=== PATIENT | female | born 1945 | race Caucasian/White ===

== ENCOUNTER 2019-12-13 05:03 | Emergency (ER) | payer MEDICARE, OTHER, SELFPAY ==
--- NOTE | ~2019-12-13 | CT_ITS ---
EXAMINATION: CT brain wo con DATE: 12/13/2019 05:54 INDICATION: Fall with head injury and right-sided headache Parkinson's disease. TECHNIQUE: Computed tomography (CT) of the head was performed without intravenous contrast. Sagittal and coronal reconstructions were performed. The mA was adjusted according to patient size. Iterative reconstruction technique was employed. The dose-length product was 605.33 mGy-cm. COMPARISON: None FINDINGS: No fracture. No acute intracranial hemorrhage, acute infarction or abnormal extra axial fluid collect ion. Symmetric prominence of the sulci and disproportionately the lateral ventricles. There is also m ega cisterna magna. Basal cisterns are patent. No mass/mass effect. The orbits, paranasal sinuses and mastoid air cells are normal. IMPRESSION: 1. No fracture or acute intracranial process. 2. Symmetric enlargement of the lateral ventricles which is disproportionate to the larger of the sul ci most likely moderate central predominant atrophy although differential includes normal pressure hy drocephalus (NPH: clinical triad ataxia/gait disturbance, dementia, urinary incontinence). Reviewed, dictated and finalized at location A. E MAKER IMPRESSION: 1. No fracture or acute intracranial process. 2. Symmetric enlargement of the lateral ventricles which is disproportionate to the larger of the sulci most likely moderate central predominant atrophy altho ugh differential includes normal pressure hydrocephalus (NPH: clinical triad at axia/gait disturbance, dementia, urinary incontinence).
--- NOTE | ~2019-12-13 | CT_ITS ---
EXAMINATION: CT cervical spine wo con DATE: 12/13/2019 05:54 INDICATION: Head injury post fall TECHNIQUE: Computed tomography (CT) of the cervical spine was performed without intravenous contrast. Automated exposure control and iterative reconstruction technique were employed. The dose-length pro duct was 361.95 mGy-cm. COMPARISON: None FINDINGS: Straightening of the normal cervical lordosis. Likely developmental nonfusion of the ring of C1 at th e right lamina. Vertebral body heights are normal. No fracture. There is fusion across the C7-T1 disc space and left facet joint. Severe disc height loss with degenerative endplate changes at C3-C4 thro ugh C6-C7 and at T1-T2. Severe facet osteoarthritis on the right at T1-T2 and bilaterally at T2-T3 an d T3-T4. Mild to moderate facet osteoarthritis throughout the cervical spine. Posterior disc osteophy te complexes at T3-T4 through T6-T7 resulting in multilevel mild central canal stenosis. There is als o severe bilateral uncovertebral osteoarthritis throughout the cervical spine contributing to multile easton mild bilateral neural foraminal stenosis throughout the cervical spine with the exception of C2-C 3 where there is no narrowing. Atherosclerotic calcification is at the bilateral carotid bulbs. Cervi esteban soft tissues are otherwise unremarkable. Visualized portions of the airway and apices of lungs ar e clear. IMPRESSION: 1. Severe cervical spondylosis. No acute osseous abnormality. Reviewed, dictated and finalized at location A. BULATORY CARE
[2019-12-13 05:07] VITALS: BP 176/81; PULSE 74; RESP 16; TEMP 36.6; O2SAT 98
[2019-12-13 05:11] VITALS: BP 149/85; PULSE 71; RESP 22; TEMP 36.8; O2SAT 95
--- NOTE | 2019-12-13 05:21 | ED.FALL ---
HPI - Fall General Chief Complaint: Fall <Chaitanya Babb MD - Last Filed: 12/19/19 06:13> Stated Complaint: fell from bed/ ear lac <Chaitanya Babb MD - Last Filed: 12/19/19 06:13> Time Seen by Provider: 12/13/19 05:13 <Chaitanya Babb MD - Last Filed: 12/19/19 06:13> History of Present Illness HPI Narrative: She fell this morning while getting out of bed and struck her head on the table. She reports chronic pain in the neck which is somewhat worse right now. She also has a headache since the fall. She has chronic dizziness which is no worse than usual. No LOC, weakness. She has Parkinson's disease. <Chaitanya Babb MD - Last Filed: 12/19/19 06:13> Related Data Home Medications: Home Medications Medication Instructions Recorded Confirmed atorvastatin 10 mg tablet 10 mg PO DAILY 12/15/19 12/15/19 carbidopa 25 mg-levodopa 100 mg 3 tablet PO TID tablet 12/15/19 12/15/19 tablet gabapentin 300 mg capsule 600 mg PO BID cap 12/15/19 12/15/19 levothyroxine 100 mcg tablet 100 mcg PO DAILY 12/15/19 12/15/19 losartan 50 mg tablet 50 mg PO DAILY 12/15/19 metoprolol succinate 50 mg 50 mg PO DAILY 12/15/19 12/15/19 tablet,extended release 24 hr <Chaitanya Babb MD - Last Filed: 12/19/19 06:13> Allergies/Adverse Reactions: Allergies Allergy/AdvReac Type Severity Reaction Status Date / Time celecoxib Allergy Unknown Verified 07/21/18 08:20 <Chaitanya Babb MD - Last Filed: 12/19/19 06:13> Review of Systems Review of Systems: All systems reviewed & are unremarkable except as noted in HPI and below <Chaitanya Babb MD - Last Filed: 12/19/19 06:13> Constitutional: Constitutional: Denies fever(s) and Denies weakness <Chaitanya Babb MD - Last Filed: 12/19/19 06:13> Eyes: Eyes: Denies change in vision <Chaitanya Babb MD - Last Filed: 12/19/19 06:13> Cardiovascular: Cardiovascular: Denies chest pain <Chaitanya Babb MD - Last Filed: 12/19/19 06:13> Respiratory: Respiratory: Denies dyspnea <Chaitanya Babb MD - Last Filed: 12/19/19 06:13> Gastrointestinal: Gastrointestinal: Denies nausea <Chaitanya Babb MD - Last Filed: 12/19/19 06:13> Musculoskeletal: Musculoskeletal: Denies back pain <Chaitanya Babb MD - Last Filed: 12/19/19 06:13> Neurologic: Reports dizziness, Denies syncope and Reports headache(s) <Chaitanya Babb MD - Last Filed: 12/19/19 06:13> [facility]LY [facility] Past Medical History Medical History: Medical History (Updated 12/19/19 @ 06:13 by Chaitanya Babb MD) Anemia Anxiety Arthritis Breast cancer Carpal tunnel syndrome Cholecystectomy planned Fibroid tumor HTN (hypertension) Hydrocephalus Multiple allergies Parkinson disease (~2018) Spinal stenosis Thalassemia minor <Chaitanya Babb MD - Last Filed: 12/19/19 06:13> Surgical History Surgical History: Surgical History Cataract extraction status H/O partial thyroidectomy H/O vaginal hysterectomy History of carpal tunnel release History of knee replacement <Chaitanya Babb MD - Last Filed: 12/19/19 06:13> Family History Family History: Family History Mother Family history of suicide Hypertension Patient's mother is Father Family history of emphysema Patient's father is <Chaitanya Babb MD - Last Filed: 12/19/19 06:13> Social History Social History: Social History Smoking status: Never smoker Second hand tobacco smoke exposure: No Alcohol intake: current Gender identity (if verbalized by the patient): Female <Chaitanya Babb MD - Last Filed: 12/19/19 06:13> Exam Const: General: no acute distress and alert <Chaitanya Babb MD - Last Filed: 12/19/19 06:13> Orientation/consc
[2019-12-13] MEDS: ACETAMINOPHEN 500 MG TABLET 1000 MG PO (06:01)
== END 2019-12-13 06:41 | disposition home or self-care (01) ==
PROVIDERS: Emergency Provider Emergency Medicine
DX: S01.311A Laceration without foreign body of right ear, initial encounter (principal); G20 Parkinson's disease; W06.XXXA Fall from bed, initial encounter
CPT/HCPCS: 12011; 70450; 72125; 99284; A9270

== ENCOUNTER → 2020-01-04 11:56 | Outpatient (CLI) | payer MEDICARE, OTHER, SELFPAY ==
--- NOTE | ~2020-01-04 | XR_ITS ---
XR thoracic spine 2V DATE: 01/04/2020 12:30 INDICATION: Thoracic spine pain TECHNIQUE: AP, lateral and swimmer views COMPARISON: 08/24/2019 thoracic spine FINDINGS: There is dextroscoliosis. Diffuse osteopenia. There is diffuse idiopathic skeletal hyperostosis. There is prominent degenerative disc disease in the mid and lower cervical spine. There is mild to moderate anterior wedge compression of T12. Status post T12 vertebroplasty. IMPRESSION: Scoliosis, osteopenia and degenerative changes Compression fracture deformity at T12 Status post T12 vertebroplasty Reviewed, dictated and finalized at location A.
--- NOTE | ~2020-01-04 | XR_ITS ---
XR lumbar spine 6V w bending 01/04/2020 12:30 Indication: Back pain Procedure: 7 views lumbar spine including flexion/extension views Comparison: 08/24/2019 Findings: Stable chronic compression fracture of T12 with vertebroplasty changes. There is disc narro wing involving all lumbar levels with endplate degenerative change. There is moderate multilevel face t hypertrophy involving the mid and lower lumbar spine. There is dextroscoliosis of the lumbar spine centered at L2-3. There are cholecystectomy clips. No acute fracture or traumatic malalignment. No si gnificant alteration of alignment with flexion/extension. Impression: 1: Severe lumbar spondylosis with dextroscoliosis. 2: Chronic T12 compression fracture with associated vertebroplasty change. Reviewed, dictated and finalized at location A. Impression: 1: Severe lumbar spondylosis with dextroscoliosis. 2: Chronic T12 compression fracture with associated vertebroplasty change.
== END ==
PROVIDERS: PCP Family Medicine; Visit Provider Nurse Practitioner Family
DX: M47.816 Spondylosis without myelopathy or radiculopathy, lumbar region (principal); M48.54XA Collapsed vertebra, not elsewhere classified, thoracic region, initial encounter for fracture; M41.84 Other forms of scoliosis, thoracic region; M85.88 Other specified disorders of bone density and structure, other site
CPT/HCPCS: 72070; 72114

== ENCOUNTER 2020-03-17 10:00 | Outpatient (CLI) | payer MEDICARE, OTHER, SELFPAY ==
--- NOTE | ~2020-03-17 | MR_ITS ---
EXAMINATION: MR lumbar spine wo [facility] EXAM DATE: 03/17/2020 11:17 INDICATION: Low back pain. TECHNIQUE: Multi-sequential, multiplanar MR images of the lumbar spine were obtained without contrast . Sagittal T1, T2, T2 fat saturation images. Axial T2 weighted images. There is no prior study for comparison. FINDINGS: Severe disc disease at all lumbar levels, probably with partial fusion at the L5-S1 level. The conus medullaris terminates at the L1 level and has normal signal intensity and morphology. Mild diffuse loss of lumbar vertebral body heights. Chronic moderate and likely treated T12 compression f racture. Paraspinal soft tissue is unremarkable. The vertebral bodies are aligned in the AP dimensio n. Level by level evaluation: T12-L1: There is a mild to moderate diffuse disc bulge. Facet arthropathy: Mild to moderate. Neural foraminal stenosis: Mild to moderate right, mild left. Central canal stenosis: Mild to moderate. L1-L2: There is a mild to moderate diffuse disc bulge. Facet arthropathy: Moderate. Neural foraminal stenosis: Moderate left, mild right. Central canal stenosis: Mild. L2-L3: There is a mild to moderate diffuse disc bulge. Facet arthropathy: Moderate. Neural foraminal stenosis: Moderate left, mild right. Central canal stenosis: Mild. L3-L4: There is a moderate diffuse disc bulge. Facet arthropathy: Moderate. Neural foraminal stenosis: Mild to moderate bilateral. Central canal stenosis: Mild to moderate. L4-L5: There is a moderate diffuse disc bulge. Facet arthropathy: Mild to moderate. Neural foraminal stenosis: Mild to moderate bilateral. Central canal stenosis: Mild. L5-S1: There is a moderate diffuse disc bulge. Facet arthropathy: Mild. Neural foraminal stenosis: Mild left. Central canal stenosis: Minimal. IMPRESSION: 1. Advanced lumbar disc disease. 2. The left L1-2 and L2-3 neural foramen appear most narrowed on exam. Reviewed, dictated and finalized at location A.
--- NOTE | ~2020-03-17 | MR_ITS ---
EXAMINATION: MR thoracic spine wo con EXAM DATE: 03/17/2020 11:01 INDICATION: Chronic mid back pain. TECHNIQUE: Multi-sequential, multiplanar MR images of the thoracic spine were obtained without contra st. Sagittal T1, T2, T2 fat saturation, axial T2 weighted images reviewed. Comparison is made to matt or examination from 09/08/2016. FINDINGS: There is mild to moderate mid thoracic dextroscoliosis, mild lower thoracic levoscoliosis. There is moderate compression fracture of T12 which has likely been treated with methylmethacrylate. Moderate to severe disc disease T1-2, T5-T8, T10-T12, moderate at T8-9. Less at the other thoracic le vels. There is moderate to severe right neural foraminal stenosis at T1-2, moderate right neural foraminal stenosis at T10-11. Less amount of stenosis at the other levels. Small to moderate-sized thoracic dis c bulges, small protrusions with mild to moderate central canal stenosis at T11-12 and T12-L1, mild a t other levels. Spinal cord is being indented from small protrusion at T6-7 and T7-8 without cord neelima ma. There is overall moderate thoracic facet arthropathy. No endplate erosive change. Paraspinal soft tissue is unremarkable. Mild interval progression in these degenerative changes compared to prior st udy. IMPRESSION: Mild interval progression in scattered thoracic spondylosis as detailed above. No acute f indings. Reviewed, dictated and finalized at location A. IMPRESSION: Mild interval progression in scattered thoracic spondylosis as deta iled above. No acute findings.
== END 2020-03-17 10:01 | disposition home or self-care (01) ==
PROVIDERS: PCP Family Medicine; Visit Provider Nurse Practitioner Family
DX: M51.36 Other intervertebral disc degeneration, lumbar region (principal); M47.814 Spondylosis without myelopathy or radiculopathy, thoracic region; M54.5 Low back pain
CPT/HCPCS: 72146; 72148

== ENCOUNTER 2020-04-24 08:51 | Outpatient (CLI) | payer MEDICARE, OTHER, SELFPAY ==
[2020-04-24 09:08] LABS: Basophils Percent Auto 0.6 % (0.2-1.2); Eosinophils Absolute Auto 0.1 K/mm3 (0-0.3); Eosinophils Percent Auto 2.7 % (0-4.4); Hematocrit 37.9 % (37.0-47.0); Hemoglobin 11.2 g/dL (12.0-15.0); Immature Granulocyte Absolute 0.02 K/mm3 (0.00-0.031); Immature Granulocyte Percent A 0.4 % (0-0.5); Lymphocytes Absolute Auto 1.18 K/mm3 (0.9-3.2); Lymphocytes Percent Auto 22.5 % (18.3-44.2); Mean Corpuscular HGB Conc 29.6 g/dl (32-36); Mean Corpuscular Hemoglobin 18.9 pg (26-34); Mean Corpuscular Volume 63.9 fl (80-100); Mean Platelet Volume 10.1 fl (7.4-10.4); Monocytes Absolute Auto 0.3 K/mm3 (0.1-0.6); Monocytes Percent Auto 5.7 % (2.6-8.5); Neutrophils Absolute Auto 3.6 K/mm3 (1.3-6.7); Neutrophils Percent Auto 68.1 % (45.5-73.1); Platelet Count Result 181 k/mm3 (150-375); Red Blood Count 5.93 M/mm3 (4.2-5.4); White Blood Count 5.3 K/mm3 (4.5-10.0)
[2020-04-24 09:20] LABS: Potassium 4.6 mmol/L (3.4-5.0)
[2020-04-24 09:29] LABS: Alanine Aminotransferase 16 U/L (4-35); Albumin Level 4.3 g/dL (3.5-5.1); Alkaline Phosphatase 81 U/L (38-126); Aspartate Amino Transferase 26 U/L (14-36); Bilirubin,Total 0.8 mg/dL (0.2-1.3); Blood Urea Nitrogen 17 mg/dL (7-17); Calcium 9.2 mg/dL (8.4-10.2); Carbon Dioxide 33 mmol/L (22-30); Chloride 102 mmol/L (98-107); Cholesterol 154 mg/dL (0-200); Estimated Glomerular Filt Rate > 60; Glucose 125 mg/dL (65-105); HDL Direct 45 mg/dL; Sodium 137 mmol/L (137-145); Triglycerides 136 mg/dL (<150)
[2020-04-24 09:31] LABS: Anisocytosis 1+ (NORMAL); LDL Cholesterol Direct 74 mg/dL; Platelet Estimate Adequate (Adequate)
[2020-04-24 09:59] LABS: Vitamin D 25 Hydroxy 48.8 ng/mL
== END 2020-04-24 08:52 | disposition home or self-care (01) ==
LOC: ANHLAB 08:53
PROVIDERS: PCP Family Medicine; Visit Provider Nurse Practitioner
DX: D64.9 Anemia, unspecified (principal); I10 Essential (primary) hypertension; E78.5 Hyperlipidemia, unspecified; E03.9 Hypothyroidism, unspecified; E55.9 Vitamin D deficiency, unspecified
CPT/HCPCS: 36415; 80053; 80061; 82306; 84443; 85025

== ENCOUNTER 2020-05-29 14:45 | Outpatient (CLI) | payer MEDICARE, OTHER, SELFPAY ==
--- NOTE | ~2020-05-29 | XR_ITS ---
XR lumbar spine min 4V DATE: 05/29/2020 15:19 INDICATION: Low back pain radiating to left hip TECHNIQUE: AP, lateral, bilateral oblique and coned lateral lumbosacral views COMPARISON: 03/17/2020 MRI lumbar spine 08/24/2019 lumbar spine FINDINGS: Diffuse osteopenia. There is moderate anterior wedge compression fracture deformity and vertebroplasty at T12. There is degenerative spurring of the included lower thoracic spine. There is mild dextroscoliosis of the lumbar spine. There is severe degenerative disease throughout the lumbar and lumbosacral spine with virtual obliter ation of interspace and apparent fusion at L5-S1. No fracture or bone destruction of the lumbar spine is evident. The lumbar pedicles appear intact. No spondylolysis or spondylolisthesis is evident. There is degenerative change at the apophyseal join ts. The sacroiliac joints appear normal. Status post cholecystectomy. IMPRESSION: Severe degenerative changes of the thoracic and lumbar spine Compression fracture and vertebroplasty at T12 Severe degenerative disc disease throughout the lumbar spine Fusion at L5-S1 interspace Reviewed, dictated and finalized at location B.
--- NOTE | ~2020-05-29 | XR_ITS ---
XR hip LT min 3V w AP pelvis DATE: 05/29/2020 15:20 INDICATION: Generalized left hip pain TECHNIQUE: AP pelvis. AP, lateral, crosstable lateral views of left hip COMPARISON: None FINDINGS: Moderate osteopenia. No pelvic fracture or bone destruction. The pubic symphysis and sacral iliac joints are normally alig noe. No fracture, dislocation, avascular necrosis or bone destruction of the left hip. Hip joint spaces ar e symmetric and relatively preserved.. IMPRESSION: Moderate osteopenia Severe degenerative disc disease in the lower lumbar spine Reviewed, dictated and finalized at location B.
== END 2020-05-29 14:46 | disposition home or self-care (01) ==
LOC: ANHIMG 14:54
PROVIDERS: PCP Family Medicine; Visit Provider Nurse Practitioner
DX: M85.852 Other specified disorders of bone density and structure, left thigh (principal); M51.36 Other intervertebral disc degeneration, lumbar region; Z98.1 Arthrodesis status
CPT/HCPCS: 72110; 73502

== ENCOUNTER 2020-11-16 08:38 | Outpatient (CLI) | payer MEDICARE, OTHER, SELFPAY ==
[2020-11-16 09:02] LABS: Basophils Percent Auto 0.8 % (0.2-1.2); Eosinophils Absolute Auto 0.2 K/mm3 (0-0.3); Eosinophils Percent Auto 3.7 % (0-4.4); Hematocrit 37.3 % (37.0-47.0); Hemoglobin 10.9 g/dL (12.0-15.0); Immature Granulocyte Absolute 0.01 K/mm3 (0.00-0.031); Immature Granulocyte Percent A 0.2 % (0-0.5); Lymphocytes Percent Auto 31.2 % (18.3-44.2); Mean Corpuscular HGB Conc 29.2 g/dl (32-36); Mean Corpuscular Hemoglobin 18.7 pg (26-34); Mean Corpuscular Volume 63.9 fl (80-100); Mean Platelet Volume 9.2 fl (7.4-10.4); Monocytes Absolute Auto 0.3 K/mm3 (0.1-0.6); Monocytes Percent Auto 5.8 % (2.6-8.5); Neutrophils Percent Auto 58.3 % (45.5-73.1); Platelet Count Result 161 k/mm3 (150-375); Red Blood Count 5.84 M/mm3 (4.2-5.4); Red Cell Distribution Width 15.4 % (11.5-14.5); White Blood Count 5.1 K/mm3 (4.5-10.0)
[2020-11-16 09:14] LABS: Alanine Aminotransferase 11 U/L (4-35); Albumin Level 3.8 g/dL (3.5-5.1); Alkaline Phosphatase 67 U/L (38-126); Anion Gap 0 mmol/L (8-16); Aspartate Amino Transferase 19 U/L (14-36); Bilirubin,Total 0.7 mg/dL (0.2-1.3); Blood Urea Nitrogen 17 mg/dL (7-17); Calcium 8.9 mg/dL (8.4-10.2); Carbon Dioxide 36 mmol/L (22-30); Chloride 102 mmol/L (98-107); Cholesterol 128 mg/dL (0-200); Estimated Glomerular Filt Rate 54; Glucose 113 mg/dL (65-105); HDL Direct 45 mg/dL; Hemoglobin A1C 5.7 % (<5.7); Potassium 4.3 mmol/L (3.4-5.0); Sodium 138 mmol/L (137-145); Triglycerides 150 mg/dL (<150)
[2020-11-16 09:24] LABS: LDL Cholesterol Direct 55 mg/dL
[2020-11-19 06:24] LABS: Vitamin D 1,25 (OH)2 Total 36 pg/mL (18-72); Vitamin D2 1,25 (OH)2 9 pg/mL; Vitamin D3 1,25 (OH)2 27 pg/mL
== END 2020-11-16 08:39 | disposition home or self-care (01) ==
PROVIDERS: PCP Family Medicine; Visit Provider Family Medicine
DX: E55.9 Vitamin D deficiency, unspecified (principal); I10 Essential (primary) hypertension; R73.01 Impaired fasting glucose; E78.2 Mixed hyperlipidemia; E04.9 Nontoxic goiter, unspecified
CPT/HCPCS: 36415; 80053; 80061; 82652; 83036; 84443; 85025

== ENCOUNTER 2021-03-14 16:19 | Outpatient (CLI) | payer MEDICARE, OTHER, SELFPAY ==
--- NOTE | ~2021-03-14 | XR_ITS ---
XR hand LT min 3V DATE: 03/14/2021 16:37 INDICATION: Contusion TECHNIQUE: 3 views COMPARISON: None FINDINGS: There is osteoarthritis at the first carpometacarpal joint and multiple interphalangeal brooks nts. There is chondrocalcinosis of the triangular cartilage. No fracture or dislocation, periosteal reaction or bone destruction. IMPRESSION: Polyarticular osteoarthritis Reviewed, dictated and finalized at location B.
== END 2021-03-14 16:20 | disposition home or self-care (01) ==
PROVIDERS: PCP Family Medicine; Visit Provider Family Medicine
DX: S60.229A Contusion of unspecified hand, initial encounter (principal); M19.042 Primary osteoarthritis, left hand
CPT/HCPCS: 73130

== ENCOUNTER 2021-04-25 10:35 | Emergency (ER) | payer MEDICARE, OTHER, SELFPAY ==
[2021-04-25] VITALS (7 sets, daily range): BP systolic 124–142; BP diastolic 62–79; PULSE 63–81; RESP 15–22; TEMP 36.1; O2SAT 98–100
--- NOTE | ~2021-04-25 | XR_ITS ---
EXAMINATION: XR chest 2V DATE: 04/25/2021 11:04 INDICATION: Shortness of breath TECHNIQUE: AP and lateral views of the chest are obtained. COMPARISON: 09/04/2017 FINDINGS: The lungs are free of acute opacities. There is no pleural effusion or pneumothorax. The ca rdiomediastinal silhouette is normal. There are bridging osteophytes at multiple levels in the spine, consistent with diffuse idiopathic skeletal hyperostosis (DISH). There is an old healed fracture of the right clavicle. Ventriculoperitoneal shunt catheter tubing courses over the right anterior thorax . IMPRESSION: 1. No acute cardiopulmonary abnormality. Reviewed, dictated and finalized at location B.
--- NOTE | 2021-04-25 10:44 | ECG_ITS ---
Measurements Intervals [place] Rate: 76 P: 26 [place]: 149 QRS: 0 QRSD: 96 T: -2 QT: 374 QTc: 421 Interpretive Statements SINUS RHYTHM INCOMPLETE RIGHT BUNDLE BRANCH BLOCK BORDERLINE T WAVE ABNORMALITY- INFERIOR LEADS BASELINE ARTIFACT- V4-V6 BORDERLINE ECG Electronically Signed On 04-25-2021 11:32:05 CDT by Danny Valle D.O.
[2021-04-25 10:55] LABS: Basophils Percent Auto 0.6 % (0.2-1.2); Eosinophils Absolute Auto 0.1 K/mm3 (0-0.3); Eosinophils Percent Auto 1.5 % (0-4.4); Hematocrit 36.9 % (37.0-47.0); Hemoglobin 11.1 g/dL (12.0-15.0); Immature Granulocyte Absolute 0.01 K/mm3 (0.00-0.031); Immature Granulocyte Percent A 0.1 % (0-0.5); Lymphocytes Absolute Auto 2.35 K/mm3 (0.9-3.2); Lymphocytes Percent Auto 34.7 % (18.3-44.2); Mean Corpuscular HGB Conc 30.1 g/dl (32-36); Mean Corpuscular Volume 63.3 fl (80-100); Mean Platelet Volume 9.6 fl (7.4-10.4); Monocytes Absolute Auto 0.5 K/mm3 (0.1-0.6); Monocytes Percent Auto 7.2 % (2.6-8.5); Neutrophils Absolute Auto 3.8 K/mm3 (1.3-6.7); Neutrophils Percent Auto 55.9 % (45.5-73.1); Platelet Count Result 203 k/mm3 (150-375); Red Blood Count 5.83 M/mm3 (4.2-5.4); White Blood Count 6.8 K/mm3 (4.5-10.0)
[2021-04-25 11:08] LABS: D Dimer 0.57 ug/mL (<0.48)
[2021-04-25 11:09] LABS: Anion Gap 9 mmol/L (8-16); Blood Urea Nitrogen 38 mg/dL (7-17); Calcium 8.9 mg/dL (8.4-10.2); Carbon Dioxide 27 mmol/L (22-30); Chloride 102 mmol/L (98-107); Estimated CRCL calculation 34 ml/min; Estimated Glomerular Filt Rate 34; Glucose 141 mg/dL (65-105); Potassium 4.4 mmol/L (3.4-5.0); Sodium 138 mmol/L (137-145)
--- NOTE | 2021-04-25 12:18 | ED.SOB ---
HPI - SOB/Dyspnea General Chief Complaint: Shortness of Breath/Dyspnea Stated Complaint: SOB Time Seen by Provider: 04/25/21 12:07 Source: patient and RN notes reviewed Mode of arrival: ambulatory Limitations: no limitations History of Present Illness HPI Narrative: Patient 75 years old white female presented to the ED with shortness of breath started few minutes prior to arrival to the emergency room. Patient had similar symptoms few days ago while working in the garden with a very hot environment. Patient reports walking to her car was also very hot and once started driving started having shortness of breath which she is still have it right now associated with sore throat, postnasal discharge, runny nose. History of seasonal allergy. Patient denies any fever, chills, nausea, vomiting, chest pain, back pain or abdominal pain. Patient reported having similar symptoms years ago without specific diagnosis. History of hypertension, hyperlipidemia, partial thyroidectomy, patient does not smoke, drinks occasionally, no blood thinner, no aspirin. Patient is fully vaccinated for COVID-19. Related Data Home Medications Medication Instructions Recorded Confirmed methylnaltrexone 150 mg tablet 450 mg PO DAILY 01/11/21 03/29/21 Allergies Allergy/AdvReac Type Severity Reaction Status Date / Time celecoxib Allergy Mild nausea Verified 04/25/21 10:50 sulfur [From Sulfur-8] Allergy Mild abdominal Verified 04/25/21 10:50 pain Review of Systems Review of Systems: Narrative: CONSTITUTIONAL: Denies fever, chills, or sweats. EYES: Denies visual changes, redness, or discharge. ENT: Denies rhinorrhea, congestion, sore throat, or otalgia. CARDIOVASCULAR: Denies chest pain, palpitations, or edema. RESPIRATORY: Denies cough or dyspnea. GASTROINTESTINAL: Denies abdominal pain, nausea, vomiting, or diarrhea. GENITOURINARY: Denies dysuria or hematuria. SKIN: Denies rash or itching. MUSCULOSKELETAL: Denies back pain, joint pain, or myalgia. NEUROLOGIC: Denies headache, numbness, or weakness. PSYCHIATRIC: Denies anxiety or depression. [facility] Past Medical History Medical History Anemia Anxiety Arthritis Benign essential HTN Breast cancer Carpal tunnel syndrome Central retinal vein occlusion, left eye (~11/2019) Cholecystectomy planned Chronic insomnia Fibroid tumor HTN (hypertension) Hydrocephalus 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 to medical condition Multiple allergies Normal pressure hydrocephalus Parkinson disease (~2018) Spinal stenosis Thalassemia minor Surgical History Surgical History Cataract extraction status H/O partial thyroidectomy H/O vaginal hysterectomy History of carpal tunnel release History of knee replacement 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 Family History Family History Mother Family history of suicide Hypertension Patient's mother is Father Family history of emphysema Patient's father is Social History Social History Social History: Smoking status: Never smoker Second hand tobacco smoke exposure: No Alcohol intake: current Drinks per week: 2 Substance use: current Substance use type: marijuana Other substance usage details: Pt uses Medical Marijuana Gender identity (if verbalized by the patient): Female Exam Narrative: Exam Narrative: General appearance: Well-developed, well-nourished Skin: Normal color Head: Normocephalic, nontraumatic Eyes: Clear conjunctiva ENT: Oropharynx normal, ears normal, nose normal Neck: Supple, nontender Chest and respiratory: Airway patent, no respiratory distress, no accessory muscle use, scattered coarse rhonchi with exhalation Heart: Regular rate/rhythm Abdomen: Soft, nontender, no organomegaly, quiet bowel so
[2021-04-25] MEDS: predniSONE 20 MG TABLET 60 MG PO (12:29)
[2021-04-25] MEDS: ALBUTEROL SULFATE NEB 2.5 MG/0.5 ML INH 5 MG INHALATION (12:41)
[2021-04-25] MEDS: SODIUM CHLORIDE 0.9% IV 1,000 ML 999 ML IV CONT (12:42)
[2021-04-25] MEDS: IPRATROPIUM BR 0.02% INH SOLN 0.5 MG/2.5 ML VIAL INHALATION (12:42)
[2021-04-25 12:48] LABS: Alveolar/Arterial O2 Gradient 26.1 mmHg; Base Excess ABG 0.6 mEq/l (+/-2.0); Fractional Inspired Oxygen 21 %; HCO3 ABG 24.6 mEq/l (22.0-26.0); Oxygen Content ABG 15.2 %vol (16.0-22.0); Oxygen Saturation ABG 96.1 % (95.0-100.0); Oxyhemoglobin 94.3 % THb (90.0-100.0); PCO2 ABG 37.4 mmHg (35.0-45.0); PO2 ABG 78.8 mmHg (80.0-100.0); PO2 FiO2 Ratio Arterial Blood 3.75 %; Total Hemoglobin 11.4 g/dL (12.0-18.0); pH ABG 7.436 (7.350-7.450)
[2021-04-25 12:49] LABS: Device ROOM AIR; Modified Allen's Test Pass; Site Drawn RIGHT RADIAL
--- NOTE | 2021-05-09 16:11 | PC.NURSE ---
LATE ENTRY This note is being entered to document information to the patient's record. The following information was omitted on [04/25/21], by [Teresa Nielson RN . Stop time of normal saline at 1310. ].
== END 2021-04-25 14:00 | disposition home or self-care (01) ==
PROVIDERS: Emergency Provider Emergency Medicine; PCP Family Medicine
DX: J06.9 Acute upper respiratory infection, unspecified (principal); E86.0 Dehydration; I10 Essential (primary) hypertension; E78.5 Hyperlipidemia, unspecified; E89.0 Postprocedural hypothyroidism; M19.90 Unspecified osteoarthritis, unspecified site; Z85.3 Personal history of malignant neoplasm of breast; G20 Parkinson's disease; Z98.49 Cataract extraction status, unspecified eye; Z96.659 Presence of unspecified artificial knee joint; Z98.2 Presence of cerebrospinal fluid drainage device; G91.9 Hydrocephalus, unspecified; I45.10 Unspecified right bundle-branch block; R94.31 Abnormal electrocardiogram [ECG] [EKG]
CPT/HCPCS: 36415; 36600; 71046; 80048; 82805; 85025; 85380; 93005; 94640; 99284; J7030; J7512

== ENCOUNTER 2021-06-06 10:33 | Emergency (ER) | payer MEDICARE, OTHER, SELFPAY ==
--- NOTE | 2021-06-06 10:39 | PC.NURSE ---
patient stopped by triage desk and stated she wasnt going to wait and was going home. Pt advised she can come back anytime to be seen
== END 2021-06-06 10:40 | disposition left against medical advice (07) ==
PROVIDERS: PCP Family Medicine
DX: Z53.21 Procedure and treatment not carried out due to patient leaving prior to being seen by health care provider (principal)
CPT/HCPCS: 99199

== ENCOUNTER 2021-06-07 02:28 | Day surgery (SDC) | payer MEDICARE, OTHER, SELFPAY ==
[2021-06-04 14:44] VITALS: BMI 37.2
--- NOTE | 2021-06-07 10:36 | WPDGICN ---
Assessment and Plan Assessment and plan (1) Dysphagia: Code(s): R13.10 - Dysphagia, unspecified Status: Acute Assessment and Plan: Patient complains of difficulty swallowing. Food hangs up in the mid chest. This is suspicious for esophageal narrowing. Plan is for EGD to assess more thoroughly. (2) Normal pressure hydrocephalus: Code(s): G91.2 - (Idiopathic) normal pressure hydrocephalus Status: Chronic GI Consult Note Consult date/time: 06/07/21 10:36 HPI: Olga Bansal is a 75 year old female Complains of difficulty swallowing. Patient reports for the last 1-1/2 years. food will catch in the chest on swallowing. This typically happens with larger pieces of food. She denies any abdominal pain. She has had no heartburn. She recently was found to have hydrocephalus and shunt has been anticipated. Patient denies any bleeding or weight loss. Patient presents today for EGD to assess for potential causes for difficulty swallowing. Review of Systems Review of Systems: All systems reviewed & are unremarkable except as noted in HPI and below PMFSH Past Medical History Medical History Anemia Anxiety Arthritis Benign essential HTN Breast cancer Carpal tunnel syndrome Central retinal vein occlusion, left eye (~11/2019) Cholecystectomy planned Chronic insomnia Fibroid tumor HTN (hypertension) Hydrocephalus 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 to medical condition Multiple allergies Normal pressure hydrocephalus Parkinson disease (~2017) Spinal stenosis Thalassemia minor Surgical History Surgical History Cataract extraction status H/O partial thyroidectomy H/O vaginal hysterectomy History of carpal tunnel release History of knee replacement 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 Family History Family History Mother Family history of suicide Hypertension Patient's mother is Father Family history of emphysema Patient's father is Social History Social History (Updated 05/10/21 @ 09:43 by Lyn Huertas) Social History: Smoking status: Never smoker Second hand tobacco smoke exposure: No Alcohol intake: current Drinks per week: 2 Alcohol use details: Occasionally Substance use: never Substance use type: marijuana Other substance usage details: MEDICAL MARIJUANA- GUMMIES/VAPE Living arrangements: with family Gender identity (if verbalized by the patient): Female Spiritual care concerns: No Meds Home Medications and Allergies Home Medications Medication Instructions Recorded Confirmed Type valsartan 160 mg tablet 160 mg PO BID #180 tablet 01/11/21 06/07/21 Rx levothyroxine 100 mcg tablet 100 mcg PO DAILY #30 tablet 04/01/21 06/07/21 Rx atorvastatin 10 mg PO DAILY 06/04/21 06/07/21 History hydrochlorothiazide 12.5 mg PO DAILY 06/04/21 06/07/21 History methocarbamol 500 mg PO BID PRN 06/04/21 06/07/21 History metoprolol succinate 50 mg PO DAILY 06/04/21 06/07/21 History morphine 15 mg PO Q12H PRN 06/04/21 06/07/21 History buspirone 5 mg tablet 5 mg PO TID #90 tablet 06/05/21 06/07/21 Rx gabapentin 300 mg capsule 600 mg PO BID #180 cap 06/05/21 06/07/21 Rx Allergies Allergy/AdvReac Type Severity Reaction Status Date / Time celecoxib Allergy Mild nausea Verified 06/07/21 10:08 sulfur [From Sulfur-8] Allergy Mild abdominal Verified 06/07/21 10:08 pain Exam Narrative: Physical exam reveals patient to be alert. Vital signs stable. HEENT exam is unremarkable. Patient is anicteric. Lungs are clear to auscultation and percussion. Heart is without murmur or extra sounds. Abdominal exam bowel sounds are present soft nontender with no organomegaly. Digital external rectal exam deferred at this time.
[2021-06-07 10:45] VITALS: BP 214/85; PULSE 64; RESP 18; TEMP 35.8; O2SAT 100; BMI 37.6
--- NOTE | 2021-06-07 10:49 | SUR.PREOP ---
1035 DR OCHOA MADE AWARE OF ELEVATED BP AND C/O HEADACHE. ORDER RECEIVED FOR 10MG IV HYDRALAZINE.
--- NOTE | 2021-06-07 10:50 | WPDANESEPPF ---
Anes - Initial Pre Proc Eval Procedure: Operation Date: 06/07/21 10:45 Proposed Procedures p Esophagogastroduodenoscopy - Calderon Castro MD Date/Time: 06/07/21 10:50 Surgeon: Calderon Castro MD Pre Op Diagnosis: dysphagia Patient Data Age: 75 Gender: F Height: 1.64 m Weight: 101 kg Last Vital Signs Temp 35.8 C L 06/07/21 10:45 Pulse 64 06/07/21 10:45 Resp 18 06/07/21 10:45 BP 214/85 H 06/07/21 10:45 Pulse Ox 100 06/07/21 10:45 Allergies Allergy/AdvReac Type Severity Reaction Status Date / Time celecoxib Allergy Mild nausea Verified 06/07/21 10:08 sulfur [From Sulfur-8] Allergy Mild abdominal Verified 06/07/21 10:08 pain Home Medications Medication Instructions Recorded Confirmed Type valsartan 160 mg tablet 160 mg PO BID #180 tablet 01/11/21 06/07/21 Rx levothyroxine 100 mcg tablet 100 mcg PO DAILY #30 tablet 04/01/21 06/07/21 Rx atorvastatin 10 mg PO DAILY 06/04/21 06/07/21 History hydrochlorothiazide 12.5 mg PO DAILY 06/04/21 06/07/21 History methocarbamol 500 mg PO BID PRN 06/04/21 06/07/21 History metoprolol succinate 50 mg PO DAILY 06/04/21 06/07/21 History morphine 15 mg PO Q12H PRN 06/04/21 06/07/21 History buspirone 5 mg tablet 5 mg PO TID #90 tablet 06/05/21 06/07/21 Rx gabapentin 300 mg capsule 600 mg PO BID #180 cap 06/05/21 06/07/21 Rx Patient hx anesthesia problems: none Family hx anesthesia problems: none PMFSH Past Medical History Medical History Anemia Anxiety Arthritis Benign essential HTN Breast cancer Carpal tunnel syndrome Central retinal vein occlusion, left eye (~11/2019) Cholecystectomy planned Chronic insomnia Fibroid tumor HTN (hypertension) Hydrocephalus 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 to medical condition Multiple allergies Normal pressure hydrocephalus Parkinson disease (~2017) Spinal stenosis Thalassemia minor Surgical History Surgical History Cataract extraction status H/O partial thyroidectomy H/O vaginal hysterectomy History of carpal tunnel release History of knee replacement 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 (ventriculoperitoneal) shunt status Family History Family History Mother Family history of suicide Hypertension Patient's mother is Father Family history of emphysema Patient's father is Social History Social History Social History: Smoking status: Never smoker Second hand tobacco smoke exposure: No Alcohol intake: current Drinks per week: 2 Alcohol use details: Occasionally Substance use: never Substance use type: marijuana Other substance usage details: MEDICAL MARIJUANA- GUMMIES/VAPE Living arrangements: with family Gender identity (if verbalized by the patient): Female Spiritual care concerns: No Anes - Eval Final PreProcedure Day of Procedure 06/07/21 10:50 Patient weight: obese Heart: regular rate and rhythm Lungs: clear to auscultation Airway: Mallampati scale class II Neurological: other (alert) Last oral intake: >/= 8 hours ASA classification: III Emergent: no Anesthetic plan: proceed Anesthesia type and monitoring: general GIVS and standard monitoring Informed Consent: The patient's anesthetic plan and its attendant risks and benefits were discussed with the patient/family/POA. Questions were solicited and answers provided to the satisfaction of the patient/family/POA.
[2021-06-07] MEDS: LACTATED RINGERS 1,000 ML 150 ML IV CONT (10:57)
[2021-06-07] MEDS: hydrALAZINE HCL 20 MG/ML VIAL 10 MG IV PUSH (10:58)
[2021-06-07 11:08] VITALS: BP 177/69; PULSE 65; RESP 18; O2SAT 98
[2021-06-07] MEDS: BENZOCAINE (*SP) 60 ML SPRAY CAN (HURRICAINE) 1 SPRAY MUCOUS MEM (11:12)
[2021-06-07 11:27] VITALS: BP 129/59; PULSE 67; RESP 16; O2SAT 100
[2021-06-07 11:37] VITALS: BP 129/89; PULSE 68; RESP 20; O2SAT 100
[2021-06-07 11:47] VITALS: BP 129/98; PULSE 69; RESP 21; O2SAT 100
[2021-06-07 11:51] VITALS: BP 129/98; PULSE 69; RESP 21; O2SAT 100
== END 2021-06-07 11:55 | disposition home or self-care (01) ==
PROVIDERS: PCP Family Medicine; Visit Provider Internal Medicine Gastroenterology
PROC: 0DJ08ZZ Inspection of Upper Intestinal Tract, Via Natural or Artificial Opening Endoscopic (ICD-10-PCS; CPT 43235; principal; 2021-06-07 10:45)
DX: R13.10 Dysphagia, unspecified (principal); K57.12 Diverticulitis of small intestine without perforation or abscess without bleeding; G91.2 (Idiopathic) normal pressure hydrocephalus; D64.9 Anemia, unspecified; F41.9 Anxiety disorder, unspecified; I10 Essential (primary) hypertension; M19.90 Unspecified osteoarthritis, unspecified site; Z85.3 Personal history of malignant neoplasm of breast; G47.00 Insomnia, unspecified; G20 Parkinson's disease; M48.00 Spinal stenosis, site unspecified; D56.3 Thalassemia minor; Z90.710 Acquired absence of both cervix and uterus; Z96.659 Presence of unspecified artificial knee joint; Z79.899 Other long term (current) drug therapy
CPT/HCPCS: 43235; 43450; J0360; J2704; J7120

== ENCOUNTER 2021-06-26 13:09 | Outpatient (CLI) | payer MEDICARE, OTHER, SELFPAY ==
--- NOTE | ~2021-06-26 | XR_ITS ---
EXAMINATION: XR knee LT 3V DATE: 06/26/2021 13:28 INDICATION: Left knee injury and pain. TECHNIQUE: 3 views of left knee were obtained. COMPARISON: Left knee radiographs 01/17/2019 FINDINGS: There is a total left knee arthroplasty without patellar resurfacing in near-anatomic align ment. No fracture. No periprosthetic lucency to suggest loosening or infection. There is a small knee joint effusion. There are loose bodies in the knee joint posteriorly. IMPRESSION: 1. Total left knee arthroplasty in near-anatomic alignment. 2. Small left knee joint effusion with loose bodies. Reviewed, dictated and finalized at location A.
== END 2021-06-26 13:10 | disposition home or self-care (01) ==
PROVIDERS: PCP Family Medicine; Visit Provider Nurse Practitioner Family
DX: M25.462 Effusion, left knee (principal); Z96.652 Presence of left artificial knee joint; W19.XXXA Unspecified fall, initial encounter; M23.42 Loose body in knee, left knee
CPT/HCPCS: 73562

== ENCOUNTER 2021-11-23 09:58 | Outpatient (CLI) | payer MEDICARE, OTHER, SELFPAY ==
[2021-11-23 10:22] LABS: Basophils Percent Auto 0.7 % (0.2-1.2); Eosinophils Absolute Auto 0.2 K/mm3 (0-0.3); Eosinophils Percent Auto 2.8 % (0-4.4); Hematocrit 37.2 % (37.0-47.0); Hemoglobin 11.4 g/dL (12.0-15.0); Immature Granulocyte Absolute 0.01 K/mm3 (0.00-0.031); Immature Granulocyte Percent A 0.2 % (0-0.5); Lymphocytes Absolute Auto 1.28 K/mm3 (0.9-3.2); Lymphocytes Percent Auto 23.8 % (18.3-44.2); Mean Corpuscular HGB Conc 30.6 g/dl (32-36); Mean Corpuscular Hemoglobin 19.4 pg (26-34); Mean Corpuscular Volume 63.3 fl (80-100); Mean Platelet Volume 9.3 fl (7.4-10.4); Monocytes Absolute Auto 0.3 K/mm3 (0.1-0.6); Monocytes Percent Auto 4.8 % (2.6-8.5); Neutrophils Absolute Auto 3.6 K/mm3 (1.3-6.7); Neutrophils Percent Auto 67.7 % (45.5-73.1); Platelet Count Result 158 k/mm3 (150-375); Red Blood Count 5.88 M/mm3 (4.2-5.4); Red Cell Distribution Width 16.7 % (11.5-14.5); White Blood Count 5.4 K/mm3 (4.5-10.0)
[2021-11-23 10:47] LABS: Cholesterol 133 mg/dL (0-200); HDL Direct 39 mg/dL; Triglycerides 154 mg/dL (<150)
[2021-11-23 10:51] LABS: Erythrocyte Sedimentation Rate 15 mm/hr (0-20)
[2021-11-23 10:58] LABS: LDL Cholesterol Direct 58 mg/dL
[2021-11-23 11:06] LABS: Free T4 Free Thyroxine 1.39 ng/mL (0.78-2.19)
[2021-11-23 11:13] LABS: Thyroid Stimulating Hormone 0.802 uIU/mL (0.465-4.680)
== END 2021-11-23 09:59 | disposition home or self-care (01) ==
LOC: ANHLAB 10:01
PROVIDERS: PCP Family Medicine; Visit Provider Family Medicine
DX: I10 Essential (primary) hypertension (principal); L40.9 Psoriasis, unspecified; E03.9 Hypothyroidism, unspecified; E78.2 Mixed hyperlipidemia; R53.82 Chronic fatigue, unspecified
CPT/HCPCS: 36415; 80061; 82607; 84439; 84443; 85025; 85652

== ENCOUNTER 2022-01-14 15:33 | Emergency (ER) | payer MEDICARE, OTHER, SELFPAY ==
--- NOTE | ~2022-01-14 | XR_ITS ---
EXAMINATION: XR chest 2V DATE: 01/14/2022 15:58 INDICATION: Cough and shortness of breath TECHNIQUE: PA and lateral views of the chest are obtained. COMPARISON: 04/25/2021 FINDINGS: The lungs are free of acute opacities. There is no pleural effusion or pneumothorax. The ca rdiomediastinal silhouette is normal. There are bridging osteophytes at multiple levels in the spine, consistent with diffuse idiopathic skeletal hyperostosis (DISH). Ventriculoperitoneal shunt catheter tubing courses anteriorly over the right hemithorax. Surgical clips in the right upper quadrant are likely from prior cholecystectomy. IMPRESSION: 1. No acute cardiopulmonary abnormality. Reviewed, dictated and finalized at location B.
--- NOTE | 2022-01-14 15:39 | ED.SOB ---
HPI - SOB/Dyspnea General Chief Complaint: Upper Respiratory Infection Stated Complaint: COUGH/SOB Time Seen by Provider: 01/14/22 15:45 Source: patient Mode of arrival: ambulatory Limitations: no limitations History of Present Illness HPI Narrative: Ms. Bansal is a 76-year-old female patient presenting to the clinic today with complaints of shortness of breath, nonproductive cough, runny nose, nasal congestion, generalized weakness, and sinus pressure. She reports her symptoms started approximately of last week. She denies any known fever but she has had some chills. She started out with a productive cough and has been taking Mucinex and now the cough is nonproductive. No history of COPD or asthma. She is a former smoker and continues to occasionally vape marijuana. No known exposure to anyone with Covid. She reports she did do a Covid test on Thursday and it was negative at the time. No known exposure to anyone with influenza. No one else in the home is sick currently. Has had a history of pneumonia in the past. MD elicited complaint: shortness of breath and cough Pertinent past history: pneumonia Related Data Home Medications Medication Instructions Recorded Confirmed hydrocodone bitartrate 30 mg 30 mg PO Q12H 11/21/21 12/26/21 capsule, oral only, extended rel 12 hr methocarbamol 500 mg tablet 500 mg PO QHS 11/21/21 12/26/21 Allergies Allergy/AdvReac Type Severity Reaction Status Date / Time celecoxib Allergy Mild nausea Verified 12/26/21 11:16 sulfur [From Sulfur-8] Allergy Mild abdominal Verified 12/26/21 11:16 pain Review of Systems Review of Systems: Pertinent positives per HPI. Patient denies any fever, rash, headache, visual changes, dizziness, chest pain, palpitations, nausea, vomiting, diarrhea, constipation, abdominal pain, or any urinary issues. [facility] Past Medical History Medical History Anemia Anxiety Arthritis Benign essential HTN Breast cancer Carpal tunnel syndrome Central retinal vein occlusion, left eye (~11/2019) Cholecystectomy planned Chronic insomnia Fibroid tumor HTN (hypertension) Hydrocephalus 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 to medical condition Multiple allergies Normal pressure hydrocephalus Parkinson disease (~2017) Spinal stenosis Thalassemia minor Surgical History Surgical History Cataract extraction status H/O partial thyroidectomy H/O vaginal hysterectomy Approx 2005 History of carpal tunnel release History of knee replacement Most recent was approx 2018. [address] 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 (ventriculoperitoneal) shunt status Approx 2019, [facility] Neurology Family History Family History Mother Family history of suicide Hypertension Patient's mother is Father Family history of emphysema Patient's father is Other Arthritis Social History Social History Social History: Smoking status: Former smoker Second hand tobacco smoke exposure: No Alcohol intake: current Alcohol use details: Occasionally Substance use: current Substance use type: marijuana Other substance usage details: MEDICAL MARIJUANA- GUMMIES/VAPE Gender identity (if verbalized by the patient): Female Sexual Orientation (if Verbalized by the Patient): Straight or Heterosexual Spiritual care concerns: No Comments At the time of my signature, I reviewed and agree with the nursing past medical, surgical, social, and family history. There is no relevant family history pertinent to the patient complaint. Course Course Emergency Course: Portions of this record may have been created with voice recognition software. Level of Care: Express Care Visit Vital Signs Vital signs: Vital Sig
[2022-01-14 15:43] VITALS: BP 149/93; PULSE 73; RESP 22; TEMP 36; O2SAT 100
== END 2022-01-14 16:23 | disposition home or self-care (01) ==
PROVIDERS: Emergency Provider Nurse Practitioner Family; PCP Family Medicine
DX: J06.9 Acute upper respiratory infection, unspecified (principal); R09.82 Postnasal drip; R06.02 Shortness of breath; Z87.891 Personal history of nicotine dependence; I10 Essential (primary) hypertension; G91.9 Hydrocephalus, unspecified; G20 Parkinson's disease; M48.00 Spinal stenosis, site unspecified; M19.90 Unspecified osteoarthritis, unspecified site; Z85.3 Personal history of malignant neoplasm of breast; Z98.49 Cataract extraction status, unspecified eye; Z96.659 Presence of unspecified artificial knee joint
CPT/HCPCS: 71046; 87804; 99213; G0463

== ENCOUNTER 2022-06-04 07:29 | Outpatient (CLI) | payer MEDICARE, OTHER, SELFPAY ==
[2022-06-04 07:51] LABS: Basophils Percent Auto 0.6 % (0.2-1.2); Eosinophils Absolute Auto 0.2 K/mm3 (0-0.3); Eosinophils Percent Auto 2.9 % (0-4.4); Hematocrit 38.5 % (37.0-47.0); Hemoglobin 11.3 g/dL (12.0-15.0); Immature Platelet Fraction Pct 2.7 % (0.9-11.2); Lymphocytes Percent Auto 32.8 % (18.3-44.2); Mean Corpuscular HGB Conc 29.4 g/dl (32-36); Mean Corpuscular Hemoglobin 18.8 pg (26-34); Monocytes Absolute Auto 0.3 K/mm3 (0.1-0.6); Monocytes Percent Auto 6.2 % (2.6-8.5); Neutrophils Percent Auto 57.5 % (45.5-73.1); Platelet Count Result 154 k/mm3 (150-375); Red Blood Count 6.02 M/mm3 (4.2-5.4); Red Cell Distribution Width 16.2 % (11.5-14.5); White Blood Count 5.2 K/mm3 (4.5-10.0)
[2022-06-04 08:07] LABS: Hemoglobin A1C 5.4 % (<5.7)
[2022-06-04 08:10] LABS: Alanine Aminotransferase 17 U/L (6-35); Albumin Level 4.2 g/dL (3.5-5.1); Alkaline Phosphatase 73 U/L (38-126); Anion Gap 11 mmol/L (8-16); Aspartate Amino Transferase 21 U/L (14-36); Bilirubin,Total 0.7 mg/dL (0.2-1.3); Blood Urea Nitrogen 36 mg/dL (7-17); Calcium 8.9 mg/dL (8.4-10.2); Carbon Dioxide 26 mmol/L (22-30); Chloride 101 mmol/L (98-107); Cholesterol 162 mg/dL (0-200); Estimated Glomerular Filt Rate 48; Glucose 103 mg/dL (65-110); HDL Direct 48 mg/dL; Potassium 4.3 mmol/L (3.4-5.0); Sodium 138 mmol/L (137-145); Triglycerides 163 mg/dL (<150)
[2022-06-04 08:21] LABS: LDL Cholesterol Direct 66 mg/dL
[2022-06-04 08:30] LABS: Anisocytosis 1+ (NORMAL); Hypochromasia 1+ (NORMAL); Ovalocytes 1+ (NORMAL); Platelet Estimate Adequate (Adequate); Poikilocytosis 1+ (NORMAL)
[2022-06-04 08:39] LABS: Free T4 Free Thyroxine 1.37 ng/mL (0.78-2.19)
== END 2022-06-04 07:30 | disposition home or self-care (01) ==
LOC: ANHLAB 07:31
PROVIDERS: PCP Family Medicine; Visit Provider Family Medicine
DX: I10 Essential (primary) hypertension (principal); E03.9 Hypothyroidism, unspecified; E11.9 Type 2 diabetes mellitus without complications; E78.2 Mixed hyperlipidemia
CPT/HCPCS: 36415; 80053; 80061; 83036; 84439; 84443; 85025; 85055

== ENCOUNTER → 2022-08-19 10:15 | Outpatient (CLI) | payer MEDICARE, OTHER, SELFPAY ==
--- NOTE | ~2022-08-19 | XR_ITS ---
XR lumbar spine 2-3V DATE: 08/19/2022 10:32 INDICATION: Low back pain for several years. No injury. TECHNIQUE: AP, lateral, coned lateral lumbosacral views COMPARISON: 05/2020 lumbar spine FINDINGS: There is osteopenia. Mild dextroscoliosis of the lumbar spine. There is vertebroplasty at a stable moderate compression fracture deformity of T12. There are severe degenerative disc disease throughout the lumbar and lumbosacral spine including ishaan re loss of interspace height, degenerative spurring, with eburnation and vacuum phenomenon in particu lar at L3-4 and L4-5. No fracture or bone destruction is detected. The lumbar pedicles are intact. The sacroiliac joints appear normal. There is a very prominent amount of fecal material throughout the colon. Status post cholecystectomy. Catheter tubing the abdomen. IMPRESSION: Severe degenerative disc disease throughout the lumbar spine Mild dextro scoliosis Status post vertebroplasty at T12 compression fracture, stable since 05/29/2020 Reviewed, dictated and finalized at location A.
== END ==
PROVIDERS: PCP Family Medicine; Visit Provider Nurse Practitioner Family
DX: M51.36 Other intervertebral disc degeneration, lumbar region (principal)
CPT/HCPCS: 72100

== ENCOUNTER 2023-02-15 16:51 | Observation (INO) | payer MEDICARE, OTHER, SELFPAY ==
[2023-02-15] VITALS (39 sets, daily range): BP systolic 144–232; BP diastolic 60–133; PULSE 64–79; RESP 12–32; TEMP 36.1–36.4; O2SAT 95–100; BMI 40.3
--- NOTE | ~2023-02-15 | NM_ITS ---
EXAMINATION: NM candy stress w perfusion DATE: 02/16/2023 15:07 INDICATION: Chest pain TECHNIQUE: Rest images were obtained following intravenous administration of 9.8 mCi Tc99m tetrofosmi n (Myoview). The patient was infused intravenously with Lexiscan (Regadenoson). Then, 31.77 mCi Tc99m tetrofosmin (Myoview) was administered intravenously, and stress images were obtained. Data was gena nstructed into short axis and horizontal and vertical long axis SPECT images. Gated SPECT images were also obtained. COMPARISON: None. FINDINGS: There is no definite reversible or fixed perfusion abnormality to suggest ischemia or infar ction. There is normal left ventricular chamber size, wall motion and ejection fraction. Left ventr icular ejection fraction measures >70%. IMPRESSION: 1. Normal myocardial perfusion at rest and during stress. 2. Left ventricular ejection fraction measuring >70%. Reviewed, dictated and finalized at location A.
--- NOTE | ~2023-02-15 | XR_ITS ---
EXAMINATION: XR chest 2V Exam Date/Time: 02/15/2023 17:42 CDT HISTORY: cp CENTER OF CHEST FOR 1 DAY, HTN Comparison: 01/14/2022, 04/25/2021. 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 Cholecystectomy clips. Vertebr oplasty cement at T12. Lungs and pleura: Mild senescent change. Bibasilar scar/atelectasis. Cardiomediastinal silhouette: Stable. Other: No acute osseous or upper abdominal finding. IMPRESSION: No acute cardiopulmonary process. Reviewed, dictated and finalized at location K.
--- NOTE | 2023-02-15 16:53 | ECG_ITS ---
Measurements Intervals [place] Rate: 69 P: 45 WI: 165 QRS: -3 QRSD: 96 T: 4 QT: 369 QTc: 396 Interpretive Statements SINUS RHYTHM NORMAL ELECTROCARDIOGRAM COMPARED TO ECG 04/25/2021 10:46:41 NO SIGNIFICANT CHANGES Electronically Signed On 02-16-2023 7:03:18 CDT by Randy Medina M.D.
[2023-02-15 17:13] LABS: Basophils Percent Auto 0.8 % (0.2-1.2); Eosinophils Absolute Auto 0.1 K/mm3 (0-0.3); Eosinophils Percent Auto 2.5 % (0-4.4); Hematocrit 37.7 % (37.0-47.0); Hemoglobin 11.3 g/dL (12.0-15.0); Immature Granulocyte Absolute 0.01 K/mm3 (0.00-0.031); Immature Granulocyte Percent A 0.2 % (0-0.5); Immature Platelet Fraction Pct 3.1 % (0.9-11.2); Lymphocytes Absolute Auto 1.73 K/mm3 (0.9-3.2); Lymphocytes Percent Auto 33.3 % (18.3-44.2); Mean Corpuscular Hemoglobin 19.4 pg (26-34); Mean Corpuscular Volume 64.7 fl (80-100); Mean Platelet Volume 9.9 fl (7.4-10.4); Monocytes Absolute Auto 0.3 K/mm3 (0.1-0.6); Monocytes Percent Auto 5.4 % (2.6-8.5); Neutrophils Percent Auto 57.8 % (45.5-73.1); Platelet Count Result 163 k/mm3 (150-375); Red Blood Count 5.83 M/mm3 (4.2-5.4); Red Cell Distribution Width 17.2 % (11.5-14.5); White Blood Count 5.2 K/mm3 (4.5-10.0)
[2023-02-15 17:20] LABS: Alanine Aminotransferase 28 U/L (6-35); Albumin Level 4.6 g/dL (3.5-5.1); Alkaline Phosphatase 65 U/L (38-126); Anion Gap 6 mmol/L (8-16); Aspartate Amino Transferase 30 U/L (14-36); Bilirubin,Total 1.1 mg/dL (0.2-1.3); Blood Urea Nitrogen 19 mg/dL (7-17); Carbon Dioxide 29 mmol/L (22-30); Chloride 103 mmol/L (98-107); Estimated CRCL calculation 48 ml/min; Estimated Glomerular Filt Rate 54; Glucose 111 mg/dL (65-110); Lipase 58 U/L (23-300); Sodium 138 mmol/L (137-145)
[2023-02-15 17:23] LABS: INR 1.2; Microcytosis 2+ (NORMAL); Ovalocytes 2+ (NORMAL); Platelet Estimate Adequate (Adequate); Prothrombin Time 14.2 Seconds (11.1-14.7); Schistocytes None Seen (NORMAL)
[2023-02-15 17:31] LABS: Troponin I < 0.012 ng/mL (0.000-0.034)
--- NOTE | 2023-02-15 17:35 | ED.CHESTPAIN ---
HPI - Chest Pain General Chief Complaint: Chest Pain <Taran Olivera PA-C - Last Filed: 02/16/23 01:58> Stated Complaint: CP since yesterday <KAITLYN Winter Last Filed: 02/16/23 01:58> Time Seen by Provider: 02/15/23 17:11 <KAITLYN Winter Last Filed: 02/16/23 01:58> Source: patient <KAITLYN Winter Last Filed: 02/16/23 01:58> Mode of arrival: ambulatory <KAITLYN Winter Last Filed: 02/16/23 01:58> Limitations: no limitations <KAITLYN Winter Last Filed: 02/16/23 01:58> History of Present Illness HPI narrative: This is a 77-year-old female with PMH of HLD, HTN presents the ED with chief complaint of chest pain onset yesterday. Patient states that she had an episode of chest pain in the afternoon yesterday that lasted 30 minutes and resolved after she took 1 NTG. She states that she had a similar pain this morning and took another nitro with good relief. She again had the same symptoms this afternoon and had to take 2 nitros before her pain was resolved so she came to the ED for further evaluation. Patient reports the pain is in the right side of the chest and there is some associated right arm pain. As I interview her she tells me that the pain is completely resolved. Endorses shortness of breath when the pain comes on. Seems to be worse with exertion. States she was just laying down when the pain started. Reports that she was given nitroglycerin with prescription by her family doctor earlier this year when she was having some chest pain but has not had any kind of stress testing or angiography. Denies nausea, sweats, abdominal pain, leg swelling, fevers, chills. <KAITLYN Winter Last Filed: 02/16/23 01:58> Related Data Home Medications: Home Medications Medication Instructions Recorded Confirmed atorvastatin 10 mg tablet 10 mg PO DAILY 02/15/23 02/15/23 gabapentin 300 mg capsule 600 mg PO TID 02/15/23 02/15/23 levothyroxine 100 mcg tablet 100 mcg PO DAILY 02/15/23 02/15/23 metoprolol succinate 50 mg 50 mg PO DAILY 02/15/23 02/15/23 tablet,extended release 24 hr quetiapine 25 mg tablet 50 mg PO HS 02/15/23 02/15/23 valsartan 320 1 tablet PO DAILY 02/15/23 02/15/23 mg-hydrochlorothiazide 12.5 mg tablet <Taran Olivera PA-C - Last Filed: 02/16/23 01:58> Allergies/Adverse Reactions: Allergies Allergy/AdvReac Type Severity Reaction Status Date / Time No Known Allergies Allergy Verified 02/16/23 06:57 <Taran Olivera PA-C - Last Filed: 02/16/23 01:58> Review of Systems Review of Systems: CONSTITUTIONAL: Denies fever, chills, or sweats. EYES: Denies visual changes, redness, or discharge. ENT: Denies rhinorrhea, congestion, sore throat, or otalgia. CARDIOVASCULAR: See HPI RESPIRATORY: See HPI GASTROINTESTINAL: Denies abdominal pain, nausea, vomiting, or diarrhea. GENITOURINARY: Denies dysuria or hematuria. SKIN: Denies rash or itching. MUSCULOSKELETAL: Denies back pain, joint pain, or myalgia. NEUROLOGIC: Denies headache, numbness, dizziness, or weakness. PSYCHIATRIC: Denies anxiety or depression. <Taran Olivera PA-C - Last Filed: 02/16/23 01:58> [facility] Past Medical History Medical History: Medical History Abnormal finding on MRI of brain Acute deep vein thrombosis (DVT) of tibial vein of right lower extremity Acute renal insufficiency Anemia Anxiety Arthritis Benign essential HTN Breast cancer Bronchitis, not specified as acute or chronic Carpal tunnel syndrome Central retinal vein occlusion, left eye (~11/2019) Chest pain, atypical Cholecystectomy planned Chronic insomnia Communicating hydrocephalus Cough Dysuria Effusion, right knee Elevated fasting glucose Essential hypertension Falling episodes Fibroid tumor Flank pain Grief reaction HTN (hypertension) Hydrocephalus Hyperlipidemia, type IIb 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 to medical condition 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
--- NOTE | 2023-02-15 18:05 | ECG_ITS ---
Measurements Intervals [place] Rate: 68 P: 56 GA: 179 QRS: 2 QRSD: 98 T: 8 QT: 379 QTc: 405 Interpretive Statements SINUS RHYTHM NORMAL ELECTROCARDIOGRAM COMPARED TO ECG 02/15/2023 16:56:29 NO SIGNIFICANT CHANGES Electronically Signed On 02-16-2023 7:06:01 CDT by Randy Medina M.D.
[2023-02-15 19:03] LABS: D Dimer 0.86 ug/mL (<0.48)
[2023-02-15] MEDS: ASPIRIN 81 MG CHEWABLE TABLET 324 MG PO (19:13)
[2023-02-15] MEDS: FAMOTIDINE 20 MG/2 ML VIAL IV PUSH (19:15)
[2023-02-15] MEDS: LABETALOL HCL INJ 100 MG/20 ML VIAL 20 MG IV PUSH (19:52)
[2023-02-15 20:34] LABS: Troponin I 0.015 ng/mL (0.000-0.034)
--- NOTE | 2023-02-15 20:41 | PM.IMHP ---
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 Patient presents to the emergency room due to chest pain localized to the right side of her chest with radiation to her right arm pain started the day before and she took a nitro to went away, had pain again today in the morning took 1 nitro and he went away and pain repeated again in the afternoon took 1 nitro did not relieve and took a 2nd nitro at the time of my visit patient denied any chest discomfort, she has been her usual state of health up until this point, denies near-syncope or syncope, no lightheadedness, no dizziness, no cough, no nausea, no vomiting, no leg swelling, no orthopnea, no PND. Preliminary workup has been essentially nonrevealing. A chest x-ray was reported as: EXAMINATION:? XR chest 2V Exam Date/Time:? 02/15/2023 17:42 CDT HISTORY: cp CENTER OF CHEST FOR 1 DAY, HTN ? Comparison:? 01/14/2022, 04/25/2021. RESULT: Lines, tubes, and devices:? 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 Cholecystectomy clips. Vertebroplasty cement at T12. Lungs and pleura:? Mild senescent change. Bibasilar scar/atelectasis. Cardiomediastinal silhouette:? Stable. Other:? No acute osseous or upper abdominal finding. ? IMPRESSION: No acute cardiopulmonary process. Review of Systems Review of Systems: Right-sided chest pain with radiation to the right arm relieved with nitro Constitutional: Constitutional: Denies chills, Denies fatigue, Denies fever(s), Denies lethargy, Denies malaise, Denies night sweats and Denies weakness Eyes: Eyes: Denies change in vision ENT: Denies dysphagia, Denies vertigo, Denies dizziness and Denies odynophagia Cardiovascular: Cardiovascular: Reports chest pain, Denies leg edema, Denies lightheadedness, Reports radiating jaw, neck or arm pain (Right arm), Denies palpitations and Denies dyspnea Respiratory: Respiratory: Denies chest congestion, Denies cough, Denies pain on inspiration and Denies dyspnea Gastrointestinal: Gastrointestinal: Denies abdominal pain, Denies dyspepsia, Denies heartburn, Denies diarrhea, Denies nausea and Denies vomiting Genitourinary: Genitourinary: Denies dysuria Musculoskeletal: Musculoskeletal: Denies back pain, Denies myalgias, Denies joint swelling and Denies muscle weakness Integumentary/Breasts: Skin/Breast: Denies rash Neurologic: Denies focal weakness and Denies Sensory deficit (Neuro) Psychiatric: Psychiatric: Reports no additional psychiatric complaints and Reports as per HPI Endocrine: Endocrine: Denies cold intolerance, Denies fatigue, Denies flushing, Denies heat intolerance, Denies polyphagia, Denies polydipsia and Denies palpitations Hematologic/Lymphatic: Hematologic/Lymphatic: Reports no additional hematologic/lymphatic complaints and Reports as per HPI Allergic/Immunologic: Allergic/Immunologic: Reports no additional allergic/immunologic complaints and Reports as per HPI PMFSH Past Medical History Medical History Abnormal finding on MRI of brain Acute deep vein thrombosis (DVT) of tibial vein of right lower extremity Acute renal insufficiency Anemia Anxiety Arthritis Benign essential HTN Breast cancer Bronchitis, not specified as acute or chronic Carpal tunnel syndrome Central retinal vein occlusion, left eye (~11/2019) Chest pain, atypical Cholecystectomy planned Chronic insomnia Communicating hydrocephalus Cough Dysuria Effusion, right knee Elevated fasting glucose Essential hypertension Falling episodes Fibroid tumor Flank pain Grief reaction HTN (hypertension) Hydrocephalus Hyperlipidemia, type IIb 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 to medical condition 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
--- NOTE | 2023-02-15 22:17 | ADMGEN ---
This patient, Olga Bansal, was admitted to IMU Room 214-01. Patient/family oriented to hospital policies and general routines including ID bracelet, bed and alarms, visiting hours, pain management, procedures, bathroom and other care routines, personal items, smoking policy, room service/diet, and visiting hours. Information on how to activate the Rapid Response Team has been discussed. Patient/Family are encouraged to report perceived risks to care and to ask questions if they do not understand what they are told or what they should do.
[2023-02-15] MEDS: hydrALAZINE HCL 20 MG/ML VIAL 10 MG IV PUSH (23:11)
[2023-02-15] MEDS: CYCLOBENZAPRINE HCL 5 MG TABLET PO (23:12)
[2023-02-15] MEDS: GABAPENTIN 300 MG CAPSULE 600 MG PO (23:12)
[2023-02-15] MEDS: QUEtiapine FUMARATE 25 MG TABLET 50 MG PO (23:12)
[2023-02-15 23:43] LABS: Troponin I < 0.012 ng/mL (0.000-0.034)
[2023-02-16] VITALS (9 sets, daily range): BP systolic 133–155; BP diastolic 55–74; PULSE 68–81; RESP 16–20; TEMP 36.3–36.6; O2SAT 97–99
[2023-02-16] MEDS: GABAPENTIN 300 MG CAPSULE 600 MG PO ×2 (06:33→15:23)
[2023-02-16] MEDS: LEVOTHYROXINE SODIUM 100 MCG TABLET PO (06:33)
--- NOTE | 2023-02-16 09:24 | EST_ITS ---
Patient Info Name: Olga Bansal Age: 77 years : 1945 Gender: Female Ht: 64 in Wt: 235 lbs BSA: 2.25 m2 HR: 71 bpm BP: 139 / 63 mmHg Heart Rhythm: Sinus Rhythm Exam Date: 02/16/2023 12:47 PM Exam Location: [facility] Stress Patient Status: Inpatient Admit Date: 02/15/2023 Staff Ordering Physician: Veto Norman MD Attending Provider: Priya Rose MD Exercise Technologist: Neyda Ayoub RDCS Exercise Physician: Hilary Cortez Exam Type: CA stress candy w NM Study Info A regadenoson stress test was performed. Summary 1. Sinus rhythm, normal electrocardiogram. 2. No ST segment abnormality following Lexiscan injection. 3. None. 4. Clinically and electrocardiographically uneventful Lexiscan stress test. 5. Myocardial perfusion imaging study to be dictated by Radiology. Protocol: Lexiscan Stress ECG Details Stage: REST Duration (min): 1 min : 18 sec HR (bpm): 72 SBP (mmHg): 139 DBP (mmHg): 83 Stage: REST Duration (min): 1 min : 57 sec HR (bpm): 71 SBP (mmHg): 139 DBP (mmHg): 83 Stage: REST Duration (min): 2 min : 32 sec HR (bpm): 72 SBP (mmHg): 139 DBP (mmHg): 83 Stage: REST Duration (min): 6 min : 3 sec HR (bpm): 70 SBP (mmHg): 139 DBP (mmHg): 83 Stage: REST Duration (min): 13 min : 42 sec HR (bpm): 69 SBP (mmHg): 139 DBP (mmHg): 83 Stage: STAGE 1 Duration (min): 1 min : 0 sec HR (bpm): 80 SBP (mmHg): 139 DBP (mmHg): 83 Stage: RECOVERY Duration (min): 1 min : 0 sec HR (bpm): 90 SBP (mmHg): 139 DBP (mmHg): 83 Stage: RECOVERY Duration (min): 2 min : 0 sec HR (bpm): 97 SBP (mmHg): 152 DBP (mmHg): 55 Stage: RECOVERY Duration (min): 3 min : 0 sec HR (bpm): 95 SBP (mmHg): 196 DBP (mmHg): 67 Stage: RECOVERY Duration (min): 4 min : 0 sec HR (bpm): 90 SBP (mmHg): 196 DBP (mmHg): 67 Stage: RECOVERY Duration (min): 5 min : 0 sec HR (bpm): 90 SBP (mmHg): 202 DBP (mmHg): 86 Stage: RECOVERY Duration (min): 6 min : 0 sec HR (bpm): 88 SBP (mmHg): 202 DBP (mmHg): 86 Stage: RECOVERY Duration (min): 7 min : 0 sec HR (bpm): 83 SBP (mmHg): 202 DBP (mmHg): 86 Stage: RECOVERY Duration (min): 7 min : 5 sec HR (bpm): 85 SBP (mmHg): 202 DBP (mmHg): 86 Rest HR: 69 bpm Peak HR: 97 bpm Rest Sys BP: 139 mmHg Peak Sys BP: 202 mmHg Max Pred HR: 142 bpm % Max Pred HR: 68 % Target HR: 121 bpm Max RPP: 19,594 bpm*mmHg Termination Reason: Completed protocol Total Time: 1 min : 0 sec Rest Shepherd BP: 83 mmHg Peak Shepherd BP: 86 mmHg Total Dose: 0.4 mg Resting ECG Sinus rhythm, normal electrocardiogram. Stress ECG No ST segment abnormality following Lexiscan injection. Arrhythmias None. Report Signatures Electronically signed
[2023-02-16] MEDS: METOPROLOL SUCCINATE EXT REL 50 MG TABCR PO (09:31)
[2023-02-16] MEDS: CYCLOBENZAPRINE HCL 5 MG TABLET PO ×3 (09:31→17:18)
[2023-02-16] MEDS: VALSARTAN 160 MG TABLET 320 MG PO (09:31)
[2023-02-16] MEDS: hydroCHLOROthiazide 12.5 MG CAPSULE PO (09:31)
[2023-02-16] MEDS: ENOXAPARIN 40 MG/0.4 ML SYRINGE SUB-Q (09:37)
[2023-02-16 10:32] LABS: Iron 79 ug/dL (37-170)
[2023-02-16 10:41] LABS: Percent Iron Saturation 23 % (20-50)
[2023-02-16] MEDS: ACETAMINOPHEN 325 MG TABLET 650 MG PO (15:23)
--- NOTE | 2023-02-16 16:47 | PM.DS ---
DS: Admitting Diagnosis Discharge Date 02/16/23 Admitting Diagnosis Chest pain DS: Discharge Diagnosis Discharge Diagnosis (1) Chest pain: Code(s): R07.9 - Chest pain, unspecified Status: Acute (2) CKD (chronic kidney disease) stage 3, GFR 30-59 ml/min: Qualifiers: Chronic kidney disease stage 3 subtype: stage 3a (GFR 45-59) Qualified Code(s): N18.31 - Chronic kidney disease, stage 3a Code(s): N18.30 - Chronic kidney disease, stage 3 unspecified Status: Acute (3) Hypertension: Code(s): I10 - Essential (primary) hypertension Status: Acute (4) Anemia: Code(s): D64.9 - Anemia, unspecified Status: Acute DS: Summary Hospital Course Reason for hospitalization: 77yo female with CAD and HTN here for chest pain. Please see H&P for details. Hospital Course: Patient presents with complaints of chest pain that occurred at rest. She describes as a ?intense muscle spasm? but felt ?tight?. Pain radiated to the right arm. It lasted 30 minutes. His associated with shortness of breath. Pain was not pleuritic. She checks her blood pressure at home and runs about 150/80. She presented to the emergency room after a 2nd episode. EKG was normal. Troponin was negative x3. Chest x-ray was negative. Repeat EKG remained normal. White count and platelet count normal. Hemoglobin slightly low in [place] microcytosis but she does have underlying thalassemia. Iron studies were normal. PT and PTT were normal. D-dimer was 0.86. Wells criteria was low probability for PE. This is due to a history of DVT in a tibial vein. The YEARS criteria was negative PE. Age-adjusted D-dimer was slightly positive. She had a negative Homans sign. No risk factors for DVT. She denies calf pain or pedal edema. No recent travel. Patient's blood pressure was elevated on admission and did climbed to as high as 232/71. This might be contributing to her chest pain. Patient was admitted underwent Lexiscan stress test. There is no definitive reversible or fixed perfusion abnormalities. EF was 70%. She overall did well was able be discharged home on 02/16/2023. Norvasc was added to her medication list. Status at Discharge Cognitive/behavioral status at discharge: Stable Time Spent with Patient Time attestation: Total time spent providing and/or coordinating discharge services: 35 minutes Time spent: Greater than 30 minutes Exam Narrative: AF 97.3 133/66 72 16 99% ra Gen - NARD Chest - CTA bilaterally, nml RR CV - RRR S1/S2 Abd - Soft, NT/ND, Positive BS Ext - No pedal edema. negative Homans Psych - Nml mood and affect Skin - Warm and dry DS: Data Data Completed and Pending Labs on day of discharge: Labs from last 24 hours 02/15/23 02/15/23 02/15/23 23:09 23:09 20:06 WBC RBC Hgb Hct MCV MCH MCHC RDW Plt Count MPV Immature Gran % (Auto) Neut % (Auto) Lymph % (Auto) [place] % (Auto) Eos % (Auto) Baso % (Auto) Lymph # (Auto) [place] # (Auto) Eos # (Auto) Baso # (Auto) Abs Immat Gran (auto) Absolute Neuts (auto) Absolute Nucleated RBC Nucleated RBC % Platelet Estimate % Immature Plt Fraction Microcytosis Ovalocytes Schistocytes PT INR APTT D-Dimer Sodium Potassium Chloride Carbon Dioxide Anion Gap BUN Creatinine Estim Creat Clear Calc Estimated GFR Glucose Calcium Iron 79 TIBC 345 % Saturation 23 Ferritin 43.20 Total Bilirubin AST ALT Alkaline Phosphatase Troponin I < 0.012 D 0.015 D Total Protein Albumin Lipase 02/15/23 02/15/23 02/15/23 17:03 17:03 17:03 WBC RBC Hgb Hct MCV MCH MCHC RDW Plt Count MPV Immature Gran % (Auto) Neut % (Auto) Lymph % (Auto) [place] % (Auto) Eos % (Auto) Baso % (Auto) Lymph # (
== END 2023-02-16 17:52 | disposition home or self-care (01) ==
LOC: ANHED 21:24 → ANHIMU 02-16 02:01
PROVIDERS: Emergency Medicine; Admitting Provider Internal Medicine; Emergency Provider Physician Assistant; PCP Family Medicine; Visit Provider Internal Medicine
DX: R07.9 Chest pain, unspecified (principal); I12.9 Hypertensive chronic kidney disease with stage 1 through stage 4 chronic kidney disease, or unspecified chronic kidney disease; N18.30 Chronic kidney disease, stage 3 unspecified; D64.9 Anemia, unspecified; F41.9 Anxiety disorder, unspecified; M19.90 Unspecified osteoarthritis, unspecified site; G47.00 Insomnia, unspecified; G20 Parkinson's disease; E89.0 Postprocedural hypothyroidism; E78.5 Hyperlipidemia, unspecified; Z86.718 Personal history of other venous thrombosis and embolism; Z79.899 Other long term (current) drug therapy; Z82.49 Family history of ischemic heart disease and other diseases of the circulatory system; Z82.61 Family history of arthritis
CPT/HCPCS: 36415; 71046; 78452; 80053; 82728; 83540; 83550; 83690; 84484; 85025; 85055; 85380; 85610; 85730; 93005; 93017; 96372; 96374; 96375; 99285; A9270; A9502; G0378; J0360; J1650; J2785

== ENCOUNTER 2023-06-27 17:01 | Emergency (ER) | payer MEDICARE, OTHER, SELFPAY ==
--- NOTE | ~2023-06-27 | CT_ITS ---
CT of the Abdomen and Pelvis: Indication: Abdominal pain Technique: 2.5 mm axial scans were obtained through the abdomen and pelvis following intravenous adm inistration of 100 cc of Omnipaque 350. Dose reduction technique was used on this scan by utilizing a utomated exposure control and iterative reconstruction technique. The dose-length product (DLP) was 1 183.89 mGy-cm. COMPARISON: 06/07/2019 Findings: Scans through the lung bases are unremarkable. The liver, pancreas, and kidneys are within normal limits. Stable small bilateral adrenal nodules. St able borderline splenomegaly. Cholecystectomy clips are present. No evidence of aortic aneurysm. No lymphadenopathy. No bowel obstruction or bowel wall thickening. There is no evidence to suggest acute appendicitis. 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 Images through the pelvis were performed. Urinary bladder unremarkable. No adnexal mass seen. Patient is post hysterectomy. No ascites evident. Stable T12 compression fracture with vertebroplasty cement . Impression: No acute abnormality evident. Stable small bilateral adrenal nodules. Stable borderline splenomegaly. Stable T12 compression fracture with vertebroplasty cement. Reviewed, dictated and finalized at [facility]. Impression: No acute abnormality evident. Stable small bilateral adrenal nodules. Stable borderline splenomegaly. Stable T12 compression fracture with vertebroplasty cement.
[2023-06-27 17:33] VITALS: BP 154/64; PULSE 101; RESP 24; TEMP 36.2; O2SAT 100
--- NOTE | 2023-06-27 17:40 | ECG_ITS ---
Measurements Intervals [place] Rate: 100 P: 53 MS: 137 QRS: 5 QRSD: 85 T: 21 QT: 346 QTc: 447 Interpretive Statements SINUS TACHYCARDIA BORDERLINE ST-T WAVE ABNORMALITY- INFERIOR LEADS BASELINE ARTIFACT- I, II, III, AVR, AVL, AVF BORDERLINE ECG COMPARED TO ECG 02/15/2023 18:07:16 SINUS TACHYCARDIA NOW PRESENT Electronically Signed On 06-27-2023 18:39:42 CDT by Danny Valle D.O.
[2023-06-27 17:51] LABS: Basophils Percent Auto 0.5 % (0.2-1.2); Eosinophils Absolute Auto 0.1 K/mm3 (0-0.3); Eosinophils Percent Auto 1.3 % (0-4.4); Hematocrit 36.4 % (37.0-47.0); Hemoglobin 11.3 g/dL (12.0-15.0); Immature Granulocyte Absolute 0.02 K/mm3 (0.00-0.031); Immature Granulocyte Percent A 0.2 % (0-0.5); Lymphocytes Absolute Auto 1.71 K/mm3 (0.9-3.2); Lymphocytes Percent Auto 20.8 % (18.3-44.2); Mean Corpuscular Hemoglobin 19.7 pg (26-34); Mean Corpuscular Volume 63.4 fl (80-100); Mean Platelet Volume 10.2 fl (7.4-10.4); Monocytes Absolute Auto 0.5 K/mm3 (0.1-0.6); Monocytes Percent Auto 5.9 % (2.6-8.5); Neutrophils Absolute Auto 5.9 K/mm3 (1.3-6.7); Neutrophils Percent Auto 71.3 % (45.5-73.1); Platelet Count Result 205 k/mm3 (150-375); Red Blood Count 5.74 M/mm3 (4.2-5.4); Red Cell Distribution Width 15.7 % (11.5-14.5); White Blood Count 8.2 K/mm3 (4.5-10.0)
[2023-06-27 18:04] LABS: Alanine Aminotransferase 21 U/L (6-35); Albumin Level 3.9 g/dL (3.5-5.1); Alkaline Phosphatase 72 U/L (38-126); Anion Gap 9 mmol/L (8-16); Aspartate Amino Transferase 19 U/L (14-36); Bilirubin,Total 1.1 mg/dL (0.2-1.3); Blood Urea Nitrogen 15 mg/dL (7-17); Calcium 8.9 mg/dL (8.4-10.2); Carbon Dioxide 21 mmol/L (22-30); Chloride 104 mmol/L (98-107); Estimated CRCL calculation 47 ml/min; Estimated Glomerular Filt Rate 54; Glucose 158 mg/dL (65-110); Lipase 110 U/L (23-300); Potassium 3.7 mmol/L (3.4-5.0); Sodium 134 mmol/L (137-145)
--- NOTE | 2023-06-27 18:20 | ED.ABDPAIN ---
HPI - Abdominal Pain General Chief Complaint: Abdominal Pain Stated Complaint: ABD PAIN Time Seen by Provider: 06/27/23 18:19 History of Present Illness HPI narrative: Patient is a 77-year-old female with history of hypertension here with abdominal pain, diarrhea. Patient states that 3 days ago she woke up to feeling nauseous with some epigastric discomfort. She then noted multiple episodes of diarrhea each day since then. No blood in stool. She has had worsening abdominal pain which she describes as diffuse throughout the entire abdomen. She has had some associated nausea, no vomiting. She states that she additionally has had a chronic cough for about 2 months which is unchanged. No urinary changes, no fever chills. No associated chest pain or shortness of breath. No recent new foods, no known sick contacts. She has had prior gallbladder removal many years ago, still has her appendix. No recent antibiotic use. Related Data Home Medications Medication Instructions Recorded Confirmed gabapentin 300 mg capsule 600 mg PO TID 02/15/23 06/05/23 levothyroxine 100 mcg tablet 100 mcg PO DAILY 02/15/23 06/05/23 Allergies Allergy/AdvReac Type Severity Reaction Status Date / Time No Known Allergies Allergy Verified 06/27/23 18:49 Review of Systems Review of Systems: CONSTITUTIONAL: Denies fever, chills, or sweats. EYES: Denies visual changes, redness, or discharge. ENT: Denies rhinorrhea, congestion, sore throat, or otalgia. CARDIOVASCULAR: Denies chest pain, palpitations, or edema. RESPIRATORY: cough, no dyspnea. GASTROINTESTINAL: abdominal pain, nausea, diarrhea, no vomiting GENITOURINARY: Denies dysuria or hematuria. SKIN: Denies rash or itching. MUSCULOSKELETAL: Denies back pain, joint pain, or myalgia. NEUROLOGIC: Denies headache, numbness, or weakness. PSYCHIATRIC: Denies anxiety or depression. [facility] Past Medical History Medical History (Updated 06/27/23 @ 21:18 by Farrah Martinez MD) Abnormal finding on MRI of brain Acute deep vein thrombosis (DVT) of tibial vein of right lower extremity Acute renal insufficiency Anemia Anxiety Arthritis Benign essential HTN Breast cancer Bronchitis, not specified as acute or chronic Carpal tunnel syndrome Central retinal vein occlusion, left eye (~11/2019) Chest pain, atypical Cholecystectomy planned Chronic insomnia Communicating hydrocephalus Cough Dysuria Effusion, right knee Elevated fasting glucose Essential hypertension Falling episodes Fibroid tumor Flank pain Grief reaction HTN (hypertension) Hydrocephalus Hyperlipidemia, type IIb 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 to medical condition 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 Mid back pain on right side Multiple allergies Muscle strain Normal pressure hydrocephalus Osteoporotic compression fracture of spine with routine healing Other chronic pain Other iron deficiency anemias Other specified arthritis, multiple sites Other specified diabetes mellitus without complications Pain of right thumb Parkinson disease (~2018) Parkinson's disease Postprocedural hypothyroidism Primary osteoarthritis of first carpometacarpal joint of right hand Right groin pain Right wrist pain Sinobronchitis Spider bite Spinal stenosis Tenosynovitis, de Quervain Thalassemia minor Thoracic spine pain Urinary frequency Urinary tract infection Vitamin D deficiency Vomiting without nausea, intractable Surgical History Surgical History Cataract extraction status H/O partial thyroidectomy H/O vaginal hysterectomy Approx 2005 History of carpal tunnel release History of knee replacement Most recent was approx 2018. [address] Hassan SOCIAL WORK MSW (ventriculoperitoneal) shunt status Approx 2019, [facility] Neurology Family History Family History Mother Family history of suicide Hypertension Patient's mother is
[2023-06-27 18:26] LABS: Platelet Estimate Adequate (Adequate); Schistocytes None Seen (NORMAL)
[2023-06-27 18:27] LABS: Anisocytosis 2+ (NORMAL); Microcytosis 1+ (NORMAL)
[2023-06-27 18:40] VITALS: BP 129/72; PULSE 107; RESP 18; O2SAT 99
[2023-06-27 19:00] VITALS: BP 145/83; PULSE 97; RESP 14; O2SAT 97
[2023-06-27 19:28] LABS: Troponin I < 0.012 ng/mL (0.000-0.034)
[2023-06-27] MEDS: SODIUM CHLORIDE 0.9% IV 1,000 ML 999 ML IV CONT (19:52)
[2023-06-27 19:53] LABS: INR 1.1; Partial Thromboplastin Time 30.2 SECONDS (22.3-36.8); Prothrombin Time 14.3 Seconds (11.1-14.7)
[2023-06-27] MEDS: HYOSCYAMINE SULFATE 0.125 MG TABLET PO (19:53)
[2023-06-27 20:00] LABS: SARS-CoV-2 RNA PCR Negative (Negative)
[2023-06-27 21:26] LABS: Add Urine Microscopic? YES; Appearance Urine Clear (Clear); Bilirubin Urine Negative (Negative); Blood Urine Trace-intact (Negative); Color Urine Yellow (Yellow); Glucose Urine UA Negative (Negative); Ketones Urine Negative (Negative); Leukocyte Esterase Ur Negative LEU/UL (Negative); Nitrate Urine Negative (Negative); Protein Urine 1+ mg/dL (Negative); Urobilinogen Urine 0.2 mg/dL (<2.0)
[2023-06-27 21:32] LABS: RBC Urine None seen /hpf (0-2); WBC Urine None seen /hpf (0-3)
[2023-06-27 21:33] LABS: Bacteria Urine None seen /hpf
[2023-06-27 21:42] LABS: Squamous Epithelial Cell Urine Few /hpf (Few)
[2023-06-27 21:59] VITALS: BP 135/89; PULSE 78; RESP 18; O2SAT 98
== END 2023-06-27 22:01 | disposition home or self-care (01) ==
PROVIDERS: Emergency Medicine; Emergency Provider Student in an Organized Health Care Education/Training Program; PCP Family Medicine
DX: R10.9 Unspecified abdominal pain (principal); R19.7 Diarrhea, unspecified; Z20.822 Contact with and (suspected) exposure to COVID-19; I10 Essential (primary) hypertension; D50.8 Other iron deficiency anemias; E13.9 Other specified diabetes mellitus without complications; E55.9 Vitamin D deficiency, unspecified; E89.0 Postprocedural hypothyroidism; M19.90 Unspecified osteoarthritis, unspecified site; F51.04 Psychophysiologic insomnia; Z96.659 Presence of unspecified artificial knee joint; Z98.2 Presence of cerebrospinal fluid drainage device; Z87.440 Personal history of urinary (tract) infections; Z86.718 Personal history of other venous thrombosis and embolism; Z85.3 Personal history of malignant neoplasm of breast; Z98.49 Cataract extraction status, unspecified eye; Z90.710 Acquired absence of both cervix and uterus; R00.0 Tachycardia, unspecified; R94.31 Abnormal electrocardiogram [ECG] [EKG]; E27.9 Disorder of adrenal gland, unspecified
CPT/HCPCS: 36415; 74177; 80053; 81001; 83690; 84484; 85025; 85610; 85730; 87635; 93005; 99284; A9270; J7030; Q9967

== ENCOUNTER 2023-07-28 12:34 | Outpatient (CLI) | payer MEDICARE, OTHER, SELFPAY ==
--- NOTE | ~2023-07-28 | XR_ITS ---
EXAMINATION: XR chest 2V DATE: 07/28/2023 12:53 INDICATION: Cough. TECHNIQUE: Frontal and lateral views of the chest were obtained. COMPARISON: Chest 2 views 02/15/2023 FINDINGS: There is mild atelectasis in the lower lung zones. No pleural effusion or pneumothorax. The heart size is normal. Surgical clips in the right upper quadrant are likely from cholecystectomy. Th ere is a right-sided ventriculoperitoneal shunt. There is an old healed fracture of left clavicle. IMPRESSION: 1. Mild atelectasis in the lower lung zones. Reviewed, dictated and finalized at location E.
== END 2023-07-28 12:35 | disposition home or self-care (01) ==
PROVIDERS: PCP Family Medicine; Visit Provider Physician Assistant
DX: R05.9 Cough, unspecified (principal); R91.8 Other nonspecific abnormal finding of lung field
CPT/HCPCS: 71046

== ENCOUNTER 2024-01-07 11:37 | Emergency (ER) | payer MEDICARE, OTHER, SELFPAY ==
--- NOTE | ~2024-01-07 | XR_ITS ---
EXAMINATION: XR shoulder RT min 2V DATE: 01/07/2024 14:44 INDICATION: Right shoulder pain and limited range of motion post fall TECHNIQUE: AP internally and externally rotated, AP oblique externally rotated and transscapular Y vi ews of the right shoulder were obtained. COMPARISON: 06/12/2004 FINDINGS: Normal alignment. No fracture.Interval postoperative change of prior acromioplasty. Mild right acrom ioclavicular and glenohumeral osteoarthritis. New cystic change along the middle facet of the greater tuberosity which can be seen with chronic rotator cuff disease. Elevation the right hemidiaphragm. R ight lung is clear with no focal airspace opacities, pulmonary edema, pleural effusion or pneumothora x. Soft tissues are unremarkable. IMPRESSION: 1. Mild right glenohumeral and acromioclavicular osteoarthritis. 2. Cystic change along the middle facet of the greater tuberosity which could be seen with chronic ro tator cuff disease.. Reviewed, dictated and finalized at location L. IMPRESSION: 1. Mild right glenohumeral and acromioclavicular osteoarthritis. 2. Cystic change along the middle facet of the greater tuberosity which could b e seen with chronic rotator cuff disease..
--- NOTE | ~2024-01-07 | CT_ITS ---
EXAMINATION: CT thoracic spine wo con DATE: 01/07/2024 14:35 INDICATION: Thoracic back pain post fall TECHNIQUE: Computed tomography (CT) of the thoracic spine was performed without intravenous contrast. Automated exposure control and iterative reconstruction technique were employed. The dose-length pro duct was 1324.60 mGy-cm. COMPARISON: Thoracic spine MR dated 03/17/2020 and thoracic spine radiographs dated 01/04/2020 FINDINGS: Mild S-shaped scoliosis of the thoracolumbar spine with mild mid thoracic dextrocurvature and thoraco lumbar levocurvature. Chronic T12 compression fracture with prior vertebroplasty. There are bridging osteophytes at multiple levels throughout the thoracic spine consistent with diffuse idiopathic skele monica hyperostosis (DISH). Oblique coronally oriented fracture extending from the midportion of the sup erior endplate of T10 posteriorly and inferiorly to the posterior margin of the inferior endplate. Th ere is minimal posterior angulation of the anteroinferior portion of the vertebral body resulting in up to 3 mm separation of the fracture margins along the superior endplate. More anteriorly there is w idening of the disc space with continuation of the fracture across the anterior and right-sided bridg ing osteophytes, the former with up to 8 mm separation. No evident involvement of the posterior eleme nts. No other fractures identified. There is fusion across the anterior two thirds of the T10-T11 disc spa ce. Severe disc height loss with prominent degenerative endplate changes at C3-C4 through C6-C7, T1-T 2, T7-T8 and T12-L1. Moderate disc height loss at the remaining levels from T2-T3 through L2-L3. Ther e is mild central canal stenosis at a few levels in the mid to lower cervical spine resulting from po sterior disc osteophyte complexes. Minimal central canal stenosis at a few levels in the mid to lower thoracic spine resulting from small disc protrusions and/or small amount of ossification along the p osterior longitudinal ligament. There is multilevel thoracic facet osteoarthritis, severe at the uppe r thoracic spine with right-sided predominance and mild to moderate in the lower thoracic spine. This contributes to multilevel neural foraminal stenosis, moderate severity levels at the left side of th e cervical spine and on the right at T10-T11 and mild at many of the remaining levels. Respiratory motion in the visualized portions of the lungs which are otherwise clear. No pneumonia, p ulmonary edema or pleural effusion. 1.2 cm right renal cyst. There is a small hematoma and stranding surrounding the fractured T10 vertebral body and extending short distance cephalad to T8 and caudal t o T11. Paravertebral soft tissues are otherwise unremarkable. IMPRESSION: 1. Minimally angulated oblique coronal oriented fracture extending across the posterior [id number] body and anteriorly across bridging osteophytes spanning the anterior and widened disc space with con figuration suggesting a hyperextension injury. Dr. Arellano discussed these findings with Dr. Kecia mesa at 2:55 PM. 2. Severe cervical, thoracic and lumbar spondylosis. 3. Chronic T12 compression fracture with change of prior vertebroplasty. Reviewed, dictated and finalized at location L. IMPRESSION: 1. Minimally angulated oblique coronal oriented fracture extending across the p osterior [id number] body and anteriorly across bridging osteophytes spanning the anterior and widened disc space with configuration suggesting a hyperextens ion injury. Dr. Arellano discussed these findings with Dr. Haq at 2:55 PM. 2. Severe cervical, thoracic and lumbar spondylosis. 3. Chronic T12 compression fracture with change of prior vertebroplasty.
--- NOTE | ~2024-01-07 | CT_ITS ---
EXAMINATION: CT brain wo con DATE: 01/07/2024 15:53 INDICATION: Head injury TECHNIQUE: Computed tomography (CT) of the head was performed without intravenous contrast. Sagittal and coronal reconstructions were performed. The mA was adjusted according to patient size. Iterative reconstruction technique was employed. The dose-length product was 605.33 mGy-cm. COMPARISON: head CT dated 12/13/2019 FINDINGS: Right posterior roni hole with ventricular shunt catheter extending across the right parietal lobe an d into the left lateral ventricle with distal tip positioned along the lateral side of the body of th e left lateral ventricle. No fracture. No acute intracranial hemorrhage, acute infarction or abnormal extra axial fluid collection. There is mild scattered white matter hypoattenuation consistent with c hronic small vessel ischemic disease. Again seen is symmetric enlargement of the bodies of the later al ventricles which appear minimally decreased since the prior study but remain disproportionate to t he mild increased prominence of the sulci. No mass/mass effect. Changes of bilateral intraocular lens replacement. The orbits, paranasal sinuses and mastoid air cells are normal. Intracranial calcified cerebral atherosclerosis is noted. IMPRESSION: 1. No fracture or acute intracranial process. 2. Interval placement of a right parietal ventricular shunt which extends into the left lateral ventr icle with persistent but slightly decreased symmetric enlargement of the bodies of the lateral ventri cles relative to the sulci which could be related to central predominant atrophy or normal pressure h ydrocephalus. Reviewed, dictated and finalized at location L. IMPRESSION: 1. No fracture or acute intracranial process. 2. Interval placement of a right parietal ventricular shunt which extends into the left lateral ventricle with persistent but slightly decreased symmetric enl argement of the bodies of the lateral ventricles relative to the sulci which co uld be related to central predominant atrophy or normal pressure hydrocephalus.
--- NOTE | ~2024-01-07 | CT_ITS ---
EXAMINATION: CT cervical spine wo con DATE: 01/07/2024 15:53 INDICATION: Neck pain after trauma TECHNIQUE: Computed tomography (CT) of the cervical spine was performed without intravenous contrast. The dose-length product was 541 mGy-cm. Automated exposure control and iterative reconstruction tech nique were employed. COMPARISON: None FINDINGS: There is advanced degenerative disc disease at all cervical spine levels. Craniovertebral j unction is normal. Odontoid process is normal. No evidence for perched facet. There is degenerative a nterolisthesis at T2-3. There is advanced multilevel uncinate hypertrophy. There is a 5 mm right uppe r lobe nodule, image 340. No significant paraspinal soft tissue abnormality. There is a ventriculosto my catheter in the right neck. IMPRESSION: 1. No acute abnormality of the cervical spine. 2: Severe cervical spondylosis. 3: Right upper lobe nodule measuring 5 mm. Recommend follow-up low dose CT chest in 12 months. Reviewed, dictated and finalized at location A. IMPRESSION: 1. No acute abnormality of the cervical spine. 2: Severe cervical spondylosis. 3: Right upper lobe nodule measuring 5 mm. Recommend follow-up low dose CT ches t in 12 months.
[2024-01-07 11:51] VITALS: BP 146/84; PULSE 93; RESP 16; TEMP 36.2; O2SAT 99
--- NOTE | 2024-01-07 14:16 | ED.FALL ---
HPI - Fall General Chief Complaint: Fall <Sourav Haq APRN - Last Filed: 01/07/24 15:20> Stated Complaint: fall, back pain <Sourav Haq APRN - Last Filed: 01/07/24 15:20> Time Seen by Provider: 01/07/24 14:10 <Sourav Haq APRN - Last Filed: 01/07/24 15:20> Focused HPI: Raeann is a 78-year-old female patient presenting to the ER today with complaints of midthoracic back pain and right shoulder pain after tripping and the garden and falling up against a fence. She denies hitting her head or any loss of consciousness. Denies any neck pain. States she has a history of stress fractures in her back. General: Well-developed, morbidly obese, in no apparent distress Head: Normocephalic, atraumatic. Cardio: Regular rate and rhythm, s1 and s2 normal, no murmur appreciated. Resp: Clear to auscultation bilaterally, no rhonchi, rales, wheezing or rubs. Musculoskeletal: No deformity, mild tender to palpation over the midthoracic spine below the scapulas at bra line, tender to palpation over the entire right shoulder joint, sitting in a wheelchair Patient screened in triage and initial orders placed. Additional care and disposition to be based upon diagnostic testing and treatment. 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 Patient notes that prior to arrival she was in her garden when she tripped and fell over a piece of tree root and fell forward. She states that she had a fence which is about 1 ft in front of where she was standing and hyperextended her back. She felt immediate pop in her back. She notes continued pain in her midback. She also notes that she hurt her right shoulder attempting to brace herself. She has been able to ambulate since the incident, denies any numbness or weakness in her legs, no bowel or bladder incontinence, no saddle anesthesia. She notes that at rest she has good pain control but it worsens every time she tries to move or twist. She does have a history of a T12 fracture in the past which she did pain management and physical therapy for. She is unsure if she hit her head, did not lose consciousness. She does not take any blood thinners. <Farrah Martinez MD - Last Filed: 01/07/24 17:38> Related Data Home Medications: Home Medications Medication Instructions Recorded Confirmed levothyroxine 100 mcg tablet 100 mcg PO DAILY 02/15/23 08/31/23 <Sourav Haq APRN - Last Filed: 01/07/24 15:20> Allergies/Adverse Reactions: Allergies Allergy/AdvReac Type Severity Reaction Status Date / Time No Known Allergies Allergy Verified 08/31/23 10:40 <Sourav Haq APRN - Last Filed: 01/07/24 15:20> Review of Systems Review of Systems: All systems reviewed & are unremarkable except as noted in HPI and below <Farrah Martinez MD - Last Filed: 01/07/24 17:38> [facility] Past Medical History Medical History: Medical History Abnormal finding on MRI of brain Acute deep vein thrombosis (DVT) of tibial vein of right lower extremity Acute renal insufficiency Anemia Anxiety Arthritis Benign essential HTN Breast cancer Bronchitis, not specified as acute or chronic Carpal tunnel syndrome Central retinal vein occlusion, left eye (~11/2019) Chest pain, atypical Cholecystectomy planned Chronic insomnia Communicating hydrocephalus Cough Dysuria Effusion, right knee Elevated fasting glucose Essential hypertension Falling episodes Fibroid tumor Flank pain Grief reaction HTN (hypertension) Hydrocephalus Hyperlipidemia, type IIb 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
[2024-01-07 15:21] VITALS: BP 137/81; PULSE 73; RESP 18; O2SAT 99
[2024-01-07] MEDS: HYDROcodone/acetaminophen (*CRX) 5-325 MG TABLET 1 TAB PO (16:06)
[2024-01-07] MEDS: ONDANSETRON HCL ODT 4 MG TABLET PO (16:07)
[2024-01-07] MEDS: ONDANSETRON HCL ODT 4 MG TABLET (17:41)
[2024-01-07 18:36] VITALS: BP 136/75; PULSE 71; RESP 14; TEMP 36.7; O2SAT 98
== END 2024-01-07 18:37 | disposition home or self-care (01) ==
PROVIDERS: Emergency Provider Student in an Organized Health Care Education/Training Program; PCP Family Medicine
DX: S22.078A Other fracture of T9-T10 vertebra, initial encounter for closed fracture (principal); R91.1 Solitary pulmonary nodule; I10 Essential (primary) hypertension; E78.1 Pure hyperglyceridemia; G91.0 Communicating hydrocephalus; D50.9 Iron deficiency anemia, unspecified; M19.90 Unspecified osteoarthritis, unspecified site; G20.A1 Parkinson's disease without dyskinesia, without mention of fluctuations; E55.9 Vitamin D deficiency, unspecified; Z98.49 Cataract extraction status, unspecified eye; E89.0 Postprocedural hypothyroidism; Z96.659 Presence of unspecified artificial knee joint; Z98.2 Presence of cerebrospinal fluid drainage device; Z90.710 Acquired absence of both cervix and uterus; Z87.440 Personal history of urinary (tract) infections; Z86.718 Personal history of other venous thrombosis and embolism; M47.812 Spondylosis without myelopathy or radiculopathy, cervical region; M47.816 Spondylosis without myelopathy or radiculopathy, lumbar region; M47.814 Spondylosis without myelopathy or radiculopathy, thoracic region; M19.011 Primary osteoarthritis, right shoulder; M48.54XA Collapsed vertebra, not elsewhere classified, thoracic region, initial encounter for fracture; W01.198A Fall on same level from slipping, tripping and stumbling with subsequent striking against other object, initial encounter
CPT/HCPCS: 70450; 72125; 72128; 73030; 99284; A9270

== ENCOUNTER 2024-01-15 10:53 | Outpatient (CLI) | payer MEDICARE, OTHER, SELFPAY ==
--- NOTE | ~2024-01-15 | XR_ITS ---
XR thoracic spine 2V DATE: 01/15/2024 11:24 INDICATION: Burst fracture TECHNIQUE: AP, lateral standing views COMPARISON: 01/07/2024 CDT thoracic spine FINDINGS: Moderate dextroscoliosis of the thoracic spine. Diffuse osteopenia. Diffuse idiopathic skel etal hyperostosis. T10 fracture is demonstrated to much better advantage on 01/07/2024 CT thoracic spine examination. Burst fracture deformity vertebroplasty at T12. Status post cholecystectomy. Ventriculoperitoneal shunt catheter tubing overlies the right neck, chest and abdomen IMPRESSION: T10 fracture Burst fracture and vertebroplasty at T12 Diffuse hepatic skeletal hyperostosis Dextroscoliosis Reviewed, dictated and finalized at location B.
== END 2024-01-15 10:54 | disposition home or self-care (01) ==
PROVIDERS: PCP Family Medicine; Visit Provider Physician Assistant
DX: S22.071D Stable burst fracture of T9-T10 vertebra, subsequent encounter for fracture with routine healing (principal); X58.XXXD Exposure to other specified factors, subsequent encounter; M48.04 Spinal stenosis, thoracic region
CPT/HCPCS: 72070

== ENCOUNTER 2024-03-02 09:11 | Outpatient (CLI) | payer MEDICARE, OTHER, SELFPAY | END 2024-03-02 09:12 | disposition home or self-care (01) | PROVIDERS: PCP Family Medicine; Visit Provider Physician Assistant | DX: E07.9 Disorder of thyroid, unspecified (principal) | CPT/HCPCS: 36415; 84439; 84443 ==

== ENCOUNTER 2024-05-27 09:05 | Outpatient (CLI) | payer MEDICARE, OTHER, SELFPAY ==
[2024-05-27 09:54] LABS: Basophils Percent Auto 0.7 % (0.2-1.2); Eosinophils Absolute Auto 0.2 K/mm3 (0-0.3); Eosinophils Percent Auto 3.2 % (0-4.4); Hematocrit 38.7 % (37.0-47.0); Hemoglobin 11.2 g/dL (12.0-15.0); Immature Granulocyte Absolute 0.01 K/mm3 (0.00-0.031); Immature Granulocyte Percent A 0.2 % (0-0.5); Lymphocytes Absolute Auto 1.16 K/mm3 (0.9-3.2); Lymphocytes Percent Auto 20.5 % (18.3-44.2); Mean Corpuscular HGB Conc 28.9 g/dl (32-36); Mean Corpuscular Hemoglobin 18.9 pg (26-34); Mean Corpuscular Volume 65.2 fl (80-100); Mean Platelet Volume 10.4 fl (7.4-10.4); Monocytes Absolute Auto 0.3 K/mm3 (0.1-0.6); Monocytes Percent Auto 5.5 % (2.6-8.5); Neutrophils Percent Auto 69.9 % (45.5-73.1); Platelet Count Result 192 k/mm3 (150-375); Red Blood Count 5.94 M/mm3 (4.2-5.4); Red Cell Distribution Width 16.5 % (11.5-14.5); White Blood Count 5.7 K/mm3 (4.5-10.0)
[2024-05-27 10:02] LABS: Alanine Aminotransferase 16 U/L (6-35); Albumin Level 4.5 g/dL (3.5-5.1); Alkaline Phosphatase 55 U/L (38-126); Anion Gap 11 mmol/L (4-12); Aspartate Amino Transferase 22 U/L (14-36); Bilirubin,Total 0.9 mg/dL (0.2-1.3); Blood Urea Nitrogen 33 mg/dL (7-17); Carbon Dioxide 27 mmol/L (22-30); Chloride 101 mmol/L (98-107); Cholesterol 166 mg/dL (0-200); Estimated Glomerular Filt Rate 43; Glucose 128 mg/dL (65-110); HDL Direct 48 mg/dL; Potassium 4.4 mmol/L (3.4-5.0); Sodium 139 mmol/L (137-145); Triglycerides 154 mg/dL (<150)
[2024-05-27 10:14] LABS: LDL Cholesterol Direct 80 mg/dL
[2024-05-27 10:36] LABS: Thyroid Stimulating Hormone 0.873 uIU/mL (0.465-4.680)
[2024-05-27 10:41] LABS: Free T4 Free Thyroxine 1.56 ng/mL (0.78-2.19)
== END 2024-05-27 09:06 | disposition home or self-care (01) ==
PROVIDERS: PCP Family Medicine; Visit Provider Physician Assistant
DX: E07.9 Disorder of thyroid, unspecified (principal); D64.9 Anemia, unspecified; E78.2 Mixed hyperlipidemia; I12.9 Hypertensive chronic kidney disease with stage 1 through stage 4 chronic kidney disease, or unspecified chronic kidney disease; N18.30 Chronic kidney disease, stage 3 unspecified; M47.26 Other spondylosis with radiculopathy, lumbar region
CPT/HCPCS: 36415; 80053; 80061; 84439; 84443; 85025

== ENCOUNTER 2024-05-30 07:39 | Outpatient (CLI) | payer MEDICARE, OTHER, SELFPAY ==
[2024-05-30 09:05] LABS: Hemoglobin A1C 6.1 % (<5.7)
== END 2024-05-30 07:40 | disposition home or self-care (01) ==
PROVIDERS: PCP Family Medicine; Visit Provider Physician Assistant
DX: R73.9 Hyperglycemia, unspecified (principal)
CPT/HCPCS: 36415; 83036

== ENCOUNTER 2024-06-01 14:18 | Outpatient (CLI) | payer MEDICARE, OTHER, SELFPAY ==
--- NOTE | ~2024-06-01 | XR_ITS ---
XR shoulder RT min 2V Ordering provider: Vineet Ferraro MD History: . M25.511 - Pain in right shoulder . Comparison: January 07, 2024 FINDINGS: BONES: No acute fracture or dislocation. Degenerative changes in the area of the greater tuberosity. JOINT SPACES: The acromioclavicular joint is normal. The glenohumeral joint is normal. SOFT TISSUES: Normal. IMPRESSION: No acute osseous abnormality right shoulder. Degenerative changes in the area of the insertion of the supraspinatus tendon. Reviewed, dictated and finalized at location A.
== END 2024-06-01 14:19 | disposition home or self-care (01) ==
PROVIDERS: PCP Family Medicine; Visit Provider Orthopaedic Surgery
DX: M19.011 Primary osteoarthritis, right shoulder (principal)
CPT/HCPCS: 73030

== ENCOUNTER 2024-10-24 02:30 | Emergency (ER) | payer MEDICARE, OTHER, SELFPAY ==
--- NOTE | ~2024-10-24 | XR_ITS ---
Clinical Indication: Chest pain PA and lateral views of the chest: Comparison: 07/28/2023 Findings: The lungs are clear, without evidence of focal consolidation or pleural effusion. Cardiome diastinal silhouette is within normal limits. Bones and soft tissues are unremarkable. Impression: Normal chest. Reviewed, dictated and finalized at location . D SERVICE CONSULTANT Impression: Normal chest.
--- NOTE | 2024-10-24 02:32 | ECG_ITS ---
Test Date: 2024-10-24 02:38:47 Measurements Intervals [place] Rate: 72 P: 18 PA: 150 QRS: -11 QRSD: 97 T: -8 QT: 381 QTc: 418 Interpretive Statements SINUS RHYTHM No previous ECG available for comparison Electronically Signed On 10-24-2024 18:16:01 EQUIP MAINT ENG by Alexandro Rodriguez M.D.
[2024-10-24] MEDS: ASPIRIN 81 MG CHEWABLE TABLET 324 MG PO (02:59)
[2024-10-24 03:02] VITALS: BP 153/57; PULSE 63; RESP 16; TEMP 36.8; O2SAT 96
[2024-10-24 03:42] LABS: Basophils Percent Auto 0.7 % (0.2-1.2); Eosinophils Absolute Auto 0.1 K/mm3 (0-0.3); Hematocrit 35.3 % (37.0-47.0); Hemoglobin 10.6 g/dL (12.0-15.0); Immature Granulocyte Absolute 0.02 K/mm3 (0.00-0.031); Immature Granulocyte Percent A 0.3 % (0-0.5); Immature Platelet Fraction Pct 2.6 % (0.9-11.2); Lymphocytes Absolute Auto 1.95 K/mm3 (0.9-3.2); Lymphocytes Percent Auto 32.2 % (18.3-44.2); Mean Corpuscular Hemoglobin 19.1 pg (26-34); Mean Corpuscular Volume 63.5 fl (80-100); Monocytes Absolute Auto 0.3 K/mm3 (0.1-0.6); Monocytes Percent Auto 5.1 % (2.6-8.5); Neutrophils Absolute Auto 3.6 K/mm3 (1.3-6.7); Neutrophils Percent Auto 59.7 % (45.5-73.1); Platelet Count Result 173 k/mm3 (150-375); Red Blood Count 5.56 M/mm3 (4.2-5.4); Red Cell Distribution Width 15.9 % (11.5-14.5); White Blood Count 6.1 K/mm3 (4.5-10.0)
[2024-10-24 03:50] LABS: Alanine Aminotransferase 19 U/L (6-35); Albumin Level 4.2 g/dL (3.5-5.1); Alkaline Phosphatase 68 U/L (38-126); Anion Gap 2 mmol/L (4-12); Aspartate Amino Transferase 22 U/L (14-36); Bilirubin,Total 0.8 mg/dL (0.2-1.3); Blood Urea Nitrogen 24 mg/dL (7-17); Calcium 9.1 mg/dL (8.4-10.2); Carbon Dioxide 29 mmol/L (22-30); Chloride 108 mmol/L (98-107); Estimated CRCL calculation 46 ml/min; Estimated Glomerular Filt Rate 53; Glucose 124 mg/dL (65-110); Lipase 94 U/L (23-300); Potassium 4.1 mmol/L (3.4-5.0); Sodium 139 mmol/L (137-145)
[2024-10-24 03:52] LABS: Prothrombin Time 13.8 Seconds (11.1-14.7)
[2024-10-24 03:53] LABS: Partial Thromboplastin Time 31.7 Seconds (22.3-36.8)
[2024-10-24 03:57] VITALS: BP 152/67; PULSE 73; RESP 19; O2SAT 96
[2024-10-24 03:59] VITALS: PULSE 73
[2024-10-24 04:02] LABS: Troponin I < 0.012 ng/mL (0.000-0.034)
[2024-10-24 04:04] LABS: Platelet Estimate Adequate (Adequate)
[2024-10-24 04:05] LABS: Anisocytosis 1+; Hypochromasia 1+; Ovalocytes 1+; Poikilocytosis 1+; Schistocytes None Seen
--- NOTE | 2024-10-24 05:34 | ECG_ITS ---
Test Date: 2024-10-24 05:37:49 Measurements Intervals Rudyard Rate: 68 P: 43 NJ: 173 QRS: 0 QRSD: 98 T: 4 QT: 396 QTc: 423 Interpretive Statements SINUS RHYTHM Compared to ECG 10/24/2024 02:38:47 No significant changes Electronically Signed On 10-24-2024 18:15:16 CREDIT PORTFOLIO ADVISOR by Alexandro Rodriguez M.D.
--- NOTE | 2024-10-24 05:53 | ED_ITS ---
HPI - General Adult General Chief complaint: Chest Pain Stated complaint: chest pain Time Seen by Provider: 10/24/24 03:51 History of Present Illness HPI narrative: Patient 78-year-old female who presents emergency department with chief complaint of chest pain patient reports over the last day she has had several episodes of chest pain that she has taken sublingual nitro the patient reports that her pain is now resolved reports that she has had a stress test in the last year that was negative. Related Data Allergies Allergy/AdvReac Type Severity Reaction Status Date / Time No Known Allergies Allergy Verified 10/24/24 02:31 Review of Systems 2 Review of Systems: A 10 system review of systems was completed on the patient and is negative except for what is stated in the HPI. Nursing and ancillary documentation was reviewed. [facility]LY [facility] Past Medical History Medical History Elevated fasting glucose Vitamin D deficiency Urinary tract infection Urinary frequency Thoracic spine pain Tenosynovitis, de Quervain Spider bite Sinobronchitis Right wrist pain Right groin pain Primary osteoarthritis of first carpometacarpal joint of right hand Postprocedural hypothyroidism Parkinson's disease Pain of right thumb Other specified diabetes mellitus without complications Other specified arthritis, multiple sites Other iron deficiency anemias Other chronic pain Osteoporotic compression fracture of spine with routine healing Muscle strain Mid back pain on right side 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 Vomiting without nausea, intractable Hyperlipidemia, type IIb Grief reaction Flank pain Falling episodes Essential hypertension Effusion, right knee Dysuria Cough Communicating hydrocephalus Chest pain, atypical Bronchitis, not specified as acute or chronic Acute renal insufficiency Acute deep vein thrombosis (DVT) of tibial vein of right lower extremity Abnormal finding on MRI of brain Chronic insomnia Benign essential HTN Normal pressure hydrocephalus 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 to medical condition Central retinal vein occlusion, left eye (~11/2019) Carpal tunnel syndrome Cholecystectomy planned Fibroid tumor Hydrocephalus HTN (hypertension) Arthritis Anemia Multiple allergies Spinal stenosis Thalassemia minor Anxiety Parkinson disease (~2017) Surgical History Surgical History CHEMICAL WEIGHER (ventriculoperitoneal) shunt status Approx 2018, [facility] Neurology History of carpal tunnel release History of knee replacement Most recent was approx 2018. [address] Hassan Cataract extraction status H/O partial thyroidectomy H/O vaginal hysterectomy Approx 2005 Family History Family History Mother Family history of suicide Hypertension Patient's mother is Father Family history of emphysema Patient's father is Other Arthritis Social History Social History Social History: Smoking status: Never smoker Second hand tobacco smoke exposure: No Alcohol intake: current Alcohol use details: Occasionally Substance use: current Substance use type: marijuana Other substance usage details: medical marijuana that pt uses gummies. Lack of Transportation: No Lack of Food: Never True Current Housing: I Have Housing Concerned About Future Housing: No Difficulty Paying Gas/Electric Bills: No Difficulty Paying for Meds: No Currently Unemployed: No Education: Master's Degree or Higher Difficulty w/ Childcare or Family Care: No Living arrangements: with family Occupation/Education: retired Gender identity (if verbalized by the patient): Female Sexual Orientation (if Verbalized by the Patient): Straight or Heterosexual Spiritual care concerns: No Exam 2 Narrative: GENERAL: Well-appearing, well-nourished, and in no acute distress. HEAD: Normocephalic, atraumatic. EYES: PERRLA and EOMI. ENT: Nares clear, no rhinorrhea or epistaxis. Mucous membranes moist. NECK: Supple. CHEST: Clear to auscultation. No respiratory distress. HEART: Regular rate and rhythm. No murmur heard. Normal peripheral pulses. ABDOMEN: Soft, nontender, nondistended, normal active bowel sounds. EXTREMITIES: Normal range of motion. No edema. SKIN: Warm, dry, no rash. NEURO: No focal deficits. Alert and oriented x3. PSYCH: Normal mood and affect. Course Vital Signs Vital signs: Vital Signs Temperature 36.8 C 10/24/24 03:02 Pulse Rate 63 10/24/24 03:02 Respiratory Rate 16 10/24/24 03:02 Blood Pressure 153/57 H 10/24/24 03:02 Pulse Oximetry 96 10/24/24 03:02 Oxygen Delivery Room Air 10/24/24 03:02 Temperature 36.8 C 10/24/24 03:02 Pulse Rate 63 10/24/24 06:09 Respiratory Rate 15 10/24/24 06:09 Blood Pressure 131/60 10/24/24 06:09 Pulse Oximetry 97 10/24/24 06:09 Oxygen Delivery Room Air 10/24/24 03:02 Medical Decision Making MDM Narrative Medical decision making narrative: Differential diagnosis includes ACS, noncardiac chest pain, atypical chest pain EKG showed no acute ischemic changes 0 hour and 3 hour troponins were negative CBC and CMP showed no acute abnormality Chest x-ray showed no focal infiltrate Vital Signs Vital Signs: Vital Signs Temperature 36.8 C 10/24/24 03:02 Pulse Rate 63 10/24/24 03:02 Respiratory Rate 16 10/24/24 03:02 Blood Pressure 153/57 H 10/24/24 03:02 Pulse Oximetry 96 10/24/24 03:02 Oxygen Delivery Room Air 10/24/24 03:02 Temperature 36.8 C 10/24/24 03:02 Pulse Rate 63 10/24/24 06:09 Respiratory Rate 15 10/24/24 06:09 Blood Pressure 131/60 10/24/24 06:09 Pulse Oximetry 97 10/24/24 06:09 Oxygen Delivery Room Air 10/24/24 03:02 Lab Data 10/24/24 02:54 10/24/24 02:54 Labs: Lab Results 10/24/24 10/24/24 Range/Units 02:54 05:40 WBC 6.1 (4.5-10.0) K/mm3 RBC 5.56 H (4.2-5.4) M/mm3 Hgb 10.6 L (12.0-15.0) g/dL Hct 35.3 L (37.0-47.0) % MCV 63.5 L (80-100) fl MCH 19.1 L (26-34) pg MCHC 30.0 L (32-36) g/dl RDW 15.9 H (11.5-14.5) % Plt Count 173 (150-375) k/mm3 MPV 10.0 (7.4-10.4) fl Immature Gran % (Auto) 0.3 (0-0.5) % Neut % (Auto) 59.7 (45.5-73.1) % Lymph % (Auto) 32.2 (18.3-44.2) % Hudson % (Auto) 5.1 (2.6-8.5) % Eos % (Auto) 2.0 (0-4.4) % Baso % (Auto) 0.7 (0.2-1.2) % Lymph # (Auto) 1.95 (0.9-3.2) K/mm3 Hudson # (Auto) 0.3 (0.1-0.6) K/mm3 Eos # (Auto) 0.1 (0-0.3) K/mm3 Baso # (Auto) 0.0 (0.0-0.1) K/mm3 Abs Immat Gran (auto) 0.02 (0.00-0.031) K/mm3 Absolute Neuts (auto) 3.6 (1.3-6.7) K/mm3 Absolute Nucleated RBC 0.000 (0.0-0.012) K/mm3 Nucleated RBC % 0.0 (0.0-0.2) % Platelet Estimate Adequate (Adequate) % Immature Plt Fraction 2.6 (0.9-11.2) % Hypochromasia 1+ Poikilocytosis 1+ Anisocytosis 1+ Ovalocytes 1+ Schistocytes None seen PT 13.8 (11.1-14.7) Seconds INR 1.0 APTT 31.7 (22.3-36.8) Seconds Sodium 139 (137-145) mmol/L Potassium 4.1 (3.4-5.0) mmol/L Chloride 108 H (98-107) mmol/L Carbon Dioxide 29 (22-30) mmol/L Anion Gap 2 L (4-12) mmol/L BUN 24 H (7-17) mg/dL Creatinine 1.00 (0.7-1.0) mg/dL Estim Creat Clear Calc 46 ml/min Estimated GFR 53 L (59 - ) Glucose 124 H (65-110) mg/dL Calcium 9.1 (8.4-10.2) mg/dL Total Bilirubin 0.8 (0.2-1.3) mg/dL AST 22 (14-36) U/L ALT 19 (6-35) U/L Alkaline Phosphatase 68 (38-126) U/L Troponin I < 0.012 < 0.012 (0.000-0.034) ng/mL Total Protein 7.0 (6.3-8.2) g/dL Albumin 4.2 (3.5-5.1) g/dL Lipase 94 (23-300) U/L Discharge Plan Discharge Clinical Impression: Atypical chest pain Patient Disposition: Home, Self-Care Condition: Stable Instructions: Antibiotic Form, Chest Pain (ED) Patient Language: Czech Prescriptions: No Action Movantik 25 mg tablet 25 mg PO QAM Qty: 30 0RF Rx Instructions: must be taken on empty stomach; no food 1 hr after or 2-3 hrs before dose nitroglycerin 0.4 mg tablet, sublingual 0.4 mg sublingual Q5M PRN (Reason: chest pain) Qty: 90 0RF Rx Instructions: do not exceed 3 doses per episode hydrocodone-acetaminophen 5-325 mg tablet 1 tablet PO Q6H PRN (Reason: pain) Qty: 60 0RF cyclobenzaprine 5 mg tablet See Rx Instructions .ROUTE .COMPLEX Qty: 60 0RF Dose Instruction: TAKE 1 TABLET BY MOUTH THREE TIMES DAILY Rx Instructions: TAKE 1 TABLET BY MOUTH THREE TIMES DAILY albuterol sulfate [Ventolin HFA] 90 mcg/actuation HFA aerosol inhaler See Rx Instructions .ROUTE .COMPLEX Qty: 18 1RF Dose Instruction: INHALE 1 PUFF BY MOUTH EVERY 4 HOURS NEEDED FOR SHORTNESS OF BREATH OR WHEEZING Rx Instructions: INHALE 1 PUFF BY MOUTH EVERY 4 HOURS NEEDED FOR SHORTNESS OF BREATH OR WHEEZING metoprolol succinate 50 mg tablet extended release 24 hr See Rx Instructions .ROUTE .COMPLEX Qty: 90 1RF Dose Instruction: Take 1 tablet by mouth once daily Rx Instructions: Take 1 tablet by mouth once daily gabapentin 300 mg capsule See Rx Instructions .ROUTE .COMPLEX Qty: 540 0RF Dose Instruction: TAKE 2 CAPSULES BY MOUTH THREE TIMES DAILY Rx Instructions: TAKE 2 CAPSULES BY MOUTH THREE TIMES DAILY Breztri Aerosphere 160-9-4.8 mcg/actuation HFA aerosol inhaler 2 inh inhalation BID Qty: 10.7 0RF valsartan-hydrochlorothiazide 320-12.5 mg tablet See Rx Instructions .ROUTE .COMPLEX Qty: 180 0RF Dose Instruction: Take 1 tablet by mouth once daily Rx Instructions: Take 1 tablet by mouth once daily ibandronate 150 mg tablet See Rx Instructions .ROUTE .COMPLEX Qty: 4 2RF Dose Instruction: TAKE 1 TABLET BY MOUTH ONCE EVERY MONTH Rx Instructions: TAKE 1 TABLET BY MOUTH ONCE EVERY MONTH montelukast 10 mg tablet See Rx Instructions .ROUTE .COMPLEX Qty: 90 1RF Dose Instruction: TAKE 1 TABLET BY MOUTH ONCE DAILY AT BEDTIME Rx Instructions: TAKE 1 TABLET BY MOUTH ONCE DAILY AT BEDTIME quetiapine 25 mg tablet See Rx Instructions .ROUTE .COMPLEX Qty: 90 0RF Dose Instruction: TAKE 1 TABLET BY MOUTH AT BEDTIME Rx Instructions: TAKE 1 TABLET BY MOUTH AT BEDTIME amlodipine 5 mg tablet See Rx Instructions .ROUTE .COMPLEX Qty: 90 0RF Dose Instruction: Take 1 tablet by mouth once daily Rx Instructions: Take 1 tablet by mouth once daily levothyroxine 100 mcg tablet 100 mcg PO DAILY Qty: 90 1RF omeprazole 40 mg capsule,delayed release(DR/EC) 40 mg PO DAILY Qty: 90 1RF Rx Instructions: Take 1 tablet daily on empty stomach after visualized food, before meal atorvastatin 10 mg tablet See Rx Instructions .ROUTE .COMPLEX Qty: 100 1RF Dose Instruction: Take 1 tablet by mouth once daily Rx Instructions: Take 1 tablet by mouth once daily Follow-up/Referrals: Sabrina Ruffin MD [Primary Care Provider] - Time of Disposition: 06:51
[2024-10-24 06:09] VITALS: BP 131/60; PULSE 63; RESP 15; O2SAT 97
--- NOTE | 2024-10-24 06:12 | PC.NURSE ---
3 hour troponin drawn and sent after 3 hour EKG was completed. Lab panel still says ordered and not received, called lab to check on status of sample, they state they will check and call the ED back
[2024-10-24 06:35] LABS: Troponin I < 0.012 ng/mL (0.000-0.034)
[2024-10-24 07:06] VITALS: BP 135/62; PULSE 72; RESP 18; O2SAT 98
--- OUTSIDE RECORDS SUMMARY | 2024-10-31 03:49 | XMS_ITS | Encounter Summary ---
Author Organization [facility] Address [address] [place] [address] Phone Care Team Providers Care Medium Cycle Salesperson Name Role Phone Rodolfo Mantilla MD Unavailable Sabrina Ruffin MD Primary Care Provider Encounter Details Date Type Department Care Team (Late st Contact Info) Description 07/06/2024 Telephone [facility] Neurosurgery [address] [facility] [address] [place] [address] Vineet Mcclain, INCENDIARY POWDER MIXER [address] [place] [address] Social History Tobacco Use Types Packs/Day Years Used Date Smoking Tobacco: Former Cigarettes Q uit: 07/27/1970 Smokeless Tobacco: Never Alcohol Use Standard Drinks/Week Comments Yes 1 (1 standard drink = 0.6 oz pur e alcohol) AUDIT-C Answer Date Recorded Q1: How often do you have a drink containing alc ohol? Never 07/30/2022 Average Number of Drinks Not on file 022 Q3: How often do you have si x or more drinks on one occasion? 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 Gender Identity Not on file Sexual Orientation Not on file Occupation Industry Job Start Date Job End Date retired Not on file Not on file Not on file documented as of this encounter Miscellaneous Notes * Telephone Encounter - Sisi Fine CMA - 07/06/2024 12:40 PM CDT Recall has been placed to schedule a 2 year f/u with CT head WO * Telephone Encounter - Sisi Fine CMA - 07/06/2024 12:40 PM CDT ----- Message from Vineet Mcclain NP sent at 07/04/2024 11:58 AM CDT ----- 2 year f/u with CT head WO documented in this encounter Plan of Treatment Not on file documented as of this encounter Visit Diagnoses Not on filedocumented in this encounter Care Teams Medium Cycle Salesperson Relationship Specialty Start Date End Date Sabrina Ruffin MD [address] [facility] [address] [facility] [address] [place] [address] PCP - General Family Medicine 12/31/20 Rodolfo Mantilla MD [address] [place] [address] Consulting Physician Neurology 12/21/19 documented as of this encounter
--- OUTSIDE RECORDS SUMMARY | 2024-10-31 03:49 | XMS_ITS | Encounter Summary ---
Author Organization [facility] Address [address] [place] [address] Phone Care Team Providers Care Metallurgy Laboratory Technician Name Role Phone Rodolfo Mantilla MD Unavailable Sabrian Ruffin MD Primary Care Provider Reason for Referral * MRI/CAT/PET Scan (Routine) - Authorized Specialty Diagnoses / Procedures Referred By Contac t Referred To Contact Radiology Diagnoses Ventriculopleural shunt status NPH (normal pressure hydrocephalus) (HCC) Procedures CT Head WO Contrast Vineet Mcclain NP [address] [place] [address] Phone: tel: fax: [address] [phone] Referral ID Status Reason Start Date Expiration Date V isits Requested Visits Authorized [id number] Authorized 07/04/2024 08/03/2025 1 1 Encounter Details Date Type Department Care Team (Late st Contact Info) Description 07/04/2024 10:45 AM CDT Office Visit [facility] Neurosurgery [address] [facility] 6th [place] [address] [place] [id number] Vineet Mcclain NP [address] [place] [address] NPH (normal pressure hydrocephalus) (HCC) (Primary Dx); Ventriculopleural shunt status Social History Tobacco Use Types Packs/Day Years [...] on file 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 Gender Identity Not on file Sexual Orientation Not on file Occupation Industry Job Start Date Job End Date retired Not on file Not on file Not on file documented as of this encounter Last Filed Vital Signs Vital Sign Reading Time Taken Comments Blood Pressure 110/68 07/04/2024 11:27 AM CDT Pulse 68 07/04/2024 11:27 AM CDT Temperature - - Respiratory Rate - - Oxygen Saturation - - Inhaled Oxygen Concentration - - Weight 102.1 kg (225 lb) 07/04/2024 11:27 AM CDT Height 163.8 cm (5' 4.5 ) 07/04/2024 11:27 AM CD T Body Mass Index 38.02 07/04/2024 11:27 AM CDT documented in this encounter Progress Notes * Vineet Mcclain, ASPHALT PAVING FOREMAN - 07/04/2024 10:45 AM CDT Images from the original note were not included. RETURN VISIT Subjective HISTORY OF PRESENT ILLNESS Olga Bansal is a 77 y.o. 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 Perez.She presents today with no new complaints and overall has been doing very well since her prior visit. Previous headaches have now resolved, and were thought to be related to an illness and coughing at the time. She reports a fall in december, tripped in her garden, with resultant fractured T10 - seen externally for this. Otherwise her gait has been stable, no progression of memory difficulties or incontinence. Her strata valve was double checked today with manual interrogated and found to be at a setting of 1.5, no adjustments made. JAYA 06/2023: Her gait abnormalities, urinary incontinence, and memory loss have all improved drastically with shunting. She rarely has issues with urinary incontinence. She still has some residual issues with balance requiring her to use a cane with walking but overall remains improved and without frequent falls. She has daily frontal dull headaches with occasional stabbing pains that improve with Tylenol. No associated symptoms of nausea or light/sound sensitivity. These started about six months ago and have remained stable. Her left eye vision has some distorti ons after a bursted blood vessel injury. She denies recent falls, new gait abnormalities, memory loss, nausea/vomiting, weakness, numbness, dizziness, seizures, visual changes, or bowel incontinence. Olga Bansal is a 77 y.o. female who presents for follow up on normal pressure hydrocephalus status post right parietal ventriculoperitoneal shunt. Overall, she has responded well to shunting and I feel her symptoms are at their best. The potential for some gait improvements with turning her shunt down was discussed but this is not the best option as she previously had symptoms of overdrainageat a setting of 1.0 previously. Her shunt was checked with a manual interrogator and found to be atthe expected setting of 1.5, no adjustments were made at this time. Given her new headaches I had the patient undergo a head CT. Given that this this is normal, I offered a referral to neurology which the patient refused at this time. She will follow up with her PCP for workup. I would like to see her back in one year with no new imaging. She was instructed to reach out to us sooner with any new or worsening symptoms. VITAL SIGNS There were no vitals taken for this visit. ALLERGIES She is allergic to celebrex [celecoxib] and sulfa (sulfonamide antibiotics). MEDICATIONS Current Outpatient Medications: acetaminophen (TYLENOL) 325 mg tablet, Take 2 tablets (650 mg total) by mouth every 4 (four) hours as needed for pain (Patient not taking: Reported on 07/02/2023), Disp: 30 tablet, Rfl: albuterol HFA (PROVENTIL HFA,VENTOLIN HFA,PROAIR HFA) 90 mcg/actuation inhaler, INHALE 1 PUFF BY MOUTH EVERY 4 HOURS NEEDED FOR SHORTNESS OF BREATH OR WHEEZING, Disp: , Rfl: amLODIPine (NORVASC) 5 mg tablet, Take 1 tablet (5 mg total) by mouth daily, Disp: , Rfl: atorvastatin (LIPITOR) 10 mg tablet, Take 10 mg by mouth nightly, Disp: , Rfl: benzonatate (TESSALON) 100 mg capsule, TAKE 2 CAPSULES BY MOUTH THREE TIMES DAILY NEEDED FOR COUGH, Disp: , Rfl: cephalexin (KEFLEX) 500 mg capsule, TAKE 1 CAPSULE BY MOUTH EVERY 12 HOURS FOR 10 DAYS, Disp: , Rfl: cyclobenzaprine (FLEXERIL) 5 mg tablet, Take 1 tablet (5 mg total) by mouth 3 (three) times a day, Disp: , Rfl: dicyclomine (BENTYL) 10 mg capsule, TAKE 1 CAPSULE BY MOUTH THREE TIMES DAILY NEEDED FOR ABDOMINAL PAIN, Disp: , Rfl: fluticasone propionate (FLONASE) 50 mcg/actuation nasal spray, Administer 1 spray into each nostrildaily (Patient not taking: No sig reported), Disp: , Rfl: gabapentin (NEURONTIN) 300 mg capsule, TAKE 2 CAPSULES BY MOUTH THREE TIMES DAILY, Disp: 180 capsule, Rfl: 0 guaiFENesin-codeine (GUAITUSS AC) liquid 100-10 mg/5 mL, TAKE 5 ML BY MOUTH EVERY 6 HOURS, Disp: , Rfl: hydroCHLOROthiazide (HYDRODIURIL) 25 mg tablet, Take 25 mg by mouth daily (Patient not taking: Reported on 07/02/2023), Disp: , Rfl: HYDROcodone-acetaminophen (NORCO) 5-325 mg per tablet, Take 1 tablet by mouth every 8 (eight) hoursas needed (Patient not taking: Reported on 06/05/2022), Disp: , Rfl: ibuprofen (ADVIL,MOTRIN) 400 mg tablet, ONE TABLET BY MOUTH EVERY 6 HOURS NEEDED FOR PAIN OR FEVER (Patient not taking: Reported on 07/02/2023), Disp: , Rfl: levothyroxine (SYNTHROID, LEVOTHROID) 100 mcg tablet, Take 100 mcg by mouth daily., Disp: , Rfl: 5 methocarbamoL (ROBAXIN) 500 mg tablet, Take 500 mg by mouth 2 (two) times a day (Patient not taking: Reported on 07/02/2023), Disp: , Rfl: metoprolol XL (TOPROL-XL) 50 mg 24 hr tablet, Take 50 mg by mouth daily., Disp: , Rfl: morphine ER (MS CONTIN) 15 mg 12 hr tablet, Take 15 mg by mouth 2 (two) times a day (Patient not taking: Reported on 06/05/2022), Disp: , Rfl: nitroglycerin (NITROSTAT) 0.4 mg SL tablet, 0.4 mg, Disp: , Rfl: QUEtiapine (SEROquel) 25 mg tablet, Take 25 mg by mouth daily, Disp: , Rfl: valsartan (DIOVAN) 160 mg tablet, Take 160 mg by mouth daily (Patient not taking: Reported on 07/02/2023), Disp: , Rfl: valsartan-hydrochlorothiazide (DIOVAN-HCT) 320-12.5 mg per tablet, Take 1 tablet by mouth daily, Disp: , Rfl: Objective PHYSICAL EXAM General: Alert, cooperative in NAD Respiratory: Normal respiratory effort and chest wall movement with respiration Psychologic: appropriate affect, pleasant Neurologic: Mental Status:alert & oriented X 3 PERRL, EOM, FS, TML No drift Full strength to extremity Sensation intact Dodd's negative, no clonus Station and Gait: walks without device within exam room. Antalgic gait Romberg: Negative REVIEW OF IMAGING N/A Assessment/Plan PLAN Normal pressure hydrocephalus status post RECYCLABLE MATERIALS SORTER shunt, strata 1.5 placed in 2019 - no adjustments made to her shunt at this time, found to be at a setting of 1.5 - patient requests 2 year follow up as opposed to 1 year, we will arrange this with a repeat head CT without contrast at that time for routine follow up - patient was aware to notify office sooner in the case if any new or worsening symptoms Vineet Mcclain NP documented in this encounter Plan of Treatment Scheduled Orders Name Type Priority Associated Diagnoses Orde r Schedule CT Head WO Contrast Imaging Schedule Bharathi Wilkins Routine (OP Routine) Ventriculopleural shunt status NPH (normal pressure hydrocephalus) (CMS/HCC) (HCC) Expected: 07/04/2026, Expires: 10/03/2026 documented as of this encounter Visit Diagnoses Diagnosis NPH (normal pressure hydrocephalus) (HCC)- Primary Idiopathic normal pressure hydrocephalus (INPH) Ventriculopleural shunt status documented in this encounter Historical Medications * This list may reflect changes made after this encounter. omeprazole (PriLOSEC) 40 mg capsule TAKE 1 CAPSULE BY MOUTH ONCE DAILY ON EMPTY STOMACH BEFORE MEAL 06/03/2024 montelukast (SINGULAIR) 10 mg tablet 05/06/2024 ibandronate (BONIVA) 150 mg tablet 04/30/2024 added in this encounter Care Teams Metallurgy Laboratory Technician Relationship Specialty Start Date End Date Sabrina Ruffin MD [address] [place] [address] PCP - General Family Medicine 12/31/20 Rodolfo Mantilla MD [address] [place] [address] Consulting Physician Neurology 12/21/19 documented as of this encounter
--- OUTSIDE RECORDS SUMMARY | 2024-10-31 03:49 | XMS_ITS | Clinical Summary ---
Author Organization [facility] Address [address] [place] [address] Care Team Providers Care Customer Care Associate Name Role Phone Rodolfo Mantilla MD Unavailable Sabrina Ruffin MD Primary Care Provider Allergies Active Allergy Reactions Criticality Noted Date Comments Celecoxib Nausea only Low 04/15/2018 Sulfa (Sulfonamide Antibiotics) Other (See comments),Unknown Low 10/13/2013 Reaction: Medications metoprolol XL (TOPROL-XL) 50 mg 24 hr tablet Take 50 mg by mouth daily. Active levothyroxine (SYNTHROID, LEVOTHROID) 100 mcg tablet Take 100 mcg by mouth daily. 5 8 Active morphine ER (MS CONTIN) 15 mg 12 hr tablet Take 15 mg by mouth 2 (two) times a day Active valsartan (DIOVAN) 160 mg tablet Take 160 mg by mouth daily Active acetaminophen (TYLENOL) 325 mg tabletIndicatio ns:Pain Take 2 tablets (650 mg total) by mouth every 4 (four) hours as needed for pain 30 tablet 0 Active Additional Information Patient not taking.Reported on 07/02/2023 methocarbamoL (ROBAXIN) 500 mg tablet Take 500 mg by mouth 2 (two) times a day 1 Active atorvastatin (LIPITOR) 10 mg tablet Take 10 mg by mouth nightly 2 Active fluticasone propionate (FLONASE) 50 mcg/actuation nasal spray Administer 1 spray into each nostril daily 2 Active HYDROcodone-linwood taminophen (NORCO) 5-325 mg per tablet Take 1 tablet by mouth every 8 (eight) hours as needed 2 Active QUEtiapine (SEROquel) 25 mg tablet Take 25 mg by mouth daily 2 Active valsartan-hydro chlorothiazide (DIOVAN-HCT) 320-12.5 mg per tablet Take 1 tablet by mouth daily 2 Active nitroglycerin (NITROSTAT) 0.4 mg SL tablet 0.4 mg 2 Active hydroCHLOROthia zide (HYDRODIURIL) 25 mg tablet Take 25 mg by mouth daily 2 Active ibuprofen (ADVIL,MOTRIN) 400 mg tablet ONE TABLET BY MOUTH EVERY 6 HOURS NEEDED FOR PAIN OR FEVER 2 Active albuterol HFA (PROVENTIL HFA,VENTOLIN HFA,PROAIR HFA) 90 mcg/actuation inhaler INHALE 1 PUFF BY MOUTH EVERY 4 HOURS NEEDED FOR SHORTNESS OF BREATH OR WHEEZING 3 Active amLODIPine (NORVASC) 5 mg tablet Take 1 tablet (5 mg total) by mouth daily 3 Active benzonatate (TESSALON) 100 mg capsule TAKE 2 CAPSULES BY MOUTH THREE TIMES DAILY NEEDED FOR COUGH 3 Active cephalexin (KEFLEX) 500 mg capsule TAKE 1 CAPSULE BY MOUTH EVERY 12 HOURS FOR 10 DAYS 3 Active guaiFENesin-cod eine (GUAITUSS AC) liquid 100-10 mg/5 mL TAKE 5 ML BY MOUTH EVERY 6 HOURS 3 Active cyclobenzaprine (FLEXERIL) 5 mg tablet Take 1 tablet (5 mg total) by mouth 3 (three) times a day 3 Active dicyclomine (BENTYL) 10 mg capsule TAKE 1 CAPSULE BY MOUTH THREE TIMES DAILY NEEDED FOR ABDOMINAL PAIN 3 Active gabapentin (NEURONTIN) 300 mg capsule TAKE 2 CAPSULES BY MOUTH THREE TIMES DAILY 180 capsule 3 Active ibandronate (BONIVA) 150 mg tablet 4 Active montelukast (SINGULAIR) 10 mg tablet 4 Active omeprazole (PriLOSEC) 40 mg capsule TAKE 1 CAPSULE BY MOUTH ONCE DAILY ON EMPTY STOMACH BEFORE MEAL 4 Active Active Problems Problem Noted Date Diagnosed Date Ventriculopleural shunt status 06/02/2022 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 to medical condition 05/09/2020 NPH (normal pressure hydrocephalus) 12/21/2019 Anxiety and depression 05/24/2019 Parkinsonism 11/24/2018 Assessment & Plan (05/11/2020 11:46 PM CDT): Ms. Alex is a 74 y/o woman with gait difficulties and falls as well as imaging findings concerning for NPH. She has features of Parkinsonism on exam, including asymmetric rigidity and bradykinesia with postural instability, though no tremor. Other symptoms include urge incontinence, constipation (better since stopping oxycodone), insomnia, low mood and mild cognitive changes. 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 The most likely diagnosis at this time is idiopathic Parkinson disease, though other diseases including MSA and PSP (with early postural instability, lack of tremor) and NPH are a possibility as well. Our concern for NPH is relatively low at this time given her parkinsonism and lack of characteristic magnetic gait however, she has met with Dr. Tierney and has a plan to have a large volume spinal tap performed in less than one month. We will start PT. She has some issues with swallowing but would like to hold off on MBS for now. At this point, she may have had some response to carbi/levo but this is difficult to discern for sure--she initially thought she had clear improvement but now is less sure. We will continue to increase the dose since nausea seems to have largely resolved with domperidone and she is only having to take this once daily. She is having trouble with sleep and taking Tylenol PM and we will switch to trazodone. She is depressed and mildly anxious and failed citalopram, had side effects from duloxetine and is managed on very low dose venlafaxine ER. We will attempt to increase that dose. Plan: 1. Carbidopa/levodopa: Try to push slowly up to 4 tabs tid. If nausea is a bigger issue, she will let us know and we will increase domperidone back to tid dosing. 2. Increase venlafaxine as directed. 3. Start trazodone for sleep. 4. Continue intensive exercise. 4. Go ahead with large volume lumbar drain. 5. Start PT and we will send her an rx. 6. Consider swallow study. 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 Atypical features include early falling, early dementia and urinary incontinence. Her brain MRI from 2018 also demonstrated ventriculomegaly with some atrophy and an Peter's Index of 0.36. She had a good levodopa trail over the past year with taking 900 mg daily. On this dose she had improvement of balance and was no longer falling as much, though she still felt off balance. She had no freezing of gait. She had shuffling and festination which can be present in both NPH and IPD. She did not have a dramatic benefit for her bradykinesia from levodopa and continued to have urinary urgency. Of note she also had significant depression which can lead to psychomotor slowing. At this point it think it is prudent to go ahead and do a lumbar drain placement with serial PT examination for gait and balance. I would also recommend a repeat NPT today to see if she has had any progression of her thinking problems. We will also repeat a MiniBest Test. She will continue her current dose of levodopa and we will consider increasing the dose of levodopa. Assessment & Plan (09/16/2019 12:58 PM FARMER AND GRAZIER): Ms. Alex is a 73 y/o woman presenting for evaluation of gait difficulties and falls as well as imaging findings concerning for NPH. She has features of Parkinsonism on exam, including asymmetric rigidity and bradykinesia with postural instability, though no tremor. Other symptoms include urge incontinence, constipation (better since stopping oxycodone), and mild cognitive changes. 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 The most likely diagnosis at this time is idiopathic Parkinson disease, though other diseases including MSA and PSP (with early postural instability, lack of tremor) and NPH are a possibility as well. Our concern for NPH is relatively low at this time given her parkinsonism and lack of characteristic magnetic gait although if she does not respond to levodopa, we would still consider doing large volume LP/drain and we discussed this again today. At this point, she may have had some response to carbi/levo but this is difficult to discern since she also started aggressive PT She is walking better and on exam and thinks she is steadier on her feet with no recent falls We will continue to increase the dose although she notes some nausea. I asked her to take her domperidone in the AM 30-45 minutes before the first dose of levodopa. She is depressed and mildly anxious but we tried to stop citalopram in favor of duloxetine and this caused worsened depression so she would like to stay with her current dose of citalopram. Plan: 1. Carbidopa/levodopa: Try to push slowly up to 3 tabs tid. If nausea is a bigger issue, she will let us know and we will order domperidone. 2. Same citalopram. Same domperidone but take first dose 30-45 min before levodopa. 3. Continue intensive exercise. 4. May still consider lumbar drain depending on response to CD/LD. Assessment & Plan (05/24/2019 4:10 PM CDT): Assessment: Ms. Alex is a 73 y/o woman presenting for evaluation of gait difficulties and falls as well as imaging findings concerning for NPH. She has features of Parkinsonism on exam, including asymmetric rigidity and bradykinesia with postural instability, though no tremor. Other symptoms include urge incontinence, constipation (better since stopping oxycodone), and mild cognitive changes. 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 The most likely diagnosis at this time is idiopathic Parkinson disease, though other diseases including MSA and PSP (with early postural instability, lack of tremor) and NPH are a possibility as well. My concern for NPH is relatively low at this time given her parkinsonism and lack of characteristic magnetic gait although if she does not respond to levodopa, we would still consider doing large volume LP/drain and we discussed this again today. At this point, she may have had some response to carbi/levo but this is difficult to discern since she also started aggressive PT She is walking better and on exam, I found dexterity to be substantially improved. We will continue to increase the dose although she notes some nausea if she doesn't take doses with food. We discussed this and if it gets worse, we will add domperidone before we increase further. She is depressed and mildly anxious. We will taper and stop citalopram and instead try duloxetine, which may also help with her orthopedic, neuropathic and stenosis pain. I gave her info on youtube channel exercises and asked that she continue her aggressive exercise regimen. Plan: 1. Carbidopa/levodopa: Try to push slowly up to 3 tabs tid. If nausea is a bigger issue, she will let us know and we will order domperidone. 2. Taper and stop citalopram, start duloxetine as directed. 3. Continue intensive exercise. 4. Gave info on [employer] youtube channel. 5. May still consider lumbar drain depending on response to CD/LD. Assessment & Plan (11/24/2018 12:07 PM FARMER AND GRAZIER): Assessment: Ms. Alex is a 72y/o woman presenting for evaluation of gait difficulties and falls as well as imaging findings concerning for NPH. She has features of Parkinsonism on exam, including asymetric rigidity and bradykinesia with significant postural instability, though no tremor. Other symptoms include urge incontinence, constipation (potentially related to opiate use), and cognitive changes (though currently very difficult to sort out if this is organic due to chronic opiate use). 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 The most likely diagnosis at this time is idiopathic Parkinson disease, though other diseases including MSA and PSP (with early postural instability, lack of tremor) and NPH are a possibility as well. My concern for NPH is relatively low at this time given her parkinsonism and lack of characteristic magnetic gait. At this time, will proceed with a levodopa trial for 6 weeks to see if her symptoms improve at a reasonable dose. If they do not, at that time could consider a lumbar drain to assess for gait improvement but would otherwise avoid this if she responds to levodopa as a Parkinson's/Parkinson's plus diagnosis is more likely. Plan: 1. Carbidopa/levodopa trial: start at 0.5 tabs TID and increase by 0.5 tabs weekly until at 3 tabs TID. Call after 6 weeks to discuss how she is doing. 2. Will defer lumbar drain trial at this time until after levodopa trial. 3. Recommended daily exercise and continued working with PT on balance. 4. Return in 6mos with Shruthi Rivero, [address] Mantilla. Call with questions/problems. 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[facility]) 04/22/20 17 Pain of hand 08/10/2013 Immunizations Name Administration Dates Next Due Influenza, Quadrivalent, Hig h Dose, Preservative Free, Intrr 07/11/2020 Influenza, Trivalent, High D ose, Split, Preservative Free, Intramuscular 08/16/2018,08/17/2017 Influenza, Trivalent, IM (MDV) 08/09/2014 Influenza, Trivalent, Preservative Free, Intramu scular 07/27/2013 Influenza, Unspecified 07/26/2019 Pneumococcal Conjugate PCV 13 08/17/2017 Pneumococcal Polysaccharide PPV23 06/26/2010 Tdap 12/16/2010 ZOSTER LIVE 08/09/2014 Surgical History Surgery Date Site/Laterality Comments CHOLECYSTECTOMY HYSTERECTOMY KNEE ARTHROSCOPY bilat. knee replacement THYROIDECTOMY, PARTIAL CARPAL TUNNEL RELEASE bilat. REMOVE VENA CAVA FILTER 05/21/2018 N/A LUMBAR PUNCTURE WO INJECTION , DIAGNOSTIC 07/24/2020 N/A REPLACEMENT TOTAL KNEE Bilateral Medical History Medical History Date Comments Anemia Thalassemia minor Arthritis Blood clot associated with vein wall inflammatio n Cataract Depression Diabetes mellitus (HCC) History of transfusion Hypertension Thyroid disease hypothyroidism Osteopenia PONV (postoperative nausea and vomiting) Family History Medical History Relation Name Comments Heart disease Brother Heart disease Father Hypertension Mother NPH Sister Kelsi shunt placed 1y r ago with improvement in gait Diabetes Son Early Son Anesthesia problems Neg Hx Relation Name Status Comments Brother Father Mother Sister Kelsi Alive Son Social History Tobacco Use Types Packs/Day Years Used Date Smoking Tobacco: Former Cigarettes Q uit: 07/27/1970 Smokeless Tobacco: Never Tobacco Cessation:Counseling Given: No Alcohol Use Standard Drinks/Week Comments Yes 1 [...] on file Legal Sex Female 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 Gender Identity Not on file Sexual Orientation Not on file Occupation Industry Job Start Date Job End Date retired Not on file Not on file Not on file Obstetrics History Last Filed Vital Signs Vital Sign Reading Time Taken Comments Blood Pressure 110/68 07/04/2024 11:27 AM CDT Pulse 68 07/04/2024 11:27 AM CDT Temperature 36.5 ??C (97.7 ??F) 07/28/2020 2:00 PM CD T Respiratory Rate 20 07/28/2020 2:00 PM CDT Oxygen Saturation 96% 08/29/2021 11:15 AM CDT Inhaled Oxygen Concentration - - Weight 102.1 kg (225 lb) 07/04/2024 11:27 AM CDT Height 163.8 cm (5' 4.5 ) 07/04/2024 11:27 AM CD T Body Mass Index 38.02 07/04/2024 11:27 AM CDT Plan of Treatment Health Maintenance Due Date Last Done Comments Hepatitis C Screening 1945 Osteoporosis Screening-Bone Density Scan 1945 Hepatitis B Screening 1962 Well Visit 65+ 2009 Zoster Vaccine (2 of 3) 10/04/2014 08/09/2014 DTaP/Tdap/Td Vaccine (2 - Td or Tdap) 12/16/2020 12/16/2010 Depression Screening 07/23/2021 07/23/2020 Fall Risk Assessment 07/28/2021 07/28/2020 Influenza Vaccine (#1) 2024 0, 07/26/2019, 08/16/2018, Additional history exists Colon Cancer Screening-CT Colonography Discontinued 07/27/2012 Colon Cancer Screening-Colonoscopy Discontinued 07/27/2012 Colon Cancer Screening-DNA Stool Discontinued 07/27/20 12 Colon Cancer Screening-Sigmoidoscopy Discontinued 07/27/2012 Colon Cancer Screening-FIT Discontinued 05/05/2017, Colon Cancer Screening-FOBT Discontinued 05/05/2017, 1 Colorectal Cancer Screening Discontinued Pneumococcal vaccine 65+ Completed 08/17/2017, 10/2009 Medical Devices Implanted Type Area Basin Tender Device Identifier Shelf Expiration Date Model / Serial / Lot Medtronic Inc 65906 Nitesh Antibiotic Kit Catheter Sterile Latex Free - [id number] Implanted:Qty: 1 on 07/27/2020 by Leobardo Perez MD at [facility] Right: Head Med[employer]onic Inc 12/19/2021 [id number] / / [id number] Medtronic [employer] Inc X [id number] Strata Ii Csf Programmable Flow Control Ball Spring Mechanism - [id number] Implanted:Qty: 1 on 07/27/2020 by Leobardo Perez MD at [facility] Right: Head [employer]onic Inc 11/19/2022 [id number] / / [id number] Procedures Procedure Name Priority Date/Time Associated Diagnosis Comments OCCULT BLOOD, FECAL (FIT) STAT 05/05/2017 7:12 PM CDT COLONOSCOPY 07/27/2012 12:00 AM CDT from Last 3 Months or Most Recently Relevant to Health Maintenance Results * (ABNORMAL) Occult blood, fecal non neoplasm screening (05/05/2017 7:12 PM CDT) Occult blood, fecal Positive(A) Negative [facility] ([place]) Collection date , feces [id number] [facility] ([place]) Collection time , feces 1911 [facility] ([place]) Stool 05/05/2017 7:12 PM CDT 05/05/2017 7:14 PM CDT Jeremiah Brown Jr., MD LAB BODY FLUIDS AN D STOOLS ORDERABLES Final Result [facility] ([place]) 1 [facility] [place] [address] * COLONOSCOPY (07/27/2012 12:00 AM CDT) Anatomical Region Laterality Modality Other Narrative 07/27/2012 12:00 AM CDT Ordered by an unspecified provider. Procedure Note Provider, MD Clifford - 07/27/2012 12:00 AM CDT PROCEDURE REPORT Patient: JONNIE ALEX Account: [id number] Room No: : 1945 Patient Type: SDS Attend.: Christopher Grant M.D. Admit Date: 07/27/2012 Dict.: Christopher Juanita, M.D. Disch. Date: NAME OF PROCEDURE: Colonoscopy. DATE: 07/27/12. HISTORY: 66-year-old female presents for screening colonoscopy. PHYSICAL EXAMINATION: Morbidly obese female. Lungs are clear.Cardiovascular exam is unremarkable. PROCEDURE: Colonoscopy was attempted with the [employer] video endoscope.She was premedicated by anesthesia. On digital exam, she has grade 2 to 3hemorrhoids. We inserted the endoscope and advanced it. We did not that she hassigmoid diverticula. We got the scope to the hepatic flexure, but because of herbody habitus, we were not able to see the right side of the colon. The colon otherwise was well prepped and visualized. I could find no evidence of inflammation or neoplasia anywhere through the length of the bowel. The patient tolerated the procedure without difficulty. POSTOPERATIVE DIAGNOSES: 1. Sigmoid diverticulosis. 2. Hemorrhoidal disease. 3. Nonvisualized right colon. PLAN: Barium enema. Christopher Grant M.D. DR/ TD: 07/27/2012 12:04 CC: Dr. Olesya Morse Authenticated by Christopher Grant MD On 07/29/2012 08:16:52 AM Historical Provider ENDOSCOPY PROCEDURES Ashley l Result from Last 3 Months or Most Recently Relevant to Health Maintenance Insurance MEDICARE [facility] MEDICARE [facility] MEDICARE [facility] Advance Directives For more information, please contact: [phone] * Full Code (Latest Code Status on File) Date Activated Date Inactivated Comments 07/23/2020 3:27 PM 07/28/2020 7:16 PM Care Teams Customer Care Associate Relationship Specialty Start Date End Date Sabrina Ruffin MD [address] [facility] [address] [place] [address] PCP - General Family Medicine 12/31/20 Rodolfo Mantilla MD [address] [place] [address] Consulting Physician Neurology 12/21/19
--- OUTSIDE RECORDS SUMMARY | 2024-10-31 03:49 | XMS_ITS | Referral Summary ---
Author Organization [facility] Address [address] [place] [address] Care Team Providers Care Food Adviser Name Role Phone Rodolfo Mantilla MD Unavailable [...] study. 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 Assessment & Plan (09/16/2019 12:58 PM MANAGER OF SALES): Ms. Alex is a 73 y/o woman [...] CD/LD. Assessment & Plan (11/24/2018 12:07 PM MANAGER OF SALES): Assessment: Ms. Alex is a 72y/o woman [...] 06/04/2017 Anemia 05/15/2017 Infection of prosthetic joint ([facility]) 04/22/20 17 Pain of hand 08/10/2013 Immunizations Name Administration Dates Next Due Influenza, Quadrivalent, Hig h Dose, Preservative Free, Intrr 07/11/2020 Influenza, Trivalent, High D ose, Split, Preservative Free, Intramuscular 08/16/2018,08/17/2017 Influenza, Trivalent, IM (MDV) 08/09/2014 Influenza, Trivalent, Preservative Free, Intramu scular 07/27/2013 Influenza, Unspecified 07/26/2019 Pneumococcal Conjugate PCV 13 08/17/2017 Pneumococcal Polysaccharide PPV23 06/26/2010 Tdap 12/16/2010 ZOSTER LIVE 08/09/2014 Social History Tobacco Use Types Packs/Day Years [...] Legal Sex 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 Right: Head Med[employer]onic Inc 12/19/2021 [id number] / / [id number] Medtronic [employer] Inc X 26963 Strata Ii Csf Programmable Flow Control Ball Spring Mechanism - [id number] Implanted:Qty: 1 on 07/27/2020 by Leobardo Perez MD at [facility] Right: Head Med[employer]onic Inc 11/19/2022 [id number] / / [id number] Procedures Procedure Name Priority Date/Time Associated Diagnosis Comments OCCULT BLOOD, FECAL (FIT) STAT 05/05/2017 7:12 PM CDT COLONOSCOPY 07/27/2012 12:00 AM CDT from Last 3 Months or Most Recently Relevant to Health Maintenance Results * (ABNORMAL) Occult blood, fecal non neoplasm screening (05/05/2017 7:12 PM CDT) Occult blood, fecal Positive(A) Negative [facility] ([place]) Collection date 1, feces [id number] [facility] ([place]) Collection time 1, feces 1911 [facility] ([place]) Stool 05/05/2017 7:12 PM CDT 05/05/2017 7:14 PM CDT us Jeremiah Brown Jr., MD LAB BODY FLUIDS AN D STOOLS ORDERABLES Final Result [facility] ([place]) 1 [facility] Department [place] [address] * COLONOSCOPY (07/27/2012 12:00 AM CDT) Anatomical Region Laterality Modality Other Narrative 07/27/2012 12:00 AM CDT Ordered by an unspecified provider. Procedure Note ProviderClifford MD - 07/27/2012 12:00 AM CDT PROCEDURE REPORT Patient: JONNIE ALEX. Account: [id number] Room No: : 1945 Patient Type: SDS Attend.: Christopher Grant M.D. Admit Date: 07/27/2012 Dict.: Christopher Grant M.D. Disch. Date: NAME OF PROCEDURE: Colonoscopy. DATE: 07/27/12. HISTORY: 66-year-old female presents for screening colonoscopy. PHYSICAL EXAMINATION: Morbidly obese female. Lungs are clear.Cardiovascular exam is unremarkable. PROCEDURE: Colonoscopy was attempted with the [employer] video endoscope.She was premedicated by anesthesia. On [...] Recently Relevant to Health Maintenance Insurance MEDICARE [facility] MEDICARE [facility] MEDICARE [employer] [facility] Advance Directives For more information, please contact: [phone] * Full Code (Latest Code Status on File) Date Activated Date Inactivated Comments 07/23/2020 3:27 PM 07/28/2020 7:16 PM Care Teams Food Adviser Relationship Specialty Start Date End Date Sabrina Ruffin MD [address] [facility] [address] [place] [address] PCP - General Family Medicine 12/31/20 Rodolfo Mantilla MD [address] [place] [address] Consulting Physician Neurology 12/21/19
--- OUTSIDE RECORDS SUMMARY | 2024-10-31 03:50 | XMS_ITS | Encounter Summary ---
Author Organization [facility] Address [address] [place] [address] Phone Care Team Providers Care Glucose And Syrup Weigher Name Role Phone Rodolfo Mantilla MD Unavailable Sabrina Ruffin MD Primary Care Provider Encounter Details Date Type Department Care Team (Late st Contact Info) Description 06/05/2022 10:15 AM CDT Office Visit [facility] Neurosurgery [address] [facility] 6th [place] [address] [place] [address] Estefania Murphy, BE [address] [facility] [address] [place] [address] NPH (normal pressure hydrocephalus) (HCC) (Primary Dx); Ventriculopleural shunt status Social History Tobacco Use Types Packs/Day Years Used Date Smoking Tobacco: Former Cigarettes Q uit: 07/27/1970 Smokeless Tobacco: Never Alcohol Use Standard Drinks/Week Comments Yes 1 (1 standard drink = 0.6 oz pur e alcohol) AUDIT-C Answer Date Recorded Q1: How often do you have a drink containing alc ohol? Never 06/02/2022 Q2: How many drinks containi ng alcohol do you have on a typical day when you are drinking? 1 or 2 06/02/2022 Q3: How often do you have six or more drinks on one occasion? 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 She underwent right parietal ventriculoperitoneal shunt placement with a strata valve by Dr. Perez on July 27, 2020. Last documented setting was 1.5 She presents for a shunt check after an MRI earlier this morning. 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 Medication Sig Dispense Quantity Refills Last Filled Start D ate End Date nitroglycerin (NITROSTAT) 0.4 mg SL tablet 0.4 mg 06/03/2022 added in this encounter Care Teams Glucose And Syrup Weigher Relationship Specialty Start Date End Date Sabrina Ruffin MD [address] [facility] [address] [place] [address] PCP - General Family Medicine 12/31/20 Rodolfo Mantilla MD [address] [place] [address] Consulting Physician Neurology 12/21/19 documented as of this encounter
--- OUTSIDE RECORDS SUMMARY | 2024-10-31 03:50 | XMS_ITS | Encounter Summary ---
Author Organization [facility] Address [address] [place] [address] Phone Care Team Providers Care Combat Systems Officer Name Role Phone Rodolfo Mantilla MD Unavailable Sabrina Ruffin MD Primary Care Provider Encounter Details Date Type Department Care Team (Late st Contact Info) Description 08/29/2021 Telephone [facility] Neurosurgery [address] [facility] 6th [place] [address] [place] [phone] Gera Yang Social History Tobacco Use Types Packs/Day Years Used Date Smoking Tobacco: Former Cigarettes Q uit: 07/27/1970 Smokeless Tobacco: Never Alcohol Use Standard Drinks/Week Comments Yes 1 (1 standard drink = 0.6 oz pur e alcohol) AUDIT-C Answer Date Recorded Q1: How often do you have a drink containing alc ohol? Monthly or less 08/29/2021 Q2: How many drinks containi ng alcohol do you have on a typical day when you are drinking? 1 or 2 08/29/2021 Q3: How often do you have si x or more drinks on one occasion? 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 Pt is aware and agrees to appt. documented in this encounter Plan of Treatment Not on file documented as of this encounter Visit Diagnoses Not on filedocumented in this encounter Care Teams Combat Systems Officer Relationship Specialty Start Date End Date Sabrina Ruffin MD [address] [facility] [address] [place] [id number] PCP - General Family Medicine 12/31/20 Rodolfo Mantilla MD [address] [place] [address] Consulting Physician Neurology 12/21/19 documented as of this encounter
--- OUTSIDE RECORDS SUMMARY | 2024-10-31 03:50 | XMS_ITS | Encounter Summary ---
Author Organization [facility] Address [address] [place] [address] Phone Care Team Providers Care Curriculum Director Name Role Phone Rodolfo Mantilla MD Unavailable Sabrina Ruffin MD Primary Care Provider Encounter Details Date Type Department Care Team (Late st Contact Info) Description 06/05/2022 Telephone [facility] Neurosurgery [address] [facility] Advanced Medicine 6th [place] [address] [place] [address] Estefania Murphy, LEGAL RESEARCH ANALYST [address] [facility] [address] [place] [address] Social History Tobacco Use Types [...] on file 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 It does not appear that there is any available staff in clinic at [facility] neurosurgery this today for shunt check. Added the on-call resident number to call to the appointment notes for shunt check. documented in this encounter Plan of Treatment Not on file documented as of this encounter Visit Diagnoses Not on filedocumented in this encounter Care Teams Curriculum Director Relationship Specialty Start Date End Date Sabrina Ruffin MD [address] [facility] [address] [place] [address] PCP - General Family Medicine 12/31/20 Rodolfo Mantilla MD [address] [place] [address] Consulting Physician Neurology 12/21/19 documented as of this encounter
--- OUTSIDE RECORDS SUMMARY | 2024-10-31 03:50 | XMS_ITS | Encounter Summary ---
Author Organization [facility] Address [address] [place] [address] Phone Care Team Providers Care Coordinator Skill Training Program Name Role Phone Rodolfo Mantilla MD Unavailable Sabrina Ruffin MD Primary Care Provider Encounter Details Date Type Department Care Team (Late st Contact Info) Description 05/22/2022 Telephone [facility] Neurosurgery [address] [facility] 6th [place] [address] [place] [id number] Cindy Nelson, TEACHER OF THE EMOTIONALLY DISTURBED [address] [facility] [address] [place] [address] Social History Tobacco Use Types Packs/Day Years Used Date Smoking Tobacco: Former Cigarettes Q uit: 07/27/1970 Smokeless Tobacco: Never Alcohol Use Standard Drinks/Week Comments Yes 1 (1 standard drink = 0.6 oz pur e alcohol) AUDIT-C Answer Date Recorded Q1: How often do you have a drink containing alc ohol? Never 09/03/2021 Q2: How many drinks containi ng alcohol do you have on a typical day when you are drinking? 1 or 2 09/03/2021 Q3: How often do you have six or more drinks on one occasion? 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 EK appt switched to telehealth on 06/06/22 10:30 am lvm asking pt to call for appt details. documented in this encounter Plan of Treatment Not on file documented as of this encounter Visit Diagnoses Not on filedocumented in this encounter Care Teams Coordinator Skill Training Program Relationship Specialty Start Date End Date Sabrina Ruffin MD [address] [place] [address] PCP - General Family Medicine 12/31/20 Rodolfo Mantilla MD [address] [place] [address] Consulting Physician Neurology 12/21/19 documented as of this encounter
--- OUTSIDE RECORDS SUMMARY | 2024-10-31 03:50 | XMS_ITS | Encounter Summary ---
Author Organization [facility] Address [address] [facility] [address] [place] [address] Care Team Providers Care Spindle Repairer Name Role Phone Rdoolfo Mantilla MD Unavailable Myrna Ruffin MD Primary Care Provider Reason for Visit * Cardiology (Routine) - Closed Specialty Diagnoses / Procedures Referred By Contac t Referred To Contact Diagnoses SOB (shortness of breath) Abnormal EKG Procedures Transthoracic Echo Complete W Doppler/CF Myrna Ruffin MD [address] [place] [address] Phone: tel: fax: [facility] Referral ID Status Reason Start Date Expiration Date Visits Re quested Visits Authorized [id number] Closed 05/13/2021 06/12/2022 1 1 Encounter Details Date Type Department Care Team (Latest Contact Info) Description 06/18/2021 1:00 PM CDT Ancillary Procedure [facility] Cardiology [address] [facility] [address] [place] [address] SOB (shortness of breath); Abnormal EKG Social History Tobacco Use Types Packs/Day Years Used Date Smoking Tobacco: Former Cigarettes Q uit: 07/27/1970 Smokeless Tobacco: Never Alcohol Use Standard Drinks/Week Comments Yes 1 (1 standard drink = 0.6 oz pur e alcohol) Comments No Sex and Gender Information Value Date Recorded Sex Assigned at Not on file 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 Gender Identity Not on file Sexual Orientation Not on file Occupation Industry Job Start Date Job End Date retired Not on file Not on file Not on file documented as of this encounter Plan of Treatment Not on file documented as of this encounter Procedures Procedure Name Priority Date/Time Associated Diagnosis Comments TRANSTHORACIC ECHO (TTE) COMPLETE W DOPPLER/CF WO CONTRAST Routine 06/18/2021 1:40 PM CDT SOB (shortness of breath) Abnormal EKG documented in this encounter Results * TRANSTHORACIC ECHO (TTE) COMPLETE W DOPPLER/CF WO CONTRAST (06/18/2021 1:40 PM CDT) Anatomical Region Laterality Modality Ultrasound 06/18/2021 11:5 3 AM CDT Narrative 06/18/2021 4:51 PM CDT [facility] Cardiology [address] [facility] [address], [place] [address] [address], [place] [address] P:[phone] P:[phone] Echocardiographic Report Patient Name: JONNIE ALEX : 1945 Study Date: 06/18/2021 11:53:23 AM Gender: F Tech: Location: [place] Ref.Provider: MYRNA RUFFIN Height(Cm): 163 BSA: 2.04 Weight(Kg): 99.79 Heart Rate: 61 BP: 73 Quality: Good Order Provider: MYRNA RUFFIN Procedures: Echocardiographic Report: Transthoracic echocardiogram with complete 2D, M-Mode, and color Doppler examination. Indications: Abnormal EKG and SOB. Measurements: 2D/M Mode ?Doppler ? Measurement ?Value ?Normal Range ? Measurement ?Value ?Normal Range ? EF Mod ? 73 ?AV Mean PG ? 3 ?mmHg ? EF MM ?71 ? [ 55 - 70 ] % ?AV [place] ?1.03 ? m/s ? LVIDd MM ? 4.50 ? [ 3.90 - 5.30 ] cm ? AV Peak PG ? 4 ?mmHg ? LVIDs MM ? 2.70 ? [ 2.30 - 3.90 ] cm ? AV VTI ? 0.27 ? cm ? LVPWd MM ? 1.27 ? [ 0.60 - 1.00 ] cm ? LVOT [place] ?0.77 ? [ 0.70 - 1.10 ] m/s ? IVSd MM ?1.65 ? [ 0.60 - 0.90 ] cm ? LVOT VTI ? 0.17 ? cm ? LA Dimension MM ?4.50 ? [ 2.70 - 3.80 ] cm ? MV E [place] ?0.80 ? [ 0.60 - 1.30 ] m/s ? AoR Diam MM ?3.00 ? [ 2.60 - 3.70 ] cm ? MV A [place] ?1.16 ? [ 0.40 - 0.80 ] m/s ? LA Volume Index ?26.00 ?[ 16.00 - 28.00 ] cc/m2 ?MV Decel Time ?338 ?[ 150 - 200 ] msec ? ACS MM ? 1.80 ? cm ? PV [place] ?0.81 ? [ 0.40 - 0.80 ] m/s ? TR [place] ?3.39 ? [ 0.40 - 0.80 ] m/s ? TR Peak PG ? 46 ? mmHg ? RVSP ? 54.00 ?mmHg ? E' ? 0.07 ? E/E' ? 12 ? Findings: Interpretation Site: Exam was interpreted at [facility]. Left Ventricle: Normal left ventricular systolic function. No focal wall motion abnormalities. Normal left ventricular size. Mild concentric left ventricular hypertrophy. Asymmetric septal hypertrophy. Impaired diastolic relaxation Grade I. Ejection fraction is measured at 73 %. Right Ventricle: Normal right ventricular size. Normal right ventricular systolic function. Left Atrium: Left atrial size is within upper limits of normal. Right Atrium: The right atrium is normal in size. Atrial Septum: Normal atrial septum. Mitral Valve: Mitral valve leaflets appear mildly thickened. Moderate mitral annular calcification. Mild to moderate mitral valve regurgitation. Aortic Valve: Normal appearance of the aortic valve. No evidence of hemodynamically significant aortic stenosis by Doppler. Aortic cusps appear mildly sclerotic. Trileaflet aortic valve. No aortic regurgitation. Tricuspid Valve: Normal appearance of the tricuspid valve. Moderate pulmonary hypertension based on right ventricular systolic pressure. Estimated peak RVSP is 52 mmHg. Mild tricuspid regurgitation. Pulmonic Valve: Pulmonic valve not well visualized. Pericardium: Normal pericardium with no significant pericardial effusion. Aorta: Normal aortic root. No aortic root dilation. Mild aortic root calcification. IVC: The IVC is not well visualized. Conclusions: Normal left ventricular systolic function. No focal wall motion abnormalities. Normal left ventricular size. Mild concentric left ventricular hypertrophy. Asymmetric septal hypertrophy. Impaired diastolic relaxation Grade I. Ejection fraction is measured at 73 %. Mitral valve leaflets appear mildly thickened. Moderate mitral annular calcification. Mild to moderate mitral valve regurgitation. Normal appearance of the aortic valve. No evidence of hemodynamically significant aortic stenosis by Doppler. Aortic cusps appear mildly sclerotic. Trileaflet aortic valve. No aortic regurgitation. Normal appearance of the tricuspid valve. Moderate pulmonary hypertension based on right ventricular systolic pressure. Estimated peak RVSP is 52 mmHg. Mild tricuspid regurgitation. Normal sinus rhythm. Electronically Signed By: Obey Chavez MD 2021-06-18 16:51:14 CDT Procedure Note David Chavez MD - 06/18/2021 [facility] Cardiology [address] [facility] [address] [address] [address] [facility] [address] [address] P:[phone] P:[phone] Echocardiographic Report Patient Name: Melissa ALEX ID: [id number] : [id number] Date: 06/18/2021 11:53:23 AM Gender: FAccession #: [id number] Tech: GMLocation: [place] Ref.Provider: MYRNA RUFFINHeight(Cm): 163 BSA: 2.04Weight(Kg): 99.79 Heart Rate: 61BP: 73 Quality: GoodOrder Provider: MYRNA RUFFIN Procedures: Echocardiographic Report: Transthoracic echocardiogram with complete 2D, M-Mode, and color Dopplerexamination. Indications: Abnormal EKG and SOB. Measurements: 2D/M Mode Doppler Measurement Value Normal Range MeasurementValue Normal Range EF Mod 73 AV Mean PG 3mmHg EF MM 71 [ 55 - 70 ] % AV Peak Vel1.03 m/s LVIDd MM 4.50 [ 3.90 - 5.30 ] cm AV Peak PG 4mmHg LVIDs MM 2.70 [ 2.30 - 3.90 ] cm AV VTI0.27 cm LVPWd MM 1.27 [ 0.60 - 1.00 ] cm LVOT Peak Vel0.77 [ 0.70 - 1.10 ] m/s IVSd MM 1.65 [ 0.60 - 0.90 ] cm LVOT VTI0.17 cm LA Dimension MM 4.50 [ 2.70 - 3.80 ] cm MV E Peak Vel0.80 [ 0.60 - 1.30 ] m/s AoR Diam MM 3.00 [ 2.60 - 3.70 ] cm MV A Peak Vel1.16 [ 0.40 - 0.80 ] m/s LA Volume Index 26.00 [ 16.00 - 28.00 ] cc/m2 MV Decel Ysot157 [ 150 - 200 ] msec ACS MM 1.80 cm PV Peak Vel0.81 [ 0.40 - 0.80 ] m/s TR Peak Vel3.39 [ 0.40 - 0.80 ] m/s TR Peak PG 46mmHg RVSP54.00 mmHg E'0.07 E/E' 12 Findings: Interpretation Site: Exam was interpreted at [facility]. Left Ventricle: Normal left ventricular systolic function. No focal wall motionabnormalities. Normal left ventricular size. Mild concentric left ventricular hypertrophy.Asymmetric septal hypertrophy. Impaired diastolic relaxation Grade I. Ejection fraction ismeasured at 73 %. Right Ventricle: Normal right ventricular size. Normal right ventricular systolicfunction. Left Atrium: Left atrial size is within upper limits of normal. Right Atrium: The right atrium is normal in size. Atrial Septum: Normal atrial septum. Mitral Valve: Mitral valve leaflets appear mildly thickened. Moderate mitral annularcalcification. Mild to moderate mitral valve regurgitation. Aortic Valve: Normal appearance of the aortic valve. No evidence of hemodynamicallysignificant aortic stenosis by Doppler. Aortic cusps appear mildly sclerotic. Trileafletaortic valve. No aortic regurgitation. Tricuspid Valve: Normal appearance of the tricuspid valve. Moderate pulmonary hypertensionbased on right ventricular systolic pressure. Estimated peak RVSP is 52 mmHg. Mildtricuspid regurgitation. Pulmonic Valve: Pulmonic valve not well visualized. Pericardium: Normal pericardium with no significant pericardial effusion. Aorta: Normal aortic root. No aortic root dilation. Mild aortic rootcalcification. IVC: The IVC is not well visualized. Conclusions: Normal left ventricular systolic function. No focal wall motionabnormalities. Normal left ventricular size. Mild concentric left ventricular hypertrophy.Asymmetric septal hypertrophy. Impaired diastolic relaxation Grade I. Ejection fraction ismeasured at 73 %. Mitral valve leaflets appear mildly thickened. Moderate mitral annularcalcification. Mild to moderate mitral valve regurgitation. Normal appearance of the aortic valve. No evidence of hemodynamicallysignificant aortic stenosis by Doppler. Aortic cusps appear mildly sclerotic. Trileafletaortic valve. No aortic regurgitation. Normal appearance of the tricuspid valve. Moderate pulmonary hypertensionbased on right ventricular systolic pressure. Estimated peak RVSP is 52 mmHg. Mildtricuspid regurgitation. Normal sinus rhythm. Electronically Signed By: Obey Chavez MD 2021-06-18 16:51:14 CDT Myrna Ruffin MD CV ECHO PROCEDURES Ashley l Result documented in this encounter Visit Diagnoses Diagnosis SOB (shortness of breath) Shortness of breath Abnormal EKG Nonspecific abnormal electrocardiogram (ECG) (EKG) documented in this encounter Care Teams Spindle Repairer Relationship Specialty Start Date End Date Myrna Ruffin MD [address] [facility] [address] [place] [address] PCP - General Family Medicine 12/31/20 Rodolfo Mantilla MD [address] [place] [address] Consulting Physician Neurology 12/21/19 documented as of this encounter
--- OUTSIDE RECORDS SUMMARY | 2024-10-31 03:50 | XMS_ITS | Encounter Summary ---
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 Gender Identity Not on file Sexual Orientation Not on file Occupation Industry Job Start Date Job End Date retired Not on file Not on file Not on file documented as of this encounter Plan of Treatment Not on file documented as of this encounter Procedures Procedure Name Priority Date/Time Associated Diagnosis Comments SCAN - OTHER ORDERS 02/17/2022 documented in this encounter Results * SCAN - OTHER ORDERS (02/17/2022) us Provider Scanning Final Result documented in this encounter Visit Diagnoses Not on filedocumented in this encounter Care Teams Certified Orthoptist Relationship Specialty Start Date End Date Sabrina Ruffin MD [address] [place] [address] PCP - General Family Medicine 12/31/20 Rodolfo Mantilla MD [address] [place] [address] Consulting Physician Neurology 12/21/19 documented as of this encounter
--- OUTSIDE RECORDS SUMMARY | 2024-10-31 03:50 | XMS_ITS | Encounter Summary ---
Author Organization [facility] Address [address] [place] [address] Phone Care Team Providers Care Change Control Analyst Name Role Phone Rodolfo Mantilla MD Unavailable Sabrina Ruffin MD Primary Care Provider Reason for Referral * MRI/CAT/PET Scan (Routine) - Closed Specialty Diagnoses / Procedures Referred By Contac t Referred To Contact Radiology Diagnoses NPH (normal pressure hydrocephalus) (HCC) Ventriculopleural shunt status Procedures CT Head WO Contrast Estefania Murphy NP Phone: tel: fax: [address] [phone] Referral ID Status Reason Start Date Expiration Date Visits Re quested Visits Authorized [id number] Closed 08/29/2021 09/28/2022 1 1 Encounter Details Date Type Department Care Team (Late st Contact Info) Description 08/29/2021 12:00 PM CDT Office Visit [facility] Neurosurgery [address] [facility] 6th [place] [address] [place] [address] Cindy Nelson NP [address] [address] NPH (normal pressure hydrocephalus) (CMS/HCC) (HCC) (Primary Dx); Ventriculopleural shunt status Social [...] on file Legal Sex Female 1:04 AM BIT TRIPOLER Gender Identity Not on file Sexual Orientation Not on file Occupation Industry Job Start Date Job End Date retired Not on file Not on file Not on file documented as of this encounter Last Filed Vital Signs Vital Sign Reading Time Taken Comments Blood Pressure 195/81 08/29/2021 11:15 AM CDT Pulse 62 08/29/2021 11:15 AM CDT Temperature - - Respiratory Rate - - Oxygen Saturation 96% 08/29/2021 11: 15 AM CDT Inhaled Oxygen Concentration - - Weight 98.8 kg (217 lb 12.8 oz) 021 11:15 AM CDT Height 162.6 cm (5' 4 ) 08/29/2021 11:1 5 AM CDT Body Mass Index 37.39 08/29/2021 11:15 AM CDT documented in this encounter Progress Notes * Cindy Nelson NP - 08/29/2021 12:00 PM CDT Images from the original note were not included. RETURN VISIT Subjective HISTORY OF PRESENT ILLNESS Olga Bansal is a 75 y.o. female with a history of normal pressure hydrocephalus who underwent right parietal VINYL HANGER shunt with a strata valve on 07/27/2020 with . Her valve was last changed on 08/28/2020 to setting of 1.5. She returns to clinic today for a scheduled follow-up. She reports she has been doing well since her last visit in December, but she continues to have some falls and some bladder control problems. Reports her she is falling less often than she was before surgery but still feels and intermittent shuffling gait that causes occasional falls. Reports her bladder incontinence is improved since surgery, but not completely resolved. Reports short memory is stable, not worsened. For the past 2-3 months, She is taking MS Contin, methocarbamol, and medical marijuana for low back pain. Otherwise reports occasional headaches. No nausea or vomiting. She has stopped taking her carbidopa levodopa after surgery because she got better; she does not think that she actually had Parkinson's VITAL SIGNS BP (!) 195/81 (BP Location: Right arm, Patient Position: Sitting) Pulse 62 Ht 162.6 cm (5' 4 ) Wt 98.8 kg (217 lb 12.8 oz) SpO2 96% BMI 37.39 kg/m?? ALLERGIES She is allergic to celebrex [celecoxib] and sulfa (sulfonamide antibiotics). MEDICATIONS Current Outpatient Medications: ??? acetaminophen (TYLENOL) 325 mg tablet, Take 2 tablets (650 mg total) by mouth every 4 (four) hours as needed for pain, Disp: 30 tablet, Rfl: ??? gabapentin (NEURONTIN) 300 mg capsule, Take 600 mg by mouth 2 (two) times a day , Disp: , Rfl: ??? hydroCHLOROthiazide (HYDRODIURIL) 12.5 mg tablet, Take 12.5 mg by mouth daily, Disp: , Rfl: ??? levothyroxine (SYNTHROID, LEVOTHROID) 100 mcg tablet, Take 100 mcg by mouth daily., Disp: , Rfl: 5 ??? methocarbamoL (ROBAXIN) 500 mg tablet, Take 500 mg by mouth 2 (two) times a day, Disp: , Rfl: ??? metoprolol XL (TOPROL-XL) 50 mg 24 hr tablet, Take 50 mg by mouth daily., Disp: , Rfl: ??? morphine ER (MS CONTIN) 15 mg 12 hr tablet, Take 15 mg by mouth 2 (two) times a day, Disp: , Rfl: ??? valsartan (DIOVAN) 160 mg tablet, Take 160 mg by mouth daily, Disp: , Rfl: Objective PHYSICAL EXAM On the exam She awake, alert and oriented x3. Pupils are equal and reactive to light. Extraocular movements are intact. Cranial nerve exam is intact. Moves all extremities with equal strength. Ambulatse relatively well; No clear shuffling gait The valve was compressed and refilled without difficulty. The strata valve was identified, setting was confirmed at 1.5. Using the manual programmer analyst consultant, the setting was adjusted to 1.0. REVIEW OF IMAGING EXAMINATION: CT head without contrast ?? HISTORY: Normal pressure hydrocephalus. ?? TECHNIQUE: Noncontrast CT of the brain was performed with images acquired from skull base to vertex. ?? COMPARISON: 12/31/2020. ?? FINDINGS: ?? Unchanged position of a right parietal approach ventricular shunt catheter, tip crossing midline and terminating in the left lateral ventricle; no kinks or discontinuities. Unchanged moderate ventriculomegaly of the lateral and third ventricles. There is no acute intracranial hemorrhage. No mass effect or midline shift is present. The figueroa-white matter differentiation is normal. The visualized portions of the orbits are normal. The visualized portions of the mastoids are normal. The visualized portions of the paranasal sinuses are normal. No fractures are identified. ?? IMPRESSION: Right parietal approach ventricular shunt catheter with unchanged moderate lateral and third ventricular enlargement. ?? Dictated by: Randy Mancini M.D. Assessment/Plan PLAN Olga Bansal will return to the clinic in 6-8 weeks with a head CT without contrast to evaluate how she is doing after the shunt setting change. She will call with any new or worsening symptoms including headache or nausea or vomiting in the interim. Cindy Nelson NP Cosigned by Leobardo Perez MD at 09/04/2021 7:48 AM BIT TRIPOLER TRIPOLER documented in this encounter Plan of Treatment Not on file documented as of this encounter Results * CT Head WO Contrast (06/02/2022 10:17 AM CDT) Anatomical Region Laterality Modality Head and Neck N/A Computed Tomogra phy 06/02/2022 10:5 7 AM CDT Impressions 06/02/2022 11:34 AM CDT 1. ??No acute intracranial abnormality. 2. ??Unchanged mild shunted ventriculomegaly. Dictated by: Tunde Murray MD The radiology attending physician has personally reviewed this study, and had reviewed and/or edited this written report and agrees with it. Electronically signed by: Jayro Romero M.D. Narrative 06/02/2022 11:34 AM CDT EXAMINATION: CT HEAD WO CONTRAST HISTORY: follow up NPH TECHNIQUE: CT of the brain was performed with images acquired from skull base to vertex without contrast. COMPARISON: None available. FINDINGS: Right occipital shunt catheter is stable in position with tip overlying the left lateral ventricular body. Mild ventriculomegaly is unchanged. There is no acute intracranial hemorrhage. No mass effect or midline shift. The figueroa-white matter differentiation is normal. Mildly prominent retrocerebellar CSF space. Postsurgical changes of lens replacement. ??Otherwise the visualized portions of the orbits are normal ??The paranasal sinuses are clear and well-aerated. ??The mastoid air cells and middle ear cavities are clear. The petrous apices are pneumatized. Intracranial atherosclerosis is present within the anterior and posterior circulations. Procedure Note Jayro Romero MD - 06/02/2022 EXAMINATION: CT HEAD WO CONTRAST HISTORY: follow up NPH TECHNIQUE: CT of the brain was performed with images acquired from skull base to vertex without contrast. COMPARISON: None available. FINDINGS: Right occipital shunt catheter is stable in position with tip overlying the left lateral ventricular body. Mild ventriculomegaly is unchanged. There is no acute intracranial hemorrhage. No mass effect or midline shift. The figueroa-white matter differentiation is normal. Mildly prominent retrocerebellar CSF space. Postsurgical changes of lens replacement. Otherwise the visualized portions of the orbits are normal The paranasal sinuses are clear and well-aerated. The mastoid air cells and middle ear cavities are clear. The petrous apices are pneumatized. Intracranial atherosclerosis is present within the anterior and posterior circulations. IMPRESSION: 1. No acute intracranial abnormality. 2. Unchanged mild shunted ventriculomegaly. Dictated by: Tunde Murray MD The radiology attending physician has personally reviewed this study, and had reviewed and/or edited this written report and agrees with it. Electronically signed by: Jayro Romero M.D. 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 Therapy completed 08/29/2021 carbidopa-levodopa (SINEMET) 25-100 mg per tabletIndications:Parki nsonism Take 4 tabs 3 times per day Therapy completed 09/04/2020 08/29/2021 traZODone (DESYREL) 100 mg tabletIndications:sleep Take 50-100 mg by mouth nightly Therapy completed 08/29/2021 venlafaxine XR (EFFEXOR-XR) 37.5 mg 24 hr capsule Take 37.5 mg by mouth as directed 1 cap in the morning and 2 caps in the evening Therapy completed 12/15/2019 08/29/2021 documented as of this encounter Historical Medications * This list may reflect changes made after this encounter. methocarbamoL (ROBAXIN) 500 mg tablet Take 500 mg by mouth 2 (two) times a day 07/30/2021 added in this encounter Care Teams Change Control Analyst Relationship Specialty Start Date End Date Sabrina Ruffin MD [address] [place] [address] PCP - General Family Medicine 12/31/20 Rodolfo Mantilla MD [address] [place] [address] Consulting Physician Neurology 12/21/19 documented as of this encounter
--- OUTSIDE RECORDS SUMMARY | 2024-10-31 03:50 | XMS_ITS | Encounter Summary ---
Author Organization [facility] Address [address] [place] [address] Phone Care Team Providers Care Detective Sergeant Name Role Phone Rodolfo Mantilla MD Unavailable Sabrina Ruffin MD Primary Care Provider Reason for Referral * MRI/CAT/PET Scan (Routine) - Closed Specialty Diagnoses / Procedures Referred By Contac t Referred To Contact Radiology Diagnoses NPH (normal pressure hydrocephalus) (HCC) Procedures CT Head WO Contrast Pati Odell NP [address] [place] [address] Phone: tel: fax: [address] [phone] Referral ID Status Reason Start Date Expiration Date Visits Re quested Visits Authorized [id number] Closed 07/02/2023 07/31/2024 1 1 Encounter Details Date Type Department Care Team (Late st Contact Info) Description 07/02/2023 Orders Only [facility] Neurosurgery [address] [facility] Advanced [facility] 6th [place] [address] [place] [address] Pati Odell NP [address] [place] [address] NPH (normal pressure hydrocephalus) (HCC) (Primary Dx) Social History Tobacco Use Types Packs/Day Years [...] on file 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 ??Right parietal approach shunt catheter with unchanged mild lateral and 3rd ventriculomegaly. Electronically signed by: Ranjan Brown M.D. Narrative 07/02/2023 1:06 PM CDT EXAMINATION: CT head without contrast HISTORY: Shunted hydrocephalus TECHNIQUE: CT of the head was performed with images acquired from skull base to vertex without intravenous contrast. COMPARISON: Head CT from 06/02/2022 FINDINGS: Again seen is a right parietal approach ventricular catheter which crosses the midline and terminates in the region of the body of the left lateral ventricle. ??Visualized portions of the catheter appear intact. ??There is continued mild lateral and 3rd ventricular enlargement, grossly unchanged. There is no acute intracranial hemorrhage No mass effect or midline shift is present. The figueroa-white matter differentiation is normal. The visualized portions of the orbits are normal. The visualized portions of the mastoids are normal. The visualized portions of the paranasal sinuses are normal. No fractures are identified. Procedure Note Ranjan Brown MD - 07/02/2023 EXAMINATION: CT head without contrast HISTORY: Shunted hydrocephalus TECHNIQUE: CT of the head was performed with images acquired from skull base to vertex without intravenous contrast. COMPARISON: Head CT from 06/02/2022 FINDINGS: Again seen is a right parietal approach ventricular catheter which crosses the midline and terminates in the region of the body of the left lateral ventricle. Visualized portions of the catheter appear intact. There is continued mild lateral and 3rd ventricular enlargement, grossly unchanged. There is no acute intracranial hemorrhage No mass effect or midline shift is present. The figueroa-white matter differentiation is normal. The visualized portions of the orbits are normal. The visualized portions of the mastoids are normal. The visualized portions of the paranasal sinuses are normal. No fractures are identified. IMPRESSION: 1. Right parietal approach shunt catheter with unchanged mild lateral and 3rd ventriculomegaly. Electronically signed by: Ranjan Brown M.D. Pati Odell NP IMG CT PROCEDURES Final Result documented in this encounter Visit Diagnoses Diagnosis NPH (normal pressure hydrocephalus) (HCC)- Primary Idiopathic normal pressure hydrocephalus (INPH) NPH (normal pressure hydrocephalus) (HCC) Idiopathic normal pressure hydrocephalus (INPH) documented in this encounter Care Teams Detective Sergeant Relationship Specialty Start Date End Date Sabrina Ruffin MD [address] [facility] [address] [place] [address] PCP - General Family Medicine 12/31/20 Rodolfo Mantilla MD [address] [place] [address] Consulting Physician Neurology 12/21/19 documented as of this encounter
--- OUTSIDE RECORDS SUMMARY | 2024-10-31 03:50 | XMS_ITS | Encounter Summary ---
Author Organization [facility] Address [address] [place] [address] Phone Care Team Providers Care Powder Press Operator Name Role Phone Rodolfo Mantilla MD Unavailable Sabrina Ruffin MD Primary Care Provider Encounter Details Date Type Department Care Team (Late st Contact Info) Description 07/09/2021 Telephone [facility] Neurosurgery [address] [facility] Advanced [facility] 6th [place] [address] [place] [address] Cindy Nelson, [place] [address] [address] Social History Tobacco Use Types Packs/Day Years Used Date Smoking Tobacco: Former Cigarettes Q uit: 07/27/1970 Smokeless Tobacco: Never Alcohol Use Standard Drinks/Week Comments Yes 1 (1 standard drink = 0.6 oz pur e alcohol) Comments No Sex and Gender Information Value Date Recorded Sex Assigned at Not on file 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 Gender Identity Not on file Sexual Orientation Not on file Occupation Industry Job Start Date Job End Date retired Not on file Not on file Not on file documented as of this encounter Miscellaneous Notes * Telephone Encounter - Abbey Moon RMA - 07/11/2021 11:14 AM CDT Called patient and LM for the patient regarding the assistance that the patient need for my chart My chart help desk was left on the patient voice mail Will mail the patient an unable to reach letter so that she will be able to contact the office * Telephone Encounter - Abbey Moon RMA - 07/10/2021 3:27 PM CDT Called patient and LM for the patient to call the office back to get assists with getting into her my chart account [facility] my chart help desk [phone] was left for the patient as well as the office number so that she can all back * Telephone Encounter - Abbey Moon RMA - 07/09/2021 4:20 PM CDT Called patient and LM to call the office so that I can help her figure out her my chart Left my direct number for the patient back Will follow up with the patient in the morning * Telephone Encounter - Maria De Jesus Rincon RN - 07/09/2021 4:12 PM CDT [place] - can you please address? * Telephone Encounter - Penelope Howell - 07/09/2021 1:46 PM CDT Patient states that she arrived at CT today and was told that her CT had been cancelled. Her appt with [facility] had aslo been cancelled and rescheduled and patient was not notified. I have printed patient's new appt details and given them to her, she would also like to speak with someone from [facility]'s team. Says that she does not know how to access her MyChart. Patient has been provided with phone number for the department. documented in this encounter Plan of Treatment Not on file documented as of this encounter Visit Diagnoses Not on filedocumented in this encounter Care Teams Powder Press Operator Relationship Specialty Start Date End Date Sabrina Ruffin MD [address] [place] [address] PCP - General Family Medicine 12/31/20 Rodolfo Mantilla MD [address] [facility] [facility] [address] [place] [address] Consulting Physician Neurology 12/21/19 documented as of this encounter
--- OUTSIDE RECORDS SUMMARY | 2024-10-31 03:50 | XMS_ITS | Encounter Summary ---
Author Organization [facility] Address [address] [place] [address] Phone Care Team Providers Care Paradichlorobenzene Machine Operator Name Role Phone Rodolfo Mantilla MD Unavailable Sabrina Ruffin MD Primary Care Provider Encounter Details Date Type Department Care Team (Late st Contact Info) Description 09/03/2021 10:45 AM ZIPPER LINING FOLDER Office Visit [facility] Neurosurgery [address] [facility] 6th [place] [address] [place] [address] Cindy Nelson, BE [address] [facility] [address] [place] [address] NPH (normal pressure hydrocephalus) (CMS/HCC) (HCC) (Primary Dx) Social History Tobacco Use [...] on file Legal Sex Female 1:04 AM ZIPPER LINING FOLDER Gender Identity Not on file Sexual Orientation Not on file Occupation Industry Job Start Date Job End Date retired Not on file Not on file Not on file documented as of this encounter Last Filed Vital Signs Vital Sign Reading Time Taken Comments Blood Pressure - - Pulse - - Temperature - - Respiratory Rate - - Oxygen Saturation - - Inhaled Oxygen Concentration - - Weight 98.4 kg (217 lb) 09/03/2021 11:01 AM ZIPPER LINING FOLDER Height 162.6 cm (5' 4 ) 09/03/2021 11:01 AM ZIPPER LINING FOLDER Body Mass Index 37.25 09/03/2021 11:01 AM ZIPPER LINING FOLDER documented in this encounter Progress Notes * Cindy Nelson, BE - 09/03/2021 10:45 AM CST Images from the original note were not included. RETURN VISIT Subjective HISTORY OF PRESENT ILLNESS Olga Bansal is a 75 y.o. female with a history of normal pressure hydrocephalus who underwent right parietal SERVICE SPECIALIST shunt with a strata valve on 07/27/2020 with .?Her valve was last changed on 08/28/2020 to setting of 1.5. At the last appointment on 08/29/2021 her shunt was dialed down to 1.0. Unfortunately she started to have dizziness in the morning therefore she comes in today for evaluation of a head CT and the changing her shunt setting to 1.5. She contacted the office yesterday with complaints of intermittent dizziness since the shunt setting was changed on August 29. We asked her to come back to the clinic with a head CT followed by anappointment. Reports dizziness, typically in the morning when she 1st gets up. It is intermittent. She also has had some new , mild headaches since the setting change. No nausea, vomiting. No speech or vision changes. No numbness, tingling, weakness on the face, upper or lower extremities. No changes to her gait. No changes to her bladder control. No changes to her short memory. VITAL SIGNS Ht 162.6 cm (5' 4 ) Wt 98.4 kg (217 lb) BMI 37.25 kg/m?? ALLERGIES She is allergic to celebrex [celecoxib] and sulfa (sulfonamide antibiotics). MEDICATIONS Current Outpatient Medications: ??? acetaminophen (TYLENOL) 325 mg tablet, Take 2 tablets (650 mg total) by mouth every 4 (four) hours as needed for pain, Disp: 30 tablet, Rfl: ??? gabapentin (NEURONTIN) 300 mg capsule, Take 600 mg by mouth 2 (two) times a day , Disp: , Rfl: ??? levothyroxine (SYNTHROID, LEVOTHROID) [...] intact. Moves all extremities with equal strength. Ambulates without difficulty. The Medtronic strata valve was identified, it was compressed and refilled without difficulty. Usingthe manual bioinformatics programmer, the valve setting was confirmed at 1.0. Using the manual bioinformatics programmer, the setting was adjusted to 1.5 REVIEW OF IMAGING EXAMINATION: CT head without contrast ?? HISTORY: Dizziness, concern for subdural hemorrhage. ?? TECHNIQUE: Noncontrast CT of the brain was performed with images acquired from skull base to vertex. ?? COMPARISON: Head CT dated 08/29/2021. ?? FINDINGS: There is a right occipital approach shunt catheter which terminates in the left lateral ventricle, unchanged. Intracranial atherosclerosis is noted. Topogram demonstrates no lytic lesions or fractures. There is no acute intracranial hemorrhage. There is stable mild ventriculomegaly. No mass effect or midline shift is present. The figueroa-white matter differentiation is normal. The visualized portions of the orbits are normal. The visualized portions of the mastoids are normal. The visualized portions of the paranasal sinuses are normal. No fractures are identified. ?? IMPRESSION: No acute intracranial abnormality. ?? Stable shunt catheter and mild ventriculomegaly. ?? Electronically signed by: Pritesh Yang Assessment/Plan PLAN Given the patient's new dizziness and headaches after the setting changed to 1.0 last week, we decided to change the setting back to 1.5 which she has tolerated well before. We will see her back in the clinic in May of [address] with a repeat head CT without contrast. She will call with new or worsening symptoms. Cindy Nelson NP ER LINING FOLDER documented in this encounter Plan of Treatment Not on file documented as of this encounter Visit Diagnoses Diagnosis NPH (normal pressure hydrocephalus) (HCC)- Primary Idiopathic normal pressure hydrocephalus (INPH) documented in this encounter Discontinued Medications Medication Sig Discontinue Reason Start Date End Da te hydroCHLOROthiazide (HYDRODIURIL) 12.5 mg tablet Take 12.5 mg by mouth daily Therapy completed 04/20/2020 09/03/2021 documented as of this encounter Care Teams Paradichlorobenzene Machine Operator Relationship Specialty Start Date End Date Sabrina Ruffin MD [address] [facility] [address] [facility] [address] [place] [address] PCP - General Family Medicine 12/31/20 Rodolfo Mantilla MD [address] [place] [address] Consulting Physician Neurology 12/21/19 documented as of this encounter
--- OUTSIDE RECORDS SUMMARY | 2024-10-31 03:50 | XMS_ITS | Encounter Summary ---
Author Organization [facility] Address [address] [place] [address] Care Team Providers Care Molder Helper Name Role Phone Rodolfo Mantilla MD Unavailable Sabrina Ruffin MD Primary Care Provider Encounter Details Date Type Department Care Team (Late st Contact Info) Description 05/13/2021 Orders Only [facility] Cardiology [address] [place] [address] Provider, MD Clifford [address] [place] [address] Social History Tobacco Use Types Packs/Day Years Used Date Smoking Tobacco: Former Cigarettes Q uit: 07/27/1970 Smokeless Tobacco: Never Alcohol Use Standard Drinks/Week Comments Yes 1 (1 standard drink = 0.6 oz pur e alcohol) Comments No Sex and Gender Information Value Date Recorded Sex Assigned at Not on file 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 Gender Identity Not on file Sexual Orientation Not on file Occupation Industry Job Start Date Job End Date retired Not on file Not on file Not on file documented as of this encounter Plan of Treatment Not on file documented as of this encounter Procedures Procedure Name Priority Date/Time Associated Diagnosis Comments CARDIOLOGY DOCUMENT SCAN Routine 05/13/2021 CARDIOLOGY DOCUMENT SCAN Routine 05/13/2021 documented in this encounter Results * SCAN - CARDIOLOGY (05/13/2021) Anatomical Region Laterality Modality Other Historical Provider [facility] YULIA VIVEROS Final Result * SCAN - CARDIOLOGY (05/13/2021) Anatomical Region Laterality Modality Other Historical Provider [facility] YULIA VIVEROS Final Result documented in this encounter Visit Diagnoses Not on filedocumented in this encounter Care Teams Molder Helper Relationship Specialty Start Date End Date Sabrina Ruffin MD [address] [facility] [address] [place] [address] PCP - General Family Medicine 12/31/20 Rodolfo Mantilla MD [address] [place] [address] Consulting Physician Neurology 12/21/19 documented as of this encounter
--- OUTSIDE RECORDS SUMMARY | 2024-10-31 03:50 | XMS_ITS | Encounter Summary ---
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 Gender Identity Not on file Sexual Orientation Not on file Occupation Industry Job Start Date Job End Date retired Not on file Not on file Not on file documented as of this encounter Plan of Treatment Not on file documented as of this encounter Procedures Procedure Name Priority Date/Time Associated Diagnosis Comments SCAN - OTHER ORDERS 06/02/2022 documented in this encounter Results * SCAN - OTHER ORDERS (06/02/2022) us Provider Scanning Edited Result - Final documented in this encounter Visit Diagnoses Not on filedocumented in this encounter Care Teams Restaurant Greeter Relationship Specialty Start Date End Date Sabrina Ruffin MD [address] [place] [address] PCP - General Family Medicine 12/31/20 Rodolfo Mantilla MD [address] [place] [address] Consulting Physician Neurology 12/21/19 documented as of this encounter
--- OUTSIDE RECORDS SUMMARY | 2024-10-31 03:50 | XMS_ITS | Encounter Summary ---
Author Organization [facility] Address [address] [place] [address] Care Team Providers Care Heart Nurse Name Role Phone Rodolfo Mantilla MD Unavailable Sabrina Ruffin MD Primary Care Provider Reason for Referral * MRI/CAT/PET Scan (Routine) - Closed Specialty Diagnoses / Procedures Referred By Contac t Referred To Contact Radiology Diagnoses NPH (normal pressure hydrocephalus) (HCC) Procedures CT Head WO Contrast Pati Odell NP [address] [place] [address] Phone: tel: fax: [address] [phone] Referral ID Status Reason Start Date Expiration Date Visits Re quested Visits Authorized [id number] Closed 07/02/2023 07/31/2024 1 1 Reason for Visit * MRI/CAT/PET Scan (Routine) - Closed Specialty Diagnoses / Procedures Referred By Contac t Referred To Contact Radiology Diagnoses NPH (normal pressure hydrocephalus) (HCC) Procedures CT Head WO Contrast Pati Odell NP [address] [place] [address] Phone: tel: fax: [address] [phone] Referral ID Status Reason Start Date Expiration Date Visits Re quested Visits Authorized [id number] Closed 07/02/2023 07/31/2024 1 1 Encounter Details Date Type Department Care Team (Latest Contact Info) Description 07/02/2023 12:12 PM CDT - 07/02/2023 11:59 PM CDT Hospital Encounter [facility] [address] [place] [address] NPH (normal pressure hydrocephalus) (HCC) Discharge Disposition: Discharge to home or self care Social History Tobacco Use Types Packs/Day Years [...] on file 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 Gender Identity Not on file Sexual Orientation Not on file Occupation Industry Job Start Date Job End Date retired Not on file Not on file Not on file documented as of this encounter Medications at Time of Discharge acetaminophen (TYLENOL) 325 mg tabletIndication s:Pain Take 2 tablets (650 mg total) by mouth every 4 (four) hours as needed for pain 30 tablet 07/28/2020 albuterol HFA (PROVENTIL HFA,VENTOLIN HFA,PROAIR HFA) 90 mcg/actuation inhaler INHALE 1 PUFF BY MOUTH EVERY 4 HOURS NEEDED FOR SHORTNESS OF BREATH OR WHEEZING 04/20/2023 amLODIPine (NORVASC) 5 mg tablet Take 1 tablet (5 mg total) by mouth daily 05/22/2023 atorvastatin (LIPITOR) 10 mg tablet Take 10 mg by mouth nightly 02/28/2022 benzonatate (TESSALON) 100 mg capsule TAKE 2 CAPSULES BY MOUTH THREE TIMES DAILY NEEDED FOR COUGH 04/20/2023 cephalexin (KEFLEX) 500 mg capsule TAKE 1 CAPSULE BY MOUTH EVERY 12 HOURS FOR 10 DAYS 04/02/2023 cyclobenzaprine (FLEXERIL) 5 mg tablet Take 1 tablet (5 mg total) by mouth 3 (three) times a day 04/02/2023 dicyclomine (BENTYL) 10 mg capsule TAKE 1 CAPSULE BY MOUTH THREE TIMES DAILY NEEDED FOR ABDOMINAL PAIN 06/28/2023 fluticasone propionate (FLONASE) 50 mcg/actuation nasal spray Administer 1 spray into each nostril daily 03/03/2022 guaiFENesin-code ine (GUAITUSS AC) liquid 100-10 mg/5 mL TAKE 5 ML BY MOUTH EVERY 6 HOURS 06/08/2023 hydroCHLOROthiaz laila (HYDRODIURIL) 25 mg tablet Take 25 mg by mouth daily 07/09/2022 HYDROcodone-acet aminophen (NORCO) 5-325 mg per tablet Take 1 tablet by mouth every 8 (eight) hours as needed 04/21/2022 ibuprofen (ADVIL,MOTRIN) 400 mg tablet ONE TABLET BY MOUTH EVERY 6 HOURS NEEDED FOR PAIN OR FEVER 07/05/2022 levothyroxine (SYNTHROID, LEVOTHROID) 100 mcg tablet Take 100 mcg by mouth daily. 5 08/08/2018 methocarbamoL (ROBAXIN) 500 mg tablet Take 500 mg by mouth 2 (two) times a day 07/30/2021 metoprolol XL (TOPROL-XL) 50 mg 24 hr tablet Take 50 mg by mouth daily. morphine ER (MS CONTIN) 15 mg 12 hr tablet Take 15 mg by mouth 2 (two) times a day nitroglycerin (NITROSTAT) 0.4 mg SL tablet 0.4 mg 06/03/2022 QUEtiapine (SEROquel) 25 mg tablet Take 25 mg by mouth daily 04/25/2022 valsartan (DIOVAN) 160 mg tablet Take 160 mg by mouth daily valsartan-hydroc hlorothiazide (DIOVAN-HCT) 320-12.5 mg per tablet Take 1 tablet by mouth daily 05/12/2022 gabapentin (NEURONTIN) 300 mg capsule Take 2 capsules (600 mg total) by mouth 3 (three) times a day 180 capsule 11 06/02/2022 3 documented as of this encounter Discharge Disposition Disposition Code Departure Means Destination Discharge to home or self care documented in this encounter Plan of Treatment Not on file documented as of this encounter Procedures Procedure Name Priority Date/Time Associated Diagnosis Comments CT HEAD WO CONTRAST Schedule Routine, Read Routine (OP Routine) 07/02/2023 12:31 PM CDT NPH (normal pressure hydrocephalus) (HCC) documented in this encounter Results * CT Head WO [...] signed by: Ranjan Brown M.D. Pati Odell AIX SYSTEM ADMINISTRATOR IMG CT PROCEDURES Final Result documented in this encounter Visit Diagnoses Diagnosis NPH (normal pressure hydrocephalus) (HCC) Idiopathic normal pressure hydrocephalus (INPH) documented in this encounter Care Teams Heart Nurse Relationship Specialty Start Date End Date Sabrina Ruffin MD [address] [facility] [address] [place] [address] PCP - General Family Medicine 12/31/20 Rodolfo Mantilla MD [address] [place] [address] Consulting Physician Neurology 12/21/19 documented as of this encounter
--- OUTSIDE RECORDS SUMMARY | 2024-10-31 03:50 | XMS_ITS | Encounter Summary ---
Author Organization [facility] Address [address] [place] [address] Phone Care Team Providers Care Watch Dial Stoner Name Role Phone Rodolfo Mantilla MD Unavailable Sabrina Ruffin MD Primary Care Provider Encounter Details Date Type Department Care Team (Late st Contact Info) Description 06/02/2022 12:00 PM CDT Office Visit [facility] Neurosurgery [address] [facility] Advanced [facility] 6th [place] [address] [place] [address] Estefania Murphy, BE [address] [facility] [address] [place] [address] NPH (normal pressure hydrocephalus) (HCC) [...] on file 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 Gender Identity Not on file Sexual Orientation Not on file Occupation Industry Job Start Date Job End Date retired Not on file Not on file Not on file documented as of this encounter Last Filed Vital Signs Vital Sign Reading Time Taken Comments Blood Pressure 152/76 06/02/2022 12:11 PM CDT Pulse 83 06/02/2022 12:11 PM CDT Temperature - - Respiratory Rate - - Oxygen Saturation - - Inhaled Oxygen Concentration - - Weight 93.4 kg (206 lb) 06/02/2022 12:11 PM CDT Height 162.6 cm (5' 4 ) 06/02/2022 12:11 PM CDT Body Mass Index 35.36 06/02/2022 12:11 PM CDT documented in this encounter Ordered Prescriptions Prescription Sig Dispense Quantity Refills Last Filled Start Date End Date gabapentin (NEURONTIN) 300 mg capsule Take 2 capsules (600 mg total) by mouth 3 (three) times a day 180 capsule 11 06/02/2022 3 documented in this encounter Progress Notes * Estefania Murphy, BE - 06/02/2022 12:00 PM CDT Images from the original note were not included. RETURN VISIT Subjective HISTORY OF PRESENT ILLNESS Olga Bansal is a 76 y.o. female with history of normal pressure hydrocephalus. She underwent a right parietal ventriculoperitoneal shunt placement with a strata valve by Dr. Perez on July 27, 2020. Last documented setting was 1.5. She had been adjusted to 1.0 once before, but developed dizzine ss requiring an adjustment back to 1.5. She returns for a scheduled follow-up. She is 1 year and 10 months status post surgery. Reports overall she is doing well. Prior to surgery, she fell every day. Over the past 10 months since her lastvisit, she has had 2 or 3 falls. She relates these falls to degenerative disc disease. No bladder control issues. Memory is stable. She is overall happy with how she is doing since surgery. She does mention that she has discomfort and headaches over the shunt area, since surgery, but may be increased over the past 6 months. PMH She has a past medical history of Anemia, Arthritis, Blood clot associated with vein wall inflammation, Cataract, Depression, Diabetes mellitus (HCC), History of transfusion, Hypertension, Osteopenia, PONV (postoperative nausea and vomiting), Thalassemia minor, and Thyroid disease. She has no past medical history of Asthma, Awareness under anesthesia, CHF (congestive heart failure) ([facility]/HCC) ([facility]), COPD (chronic obstructive pulmonary disease) ([facility]/HCC) ([facility]), Coronary artery disease, Delayed emergence from general anesthesia, Dementia ([facility]), Hard to intubate, Liver disease, Malignant hyperthermia, Parkinson's disease ([facility]/HCC) ([facility]), Peptic ulceration, Postoperative delirium, Pseudocholinesterase deficiency, Seizures ([facility]/HCC) ([facility]), Sleep apnea, Stroke ([facility]) ([facility]), Tuberculosis, or Vision loss. Past medical history was reviewed. PS She has a past surgical history that includes Cholecystectomy; Hysterectomy; knee arthroscopy; Thyroidectomy, partial; Carpal tunnel release; IR Remove Vena Cava Filter (N/A, 05/21/2018); PET Limited Ga-68 MRI Abdomen W WO Contrast (N/A, 07/24/2020); and Replacement total knee (Bilateral). Past surgical history was reviewed. Allergies 06/02/22. List Reconciled and reviewed. She is allergic to celebrex [celecoxib] and sulfa (sulfonamide antibiotics). Current Meds 06/02/22. List Reconciled and reviewed. She has a current medication list which includes the following prescription(s): acetaminophen, gabapentin, levothyroxine, methocarbamol, metoprolol xl, morphine er, and valsartan. Family Hx Her family history includes Diabetes in her son; Early in her son; Heart disease in her brother and father; Hypertension in her mother; NPH (age of onset: 75) in her sister. Personal Hx She reports that she quit smoking about 51 years ago. Her smoking use included cigarettes. She has never used smokeless tobacco. She reports that she does not use drugs. Patient denies consuming alcoholic drinks. Objective PHYSICAL EXAM Vital Signs There were no vitals taken for this visit. Mental Status Patient is awake, alert, oriented x 3. Speech is clear and fluent. Cranial Nerves Pupils are equal and reactive to light. Extraocular movements are intact. Facial sensation intact to light touch. Face symmetric. Hearing normal to rubbing fingers. Palate elevates symmetrically. Head turning and shoulder shrug intact. Tongue protrudes midline. Motor Moves all extremities with equal strength. Reflexes Deep tendon reflexes within normal limits. Sensory Sensation intact to light touch on upper and lower extremities. Gait Gait is steady. Using the manual sas programmer analyst, I interrogated the strata valve and it was noted to be at a setting of1.5 No tenderness to palpation over the greater and lesser occipital nerves on the right side REVIEW OF IMAGING I have personally reviewed the following images: CT head without contrast 06/02/22 Narrative & Impression EXAMINATION: CT HEAD WO CONTRAST ?? HISTORY: follow up NPH ?? TECHNIQUE: CT of the brain was performed with images acquired from skull base to vertex without contrast. ?? COMPARISON: None available. ?? FINDINGS: ?? Right occipital shunt catheter is stable in position with tip overlying the left lateral ventricular body. Mild ventriculomegaly is unchanged. ?? There is no acute intracranial hemorrhage. No [...] present within the anterior and posterior circulations. ?? IMPRESSION: ?? 1. No acute intracranial abnormality. 2. Unchanged mild shunted ventriculomegaly. ?? Dictated by: Tunde Murray MD ?? The radiology attending physician has personally reviewed this study, and had reviewed and/or edited this written report and agrees with it. ?? Electronically signed by: Jayro Romero M.D. Assessment/Plan PLAN This patient is 1 year and 10 months status post ventriculoperitoneal shunt placement for normal pressure hydrocephalus. Her symptoms of gait disturbance and bladder incontinence are significantly improved. Today's head CT is stable. We will see her back in 1 year without new films. For her discomfort and headache over the right side parietal and frontal area, this could be some irritation secondary to the valve. She is already taking 600 mg of gabapentin twice daily, we discussed the option of increasing this. She is interested and tolerates her current doses without difficulty. We will increase the gabapentin to 600 mg 3 times a day. JOHN Lorenz, AGNP-C Department of Neurosurgery Cosigned by Leobardo Perez MD at 10/20/2022 1:27 PM CHOCOLATE MOLDER OLATE MOLDER documented in this encounter Plan of Treatment Not on file documented as of this encounter Visit Diagnoses Diagnosis NPH (normal pressure hydrocephalus) (HCC)- Primary Idiopathic normal pressure hydrocephalus (INPH) Ventriculopleural shunt status documented in this encounter Discontinued Medications Medication Sig Discontinue Reason Start Date End Da te gabapentin (NEURONTIN) 300 mg capsule Take 600 mg by mouth 2 (two) times a day Reorder 06/02/2022 documented as of this encounter Historical Medications * This list may reflect changes made after this encounter. valsartan-hydroc hlorothiazide (DIOVAN-HCT) 320-12.5 mg per tablet Take 1 tablet by mouth daily 05/12/2022 QUEtiapine (SEROquel) 25 mg tablet Take 25 mg by mouth daily 04/25/2022 HYDROcodone-acet aminophen (NORCO) 5-325 mg per tablet Take 1 tablet by mouth every 8 (eight) hours as needed 04/21/2022 fluticasone propionate (FLONASE) 50 mcg/actuation nasal spray Administer 1 spray into each nostril daily 03/03/2022 atorvastatin (LIPITOR) 10 mg tablet Take 10 mg by mouth nightly 02/28/2022 added in this encounter Care Teams Watch Dial Stoner Relationship Specialty Start Date End Date Sabrina Ruffin MD [address] [facility] [address] [facility] [address] [place] [address] PCP - General Family Medicine 12/31/20 Rodolfo Mantilla MD [address] [place] [address] Consulting Physician Neurology 12/21/19 documented as of this encounter
--- OUTSIDE RECORDS SUMMARY | 2024-10-31 03:50 | XMS_ITS | Encounter Summary ---
Author Organization [facility] Address [address] [place] [address] Phone Care Team Providers Care Derrickman Helper Name Role Phone Rodolfo Mantilla MD Unavailable Sabrina Ruffin MD Primary Care Provider Encounter Details Date Type Department Care Team (Late st Contact Info) Description 07/06/2023 Telephone [facility] Neurosurgery [address] [facility] 6th [place] [address] [place] [address] Leobardo Perez MD [address] [place] [address] Social History Tobacco Use Types [...] on file 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 Given her new headaches I had the patient undergo a head CT. Given that this this is normal, I offered a referral to neurology which the patient refused at this time. She will follow up with her PCP for workup. * Telephone Encounter - Hawa Crowell CMA - 07/06/2023 10:40 AM CDT Pt had appt with AN 07/02/23, and CT head after appt, pt is calling for results of CT, please advise. documented in this encounter Plan of Treatment Not on file documented as of this encounter Visit Diagnoses Not on filedocumented in this encounter Care Teams Derrickman Helper Relationship Specialty Start Date End Date Sabrina Ruffin MD [address] [place] [address] PCP - General Family Medicine 12/31/20 Rodolfo Mantilla MD [address] [place] [address] Consulting Physician Neurology 12/21/19 documented as of this encounter
--- OUTSIDE RECORDS SUMMARY | 2024-10-31 03:50 | XMS_ITS | Encounter Summary ---
Author Organization [facility] Address [address] [place] [address] Phone Care Team Providers Care Supercalender Operator Name Role Phone Rodolfo Mantilla MD Unavailable Sabrina Ruffin MD Primary Care Provider Encounter Details Date Type Department Care Team (Late st Contact Info) Description 01/01/2021 Telephone [facility] [address] [facility] [address] [place] [address] Kelli Larsen Social History Tobacco Use Types Packs/Day Years Used Date Smoking Tobacco: Former Cigarettes Q uit: 07/27/1970 Smokeless Tobacco: Never Alcohol Use Standard Drinks/Week Comments Yes 1 (1 standard drink = 0.6 oz pur e alcohol) Comments No Sex and Gender Information Value Date Recorded Sex Assigned at Not on file 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 Gender Identity Not on file Sexual Orientation Not on file Occupation Industry Job Start Date Job End Date retired Not on file Not on file Not on file documented as of this encounter Miscellaneous Notes * Telephone Encounter - Abbey Moon RMA - 05/27/2021 5:24 PM CDT Called patient and LM for the patient informing her of the appointment change Patient is schedule on 08/29 with arrival time 930 for HCT and the appointment will follow up with the QA ARCHITECT Office number left for the patient to call the office back to confirm appointment details and they will also be mailed to the patient home * Telephone Encounter - Kelli Larsen - 01/01/2021 8:36 AM CST 6m 07/09/21 CT 1:30pm arrival Fu w ek 3:30pm CT and appt reminder sent w date, locations, and early arrival time noted. NG ROOM WORKER documented in this encounter Plan of Treatment Not on file documented as of this encounter Visit Diagnoses Not on filedocumented in this encounter Care Teams Supercalender Operator Relationship Specialty Start Date End Date Sabrina Ruffin MD [address] [facility] [address] [facility] [address] [place] [address] PCP - General Family Medicine 12/31/20 Rodolfo Mantilla MD [address] [place] [address] Consulting Physician Neurology 12/21/19 documented as of this encounter
--- OUTSIDE RECORDS SUMMARY | 2024-10-31 03:50 | XMS_ITS | Encounter Summary ---
Author Organization [facility] Address [address] [place] [address] Phone Care Team Providers Care Precinct Commanding Officer Name Role Phone Rodolfo Mantilla MD Unavailable Sabrina Ruffin MD Primary Care Provider Encounter Details Date Type Department Care Team (Late st Contact Info) Description 09/03/2021 Telephone [facility] Neurosurgery [address] [facility] 6th [place] [address] [place] [address] Gera Yang Social History Tobacco Use Types [...] on file 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 CT scheduled for 06/02/22 with 8:50 am arrival time on CAM, 10:45 am f/u with Cindy Pt is aware and agrees to appt. RVENTIONAL CARDIOLOGIST documented in this encounter Plan of Treatment Not on file documented as of this encounter Visit Diagnoses Not on filedocumented in this encounter Care Teams Precinct Commanding Officer Relationship Specialty Start Date End Date Sabrina Ruffin MD [address] [place] [address] PCP - General Family Medicine 12/31/20 Rodolfo Mantilla MD [address] [place] [address] Consulting Physician Neurology 12/21/19 documented as of this encounter
--- OUTSIDE RECORDS SUMMARY | 2024-10-31 03:50 | XMS_ITS | Encounter Summary ---
Author Organization [facility] Address [address] [place] [address] Care Team Providers Care Stamping Machine Operator Name Role Phone Rodolfo Mantilla MD Unavailable Sabrina Ruffin MD Primary Care Provider Reason for Referral * MRI/CAT/PET Scan (Routine) - Closed Specialty Diagnoses / Procedures Referred By Contac t Referred To Contact Radiology Diagnoses Low back pain, unspecified Procedures MRI Lumbar Spine WO Contrast Jory Aguero NP [address] [place] [address] Phone: tel: fax: [address] [phone] Referral ID Status Reason Start Date Expiration Date Visits Re quested Visits Authorized [id number] Closed 02/17/2022 03/19/2023 1 1 Reason for Visit * MRI/CAT/PET Scan (Routine) - Closed Specialty Diagnoses / Procedures Referred By Contac t Referred To Contact Radiology Diagnoses Low back pain, unspecified Procedures MRI Lumbar Spine WO Contrast Jory Aguero NP [address] [place] [address] Phone: tel: fax: [address] [phone] Referral ID Status Reason Start Date Expiration Date Visits Re quested Visits Authorized [id number] Closed 02/17/2022 03/19/2023 1 1 Encounter Details Date Type Department Care Team (Latest Contact Info) Description 06/05/2022 8:57 AM CDT - 06/05/2022 11:59 PM CDT Hospital Encounter [facility] [address] [place] [address] Low back pain, unspecified Discharge Disposition: Discharge to home or self [...] on file 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 Gender Identity Not on file Sexual Orientation Not on file Occupation Industry Job Start Date Job End Date retired Not on file Not on file Not on file documented as of this encounter Medications at Time of Discharge acetaminophen (TYLENOL) 325 mg tabletIndication s:Pain Take 2 tablets (650 mg total) by mouth every 4 (four) hours as needed for pain 30 tablet 07/28/2020 atorvastatin (LIPITOR) 10 mg tablet Take 10 mg by mouth nightly 02/28/2022 fluticasone propionate (FLONASE) 50 mcg/actuation nasal spray Administer 1 spray into each nostril daily 03/03/2022 HYDROcodone-acet aminophen (NORCO) 5-325 mg per tablet Take 1 tablet by mouth every 8 (eight) hours as needed 04/21/2022 levothyroxine (SYNTHROID, LEVOTHROID) 100 mcg tablet Take [...] 3 (three) times a day 180 capsule 06/02/2022 3 documented as of this encounter Discharge Disposition Disposition Code Departure Means Destination Discharge to home or self care documented in this encounter Plan of Treatment Not on file documented as of this encounter Procedures Procedure Name Priority Date/Time Associated Diagnosis Comments MRI LUMBAR SPINE WO CONTRAST Schedule Routine, Read Routine (OP Routine) 06/05/2022 10:16 AM CDT Low back pain, unspecified documented in this encounter Results * MRI Lumbar Spine WO Contrast (06/05/2022 10:16 AM CDT) Anatomical Region Laterality Modality Spine N/A Magnetic Resonan ce 06/05/2022 11:2 4 AM CDT Impressions 06/05/2022 2:46 PM CDT 1. ??Compression deformity T12 with increased marrow edema and new marrow edema of the subjacent L1 vertebral body extending into the right-sided posterior elements along the concavity of scoliotic curvature. 2. Progressive degenerative change of the remaining lumbar spine with multilevel neuroforaminal and canal stenosis as above. Dictated by: Chaitanya Garcia M.D. The radiology attending physician has personally reviewed this study, and had reviewed and/or edited this written report and agrees with it. Electronically signed by: Jayro Romero M.D. Narrative 06/05/2022 2:46 PM CDT EXAMINATION: Magnetic resonance imaging (MRI) of the lumber spine without contrast. 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 Low back pain. TECHNIQUE: Multiplanar multi-weighted MRI of the lumbar spine was performed without intravenous contrast using the standard lumbar spine protocol. COMPARISON: MRI 10/13/2018. FINDINGS: There is mild retrolisthesis of L2 on L3 and L3 and L4. There is progressive multilevel degenerative disc disease severe spanning T10-L1 and L3-S1. There is complete disc space height loss and noninstrumented ankylosis of L5-S1. There is a compression deformity of T12 with approximately 35% anterior height loss. There is susceptibility related to vertebral augmentation at T12. ??There is progressed disc space height loss at T12-L1 with disc vacuum phenomenon. ??There is mild compression deformity of L1. ??There is T1 hypointense, STIR hyperintense marrow replacing signal of the T12 and L1 vertebral bodies that extend into the right-sided posterior elements on the concavity of scoliotic curvature; this finding is progressed in T12 and new in L1. ??The previously identified marrow edema at the L3-L4 level has improved. ??There is multilevel Schmorl's nodes and Modic type endplate changes of the remaining vertebrae. The conus medullaris terminates at the level of L1-L2. The distal spinal cord signal intensity is normal. Right renal cyst. There is atrophy of the paraspinal musculature. T12-L1: Diffuse disc bulge asymmetric to the right. There is moderate right and mild left facet arthropathy with infolding of the ligamentum flavum. There is severe right and moderate left neuroforaminal stenosis. There is moderate spinal canal stenosis. L1-L2: Diffuse disc bulge with superimposed left foraminal protrusion. There is severe left and moderate right facet arthropathy with infolding of the ligamentum flavum. There is severe left and mild right neuroforaminal stenosis. There is prominent epidural fat with mild spinal canal stenosis. L2-L3: ??Diffuse disc bulge. There is severe left and moderate right facet arthropathy with infolding of the ligamentum flavum. There is severe left and moderate right neuroforaminal stenosis. There is prominent epidural fat laterally with mild spinal canal stenosis. L3-L4: ??Diffuse disc bulge with superimposed central protrusion. There is moderate bilateral facet arthropathy with infolding of the ligamentum flavum. There is moderate bilateral neuroforaminal stenosis. There is moderate spinal canal stenosis and moderate right lateral recess stenosis. L4-L5: ??Diffuse disc bulge with superimposed central protrusion and mild inferior extrusion. There is moderate bilateral facet arthropathy with infolding of the ligamentum flavum. There is moderate bilateral neuroforaminal stenosis. There is mild spinal canal stenosis. L5-S1: ??Diffuse disc bulge with central protrusion. There is mild facet arthropathy. There is moderate bilateral neuroforaminal stenosis. There is no spinal canal stenosis Procedure Note Jayro Romero MD - 06/05/2022 EXAMINATION: Magnetic resonance imaging (MRI) of the lumber spine without contrast. 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 Low back pain. TECHNIQUE: Multiplanar multi-weighted MRI of the lumbar spine was performed without intravenous contrast using the standard lumbar spine protocol. COMPARISON: MRI 10/13/2018. FINDINGS: There is mild retrolisthesis of L2 on L3 and L3 and L4. There is progressive multilevel degenerative disc disease severe spanning T10-L1 and L3-S1. There is complete disc space height loss and noninstrumented ankylosis of L5-S1. There is a compression deformity of T12 with approximately 35% anterior height loss. There is susceptibility related to vertebral augmentation at T12. There is progressed disc space height loss at T12-L1 with disc vacuum phenomenon. There is mild compression deformity of L1. There is T1 hypointense, STIR hyperintense marrow replacing signal of the T12 and L1 vertebral bodies that extend into the right-sided posterior elements on the concavity of scoliotic curvature; this finding is progressed in T12 and new in L1. The previously identified marrow edema at the L3-L4 level has improved. There is multilevel Schmorl's nodes and Modic type endplate changes of the remaining vertebrae. The conus medullaris terminates at the level of L1-L2. The distal spinal cord signal intensity is normal. Right renal cyst. There is atrophy of the paraspinal musculature. T12-L1: Diffuse disc bulge asymmetric to the right. There is moderate right and mild left facet arthropathy with infolding of the ligamentum flavum. There is severe right and moderate left neuroforaminal stenosis. There is moderate spinal canal stenosis. L1-L2: Diffuse disc bulge with superimposed left foraminal protrusion. There is severe left and moderate right facet arthropathy with infolding of the ligamentum flavum. There is severe left and mild right neuroforaminal stenosis. There is prominent epidural fat with mild spinal canal stenosis. L2-L3: Diffuse disc bulge. There is severe left and moderate right facet arthropathy with infolding of the ligamentum flavum. There is severe left and moderate right neuroforaminal stenosis. There is prominent epidural fat laterally with mild spinal canal stenosis. L3-L4: Diffuse disc bulge with superimposed central protrusion. There is moderate bilateral facet arthropathy with infolding of the ligamentum flavum. There is moderate bilateral neuroforaminal stenosis. There is moderate spinal canal stenosis and moderate right lateral recess stenosis. L4-L5: Diffuse disc bulge with superimposed central protrusion and mild inferior extrusion. There is moderate bilateral facet arthropathy with infolding of the ligamentum flavum. There is moderate bilateral neuroforaminal stenosis. There is mild spinal canal stenosis. L5-S1: Diffuse disc bulge with central protrusion. There is mild facet arthropathy. There is moderate bilateral neuroforaminal stenosis. There is no spinal canal stenosis IMPRESSION: 1. Compression deformity T12 with increased marrow edema and new marrow edema of the subjacent L1 vertebral body extending into the right-sided posterior elements along the concavity of scoliotic curvature. 2. Progressive degenerative change of the remaining lumbar spine with multilevel neuroforaminal and canal stenosis as above. Dictated by: Chaitanya Garcia M.D. The radiology attending physician has personally reviewed this study, and had reviewed and/or edited this written report and agrees with it. Electronically signed by: Jayro Romero M.D. Jory Aguero CAPONIZER IMG MRI PROCEDURES Final Resu lt documented in this encounter Visit Diagnoses Diagnosis Low back pain, unspecified documented in this encounter Care Teams Stamping Machine Operator Relationship Specialty Start Date End Date Sabrina Ruffin MD [address] [address] PCP - General Family Medicine 12/31/20 Rodolfo Mantilla MD [address] [place] [address] Consulting Physician Neurology 12/21/19 documented as of this encounter
--- OUTSIDE RECORDS SUMMARY | 2024-10-31 03:50 | XMS_ITS | Encounter Summary ---
Author Organization [facility] Address [address] [place] [address] Phone Care Team Providers Care Scientific Manager Name Role Phone Rodolfo Mantilla MD Unavailable Sabrina Ruffin MD Primary Care Provider Reason for Referral * MRI/CAT/PET Scan (Routine) - Closed Specialty Diagnoses / Procedures Referred By Contac t Referred To Contact Radiology Diagnoses NPH (normal pressure hydrocephalus) (HCC) Procedures CT Head WO Contrast Cindy Nelson NP Phone: tel: fax: [address] [phone] Referral ID Status Reason Start Date Expiration Date Visits Re quested Visits Authorized [id number] Closed 09/02/2021 10/02/2022 1 1 T MIXER MACHINE Encounter Details Date Type Department Care Team (Late st Contact Info) Description 09/02/2021 Orders Only [facility] Neurosurgery [address] [facility] Advanced Medicine 6th [place] [address] [place] [address] Cindy Nelson NP [address] [facility] [address] [place] [address] NPH (normal pressure hydrocephalus) (CMS/HCC) (HCC) (Primary [...] on file 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 ?? Stable shunt catheter and mild ventriculomegaly. Electronically signed by: Pritesh Yang Narrative 09/03/2021 10:43 AM PAINT MIXER MACHINE EXAMINATION: CT head without contrast HISTORY: Dizziness, concern for subdural hemorrhage. TECHNIQUE: Noncontrast CT of the brain was performed with images acquired from skull base to vertex. COMPARISON: Head CT dated 08/29/2021. FINDINGS: There is a right occipital approach shunt catheter which terminates in the left lateral ventricle, unchanged. ??Intracranial atherosclerosis is noted. Topogram demonstrates no lytic [...] normal. No fractures are identified. Procedure Note Pritesh Yang MD PhD - 09/03/2021 EXAMINATION: CT head without contrast HISTORY: Dizziness, concern for subdural hemorrhage. TECHNIQUE: Noncontrast CT of the brain was performed with images acquired from skull base to vertex. COMPARISON: Head CT dated 08/29/2021. FINDINGS: There is a right occipital approach [...] are normal. No fractures are identified. IMPRESSION: No acute intracranial abnormality. Stable shunt catheter and mild ventriculomegaly. Electronically signed by: Pritesh Yang Cindy Nelson NP IMG CT PROCEDURES Final Resul t documented in this encounter Visit Diagnoses Diagnosis NPH (normal pressure hydrocephalus) (HCC)- Primary Idiopathic normal pressure hydrocephalus (INPH) NPH (normal pressure hydrocephalus) (HCC) Idiopathic normal pressure hydrocephalus (INPH) documented in this encounter Care Teams Scientific Manager Relationship Specialty Start Date End Date Sabrina Ruffin MD [address] [facility] [address] [place] [address] PCP - General Family Medicine 12/31/20 Rodolfo Mantilla MD [address] [place] [address] Consulting Physician Neurology 12/21/19 documented as of this encounter
--- OUTSIDE RECORDS SUMMARY | 2024-10-31 03:50 | XMS_ITS | Encounter Summary ---
Author Organization [facility] Address [address] [place] [address] Phone Care Team Providers Care Career Services Assistant Name Role Phone Rodolfo Mantilla MD Unavailable Sabrina Ruffin MD Primary Care Provider Encounter Details Date Type Department Care Team (Late st Contact Info) Description 07/02/2023 Telephone [facility] Neurosurgery [address] [facility] Advanced Medicine 6th [place] [address] [place] [address] Pati Odell, BE [address] [place] [address] Social History Tobacco Use Types [...] on file 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 Gender Identity Not on file Sexual Orientation Not on file Occupation Industry Job Start Date Job End Date retired Not on file Not on file Not on file documented as of this encounter Miscellaneous Notes * Telephone Encounter - Enma Melgar RN - 07/02/2023 4:13 PM CDT Appt scheduled will mail reminder, mychart sent * Telephone Encounter - Pati Odell NP - 07/02/2023 1:16 PM CDT Follow up in 1 year with no new imaging documented in this encounter Plan of Treatment Not on file documented as of this encounter Visit Diagnoses Not on filedocumented in this encounter Care Teams Career Services Assistant Relationship Specialty Start Date End Date Sabrina Ruffin MD [address] [facility] [address] [place] [address] PCP - General Family Medicine 12/31/20 Rodolfo Mantilla MD [address] [place] [address] Consulting Physician Neurology 12/21/19 documented as of this encounter
--- OUTSIDE RECORDS SUMMARY | 2024-10-31 03:50 | XMS_ITS | Encounter Summary ---
Author Organization [facility] Address [address] [place] [address] Care Team Providers Care Body Masker Name Role Phone Rodolfo Mantilla MD Unavailable Sabrina Ruffin MD Primary Care Provider Reason for Referral * Diagnostic Imaging (Routine) - Closed Specialty Diagnoses / Procedures Referred By Jonyac t Referred To Contact Radiology Diagnoses NPH (normal pressure hydrocephalus) (HCC) Procedures CT Head WO Contrast Cindy Nelson NP Phone: tel: fax: [address] [phone] Referral ID Status Reason Start Date Expiration Date Visits Re quested Visits Authorized [id number] Closed 12/31/2020 01/30/2022 1 1 Reason for Visit * Diagnostic Imaging (Routine) - Closed Specialty Diagnoses / Procedures Referred By Devin laboy Referred To Contact Radiology Diagnoses NPH (normal pressure hydrocephalus) (HCC) Procedures CT Head WO Contrast Cindy Nelson NP Phone: tel: fax: [address] [phone] Referral ID Status Reason Start Date Expiration Date Visits Re quested Visits Authorized [id number] Closed 12/31/2020 01/30/2022 1 1 Encounter Details Date Type Department Care Team (Latest Contact Info) Description 08/29/2021 9:28 AM CDT - 08/29/2021 11:59 PM CDT Hospital Encounter [facility] [address] [place] [address] Randy Valencia MD [address] [place] [address] DR DEPT NEUROSURGERY, [address] [address] Cindy Nelson NP [address] [address] NPH (normal pressure hydrocephalus) (CMS/HCC) ([facility]) Discharge Disposition: Discharge to home or self [...] on file 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 5 08/08/2018 methocarbamoL (ROBAXIN) 500 mg tablet Take 500 mg by mouth 2 (two) times a day 07/30/2021 metoprolol XL (TOPROL-XL) 50 mg 24 hr tablet Take 50 mg by mouth daily. morphine ER (MS CONTIN) 15 mg 12 hr tablet Take 15 mg by mouth 2 (two) times a day valsartan (DIOVAN) 160 mg tablet Take 160 mg by mouth daily gabapentin (NEURONTIN) 300 mg capsule Take 600 mg by mouth 2 (two) times a day 06/02/2022 hydroCHLOROthiazi de (HYDRODIURIL) 12.5 mg tablet Take 12.5 mg by mouth daily 04/20/2020 09/03/2021 documented as of this encounter Discharge Disposition Disposition Code Departure Means Destination Discharge to home or self care documented in this encounter Plan of Treatment Not on file documented as of this encounter Procedures Procedure Name Priority Date/Time Associated Diagnosis Comments CT HEAD WO CONTRAST Schedule Routine, Read Routine (OP Routine) 08/29/2021 10:47 AM CDT NPH (normal pressure hydrocephalus) (CMS/HCC) (HCC) documented in this encounter Results * CT Head WO Contrast (08/29/2021 10:47 AM CDT) Anatomical Region Laterality Modality Head and Neck N/A Computed Tomogra phy 08/29/2021 2:10 PM CDT Impressions 08/29/2021 4:19 PM CDT Right parietal approach ventricular shunt catheter with unchanged moderate lateral and third ventricular enlargement. Dictated by: Randy Mancini M.D. The radiology attending physician has personally reviewed this study, and had reviewed and/or edited this written report and agrees with it. Electronically signed by: Yamileth Cortez M.D. Narrative 08/29/2021 4:19 PM CDT EXAMINATION: CT head without contrast HISTORY: Normal pressure hydrocephalus. TECHNIQUE: Noncontrast CT of the brain was performed with images acquired from skull base to vertex. COMPARISON: 12/31/2020. FINDINGS: Unchanged position of a right parietal approach [...] normal. No fractures are identified. Procedure Note Yamileth Cortez MD - 08/29/2021 EXAMINATION: CT head without contrast HISTORY: Normal pressure hydrocephalus. TECHNIQUE: Noncontrast CT of the brain was performed with images acquired from skull base to vertex. COMPARISON: 12/31/2020. FINDINGS: Unchanged position of a right parietal approach [...] are normal. No fractures are identified. IMPRESSION: Right parietal approach ventricular shunt catheter with unchanged moderate lateral and third ventricular enlargement. Dictated by: Randy Mancini M.D. The radiology attending physician has personally reviewed this study, and had reviewed and/or edited this written report and agrees with it. Electronically signed by: Yamileth Cortez M.D. Cindy Nelson TANNING SOLUTION MAKER IMG CT PROCEDURES Final Resul t documented in this encounter Visit Diagnoses Diagnosis NPH (normal pressure hydrocephalus) (HCC) Idiopathic normal pressure hydrocephalus (INPH) documented in this encounter Care Teams Body Masker Relationship Specialty Start Date End Date Sabrina Ruffin MD [address] [place] [address] PCP - General Family Medicine 12/31/20 Rodolfo Mantilla MD [address] [place] [address] Consulting Physician Neurology 12/21/19 documented as of this encounter
--- OUTSIDE RECORDS SUMMARY | 2024-10-31 03:50 | XMS_ITS | Encounter Summary ---
Author Organization [facility] Address [address] [place] [address] Phone Care Team Providers Care Dean Of Admissions Name Role Phone Rodolfo Mantilla MD Unavailable Sabrina Ruffin MD Primary Care Provider Encounter Details Date Type Department Care Team (Latest Contact Info) Description 07/02/2023 10:45 AM CDT Office Visit [facility] [address] [facility] Advanced Medicine 6th [place] [address] [place] [address] Pati Odell NP [address] [place] [address] Ventriculopleural shunt status (Primary Dx) Social History Tobacco Use Types [...] on file 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 Perez.Her gait abnormalities, urinary incontinence, and memory loss [...] dizziness, seizures, visual changes, or bowel incontinence. Allergies Allergen Reactions Celebrex [Celecoxib] Nausea only Sulfa (Sulfonamide Antibiotics) Other (See comments) and Unknown Reaction: Current Outpatient Medications on File Prior to Visit Medication Sig Dispense Refill acetaminophen (TYLENOL) 325 mg tablet Take 2 tablets (650 mg total) by mouth every 4 (four) hours as needed for pain 30 tablet atorvastatin (LIPITOR) 10 mg tablet Take 10 mg by mouth nightly fluticasone propionate (FLONASE) 50 mcg/actuation nasal spray Administer 1 spray into each nostril daily (Patient not taking: No sig reported) gabapentin (NEURONTIN) 300 mg capsule Take 2 capsules (600 mg total) by mouth 3 (three) times a [id number] capsule 11 hydroCHLOROthiazide (HYDRODIURIL) 25 mg tablet Take 25 mg by mouth daily HYDROcodone-acetaminophen (NORCO) 5-325 mg per tablet Take 1 tablet by mouth every 8 (eight) hours as needed (Patient not taking: No sig reported) ibuprofen (ADVIL,MOTRIN) 400 mg tablet ONE TABLET BY MOUTH EVERY 6 HOURS NEEDED FOR PAIN OR FEVER levothyroxine (SYNTHROID, LEVOTHROID) 100 mcg tablet Take 100 mcg by mouth daily. 5 methocarbamoL (ROBAXIN) 500 mg tablet Take 500 mg by mouth 2 (two) times a day metoprolol XL (TOPROL-XL) 50 mg 24 hr tablet Take 50 mg by mouth daily. morphine ER (MS CONTIN) 15 mg 12 hr tablet Take 15 mg by mouth 2 (two) times a day (Patient not taking: No sig reported) nitroglycerin (NITROSTAT) 0.4 mg SL tablet 0.4 mg QUEtiapine (SEROquel) 25 mg tablet Take 25 mg by mouth daily valsartan (DIOVAN) 160 mg tablet Take 160 mg by mouth daily valsartan-hydrochlorothiazide (DIOVAN-HCT) 320-12.5 mg per tablet Take 1 tablet by mouth daily No current facility-administered medications on file prior to visit. Past Medical History: Diagnosis Date Anemia Arthritis Blood clot associated with vein wall inflammation Cataract Depression Diabetes mellitus (HCC) History of transfusion Hypertension Osteopenia PONV (postoperative nausea and vomiting) Thalassemia minor Thyroid disease hypothyroidism Past Surgical History: Procedure Laterality Date CARPAL TUNNEL RELEASE bilat. CHOLECYSTECTOMY HYSTERECTOMY KNEE ARTHROSCOPY bilat. knee replacement LUMBAR PUNCTURE WO INJECTION, DIAGNOSTIC N/A 07/24/2020 REMOVE VENA CAVA FILTER N/A 05/21/2018 REPLACEMENT TOTAL KNEE Bilateral THYROIDECTOMY, PARTIAL VITAL SIGNS There were no vitals filed for this visit. REVIEW OF SYSTEMS Review of Systems Musculoskeletal: Negative for gait problem. Neurological: Positive for headaches. Negative for dizziness, seizures, speech difficulty, weakness, light-headedness and numbness. PHYSICAL EXAM: On the exam, She is awake, alert and oriented x4. Pupils are equal and round, extraocular movementsare intact. Cranial nerve exam is intact. No pronator drift. She moves all extremities with equal strength. Sensation intact to light touch. Gait was slowed, aided by a cane, difficulty standing up from chair likely related to muscle weakness. REVIEW OF IMAGING: I have personally reviewed the CT done today which showed the following: FINDINGS: Again seen is a right parietal approach ventricular catheter which crosses the midline and terminates in the region of the body of the left lateral ventricle. Visualized portions of the catheter appear intact. There is continued mild lateral and 3rd ventricular enlargement, grossly unchanged. Thereis no acute intracranial hemorrhage No mass effect or midline shift is present. The figueroa- white matter differentiation is normal. The visualized portions of the orbits are normal. The visualized portions of the mastoids are normal. The visualized portions of the paranasal sinuses are normal. No fractures are identified. IMPRESSION: 1. Right parietal approach shunt catheter with unchanged mild lateral and 3rd ventriculomegaly. ASSESSMENT AND PLAN: Jonnie Alex is a 77 y.o. female who presents [...] sooner with any new or worsening symptoms. Pati Odell DNP, FURNITURE SERVICER, BUILDING CLEANING SUPERVISOR-C Neurosurgery documented in this encounter Plan of Treatment Not on file documented as of this encounter Visit Diagnoses Diagnosis Ventriculopleural shunt status- Primary documented in this encounter Historical Medications * This list may reflect changes made after this encounter. dicyclomine (BENTYL) 10 mg capsule TAKE 1 CAPSULE BY MOUTH THREE TIMES DAILY NEEDED FOR ABDOMINAL PAIN 06/28/2023 cyclobenzaprine (FLEXERIL) 5 mg tablet Take 1 tablet (5 mg total) by mouth 3 (three) times a day 04/02/2023 guaiFENesin-code ine (GUAITUSS AC) liquid 100-10 mg/5 mL TAKE 5 ML BY MOUTH EVERY 6 HOURS 06/08/2023 cephalexin (KEFLEX) 500 mg capsule TAKE 1 CAPSULE BY MOUTH EVERY 12 HOURS FOR 10 DAYS 04/02/2023 benzonatate (TESSALON) 100 mg capsule TAKE 2 CAPSULES BY MOUTH THREE TIMES DAILY NEEDED FOR COUGH 04/20/2023 amLODIPine (NORVASC) 5 mg tablet Take 1 tablet (5 mg total) by mouth daily 05/22/2023 albuterol HFA (PROVENTIL HFA,VENTOLIN HFA,PROAIR HFA) 90 mcg/actuation inhaler INHALE 1 PUFF BY MOUTH EVERY 4 HOURS NEEDED FOR SHORTNESS OF BREATH OR WHEEZING 04/20/2023 added in this encounter Care Teams Dean Of Admissions Relationship Specialty Start Date End Date Sabrina Ruffin MD [address] [facility] [address] [place] [address] PCP - General Family Medicine 12/31/20 Rodolfo Mantilla MD [address] [place] [address] Consulting Physician Neurology 12/21/19 documented as of this encounter
--- OUTSIDE RECORDS SUMMARY | 2024-10-31 03:50 | XMS_ITS | Encounter Summary ---
Author Organization [facility] of [facility] Address [address] [place] [address] Phone Care Team Providers Care Business Solutions Director Name Role Phone Rodolfo Mantilla MD Unavailable Sabrina Ruffin MD Primary Care Provider Encounter Details Date Type Department Care Team (Late st Contact Info) Description 06/17/2023 Telephone [facility] [address] [facility] Advanced Medicine 6th [place] [address] [place] [address] Pearl Braswell, CONCRETE HOPPER OPERATOR [address] [place] [address] Social History Tobacco Use Types [...] on file 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 documented in this encounter Plan of Treatment Not on file documented as of this encounter Visit Diagnoses Not on filedocumented in this encounter Care Teams Business Solutions Director Relationship Specialty Start Date End Date Sabrina Ruffin MD [address] [facility] [address] [place] [id number] PCP - General Family Medicine 12/31/20 Rodolfo Mantilla MD [address] [place] [address] Consulting Physician Neurology 12/21/19 documented as of this encounter
--- OUTSIDE RECORDS SUMMARY | 2024-10-31 03:50 | XMS_ITS | Encounter Summary ---
Author Organization [facility] Address [address] [place] [address] Care Team Providers Care Mink Rancher Name Role Phone Rodolfo Mantilal MD Unavailable Sabrina Ruffin MD Primary Care Provider Reason for Referral * MRI/CAT/PET Scan (Routine) - Closed Specialty Diagnoses / Procedures Referred By Devin t Referred To Contact Radiology Diagnoses NPH (normal pressure hydrocephalus) (HCC) Ventriculopleural shunt status Procedures CT Head WO Contrast Estefania Murphy NP Phone: tel: fax: [address] [phone] Referral ID Status Reason Start Date Expiration Date Visits Re quested Visits Authorized [id number] Closed 08/29/2021 09/28/2022 1 1 Reason for Visit * MRI/CAT/PET Scan (Routine) - Closed Specialty Diagnoses / Procedures Referred By Devin laboy Referred To Contact Radiology Diagnoses NPH (normal pressure hydrocephalus) (HCC) Ventriculopleural shunt status Procedures CT Head WO Contrast Estefania Murphy NP Phone: tel: fax: [address] [phone] Referral ID Status Reason Start Date Expiration Date Visits Re quested Visits Authorized [id number] Closed 08/29/2021 09/28/2022 1 1 Encounter Details Date Type Department Care Team (Latest Contact Info) Description 06/02/2022 9:13 AM CDT - 06/02/2022 11:59 PM CDT Hospital Encounter [facility] [address] [place] [address] Estefania Murphy NP [address] [facility] [address] [place] [address] NPH (normal pressure hydrocephalus) (HCC); Ventriculopleural shunt status Discharge Disposition: Discharge to home or self [...] on file 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 Estefania Murphy EDUCATIONAL PSYCHOLOGY TEACHER IMG CT PROCEDURES Final Re sult documented in this encounter Visit Diagnoses Diagnosis NPH (normal pressure hydrocephalus) (HCC) Idiopathic normal pressure hydrocephalus (INPH) Ventriculopleural shunt status documented in this encounter Care Teams Mink Rancher Relationship Specialty Start Date End Date Sabrina Ruffin MD [address] [place] [address] PCP - General Family Medicine 12/31/20 Rodolfo Mantilla MD [address] [place] [address] Consulting Physician Neurology 12/21/19 documented as of this encounter
--- OUTSIDE RECORDS SUMMARY | 2024-10-31 03:50 | XMS_ITS | Encounter Summary ---
Author Organization [facility] Address [address] [place] [address] Care Team Providers Care Box Coverer Hand Name Role Phone Rodolfo Mantilla MD Unavailable Sabrina Ruffin MD Primary Care Provider Reason for Referral * MRI/CAT/PET Scan (Routine) - Closed Specialty Diagnoses / Procedures Referred By Contac t Referred To Contact Radiology Diagnoses NPH (normal pressure hydrocephalus) (HCC) Procedures CT Head WO Contrast Cindy Nelson NP Phone: tel: fax: [address] [phone] Referral ID Status Reason Start Date Expiration Date Visits Re quested Visits Authorized [id number] Closed 09/02/2021 10/02/2022 1 1 S CLIPPER Reason for Visit * MRI/CAT/PET Scan (Routine) - Closed Specialty Diagnoses / Procedures Referred By Contac t Referred To Contact Radiology Diagnoses NPH (normal pressure hydrocephalus) (HCC) Procedures CT Head WO Contrast Cindy Nelson NP Phone: tel: fax: [address] [phone] Referral ID Status Reason Start Date Expiration Date Visits Re quested Visits Authorized [id number] Closed 09/02/2021 10/02/2022 1 1 Encounter Details Date Type Department Care Team (Latest Contact Info) Description 09/03/2021 9:16 AM PRESS CLIPPER - 09/03/2021 11:59 PM PRESS CLIPPER Hospital Encounter [facility] [address] [place] [address] Cindy Nelson NP [address] [address] NPH (normal pressure hydrocephalus) (CMS/HCC) ([facility]) Discharge Disposition: Discharge to home or self [...] on file Legal Sex Female 1:04 AM PRESS CLIPPER Gender Identity Not on file Sexual Orientation [...] mouth 2 (two) times a day 06/02/2022 documented as of this encounter Discharge Disposition Disposition Code Departure Means Destination Discharge to home or self care documented in this encounter Plan of Treatment Not on file documented as of this encounter Procedures Procedure Name Priority Date/Time Associated Diagnosis Comments CT HEAD WO CONTRAST Schedule Routine, Read Routine (OP Routine) 09/03/2021 10:36 AM PRESS CLIPPER NPH (normal pressure hydrocephalus) (CMS/HCC) (HCC) documented in this encounter Results * CT Head WO Contrast (09/03/2021 10:36 AM PRESS CLIPPER) Anatomical Region Laterality Modality Head and Neck N/A Computed Tomogra phy 09/03/2021 10:4 3 AM PRESS CLIPPER Impressions 09/03/2021 10:43 AM PRESS CLIPPER No acute intracranial abnormality. ?? Stable shunt catheter and mild ventriculomegaly. Electronically signed by: Pritesh Yang Narrative 09/03/2021 10:43 AM PRESS CLIPPER EXAMINATION: CT head without contrast HISTORY: Dizziness, [...] Electronically signed by: Pritesh Yang Cindy Nelson PROJECT ENG IMG CT PROCEDURES Final Resul t documented in this encounter Visit Diagnoses Diagnosis NPH (normal pressure hydrocephalus) (HCC) Idiopathic normal pressure hydrocephalus (INPH) documented in this encounter Care Teams Box Coverer Hand Relationship Specialty Start Date End Date Sabrina Ruffin MD [address] [place] [address] PCP - General Family Medicine 12/31/20 Rodolfo Mantilla MD [address] [place] [address] Consulting Physician Neurology 12/21/19 documented as of this encounter
--- OUTSIDE RECORDS SUMMARY | 2024-10-31 03:50 | XMS_ITS | Encounter Summary ---
Author Organization [facility] Address [address] [place] [address] Phone Care Team Providers Care Annealing Furnace Operator Name Role Phone Rodolfo Mantilla MD Unavailable Sabrina Ruffin MD Primary Care Provider Encounter Details Date Type Department Care Team (Late st Contact Info) Description 09/02/2021 Telephone [facility] Neurosurgery [address] [facility] [address] [place] [address] Cindy Nelson, BE [facility] [address] [address] Social History Tobacco Use Types Packs/Day Years [...] on file 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 She tells me she is having dizziness especially in the mornings inside adjusted her shunt. I will have her come in tomorrow to see me with a head CT before. The appointment has beenscheduled in the patient was notified. S ARCHITECT * Telephone Encounter - Martita Bustos - 09/02/2021 2:15 PM CST Pt called, she is concerned that her shunt was adjust too far. She is having dizziness, balance issues, and headaches. She feels off and would like to know if she can have someone call her or does she need to come intothe office ?? Please advise. S ARCHITECT documented in this encounter Plan of Treatment Not on file documented as of this encounter Visit Diagnoses Not on filedocumented in this encounter Care Teams Annealing Furnace Operator Relationship Specialty Start Date End Date Sabrina Ruffin MD [address] [facility] [address] [place] [address] PCP - General Family Medicine 12/31/20 Rodolfo Mantilla MD [address] [place] [address] Consulting Physician Neurology 12/21/19 documented as of this encounter
--- OUTSIDE RECORDS SUMMARY | 2024-10-31 03:50 | XMS_ITS | Encounter Summary ---
Author Organization [facility] Address [address] [facility] [address] [place] [address] Care Team Providers Care Putty And Caulking Supervisor Name Role Phone Rodolfo Mantilla MD Unavailable Sabrina Ruffin MD Primary Care Provider Encounter Details Date Type Department Care Team (Late st Contact Info) Description 02/16/2023 Orders Only [facility] Cardiology [address] [facility] [address] [facility] [address] [place] [address] Randy Medina MD [address] [facility] [address] [place] [address] Social History Tobacco Use Types Packs/Day Years [...] on file 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 Gender Identity Not on file Sexual Orientation Not on file Occupation Industry Job Start Date Job End Date retired Not on file Not on file Not on file documented as of this encounter Plan of Treatment Not on file documented as of this encounter Procedures Procedure Name Priority Date/Time Associated Diagnosis Comments CARDIOLOGY DOCUMENT SCAN Routine 02/16/2023 documented in this encounter Results * Cardiology Document Scan (02/16/2023) Anatomical Region Laterality Modality Other Randy Medina MD CV CARDIAC SERVICES PROC EDURES Final Result documented in this encounter Visit Diagnoses Not on filedocumented in this encounter Care Teams Putty And Caulking Supervisor Relationship Specialty Start Date End Date Sabrina Ruffin MD [address] [place] [address] PCP - General Family Medicine 12/31/20 Rodolfo Mantilla MD [address] [place] [address] Consulting Physician Neurology 12/21/19 documented as of this encounter
--- OUTSIDE RECORDS SUMMARY | 2024-10-31 03:50 | XMS_ITS | Encounter Summary ---
Author Organization [facility] Address [address] [facility] [address] [place] [address] Care Team Providers Care Sales Contractor Name Role Phone Rodolfo Mantilla MD Unavailable Sabrina Ruffin MD Primary Care Provider Encounter Details Date Type Department Care Team (Late st Contact Info) Description 02/16/2023 Orders Only [facility] Cardiology [address] [facility] [address] [facility] [address] [place] [address] Randy Medina MD [address] [facility] [address] [place] [address] Social History Tobacco Use Types [...] on file 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
--- OUTSIDE RECORDS SUMMARY | 2024-10-31 03:50 | XMS_ITS | Encounter Summary ---
Author Organization [facility] Healthcare Address [address] [place] [address] Care Team Providers Care Line Analyst Name Role Phone Rodolfo Mantilla MD Unavailable Sabrina Ruffin MD Primary Care Provider Reason for Referral * MRI/CAT/PET Scan (Routine) - Closed Specialty Diagnoses / Procedures Referred By Contac t Referred To Contact Radiology Diagnoses Cervicalgia Procedures MRI Cervical Spine WO Contrast Jory Aguero NP [address] [place] [address] Phone: tel: fax: [address] [phone] Referral ID Status Reason Start Date Expiration Date Visits Re quested Visits Authorized [id number] Closed 06/02/2022 07/02/2023 1 1 Reason for Visit * MRI/CAT/PET Scan (Routine) - Closed Specialty Diagnoses / Procedures Referred By Contac t Referred To Contact Radiology Diagnoses Cervicalgia Procedures MRI Cervical Spine WO Contrast Jory Aguero NP [address] [place] [address] Phone: tel: fax: [address] [phone] Referral ID Status Reason Start Date Expiration Date Visits Re quested Visits Authorized [id number] Closed 06/02/2022 07/02/2023 1 1 Encounter Details Date Type Department Care Team (Latest Contact Info) Description 07/30/2022 11:27 AM CDT - 07/30/2022 11:59 PM CDT Hospital Encounter [facility] [address] [place] [address] Cervicalgia Discharge Disposition: Discharge to home or self [...] on file 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 Gender Identity Not on file Sexual Orientation [...] 1 spray into each nostril daily 03/03/2022 hydroCHLOROthiaz laila (HYDRODIURIL) 25 mg tablet Take [...] Name Priority Date/Time Associated Diagnosis Comments MRI THORACIC SPINE WO CONTRAST Schedule Routine, Read Routine (OP Routine) 07/30/2022 2:13 PM CDT Pain in thoracic spine MRI CERVICAL SPINE WO CONTRAST Schedule Routine, Read Routine (OP Routine) 07/30/2022 2:13 PM CDT Cervicalgia documented in this encounter Results * MRI Cervical Spine WO Contrast (07/30/2022 2:13 PM CDT) Anatomical Region Laterality Modality Spine N/A Magnetic Resonan ce 07/30/2022 3:43 PM CDT Impressions 07/30/2022 4:41 PM CDT Mild multilevel degenerative changes of the ??spine as described in detail above. Edema surrounding the T11-T12 and T12-L1 intervertebral disc space likely representing combination of healing T12 superior endplate compression deformity and Modic type I changes Dictated by: Chase Heck M.D. The radiology attending physician has personally reviewed this study, and had reviewed and/or edited this written report and agrees with it. Electronically signed by: Jayro Romero M.D. Narrative 07/30/2022 4:41 PM CDT EXAMINATION: Magnetic resonance imaging (MRI) of the cervical spine without contrast Magnetic resonance imaging (MRI) of the thoracic spine without contrast HISTORY: Cervical and thoracic pain. TECHNIQUE: Multiplanar multi-weighted MRI of the entire spine was performed without intravenous contrast using the standard total spine protocol. COMPARISON: MRI cervical spine 10/13/2019 FINDINGS: CERVICAL SPINE: There is stepwise normal retrolisthesis of C3 on C4 and C4 and C5. Type II Modic changes are seen surrounding T1 and T2 No acute fracture is identified; however, if trauma is suspected, a CT scan would be a more sensitive examination for fractures. The craniocervical junction is normal. The visualized portions of the skull base and the posterior fossa are normal. The spinal cord demonstrates normal signal intensity on all sequences. Intervertebral disks have normal height and signal intensity. There are no annular fissures identified. No soft tissue abnormality is identified. C2-C3: Tiny posterior disc osteophyte complex There is no facet arthropathy. There is no uncovertebral joint disease. There is no neuroforaminal stenosis. There is no spinal canal stenosis. C3-C4: Posterior disc osteophyte complex There is no facet arthropathy. There is no uncovertebral joint disease. There is no neuroforaminal stenosis. There is moderate spinal canal stenosis. C4-C5: Posterior disc osteophyte complex There is no facet arthropathy. There is no uncovertebral joint disease. There is no neuroforaminal stenosis. There is moderate spinal canal stenosis. C5-C6: Posterior disc osteophyte complex There is no facet arthropathy. There is no uncovertebral joint disease. There is no neuroforaminal stenosis. There is moderate spinal canal stenosis. C6-C7:Posterior disc osteophyte complex There is moderate bilateral facet arthropathy. There is moderate bilateral uncovertebral joint disease. There is moderate bilateral neuroforaminal stenosis. There is moderate spinal canal stenosis. C7-T1: The disk is normal in configuration. There is mild bilateral facet arthropathy. There is no uncovertebral joint disease. There is no neuroforaminal stenosis. There is no spinal canal stenosis. THORACIC SPINE: There is mild exaggeration of the thoracic kyphosis. Type II Modic changes are seen surrounding the T1-T2 T10-T11. Unchanged compression deformity T12. Type II Modic changes are seen surrounding T11-T12 and T12-L1. There is a healing superior endplate compression deformity of T12. The spinal cord demonstrates normal signal intensity on all sequences. Multilevel disc desiccation and height loss is noted throughout the thoracic spine with posterior disc bulge at most pronounced at T7-T8 and T11-T12 results in mild spinal canal stenosis.. Limited views of the abdomen and pelvis show no soft tissue abnormality. Facet and uncovertebral osteoarthropathy results in moderate neural foraminal stenosis from T12 through L2 Procedure Note Jayro Romero MD - 07/30/2022 EXAMINATION: Magnetic resonance imaging (MRI) of the cervical spine without contrast Magnetic resonance imaging (MRI) of the thoracic spine without contrast HISTORY: Cervical and thoracic pain. TECHNIQUE: Multiplanar multi-weighted MRI of the entire spine was performed without intravenous contrast using the standard total spine protocol. COMPARISON: MRI cervical spine 10/13/2019 FINDINGS: CERVICAL SPINE: There is stepwise normal retrolisthesis of C3 on C4 and C4 and C5. Type II Modic changes are seen surrounding T1 and T2 No acute fracture is identified; however, if trauma is suspected, a CT scan would be a more sensitive examination for fractures. The craniocervical junction is normal. The visualized portions of the skull base and the posterior fossa are normal. The spinal cord demonstrates normal signal intensity on all sequences. Intervertebral disks have normal height and signal intensity. There are no annular fissures identified. No soft tissue abnormality is identified. C2-C3: Tiny posterior disc osteophyte complex There is no facet arthropathy. There is no uncovertebral joint disease. There is no neuroforaminal stenosis. There is no spinal canal stenosis. C3-C4: Posterior disc osteophyte complex There is no facet arthropathy. There is no uncovertebral joint disease. There is no neuroforaminal stenosis. There is moderate spinal canal stenosis. C4-C5: Posterior disc osteophyte complex There is no facet arthropathy. There is no uncovertebral joint disease. There is no neuroforaminal stenosis. There is moderate spinal canal stenosis. C5-C6: Posterior disc osteophyte complex There is no facet arthropathy. There is no uncovertebral joint disease. There is no neuroforaminal stenosis. There is moderate spinal canal stenosis. C6-C7:Posterior disc osteophyte complex There is moderate bilateral facet arthropathy. There is moderate bilateral uncovertebral joint disease. There is moderate bilateral neuroforaminal stenosis. There is moderate spinal canal stenosis. C7-T1: The disk is normal in configuration. There is mild bilateral facet arthropathy. There is no uncovertebral joint disease. There is no neuroforaminal stenosis. There is no spinal canal stenosis. THORACIC SPINE: There is mild exaggeration of the thoracic kyphosis. Type II Modic changes are seen surrounding the T1-T2 T10-T11. Unchanged compression deformity T12. Type II Modic changes are seen surrounding T11-T12 and T12-L1. There is a healing superior endplate compression deformity of T12. The spinal cord demonstrates normal signal intensity on all sequences. Multilevel disc desiccation and height loss is noted throughout the thoracic spine with posterior disc bulge at most pronounced at T7-T8 and T11-T12 results in mild spinal canal stenosis.. Limited views of the abdomen and pelvis show no soft tissue abnormality. Facet and uncovertebral osteoarthropathy results in moderate neural foraminal stenosis from T12 through L2 IMPRESSION: Mild multilevel degenerative changes of the spine as described in detail above. Edema surrounding the T11-T12 and T12-L1 intervertebral disc space likely representing combination of healing T12 superior endplate compression deformity and Modic type I changes Dictated by: Chase Heck M.D. The radiology attending physician has personally reviewed this study, and had reviewed and/or edited this written report and agrees with it. Electronically signed by: Jayro Romero M.D. Jory Aguero JUNIOR PROGRAMMER ANALYST IMG MRI PROCEDURES Final Resu lt documented in this encounter Visit Diagnoses Diagnosis Cervicalgia documented in this encounter Care Teams Line Analyst Relationship Specialty Start Date End Date Sabrina Ruffin MD [address] [facility] [address] [place] [address] PCP - General Family Medicine 12/31/20 Rodolfo Mantilla MD [address] [place] [address] Consulting Physician Neurology 12/21/19 documented as of this encounter
--- OUTSIDE RECORDS SUMMARY | 2024-10-31 03:50 | XMS_ITS | Encounter Summary ---
Author Organization [facility] Address [address] [place] [address] Phone Care Team Providers Care Audit Practice Intern Name Role Phone Rodolfo Mantilla MD Unavailable Sabrina Ruffin MD Primary Care Provider Encounter Details Date Type Department Care Team (Late st Contact Info) Description 06/02/2023 Telephone [facility] Neurosurgery [address] [facility] 6th [place] [address] [place] [address] Pearl Braswell, YOKE SETTER [address] [place] [address] Social History Tobacco Use Types [...] on file 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 Gender Identity Not on file Sexual Orientation Not on file Occupation Industry Job Start Date Job End Date retired Not on file Not on file Not on file documented as of this encounter Miscellaneous Notes * Telephone Encounter - Moo Conti - 06/09/2023 3:34 PM CDT Called pt to rescheudle as per request with Pearl Carballo Pt was very upset as this appt has been rescheduled a few times and requested to be seen by a different YOKE SETTER This appointment is or a shunt check/ calibration Reason for visit: Return Pt Date:07/02/2023 Time: 10:45am Location: [facility] ([facility]) Provider YOKE SETTER - Pati Odell Routed: Directly to YOKE SETTER * Telephone Encounter - Reji Gaytan - 06/02/2023 9:43 AM CDT Pt returned a call about her appt. Appt date and time provided to PT. * Telephone Encounter - Lora Owens RMA - 06/02/2023 9:32 AM CDT Per provider request, apt on 06/03/23 needs to be cancelled and rescheduled. Called patient and had to leave a message notifying her that her apt has been moved to 06/10/23 at 12:30 PM. I asked patient to call back and confirm her new apt details. documented in this encounter Plan of Treatment Not on file documented as of this encounter Visit Diagnoses Not on filedocumented in this encounter Care Teams Audit Practice Intern Relationship Specialty Start Date End Date Sabrina Ruffin MD [address] [facility] [address] [place] [address] PCP - General Family Medicine 12/31/20 Rodolfo Mantilla MD [address] [place] [address] Consulting Physician Neurology 12/21/19 documented as of this encounter
--- OUTSIDE RECORDS SUMMARY | 2024-10-31 03:50 | XMS_ITS | Encounter Summary ---
Author Organization [facility] Address [address] [place] [address] Phone Care Team Providers Care New Car Salesperson Name Role Phone Rodolfo Mantilla MD Unavailable Sabrina Ruffin MD Primary Care Provider Encounter Details Date Type Department Care Team (Late st Contact Info) Description 07/30/2022 10:00 AM CDT Office Visit [facility] Neurosurgery [address] [facility] Advanced Medicine 6th [place] [address] [place] [address] Cindy Nelson, BE [address] [facility] [address] [place] [id number] NPH (normal pressure hydrocephalus) (HCC) (Primary Dx) [...] on file 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 Gender Identity Not on file Sexual Orientation Not on file Occupation Industry Job Start Date Job End Date retired Not on file Not on file Not on file documented as of this encounter Last Filed Vital Signs Vital Sign Reading Time Taken Comments Blood Pressure 131/69 07/30/2022 2:36 PM CDT Pulse 79 07/30/2022 2:36 PM CDT Temperature - - Respiratory Rate - - Oxygen Saturation - - Inhaled Oxygen Concentration - - Weight 97 kg (213 lb 12.8 oz) 07/30/2022 2:36 PM CDT Height 163.8 cm (5' 4.5 ) 07/30/2022 2:36 PM CDT Body Mass Index 36.13 07/30/2022 2:36 PM CDT documented in this encounter Progress Notes * Cindy Nelson NP - 07/30/2022 10:00 AM CDT Olga Bansal with a history of normal pressure hydrocephalus for which she underwent right parietal ventriculoperitoneal shunt with a strata valve at a setting of 1.5. Today she had MRI of her cervical and thoracic spine and comes in for shunt evaluation. Using the manual tools programmer I interrogated the strata valve and was noted to be at a setting of 1.5. No adjustment was needed. documented in this encounter Plan of Treatment Not on file documented as of this encounter Visit Diagnoses Diagnosis NPH (normal pressure hydrocephalus) (HCC)- Primary Idiopathic normal pressure hydrocephalus (INPH) documented in this encounter Historical Medications * This list may reflect changes made after this encounter. ibuprofen (ADVIL,MOTRIN) 400 mg tablet ONE TABLET BY MOUTH EVERY 6 HOURS NEEDED FOR PAIN OR FEVER 07/05/2022 hydroCHLOROthiazi de (HYDRODIURIL) 25 mg tablet Take 25 mg by mouth daily 07/09/2022 added in this encounter Care Teams New Car Salesperson Relationship Specialty Start Date End Date Sabrina Ruffin MD [address] [place] [address] PCP - General Family Medicine 12/31/20 Rodolfo Mantilla MD [address] [place] [address] Consulting Physician Neurology 12/21/19 documented as of this encounter
--- OUTSIDE RECORDS SUMMARY | 2024-10-31 03:51 | XMS_ITS | Encounter Summary ---
Author Organization [facility] Address [address] [place] [address] Care Team Providers Care Toolmaker Name Role Phone Rodolfo Mantilla MD Unavailable Sabrina Ruffin MD Primary Care Provider Reason for Referral * Diagnostic Imaging (Routine) - Closed Specialty Diagnoses / Procedures Referred By Contac t Referred To Contact Radiology Diagnoses NPH (normal pressure hydrocephalus) (HCC) Procedures CT Head WO Contrast Leobardo Perez MD Phone: tel: fax: [address] [address] Referral ID Status Reason Start Date Expiration Date Visits Re quested Visits Authorized [id number] Closed 08/28/2020 09/27/2021 1 1 NEERING SUPERVISOR Reason for Visit * Diagnostic Imaging (Routine) - Closed Specialty Diagnoses / Procedures Referred By Devin laboy Referred To Contact Radiology Diagnoses NPH (normal pressure hydrocephalus) (HCC) Procedures CT Head WO Contrast Leobardo Perez MD Phone: tel: fax: [address] [address] Referral ID Status Reason Start Date Expiration Date Visits Re quested Visits Authorized [id number] Closed 08/28/2020 09/27/2021 1 1 Encounter Details Date Type Department Care Team (Latest Contact Info) Description 12/31/2020 8:00 AM ENGINEERING SUPERVISOR - 12/31/2020 11:59 PM ENGINEERING SUPERVISOR Hospital Encounter [facility] Radiology [facility] [address] [place] [address] Leobardo Perez MD [address] [place] [address] NPH (normal pressure hydrocephalus) ([facility]/HCC) Discharge Disposition: Discharge to home or self care Social History Tobacco Use Types Packs/Day Years Used Date Smoking Tobacco: Former Cigarettes Q uit: 07/27/1970 Smokeless Tobacco: Never Alcohol Use Standard Drinks/Week Comments Yes 1 (1 standard drink = 0.6 oz pur e alcohol) Comments No Sex and Gender Information Value Date Recorded Sex Assigned at Not on file 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 5 08/08/2018 metoprolol XL (TOPROL-XL) 50 mg 24 hr tablet Take 50 mg by mouth daily. morphine ER (MS CONTIN) 15 mg 12 hr tablet Take 15 mg by mouth 2 (two) times a day valsartan (DIOVAN) 160 mg tablet Take 160 mg by mouth daily atorvastatin (LIPITOR) 10 mg tablet Take 10 mg by mouth daily. 08/29/2021 carbidopa-levodo pa (SINEMET) 25-100 mg per tabletIndication s:Parkinsonism Take 4 tabs 3 times per day 810 tablet 3 09/04/2020 08/29/2021 gabapentin (NEURONTIN) 300 mg capsule Take 600 mg by mouth 2 (two) times a day 06/02/2022 hydroCHLOROthiaz laila (HYDRODIURIL) 12.5 mg tablet Take 12.5 mg by mouth daily 04/20/2020 09/03/2021 traZODone (DESYREL) 100 mg tabletIndication s:sleep Take 50-100 mg by mouth nightly 08/29/2021 venlafaxine XR (EFFEXOR-XR) 37.5 mg 24 hr capsule Take 37.5 mg by mouth as directed 1 cap in the morning and 2 caps in the evening 12/15/2019 08/29/2021 documented as of this encounter Discharge Disposition Disposition Code Departure Means Destination Discharge to home or self care documented in this encounter Plan of Treatment Not on file documented as of this encounter Procedures Procedure Name Priority Date/Time Associated Diagnosis Comments CT HEAD WO CONTRAST Schedule Routine, Read Routine (OP Routine) 12/31/2020 8:09 AM ENGINEERING SUPERVISOR NPH (normal pressure hydrocephalus) (CMS/HCC) documented in this encounter Results * CT Head WO Contrast (12/31/2020 8:09 AM ENGINEERING SUPERVISOR) Anatomical Region Laterality Modality Head and Neck N/A Computed Tomogra phy 12/31/2020 8:52 AM ENGINEERING SUPERVISOR Impressions 12/31/2020 8:52 AM ENGINEERING SUPERVISOR Right parietal approach ventricular catheter with grossly unchanged mild to moderate enlargement of the lateral and 3rd ventricles. Electronically signed by: Ranjan Brown M.D. Narrative 12/31/2020 8:52 AM ENGINEERING SUPERVISOR EXAMINATION: CT head without contrast HISTORY: Normal pressure hydrocephalus, follow-up. TECHNIQUE: Noncontrast CT of the brain was performed with images acquired from skull base to vertex. COMPARISON: Head CT from 08/28/2020. FINDINGS: A right parietal approach ventricular catheter crosses the midline and terminates in the region of the body of the left lateral ventricle. ??Ventricular size is grossly unchanged with mild to moderate enlargement of the lateral and 3rd ventricles. ??Diffuse cerebral volume loss is present there is atherosclerosis of the cavernous carotid arteries. ??A prior left frontal approach ventricular catheter tract is noted.. There is no acute intracranial hemorrhage. Ventricles are of normal size and morphology. No mass effect or midline shift is present. The figueroa-white matter differentiation is normal. The visualized portions of the orbits are normal. The visualized portions of the mastoids are normal. The visualized portions of the paranasal sinuses are normal. No fractures are identified. Procedure Note Ranjan Brown MD - 12/31/2020 EXAMINATION: CT head without contrast HISTORY: Normal pressure hydrocephalus, follow-up. TECHNIQUE: Noncontrast CT of the brain was performed with images acquired from skull base to vertex. COMPARISON: Head CT from 08/28/2020. FINDINGS: A right parietal approach ventricular catheter crosses the midline and terminates in the region of the body of the left lateral ventricle. Ventricular size is grossly unchanged with mild to moderate enlargement of the lateral and 3rd ventricles. Diffuse cerebral volume loss is present there is atherosclerosis of the cavernous carotid arteries. A prior left frontal approach ventricular catheter tract is noted.. There is no acute intracranial hemorrhage. Ventricles are of normal size and morphology. No mass effect or midline shift is present. The figueroa-white matter differentiation is normal. The visualized portions of the orbits are normal. The visualized portions of the mastoids are normal. The visualized portions of the paranasal sinuses are normal. No fractures are identified. IMPRESSION: Right parietal approach ventricular catheter with grossly unchanged mild to moderate enlargement of the lateral and 3rd ventricles. Electronically signed by: Ranjan Brown M.D. Leobardo Perez MD IMG CT PROCEDURES Final Resul t documented in this encounter Visit Diagnoses Diagnosis NPH (normal pressure hydrocephalus) (HCC) Idiopathic normal pressure hydrocephalus (INPH) documented in this encounter Care Teams Toolmaker Relationship Specialty Start Date End Date Sabrina Ruffin MD [address] [facility] [address] [place] [address] PCP - General Family Medicine 12/31/20 Rodolfo Mantilla MD [address] [place] [address] Consulting Physician Neurology 12/21/19 documented as of this encounter
--- OUTSIDE RECORDS SUMMARY | 2024-10-31 03:51 | XMS_ITS | Encounter Summary ---
Author Organization [facility] Address [address] [place] [address] Phone Care Team Providers Care Unix Manager Name Role Phone Willy Cummings MD Primary Care Provider [phone] Encounter Details Date Type Department Care Team (Late st Contact Info) Description 09/16/2019 Orders Only [facility] Movement Disorders [address] [place] [address] [place] [id number] Rodolfo Mantilla MD [address] [place] [address] Social History Tobacco Use Types Packs/Day Years Used Date Smoking Tobacco: Former Smokeless Tobacco: Never Alcohol Use Standard Drinks/Week Comments Yes 1 (1 standard drink = 0.6 oz pur e alcohol) Comments Unknown Sex and Gender Information Value Date Recorded Sex Assigned at Not on file 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
--- OUTSIDE RECORDS SUMMARY | 2024-10-31 03:51 | XMS_ITS | Encounter Summary ---
Author Organization [facility] Address [address] [place] [address] Phone Care Team Providers Care Rectifying Attendant Name Role Phone Cecilia Lim MD Primary Care Provider Rodolfo Mantilla MD Unavailable Encounter Details Date Type Department Care Team (Late st Contact Info) Description 06/04/2020 Telephone [facility] Movement Disorders [address] [place] [phone] Rodolfo Mantilla MD [address] [place] [address] Social History Tobacco Use Types Packs/Day Years Used Date Smoking Tobacco: Former Cigarettes Smokeless Tobacco: Never Alcohol Use Standard Drinks/Week Comments Yes 1 (1 standard drink = 0.6 oz pur e alcohol) Comments Unknown Sex and Gender Information Value Date Recorded Sex Assigned at Not on file 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 Shruthi- She had been taking the domperidone with her sinemet and food. I asked her yesterday to try taking domperidone 30 minutes before anything else, then sinemet with food and see if that helped first. I will ask her when she calls back. * Telephone Encounter - Shruthi Rivero NP - 06/08/2020 8:56 AM CDT She weighs 221 lbs. I was worried about weight gain with mirtazapine. Thanks Steven * Telephone Encounter - Rodolfo Mantilla MD - 06/07/2020 10:40 PM CDT I agree with the EKG if we are increasing the dose of domperidone. I have been preferring mirtazapine for sleep amy depression lately but we can see how the higher dose of trazodone does. Rodolfo * Telephone Encounter - Shruthi Rivero NP - 06/07/2020 7:48 PM CDT I am confused. Is she already taking 10 mg of domperidone 30 to 60 min before the first dose in themorning? If she is already doing that, we could make it 20 mg but she would need EKG first to r/o long QT on the larger dose. If 100 mg of trazodone is not helping sleep at all, I would increase to 150 mg and if not much improvement after about a week, go to 2 tabs qhs. Thanks Steven * Telephone Encounter - Sarah Breaux, RN - 06/07/2020 3:14 PM CDT I spoke with her. She wanted to tell Shruthi that increasing her CD/LD has helped her balance. She is having trouble with some am nausea only. She said she does not even need domperidone in the mid day or evening, but the first dose makes her feel nauseated. SHe does take with food. I suggested shetry the domperidone 30 min prior to eating and taking CD/LD, and in the meantime, I will ask if ok to increase the one domperidone dose. She also said the 100 mg trazodone is not helping her sleep and she wanted other suggestions. Can she try more than 10 mg domperidone in the am? SHe does not take it any other time of day Also- Can she try something else for sleep? * Telephone Encounter - Kelli Mckeon CMA - 06/07/2020 12:18 PM CDT She was calling you back. Please call her at [phone]. Brenda Pereira * Telephone Encounter - Sarah Breaux RN - 06/07/2020 11:12 AM CDT I called back and left a VM asking her to return the call when able. * Telephone Encounter - Kelli Mckeon CMA - 06/07/2020 10:14 AM CDT (MU) She called back and wants to give an update on her meds. Please call her at [phone]. Thanks, Kelli * Telephone Encounter - Sarah Breaux RN - 06/04/2020 2:48 PM CDT I called back and left a VM asking her to call back when able. 05/09 with [facility]: Plan: ?? 1. Carbidopa/levodopa: Try to push slowly up to 4 tabs tid. If nausea is a bigger issue, she will let us know and we will increase domperidone back to tid dosing. 2. Increase venlafaxine as directed.3. Start trazodone for sleep. 4. Continue intensive exercise. 4. Go ahead with large volume lumbar drain. 5. Start PT and we will send her an rx. 6. Consider swallow study. ?? * Telephone Encounter - Lori Olivares - 06/04/2020 2:32 PM CDT (MU) Pt wants to discuss her recently prescribed medication. Call back # [phone] Lori Gutierrez documented in this encounter Plan of Treatment Not on file documented as of this encounter Visit Diagnoses Not on filedocumented in this encounter Care Teams Rectifying Attendant Relationship Specialty Start Date End Date Cecilia Lim MD PCP - General Family Medicine 12/21/19 12/30/20 Rodolfo Mantilla MD [address] [place] [address] Consulting Physician Neurology 12/21/19 documented as of this encounter
--- OUTSIDE RECORDS SUMMARY | 2024-10-31 03:51 | XMS_ITS | Encounter Summary ---
Author Organization [facility] Address [address] [place] [address] Phone Care Team Providers Care Freelance Makeup Artist Name Role Phone Cecilia Lim MD Primary Care Provider Rodolfo Mantilla MD Unavailable Encounter Details Date Type Department Care Team (Late st Contact Info) Description 05/10/2020 Telephone [facility] Scheduling [address] [place] [address] Nerissa Vernon BS Social History Tobacco Use Types Packs/Day Years Used Date Smoking Tobacco: Former Cigarettes Smokeless Tobacco: Never Alcohol Use Standard Drinks/Week Comments Yes 1 (1 standard drink = 0.6 oz pur e alcohol) Comments Unknown Sex and Gender Information Value Date Recorded Sex Assigned at Not on file Legal Sex Female 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 KiOntay, could you change this in Epic and someone find the correct phone number? Thanks J ----- Message ----- From: Rosa Cadet RN Sent: 05/08/2020 4:30 PM CDT To: Shruthi Rivero NP, Celsa Robledo, # Subject: RE: Appt Tomorrow 05/09/20 Us nurses cannot change her appt.with [facility] tomorrow. Shruthi, I presume you will not be seeing her in person. Please scheduling know. ThanksEmerita ----- Message ----- From: Celsa Robledo Sent: 05/08/2020 4:08 PM CDT To: Jean Pierre Garcia [facility] Scheduling Pool, # Subject: Appt Tomorrow 05/09/20 Patient called the Telemed Consent Help Desk and would like to talk to the office or schedulers to have her appointment for tomorrow changed to a phone call. She really wants to come in and see Shurthi. Patient was not sure if Shruthi needed to do some type of exam. She is not tech savvy and does not want a telemed/zoom appointment. Please call patient at [phone]. Her appointment is tomorrow05/09 @ 3:30pm with Shruthi. Thank you, nett documented in this encounter Plan of Treatment Not on file documented as of this encounter Visit Diagnoses Not on filedocumented in this encounter Care Teams Freelance Makeup Artist Relationship Specialty Start Date End Date Cecilia Lim MD PCP - General Family Medicine 12/21/19 12/30/20 Rodolfo Mantilla MD [address] [place] [address] Consulting Physician Neurology 12/21/19 documented as of this encounter
--- OUTSIDE RECORDS SUMMARY | 2024-10-31 03:51 | XMS_ITS | Encounter Summary ---
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 05/07/2020 Encounter Details Date Type Department Care Team (Late st Contact Info) Description 05/07/2020 Telephone [facility] Neurosurgery [address] [facility] 6th [place] [address] Leobardo Perez MD [address] [place], [place] [id number] 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 Social History Tobacco Use Types Packs/Day Years Used Date Smoking Tobacco: Former Cigarettes Smokeless Tobacco: Never Alcohol Use Standard Drinks/Week Comments Yes 1 (1 standard drink = 0.6 oz pur e alcohol) Comments Unknown Sex and Gender Information Value Date Recorded Sex Assigned at Not on file Legal Sex Female 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 Neuropsych set up @ 10:00. I called admitting and left a message for PT with info. Please check on insurance notification, * Telephone Encounter - Candice Hill RN - 07/13/2020 9:47 AM CDT I called and left a message asking for a call back to se up NPH work up on 07-23. Movement Disorderscould see her at 10:00 * Telephone Encounter - Abbey Moon RMA - 05/25/2020 10:28 AM CDT Patient called the office LM, stating that she received the message.. * Telephone Encounter - Candice Hill RN - 05/24/2020 3:57 PM CDT I called and left patient a message that we are not able to do the admission on 05-28 as the [facility] suspended all elective admissions and elective surgery. * Telephone Encounter - Candice Hill RN - 05/08/2020 5:27 PM CDT I called patient, next available NPH spot is ThursdayMay 28. I will let her know arrival time when I find out if she has already had neuropsych and video gait done. * Telephone Encounter - Candice Hill RN - 05/07/2020 5:54 PM CDT Patient needs to be admitted for a lumbar drain placement with PT assessment, video gait and neuropsych evaluation. 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
--- OUTSIDE RECORDS SUMMARY | 2024-10-31 03:51 | XMS_ITS | Encounter Summary ---
Author Organization [facility] Address [address] [facility] [address] [place] [address] Phone Care Team Providers Care Delivery Route Driver Name Role Phone Willy Cummings MD Primary Care Provider [phone] Reason for Visit * Reason Comments Return Patient Parkinson's Disease Encounter Details Date Type Department Care Team (Late st Contact Info) Description 09/16/2019 10:30 AM PECAN PICKER Office Visit [facility] Movement Disorders [address] [place] [address] [phone] Shruthi Rivero, CABLE RESPOOLER [address] [place] [address] Parkinsonism, unspecified Parkinsonism type (CMS/HCC) (Primary Dx); Anxiety and depression Social History Tobacco Use Types Packs/Day Years Used Date Smoking Tobacco: Former Smokeless Tobacco: Never Alcohol Use Standard Drinks/Week Comments Yes 1 (1 standard drink = 0.6 oz pur e alcohol) Comments Unknown Sex and Gender Information Value Date Recorded Sex Assigned at Not on file Legal Sex Female 1:04 AM PECAN PICKER Gender Identity Not on file Sexual Orientation Not on file Occupation Industry Job Start Date Job End Date retired Not on file Not on file Not on file documented as of this encounter Last Filed Vital Signs Vital Sign Reading Time Taken Comments Blood Pressure 146/77 09/16/2019 10:39 AM PECAN PICKER Pulse 64 09/16/2019 10:39 AM PECAN PICKER Temperature - - Respiratory Rate - - Oxygen Saturation - - Inhaled Oxygen Concentration - - Weight 101.4 kg (223 lb 9.6 oz) 019 10:39 AM PECAN PICKER Height 163.8 cm (5' 4.5 ) 09/16/2019 10 :39 AM PECAN PICKER Body Mass Index 37.79 09/16/2019 10:39 AM PECAN PICKER documented in this encounter Ordered Prescriptions Prescription Sig Dispense Quantity Refills Last Filled Start Date End Date carbidopa-levodopa (SINEMET) 25-100 mg per tabletIndications:P arkinsonism Take 3 tabs 3 times per day 810 tablet 3 09/16/2019 05/09/2020 documented in this encounter Progress Notes * Shruthi Rivero NP - 09/16/2019 10:30 AM CST [facility] Office Visit Patient: Olga Bansal Referred by: Willy Cummings MD : 1945 Visit Date: 09/16/2019 Clinician: Shruthi Rivero NP Chief Complaint Olga Bansal is a 73 y.o. female who presents for Return Patient and Parkinson's Disease Hand Dominance: Referred by Willy Cummings MD. Her PMD is Willy Cummings MD. HPI: Since increasing the carbi/levo to 2 tabs tid, she feels she is better able to catch herself when she feels that she could fall. She thinks her walking is a bit better and she has been clearly falling less. No improvement in dexterity, she thinks rigidity is less, she has less trouble arising from chairs. She is doing some exercises--her granddaughter is studying to be a pecan picker. She is working on balance, stretching. She still has some nausea, even with domperidone after the first dose. She is taking levodopa on a full stomach at all meals. She has no lightheadedness, no hallucinations, no dyskinesia. Appetite has been fine. Chewing and swallowing are fine. Bowels are fine overall with some Miralax. Bladder is somewhat urgent. Sleep at night is up and down. Some nights, she hasa lot more problems than at other times. She just has insomnia. She has been taking medical marijuana for pain and it helps a bit. Mood and spirits have been okay--normal for her. On duloxetine, mood got much worse. Thinking and memory are not as good as they once were but still trouble with word finding. Current Outpatient Medications Medication Sig Dispense Refill ??? atorvastatin (LIPITOR) 10 mg tablet Take 10 mg by mouth daily. ??? carbidopa-levodopa (SINEMET) 25-100 mg per tablet Take 1 1/2 tab by mouth 3 times daily. Take with meals (Patient taking differently: Take 3 tablets by mouth Take 1 1/2 tab by mouth 3 times daily. Take with meals) 135 tablet 11 ??? cholecalciferol (VITAMIN D-3) 1000 unit tablet Take 1,000 Units by mouth daily ??? citalopram (CeleXA) 20 mg tablet Take 20 mg by mouth daily ??? DOMPERIDONE, BULK, MISC 10 mg 3 (three) times a day Take 1 tab 30 minutes prior to first dose Sinemet daily and 1 tab with the two remaining doses of Sinemet. (3 tabs daily) Please offer her the 500 tab bottle if she wants to pay the money. ??? gabapentin (NEURONTIN) 300 mg capsule Take 300 mg by mouth 3 (three) times a day ??? levothyroxine (SYNTHROID, LEVOTHROID) 100 mcg tablet Take 100 mcg by mouth daily. 5 ??? losartan (COZAAR) 50 mg tablet Take 50 mg by mouth daily. ??? metoprolol XL (TOPROL-XL) 50 mg 24 hr tablet Take 50 mg by mouth daily. ??? UNABLE TO FIND Medical Marijuana No current facility-administered medications for this visit. Allergies Allergen Reactions ??? Celebrex [Celecoxib] Stomach upset ??? Sulfa (Sulfonamide Antibiotics) Other (See comments) and Unknown Reaction: Past Medical History: Diagnosis Date ??? Anemia ??? Arthritis ??? Blood clot associated with vein wall inflammation ??? Cataract ??? Depression ??? Diabetes mellitus (CMS/HCC) ??? History of transfusion ??? Hypertension ??? Osteopenia ??? Thalassemia minor ??? Thyroid disease hypothyroidism Past Surgical History: Procedure Laterality Date ??? CARPAL TUNNEL RELEASE bilat. ??? CHOLECYSTECTOMY ??? HYSTERECTOMY ??? KNEE ARTHROSCOPY bilat. knee replacement ??? REMOVE VENA CAVA FILTER N/A 05/21/2018 ??? THYROIDECTOMY, PARTIAL Family History Problem Relation Age of Onset ??? Diabetes Son ??? Other (NPH) Sister 75 shunt placed 1yr ago with improvement in gait Ethnicity: Non- Social History Socioeconomic History ??? Marital status: Spouse name: None ??? Number of children: None ??? Years of education: None ??? Highest education level: None Occupational History ??? Occupation: retired Social Needs ??? Financial resource strain: None ??? Food insecurity: Worry: None Inability: None ??? Transportation needs: Medical: None Non-medical: None Tobacco Use ??? Smoking status: Former Smoker ??? Smokeless tobacco: Never Used Substance and Sexual Activity ??? Alcohol use: Yes Alcohol/week: 1.0 standard drinks Types: 1 Glasses of wine per week ??? Drug use: No ??? Sexual activity: None Lifestyle ??? Physical activity: Days per week: None Minutes per session: None ??? Stress: None Relationships ??? Social connections: Talks on phone: None Gets together: None Attends lutheran service: None Active member of club or organization: None Attends meetings of clubs or organizations: None Relationship status: None ??? Intimate partner violence: Fear of current or ex partner: None Emotionally abused: None Physically abused: None Forced sexual activity: None Other Topics Concern ??? None Social History Narrative ??? None Review of Systems Constitutional: Negative. HENT: Negative. Eyes: Negative. Cardiovascular: Negative. Gastrointestinal: Positive for nausea. Endocrine: Negative. Genitourinary: Positive for frequency and urgency. Musculoskeletal: Positive for gait problem. Allergic/Immunologic: Negative. Hematological: Negative. Psychiatric/Behavioral: Positive for decreased concentration and dysphoric mood. Vitals BP 146/77 (BP Location: Right arm, Patient Position: Sitting) Pulse 64 Ht 163.8 cm (5' 4.5 ) Wt 101.4 kg (223 lb 9.6 oz) BMI 37.79 kg/m?? Physical Exam Vitals signs reviewed. Constitutional: Appearance: Normal appearance. HENT: Head: Normocephalic. Eyes: Pupils: Pupils are equal, round, and reactive to light. Pulmonary: Effort: Pulmonary effort is normal. Musculoskeletal: Normal range of motion. Skin: General: Skin is warm and dry. Neurological: Mental Status: She is alert. Mental Status LOC: Alert Attention: Normal Speech: Abnormal Hypophonic: Mild Monotone: Mild Language: Normal Intellect: Normal Affect: Abnormal Affect Tone: mildly sad Affect Range: masked Affect Appropriateness: appropriate Mood: Abnormal Mood Details: mildly depressed Thought Content: Normal Thought Process: Normal Insight: Normal Cranial Nerves Pupils Right: 4 Pupils Left: 4 Shape - Right: Round Shape - Left: Round Extraocular Movements: Full Convergence: Full Nystagmus: None Cranial Nerves Continued Facial Strength - Both: Normal Facial Involuntary Movements: Normal Motor - Involuntary Part 1 Chorea: Absent Dystonia: Absent Tics: Absent UPDRS - Unified Parkinson's Disease Rating Scale UPDRS Last Medication Given : Carbidopa/Levodopa Last med given Date: 09/16/19 Last med given time: 829 ON/OFF: ON UPDRS PART III - Motor Examination - Using a 0 to 4 rating scale (with 0 being normal) Tremor at rest of FACE, LIPS, CHIN: 0 Tremor at rest RIGHT hand: 0 Tremor at rest LEFT hand: 0 Tremor at rest RIGHT foot: 0 Tremor at rest LEFT foot: 0 Action/postural tremor RIGHT hand: 1 Action/postural tremor LEFT hand: 0 Rigidity NECK: 0 Rigidity RIGHT upper extremity: 1 Rigidity LEFT upper extremity: 1 Rigidity RIGHT lower extremity: 1 Rigidity LEFT lower extremity: 1 Finger taps RIGHT hand: 1 Finger taps LEFT hand: 1 Hand Movements RIGHT hand: 1 Hand Movements LEFT hand: 0 Rapid Alternating Movements of Hands RUE: 1 Rapid Alternating Movements of Hands LUE: 1 Agility RIGHT le.5 Agility LEFT le Speech: 2 - Monotone, slurred but understandable, moderately impaired. Facial expression: 2 - Slight but definitely abnormal diminution of facial expression. Arising from chair: 2 - Pushes self up from arms of seat. Posture: 1 - Not quite erect, slightly stooped posture, could be normal for older person. Gait: 2 - Walks with difficulty, but requires little or no assistance, may have some festination, short steps,or propulsion. Postural stability: 1 - Retropulsion, but recovers unaided. Body bradykinesia and hypokinesia: 2 - Mild degree of slowness and poverty of movement which is definitely abnormal.Alternatively, some reduced amplitude. Part III Total Score: 26.5 Assessment/Plan Diagnoses and all orders for this visit: Parkinsonism, unspecified Parkinsonism type (CMS/HCC) (G20) (Primary) Assessment & Plan: Ms. Bansal is a 73 y/o woman presenting for evaluation of gait difficulties and falls as well as imaging findings concerning for NPH. She has features of Parkinsonism on exam, including asymmetric rigidity and bradykinesia with postural instability, though no tremor. Other symptoms include urge inco ntinence, constipation (better since stopping oxycodone), and mild [...] stop citalopram in favor of duloxetine and thiscaused worsened depression so she would like to [...] lumbar drain depending on response to CD/LD. Anxiety and depression (F41.9, F32.9) Return in about 33 weeks (around 05/04/2020). N PICKER documented in this encounter Miscellaneous Notes * Assessment & Plan Note - Shruthi Rivero NP - 09/16/2019 11:00 AM PECAN PICKER Associated Problem(s): Parkinsonism (HCC) Ms. Bansal is a 73 y/o woman presenting for evaluation of gait difficulties and falls as well as imaging findings concerning for NPH. She has features of Parkinsonism on exam, including asymmetric rigidity and bradykinesia with postural instability, though no tremor. Other symptoms include urge inco ntinence, constipation (better since stopping oxycodone), and mild [...] stop citalopram in favor of duloxetine and thiscaused worsened depression so she would like to [...] lumbar drain depending on response to CD/LD. N PICKER N PICKER documented in this encounter Plan of Treatment Not on file documented as of this encounter Visit Diagnoses Diagnosis Parkinsonism, unspecified Parkinsonism type (HCC)- Primary Anxiety and depression documented in this encounter Discontinued Medications Medication Sig Discontinue Reason Start Date End Da te cyclobenzaprine (FLEXERIL) 5 mg tablet Take by mouth 3 (three) times a day as needed. 09/12/2018 09/16/2019 hydroCHLOROthiazide (HYDRODIURIL) 12.5 mg tablet Take 12.5 mg by mouth daily. 08/08/2018 09/16/2019 NOT IN DATABASE, PRESCRIPTION, Drug name: Domperidone Dose: 10mg Route: Frequency: 1 tid 06/10/2019 09/16/[address] (CYMBALTA) 30 mg capsule Take 1 cap by mouth daily for 3 days then discontinue 09/16/2019 carbidopa-levodopa (SINEMET) 25-100 mg per tabletIndications:Park insonism Take 1 1/2 tab by mouth 3 times daily. Take with meals Reorder 12/02/2018 09/16/2019 documented as of this encounter Historical Medications * This list may reflect changes made after this encounter. UNABLE TO FIND Medical Marijuana PRN rarely for pain at night 0 cholecalciferol (VITAMIN D-3) 1000 unit tablet Take 1,000 Units by mouth daily 0 added in this encounter Care Teams Delivery Route Driver Relationship Specialty Start Date End Date Willy Cummings MD [address] [place] [address] PCP - General 08/06/17 12/20/19 documented as of this encounter
--- OUTSIDE RECORDS SUMMARY | 2024-10-31 03:51 | XMS_ITS | Encounter Summary ---
Author Organization [facility] Address [address] [place] [id number] Care Team Providers Care Divemaster Name Role Phone Cecilia Lim MD Primary Care Provider Rodolfo Mantilla MD Unavailable Reason for Referral * Diagnostic Imaging (Routine) - Closed Specialty Diagnoses / Procedures Referred By Jonyac benoit Referred To Contact Radiology Diagnoses NPH (normal pressure hydrocephalus) (HCC) Procedures CT Head WO Contrast Leobardo Perez MD Phone: tel: fax: [address] [phone] Referral ID Status Reason Start Date Expiration Date Visits Re quested Visits Authorized [id number] Closed 07/29/2020 08/28/2021 1 1 ER 2ND SHIFT Reason for Visit * Diagnostic Imaging (Routine) - Closed Specialty Diagnoses / Procedures Referred By Devin laboy Referred To Contact Radiology Diagnoses NPH (normal pressure hydrocephalus) (HCC) Procedures CT Head WO Contrast Leobardo Perez MD Phone: tel: fax: [address] [phone] Referral ID Status Reason Start Date Expiration Date Visits Re quested Visits Authorized [id number] Closed 07/29/2020 08/28/2021 1 1 Encounter Details Date Type Department Care Team (Latest Contact Info) Description 08/28/2020 11:55 AM WELDER 2ND SHIFT - 08/28/2020 11:59 PM WELDER 2ND SHIFT Hospital Encounter [facility] [place] [address] Leobardo Perez MD [address] [place] [address] NPH (normal pressure hydrocephalus) ([facility]) Discharge Disposition: Discharge to home [...] on file Legal Sex Female 1:04 AM WELDER 2ND SHIFT Gender Identity Not on file Sexual Orientation [...] 3 times per day 810 tablet 3 05/09/2020 09/04/2020 docusate sodium (COLACE) 100 mg capsuleIndicatio ns:constipation, Stool Softener Take 1 capsule (100 mg total) by mouth 2 (two) times a day 07/28/2020 12/31/2020 gabapentin (NEURONTIN) 300 mg capsule Take 600 mg by mouth 2 (two) times a day 06/02/2022 hydroCHLOROthiaz laila (HYDRODIURIL) 12.5 mg tablet Take 12.5 mg by mouth daily 04/20/2020 09/03/2021 oxyCODONE (ROXICODONE) 5 mg immediate release tabletIndication s:Pain Take 1 tablet (5 mg total) by mouth every 4 (four) hours as needed for pain 15 tablet 07/28/2020 12/31/2020 traZODone (DESYREL) 100 mg tabletIndication s:sleep Take [...] CONTRAST Schedule Routine, Read Routine (OP Routine) 08/28/2020 12:08 PM WELDER 2ND SHIFT NPH (normal pressure hydrocephalus) ([facility]) documented in this encounter Results * CT Head WO Contrast (08/28/2020 12:08 PM WELDER 2ND SHIFT) Anatomical Region Laterality Modality Head and Neck N/A Computed Tomogra phy 08/28/2020 12:2 1 PM WELDER 2ND SHIFT Impressions 08/28/2020 12:21 PM WELDER 2ND SHIFT 1. ??Ventriculomegaly, stable following placement of right posterior parietal approach ventricular catheter. Electronically signed by: Jayro Romero M.D. Narrative 08/28/2020 12:21 PM WELDER 2ND SHIFT EXAMINATION: CT head without contrast HISTORY: Patient is a 74-year-old female with normal pressure hydrocephalus. TECHNIQUE: Noncontrast CT of the brain was performed with images acquired from skull base to vertex. COMPARISON: CT the head performed on 07/26/2020. FINDINGS: Topogram demonstrates no lytic lesions or fractures. ??Since the prior examination, a ventricular catheter has been inserted from a right posterior parietal approach and terminates within the body of the left lateral ventricle. ??The ventricular system is unchanged in size and configuration. ??Again, the ventricles are dilated out of proportion to patient's overall volume loss. ??Atherosclerotic calcifications are present within the cavernous portions of both internal carotid arteries and within the V4 segment of the right vertebral artery. ??There is no acute intracranial hemorrhage. . No mass effect or midline shift is present. The figueroa-white matter differentiation is normal. Aside from bilateral ocular lens replacements, the orbits are normal. The visualized portions of the mastoids are normal. Mild mucosal thickening is present within the maxillary sinuses. No acute fractures are identified. Procedure Note Jayro oRmero MD - 08/28/2020 EXAMINATION: CT head without contrast HISTORY: Patient is a 74-year-old female with normal pressure hydrocephalus. TECHNIQUE: Noncontrast CT of the brain was performed with images acquired from skull base to vertex. COMPARISON: CT the head performed on 07/26/2020. FINDINGS: Topogram demonstrates no lytic lesions or fractures. Since the prior examination, a ventricular catheter has been inserted from a right posterior parietal approach and terminates within the body of the left lateral ventricle. The ventricular system is unchanged in size and configuration. Again, the ventricles are dilated out of proportion to patient's overall volume loss. Atherosclerotic calcifications are present within the cavernous portions of both internal carotid arteries and within the V4 segment of the right vertebral artery. There is no acute intracranial hemorrhage. . No mass effect or midline shift is present. The figueroa-white matter differentiation is normal. Aside from bilateral ocular lens replacements, the orbits are normal. The visualized portions of the mastoids are normal. Mild mucosal thickening is present within the maxillary sinuses. No acute fractures are identified. IMPRESSION: 1. Ventriculomegaly, stable following placement of right posterior parietal approach ventricular catheter. Electronically signed by: Jayro Romero M.D. Leobardo Perez MD IMG CT PROCEDURES Final Resul t documented in this encounter Visit Diagnoses Diagnosis NPH (normal pressure hydrocephalus) (HCC) Idiopathic normal pressure hydrocephalus (INPH) documented in this encounter Care Teams Divemaster Relationship Specialty Start Date End Date Cecilia Lim MD PCP - General Family Medicine 12/21/19 12/30/20 Rodolfo Mantilla MD [address] [place] [address] Consulting Physician Neurology 12/21/19 documented as of this encounter
--- OUTSIDE RECORDS SUMMARY | 2024-10-31 03:51 | XMS_ITS | Encounter Summary ---
Author Organization [facility] Healthcare Address [address] [place] [address] Care Team Providers Care Electrical Development Engineer Name Role Phone Cecilia Lim MD Primary Care Provider Rodolfo Mantilla MD Unavailable Encounter Details Date Type Department Care Team (Late st Contact Info) Description 07/27/2020 7:28 AM CDT Anesthesia Event [facility] Operating Room [address] [place] [address] Carrie Clark MD [address] [place] [address] [place] Arce NP [address] [facility] [phone] [place] [address] Anesthesia Record Procedure Summary Procedure Name Responsible Anesthesiologist Anesthesia Start Time Anesthesia Stop Time INSERTION / REVISION SHUNT - VENTRICULOPERITONEAL (Right: Head) Carrie Clark MD 07/27/20 0728 07/27/20 0932 Events Date Time Event Comment 07/27/2020 0527 In Preop 0713 0728 An Start 0730 In Room 0731 An Start Data 0739 An Induction The patient was reevaluated immediately before moderate or deep sedation use and before anesthesia induction. 0742 An Intubation 0750 Anesthesia Ready 0834 Proc Start 0836 Incision Start 0914 Proc Fin 0918 An Extubation 0923 Out of Room 0923 an stop data 0931 Handoff to RN I completed my handoff to the receiving nurse during which we: 1. Patient identified 2. Responsible provider identified 3. Pertinent medical history reviewed 4. Procedure type and surgical course discussed 5. Intraoperative anesthetic management and any significant issues discussed 6. Expectations and concerns for postop period discussed 7. Questions solicited from receiving nurse 8. Patient disposition at the time of handoff: PACU 0932 An Stop 1042 Release from care Meds Name Total lidocaine 1 % PF 100 mg fentaNYL 150 mcg propofol 150 mg rocuronium 40 mg phenylephrine 100 mcg/mL 700 mcg ePHEDrine 25 mg glycopyrrolate 0.4 mg neostigmine injection 1 mg/mL 2 mg ceFAZolin 2,000 mg dexamethasone 4 mg/mL 4 mg phenylephrine infusion (100 mcg/mL) 5.6 mg calcium chloride 1 g vasopressin 0.4 Units ondansetron (ZOFRAN) injection 4 mg 4 mg sodium chloride 0.9% infusion 700 mL Lactated Ringer's (LR) infusion 400 mL * Agents Name O2% N2O O2 Air Sevoflurane Inspired Sevoflurane * Blood No blood administrations on file. Lines, Drains, and Airways Type Details Placement Removal Peripheral IV Placement Date: 07/23/20; Placement Time: 1609; Catheter Size: 20 G; Orientation: Left; Location: Antecubital; Site Prep: Chlorhexidine; Inserted by: Nerissa Devries RN; Insertion Attempts: 1; Patient Tolerance: Tolerated well 07/23/201609 by Nerissa Devries RN Peripheral IV Placement Date: 07/27/20; Placement Time: 219; Catheter Size: 22 G; Orientation: Anterior, Proximal, Right; Location: Forearm; Site Prep: Chlorhexidine; Technique: Anatomical landmarks; Inserted by: Nishi Jose RN; Insertion Attempts: 2; Patient Tolerance: Tolerated well; Removal Date: 07/27/20; Removal Time: 220007/27/20219 by Nishi Jose RN 07/27/202200 by Rochelle Murdock RN ETT Placement Date: 07/27/20; Placement Time: 741 (created via procedure documentation); Mask Ventilation: 2; Technique: Direct laryngoscopy; Type: ETT - single; Single Lumen Tube Size: 7 mm; Cuffed: Yes; Laryngoscope: Mazin; Blade Size: 4; Location: Oral; Grade View: Grade IIa; Insertion Attempts: 1; Placement Verification: Auscultation, Capnometry; Removal Date: 07/27/20; Removal Time: 0918 07/27/20 0742 by Mar Aguilar BS 07/27/20 0918 by Shanelle Martin CRNA RETIRED Surgical Site 07/27/20; 0826; Ri ght; Head; 09/27/24 (Retired LDA, Removed/Completed by Epic with LDA Utility); 1213 (Retired LDA, Removed/Completed by Epic with LDA Utility) 07/27/20 0826 by Cortney Funk RN 09/27/24 1213 by Discharge Provider, Automatic RETIRED Surgical Site 07/27/20; 0826; Ri ght; Abdomen; 09/27/24 (Retired LDA, Removed/Completed by Epic with LDA Utility); 1213 (Retired LDA, Removed/Completed by Epic with LDA Utility) 07/27/20 0826 by Cortney Funk RN 09/27/24 1213 by Discharge Provider, Automatic Peripheral IV Placement Date: 07/27/20; Placement Time: 0934 (created via procedure documentation); Catheter Size: 18 G; Orientation: Right; Location: Foot; Site Prep: Chlorhexidine; Insertion Attempts: 1; Removal Date: 07/27/20; Removal Time: 1045; Removal Reason: Therapy completed 07/27/20 0934 by Mar Aguilar BS 07/27/20 1045 by Pati Pacheco RN documented in this encounter Social History Tobacco Use Types Packs/Day Years Used Date Smoking Tobacco: Former Cigarettes Q uit: 07/27/1970 Smokeless Tobacco: Never Alcohol Use Standard Drinks/Week Comments Yes 1 (1 standard drink = 0.6 oz pur e alcohol) Comments No Sex and Gender Information Value Date Recorded Sex Assigned at Not on file Legal Sex Female 1:04 AM [employer] AUTHOR Gender Identity Not on file Sexual Orientation Not on file Occupation Industry Job Start Date Job End Date retired Not on file Not on file Not on file documented as of this encounter OR Notes * Anesthesia Postprocedure Evaluation - Joesph De Los Santos MD - 07/27/2020 10:07 AM CDT Patient: Olga Bansal Procedure Summary Date: 07/27/20 Room / Location: [facility] OR POD 5 ROOM 225 / [facility] OR POD 5 Anesthesia Start: 727 Anesthesia Stop: 931 Procedure: INSERTION / REVISION SHUNT - VENTRICULOPERITONEAL (Right Head) Diagnosis: NPH (normal pressure hydrocephalus) (CMS/HCC) (NPH (normal pressure hydrocephalus) (CMS/HCC) [G91.2]) Surgeon: Leobardo Perez MD Responsible Provider: Carrie Chapman MD Anesthesia Type: general ASA Status: 3 Anesthesia Type: general Last vitals BP (!) 179/73 Pulse 79 Temp 36 ??C (96.8 ??F) (Temporal) Resp 25 SpO2 99% Anesthesia Post Evaluation Patient location during evaluation: PACU Patient participation: complete - patient participated Level of consciousness: fully awake Pain management: satisfactory to patient Airway patency: adequate Evidence of recall: no Anesthetic complications: no Cardiovascular status: acceptable Respiratory status: acceptable Hydration status: acceptable Pt is: normothermic Nausea/Vomiting status: none Comments: Going to Ou Cosigned by Magdy Figueroa MD at 07/27/2020 10:40 AM CDT * Anesthesia Procedure Notes - Shanelle Martin CRNA - 07/27/2020 9:33 AM CDTAssociated Order(s): Peripheral IV Catheter Peripheral IV Catheter Patient location: OR Start time: 07/27/2020 7:50 AM Staff: Placed by: KNITTING INSPECTOR: Shanelle Martin CRNA Other staff: SEAN Huston Preprocedure prep: Prep solution: chlorhexadine PPE: provider hat/mask and gloves PIV line: Laterality: right Site: foot Catheter size: 18 g Technique: palpatation and direct visualization Procedure details: occlusive dressing applied and good blood return Number of attempts: 1 Assessment: Events: patient tolerated procedure well with no complications * Anesthesia Procedure Notes - Shanelle Martin CRNA - 07/27/2020 8:48 AM CDTAssociated Order(s): Airway Airway Patient location: OR Urgency: elective Date/time: 07/27/2020 7:42 AM Indications for airway management: anesthesia Difficult airway: no Staff: Supervising provider: Carrie Chapman MD Placed by: NIEVES: Shanelle Martin CRNA Other staff: SEAN Huston Emergent airway documentation: Risks and benefits discussed: yes Consent obtained: yes Consent given by: patient Airway prep: Preoxygenated: yes Patient position: sniffing Mask difficulty assessment: 2 - vent by mask + OA or adjuvant Sedation level during airway: GA Final airway details: Final airway type: endotracheal airway Tube type: ETT ETT size: 7.0 mm Cuffed: yes Technique used for successful ETT placement: direct laryngoscopy Devices/Methods used in placement: intubating stylet Insertion site: oral Blade type: Mazin Blade size: 4 Cormack-Lehane (direct): grade IIa - partial view of glottis Cuff inflated with: air Placement verified by: auscultation and CO2 detection Airway secured with: silk tape Number of attempts: 1 * Anesthesia Preprocedure Evaluation - Carrie Clark MD - 07/26/2020 11:18 AM CDT Images from the original note were not included. [facility] Preoperative Assessment and Planning Preoperative Evaluation Record Evaluation type/location: IPAP at [facility] Planned procedure site: 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 female Procedure(s): INSERTION / REVISION SHUNT - VENTRICULOPERITONEAL Pre-Op Diagnosis Codes: * NPH (normal pressure hydrocephalus) (CMS/HCC) [G91.2] HISTORY HPI Olga Bansal, 74 year old female, with history of HLD, hypothyroidism, HTN, Thalassemia minor, RLEDVT (2018) and parkinson's disease undergoing evaluation prior to INSERTION / REVISION SHUNT - VENTRICULOPERITONEAL for normal pressure hydrocephalus. Past Medical History Neurological + Psychiatric history (on daily medication, mood stable) - depression + Neuromuscular disease - Parkinson's disease. Pertinent negatives: seizures; CVA/stroke; TIA; CEA; dementia/mild cognitive impairment and carotidartery stent Cardiovascular + Hypertension Hypertension year diagnosed: 2009. Typical systolic BP - 145 Typical diastolic BP - 65 + Hyperlipidemia (on statin) + DVT/PE (RLE DVT following R knee replacement, history of IVC filter that has since been removed )Number of DVT/PE episodes: 1. Last VTE date: 2017. Pertinent negatives: CAD ; [place] ; CABG ; systolic/diastolic dysfunction w/o CHF ; valvular heart disease; valve replacement; atrial fibrillation; arrhythmia; pacemaker/ICD; PVD; negative for CHF; drug-eluting stent(s); bare metal stent(s); unknown stent(s) type and coronary angioplasty Respiratory Pertinent negatives: COPD; asthma; sleep apnea (JENNIFFER); pulmonary hypertension; no O2 use outside thehospital and non-smoker Hepatic / Heme + History of anemia (Thalassemia minor, most recent H/H 10.9/35.7) + History of Yaneth positive (history of Anti-E, Anti little c, and AUS; Spoke with Blood Bank- difficult cross match due to little c, 1 unit available in house, red cross involvement needed for additional units ) - difficult cross-match Pertinent negatives: liver disease and history of thrombocytopenia Gastrointestinal + GERD (rare) - does not use medication. Asymptomatic. Renal / Pertinent negatives: renal disease Musculoskeletal/Pain Pertinent negatives: chronic pain; osteoarthritis and headaches Endocrine / Other + Thyroid disease - hypothyroidism + Obesity (BMI >30) (BMI 38) Pertinent negatives: diabetes mellitus (prediabetes, hgbA1C 5.8 07/23/20 ); cancer history and infectious disease Functional Capacity Functional capacity: <4 METs Functional capacity limited by a non-cardiovascular, non-pulmonary condition. Comments: Limited activity 2/2 Parkinson's and generalized weakness. Chronic mild SOB with exertion. Denies CP. Day of Surgery assessments status unknown: s/p hysterectomy Review of Systems + SOB (mild SOB with exertion, chronic) + pedal edema (BLE, chronic ) + previous transfusion (last transfusion 2018, r/t knee surgery, denies history of transfusion reactions ) + dizziness (with quick position changes, intermittent ) + muscle weakness (generalized) + vision loss (wears corrective lenses ) + nausea/vomiting (r/t medications ) Pertinent negatives: productive cough; wheezing; recent cold/flu; fever; chest pain; palpitations; orthopnea; PND; heavy menses; transfusion reaction; melena/hematochezia; easy bruising; bleeding problems; syncope; chronic pain; numbness/tingling; hard of hearing; heartburn; dysphagia; diarrhea; den tures/partials; chipped/loose teeth; abdominal pain; diaphoresis and no unexpected weight change PAT Summary and Plans Cardiac risk classification of planned procedure: intermediate cardiac risk. Preoperative assessment status: complete. Initial preoperative evaluation discussed with: Jazzmine Sinclair MD Additional comments: Olga Bansal is a 74 y.o. female who is being evaluated prior to undergoingan intermediate cardiac risk surgery. Revised Cardiac Risk Index factors are (none) for a total RCRI of 0 out of 6. Functional capacity is <4 METs. Case discussed with CPAP attending. Patient is currently on 1 L O2 via nasal cannula. Reviewed recent CXR. Obstructive sleep apnea (JENNIFFER) screening status - not completed per nursing staff. Blood bank needs for day of procedure: T&C 2 unit pRBCs Pending labs/tests include: T&S obtained 07/26 pending, to be reviewed by surgical team. Labs from 07/23 -T&S, CBC, CMP, PT/INR, and PTT - reviewed and significant for T&S yaneth positive The patient has a history of positive indirect Yaneth and is having a surgery where blood antibodies are pertinent. The antibody type is pending verification (prior history of Anti-E, Anti little c, and AUS). Per blood bank, anticipated cross-match difficulty is difficult with anticipated necessityof obtaining blood units from the [facility]. Based on this information, we will initiate the following blood plan for the day of surgery: Type and cross 2 units pRBCs. For day of surgery blood bank specimen availability, the plan is that the current 3- day T&S specimen is anticipated to be available. Patient with No known exposure to COVID19 and no concerning symptoms of COVID19. Plan for pre-procedure COVID19 testing: COVID19 testing was completed on 07/23/20 - results: not detected. +Patient reports history of PONV. IPAP assessment complete. Preoperative evaluation performed by Norma Kendrick NP on 07/26/20 at 12:00 PM. . Patient Active Problem List Diagnosis ??? Cerebral ventriculomegaly ??? Parkinsonism (CMS/HCC) ??? Anemia ??? History of knee surgery ??? Infection of prosthetic joint (CMS/HCC) ??? Knee pain ??? Pain of hand ??? Anxiety and depression ??? NPH (normal pressure hydrocephalus) (CMS/HCC) ??? 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 to medical condition Past Medical History: Diagnosis Date ??? Anemia ??? Arthritis ??? Blood clot associated with vein wall inflammation ??? Cataract ??? Depression ??? Diabetes mellitus (CMS/HCC) ??? History of transfusion ??? Hypertension ??? Osteopenia ??? Thalassemia minor ??? Thyroid disease hypothyroidism Past Surgical History: Procedure Laterality Date ??? CARPAL TUNNEL RELEASE bilat. ??? CHOLECYSTECTOMY ??? HYSTERECTOMY ??? KNEE ARTHROSCOPY bilat. knee replacement ??? LUMBAR PUNCTURE WO INJECTION, DIAGNOSTIC N/A 07/24/2020 ??? REMOVE VENA CAVA FILTER N/A 05/21/2018 ??? THYROIDECTOMY, PARTIAL OB History No obstetric history on file. Allergies Allergen Reactions ??? Celebrex [Celecoxib] Nausea only ??? Sulfa (Sulfonamide Antibiotics) Other (See comments) and Unknown Reaction: Taking? Last Dose Start Date End Date Provider atorvastatin (LIPITOR) 10 mg tablet -- -- Historical Provider, carbidopa-levodopa (SINEMET) 25-100 mg per tablet 05/09/20 -- Shruthi Rivero NP Take 4 tabs 3 times per day gabapentin (NEURONTIN) 300 mg capsule -- -- Historical Provider, hydroCHLOROthiazide (HYDRODIURIL) 12.5 mg tablet 04/20/20 -- Historical Provider, levothyroxine (SYNTHROID, LEVOTHROID) 100 mcg tablet 08/08/18 -- Historical Provider, metoprolol XL (TOPROL-XL) 50 mg 24 hr tablet -- -- Historical Provider, morphine ER (MS CONTIN) 15 mg 12 hr tablet -- -- Historical Provider, traZODone (DESYREL) 100 mg tablet -- -- Historical Provider, UNABLE TO FIND -- -- Historical Provider, valsartan (DIOVAN) 160 mg tablet -- -- Historical Provider, venlafaxine XR (EFFEXOR-XR) 37.5 mg 24 hr capsule 12/15/19 -- Historical Provider, Current Facility-Administered Medications: ??? acetaminophen (TYLENOL) tablet 650 mg, 650 mg, oral, Q4H PRN, 650 mg at 07/25/20 1153 ??? albuterol 2.5 mg/0.5 mL nebulizer solution 2.5 mg, 2.5 mg, nebulization, Q4H PRN (RT), 2.5 mg at 07/24/20 1018 AND ipratropium (ATROVENT) 0.02 % nebulizer solution 0.5 mg, 0.5 mg, nebulization, Q4H PRN (RT), 0.5 mg at 07/24/20 1018 ??? atorvastatin (LIPITOR) tablet 10 mg, 10 mg, oral, Daily, 10 mg at 07/25/202032 ??? carbidopa-levodopa (SINEMET) 25-100 mg per tablet 4 tablet, 4 tablet, oral, TID AC, 4 tablet at113 ??? docusate sodium (COLACE) capsule 100 mg, 100 mg, oral, BID, 100 mg at 07/26/20 0910 OR docusate (COLACE) 10 mg/mL oral liquid 100 mg, 100 mg, feeding tube, BID ??? famotidine (PEPCID) tablet 20 mg, 20 mg, oral, BID, 20 mg at 07/26/20909 ??? gabapentin (NEURONTIN) tablet 600 mg, 600 mg, oral, BID, 600 mg at 07/26/20909 ??? heparin 5,000 unit/mL injection 5,000 Units, 5,000 Units, subcutaneous, Q12H NICKI, 5,000 Units at 07/26/20 0911 ??? hydroCHLOROthiazide (HYDRODIURIL) tablet 12.5 mg, 12.5 mg, oral, Daily, 12.5 mg at 07/26/20909 ??? levothyroxine (SYNTHROID) tablet 100 mcg, 100 mcg, oral, Daily, 100 mcg at 07/26/20551 ??? losartan (COZAAR) tablet 100 mg, 100 mg, oral, Daily, 100 mg at 07/26/20909 ??? metoprolol XL (TOPROL-XL) extended release tablet 50 mg, 50 mg, oral, Daily, 50 mg at 07/26/20909 ??? morphine ER (MS CONTIN) extended release tablet 15 mg, 15 mg, oral, BID, 15 mg at 07/26/20909 ??? ondansetron (ZOFRAN) injection 4 mg, 4 mg, intravenous, Q6H PRN, 4 mg at 07/26/20910 ??? oxyCODONE (ROXICODONE) tablet 5 mg, 5 mg, oral, Q4H PRN, 5 mg at 07/25/202 ??? sodium chloride 0.9% flush 0.5-20 mL, 0.5-20 mL, intra-catheter, Q8H NICKI, 10 mL at 07/26/20551 ??? sodium chloride 0.9% flush 0.5-20 mL, 0.5-20 mL, intra-catheter, PRN ??? sodium chloride 0.9% infusion, 75 mL/hr, intravenous, Continuous ??? venlafaxine XR (EFFEXOR-XR) extended release capsule 150 mg, 150 mg, oral, Daily with breakfast, 150 mg at 07/26/20909 Social History Tobacco Use Smoking Status Former Smoker ??? Types: Cigarettes Smokeless Tobacco Never Used Substance and Sexual Activity Alcohol Use Yes ??? Alcohol/week: 1.0 standard drinks ??? Types: 1 Glasses of wine per week Substance and Sexual Activity Drug Use No Family History Problem Relation Age of Onset ??? Diabetes Son ??? Early Son ??? Other (NPH) Sister 75 shunt placed 1yr ago with improvement in gait ??? Heart disease Father ??? Heart disease Brother PAT Physical Exam Airway Exam: Mallampati: III Cervical ROM: FROM TM distance: 3 Cardiovascular Exam: Rate: regular Rhythm: regular Negative for Murmur Negative for peripheral edema Pulmonary Exam: LCTA, bilat EENT Exam: trachea midline Dental Exam: Appears intact Skin Exam: Skin is warm and dry. Abdominal exam: Abdomen is soft. Bowel sounds are present. Current state: Patient's current state is cooperative and interactive. Additional comments: 20 G PIV left AC Vitals: 07/26/20 0738 07/26/20 0805 07/26/20 1100 BP: 127/60 145/59 Pulse: 71 72 Resp: 22 Temp: 37.2 ??C (98.9 ??F) SpO2: 97% 95% Relevant diagnostics: ECG(s): 07/23/20: 70 bpm Baseline wander Normal sinus rhythm Moderate voltage criteria for LVH, may be normal variant Borderline ECG Echocardiogram(s): N/A Stress test(s): 09/01/14: IMPRESSION: ?? 1. NO LEFT VENTRICULAR ISCHEMIA OR INFARCTION. 2. NORMAL LEFT VENTRICULAR EJECTION FRACTION OF 65%. 3. NO LEFT VENTRICULAR WALL MOTION ABNORMALITY ON CINE IMAGES. Cardiac catheterization(s): N/A PFT(s): N/A Vascular studies: N/A Other: N/A PT: 07/23/2020: 12.5 sec INR: 07/23/2020: 1.2 APTT: 07/23/2020: 32 sec Hgb A1C: 07/23/2020: 5.8 %* CBC RBC: 07/23/2020: 5.63 M/cumm* RDW: No results found for requested labs within last 720 hours. MCHC: 07/23/2020: 30.5 g/dL* MCH: 07/23/2020: 19.4 pg* MCV: 07/23/2020: 63.4 fL* Hct: 07/23/2020: 35.7 % Hgb: 07/23/2020: 10.9 g/dL* WBC: 07/23/2020: 5.8 K/cumm MPV: 07/23/2020: 10.0 fL Platelets: 07/23/2020: 172 K/cumm RDW CV: 07/23/2020: 15.3 %* RDW Sd: 07/23/2020: 33.2 fL* BMP Glucose: 07/23/2020: 169 mg/dL Calcium: 07/23/2020: 9.0 mg/dL Sodium: 07/23/2020: 139 mmol/L Potassium: 07/23/2020: 4.1 mmol/L CO2: 07/23/2020: 31 mmol/L Chloride: 07/23/2020: 102 mmol/L BUN: 07/23/2020: 19 mg/dL Creatinine: 07/23/2020: 0.83 mg/dL Short Blessed Total Score: 5 DOS Physical Exam Medical history, medications, and allergies reviewed. Attestation: With today's edits, I endorse the findings of the anesthesia pre-evaluation assessment dated: 07/26/2020. Airway Exam: Mallampati: III Cervical ROM: FROM TM distance: 3 Cardiovascular Exam: Rate: regular Rhythm: regular Pulmonary Exam: LCTA EENT Exam: trachea midline Dental Exam: Chipped Skin Exam: Skin is warm. Current state: Patient's current state is cooperative and interactive. Anesthesia Plan ASA 3 My patient is approved for the Anesthesia Controlled Medication protocol when under care of a KNITTING INSPECTOR Planned anesthesia: General Team communication plan: oral ET tube Induction: Induction: intravenous and RSI. Postoperative Plan: Postoperative administration opioids intended. No postoperative mechanical ventilation intended. Patient's planned disposition post procedure is Floor. No trial extubation planned. Informed Consent: Discussed plan with KNITTING INSPECTOR. Anesthesia plan and risks discussed with patient. Plan and Consent Comments: Anesthesia Plan, Risk and Complications of oral, nerve, or vascular injury, transfusion related reactions, bleeding, infections, pain, PONV, perioperative cardiac event and stroke discussed and accepted by the patient. She understood and wish to proceed. Questions answered. Consent and Attending signature: I and/or my designee have discussed the anesthesia plan, benefits, possible alternatives, parental presence at time of induction (if indicated), and clinically relevant risks that may include dental injury, unintentional awareness, and/or other complications. The patient and/or parent/legal guardian understand, and agree to proceed. All questions answered. documented in this encounter Plan of Treatment Not on file documented as of this encounter Procedures Procedure Name Priority Date/Time Associated Diagnosis Comments [facility] AN PROCEDURE PLACEHOLDER Routine 07/27/2020 9:33 AM CDT VA AN PROCEDURE PLACEHOLDER Routine 07/27/2020 8:48 AM CDT VA AN ELECTIVE ENDOTRACHEAL AIRWAY Routine 07/27/2020 8:48 AM CDT documented in this encounter Results * VA AN PROCEDURE PLACEHOLDER (07/27/2020 9:33 AM CDT) Shanelle Horner CRNA - 07/27/2020 9:33 AM CDT Shanelle Martin CRNA ? 07/27/2020 ??9:34 AM Peripheral IV Catheter Patient location: OR Start time: 07/27/2020 7:50 AM Staff: Placed by: KNITTING INSPECTOR: Shanelle Martin CRNA Other staff: SEAN Huston Preprocedure prep: Prep solution: chlorhexadine PPE: provider hat/mask and gloves PIV line: Laterality: right Site: foot Catheter size: 18 g Technique: palpatation and direct visualization Procedure details: occlusive dressing applied and good blood return Number of attempts: 1 Assessment: Events: patient tolerated procedure well with no complications us Carrie Chapman MD ANESTHESIA ORDERABLES Fin al Result * VA AN ELECTIVE ENDOTRACHEAL AIRWAY, VA AN PROCEDURE PLACEHOLDER (07/27/2020 8:48 AM CDT) Shanelle Horner CRNA - 07/27/2020 8:48 AM CDT Shanelle Martin CRNA ? 07/27/2020 ??8:51 AM Airway Patient location: OR Urgency: elective Date/time: 07/27/2020 7:42 AM Indications for airway management: anesthesia Difficult airway: no Staff: Supervising provider: Carrie Chapman MD Placed by: KNITTING INSPECTOR: Shanelle Martin CRNA Other staff: SEAN Huston Emergent airway documentation: Risks and benefits discussed: yes Consent obtained: yes Consent given by: patient Airway prep: Preoxygenated: yes Patient position: sniffing Mask difficulty assessment: 2 - vent by mask + OA or adjuvant Sedation level during airway: GA Final airway details: Final airway type: endotracheal airway Tube type: ETT ETT size: 7.0 mm Cuffed: yes Technique used for successful ETT placement: direct laryngoscopy Devices/Methods used in placement: intubating stylet Insertion site: oral Blade type: Mazin Blade size: 4 Cormack-Lehane (direct): grade IIa - partial view of glottis Cuff inflated with: air Placement verified by: auscultation and CO2 detection Airway secured with: silk tape Number of attempts: 1 Carrie Chapman MD ANESTHESIA ORDERABLES Fin al Result documented in this encounter Visit Diagnoses Not on filedocumented in this encounter Administered Medications Inactive Administered Medications - up to 3 most recent administrations Medication Order MAR Action Action Date Dose Rate Site calcium chloride IV syringe As needed, Starting on Thu07/27/20 at 0815, Anesthesia Intra-op Given 07/27/2020 8:30 AM CDT 0.5 g Given 07/27/2020 8:15 AM CDT 0.5 g ceFAZolin (ANCEF) injection intravenous, Administer over 3 Minutes, As needed, Starting on Thu07/27/20 at 0815, Anesthesia Intra-op Given 07/27/2020 8:15 AM CDT 2,000 mg dexAMETHasone (DECADRON) 4 mg/mL injection Administer over 2 Minutes, As needed, Starting on Thu07/27/20 at 0830, Anesthesia Intra-op Given 07/27/2020 8:30 AM CDT 4 mg ePHEDrine injection intravenous, Administer over 5 Minutes, As needed, Starting on Thu07/27/20 at 0810, Anesthesia Intra-op Given 07/27/2020 8:17 AM CDT 5 mg Given 07/27/2020 8:10 AM CDT 10 mg Given 07/27/2020 7:58 AM CDT 10 mg fentaNYL (SUBLIMAZE) preservative free injection intravenous, As needed, Starting on Thu07/27/20 at 0838, Anesthesia Intra-op Given 07/27/2020 8:38 AM CDT 50 mcg Given 07/27/2020 7:39 AM CDT 100 mcg glycopyrrolate (ROBINUL) injection intravenous, Administer over 1 Minutes, As needed, Starting on Thu07/27/20 at 0744, Anesthesia Intra-op Given 07/27/2020 9:02 AM CDT 0.3 mg Given 07/27/2020 7:44 AM CDT 0.1 mg Lactated Ringer's (LR) infusion 30 mL/hr, intravenous, Continuous, Starting on Thu07/27/20 at 0615, Pre-Op New Bag 07/27/2020 7:50 AM CDT New Bag 07/27/2020 7:27 AM CDT 30 mL/hr 30 mL/hr lidocaine PF (XYLOCAINE) 10 mg/mL (1 %) preservative free injection As needed, Starting on Thu07/27/20 at 0739, Anesthesia Intra-op Given 07/27/2020 7:39 AM CDT 100 mg neostigmine (PROSTIGMIN) injection intravenous, Administer over 3 Minutes, As needed, Starting on Thu07/27/20 at 0902, Anesthesia Intra-op Given 07/27/2020 9:02 AM CDT 2 mg ondansetron (ZOFRAN) injection 4 mg 4 mg, intravenous, Administer over 2 Minutes, Every 6 hours PRN, nausea, vomiting, Starting on Thu07/23/20 at 1521, Proceed to trimethobenzamide if no relief within 30 minutes. , Indications: Nausea and VomitingIndications:Nausea and Vomiting Given 07/27/2020 9:02 AM CDT 4 mg Given 07/26/2020 5:40 PM CDT 4 mg Given 07/26/2020 9:11 AM CDT 4 mg phenylephrine (MICHELLE-SYNEPHRINE) 0.5 mg/5 mL (100 mcg/mL) in sodium chloride 0.9% (premix) intravenous, As needed, Starting on Thu07/27/20 at 0741, Anesthesia Intra-op Given 07/27/2020 8:52 AM CDT 200 mcg Given 07/27/2020 8:33 AM CDT 200 mcg Given 07/27/2020 8:10 AM CDT 100 mcg phenylephrine (MICHELLE-SYNEPHRINE) 5 mg/50 mL (100 mcg/mL) in sodium chloride 0.9% (premix) Continuous PRN, Starting on Thu07/27/20 at 0755, Anesthesia Intra-op Rate/Dose Change 07/27/2020 9:10 AM CDT 0.3 mcg/kg/min 18.38 mL/hr Rate/Dose Change 07/27/2020 9:06 AM CDT 0.5 mcg/kg/min 30. 6 mL/hr Rate/Dose Change 07/27/2020 9:02 AM CDT 0.6 mcg/kg/min 36. 8 mL/hr propofoL (DIPRIVAN) IV intravenous, As needed, Starting on Thu07/27/20 at 0739, Anesthesia Intra-op Given 07/27/2020 7:41 AM CDT 50 mg Given 07/27/2020 7:39 AM CDT 100 mg rocuronium (ZEMURON) injection intravenous, As needed, Starting on Thu07/27/20 at 0739, Anesthesia Intra-op Given 07/27/2020 7:39 AM CDT 40 mg sodium chloride 0.9% infusion 75 mL/hr, intravenous, Continuous, Starting on Thu07/27/20 at 0000, Once NPO Rate/Dose Verify 07/27/2020 7:28 AM CDT New Bag 07/27/2020 12:14 AM CDT 75 mL/hr 75 mL/hr vasopressin injection As needed, Starting on Thu07/27/20 at 0848, Anesthesia Intra-op Given 07/27/2020 8:50 AM CDT 0.2 Units Given 07/27/2020 8:48 AM CDT 0.2 Units documented in this encounter Care Teams Electrical Development Engineer Relationship Specialty Start Date End Date Cecilia Lim MD PCP - General Family Medicine 12/21/19 12/30/20 Rodolfo Mantilla MD [address] [place] [address] Consulting Physician Neurology 12/21/19 documented as of this encounter
--- OUTSIDE RECORDS SUMMARY | 2024-10-31 03:51 | XMS_ITS | Encounter Summary ---
Author Organization [facility] Address [address] [place] [address] Phone Care Team Providers Care Car Electronics Installer Name Role Phone Cecilia Lim MD Primary Care Provider Rodolfo Mantilla MD Unavailable Reason for Visit * Reason Comments Parkinson's Disease Encounter Details Date Type Department Care Team (Late st Contact Info) Description 05/09/2020 3:30 PM CDT Telemedicine [facility] Movement Disorders [address] [place] [phone] Shruthi Rivero, FIELD CASHIER [address] [place], [place] [id number] Parkinsonism, unspecified Parkinsonism type (CMS/HCC) (Primary Dx); NPH (normal pressure hydrocephalus) (CMS/HCC); Anxiety and depression; 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 to medical condition Social History Tobacco Use Types Packs/Day Years Used Date Smoking Tobacco: Former Cigarettes Smokeless Tobacco: Never Alcohol Use Standard Drinks/Week Comments Yes 1 (1 standard drink = 0.6 oz pur e alcohol) Comments Unknown Sex and Gender Information Value Date Recorded Sex Assigned at Not on file Legal Sex Female 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 30 tablet 11 05/09/2020 0 carbidopa-levodopa (SINEMET) 25-100 mg per tabletIndications: Parkinsonism Take 4 tabs 3 times per day 810 tablet 3 05/09/2020 0 venlafaxine XR (EFFEXOR-XR) 150 mg 24 hr capsule Take 1 37.5 mg cap in the morning and 1 150 mg cap in the evening 30 capsule 11 05/09/2020 0 documented in this encounter Progress Notes * Shruthi Rivero NP - 05/09/2020 3:30 PM CDT [facility] Office Visit Patient: Olga Bansal Referred by: Willy Cummings MD : 1945 Visit Date: 05/09/2020 Clinician: Shruthi Rivero NP Chief Complaint Olga Bansal is a 74 y.o. female who presents for Parkinson's Disease Hand Dominance: Referred by Willy Cummings MD. Her PMD is Cecilia Lim MD. HPI: She is having lots of shuffling and tripping and has had several recent falls. She gets charleyhorse like pain in her hands that could be bothersome. She will be getting her lumbar drain in May. She feels like she is regressing. She doesn't have any tremor, she does have trouble opening doors and some other mild problems with dexterity like in brushing her teeth or picking up small objects. She feels like she has less strength in her hands but notes in her right hand more. She was starting PT right when COVID started and she had been going to the [place] but all this had been cancelled due to COVID. Now,she hasn't been exercising as much and has been gaining weight. She generally doesn' t feel levodopa kick in or wear off. Initially, it was very helpful but now she is not so sure. Shehas not been lightheaded, no hallucinations but sometimes objects could appear distorted, no dyskinesia, nausea is well controlled with domperidone and she is only having to take it in the AM currently. Appetite has been good. Chewing and swallowing are not as good but she knows she takes too big of bites and eats too fast. Her had to do the Heimlich a few times. She has not had a swallowstudy because of the virus. Bowels are moving okay with Metamucil. Bladder is sometimes urgent and other times, not. She was wearing pads but hasn't needed them recently. Sleep at night is sometimes problematic. She doesn't go to sleep till about 2am. When she closes her eyes,she has lots of thoughts and images of her son who . She has been taking Advil PM half tab and she has found that helpful with sleepy time tea. Mood and spirits are no better--she is okay, just has periods of depression and grief. She feels mentally foggy. Current Outpatient Medications Medication Sig Dispense Refill ??? acetaminophen-codeine (TYLENOL with CODEINE #3) 300-30 mg per tablet TAKE 1 TABLET BY MOUTH EVERY DAY NEEDED FOR PAIN ??? atorvastatin (LIPITOR) 10 mg tablet Take 10 mg by mouth daily. ??? carbidopa-levodopa (SINEMET) 25-100 mg per tablet Take 4 tabs 3 times per day 810 tablet 3 ??? cholecalciferol (VITAMIN D-3) 1000 unit tablet Take 1,000 Units by mouth daily ??? DOMPERIDONE, BULK, MISC [...] mouth 3 (three) times a day ??? hydroCHLOROthiazide (HYDRODIURIL) 12.5 mg tablet Take 12.5 mg by mouth daily ??? levothyroxine (SYNTHROID, LEVOTHROID) 100 mcg tablet Take 100 mcg by mouth daily. 5 ??? losartan (COZAAR) 50 mg tablet Take 50 mg by mouth 2 (two) times a day ??? metoprolol XL (TOPROL-XL) 50 mg 24 hr tablet Take 50 mg by mouth daily. ??? UNABLE TO FIND Medical Marijuana PRN rarely for pain at night ??? venlafaxine XR (EFFEXOR-XR) 37.5 mg 24 hr capsule Take 37.5 mg by mouth as directed 1 cap in the morning and 2 caps in the evening ??? traZODone (DESYREL) 100 mg tablet Take 1/2 tab at bedtime and increase to 1 tab at bedtime. 30 tablet 11 ??? venlafaxine XR (EFFEXOR-XR) 150 mg 24 hr capsule Take 1 37.5 mg cap in the morning and 1 150 mgcap in the evening 30 capsule 11 No current facility-administered medications for this visit. Allergies Allergen Reactions ??? Celebrex [Celecoxib] Nausea [...] Heart disease Father ??? Heart disease Brother Ethnicity: Non- Social History Socioeconomic History ??? Marital status: Spouse name: Not on file ??? Number of children: Not on file ??? Years of education: Not on file ??? Highest education level: Not on file Occupational History ??? Occupation: retired Social Needs ??? Financial resource strain: Not on file ??? Food insecurity Worry: Not on file Inability: Not on file ??? Transportation needs Medical: Not on file Non-medical: Not on file Tobacco Use ??? Smoking status: Former Smoker Types: Cigarettes ??? Smokeless tobacco: Never Used Substance and Sexual Activity ??? Alcohol use: Yes Alcohol/week: 1.0 standard drinks Types: 1 Glasses of wine per week ??? Drug use: No ??? Sexual activity: Not on file Lifestyle ??? Physical activity Days per week: Not on file Minutes per session: Not on file ??? Stress: Not on file Relationships ??? Social connections Talks on phone: Not on file Gets together: Not on file Attends yazidism service: Not on file Active member of club or organization: Not on file Attends meetings of clubs or organizations: Not on file Relationship status: Not on file ??? Intimate partner violence Fear of current or ex partner: Not on file Emotionally abused: Not on file Physically abused: Not on file Forced sexual activity: Not on file Other Topics Concern ??? Not on file Social History Narrative ??? Not on file There were no vitals taken for this visit. Assessment/Plan Diagnoses and all orders for this visit: Parkinsonism, unspecified Parkinsonism type (CMS/HCC) (G20) (Primary) Assessment & Plan: Ms. Bansal is a 74 y/o woman with gait [...] She has some issues with swallowing but wouldlike to hold off on MBS for now. [...] her an rx. 6. Consider swallow study. NPH (normal pressure hydrocephalus) (CMS/HCC) (G91.2) Anxiety and depression (F41.9, F32.9) 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 to medical condition (G47.01) Other orders - venlafaxine XR (EFFEXOR-XR) 150 mg 24 hr capsule; Take 1 37.5 mg cap in the morning and 1 150 mg cap in the evening - carbidopa-levodopa (SINEMET) 25-100 mg per tablet; Take 4 tabs 3 times per day - traZODone (DESYREL) 100 mg tablet; Take 1/2 tab at bedtime and increase to 1 tab at bedtime. Return in about 25 weeks (around 10/31/2020). This was a telemedicine visit with Olga Bansal and her which took place via Real-time video connection ([employer], [employer] or similar). During the visit, I was located at my home office in [place] and the patient was located at her home in [place]. The session started at 1538 and ended at 1609. In addition to the time spent during the session with the patient, I spent 5 minutes reviewing her chart and 7 minutes completing her note on the day of the visit. Total time spend on encounter on the day of the visit: 43 minutes. The patient has been informed that the visit may not be secure and acknowledged the information. It was explained to the patient they have the option of participating in a telephone or video visitduring the [facility] emergency. After being given an opportunity to ask questions about and discuss this type of visit, the patient verbally consented to proceeding with the telephone / video visit. The patient understands that this service replaces an office visit and they may be billed and/or responsible for any applicable copayments. Greater than 50% of any time I spent on the call/video was spent in counseling and/or coordination of care as documented in the note. Cosigned by Rodolfo Mantilla MD at 05/14/2020 10:28 AM CDT Associated attestation - Rodolfo Mantilla MD - 05/14/2020 10:28 AM CDT Images from the original note were not included. I reviewed the HPI, exam and assessment and plan, but did not see the patient personally. Agree with the assessment and plan by BE Turner. Josefa Mantilla MD documented in this encounter Miscellaneous Notes * Assessment & Plan Note - Shruthi Rivero NP - 05/11/2020 11:39 PM CDT Associated Problem(s): Parkinsonism (HCC) Ms. Bansal is a 74 y/o woman with gait [...] She has some issues with swallowing but wouldlike to hold off on MBS for now. [...] her an rx. 6. Consider swallow study. documented in this encounter Plan of Treatment Not on file documented as of this encounter Visit Diagnoses Diagnosis Parkinsonism, unspecified Parkinsonism type (HCC)- Primary NPH (normal pressure hydrocephalus) (HCC) Idiopathic normal pressure hydrocephalus (INPH) Anxiety and depression 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 to medical condition Organic insomnia, unspecified documented in this encounter Discontinued Medications Medication Sig Discontinue Reason Start Date End Da te citalopram (CeleXA) 20 mg tablet Take 20 mg by mouth daily She is weaning 05/09/2020 carbidopa-levodopa (SINEMET) 25-100 mg per tabletIndications:Christine sami Take 3 tabs 3 times per day Reorder 09/16/2019 05/09/2020 documented as of this encounter Historical Medications * This list may reflect changes made after this encounter. hydroCHLOROthiazi de (HYDRODIURIL) 12.5 mg tablet Take 12.5 mg by mouth daily 04/20/2020 09/03/2021 acetaminophen-cod eine (TYLENOL with CODEINE #3) 300-30 mg per tablet TAKE 1 TABLET BY MOUTH EVERY DAY NEEDED FOR PAIN 04/11/2020 07/23/2020 added in this encounter Care Teams Car Electronics Installer Relationship Specialty Start Date End Date Cecilia Lim MD PCP - General Family Medicine 12/21/19 12/30/20 Rodolfo Mantilla MD [address] [place] [address] Consulting Physician Neurology 12/21/19 documented as of this encounter
--- OUTSIDE RECORDS SUMMARY | 2024-10-31 03:51 | XMS_ITS | Encounter Summary ---
Author Organization [facility] Address [address] [place] [address] Phone Care Team Providers Care Cement Car Dumper Name Role Phone Cecilia Lim MD Primary Care Provider Rodolfo Mantilla MD Unavailable Encounter Details Date Type Department Care Team (Late st Contact Info) Description 07/23/2020 10:00 AM CDT Clinical Support [facility] Movement Disorders [address] [place] [phone] Social History Tobacco Use Types Packs/Day Years Used Date Smoking Tobacco: Former Cigarettes Smokeless Tobacco: Never Alcohol Use Standard Drinks/Week Comments Yes 1 (1 standard drink = 0.6 oz pur e alcohol) Comments Unknown Sex and Gender Information Value Date Recorded Sex Assigned at Not on file Legal Sex Female 1:04 AM SACK LIFTER Gender Identity Not on file Sexual Orientation Not on file Occupation Industry Job Start Date Job End Date retired Not on file Not on file Not on file documented as of this encounter Plan of Treatment Not on file documented as of this encounter Visit Diagnoses Not on filedocumented in this encounter Care Teams Cement Car Dumper Relationship Specialty Start Date End Date Cecilia Lim MD PCP - General Family Medicine 12/21/19 12/30/20 Rodolfo Mantilla MD [address] [place] [address] Consulting Physician Neurology 12/21/19 documented as of this encounter
--- OUTSIDE RECORDS SUMMARY | 2024-10-31 03:51 | XMS_ITS | Encounter Summary ---
Author Organization [facility] Address [address] [place] [address] Phone Care Team Providers Care Laminator Hand Name Role Phone Cecilia Lim MD Primary Care Provider Rodolfo Mantilla MD Unavailable Encounter Details Date Type Department Care Team (Late st Contact Info) Description 04/03/2020 1:35 PM CDT Office Visit [facility] Neurosurgery [address] [facility] Advanced Medicine 6th [place] [address] [place] [address] Leobardo Perez MD [address] [place] [address] NPH (normal pressure hydrocephalus) (CMS/HCC) (Primary Dx) Social History Tobacco Use Types Packs/Day Years Used Date Smoking Tobacco: Former Cigarettes Smokeless Tobacco: Never Tobacco Cessation:Counseling Given: No Alcohol Use Standard Drinks/Week Comments Yes 1 (1 standard drink = 0.6 oz pur e alcohol) Comments Unknown Sex and Gender Information Value Date Recorded Sex Assigned at Not on file Legal Sex Female 1:04 AM TRAUMA THERAPIST Gender Identity Not on file Sexual Orientation Not on file Occupation Industry Job Start Date Job End Date retired Not on file Not on file Not on file documented as of this encounter Last Filed Vital Signs Vital Sign Reading Time Taken Comments Blood Pressure 192/88 04/03/2020 1:50 PM CDT Pulse 73 04/03/2020 1:50 PM CDT Temperature - - Respiratory Rate - - Oxygen Saturation - - Inhaled Oxygen Concentration - - Weight 102.3 kg (225 lb 9.6 oz) 04/03/2020 1:50 PM CDT Height 163.8 cm (5' 4.5 ) 04/03/2020 1:50 PM CDT Body Mass Index 38.13 04/03/2020 1:50 PM CDT documented in this encounter Progress Notes * Leobardo Perez MD - 04/03/2020 1:35 PM CDT Patient Name: JONNIE ALEX Medical Record Number (MRN): [id number] Date of (): 1945 Encounter Date: 04/03/2020 PRIMARY CARE PROVIDER: Cecilia Lim MD REFERRING PROVIDER: Referral, Self INTERVAL HISTORY Jonnie Alex is a 74-year-old woman who carries a diagnosis of normal pressure hydrocephalus. I discussed with her in the past the merits of a lumbar drain trial to assess if she improves her mobility and neuro cognitive function with CSF drainage as an attempt to understand her she would benefit from a AUTOMOBILE UPHOLSTERER APPRENTICE shunt. She sees Dr. Mantilla in the movement disorders clinic to think she has at least somecomponent of parkinsonian is in contributing to her mobility and neuro cognitive issues. Since I last saw the patient her in a dark do feel that her mobility has further declined to some degree. Today she has several questions regarding a lumbar drain trial and a possibility of AUTOMOBILE UPHOLSTERER APPRENTICE shunt. VITAL SIGNS Vitals: 04/03/20 1350 BP: (!) 192/88 Pulse: 73 Weight: 102.3 kg (225 lb 9.6 oz) Height: 163.8 cm (5' 4.5 ) PHYSICAL EXAM: Mental Status: The patient was alert and oriented to person, place and time. There was no memory deficit. There was normal language pattern, attention span and general fund of knowledge. Repetition intact, naming three out of three. Gait and Station: Gait and station is slow and shuffling Cranial Nerves: II: Visual michelle were normal. Visual acuity was normal. III, IV and : The pupils were equal and reactive to light and accomodation. Extraocular movementswere intact. There was no ptosis or nystagmus. There was normal convergence. There was no evidence of Dilma's syndrome. V:Facial sensation was normal. VII:Facial strength was normal. There was no ptosis. VIII: Hearing was intact bilaterally. IX,X: The palate elevated in the midline. There was no hoarseness, and volume was normal. XI: There was no atrophy/weakness of the sternocleidomastoid or trapezius. Shoulder elevation was symmetric. XII: The tongue protruded in the midline. There was no atrophy or fasciculation. Cerebellar: There was no nystagmus, dysmetria or dyskinesia. Voice za was normal. Motor: There was no upper or lower extremity weakness, atrophy or fasciculations. There was normal tone. Deep Tendon Reflexes: The reflexes were bilaterally symmetric throughout. Babinski and Dodd's signs were negative. The was no ankle clonus. Sensation: Light touch and pinprick sensation was normal Incision: None REVIEW OF IMAGING: None new ASSESSMENT AND PLAN: Jonnie Alex is a 74-year-old woman who carries a diagnosis of normal pressure hydrocephalus wholikely has some component of Parkinson's disease. Today I had extensive discussion with her regarding a lumbar drain trial and possibility of a AUTOMOBILE UPHOLSTERER APPRENTICE shunt. Again I have discussed that the lumbar drain trial would be am that removing several hundred cc's of CSF over a 3-4 day period and assessing if she improves her mobility with the drainage. I have explained that this is superior to a single high-volume lumbar puncture. If she improves her physical therapy assessment with CSF drainage I would certainly think she was a candidate for a AUTOMOBILE UPHOLSTERER APPRENTICE shunt. I explained that will always be difficult to separate was symptoms from her are caused by parkinsonism and which are potentially caused by ventriculomegaly. However, I think that a lumbar drain trial would help accurately assess this question. The patient would like to discuss amongst her family whether she wants to undergo lumbar drain trial and will contact the clinic if she wants to proceed. Thank you for allowing me to participate in the care of your patient. If you have any questions, feel free to contact me at [phone]. Sincerely, Leobardo Perez MD documented in this encounter Plan of Treatment Not on file documented as of this encounter Visit Diagnoses Diagnosis NPH (normal pressure hydrocephalus) (HCC)- Primary Idiopathic normal pressure hydrocephalus (INPH) documented in this encounter Care Teams Laminator Hand Relationship Specialty Start Date End Date Cecilia Lim MD PCP - General Family Medicine 12/21/19 12/30/20 Rodolfo Mantilla MD [address] [place] [address] Consulting Physician Neurology 12/21/19 documented as of this encounter
--- OUTSIDE RECORDS SUMMARY | 2024-10-31 03:51 | XMS_ITS | Encounter Summary ---
Author Organization [facility] Address [address] [place] [address] Phone Care Team Providers Care Plant Anatomy Teacher Name Role Phone Cecilia Lim MD Primary Care Provider Rodolfo Mantilla MD Unavailable Reason for Referral * Consultation (Routine) - Closed Specialty Diagnoses / Procedures Referred By Devin laboy Referred To Contact Speech Therapy Diagnoses NPH (normal pressure hydrocephalus) (HCC) Parkinsonism, unspecified Parkinsonism type (HCC) Rodolfo Mantilla MD [address] [place] [address] Phone: tel: fax: External Order Referral ID Status Reason Start Date Expiration Date V isits Requested Visits Authorized [id number] Closed Specialty Services Required 12/21/2019 07/01/2021 1 1 Question Answer PTRFR WALL CRANE OPERATOR Evaluate and Treat Therapy options discussed with patient? Yes Location provided for therapy services is: Patient requested/Patient preferred Please select the performing region: External Order [[id number]] Comments GARNER [facility]Y VAC WALL CRANE OPERATOR CAM 11A NTORY AUDITOR Reason for Visit * Reason Comments Return Patient Difficulty Walking Encounter Details Date Type Department Care Team (Late st Contact Info) Description 12/21/2019 10:00 AM INVENTORY AUDITOR Office Visit [facility] Movement Disorders [address] [place] [phone] Rodolfo Mantilla MD [address] [place] [address] NPH (normal pressure hydrocephalus) (CMS/HCC) (Primary Dx); Parkinsonism, unspecified Parkinsonism type (CMS/HCC) Social History Tobacco Use Types Packs/Day Years Used Date Smoking Tobacco: Former Smokeless Tobacco: Never Alcohol Use Standard Drinks/Week Comments Yes 1 (1 standard drink = 0.6 oz pur e alcohol) Comments Unknown Sex and Gender Information Value Date Recorded Sex Assigned at Not on file Legal Sex Female 1:04 AM INVENTORY AUDITOR Gender Identity Not on file Sexual Orientation Not on file Occupation Industry Job Start Date Job End Date retired Not on file Not on file Not on file documented as of this encounter Last Filed Vital Signs Vital Sign Reading Time Taken Comments Blood Pressure 182/103 12/21/2019 10:17 AM INVENTORY AUDITOR Pulse 67 12/21/2019 10:17 AM INVENTORY AUDITOR Temperature - - Respiratory Rate - - Oxygen Saturation - - Inhaled Oxygen Concentration - - Weight 100.6 kg (221 lb 12.8 oz) 2019 10:17 AM INVENTORY AUDITOR Height 163.8 cm (5' 4.5 ) 12/21/2019 10 :17 AM INVENTORY AUDITOR Body Mass Index 37.48 12/21/2019 10:17 AM INVENTORY AUDITOR documented in this encounter Progress Notes * Rodolfo Mantilla MD - 12/21/2019 10:00 AM CST [facility] Office Visit Patient: lOga Bansal Referred by: No ref. provider found : 1945 Visit Date: 12/21/2019 Clinician: Rodolfo Mantilla MD Chief Complaint Olga Bansal is a 73 y.o. female who presents for Return Patient and Difficulty Walking Hand Dominance: Referred by No ref. provider found. Her PMD is Cecilia Lim MD. HPI: Over the past year she continued to be slow, but was doing OK. 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 She had a fall last week, but had not really fallen since she started carbidopa/levodopa. Since she started levodopa she found that she was better able to catch herself when she was about to fall. She currently took carbidopa/levodopa 3 tablets three times. On this dose she was pretty stable all day long. She did not really notice any ups and down. She continued to have a sensation of feeling like she might fall. Her blood pressure had been high not low. She was not having as much nausea when she took levodopa. She took domperidone and had no trouble getting it. The dom peridone helped the nausea tremendously. Each dose seemed to last from dose do dose, though at peakdose she continued to have some trouble with imbalance. She did PT about 6 months ago and she felt like it helped. She was not exercising though was planning to start exercise at the [facility]. She could have trouble swallowing solids. She had not seen speech therapy yet. Her appetite was OK. She was not losing weight. She had urinary urgency and she had trouble with incontinence but this was better. She did not think levodopa made her dramatically better but she was definitely slowing down and could no longer walk as long as she had in the past. Her memory was not good. She felt like it was getting worse. She was putting things in the wrong places and forgetting things. She had trouble with word retrieval. She had no psychosis. Her mood continued to be up and down. She continued grieve the loss of her son. She took Celexa that she thought kept her even but she was being transitioned to to Effexor due to night sweats. Current Outpatient Medications Medication Sig Dispense Refill ??? atorvastatin (LIPITOR) 10 mg tablet Take 10 mg by mouth daily. ??? carbidopa-levodopa (SINEMET) 25-100 mg per tablet Take 3 tabs 3 times per day 810 tablet 3 ??? cholecalciferol (VITAMIN D-3) 1000 unit tablet Take 1,000 Units by mouth daily ??? citalopram (CeleXA) 20 mg tablet Take 20 mg by mouth daily She is weaning ??? DOMPERIDONE, BULK, MISC 10 mg 3 [...] daily. ??? UNABLE TO FIND Medical Marijuana ??? venlafaxine XR (EFFEXOR-XR) 37.5 mg 24 hr capsule TAKE 1 CAP BY MOUTH DAILY FOR 1 WEEK THEN 1 CAP TWICE DAILY No current facility-administered medications for this visit. [...] ??? Financial resource strain: None ??? Food insecurity Worry: None Inability: None ??? Transportation needs Medical: None Non-medical: None Tobacco Use ??? Smoking status: Former Smoker ??? Smokeless tobacco: Never Used Substance and Sexual Activity ??? Alcohol use: Yes Alcohol/week: 1.0 standard drinks Types: 1 Glasses of wine per week ??? Drug use: No ??? Sexual activity: None Lifestyle ??? Physical activity Days per week: None Minutes per session: None ??? Stress: None Relationships ??? Social connections Talks on phone: None Gets together: None Attends pentecostalism service: None Active member of club or organization: None Attends meetings of clubs or organizations: None Relationship status: None ??? Intimate partner violence Fear of current or ex partner: None Emotionally abused: None Physically abused: None Forced sexual activity: None Other Topics Concern ??? None Social History Narrative ??? None Review of Systems Vitals BP (!) 182/103 (BP Location: Right arm, Patient Position: Sitting) Pulse 67 Ht 163.8 cm (5' 4.5 ) Wt 100.6 kg (221 lb 12.8 oz) BMI 37.48 kg/m?? Physical Exam UPDRS - Unified Parkinson's Disease Rating Scale UPDRS Last Medication Given : Carbidopa/Levodopa Last med given Date: 12/21/19 Last med given time: 729 ON/OFF: ON UPDRS PART III - Motor Examination - Using a 0 to 4 rating scale (with 0 being normal) Tremor at rest of FACE, LIPS, CHIN: 0 Tremor at rest RIGHT hand: 0 Tremor at rest LEFT hand: 0 Tremor at rest RIGHT foot: 0 Tremor at rest LEFT foot: 0 Action/postural tremor RIGHT hand: 0 Action/postural tremor LEFT hand: 1 Rigidity NECK: 2 Rigidity RIGHT upper extremity: 1 Rigidity LEFT upper extremity: 1 Rigidity RIGHT lower extremity: 0 Rigidity LEFT lower extremity: 0 Finger taps RIGHT hand: 1 Finger taps LEFT hand: 2 Hand Movements RIGHT hand: 1.5 Hand Movements LEFT hand: 2 Rapid Alternating Movements of Hands RUE: 1 Rapid Alternating Movements of Hands LUE: 2 Agility RIGHT le Agility LEFT le.5 Speech: 2 - Monotone, slurred but understandable, moderately impaired. Facial expression: 2 - Slight but definitely abnormal diminution of facial expression. Arising from chair: 1 - Slow, or may need more than one attempt. Posture: 1 - Not quite erect, slightly stooped posture, could be normal for older person. Gait: 1 - Walks slowly, may shuffle with short steps, but no festination (hastening steps) or propulsion. Postural stability: 1 - Retropulsion, but recovers unaided. Body bradykinesia and hypokinesia: 2 - Mild degree of slowness and poverty of movement which is definitely abnormal.Alternatively, some reduced amplitude. Part III Total Score: 30 UPDRS PART IV - (COMPLICATIONS OF THERAPY - A. DYSKINESIAS) Duration: What proportion of the waking day are dyskinesias present: None Disability: How disabling are the dyskinesias: Not disabling Painful dyskinesias: How painful are the dyskinesias: None Presence of supervisor fish hatchery dystonia: No Sub score (part A): 0 UPDRS PART IV - (COMPLICATIONS OF THERAPY - B. CLINICAL FLUCTUATIONS) Are any off periods predictable as to timing after a dose of medication: No Are any off periods unpredictable as to timing after a dose of medication: No Do any off periods come on suddenly: No What proportion of the waking day is the patient off on average: None UPDRS PART IV - (COMPLICATIONS OF THERAPY - C. OTHER COMPLICATIONS) Does the patient have anorexia, nausea, or vomiting: No Does the patient have any sleep disturbances: No Does the patient have symptomatic orthostasis: No Neuropsychological Evaluation 12/21/2019 Testing Black Leather Buffer Lori Briones Neuropsychological Evaluation START Time 11:26 AM Neuropsychalogical Evaluation STOP Time 11:57 AM TOTAL Neuropsychological Evaluation Time (minutes) 31 MOCA Total Score (out of 30) 26 Mini-Mental Total Score ((out of 30) 27 Mini-Mental Score Evaluation 24+ Normal GDS Total Score (Short Version max 15) 5 Redmond Total Score (out of 24) 1 RAND SF-36 Physical Functioning 15 RAND SF-36 Role limitations due to physical health 0 RAND SF-36 Role limitations due to emotional problems 0 RAND SF-36 Energy/fatigue 25 RAND SF-36 Emotional well-being 64 RAND SF-36 Social functioning 50 RAND SF-36 Pain 22.5 RAND SF-36 General health 45 Total Stiasny Kolster REM Score (out of 13) 4 HAD Anxiety Score 8 HAD Depression Score 5 Comment - My professional interpretation of the neuropsych testing done today includes: preserved cognitive function with a MoCA score of 26/30 and MMSE score of 27/30; with no evidence of depression with a GDS score of 5/15 and HADS depression scores of 5/15; with evidence of anxiety with a HADS anxiety score of 8/15; with no evidence of REM behavior problems with a Staisny Kolster REM score of 4/13; withno evidence of excessive daytime sleepiness with an Redmond score of 1/24; and moderate impairment of quality of life on the RAND-SF36. 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 Atypical features include early falling, early dementia and urinary incontinence. Her brain MRI from 2018 also demonstrated ventriculomegaly with some atrophy and an Peter's Index of 0.36. She had a good levodopa trail over the past year with taking 900 mg daily. On this dose shehad improvement of balance and was no longer falling as much, though she still felt off balance. She had no freezing of gait. She had shuffling and festination which can be present in both NPH and IPD. She did not have a dramatic benefit for her bradykinesia from levodopa and continued to have urina ry urgency. Of note she also had significant [...] will consider increasing the dose of levodopa. Orders: - Ambulatory referral order to Physical Therapy -; Future - Ambulatory referral order to Speech Therapy - Return in about 1 year (around 12/21/2020). 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 Atypical features include early falling, early dementia and urinary incontinence. Her brain MRI from 2018 also demonstrated ventriculomegaly with some atrophy and an Peter's Index of 0.36. She had a good levodopa trail over the past year with taking 900 mg daily. On this dose shehad improvement of balance and was no longer falling as much, though she still felt off balance. She had no freezing of gait. She had shuffling and festination which can be present in both NPH and IPD. She did not have a dramatic benefit for her bradykinesia from levodopa and continued to have urina ry urgency. Of note she also had significant [...] will consider increasing the dose of levodopa. NTORY AUDITOR documented in this encounter Plan of Treatment Scheduled Referrals Name Type Priority Associated Diagnoses Orde r Schedule Ambulatory referral order to Speech Therapy - Outpatient Referral Routine NPH (normal pressure hydrocephalus) Parkinsonism, unspecified Parkinsonism type (CMS/HCC) Ordered: 12/21/2019 documented as of this encounter Visit Diagnoses Diagnosis NPH (normal pressure hydrocephalus) (HCC)- Primary Idiopathic normal pressure hydrocephalus (INPH) Parkinsonism, unspecified Parkinsonism type (HCC) documented in this encounter Historical Medications * This list may reflect changes made after this encounter. venlafaxine XR (EFFEXOR-XR) 37.5 mg 24 hr capsule Take 37.5 mg by mouth as directed 1 cap in the morning and 2 caps in the evening 12/15/2019 08/29/2021 added in this encounter Care Teams Plant Anatomy Teacher Relationship Specialty Start Date End Date Cecilia Lim MD PCP - General Family Medicine 12/21/19 12/30/20 Rodolfo Mantilla MD [address] [place] [address] Consulting Physician Neurology 12/21/19 documented as of this encounter
--- OUTSIDE RECORDS SUMMARY | 2024-10-31 03:51 | XMS_ITS | Encounter Summary ---
Author Organization [facility] Address [address] [place] [address] Phone Care Team Providers Care Global Upstream Marketing Manager Name Role Phone Cecilia Lim MD Primary Care Provider Rodolfo Mantilla MD Unavailable Encounter Details Date Type Department Care Team (Late st Contact Info) Description 11/27/2020 Telephone [facility] Scheduling [address] [place] [address] Pattie Stahl BS Social History Tobacco Use Types Packs/Day Years Used Date Smoking Tobacco: Former Cigarettes Q uit: 07/27/1970 Smokeless Tobacco: Never Alcohol Use Standard Drinks/Week Comments Yes 1 (1 standard drink = 0.6 oz pur e alcohol) Comments No Sex and Gender Information Value Date Recorded Sex Assigned at Not on file Legal Sex Female 1:04 AM STILL OPERATOR BRANDY Gender Identity Not on file Sexual Orientation Not on file Occupation Industry Job Start Date Job End Date retired Not on file Not on file Not on file documented as of this encounter Miscellaneous Notes * Telephone Encounter - My Conrad CNA - 12/03/2020 2:02 PM STILL OPERATOR BRANDY LVM for pt again to make her aware not to show up tomorrow and her apts were r/s. Mailing out apts reminders today L OPERATOR BRANDY * Telephone Encounter - Reza Dee - 11/30/2020 9:02 AM CST LVM for pt with new apt dates and times, asked for a cb to confirm. Original apt on 12/04 L OPERATOR BRANDY * Telephone Encounter - Pattie Stahl BS - 11/27/2020 11:27 AM STILL OPERATOR BRANDY LVM for pt. Moved [facility] apt to [facility] on 12/31. CT prior. Need to confirm details. L OPERATOR BRANDY documented in this encounter Plan of Treatment Not on file documented as of this encounter Visit Diagnoses Not on filedocumented in this encounter Care Teams Global Upstream Marketing Manager Relationship Specialty Start Date End Date Cecilia Lim MD PCP - General Family Medicine 12/21/19 12/30/20 Rodolfo Mantilla MD [address] [place] [address] Consulting Physician Neurology 12/21/19 documented as of this encounter
--- OUTSIDE RECORDS SUMMARY | 2024-10-31 03:51 | XMS_ITS | Encounter Summary ---
Author Organization [facility] Address [address] [place] [address] Phone Care Team Providers Care Information Writer Name Role Phone Cecilia Lim MD Primary Care Provider Rodolfo Mantilla MD Unavailable Reason for Referral * Diagnostic Imaging (Routine) - Closed Specialty Diagnoses / Procedures Referred By Devin laboy Referred To Contact Radiology Diagnoses NPH (normal pressure hydrocephalus) (HCC) Procedures CT Head WO Contrast Leobardo Perez MD Phone: tel: fax: [address] [phone] Referral ID Status Reason Start Date Expiration Date Visits Re quested Visits Authorized [id number] Closed 08/28/2020 09/27/2021 1 1 ANENT WAVER Encounter Details Date Type Department Care Team (Late st Contact Info) Description 08/28/2020 12:50 PM PERMANENT WAVER Office Visit [facility] Neurosurgery [address] [facility] [address] [place] [address] [place] [address] Leobardo Perez MD [address] [place] [address] NPH (normal pressure hydrocephalus) (CMS/HCC) (Primary Dx) Social History Tobacco Use Types Packs/Day Years Used Date Smoking Tobacco: Former Cigarettes Q uit: 07/27/1970 Smokeless Tobacco: Never Alcohol Use Standard Drinks/Week Comments Yes 1 (1 standard drink = 0.6 oz pur e alcohol) Comments No Sex and Gender Information Value Date Recorded Sex Assigned at Not on file Legal Sex Female 1:04 AM PERMANENT WAVER Gender Identity Not on file Sexual Orientation Not on file Occupation Industry Job Start Date Job End Date retired Not on file Not on file Not on file documented as of this encounter Last Filed Vital Signs Vital Sign Reading Time Taken Comments Blood Pressure 138/78 08/28/2020 12:28 PM PERMANENT WAVER Pulse 78 08/28/2020 12:28 PM PERMANENT WAVER Temperature - - Respiratory Rate - - Oxygen Saturation - - Inhaled Oxygen Concentration - - Weight 103.4 kg (228 lb) 08/28/2020 12:28 PM PERMANENT WAVER Height 163.8 cm (5' 4.5 ) 08/28/2020 12:28 PM CS T Body Mass Index 38.53 08/28/2020 12:28 PM PERMANENT WAVER documented in this encounter Progress Notes * Leobardo Perez MD - 08/28/2020 12:50 PM CST Patient Name: JONNIE ALEX Medical Record Number (MRN): [id number] Date of (): 1945 Encounter Date: 08/28/2020 PRIMARY CARE PROVIDER: Cecilia Lim MD REFERRING PROVIDER: Cecilia Lim,* INTERVAL HISTORY Jonnie Alex is a 74-year-old woman with history of normal pressure hydrocephalus who is now 6 weeks status post CYLINDER STEAMER shunt placement. Since her surgery she has noticed some improvement in her walking and balance although she feels like this is plateaued in last week. Otherwise she has no complaints. VITAL SIGNS Vitals: 08/28/20 1228 BP: 138/78 Pulse: 78 Weight: 103.4 kg (228 lb) Height: 163.8 cm (5' 4.5 ) PHYSICAL EXAM: Mental Status: The patient was alert and oriented to person, place and time. There was no memory deficit. There was normal language pattern, attention span and general fund of knowledge. Repetition intact, naming three out of three. Gait and Station: Gait and station steady. There was no limp or ataxia. Tandem gait was normal. Cranial Nerves: II: Visual michelle were normal. [...] was no nystagmus, dysmetria or dyskinesia. Voice az was normal. Motor: There was no upper or lower extremity weakness, atrophy or fasciculations. There was normal tone. Deep Tendon Reflexes: The reflexes were bilaterally symmetric throughout. Babinski and Dodd's signs were negative. The was no ankle clonus. Sensation: Light touch and pinprick sensation was normal Incision: Well-healed REVIEW OF IMAGING: I reviewed the patient's CT of the head personally. There is a CYLINDER STEAMER shunt catheter in place in the right parietal area. There is no significant change in the ventricular size. ASSESSMENT AND PLAN: Jonnie Alex is a 74-year-old woman status post CYLINDER STEAMER shunt placement for normal pressure hydrocephalus. She is seeing some improvement postoperatively. Today I have changed her strata 2 valve setting from 2.0 to 1.5. I would like to see her back in 3 months time with a repeat head CT to assess herprogress. I have encouraged her to follow-up with Dr. Mantilla regarding her parkinsonism. Thank you for allowing me to participate in the care of your patient. If you have any questions, feel free to contact me at [phone]. Sincerely, Leobardo Perez MD ANENT WAVER documented in this encounter Plan of Treatment Not on file documented as of this encounter Results * CT Head WO Contrast (12/31/2020 8:09 AM PERMANENT WAVER) Anatomical Region Laterality Modality Head and Neck N/A Computed Tomogra phy 12/31/2020 8:52 AM PERMANENT WAVER Impressions 12/31/2020 8:52 AM PERMANENT WAVER Right parietal approach ventricular catheter with grossly unchanged mild to moderate enlargement of the lateral and 3rd ventricles. Electronically signed by: Ranjan Brown M.D. Narrative 12/31/2020 8:52 AM PERMANENT WAVER EXAMINATION: CT head without contrast HISTORY: Normal [...] ventricles. Electronically signed by: Ranjan Brown M.D. us Leobardo Perez MD IMG CT PROCEDURES Final Resul t documented in this encounter Visit Diagnoses Diagnosis NPH (normal pressure hydrocephalus) (HCC)- Primary Idiopathic normal pressure hydrocephalus (INPH) NPH (normal pressure hydrocephalus) (HCC) Idiopathic normal pressure hydrocephalus (INPH) documented in this encounter Care Teams Information Writer Relationship Specialty Start Date End Date Cecilia Lim MD PCP - General Family Medicine 12/21/19 12/30/20 Rodolfo Mantilla MD [address] [place] [address] Consulting Physician Neurology 12/21/19 documented as of this encounter
--- OUTSIDE RECORDS SUMMARY | 2024-10-31 03:51 | XMS_ITS | Encounter Summary ---
Author Organization [facility] Address [address] [place] [address] Phone Care Team Providers Care Linotype Operator Name Role Phone Cecilia Lim MD Primary Care Provider Rodolfo Mantilla MD Unavailable Encounter Details Date Type Department Care Team (Late st Contact Info) Description 08/30/2020 Telephone [facility] [address] [facility] [address] [place] [address] Kelli Larsen Social History Tobacco Use Types Packs/Day Years Used Date Smoking Tobacco: Former Cigarettes Q uit: 07/27/1970 Smokeless Tobacco: Never Alcohol Use Standard Drinks/Week Comments Yes 1 (1 standard drink = 0.6 oz pur e alcohol) Comments No Sex and Gender Information Value Date Recorded Sex Assigned at Not on file Legal Sex Female 1:04 AM INSTRUMENT ENGINEER Gender Identity Not on file Sexual Orientation Not on file Occupation Industry Job Start Date Job End Date retired Not on file Not on file Not on file documented as of this encounter Miscellaneous Notes * Telephone Encounter - Kelli Larsen - 08/30/2020 10:55 AM CST 12/04/20 CT 10:30am arrival Fu w [facility] 12:50pm CT and appt reminder sent w date, locations, and early arrival time noted. Link and activation codeto pt Mychart included. RUMENT ENGINEER documented in this encounter Plan of Treatment Not on file documented as of this encounter Visit Diagnoses Not on filedocumented in this encounter Care Teams Linotype Operator Relationship Specialty Start Date End Date Cecilia Lim MD PCP - General Family Medicine 12/21/19 12/30/20 Rodolfo Mantilla MD [address] [place] [address] Consulting Physician Neurology 12/21/19 documented as of this encounter
--- OUTSIDE RECORDS SUMMARY | 2024-10-31 03:51 | XMS_ITS | Encounter Summary ---
Author Organization [facility] Address [address] [place] [address] Phone Care Team Providers Care Production Scheduler Name Role Phone Cecilia Lim MD Primary Care Provider Rodolfo Mantilla MD Unavailable Encounter Details Date Type Department Care Team (Late st Contact Info) Description 01/24/2020 Telephone [facility] Neurosurgery [address] [facility] 6th [place] [address] [place] [address] Leobardo Perez MD [address] [place] [address] Social History Tobacco Use Types Packs/Day Years Used Date Smoking Tobacco: Former Smokeless Tobacco: Never Alcohol Use Standard Drinks/Week Comments Yes 1 (1 standard drink = 0.6 oz pur e alcohol) Comments Unknown Sex and Gender Information Value Date Recorded Sex Assigned at Not on file Legal Sex Female 1:04 AM EQUIPMENT DETAILER Gender Identity Not on file Sexual Orientation Not on file Occupation Industry Job Start Date Job End Date retired Not on file Not on file Not on file documented as of this encounter Miscellaneous Notes * Telephone Encounter - Pati Rodriguez MA - 01/30/2020 10:11 AM CDT I lvm on pts husbands cell#[phone]. I asked that do not come to that appt tomorrow and the call to confirm the new appt in March. 04/03/2020@1:35pm * Telephone Encounter - Pati Rodriguez MA - 01/30/2020 10:04 AM CDT I lvm for patient do not come to the appt tomorrow on 01/31/2020. I asked that she cb to discuss rescheduling for March. * Telephone Encounter - Pati Rodriguez MA - 01/24/2020 12:13 PM CDT I lvm for patient in detail to cb to discuss 01/31/2020 rescheduled to 04/03/2020. I asked patient to cb to confirm the appt change. documented in this encounter Plan of Treatment Not on file documented as of this encounter Visit Diagnoses Not on filedocumented in this encounter Care Teams Production Scheduler Relationship Specialty Start Date End Date Cecilia Lim MD PCP - General Family Medicine 12/21/19 12/30/20 Rodolfo Mantilla MD [address] [place] [address] Consulting Physician Neurology 12/21/19 documented as of this encounter
--- OUTSIDE RECORDS SUMMARY | 2024-10-31 03:51 | XMS_ITS | Encounter Summary ---
Author Organization [facility] Address [address] [place] [address] Phone Care Team Providers Care Oil Seal Assembler Name Role Phone Rodolfo Mantilla MD Unavailable Sabrina Ruffin MD Primary Care Provider Reason for Referral * Diagnostic Imaging (Routine) - Closed Specialty Diagnoses / Procedures Referred By Contbell t Referred To Contact Radiology Diagnoses NPH (normal pressure hydrocephalus) (HCC) Procedures CT Head WO Contrast Cindy Nelson NP Phone: tel: fax: [address] [address] Referral ID Status Reason Start Date Expiration Date Visits Re quested Visits Authorized [id number] Closed 12/31/2020 01/30/2022 1 1 NT DEVELOPMENT DIRECTOR Encounter Details Date Type Department Care Team (Late st Contact Info) Description 12/31/2020 10:15 AM TALENT DEVELOPMENT DIRECTOR Office Visit [facility] Neurosurgery [address] [facility] 6th [place] [address] [place] [address] Cindy Nelson NP [address] [facility] [address] [place] [address] NPH (normal pressure hydrocephalus) (CMS/HCC) (Primary Dx) Social History Tobacco Use Types Packs/Day Years Used Date Smoking Tobacco: Former Cigarettes Q uit: 07/27/1970 Smokeless Tobacco: Never Alcohol Use Standard Drinks/Week Comments Yes 1 (1 standard drink = 0.6 oz pur e alcohol) Comments No Sex and Gender Information Value Date Recorded Sex Assigned at Not on file Legal Sex Female 1:04 AM TALENT DEVELOPMENT DIRECTOR Gender Identity Not on file Sexual Orientation Not on file Occupation Industry Job Start Date Job End Date retired Not on file Not on file Not on file documented as of this encounter Progress Notes * Cindy Nelson NP - 12/31/2020 10:15 AM CST Images from the original note were not included. RETURN VISIT Subjective HISTORY OF PRESENT ILLNESS Olga Bansal is a 75 y.o. female with a history of normal pressure hydrocephalus who underwent right parietal SAMPLE WASHER shunt with a strata valve on 07/27/2020 with . Her valve was last changed on 08/28/2020 to setting of 1.5. She comes in today for routine follow-up and head CT check. Overall doing well. She tells me she has had this off sensation in her head since the shunt placement. This has not improved. She does not having new visual issues. She tells me since adjusted her shunt she has done better in her walking is improved. She does tell me that her shuffling has resolved since the shunt. She was also taken off for Parkinson's medications. She does tell me that now time she notices a sense that she is falling but she has not fallen. She does not have any bowel or bladder incontinence. She does haveconstipation. VITAL SIGNS There were no vitals taken for this visit. ALLERGIES She is allergic to celebrex [celecoxib] and sulfa (sulfonamide antibiotics). MEDICATIONS Current Outpatient Medications: ??? acetaminophen (TYLENOL) 325 mg tablet, Take 2 tablets (650 mg total) by mouth every 4 (four) hours as needed for pain, Disp: 30 tablet, Rfl: ??? atorvastatin (LIPITOR) 10 mg tablet, Take 10 mg by mouth daily., Disp: , Rfl: ??? carbidopa-levodopa (SINEMET) 25-100 mg per tablet, Take 4 tabs 3 times per day, Disp: 810 tablet, Rfl: 3 ??? docusate sodium (COLACE) 100 mg capsule, Take 1 capsule (100 mg total) by mouth 2 (two) times aday, Disp: , Rfl: ??? gabapentin (NEURONTIN) 300 mg capsule, Take 600 mg by mouth 2 (two) times a day , Disp: , Rfl: ??? hydroCHLOROthiazide (HYDRODIURIL) 12.5 mg tablet, Take 12.5 mg by mouth daily, Disp: , Rfl: ??? levothyroxine (SYNTHROID, LEVOTHROID) 100 mcg tablet, Take 100 mcg by mouth daily., Disp: , Rfl: 5 ??? metoprolol XL (TOPROL-XL) 50 mg 24 hr tablet, Take 50 mg by mouth daily., Disp: , Rfl: ??? morphine ER (MS CONTIN) 15 mg 12 hr tablet, Take 15 mg by mouth 2 (two) times a day, Disp: , Rfl: ??? oxyCODONE (ROXICODONE) 5 mg immediate release tablet, Take 1 tablet (5 mg total) by mouth every4 (four) hours as needed for pain, Disp: 15 tablet, Rfl: 0 ??? traZODone (DESYREL) 100 mg tablet, Take 50-100 mg by mouth nightly, Disp: , Rfl: ??? valsartan (DIOVAN) 160 mg tablet, Take 160 mg by mouth daily, Disp: , Rfl: ??? venlafaxine XR (EFFEXOR-XR) 37.5 mg 24 hr capsule, Take 37.5 mg by mouth as directed 1 cap in the morning and 2 caps in the evening, Disp: , Rfl: Objective PHYSICAL EXAM On the exam She awake, alert and oriented x3. Pupils are equal and reactive to light. Extraocular movements are intact. Cranial nerve exam is intact. Moves all extremities with equal strength. She walks reasonably steady with a slightly wide-based gait. Her strata valve was checked and noted to be at a setting of 1.5 REVIEW OF IMAGING EXAMINATION: CT head without contrast ?? HISTORY: Normal pressure hydrocephalus, follow-up. ?? TECHNIQUE: Noncontrast CT of the brain was performed with images acquired from skull base to vertex. ?? COMPARISON: Head CT from 08/28/2020. ?? FINDINGS: ?? A right parietal approach ventricular catheter crosses [...] identified. ?? IMPRESSION: Right parietal approach ventricular catheter with grossly unchanged mild to moderate enlargement of the lateral and 3rd ventricles. ?? Electronically signed by: Ranjan Brown M.D. Assessment/Plan PLAN Olga Bansal doing well from neurosurgery standpoint. At this time we discussed that she should increase her activities and see if this helps. She is very pleased with walking at the moment therefore we will keep her shunt at the current setting. She also does tell me she was diagnosed with spinal stenosis and at times her legs fatigue related to this. She is on gabapentin for that. I would like to see her back in 6 months with another head CT or sooner if any new issues arise. Cindy Nelson NP Cosigned by Leobardo Perez MD at 01/01/2021 10:39 AM TALENT DEVELOPMENT DIRECTOR NT DEVELOPMENT DIRECTOR NT DEVELOPMENT DIRECTOR documented in this encounter Plan of Treatment [...] signed by: Yamileth Cortez M.D. Cindy Nelson NP IMG CT PROCEDURES Final Resul t documented in this encounter Visit Diagnoses Diagnosis NPH (normal pressure hydrocephalus) (HCC)- Primary Idiopathic normal pressure hydrocephalus (INPH) NPH (normal pressure hydrocephalus) (HCC) Idiopathic normal pressure hydrocephalus (INPH) documented in this encounter Discontinued Medications Medication Sig Discontinue Reason Start Date End Da te oxyCODONE (ROXICODONE) 5 mg immediate release tabletIndications:Pain Take 1 tablet (5 mg total) by mouth every 4 (four) hours as needed for pain Therapy completed 07/28/2020 12/31/2020 docusate sodium (COLACE) 100 mg capsuleIndications:const ipation,Stool Softener Take 1 capsule (100 mg total) by mouth 2 (two) times a day Therapy completed 07/28/2020 12/31/2020 documented as of this encounter Care Teams Oil Seal Assembler Relationship Specialty Start Date End Date Sabrina Ruffin MD [address] [facility] [address] [place] [address] PCP - General Family Medicine 12/31/20 Rodolfo Mantilla MD [address] [place] [address] Consulting Physician Neurology 12/21/19 documented as of this encounter
--- OUTSIDE RECORDS SUMMARY | 2024-10-31 03:51 | XMS_ITS | Encounter Summary ---
Author Organization [facility] Address [address] [place] [address] Phone Care Team Providers Care Bead Wrapper Name Role Phone Willy Cummings MD Primary Care Provider [phone] Encounter Details Date Type Department Care Team (Late st Contact Info) Description 07/19/2019 Telephone [facility] Movement Disorders [address] [place] [phone] Rodolfo Mantilla MD [address] [place], [place] [id number] Social History Tobacco Use Types Packs/Day Years Used Date Smoking Tobacco: Former Smokeless Tobacco: Never Alcohol Use Standard Drinks/Week Comments Yes 1 (1 standard drink = 0.6 oz pur e alcohol) Comments Unknown Sex and Gender Information Value Date Recorded Sex Assigned at Not on file 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 reviewed rationale of duloxetine and that it can help multiple symptoms. She really didn't want to do that so she will taper the duloxetine and resume citalopram 20mg daily, calling back with an update in 2 weeks./dlk * Telephone Encounter - Neyda Yang CMA - 07/20/2019 9:49 AM CDT Pt is calling back. * Telephone Encounter - Rsoa Cadet RN - 07/20/2019 8:36 AM CDT I tried to call her back about this and had to leave a message to call back when able./arw * Telephone Encounter - Shruthi Rivero NP - 07/19/2019 3:40 PM CDT The reason that we were tapering and stopping citalopram is because she was already depressed and Shamar was on a 40 mg dose already. So, one option would be to go to 120 mg on the duloxetine and tosee if this helps mood, anxiety, and her neuropathic and orthopedic pain. If she does not wish to do that, it is okay to restart 20 mg of citalopram. For the duloxetine, she can do 30 mg/day for three days then stop. Thanks shruthi * Telephone Encounter - Rosa Cadet RN - 07/19/2019 1:33 PM CDT I called her. She tapered the citalopram and started dulxetine per starting on 05/24/19. She feels her depressive symptoms are much worse and she would like to stop the duloxetine and resume citalopram. Currently on duloxetine CR 30mg bid. I told her I would ask if we can overnight switch or how we should change this and get back to her. She was appreciative./arw * Telephone Encounter - Lori Olivares - 07/19/2019 1:04 PM CDT (MU) Pt wants to know if she can go back on Celexa. She states the current antidepressant is increasing her depression. Call back # [phone] Lori Gutierrez documented in this encounter Plan of Treatment Not on file documented as of this encounter Visit Diagnoses Not on filedocumented in this encounter Discontinued Medications Medication Sig Discontinue Reason Start Date End Da te DULoxetine DR (CYMBALTA) 30 mg capsule Take 1 capsule (30 mg total) by mouth 2 (two) times a day Discontinued by another clinician 05/24/2019 07/20/2019 documented as of this encounter Historical Medications * This list may reflect changes made after this encounter. citalopram (CeleXA) 20 mg tablet Take 20 mg by mouth daily She is weaning [address] (CYMBALTA) 30 mg capsule Take 1 cap by mouth daily for 3 days then discontinue 9 added in this encounter Care Teams Bead Wrapper Relationship Specialty Start Date End Date Willy Cummings MD [address] [place] [address] PCP - General 08/06/17 12/20/19 documented as of this encounter
--- OUTSIDE RECORDS SUMMARY | 2024-10-31 03:51 | XMS_ITS | Encounter Summary ---
Author Organization [facility] Address [address] [place] [address] Phone Care Team Providers Care Third Shift Lieutenant Name Role Phone Cecilia Lim MD Primary Care Provider Rodolfo Mantilla MD Unavailable Encounter Details Date Type Department Care Team (Late st Contact Info) Description 07/29/2020 Telephone [facility] Neurosurgery [address] [facility] 6th [place] [address] [place] [address] Leobardo Perez MD [address] [place] [address] Social History Tobacco Use Types Packs/Day Years Used Date Smoking Tobacco: Former Cigarettes Q uit: 07/27/1970 Smokeless Tobacco: Never Alcohol Use Standard Drinks/Week Comments Yes 1 (1 standard drink = 0.6 oz pur e alcohol) Comments No Sex and Gender Information Value Date Recorded Sex Assigned at Not on file Legal Sex Female 1:04 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 Gender Identity Not on file Sexual Orientation Not on file Occupation Industry Job Start Date Job End Date retired Not on file Not on file Not on file documented as of this encounter Miscellaneous Notes * Telephone Encounter - Red Abbey, PIERRE - 08/09/2020 2:38 PM CDT Patient called the office and is aware of the appointment with ABDIEL Patient is aware that the appointment details will be mailed to her home * Telephone Encounter - Abbey Moon RMA - 08/09/2020 8:11 AM CDT Called patient LM regarding the appointment information and HCT prior Appointment details will be mailed to the patient home as well Office number left for the patient to call the office back to confirm * Telephone Encounter - Candice Hill RN - 08/01/2020 3:06 PM CDT I added her on to 12:40, just have her come up when Head CT is complete. * Telephone Encounter - Abbey Moon RMA - 07/30/2020 10:51 AM CDT Patient is schedule for HCT on 08/28 1220 scan Please advise on time on 08/28 that ABDIEL can see the patient Thanks a lot * Telephone Encounter - Abbey Moon RMA - 07/29/2020 7:54 AM CDT HCT in chart Call to schedule Patient discharge home * Telephone Encounter - Abbey Moon RMA - 07/29/2020 7:54 AM CDT ----- Message from Riya Majano NP sent at 07/28/2020 1:44 PM CDT ----- Regarding: followup Hi, Patient to discharge today s/p shunt for NPH. Please schedule 4 week f/u with noncontrast HCT with Dr. Perez. Thanks, Riya Majano. documented in this encounter Plan of Treatment Not on file documented as of this encounter Visit Diagnoses Not on filedocumented in this encounter Care Teams Third Shift Lieutenant Relationship Specialty Start Date End Date Cecilia Lim MD PCP - General Family Medicine 12/21/19 12/30/20 Rodolfo Mantilla MD [address] [place] [address] Consulting Physician Neurology 12/21/19 documented as of this encounter
--- OUTSIDE RECORDS SUMMARY | 2024-10-31 03:51 | XMS_ITS | Encounter Summary ---
Author Organization [facility] Address [address] [place] [address] Phone Care Team Providers Care Silk Printer Name Role Phone Cecilia Lim MD Primary Care Provider Rodolfo Mantilla MD Unavailable Encounter Details Date Type Department Care Team (Late st Contact Info) Description 12/30/2019 Orders Only [facility] Movement Disorders [address] [place] [phone] Rodolfo Mantilla MD [address] [place] [address] NPH (normal pressure hydrocephalus) (CMS/HCC) (Primary Dx) Social History Tobacco Use Types Packs/Day Years Used Date Smoking Tobacco: Former Smokeless Tobacco: Never Alcohol Use Standard Drinks/Week Comments Yes 1 (1 standard drink = 0.6 oz pur e alcohol) Comments Unknown Sex and Gender Information Value Date Recorded Sex Assigned at Not on file Legal Sex Female 1:04 AM CONCRETE BLOCK LAYER Gender Identity Not on file Sexual Orientation [...] (INPH) documented in this encounter Care Teams Silk Printer Relationship Specialty Start Date End Date Cecilia Lim MD PCP - General Family Medicine 12/21/19 12/30/20 Rodolfo Mantilla MD [address] [place] [address] Consulting Physician Neurology 12/21/19 documented as of this encounter
--- OUTSIDE RECORDS SUMMARY | 2024-10-31 03:51 | XMS_ITS | Encounter Summary ---
Author Organization [facility] Address [address] [place] [address] Phone Care Team Providers Care Shipping Team Leader Name Role Phone Cecilia Lim MD Primary Care Provider Rodolfo Mantilla MD Unavailable Encounter Details Date Type Department Care Team (Late st Contact Info) Description 11/05/2020 Telephone [facility] Scheduling [address] [place], [place] [phone] Shruthi Rivero NP [address] [place], [place] [phone] Social History Tobacco Use Types Packs/Day Years Used Date Smoking Tobacco: Former Cigarettes Q uit: 07/27/1970 Smokeless Tobacco: Never Alcohol Use Standard Drinks/Week Comments Yes 1 (1 standard drink = 0.6 oz pur e alcohol) Comments No Sex and Gender Information Value Date Recorded Sex Assigned at Not on file Legal Sex Female 1:04 AM CNC MACHINIST 2ND SHIFT Gender Identity Not on file Sexual Orientation Not on file Occupation Industry Job Start Date Job End Date retired Not on file Not on file Not on file documented as of this encounter Miscellaneous Notes * Telephone Encounter - Nataly Jain - 11/05/2020 2:43 PM CST Called patient and reached voicemail. Left message to call back to reschedule. Pearl ----- Message from Shruthi Rivero NP sent at 11/05/2020 1:36 PM CNC MACHINIST 2ND SHIFT ----- Just called for this patient's appt and the told me she is not home and there is no way to get ah old of her on a cell phone. They would like to reschedule their phone appt with me. Please reschedule them for sometime in Oct or Nov. Ki[place]tay: Please jacquelyn as a no-show. Thanks a lot, shruthi MACHINIST 2ND SHIFT MACHINIST 2ND SHIFT documented in this encounter Plan of Treatment Not on file documented as of this encounter Visit Diagnoses Not on filedocumented in this encounter Care Teams Shipping Team Leader Relationship Specialty Start Date End Date Cecilia Lim MD PCP - General Family Medicine 12/21/19 12/30/20 Rodolfo Mantilla MD [address] [place] [address] Consulting Physician Neurology 12/21/19 documented as of this encounter
--- OUTSIDE RECORDS SUMMARY | 2024-10-31 03:51 | XMS_ITS | Encounter Summary ---
Author Organization [facility] Address [address] [place] [address] Phone Care Team Providers Care Case Monitor Name Role Phone Cecilia Lim MD Primary Care Provider Rodolfo Mantilla MD Unavailable Encounter Details Date Type Department Care Team (Late st Contact Info) Description 08/09/2020 Telephone [facility] Movement Disorders [address] [place] [phone] Rodolfo Mantilla MD [address] [place] [address] Social History Tobacco Use Types Packs/Day Years Used Date Smoking Tobacco: Former Cigarettes Q uit: 07/27/1970 Smokeless Tobacco: Never Alcohol Use Standard Drinks/Week Comments Yes 1 (1 standard drink = 0.6 oz pur e alcohol) Comments No Sex and Gender Information Value Date Recorded Sex Assigned at Not on file Legal Sex Female 1:04 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 I reviewed the taper of carbidopa/levodopa with her and she understood. She was very happy to taper and we discussed that if she notices any worsening as she reduces, to stay at that dosing and call us. I asked that she call once off the CD/LD completely and we will take it off her list and send the update to Dr. Mantilla. She was appreciative. * Telephone Encounter - Rodolfo Mantilla MD - 08/10/2020 9:39 AM CDT She can taper the carbidopa/levodopa by 1 tablet at each dose every week until she has stopped taking it. If she notices worsening she should call us. * Telephone Encounter - Lori Olivares - 08/09/2020 3:00 PM CDT (MU) Pt states she has recently had a shunt placed and it has resolved her balance issues. She wants to know if it's time to discontinue her meds. Call back #[phone] Lori Gutierrez documented in this encounter Plan of Treatment Not on file documented as of this encounter Visit Diagnoses Not on filedocumented in this encounter Care Teams Case Monitor Relationship Specialty Start Date End Date Cecilia Lim MD PCP - General Family Medicine 12/21/19 12/30/20 Rodolfo Mantilla MD [address] [place] [address] Consulting Physician Neurology 12/21/19 documented as of this encounter
--- OUTSIDE RECORDS SUMMARY | 2024-10-31 03:51 | XMS_ITS | Encounter Summary ---
Author Organization [facility] Healthcare Address [address] [place] [address] Care Team Providers Care Overlock Hemmer Name Role Phone Cecilia Lim MD Primary Care Provider Rodolfo Mantilla MD Unavailable Encounter Details Date Type Department Care Team (Latest Contact Info) Description 07/23/2020 2:36 PM CDT - 07/28/2020 3:15 PM CDT Hospital Encounter [facility] [address] [place] [address] Leobardo Perez MD [address] 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 Gender Identity Not on file Sexual Orientation Not on file Occupation Industry Job Start Date Job End Date retired Not on file Not on file Not on file documented as of this encounter Last Filed Vital Signs Vital Sign Reading Time Taken Comments Blood Pressure 145/84 07/28/2020 2:00 PM CDT Pulse 77 07/28/2020 2:00 PM CDT Temperature 36.5 ??C (97.7 ??F) 07/28/2020 2:00 PM CD T Respiratory Rate 20 07/28/2020 2:00 PM CDT Oxygen Saturation 95% 07/28/2020 2:00 PM CDT Inhaled Oxygen Concentration - - Weight 102.1 kg (225 lb) 07/23/2020 3:05 PM CDT Height 163.8 cm (5' 4.5 ) 07/23/2020 3:05 PM CDT Body Mass Index 38.02 07/23/2020 3:05 PM CDT documented in this encounter Discharge Diagnoses Diagnosis (Idiopathic) normal pressure hydrocephalus (HCC) - (IDIOPATHIC) NORMAL PRESSURE HYDROCEPHALUS Hypothyroidism, unspecified - HYPOTHYROIDISM, UNSPECIFIED Hyperlipidemia, unspecified - HYPERLIPIDEMIA, UNSPECIFIED Parkinson's disease (HCC) - PARKINSON'S DISEASE Paralysis agitans Essential (primary) hypertension - ESSENTIAL (PRIMARY) HYPERTENSION Unspecified essential hypertension Hormone replacement therapy - HORMONE REPLACEMENT THERAPY Other malaise - OTHER MALAISE Allergy status to other drugs, medicaments and biological substances - ALLERGY STATUS TO OTHER DRUGS, MEDICAMENTS AND BIOLOGICAL SUBSTANCES documented in this encounter Discharge Summaries * Riya Majano, ROUTE SALES SPECIALIST - 07/24/2020 3:41 PM CDT Inpatient Discharge Summary BRIEF OVERVIEW Admitting Provider: Leobardo Perez MD Discharge Provider: Leobardo Perez MD Primary Care Physician at Discharge: Cecilia Lim MD [phone] Admission Date: 07/23/2020 Discharge Date: 07/28/2020 Admission Location: [facility] Problems/Diagnoses: Principal Problem: NPH (normal pressure hydrocephalus) (CMS/HCC) Resolved Problems: No resolved hospital problems. DETAILS OF HOSPITAL STAY Presenting Problem/History of Present Illness: Olga Bansal is a 74 y.o. year-old female with a history of HLD, hypothyroidism, HTN, and parkinson's disease presenting as a direct admission for lumbar drain trial in the setting of normal pressure hydrocephalus. The patient sees Dr. Mantilla for her PD and it has been thought that this has also co ntributed to her functional debility and chief complaint of declining mobility. She takes sinemet for her PD. She also has been having declining memory. She has no focal neurological complaints including headache, dizziness, weakness, numbness, or tingling. MRI brain from 2018 demonstrates findingsconsistent with NPH. The patient was admitted for further evaluation and treatment. Hospital Course: Ms Bansal was admitted to [facility] on 07/23/20. On 07/24 he had an initial mckeon of 36, and his lumbar drain was placed. Subsequent bergs were 40, 42, and 46 and had subjectively improved gait. On 07/27 he went to the OR for a right parietal BLEACHING SUPERVISOR shunt placement. The patient was taken to the PACU for recovery and then transferred to [facility] for further observation Problems addressed during this hospitalization: 1. NPH: LD placement Procedures: 1. 07/23 Lumbar drain placement and right sided BLEACHING SUPERVISOR shunt placement Consults: 1. None GI/ Concerns: 1. Tolerating a regular diet 2. Last bowel movement was on 07/28. 3. Voiding spontaneously. Therapy recommendations: Home OP Incision: Dermabond abdomen Absorbable- head Surgical drains: Lumbar drain Placed 07/24 and removed 07/26 Notable medications: 1. Pain medications: Gabapentin 600mg BID, Morphine ER 15mg BID, Acetaminophen 650mg Q4 PRN, and Oxycodone 5mg Po Q4 PRN 2. Steroids: None 3. Antibiotics: None 4. Anticoagulation/antiplatelet agents: None 5. Anti-epileptic drugs: None Follow-up: 1. Neurosurgery: Dr. Perez: 4 weeks Active Issues Requiring Follow-up: None Test Results Pending at Discharge: None Operative Procedures Performed: 07/27 R P BLEACHING SUPERVISOR shunt 07/24 Lumbar drain Other Procedures: None Pertinent Test Results: 07/27 BLEACHING SUPERVISOR shunt series- Right parietal approach BLEACHING SUPERVISOR shunt with catheter coiling of the right lower quadrant with no definite kinks in the radiopaque portions of the catheter. However note suboptimal evaluation due to patient's large body habitus, as detailed above. 07/26 HCT- Moderate lateral ventricular dilation similar in appearance to 10/13/2018 with overall appearance in favor of normal pressure hydrocephalus 07/24 IR Successful lumbar puncture under fluoroscopic guidance for lumbar drain placement. Discharge Details Physical Exam at Discharge: Discharge Condition: good Pulse: 76 Resp: 16 BP: 158/70 Temp: 37.1 ??C (98.8 ??F) Weight: 102.1 kg (225 lb) Pertinent Exam Findings at Discharge: AOx3 PERRL, EOMI, F=, TML Motor 5/5 No drift Discharge Disposition: home Code Status at Discharge: Full Discharge Instructions: See avs Activity Instructions Discharge Activity: Lifting restrictions -Do NOT lift greater than 8-10 pounds until followup Discharge Activity: Walking -You may walk as tolerated. Diet Instructions Adult Discharge Diet Diet Type: Return to previous diet Other Instructions Call provider for: redness, tenderness, or signs of infection (pain, swelling, redness, odor or green/yellow discharge around incision site) Discharge Medications: Current Medications TAKE these medications acetaminophen 325 mg tablet Take 2 tablets (650 mg total) by mouth every 4 (four) hours as needed for pain For: pain Commonly known as: TYLENOL atorvastatin 10 mg tablet Take 10 mg by mouth daily. Commonly known as: LIPITOR carbidopa-levodopa 25-100 mg per tablet Take 4 tabs 3 times per day For: a type of movement disorder called parkinsonism Commonly known as: SINEMET docusate sodium 100 mg capsule Take 1 capsule (100 mg total) by mouth 2 (two) times a day For: constipation, Stool Softener Commonly known as: COLACE gabapentin 300 mg capsule Take 600 mg by mouth 2 (two) times a day Commonly known as: NEURONTIN hydroCHLOROthiazide 12.5 mg tablet Take 12.5 mg by mouth daily Commonly known as: HYDRODIURIL levothyroxine 100 mcg tablet Take 100 mcg by mouth daily. Commonly known as: SYNTHROID metoprolol XL 50 mg extended release tablet Take 50 mg by mouth daily. Commonly known as: TOPROL-XL morphine ER 15 mg 12 hr tablet Take 15 mg by mouth 2 (two) times a day Commonly known as: MS CONTIN oxyCODONE 5 mg immediate release tablet Take 1 tablet (5 mg total) by mouth every 4 (four) hours as needed for pain For: pain Commonly known as: ROXICODONE traZODone 100 mg tablet Take 50-100 mg by mouth nightly For: sleep Commonly known as: DESYREL valsartan 160 mg tablet Take 160 mg by mouth daily Commonly known as: DIOVAN venlafaxine XR 37.5 mg 24 hr capsule Take 37.5 mg by mouth as directed 1 cap in the morning and 2 caps in the evening Commonly known as: EFFEXOR-XR Outpatient Follow-Up: Future Appointments Date Time Provider Department Center 11/05/2020 1:30 PM Shruthi Rivero NP [facility] 04/17/2021 9:00 AM Rodolfo Mantilla MD [facility] Contact Information for Follow-ups Cecilia Lim MD Specialty: Family Medicine Relationship: PCP - General [address] [place] [address] Next Steps: Follow up Cosigned by Leobardo Perez MD at 07/30/2020 7:22 AM CDT documented in this encounter Discharge Instructions * Discharge Instructions* Riya Majano NP - 07/28/2020 6:36 AM CDT Discharge Instructions Shunt Placement or Revision Your doctor has performed surgery to place or fix a cerebrospinal fluid (CSF) shunt. If your shunt was fixed, one or more parts of the shunt system was replaced. The following are instructions and guidelines meant to help in your recovery once you have been discharged from the hospital. When to call our office Although your recovery will likely be uneventful, you may have some headaches and incisional pain. Call our office immediately (phone numbers listed at the end of these instructions) if you experience the following symptoms: ??? Drainage from the wound ??? Increased redness or pain at the incision site ??? Fever greater than 101??F ??? Nausea or vomiting ??? Change in mental status ??? Seizures ??? Intractable headache ??? Pain not relieved by pain medication or rest Call 911 immediately if you experience the following symptoms: ??? Sudden weakness or difficulty speaking and/or swallowing ??? Sudden onset persistent headache, with nausea and/or vomiting ??? Sudden change or loss of vision ??? New difficulty with breathing ??? Chest pain Wound care Your incisions on your head have been closed with dissolvable sutures. They do not need to be removed and will dissolve over the next 3-4 weeks. The incisions to your abdomen were closed with Dermabond, a special type of skin glue. This will flake and fall off over the next few weeks. ??? Keep your incision clean. Do NOT use lotions, ointments, or creams on the incision. ??? When wearing hats/scarfs, make sure they are clean and do not apply pressure to the incisions. ??? If you have a gauze dressing covering your wound, remove it within 3 days and leave the wound open to air. ??? You may get the incisions on your head wet beginning on 08/03 At that time, you may use a mild shampoo to wash your hair (baby shampoo is fine). If your wound gets wet, lightly dab it dry. You mayget the incisions on your abdomen wet now. Do not let water pressure from the shower hit it directly. If any of your incisions get wet, please pat them dry. ??? DO NOT submerge yourself in any water that will cover the incision (bathtub, hot tub, swimming pool), unless specifically cleared by your doctor. ??? Do not dye or perm your hair for at least 3 months after surgery. Activity You may feel tired and run down after surgery. It is normal to sleep more or take more naps. Light activity is ok but avoid heavy house work, yard work or strenuous exercise. Short walks are encouraged. Activities can be slowly increased as tolerated. Do not lift anything heavier than 5-10 pounds, or a gallon of milk. Driving privileges are left up to the discretion of your physician and will be discussed further atyour follow up appointment. You cannot drive while taking narcotic pain medication. [place] and [place] law prohibit anyone from operating a motor vehicle within 6 months of having a seizure. Diet You can return to your usual diet, unless instructed otherwise by your doctor. Medications You should resume taking all of your normal medications, unless instructed otherwise by your doctor. However, you should not take any blood thinners or antiplatelet agents (such as Aspirin, Plavix, or Coumadin) or any anti- inflammatory medications (such as: Motrin, Advil, Ibuprofen, Celebrex, Vioxx, Naprosyn), unless specifically approved by your doctor. If you have questions about your normal medications (such as those prescribed for high blood pressure), call your family doctor or chief communications officer. You may be given a prescription for pain medications, and possibly a laxative, as pain medications can cause constipation. Take the pain medicines as instructed. If your pain is not reasonably controlled by the medications, contact your doctor???s office. Follow up Neurosurgery: The office will call you with a follow-up appointment date and time. If you have not heard from them by 07/30, please call the office at [phone]. Phone numbers ??? Appointment Scheduling: ??? Doctor???s Office: Dr. Bradley Perez, ??? After hours emergency: or documented in this encounter Medications at Time of Discharge [...] 12/15/2019 08/29/2021 documented as of this encounter Ordered Prescriptions Prescription Sig Dispense Quantity Refills Last Filled Start Date End Date acetaminophen (TYLENOL) 325 mg tabletIndications: Pain Take 2 tablets (650 mg total) by mouth every 4 (four) hours as needed for pain 30 tablet 07/28/2020 docusate sodium (COLACE) 100 mg capsuleIndications :constipation,Stoo l Softener Take 1 capsule (100 mg total) by mouth 2 (two) times a day 07/28/2020 1 oxyCODONE (ROXICODONE) 5 mg immediate release tabletIndications: Pain Take 1 tablet (5 mg total) by mouth every 4 (four) hours as needed for pain 15 tablet 07/28/2020 1 documented in this encounter Discharge Disposition Disposition Code Departure Means Destination Discharge to home or self care documented in this encounter Progress Notes * Mayi Gilbert MD - 07/28/2020 6:04 AM CDT Neurosurgery Daily Progress Note 07/28/2020 Hospital course 07/23 admitted 07/24 Mike 36 prior to LD placement. Bedside LD placement attempts unsuccessful, LD placed under fluoroscopic guidance, pepcid & SQH started. Mckeon 40 after with subjectively improved walking as well 07/25 Mike 42, emesis after meds given Physical Exam: AOx3 PERRL, EOMI, F=, TML Motor 02/27 No drift Vitals: 24hr min/max vitals: Temp Min: 36 ??C (96.8 ??F) Max: 36.8 ??C (98.3 ??F) Pulse Min: 65 Max: 91 Resp Min: 10 Max: 25 SpO2 Min: 90 % Max: 100 % MAP (mmHg) Min: 73 Max: 117 Intake and output: I/O last 2 completed shifts: In: 2140 [P.O.:600; I.V.:1520; IV Piggyback:20] Out: - Medications: Scheduled atorvastatin, 10 mg, oral, Daily carbidopa-levodopa, 4 tablet, oral, TID AC docusate sodium, 100 mg, oral, BID Or docusate, 100 mg, feeding tube, BID famotidine, 20 mg, oral, BID gabapentin, 600 mg, oral, BID [Held by Provider] heparin, 5,000 Units, subcutaneous, Q12H NICKI hydroCHLOROthiazide, 12.5 mg, oral, Daily levothyroxine, 100 mcg, oral, Daily losartan, 100 mg, oral, Daily metoprolol XL, 50 mg, oral, Daily morphine ER, 15 mg, oral, BID sodium chloride 0.9%, 0.5-20 mL, intra-catheter, Q8H NICKI sodium chloride 0.9%, 0.5-20 mL, intra-catheter, Q8H NICKI venlafaxine XR, 150 mg, oral, Daily with breakfast As needed ??? acetaminophen, 650 mg, 650 mg at 07/28/20 0544 ??? albuterol, 2.5 mg, 2.5 mg at 07/24/20 1018 AND ipratropium, 0.5 mg, 0.5 mg at 07/24/20 1018 ??? benzocaine-menthoL, 1 lozenge, 1 lozenge at 07/27/20 1851 ??? bisacodyL, 10 mg ??? bisacodyl EC, 10 mg ??? ondansetron, 4 mg, 4 mg at 07/27/20 0902 ??? oxyCODONE, 5 mg, 5 mg at 07/28/20 0544 ??? polyethylene glycol, 17 g ??? sodium chloride 0.9%, 0.5-20 mL ??? sodium chloride 0.9%, 0.5-20 mL Labs: Lab Results Component Value Date SODIUM 139 07/23/2020 SODIUM 133 (L) 06/25/2017 SODIUM 135 06/23/2017 Lab Results Component Value Date GLUCOSE 101 07/27/2020 CALCIUM 9.0 07/23/2020 POTASSIUM 4.1 07/23/2020 CO2 31 07/23/2020 CHLORIDE 102 07/23/2020 BUNSER 19 07/23/2020 CREATININE 0.83 07/23/2020 Lab Results Component Value Date WBC 5.8 07/23/2020 WBC 5.55 06/25/2017 WBC 4.81 06/25/2017 HGB 10.9 (L) 07/23/2020 HGB 9.0 (L) 06/25/2017 HGB 7.4 (L) 06/25/2017 HCT 35.7 07/23/2020 HCT 28.3 (L) 06/25/2017 HCT 23.1 (L) 06/25/2017 LABPLAT 172 07/23/2020 LABPLAT 111 (L) 06/25/2017 LABPLAT 94 (L) 06/25/2017 Lab Results Component Value Date INR 1.2 07/23/2020 INR 1.32 (H) 06/25/2017 INR 1.61 (H) 06/23/2017 PT 12.5 07/23/2020 PT 15.1 (H) 06/25/2017 PT 18.5 (H) 06/23/2017 APTT 32 07/23/2020 APTT 31.4 05/12/2017 APTT 43.2 (H) 05/05/2017 No components found for: TROPONIN PT/OT recs PT Recommendation/Plan: Home with family, Outpatient PT OT Recommendation: Home with family Situational Awareness Consults: Meds: sinemet Results: Drains / turk ASA / PLX / Anticoag: Incision / Brace: Dispo / FU: Assessment Hospital Day: 6 Olga Bansal is a 74 y.o. year old female who presented with diagnosis of Gait instability requiring NPH workup lumbar drain trial, no AC/AP PMH PD (Ushe), HTN, HLD, hypothyroid Plan [ ] VPSS ok [ ] dispo Responsible team (call resident in bold with questions) Maximus Smart, Chief Resident ([phone]) Celi De Luna pager [phone] Chauncey Gilbert pager [phone] Note created by Chauncey Gilbert MD on 07/28/2020 at 6:04 AM. Cosigned by Leobardo Perez MD at 07/28/2020 1:03 PM CDT * Mayi Gilbert MD - 07/27/2020 6:06 PM CDT Neurosurgery Daily Progress Note 07/27/2020 Hospital course 07/23 admitted 07/24 Mckeon 36 prior to LD placement. Bedside LD placement attempts unsuccessful, LD placed under fluoroscopic guidance, pepcid & SQH started. Mckeon 40 after with subjectively improved walking as well 07/25 Mckeon 42, emesis after meds given Physical Exam: AOx3 PERRL, EOMI, F=, TML Motor 02/27 No drift Vitals: 24hr min/max vitals: Temp Min: 36 ??C (96.8 ??F) Max: 36.9 ??C (98.4 ??F) Pulse Min: 60 Max: 91 Resp Min: 10 Max: 25 SpO2 Min: 90 % Max: 100 % MAP (mmHg) Min: 59 Max: 117 Intake and output: I/O last 2 completed shifts: In: 345 [I.V.:345] Out: 50 Medications: Scheduled atorvastatin, 10 mg, oral, Daily carbidopa-levodopa, 4 tablet, oral, TID AC ceFAZolin, 2,000 mg, intravenous, Q8H docusate sodium, 100 mg, oral, BID Or docusate, 100 mg, feeding tube, BID famotidine, 20 mg, oral, BID gabapentin, 600 mg, oral, BID [Held by Provider] heparin, 5,000 Units, subcutaneous, Q12H NICKI hydroCHLOROthiazide, 12.5 mg, oral, Daily levothyroxine, 100 mcg, oral, Daily losartan, 100 mg, oral, Daily metoprolol XL, 50 mg, oral, Daily morphine ER, 15 mg, oral, BID sodium chloride 0.9%, 0.5-20 mL, intra-catheter, Q8H NICKI sodium chloride 0.9%, 0.5-20 mL, intra-catheter, Q8H NICKI venlafaxine XR, 150 mg, oral, Daily with breakfast As needed ??? acetaminophen, 650 mg, 650 mg at 07/27/20 1604 ??? albuterol, 2.5 mg, 2.5 mg at 07/24/20 1018 AND ipratropium, 0.5 mg, 0.5 mg at 07/24/20 1018 ??? benzocaine-menthoL, 1 lozenge ??? bisacodyL, 10 mg ??? bisacodyl EC, 10 mg ??? ondansetron, 4 mg, 4 mg at 07/27/20 0902 ??? oxyCODONE, 5 mg, 5 mg at 07/27/20 1604 ??? polyethylene glycol, 17 g ??? sodium chloride 0.9%, 0.5-20 mL ??? sodium chloride 0.9%, 0.5-20 mL Labs: Lab Results Component Value Date SODIUM 139 07/23/2020 SODIUM 133 (L) 06/25/2017 SODIUM 135 06/23/2017 Lab Results Component Value Date GLUCOSE 101 07/27/2020 CALCIUM 9.0 07/23/2020 POTASSIUM 4.1 07/23/2020 CO2 31 07/23/2020 CHLORIDE 102 07/23/2020 BUNSER 19 07/23/2020 CREATININE 0.83 07/23/2020 Lab Results Component Value Date WBC 5.8 07/23/2020 WBC 5.55 06/25/2017 WBC 4.81 06/25/2017 HGB 10.9 (L) 07/23/2020 HGB 9.0 (L) 06/25/2017 HGB 7.4 (L) 06/25/2017 HCT 35.7 07/23/2020 HCT 28.3 (L) 06/25/2017 HCT 23.1 (L) 06/25/2017 LABPLAT 172 07/23/2020 LABPLAT 111 (L) 06/25/2017 LABPLAT 94 (L) 06/25/2017 Lab Results Component Value Date INR 1.2 07/23/2020 INR 1.32 (H) 06/25/2017 INR 1.61 (H) 06/23/2017 PT 12.5 07/23/2020 PT 15.1 (H) 06/25/2017 PT 18.5 (H) 06/23/2017 APTT 32 07/23/2020 APTT 31.4 05/12/2017 APTT 43.2 (H) 05/05/2017 No components found for: TROPONIN PT/OT recs PT Recommendation/Plan: Home with family, Outpatient PT OT Recommendation: Home with family Situational Awareness Consults: Meds: sinemet Results: Drains / turk ASA / PLX / Anticoag: Incision / Brace: Dispo / FU: Assessment Hospital Day: 5 Olga Bansal is a 74 y.o. year old female who presented with diagnosis of Gait instability requiring NPH workup lumbar drain trial, no AC/AP PMH PD (Ushe), HTN, HLD, hypothyroid Plan [ ] OR for shunt Responsible team (call resident in bold with questions) Maximus Smart, Chief Resident ([phone]) Celi De Luna pager [phone] Chauncey Gilbert pager [phone] Note created by Chauncey Gilbert MD on 07/27/2020 at 6:06 PM. Cosigned by Leobardo Perez MD at 07/28/2020 1:03 PM CDT * Ladi Boucher NP - 07/27/2020 5:51 PM CDT Neurosurgery Post Op Check Note Surgeon: Dr. Perez Procedure: R VPS Exam: A & O x 3 PERRL, EOMI, F=, TML BUE/BLE 5/5, no drift Incisions c/d/i Ladi Boucher NP * Celi De Luna MD - 07/26/2020 2:34 PM CDT Neurosurgery Preoperative Note Surgeon: Dr. Perez Diagnosis: NPH Procedure: R P VPS OR date: 07/27/20 Labs: BMP Lab Results Component Value Date SODIUM 139 07/23/2020 POTASSIUM 4.1 07/23/2020 CO2 31 07/23/2020 BUNSER 19 07/23/2020 GLUCOSE 169 07/23/2020 CREATININE 0.83 07/23/2020 CALCIUM 9.0 07/23/2020 CHLORIDE 102 07/23/2020 CBC Lab Results Component Value Date WBC 5.8 07/23/2020 HGB 10.9 (L) 07/23/2020 HCT 35.7 07/23/2020 LABPLAT 172 07/23/2020 NEUTOPHILPCT 69.9 06/25/2017 LYMPHOPCT 16.4 06/25/2017 MONOPCT 5.9 06/25/2017 EOSPCT 7.2 06/25/2017 Coags Lab Results Component Value Date APTT 32 07/23/2020 INR 1.2 07/23/2020 Type and screen Lab Results Component Value Date ABORH A Positive 07/26/2020 UA Lab Results Component Value Date COLORU Yellow 07/23/2020 CLARITYU Clear 07/23/2020 SPECGRAVU 1.012 07/23/2020 PHURINE 6 07/23/2020 PROTURQL Negative 07/23/2020 GLUCOSEUR Negative 07/23/2020 KETONESU Negative 07/23/2020 BILIRUBINUR Negative 07/23/2020 BLOODUR Negative 07/23/2020 UROBILINOGEN <2.0 07/23/2020 NITRITEU Negative 07/23/2020 LEUKESTUR 2+ (A) 07/23/2020 VerifyNow No results found for: SALICYLATE, [id number] CXR: pending EKG: reviewed Covid-19: Negative Patient NPO?: after midnight prior to surgery IVF while NPO: yes Imaging: stealth imaging acquired and preoperative CT reviewed Blood products: 2 units crossed (difficulty crossmatch) Surgery & Blood Consents: pending IPAP/CPAP called: yes I have discussed the risks, benefits and indications of the above procedure with the patient and their family. Specifically, we discussed the risks of infection, bleeding, stroke, coma, or . We also discussed the risks of damage to structures in neck, thorax, or abdomen and future shunt obstruction/infection requiring revision. They indicated understanding of these risks and agreed to proceed. Celi De Luna MD * Plog, Joesph Cooper MD PhD - 07/26/2020 11:52 AM CDT Neurosurgery note: Lumbar drain removal Lumbar drain site was noted to be clean, dry, and intact. The site was sterilized with chloraprep. The drain was removed using sterile technique. The tip was noted to be intact. The site was closed with a [id number] stitch using 3-0 absorbable monocryl suture. No issues. Joesph Melton MD PhD * Mayi Gilbert MD - 07/26/2020 7:17 AM CDT Neurosurgery Daily Progress Note 07/26/2020 Hospital course 07/23 admitted 07/24 Mckeon 36 prior to LD placement. Bedside LD placement attempts unsuccessful, LD placed under fluoroscopic guidance, pepcid & SQH started. Mckeon 40 after with subjectively improved walking as well 07/25 Mike 42, emesis after meds given Physical Exam: AOx3 PERRL, EOMI, F=, TML Motor 5/5 No drift Vitals: 24hr min/max vitals: Temp Min: 36.8 ??C (98.3 ??F) Max: 37.2 ??C (98.9 ??F) Pulse Min: 63 Max: 75 Resp Min: 13 Max: 23 SpO2 Min: 88 % Max: 97 % MAP (mmHg) Min: 73 Max: 91 Intake and output: I/O last 2 completed shifts: In: 150 [P.O.:150] Out: 880 [Urine:650] Medications: Scheduled atorvastatin, 10 mg, oral, Daily carbidopa-levodopa, 4 tablet, oral, TID AC docusate sodium, 100 mg, oral, BID Or docusate, 100 mg, feeding tube, BID famotidine, 20 mg, oral, BID gabapentin, 600 mg, oral, BID heparin, 5,000 Units, subcutaneous, Q12H NICKI hydroCHLOROthiazide, 12.5 mg, oral, Daily levothyroxine, 100 mcg, oral, Daily losartan, 100 mg, oral, Daily metoprolol XL, 50 mg, oral, Daily morphine ER, 15 mg, oral, BID sodium chloride 0.9%, 0.5-20 mL, intra-catheter, Q8H NICKI venlafaxine XR, 150 mg, oral, Daily with breakfast As needed ??? acetaminophen, 650 mg, 650 mg at 07/25/20 1153 ??? albuterol, 2.5 mg, 2.5 mg at 07/24/20 1018 AND ipratropium, 0.5 mg, 0.5 mg at 07/24/20 1018 ??? ondansetron, 4 mg, 4 mg at 07/25/20 1929 ??? oxyCODONE, 5 mg, 5 mg at 07/25/20 0312 ??? sodium chloride 0.9%, 0.5-20 mL Labs: Lab Results Component Value Date SODIUM 139 07/23/2020 SODIUM 133 (L) 06/25/2017 SODIUM 135 06/23/2017 Lab Results Component Value Date GLUCOSE 169 07/23/2020 CALCIUM 9.0 07/23/2020 POTASSIUM 4.1 07/23/2020 CO2 31 07/23/2020 CHLORIDE 102 07/23/2020 BUNSER 19 07/23/2020 CREATININE 0.83 07/23/2020 Lab Results Component Value Date WBC 5.8 07/23/2020 WBC 5.55 06/25/2017 WBC 4.81 06/25/2017 HGB 10.9 (L) 07/23/2020 HGB 9.0 (L) 06/25/2017 HGB 7.4 (L) 06/25/2017 HCT 35.7 07/23/2020 HCT 28.3 (L) 06/25/2017 HCT 23.1 (L) 06/25/2017 LABPLAT 172 07/23/2020 LABPLAT 111 (L) 06/25/2017 LABPLAT 94 (L) 06/25/2017 Lab Results Component Value Date INR 1.2 07/23/2020 INR 1.32 (H) 06/25/2017 INR 1.61 (H) 06/23/2017 PT 12.5 07/23/2020 PT 15.1 (H) 06/25/2017 PT 18.5 (H) 06/23/2017 APTT 32 07/23/2020 APTT 31.4 05/12/2017 APTT 43.2 (H) 05/05/2017 No components found for: TROPONIN PT/OT recs PT Recommendation/Plan: Home with family, Outpatient PT Situational Awareness Consults: Meds: sinemet Results: Drains / turk ASA / PLX / Anticoag: Incision / Brace: Dispo / FU: Assessment Hospital Day: 4 Olga Bansal is a 74 y.o. year old female who presented with diagnosis of Gait instability requiring NPH workup lumbar drain trial, no AC/AP PMH PD (Ushe), HTN, HLD, hypothyroid Plan [ ] PT Mike spann Responsible team (call resident in bold with questions) Maximus Smart, Chief Resident ([phone]) Celi De Luna pager [phone] Chauncey Gilbert pager [phone] Note created by Chauncey Gilbert MD on 07/26/2020 at 7:17 AM. Cosigned by Leobardo Perez MD at 07/28/2020 1:03 PM CDT * Celi De Luna MD - 07/25/2020 6:15 AM CDT Neurosurgery Daily Progress Note 07/25/2020 Hospital course 07/23 admitted 07/24 Mckeon 36 prior to LD placement. Bedside LD placement attempts unsuccessful, LD placed under fluoroscopic guidance, pepcid & SQH started. Mckeon 40 after with subjectively improved walking as well Physical Exam: AOx3 PERRL, EOMI, F=, TML Motor 5/5 No drift Vitals: 24hr min/max vitals: Temp Min: 36.5 ??C (97.7 ??F) Max: 37.1 ??C (98.7 ??F) Pulse Min: 64 Max: 80 Resp Min: 8 Max: 26 SpO2 Min: 88 % Max: 100 % MAP (mmHg) Min: 75 Max: 104 Intake and output: I/O last 2 completed shifts: In: 800 [P.O.:800] Out: 1138 [Urine:1100] Medications: Scheduled atorvastatin, 10 mg, oral, Daily carbidopa-levodopa, 4 tablet, oral, TID AC docusate sodium, 100 mg, oral, BID Or docusate, 100 mg, feeding tube, BID famotidine, 20 mg, oral, BID gabapentin, 600 mg, oral, BID heparin, 5,000 Units, subcutaneous, Q12H NICKI hydroCHLOROthiazide, 12.5 mg, oral, Daily levothyroxine, 100 mcg, oral, Daily losartan, 100 mg, oral, Daily metoprolol XL, 50 mg, oral, Daily morphine ER, 15 mg, oral, BID sodium chloride 0.9%, 0.5-20 mL, intra-catheter, Q8H NICKI venlafaxine XR, 150 mg, oral, Daily with breakfast As needed ??? acetaminophen, 650 mg, 650 mg at 07/24/20 1030 ??? albuterol, 2.5 mg, 2.5 mg at 07/24/20 1018 AND ipratropium, 0.5 mg, 0.5 mg at 07/24/20 1018 ??? ondansetron, 4 mg, 4 mg at 07/24/20 1631 ??? oxyCODONE, 5 mg, 5 mg at 07/25/20 0312 ??? sodium chloride 0.9%, 0.5-20 mL Labs: Lab Results Component Value Date SODIUM 139 07/23/2020 SODIUM 133 (L) 06/25/2017 SODIUM 135 06/23/2017 Lab Results Component Value Date GLUCOSE 169 07/23/2020 CALCIUM 9.0 07/23/2020 POTASSIUM 4.1 07/23/2020 CO2 31 07/23/2020 CHLORIDE 102 07/23/2020 BUNSER 19 07/23/2020 CREATININE 0.83 07/23/2020 Lab Results Component Value Date WBC 5.8 07/23/2020 WBC 5.55 06/25/2017 WBC 4.81 06/25/2017 HGB 10.9 (L) 07/23/2020 HGB 9.0 (L) 06/25/2017 HGB 7.4 (L) 06/25/2017 HCT 35.7 07/23/2020 HCT 28.3 (L) 06/25/2017 HCT 23.1 (L) 06/25/2017 LABPLAT 172 07/23/2020 LABPLAT 111 (L) 06/25/2017 LABPLAT 94 (L) 06/25/2017 Lab Results Component Value Date INR 1.2 07/23/2020 INR 1.32 (H) 06/25/2017 INR 1.61 (H) 06/23/2017 PT 12.5 07/23/2020 PT 15.1 (H) 06/25/2017 PT 18.5 (H) 06/23/2017 APTT 32 07/23/2020 APTT 31.4 05/12/2017 APTT 43.2 (H) 05/05/2017 No components found for: TROPONIN PT/OT recs PT Recommendation/Plan: Home with family, Outpatient PT Situational Awareness Consults: Meds: sinemet Results: Drains / turk ASA / PLX / Anticoag: Incision / Brace: Dispo / FU: Assessment Hospital Day: 3 Olga Bansal is a 74 y.o. year old female who presented with diagnosis of Gait instability requiring NPH workup lumbar drain trial, no AC/AP PMH PD (Ushe), HTN, HLD, hypothyroid Plan [ ] PT [facility] Responsible team (call resident in bold with questions) Maximus Smart, Chief Resident ([phone]) Celi De Luna pager [phone] Chauncey Gilbert pager [phone] Note created by Celi De Luna MD on 07/25/2020 at 6:15 AM. Cosigned by Leobardo Perez MD at 07/25/2020 8:21 AM CDT * David West RN - 07/24/2020 4:02 PM CDT 07/24/20 1602 Information Information Obtained From Spouse (via telephone) Name Calderon Bansal [phone] Referral Data Referral Source Self referral Prior to Admission Primary Caregiver Self Support System Spouse/Significant Other;Children Support system contact info (name, phone, availablity) Calderon Bansal [phone] (spouse) Home Care Services No Durable Medical Equipment Cane (single prong);Walker (wheeled);Walker (no wheels) Living Arrangements Spouse/significant other (Dtr likly to move in soon) Type of Residence Private residence Steps in home? Yes, Outside of home Number of steps outside: 3 steps Financial Resource Income [employer]/Pension Payor Source Medicare;Supplemental ([facility]) Potential Discharge Needs Anticipated discharge level of care Private residence Patient expects to be discharged to: Private residence Dialysis No Behavioral Health Services No Impression: admitted with NPH Plan of care: Role and purpose of case management explained. Demographics verified with the face sheet. Patient will discharge when medically stable. Patient has family for home support and transportation. Patient does not feel that Home Health will be needed at this time, if that should change, CMwill provide pt with a list of Home Health agencies to choose from. Pt was receiving Outpatient PT prior to admission. Insurance verified: Medicare A/ B & [facility] Admission source: non health care point of origin Home Pharmacy verified: [facility] PCP verified: Dr. Lim is no longer in the office; pt follows in the same office; CM to verify and update Problem: Patient to return to safe home environment with family/friends for home support and transportation. Goal: CM to follow for planning and referrals as needed. Through the course of our work I determined that Calderon possesses the skill and ability to provide and monitor the care of the patient when he or she returns home.Calderon has the capacity to provide/monitor/arrange for the care of the patient. Finally, we determined that Calderon has the knowledge of available resources and that combining them with their existing resources will suffice to sustain and carefor the patient when he or she returns home. The treatment team is aware of this information. All are in agreement with the aftercare plan. Addendum 07/25/2020 2888 CM verified pt's PCP is Zion Alejandre [phone]. (Physician took over Dr. Lim's practice) * Celi De Luna MD - 07/24/2020 11:42 AM CDT Neurosurgery Lumbar Drain Placement attempt Attending surgeon: Dr. Perez Resident surgeon: Celi De Luna MD Location of procedure: Floor Preoperative diagnosis: NPH workup Postoperative diagnosis: NPH workup Condition prior to procedure: stable Condition after procedure: stable Estimated blood loss: minimal Specimen/tissue removed: none Name of procedure: Lumbar drain placement Brief history: Olga Bansal is a 74 y.o. female who presents for lumbar drain trial as part of NPH workup Consent was obtained after a full discussion of the risks and benefits of the procedure with the patient and their family. Prior to the procedure, the patient's labs were verified as being within normal limits, specifically with an INR of less than 1.4 and a platelet count greater than 100. The patient received 2g of ancef prior to the procedure. A timeout was performed verifying the patient's name, date of , and allergies. Description of procedure/operative findings: The patient was positioned in the lateral decubitus position with their knees tucked up to the chest. The lower back was prepped and draped in the usual fashion. Lidocaine was injected for local anesthesia. Next a 14-gauge Touhy needle was inserted between the spinous processes at the level of L4-5and later at L3-4. CSF flow could not be obtained despite multiple attempts by myself and the chiefresident. Finally, decision was made to abort and attempt under fluoroscopic guidance. At the end of the procedure all sharps were accounted for and properly disposed of. The patient tolerated the procedure well and there were no procedural complications. * Celi De Luna MD - 07/24/2020 8:15 AM CDT Neurosurgery Preoperative Note Surgeon: Dr. Perez Diagnosis: NPH arvizu Procedure: Lumbar drain placement OR date: 07/24/20 Labs: BMP Lab Results Component Value Date SODIUM 139 07/23/2020 POTASSIUM 4.1 07/23/2020 CO2 31 07/23/2020 BUNSER 19 07/23/2020 GLUCOSE 169 07/23/2020 CREATININE 0.83 07/23/2020 CALCIUM 9.0 07/23/2020 CHLORIDE 102 07/23/2020 CBC Lab Results Component Value Date WBC 5.8 07/23/2020 HGB 10.9 (L) 07/23/2020 HCT 35.7 07/23/2020 LABPLAT 172 07/23/2020 NEUTOPHILPCT 69.9 06/25/2017 LYMPHOPCT 16.4 06/25/2017 MONOPCT 5.9 06/25/2017 EOSPCT 7.2 06/25/2017 Coags Lab Results Component Value Date APTT 32 07/23/2020 INR 1.2 07/23/2020 Type and screen Lab Results Component Value Date ABORH A Positive 07/23/2020 UA Lab Results Component Value Date COLORU Yellow 07/23/2020 CLARITYU Clear 07/23/2020 SPECGRAVU 1.012 07/23/2020 PHURINE 6 07/23/2020 PROTURQL Negative 07/23/2020 GLUCOSEUR Negative 07/23/2020 KETONESU Negative 07/23/2020 BILIRUBINUR Negative 07/23/2020 BLOODUR Negative 07/23/2020 UROBILINOGEN <2.0 07/23/2020 NITRITEU Negative 07/23/2020 LEUKESTUR 2+ (A) 07/23/2020 VerifyNow No results found for: SALICYLATE, [id number] CXR: reviewed EKG: pending Covid-19: Pending Patient NPO?: n/a IVF while NPO: N/A Imaging: n/a Blood products: T&S only Surgery & Blood Consents: paper consent in chart IPAP/CPAP called: N/A I have discussed the risks, benefits and indications of the above procedure with the patient and their family. Specifically, we discussed the risks of infection, bleeding, and CSF leak. They indicated understanding of these risks and agreed to proceed. Celi De Luna MD * Celi De Luna MD - 07/24/2020 6:14 AM CDT Neurosurgery Daily Progress Note 07/24/2020 Hospital course 07/23 admitted Physical Exam: AOx3 PERRL, EOMI, F=, TML Motor 5/5 No drift Vitals: 24hr min/max vitals: Temp Min: 36.2 ??C (97.2 ??F) Max: 36.4 ??C (97.6 ??F) Pulse Min: 68 Max: 81 Resp Min: 15 Max: 21 SpO2 Min: 93 % Max: 97 % MAP (mmHg) Min: 82 Max: 113 Intake and output: I/O last 2 completed shifts: In: 10 [I.V.:10] Out: 300 [Urine:300] Medications: Scheduled atorvastatin, 10 mg, oral, Daily carbidopa-levodopa, 4 tablet, oral, TID AC docusate sodium, 100 mg, oral, BID Or docusate, 100 mg, feeding tube, BID gabapentin, 600 mg, oral, BID hydroCHLOROthiazide, 12.5 mg, oral, Daily levothyroxine, 100 mcg, oral, Daily losartan, 100 mg, oral, Daily metoprolol XL, 50 mg, oral, Daily morphine ER, 15 mg, oral, BID sodium chloride 0.9%, 0.5-20 mL, intra-catheter, Q8H NICKI venlafaxine XR, 150 mg, oral, Daily with breakfast As needed ??? acetaminophen, 650 mg ??? ondansetron, 4 mg ??? prochlorperazine, 10 mg ??? sodium chloride 0.9%, 0.5-20 mL Labs: Lab Results Component Value Date SODIUM 139 07/23/2020 SODIUM 133 (L) 06/25/2017 SODIUM 135 06/23/2017 Lab Results Component Value Date GLUCOSE 169 07/23/2020 CALCIUM 9.0 07/23/2020 POTASSIUM 4.1 07/23/2020 CO2 31 07/23/2020 CHLORIDE 102 07/23/2020 BUNSER 19 07/23/2020 CREATININE 0.83 07/23/2020 Lab Results Component Value Date WBC 5.8 07/23/2020 WBC 5.55 06/25/2017 WBC 4.81 06/25/2017 HGB 10.9 (L) 07/23/2020 HGB 9.0 (L) 06/25/2017 HGB 7.4 (L) 06/25/2017 HCT 35.7 07/23/2020 HCT 28.3 (L) 06/25/2017 HCT 23.1 (L) 06/25/2017 LABPLAT 172 07/23/2020 LABPLAT 111 (L) 06/25/2017 LABPLAT 94 (L) 06/25/2017 Lab Results Component Value Date INR 1.2 07/23/2020 INR 1.32 (H) 06/25/2017 INR 1.61 (H) 06/23/2017 PT 12.5 07/23/2020 PT 15.1 (H) 06/25/2017 PT 18.5 (H) 06/23/2017 APTT 32 07/23/2020 APTT 31.4 05/12/2017 APTT 43.2 (H) 05/05/2017 No components found for: TROPONIN PT/OT recs Situational Awareness Consults: Meds: sinemet Results: Drains / turk ASA / PLX / Anticoag: Incision / Brace: Dispo / FU: Assessment Hospital Day: 2 Olga Bansal is a 74 y.o. year old female who presented with diagnosis of Gait instability requiring NPH workup lumbar drain trial, no AC/AP PMH PD (Ushe), HTN, HLD, hypothyroid Plan [ ] PT for Mckeon in AM ordered [ ] LD placement [ ] start pepcid, SQH (after LD placement) Responsible team (call resident in bold with questions) Maximus Samrt, Chief Resident ([phone]) Celi De Luna pager [phone] Chauncey Gilbert pager [phone] Note created by Celi De Luna MD on 07/24/2020 at 6:15 AM. Cosigned by Leobardo Perez MD at 07/25/2020 8:21 AM CDT documented in this encounter H&P Notes * Juve Bustos MD - 07/23/2020 10:10 PM CDT Neurosurgery History and Physical Patient: Olga Bansal CSN: [id number] : 1945 Admission date: 07/23/2020 Admitting attending: Dr. Perez Chief complaint: NPH workup, lumbar drain trial History of present illness: Olga Bansal is a 74 y.o. year-old female with a history of HLD, hypothyroidism, HTN, and parkinson's disease presenting as a direct admission for lumbar drain trial in the setting of normal pressure hydrocephalus. The patient sees Dr. Mantilla for her PD and it has been thought that this has also co ntributed to her functional debility and chief complaint of declining mobility. She takes sinemet for her PD. She also has been having declining memory. She has no focal neurological complaints including headache, dizziness, weakness, numbness, or tingling. MRI brain from 2018 demonstrates findingsconsistent with NPH. Review of systems: A full review of systems was completed and was negative unless otherwise stated in the HPI. Past medical/surgical history: 1. Parkinson's disease 2. HTN 3. HLD 4. Hypothyroidism 5. L eye retinal artery leakage Allergies: Allergies Allergen Reactions ??? Celebrex [Celecoxib] Nausea only ??? Sulfa (Sulfonamide Antibiotics) Other (See comments) and Unknown Reaction: Medications: HOME MEDICATIONS : morphine ER (MS CONTIN) 15 mg 12 hr tablet traZODone (DESYREL) 100 mg tablet valsartan (DIOVAN) 160 mg tablet atorvastatin (LIPITOR) 10 mg tablet carbidopa-levodopa (SINEMET) 25-100 mg per tablet gabapentin (NEURONTIN) 300 mg capsule hydroCHLOROthiazide (HYDRODIURIL) 12.5 mg tablet levothyroxine (SYNTHROID, LEVOTHROID) 100 mcg tablet metoprolol XL (TOPROL-XL) 50 mg 24 hr tablet UNABLE TO FIND venlafaxine XR (EFFEXOR-XR) 37.5 mg 24 hr capsule acetaminophen-codeine (TYLENOL with CODEINE #3) 300-30 mg per tablet cholecalciferol (VITAMIN D-3) 1000 unit tablet losartan (COZAAR) 50 mg tablet mirtazapine (REMERON) 30 mg tablet traZODone (DESYREL) 100 mg tablet venlafaxine XR (EFFEXOR-XR) 150 mg 24 hr capsule Social history: The patient lives in [place], [place]. Her Calderon can be reached at [phone]. Family history: Reviewed and noncontributory. Physical Examination: Neuro: AOx3, PERRL, EOMI, F=, TML 5/5 BUE, BLE, no drift, SILT Psych: normal affect Constitutional: no acute distress HENT: normocephalic Cardiovascular: normal rate Pulmonary: normal respiratory effort Abdominal: non-distended Musculoskeletal: normal range of motion Imaging and Labs: MRI brain from 2018 demonstrates findings consistent with NPH. Labs pending Assessment and Plan: This is a 74 year old woman with a history of parkinson's disease presenting for lumbar drain trialin the setting of NPH with no other neurological complaints or focal exam changes. 1. BMP, CBC, PT, PTT, UA macro-micro, CXR, EKG, T&S 2. PT eval pre- and post-drain 3. Lumbar drain placement in AM This plan has been discussed with the chief resident and attending loss prevention/safety district manager. Juve Bustos MD Cosigned by Leobardo Perez MD at 07/24/2020 10:12 AM CDT Associated attestation - Leobardo Perez MD - 07/24/2020 10:12 AM CDT I have seen and examined the patient on 07/23/2020. I agree with the findings and plan of care as documented in the resident's/fellow's note.. documented in this encounter Nursing Notes * Ofelia Reyes RN - 07/28/2020 3:15 PM CDT Pt was discharged to home. VSS, was at bedside, personal belongings were taken with her, discharge paperwork done and education was completed. * Rochelle Murdock RN - 07/25/2020 10:50 PM CDT Neurosurgery loss prevention/safety district manager resident Shamir Lynch notified of drainage on sheets and under dressing of lumbar drain. He stated he will come examine the patient at some point tonight. Will continue to monitorsite. * Jacquelin Adkins RN - 07/24/2020 10:00 AM CDT Patient c/o shortness of breath, began to wheeze, remains alert and oriented. C/o feelinh flushed and hot. Patient placed on 5LNC. Procedure stopped ROUTE SALES SPECIALIST and MD at bedside. CXR obtained. Respiratory treatments given. Will cont to monitor documented in this encounter Miscellaneous Notes * Plan of Care - Jazzmine Bates, PT - 07/28/2020 8:31 AM CDT Problem: Mobility Goal: STG - Patient will ambulate Description: 150 feet independent Outcome: Progressing * Plan of Care - Ofelia Reyes RN - 07/28/2020 8:01 AM CDT Problem: Safety: Goal: Will remain free from falls Outcome: Progressing Goal: Will remain free from injury from falls Outcome: Progressing Goal: Will remain free from falls and injury in home environment Outcome: Progressing Goals: Clinical Goals for the Shift: VSS, neuro checks q4, control pain, promote rest and safety overnight Summary: pt will remain free from falls, will continue to monitor * Plan of Care - Rochelle Murdock RN - 07/27/2020 7:27 PM CDT Goals: Clinical Goals for the Shift: VSS, neuro checks q4, control pain, promote rest and safety overnight Summary: * Plan of Care - Cat Hopper RN - 07/27/2020 12:49 PM CDT Problem: Lack of Knowledge: Goal: Ability to state ways to decrease the risk of falls will improve Outcome: Progressing Problem: Safety: Goal: Will remain free from falls Outcome: Progressing Goal: Will remain free from injury from falls Outcome: Progressing Goal: Will remain free from falls and injury in home environment Outcome: Progressing Problem: Health Behavior: Goal: Understanding of discharge needs will improve Outcome: Progressing Goals: pt to remain free from injury, VSS, neuro check stable, pain control * Op Note - Leobardo Perez MD - 07/27/2020 8:36 AM CDT DATE OF OPERATION: 07/27/2020 PREOPERATIVE DIAGNOSIS 1. Normal Pressure Hydrocephalus POSTOPERATIVE DIAGNOSIS 1. Normal Pressure Hydrocephalus PROCEDURE PERFORMED Right parietal ventriculoperitoneal shunt with a Medtronic Strata valve set at 2.0 using the [employer] AxiEM system for neuronavigation. SURGEONS PRESENT 1. Leobardo Perez MD, attending physician. 2. Berry Stroud Md, PhD resident physician. ANESTHESIA General endotracheal anesthesia. INDICATIONS FOR PROCEDURE Olga Bansal is a 74 y.o. female with normal pressure hydrocephalus. The patient has been counseled on the need for a BLEACHING SUPERVISOR shunt for hydrocephalus. The patient has been counseled on the risks of bleeding, infection, brain hemorrhage, neurological injury, stroke, shunt misplacement and even . The patient and/or family understand the risks and have consented to proceed. DESCRIPTION OF PROCEDURE The patient was brought in the operating room and placed under general endotracheal anesthesia. Thepatient was positioned supine on the operating table and the head was placed on a horseshoe with the right head facing upwards. A curvilinear incision was planned over Keen's point in the right parietal region. The patient was registered on the GreenNoteEM system for neuronavigation and the planned incision was confirmed to be an appropriate entry point with the navigation system. The patient was then prepped and draped in the usual sterile fashion. An incision was opened over Keen's point inthe right parietal area with a 10 blade scalpel. Monopolar cautery was used to dissect down to the c alvarium. A subgaleal pocket was created underneath the curvilinear flap for the shunt valve. Next,a bur hole was drilled at Keen's point. The dura was cauterized. The dura was then opened in a cruciate fashion. The dural leaflets and peel surface of the brain were cauterized with bipolar cautery.At this point, the distal peritoneal tubing was passed from the cranial incision to a point on the right upper quadrant of the abdomen. A stab incision was made with a 15 blade scalpel to emerge the shunt passer from the right upper quadrant of the abdomen, and using the shunt passer the distal peritoneal tubing was passed from the cranial incision to the abdominal incision. This was connected tothe Medtronic Strata valve set at a setting of 2.[address] The slack was taken out of the distal peritoneal tubing and the valve was guided into the subgaleal pocket. Next, using the AxiEMsystem, a ventricular catheter was passed into the occipital horn of the right lateral ventricle under guidance with good CSF return. The catheter was cut to length and then connected to the valve and tied in place with a silk tie. There was excellent flow of CSF throughout the entire system. Next,the peritoneal cavity was entered with the Codman Certas trocar and a Valsalva maneuver, and the distal peritoneal tubing was threaded through the split trocar into the peritoneal cavity. Once the shunt was in place, the abdominal incision was closed with a subcuticular Monocryl stitch and Dermabond skin glue. The cranial incision was closed with 2-0 Vicryl sutures for the galea and a running chromic gut for the skin. The patient was undraped. The wounds were dressed. The patient was extubated in the operating room and then transferred to postanesthesia care for recovery. All sponge, needle, and instrument counts were correct at the end of the case. TOTAL FLUIDS FOR THE CASE Please see the anesthesia record. EBL: 25cc ATTENDING ATTESTATION I, Dr. Leobardo Perez, was present for the entire procedure. * Plan of Care - Rochelle Murdock RN - 07/26/2020 9:31 PM CDT Goals: Clinical Goals for the Shift: VSS, neuro checks q4, NPO at midnight for BLEACHING SUPERVISOR shunt tomorrow, CHG bathprior to surgery Summary: Patient taken down to surgery around 0530. Morning medicines given prior and BSSR given to nurse inmod B. * Plan of Care - Alesia Ness RN - 07/26/2020 11:52 AM CDT Problem: Lack of Knowledge: Goal: Ability to state ways to decrease the risk of falls will improve Outcome: Progressing Problem: Safety: Goal: Will remain free from falls Outcome: Progressing Goal: Will remain free from injury from falls Outcome: Progressing Goal: Will remain free from falls and injury in home environment Outcome: Progressing Goals: Clinical Goals for the Shift: VS stable,neuro checkQ4,Q1 lumbar drain,Rest well * Plan of Care - Cristina Khan PT - 07/26/2020 10:26 AM CDT Problem: Mobility Goal: STG - Patient will ambulate Description: 150 feet independent Outcome: Progressing Problem: PT Misc Goal: PT STG - Misc 1 Description: Patient will increased Mckeon balance score to 46/56. Outcome: Progressing * Plan of Care - Rochelle Murdock RN - 07/25/2020 7:54 PM CDT Goals: Clinical Goals for the Shift: VS stable,neuro checkQ4,Q1 lumbar drain,Rest well Summary: * Plan of Care - Laci Quintana RN - 07/25/2020 6:24 PM CDT Goals: Clinical Goals for the Shift: vss, neuro exams, Q1 lumbar drain, maintain safety and promote comfort. Summary: Problem: Lack of Knowledge: Goal: Ability to state ways to decrease the risk of falls will improve Outcome: Progressing Problem: Safety: Goal: Will remain free from falls Outcome: Progressing Goal: Will remain free from injury from falls Outcome: Progressing Goal: Will remain free from falls and injury in home environment Outcome: Progressing * Plan of Care - Cristina Khan, PT - 07/25/2020 2:34 PM CDT Problem: Mobility Goal: STG - Patient will ambulate Description: 150 feet independent Outcome: Progressing Problem: PT Misc Goal: PT STG - Misc 1 Description: Patient will increased Mckeon balance score to 46/56. Outcome: Progressing * Plan of Care - Pati Still RN - 07/25/2020 3:28 AM CDT Problem: Lack of Knowledge: Goal: Ability to state ways to decrease the risk of falls will improve Outcome: Progressing Problem: Safety: Goal: Will remain free from falls Outcome: Progressing Goal: Will remain free from injury from falls Outcome: Progressing Goal: Will remain free from falls and injury in home environment Outcome: Progressing Goals: Clinical Goals for the Shift: vss, neuro exams, Q1 lumbar drain, maintain safety and promote comfort. Summary: Pt remained safe and free of injury. Lumbar drain dressing was slightly leaking, neurosurgery loss prevention/safety district manager resident was called and came to access site and reinforce dressing. Pt later complained of leg pain, neurosurgery loss prevention/safety district manager notified again, PRN pain medication was ordered. Pt. Had no known neurological changes throughout shift. * Plan of Care - Cristina Khan, PT - 07/24/2020 5:09 PM CDT Problem: Mobility Goal: STG - Patient will ambulate Description: 150 feet independent Outcome: Progressing Problem: PT Misc Goal: PT STG - Misc 1 Description: Patient will increased Mckeon balance score to 46/56. Outcome: Progressing * Post-Procedure Note - Dash Hopper MD PhD - 07/24/2020 3:24 PM CDT Neuroradiology Brief Post Procedure Note Attending: Dr. Norwood Auto Roller: Dr. Dash Hopper Sedation/Anesthesia: Local Pre-procedure diagnosis: NPH Post-procedure diagnosis: Same Procedure Performed: Image-guided lumbar puncture for diagnostics Procedure Findings: Successful lumbar puncture at L4-L5. Complications: None Estimated Blood Loss: None Specimens: None Condition: Stable Full report to follow. * Post-Procedure Note - Dash Hopper MD PhD - 07/24/2020 2:58 PM CDT Neuro spine pre-procedure Note Chief complaint: 74 y.o. female; NPH Have you taken any blood thinners within the last 30 days? Include last dose taken. No PMH: Past Medical History: Diagnosis Date ??? Anemia ??? Arthritis ??? Blood clot associated with vein wall inflammation ??? Cataract ??? Depression ??? Diabetes mellitus (CMS/HCC) ??? History of transfusion ??? Hypertension ??? Osteopenia ??? Thalassemia minor ??? Thyroid disease hypothyroidism Allergies: Allergies Allergen Reactions ??? Celebrex [Celecoxib] Nausea only ??? Sulfa (Sulfonamide Antibiotics) Other (See comments) and Unknown Reaction: Meds: Current Facility-Administered Medications: ??? acetaminophen (TYLENOL) tablet 650 mg, 650 mg, oral, Q4H PRN, Francisca France NP, 650 mg at 07/24/20 1030 ??? albuterol 2.5 mg/0.5 mL nebulizer solution 2.5 mg, 2.5 mg, nebulization, Q4H PRN (RT), 2.5 mg at 07/24/20 1018 AND ipratropium (ATROVENT) 0.02 % nebulizer solution 0.5 mg, 0.5 mg, nebulization, Q4H PRN (RT), Nerissa Brown NP, 0.5 mg at 07/24/20 1018 ??? atorvastatin (LIPITOR) tablet 10 mg, 10 mg, oral, Daily, Francisca France NP, 10 mg at 07/23/202125 ??? carbidopa-levodopa (SINEMET) 25-100 mg per tablet 4 tablet, 4 tablet, oral, TID AC, Francisca France NP, 4 tablet at 07/24/20 1254 ??? docusate sodium (COLACE) capsule 100 mg, 100 mg, oral, BID, 100 mg at 07/24/20826 OR docusate (COLACE) 10 mg/mL oral liquid 100 mg, 100 mg, feeding tube, BID, Francisca France NP ??? gabapentin (NEURONTIN) tablet 600 mg, 600 mg, oral, BID, Francisca France NP, 600 mg at 07/24/20827 ??? hydroCHLOROthiazide (HYDRODIURIL) tablet 12.5 mg, 12.5 mg, oral, Daily, Francisca France NP, 12.5 mg at 07/24/20826 ??? levothyroxine (SYNTHROID) tablet 100 mcg, 100 mcg, oral, Daily, Francisca France NP, 100 mcg at 07/24/20 0545 ??? losartan (COZAAR) tablet 100 mg, 100 mg, oral, Daily, Francisca France NP, 100 mg at 07/24/20826 ??? metoprolol XL (TOPROL-XL) extended release tablet 50 mg, 50 mg, oral, Daily, Francisca France NP, 50 mg at 07/24/20827 ??? morphine ER (MS CONTIN) extended release tablet 15 mg, 15 mg, oral, BID, Joesph Melton MD PhD, 15 mg at 07/24/20826 ??? ondansetron (ZOFRAN) injection 4 mg, 4 mg, intravenous, Q6H PRN, Francisca France NP,4 mg at 07/24/20827 ??? sodium chloride 0.9% flush 0.5-20 mL, 0.5-20 mL, intra-catheter, Q8H NICKI, Francisca France NP, 10 mL at 07/24/20 1433 ??? sodium chloride 0.9% flush 0.5-20 mL, 0.5-20 mL, intra-catheter, PRN, Francisca France NP ??? venlafaxine XR (EFFEXOR-XR) extended release capsule 150 mg, 150 mg, oral, Daily with breakfast, Joesph Melton MD PhD, 150 mg at 07/24/20 0828 Prior to Admission medications Medication Sig Start Date End Date Taking? Authorizing Provider morphine ER (MS CONTIN) 15 mg 12 hr tablet Take 15 mg by mouth 2 (two) times a day Yes Historical Provider, traZODone (DESYREL) 100 mg tablet Take 50-100 mg by mouth nightly Yes Historical Provider, valsartan (DIOVAN) 160 mg tablet Take 160 mg by mouth daily Yes Historical Provider, atorvastatin (LIPITOR) 10 mg tablet Take 10 mg by mouth daily. Historical Provider, carbidopa-levodopa (SINEMET) 25-100 mg per tablet Take 4 tabs 3 times per day 05/09/20 Shruthi Rivero NP gabapentin (NEURONTIN) 300 mg capsule Take 600 mg by mouth 2 (two) times a day Historical Provider, hydroCHLOROthiazide (HYDRODIURIL) 12.5 mg tablet Take 12.5 mg by mouth daily 04/20/20 Historical Provider, levothyroxine (SYNTHROID, LEVOTHROID) 100 mcg tablet Take 100 mcg by mouth daily. 08/08/18 Historical Provider, metoprolol XL (TOPROL-XL) 50 mg 24 hr tablet Take 50 mg by mouth daily. Historical Provider, UNABLE TO FIND Medical Marijuana PRN rarely for pain at night Historical Provider, venlafaxine XR (EFFEXOR-XR) 37.5 mg 24 hr capsule Take 37.5 mg by mouth as directed 1 cap in the morning and 2 caps in the evening 12/15/19 Historical Provider, Pertinent physical exam: Neuro: Alert. Respiratory/chest: normal breathing effort. Skin: Warm. Vitals: Vitals: 07/24/20 1110 07/24/20 1115 07/24/20 1200 07/24/20 1300 BP: 141/72 144/75 151/64 139/66 BP Location: Left arm Left arm Left arm Left arm Patient Position: Lying Lying Lying;HOB 30 degrees Lying;HOB 30 degrees Pulse: 73 75 68 76 Resp: 08 06 19 Temp: TempSrc: SpO2: 97% 96% 95% 95% Weight: Height: Labs: CBC Lab Results Component Value Date WBC 5.8 07/23/2020 HGB 10.9 (L) 07/23/2020 LABPLAT 172 07/23/2020 Coagulation and platelet Lab Results Component Value Date PT 12.5 07/23/2020 INR 1.2 07/23/2020 APTT 32 07/23/2020 Imaging: Recent CT/MR images of lumbar spine reviewed. Assessment and Plan: Lumbar puncture for drain placement will be performed. Benefits, risks and alternatives of procedure have been discussed with the patient and/or their correspondence representative. All questions answered and they agree to proceed. * Plan of Care - David West RN - 07/24/2020 12:07 PM CDT CM placed a call to pt at [phone] for initial interview completion, there was no answer. CM will f/u later. Case Management to follow for planning and referrals as needed. * Plan of Care - Jacquelin Adkins RN - 07/24/2020 10:53 AM CDT Goals: Clinical Goals for the Shift: Patient to remain updated on allplans of care, goals, treatments and procedures throughout the day Summary: Patient updated on plan of care for the day. Patient able to verbalize understanding. Willcont to monitor * Plan of Care - Maria Teresa Boucher CRTT - 07/24/2020 10:25 AM CDT Patient with Anxiety, Depression, Hydrocephalus, Parkinsonism. She is resting in bed on 2L in no acute distress at this time. She ws given Albuterol and Atrovent, which she tolerated well. Will continue PRN as ordered. * Plan of Care - Pati Still, SHAYLA - 07/24/2020 2:54 AM CDT Problem: Lack of Knowledge: Goal: Ability to state ways to decrease the risk of falls will improve Outcome: Progressing Problem: Safety: Goal: Will remain free from falls Outcome: Progressing Goal: Will remain free from injury from falls Outcome: Progressing Goal: Will remain free from falls and injury in home environment Outcome: Progressing Goals: Clinical Goals for the Shift: vss, neuro exams, maintain safety and comfort Summary: Pt remained safe and free of injury. documented in this encounter Plan of Treatment Not on file documented as of this encounter Procedures Procedure Name Priority Date/Time Associated Diagnosis Comments XR VENTRICULOPERITONEAL SHUNT SERIES (ADULT) IP Routine 07/27/2020 11:48 AM CDT POCT GLUCOSE DEVICE Routine 07/27/2020 9 :43 AM CDT INSERTION / REVISION SHUNT - VENTRICULOPERITONEAL 07/27/2020 7:30 AM CDT NPH (normal pressure hydrocephalus) ([facility]) Special Needs stealth, no need for Gen surg assistance, planning for R parietal approach POCT GLUCOSE DEVICE Routine 07/27/2020 6 :[address] HEAD STEALTH WO CONTRAST IP Routine 07/26/2020 5:26 PM CDT PREPARE RBC Timed 07/26/2020 2:40 PM CDT ANTIBODY IDENTIFICATION STAT 07/26/20 20 12:29 PM CDT TYPE AND SCREEN STAT 07/26/2020 10:32 AM CDT COVID-19 CORONAVIRUS RNA Routine 020 2:45 PM CDT IR LUMBAR PUNCTURE, DIAGNOSTIC INCL FLUORO GUIDANCE IP Routine 07/24/2020 3:37 PM CDT XR CHEST 1 VIEW ED Urgent/IP Urgent 07/24/2020 10:57 AM CDT XR CHEST 1 VIEW IP Routine 07/23/2020 7:02 PM CDT ANTIBODY IDENTIFICATION STAT 07/23/20 20 6:01 PM CDT ECG 12-LEAD STAT 07/23/2020 5:12 PM CDT URINALYSIS AND REFLEX TO MICROSCOPIC AND CULTURE Routine 07/23/2020 5:12 PM CDT URINALYSIS, MICROSCOPIC ONLY Routine 07/23/2020 5:12 PM CDT POCT GLUCOSE DEVICE Routine 07/23/2020 4 :56 PM CDT POCT GLUCOSE DEVICE Routine 07/23/2020 4 :55 PM CDT ANTIBODY IDENTIFICATION STAT 07/23/20 20 3:58 PM CDT APTT STAT 07/23/2020 3:58 PM CDT PROTIME-INR STAT 07/23/2020 3:58 PM CDT CBC WITHOUT DIFFERENTIAL STAT 020 3:58 PM CDT TYPE AND SCREEN STAT 07/23/2020 3:58 PM CDT PHOSPHORUS STAT 07/23/2020 3:58 PM CDT MAGNESIUM STAT 07/23/2020 3:58 PM CDT HEMOGLOBIN A1C STAT 07/23/2020 3:58 PM CDT LIPID PANEL STAT 07/23/2020 3:58 PM CDT COMPREHENSIVE METABOLIC PANEL STAT 07/23/2020 3:58 PM CDT documented in this encounter Results * XR Ventriculoperitoneal Shunt Series (07/27/2020 11:48 AM CDT) Anatomical Region Laterality Modality Head and Neck N/A Computed Radiogr aphy 07/27/2020 12:2 9 PM CDT Impressions 07/27/2020 12:29 PM CDT Right parietal approach BLEACHING SUPERVISOR shunt with catheter coiling of the right lower quadrant with no definite kinks in the radiopaque portions of the catheter. ??However note suboptimal evaluation due to patient's large body habitus, as detailed above. Electronically signed by: Kisha Tse M.D. Narrative 07/27/2020 12:29 PM CDT EXAM: BLEACHING SUPERVISOR shunt series. REASON: Normal pressure hydrocephalus. PRIOR: No direct comparison. TECHNIQUE: AP and lateral view of the head, AP view of the chest and pelvis and AP and lateral view of the abdomen, 6 images total. FINDINGS: Right parietal approach BLEACHING SUPERVISOR shunt is identified extending down the right neck, right chest and terminating at the right lower quadrant. Multiple catheter coils in the right lower quadrant are seen but no definite kink in the radiopaque portions is present, which however cannot be adequately evaluated in the lateral view due to patient's large body habitus. ??If there is concern for kinking consider CT abdomen and pelvis. ??Lungs are clear. ??Nonobstructive bowel gas pattern noted although there is significant amount of stool retention identified. ??Cholecystectomy clips is seen. ??Multiple scattered phleboliths are noted throughout the abdomen and pelvis. Procedure Note Kisha Davenport MD - 07/27/2020 EXAM: BLEACHING SUPERVISOR shunt series. REASON: Normal pressure hydrocephalus. PRIOR: No direct comparison. TECHNIQUE: AP and lateral view of the head, AP view of the chest and pelvis and AP and lateral view of the abdomen, 6 images total. FINDINGS: Right parietal approach BLEACHING SUPERVISOR shunt is identified extending down the right neck, right chest and terminating at the right lower quadrant. Multiple catheter coils in the right lower quadrant are seen but no definite kink in the radiopaque portions is present, which however cannot be adequately evaluated in the lateral view due to patient's large body habitus. If there is concern for kinking consider CT abdomen and pelvis. Lungs are clear. Nonobstructive bowel gas pattern noted although there is significant amount of stool retention identified. Cholecystectomy clips is seen. Multiple scattered phleboliths are noted throughout the abdomen and pelvis. IMPRESSION: Right parietal approach BLEACHING SUPERVISOR shunt with catheter coiling of the right lower quadrant with no definite kinks in the radiopaque portions of the catheter. However note suboptimal evaluation due to patient's large body habitus, as detailed above. Electronically signed by: Kisha Tse M.D. Leobardo Perez MD IMG XR PROCEDURES Final Resul t * POCT glucose (07/27/2020 9:43 AM CDT) Glucose, POC 101 70 - 199 mg/dL [facility] Blood specimen (specimen) 07/27/2020 9:43 AM CDT 07/27/2020 9:43 AM CDT Leobardo Perez MD LAB POCT ORDERABLES - DEVICE Final Result Performing Organization Address City/[facility]/ZIP Co de Phone Number [facility] Department [place] [email or web address] [place] [address] * POCT glucose (07/27/2020 6:26 AM CDT) Glucose, POC 116 70 - 199 mg/dL [facility] Blood specimen (specimen) 07/27/2020 6:26 AM CDT 07/27/2020 6:26 AM CDT Leobardo Perez MD LAB POCT ORDERABLES - DEVICE Final Result Performing Organization Address City/[facility]/ZIP Co de Phone Number [facility] Department [place] [address] * CT Head Stealth WO Contrast (07/26/2020 5:26 PM CDT) Anatomical Region Laterality Modality Head and Neck N/A Computed Tomogra phy 07/26/2020 7:18 PM CDT Impressions 07/26/2020 8:50 PM CDT 1. ??Moderate lateral ventricular dilation similar in appearance to 10/13/2018 with overall appearance in favor of normal pressure hydrocephalus as detailed above. Dictated by: Nick Arce M.D. The radiology attending physician has personally reviewed this study, and had reviewed and/or edited this written report and agrees with it. Electronically signed by: Toña Valverde M.D. Narrative 07/26/2020 8:50 PM CDT EXAMINATION: CT head without contrast HISTORY: Normal pressure hydrocephalus. TECHNIQUE: Noncontrast CT of the brain was performed with images acquired from skull base to vertex. COMPARISON: Brain MRI 10/13/2018. FINDINGS: There is moderate dilation of the lateral ventricles bilaterally which appear out of proportion to the degree of sulcal widening. ??The degree of ventricular enlargement appears grossly similar to the comparison brain MRI. ??The callosal angle is increased in measure 75 degrees. There is no acute intracranial hemorrhage. No mass effect or midline shift is present. The figueroa-white matter differentiation is normal. Bilateral lens replacement surgery noted. The visualized portions of the mastoids are normal. The visualized portions of the paranasal sinuses are normal. No fractures are identified. ??Incomplete posterior arch of C1. Procedure Note Toña Valverde MD - 07/26/2020 EXAMINATION: CT head without contrast HISTORY: Normal pressure hydrocephalus. TECHNIQUE: Noncontrast CT of the brain was performed with images acquired from skull base to vertex. COMPARISON: Brain MRI 10/13/2018. FINDINGS: There is moderate dilation of the lateral ventricles bilaterally which appear out of proportion to the degree of sulcal widening. The degree of ventricular enlargement appears grossly similar to the comparison brain MRI. The callosal angle is increased in measure 75 degrees. There is no acute intracranial hemorrhage. No mass effect or midline shift is present. The figueroa-white matter differentiation is normal. Bilateral lens replacement surgery noted. The visualized portions of the mastoids are normal. The visualized portions of the paranasal sinuses are normal. No fractures are identified. Incomplete posterior arch of C1. IMPRESSION: 1. Moderate lateral ventricular dilation similar in appearance to 10/13/2018 with overall appearance in favor of normal pressure hydrocephalus as detailed above. Dictated by: Nick Arce M.D. The radiology attending physician has personally reviewed this study, and had reviewed and/or edited this written report and agrees with it. Electronically signed by: Toña Valverde M.D. Leobardo Perez MD IMG CT PROCEDURES Final Resul t * Prepare RBC: 2 Units (07/26/2020 2:40 PM CDT) Product code [id number] [facility] Unit Number [id number] 2-9 [facility] Product Blood Type OPOS [facility] BJ Dispense Status RETURNED [facility] Product code [id number] [facility] Unit Number [id number] 2-9 [facility] Product Blood Type OPOS [facility] Disp[facility] Status RETURNED [facility] Blood specimen (specimen) 07/26/2020 2:40 PM CDT 07/26/2020 2:39 PM CDT Narrative [facility] - 07/30/2020 12:40 AM CDT Specify Procedure:->BLEACHING SUPERVISOR shunt placement Are special requirements needed? (all products are leukoreduced)->Yes Date required:-[id number] Reasons:-Hold for procedure (specify procedure)} Special Req 2:-Per IPAP note: history of positive indirect Yaneth and is having a surgery where blood antibodies are pertinent. The antibody type is pending verification (prior history of Anti-E, Anti little c, and AUS). LRRBC # of [id number] Leobardo Perez MD BLOOD BANK PRODUCT ORDERABLES Final Result [facility] Department [place] [address] * Antibody identification (07/26/2020 12:29 PM CDT) Antibody ID 2 Anti Little c [facility] Comment:Previous AUS not det ected Antibody ID 1 Anti-E [facility] Blood specimen (specimen) 07/26/2020 12:29 PM CDT 07/26/2020 12:29 PM CDT Riya Majano NP LAB BLOOD BANK TEST ORDERA BLES Final Result Performing Organization Address City/[facility]/ZIP Co de Phone Number [facility] [place] [address] * (ABNORMAL) Type and screen (07/26/2020 10:32 AM CDT) ABO Rh A Positive [facility] Yaneth, indirect Positive(A) [facility] Blood specimen (specimen) 07/26/2020 10:32 AM CDT 07/26/2020 11:27 AM CDT Narrative [facility] - 07/26/2020 12:29 PM CDT Has the patient had Daratumumab or Isatuximab in the past 6 months?->Unknown Riya Majano NP LAB BLOOD BANK TEST ORDERA BLES Final Result Performing Organization Address [facility] de Phone Number [facility] [place] [address] * COVID-19 Coronavirus RNA Nasopharyngeal (07/25/2020 2:45 PM CDT) Pathologist [facility] COVID-19 RNA Not Detected [facility] Comment: Interpretive Data Testing performed at [facility]. The 2019-Novel Coronavirus Assay (COVID-19) Real Time RT-PCR assay is for in vitro diagnostic use under FDA emergency use authorization only. A negative RT-PCR result does not preclude infection with COVID-19 and should not be used as the sole basis for treatment or other patient management decisions. Additional sample types have been validated according to CLIA regulations. ?? Current Interpretive Data was last revised on 2020. First COVID-19 test? Unknown [facility] Employeed in healthcare? No [facility] status? No [facility] Group care resident? No [facility] Hospitalized? Yes [facility] Is patient in ICU? No AVINASH PAPPAS Nasopharyngeal 07/25/2020 2: 45 PM CDT 07/25/2020 5:16 PM CDT Narrative AVINASH SHRESTHA - 07/25/2020 10:19 PM CDT Is the patient experiencing any symptoms consistent with COVID (eg. Fever, cough, shortness of breath)?->No What is the reason for testing?->Likely to be admitted to semi-private room us Leboardo Perez MD LAB MICROBIOLOGY - GENERAL OR DERABLES Final Result [facility] Department [place] [address] * IR Lumbar Puncture, Diagnostic incl Fluoro Guidance (07/24/2020 3:37 PM CDT) Anatomical Region Laterality Modality Spine N/A Radio Fluoroscop y 07/24/2020 3:37 PM CDT Impressions 07/24/2020 4:05 PM CDT Successful lumbar puncture under fluoroscopic guidance for lumbar drain placement. Dictated by: Dash Hopper M.D. The radiology attending physician has personally reviewed this study, and had reviewed and/or edited this written report and agrees with it. Electronically signed by: Kisha Tse M.D. Narrative 07/24/2020 4:05 PM CDT EXAMINATION: Diagnostic lumbar puncture (LP) under fluoroscopic guidance for lumbar drain placement. HISTORY: 74-year-old woman with normal pressure hydrocephalus. Lumbar drain trial. TECHNIQUE: The risks and benefits of the lumbar puncture including, but not limited to infection, bleeding, spinal headache, cerebrospinal fluid (CSF) leak requiring blood patch procedure, and irritation or damage to nerves causing pain or permanent injury were discussed with the patient. The patient was given the opportunity to ask questions. The patient acknowledged understanding, gave verbal and written consent, and wished to proceed. A time-out was performed prior to the procedure. Attending physician: Kisha Tse M.D. was present for the entire procedure. The L4-L5 level was localized with fluoroscopy. The skin overlying this level was then sterilely prepped, draped, and infiltrated with 1% lidocaine for local anesthesia. Under intermittent fluoroscopic guidance, a 14 gauge 6 inch Tuohy needle was inserted into the thecal sac at this level. Clear CSF was identified. ??The procedure was then handed over to the neurosurgery team for drain placement. The patient tolerated the procedure well. The patient was then sent back to inpatient unit for further observation and 1 hour of bedrest. OPENING PRESSURE: Not performed. Procedure Note Kisha Davenport MD - 07/24/2020 EXAMINATION: Diagnostic lumbar puncture (LP) under fluoroscopic guidance for lumbar drain placement. HISTORY: 74-year-old woman with normal pressure hydrocephalus. Lumbar drain trial. TECHNIQUE: The risks and benefits of the lumbar puncture including, but not limited to infection, bleeding, spinal headache, cerebrospinal fluid (CSF) leak requiring blood patch procedure, and irritation or damage to nerves causing pain or permanent injury were discussed with the patient. The patient was given the opportunity to ask questions. The patient acknowledged understanding, gave verbal and written consent, and wished to proceed. A time-out was performed prior to the procedure. Attending physician: Kisha Tse M.D. was present for the entire procedure. The L4-L5 level was localized with fluoroscopy. The skin overlying this level was then sterilely prepped, draped, and infiltrated with 1% lidocaine for local anesthesia. Under intermittent fluoroscopic guidance, a 14 gauge 6 inch Tuohy needle was inserted into the thecal sac at this level. Clear CSF was identified. The procedure was then handed over to the neurosurgery team for drain placement. The patient tolerated the procedure well. The patient was then sent back to inpatient unit for further observation and 1 hour of bedrest. OPENING PRESSURE: Not performed. IMPRESSION: Successful lumbar puncture under fluoroscopic guidance for lumbar drain placement. Dictated by: Dash Hopper M.D. The radiology attending physician has personally reviewed this study, and had reviewed and/or edited this written report and agrees with it. Electronically signed by: Kisha Tse M.D. Riya Majano NP IMG FLUOROSCOPY PROCEDURES Final Result * XR Chest 1 View (07/24/2020 10:57 AM CDT) Anatomical Region Laterality Modality Body, Chest N/A Computed Radiogr aphy 07/24/2020 11:2 3 AM CDT Impressions 07/24/2020 11:23 AM CDT The current study is compared with the prior radiograph dated 07/15/2020. ??The right hemidiaphragm remains slightly elevated. Redemonstrated is minimal bronchiectasis and mild bibasilar opacities which may represent atelectasis or chronic aspiration. ??The heart size is the upper limits of normal, unchanged. ??There is no pneumothorax. ??Overall, there is no significant change compared to prior examination. Dictated by: Ha Newman M.D. The radiology attending physician has personally reviewed this study, and had reviewed and/or edited this written report and agrees with it. Electronically signed by: Aretha Noriega M.D. Narrative 07/24/2020 11:23 AM CDT EXAMINATION: 1 view chest radiograph Procedure Note Aretha Noriega MD - 07/24/2020 EXAMINATION: 1 view chest radiograph IMPRESSION: The current study is compared with the prior radiograph dated 07/15/2020. The right hemidiaphragm remains slightly elevated. Redemonstrated is minimal bronchiectasis and mild bibasilar opacities which may represent atelectasis or chronic aspiration. The heart size is the upper limits of normal, unchanged. There is no pneumothorax. Overall, there is no significant change compared to prior examination. Dictated by: Ha Newman M.D. The radiology attending physician has personally reviewed this study, and had reviewed and/or edited this written report and agrees with it. Electronically signed by: Aretha Noriega M.D. Nerissa Brown NP IMG XR PROCEDURES Final Result * XR chest 1 view (Portable) (07/23/2020 7:02 PM CDT) Anatomical Region Laterality Modality Body, Chest N/A Computed Radiogr aphy 07/24/2020 8:52 AM CDT Impressions 07/24/2020 9:26 AM CDT No prior study is available for comparison. ??The right hemidiaphragm is slightly elevated. ??There is minimal bronchiectasis and mild bibasilar opacities which may represent atelectasis or chronic aspiration. ??The heart size is at the upper limits of normal. There is no pleural effusion. ??There is no pneumothorax. Dictated by: Ha Newman M.D. The radiology attending physician has personally reviewed this study, and had reviewed and/or edited this written report and agrees with it. Electronically signed by: Aretha Noriega M.D. Narrative 07/24/2020 9:26 AM CDT EXAMINATION: 1 view chest radiograph Procedure Note Aretha Noriega MD - 07/24/2020 EXAMINATION: 1 view chest radiograph IMPRESSION: No prior study is available for comparison. The right hemidiaphragm is slightly elevated. There is minimal bronchiectasis and mild bibasilar opacities which may represent atelectasis or chronic aspiration. The heart size is at the upper limits of normal. There is no pleural effusion. There is no pneumothorax. Dictated by: Ha Newman M.D. The radiology attending physician has personally reviewed this study, and had reviewed and/or edited this written report and agrees with it. Electronically signed by: Aretha Noriega M.D. Francisca France NP IMG XR PROCEDURES F inal Result * Antibody identification (07/23/2020 6:01 PM CDT) Antibody ID 1 Anti-E [facility] Antibody ID 2 Anti Little c [facility] Blood specimen (specimen) 07/23/2020 6:01 PM CDT 07/23/2020 6:01 PM CDT Francisca France NP LAB BLOOD BANK TEST ORDERABLES Final Result [facility] Department [place] [address] * ECG 12 lead (07/23/2020 5:12 PM CDT) Pathologist [facility] Ventricular Rate EKG/Min 70 BPM [facility] Atrial Rate 70 BPM [facility] MT-Interval (MSEC) 150 ms [facility] QRS-Interval (MSEC) 92 ms [facility] QT-Interval (MSEC) 396 ms [facility] QTc 427 ms [facility] P [place] 34 degrees [facility] R [place] -5 degrees [facility] T [place] -7 degrees [facility] Diagnosis Baseline wander Normal sinus rhythm Moderate voltage criteria for LVH, may be normal variant Borderline ECG No previous ECGs available Confirmed by ANN HASSAN M.D ([id number]) on 07/24/2020 9:17:33 PM [facility] 07/23/2020 5:12 PM CDT 07/24/2020 9:17 PM CDT Francisca France [employer] SAL[employer] SPECIALIST ECG ORDERABLES Fin al Result [facility] * (ABNORMAL) Urinalysis, microscopic only (07/23/2020 5:12 PM CDT) [facility] WBC, ur 0-5 0 - 5 /HPF [facility] RBC, ur 3-5(A) 0 - 2 /HPF [facility] Epithelial cells, squamous, ur 1-5 0 - 5 /HPF [facility] Bacteria, ur Trace(A) [facility] Culture Reflex Comment Reflex conditions for urine culture (WBC >10) not met. [facility] Urine 07/23/2020 5:12 PM CDT 07/23/2020 5:34 PM CDT Francisca France NP LAB URINE ORDERABLE S Final Result [facility] Department [place] [address] * (ABNORMAL) Urinalysis reflex to microscopic and culture Urine (07/23/2020 5:12 PM CDT) Color, ur Yellow Yellow [facility] Clarity, ur Clear Clear [facility] Specific gravity, ur 1.012 1.010 - 1.025 [facility] pH, urine 6 [facility] Protein, ur ql Negative Negative [facility] Glucose, ur ql Negative Negative [facility] Ketones, ur Negative Negative [facility] Bilirubin, ur Negative Negative [facility] Blood, ur Negative Negative [facility] Urobilinogen, ur <2.0 <2.0 mg/dL [facility] Nitrite, ur Negative Negative [facility] Leukocyte esterase, ur 2+(A) Negative [facility] UA reflex comment Reflex to microscopic UA will be performed. [facility] Urine 07/23/2020 5:12 PM CDT 07/23/2020 5:34 PM CDT Narrative [facility] - 07/23/2020 5:46 PM CDT ?? Urine pH is affected by diet, medications, systemic acid-base disturbances, and renal tubular function. ??pH may affect urinary stone formation. ??For example, urine pH below 6.0 may help reduce the tendency for calcium phosphate stones and pH greater than 6.0 may reduce the tendency for uric acid stone formation. Source: [facility] [email or web address]. Last revised 11-05-2017 us Francisca France NP LAB MICROBIOLOGY - GENERAL ORDERABLES Final Result Performing Organization Address City/[facility]/ZIP Co de Phone Number [facility] [place] [address] * POCT glucose (07/23/2020 4:56 PM CDT) Glucose, POC 169 70 - 199 mg/dL [facility] Blood specimen (specimen) 07/23/2020 4:56 PM CDT 07/23/2020 4:56 PM CDT us Leobardo Perez MD LAB POCT ORDERABLES - DEVICE Final Result Performing Organization Address City/[facility]/ZIP Co de Phone Number [facility] Department [place] [address] * POCT glucose (07/23/2020 4:55 PM CDT) [facility] Glucose, POC 193 70 - 199 mg/dL [facility] Blood specimen (specimen) 07/23/2020 4:55 PM CDT 07/23/2020 4:55 PM CDT Leobardo Perez MD LAB POCT ORDERABLES - DEVICE Final Result Performing Organization Address City/[facility] [place] [address] * Antibody identification (07/23/2020 3:58 PM CDT) [facility] Antibody ID 3 Anti Little c [facility] Antibody ID 2 Anti-E [facility] Antibody ID 1 Antibody of Undetermined Specificity [facility] Blood specimen (specimen) 07/23/2020 3:58 PM CDT 07/23/2020 4:19 PM CDT Leobardo Perez MD LAB BLOOD BANK TEST ORDERABLE S Final Result Performing Organization Address [facility] [place] [address] * (ABNORMAL) Hemoglobin A1c (07/23/2020 3:58 PM CDT) [facility] Hgb A1C 5.8(H) 4.0 - 5.6 % [facility] Estimated Average Glucose 120 mg/dL [facility] Comment: The ADA recommends reporting an estimated Average Glucose (eAG) with all Hemoglobin A1c results using the equation derived from a study of 507 normal and diabetic adults. ??Minority populations were underrepresented and children were not included. ?? (Diabetes Care 31:5116-5399, 2008). ??The eAG is not equivalent to a fasting glucose. Blood specimen (specimen) 07/23/2020 3:58 PM CDT 07/23/2020 4:24 PM CDT us Leobardo Perez MD LAB BLOOD ORDERABLES Final Re sult [facility] Department [place] [address] * (ABNORMAL) Lipid panel (07/23/2020 3:58 PM CDT) Cholesterol 150 30 - 199 mg/dL [facility] Comment: Interpretive Data Ages < or = 19 years ??Acceptable: ? <170 mg/dL ??Borderline high: ??170-199 mg/dL ??High: ? >or= 200 mg/dL Ages > or = 20 years ??Desirable: ?<200 mg/dL ??Borderline high: ??200-239 mg/dL ??High: ? >or= 240 mg/dL Literature References: 1. Expert Panel on Integrated Guidelines for Cardiovascular Health and Risk Reduction in Children and Adolescents. Pediatrics 2011;128:S213 2. NCEP Expert Panel. Circulation 2004;110:227 Current Interpretive Data was last revised on 2018. Triglycerides 258(H) <=149 mg/dL [facility] Comment: Interpretive Data Ages < or = 9 years ??Acceptable: ? <75 mg/dL ??Borderline high: ??75-99 mg/dL ??High: ? >or= 100 mg/dL Ages 10 to 20 years ??Acceptable: ? <90 mg/dL ??Borderline high: ??90-129 mg/dL ??High: ? >or= 130 mg/dL Ages > or = 20 years ??Desirable: ?<150 mg/dL ??Borderline high: ??150-199 mg/dL ??High: ? 200-499 mg/dL ?Very high: ?? >or= 499 mg/dL Literature References: 1. Expert Panel on Integrated Guidelines for Cardiovascular Health and Risk Reduction in Children and Adolescents. Pediatrics 2011;128:S213 2. NCEP Expert Panel. Circulation 2004;110:227 Current Interpretive Data was last revised on 2018. HDL 38(L) >=40 mg/dL [facility] Comment: Interpretive Data Ages < or = 19 years ??Acceptable: ? >45 mg/dL ??Borderline low: ?? 40-45 mg/dL ??Low: ? <40 mg/dL Ages > or = 20 years ??Desirable: ?>or= 60 mg/dL ??Low: ? <40 mg/dL Literature References: 1. Expert Panel on Integrated Guidelines for Cardiovascular Health and Risk Reduction in Children and Adolescents. Pediatrics 2011;128:S213 2. NCEP Expert Panel. Circulation 2004;110:227 Current Interpretive Data was last revised on 2018. LDL, calculated 60 <=129 mg/dL [facility] Comment: Interpretive Data Ages < or = 19 years ??Acceptable: ? <110 mg/dL ??Borderline high: ??110-129 mg/dL ??High: ?>or= 130 mg/dL Ages > or = 20 years ??Optimal: ? <100 mg/dL ??Near optimal: ?100-129 mg/dL ??Borderline high: ?? 130-159 mg/dL ??High: ?>160 mg/dL Literature References: 1. Expert Panel on Integrated Guidelines for Cardiovascular Health and Risk Reduction in Children and Adolescents. Pediatrics 2011;128:S213 2. NCEP Expert Panel. Circulation 2004;110:227 Current Interpretive Data was last revised on 2018. Non-HDL Cholesterol 112 mg/dL [facility] Comment: Interpretive Data Ages < or = 19 years ??Acceptable: ?<120 mg/dL ??Borderline high: ??120-144 mg/dL ??High: ?>145 mg/dL Ages > or = 20 years ??When triglycerides are >200 mg/dL, Non-HDL cholesterol is a secondary target of ? therapy with treatment goals that are 30 mg/dL greater than the LDL cholesterol target. ? Literature References: 1. Expert Panel on Integrated Guidelines for Cardiovascular Health and Risk Reduction in Children and Adolescents. Pediatrics 2011;128:S213 2. NCEP Expert Panel. Circulation 2004;110:227 Current Interpretive Data was last revised on 2018. Chol/HDL ratio 4 [facility] Blood specimen (specimen) 07/23/2020 3:58 PM CDT 07/23/2020 4:20 PM CDT Leobardo Perez MD LAB BLOOD ORDERABLES Final Re sult Performing Organization Address [facility] de Phone Number [facility] [place] [email or web address] [place] [address] * Protime-INR (07/23/2020 3:58 PM CDT) PT 12.5 8.6 - 13.0 sec [facility] INR 1.2 0.8 - 1.2 [facility] Comment: Interpretive data Oral anticoagulant therapeutic ranges: Venous thromboembolism prophylaxis or treatment: 2.0-3.0 CARDIOLOGY Standard range: 2.0-3.0 High-intensity range: 2.5-3.5 Refer to indication-specific guidelines for appropriate target ranges for prosthetic heart valve replacement. Current interpretive data was last revised on 2019. Blood specimen (specimen) 07/23/2020 3:58 PM CDT 07/23/2020 4:29 PM CDT Francisca France NP LAB BLOOD ORDERABLE S Final Result Performing Organization Address [facility] de Phone Number [facility] [email or web address] [place] [address] * aPTT (07/23/2020 3:58 PM CDT) aPTT 32 25 - 37 sec [facility] Comment: Interpretive data Heparin therapeutic range: 60-90 seconds Range based on correlation with therapeutic heparin activity range of 0.3-0.7 units/ml. Current interpretive data was last revised on 2019. Blood specimen (specimen) 07/23/2020 3:58 PM CDT 07/23/2020 4:29 PM CDT Francisca France [employer] LAB BLOOD ORDERABLE S Final Result Performing Organization Address [facility] Co de Phone Number [facility] [email or web address] [place] [address] * (ABNORMAL) Type and screen (07/23/2020 3:58 PM CDT) [facility] Yaneth, indirect Positive(A) [facility] ABO Rh A Positive [facility] Blood specimen (specimen) 07/23/2020 3:58 PM CDT 07/23/2020 4:19 PM CDT Narrative [facility] - 07/23/2020 6:01 PM CDT Has the patient had Daratumumab or Isatuximab in the past 6 months?->Unknown Francisca France [employer] SAL[employer]IST LAB BLOOD BANK TEST ORDERABLES Final Result Performing Organization Address [facility] de Phone Number [facility] [email or web address] [place] [address] * (ABNORMAL) CBC without differential (07/23/2020 3:58 PM CDT) [facility] WBC 5.8 3.8 - 9.9 K/cumm [facility] Hgb 10.9(L) 11.9 - 15.5 g/dL [facility] Hct 35.7 35.6 - 45.5 % [facility] Plt 172 150 - 400 K/cumm [facility] MPV 10.0 9.1 - 12.3 fL [facility] RBC 5.63(H) 3.90 - 5.20 M/cumm [facility] MCV 63.4(L) 81.3 - 96.4 fL [facility] MCH 19.4(L) 27.1 - 33.3 pg [facility] MCHC 30.5(L) 32.3 - 35.7 g/dL [facility] RDW CV 15.3(H) 11.1 - 14.9 % [facility] RDW SD 33.2(L) 35.7 - 48.1 fL [facility] NRBC abs 0.00 0.00 - 0.01 K/cumm [facility] Blood specimen (specimen) 07/23/2020 3:58 PM CDT 07/23/2020 4:19 PM CDT Francisca France [employer] LAB BLOOD ORDERABLE S Final Result Performing Organization Address City/[facility]/ZIP Co de Phone Number [facility] [email or web address] [place] [address] * Phosphorus (07/23/2020 3:58 PM CDT) Phosphorus, pl 3.3 2.3 - 4.5 mg/dL [facility] Blood specimen (specimen) 07/23/2020 3:58 PM CDT 07/23/2020 4:20 PM CDT Francisca France [employer] LAB BLOOD ORDERABLE S Final Result [facility] [email or web address] [place] [address] * Magnesium (07/23/2020 3:58 PM CDT) Magnesium 1.9 1.4 - 2.5 mg/dL [facility] Blood specimen (specimen) 07/23/2020 3:58 PM CDT 07/23/2020 4:20 PM CDT Francisca France [employer] LAB BLOOD ORDERABLE S Final Result [facility] [place] [address] * Comprehensive metabolic panel (07/23/2020 3:58 PM CDT) Sodium 139 135 - 145 mmol/L [facility] Potassium, pl 4.1 3.3 - 4.9 mmol/L [facility] Chloride 102 97 - 110 mmol/L [facility] CO2 31 22 - 32 mmol/L [facility] Anion gap 6 2 - 15 mmol/L [facility] 19 8 - 25 mg/dL [facility] Creatinine 0.83 0.60 - 1.10 mg/dL [facility] Glucose 149 70 - 199 mg/dL [facility] Comment: Interpretive Data Fasting glucose >/= 126 mg/dl is diagnostic for diabetes. ?? Fasting is defined as no caloric intake for at least 8 hours. Fasting glucose between 100 mg/dl to 125 mg/dl is diagnostic of prediabetes. In a patient with classic symptoms of hyperglycemia or hyperglycemic crisis, a random glucose >/= 200 mg/dl is diagnostic for diabetes. In the absence of unequivocal hyperglycemia, results should be confirmed by repeat testing. The classification and Diagnosis of Diabetes Diabetes Care 2017;40 (Suppl. 1):S11. Current interpretive data was last revised 2017. Calcium 9.0 8.5 - 10.3 mg/dL [facility] Bilirubin, total 0.4 0.1 - 1.2 mg/dL [facility] Protein, pl 7.0 6.5 - 8.5 g/dL [facility] Albumin 4.1 3.5 - 5.0 g/dL [facility] Alk phos 84 40 - 130 Units/L [facility] ALT 9 7 - 45 Units/L [facility] AST 26 10 - 45 Units/L [facility] Blood specimen (specimen) 07/23/2020 3:58 PM CDT 07/23/2020 4:20 PM CDT Francisca France [employer] LAB BLOOD ORDERABLE S Final Result [facility] [place] [address] documented in this encounter Visit Diagnoses Diagnosis NPH (normal pressure hydrocephalus) (HCC)- Primary Idiopathic normal pressure hydrocephalus (INPH) NPH (normal pressure hydrocephalus) (HCC) Idiopathic normal pressure hydrocephalus (INPH) documented in this encounter Admitting Diagnoses Diagnosis NPH (normal pressure hydrocephalus) (HCC) Idiopathic normal pressure hydrocephalus (INPH) documented in this encounter Administered Medications Inactive Administered Medications - up to 3 most recent administrations Medication Order MAR Action Action Date Dose Rate Site acetaminophen (TYLENOL) tablet 650 mg 650 mg, oral, Every 4 hours PRN, 1st line for pain, Starting on Thu07/23/20 at 1524, Indications: PainIndications:Pain Given 07/28/2020 12:24 PM CDT 650 mg Given 07/28/2020 5:44 AM CDT 650 mg Given 07/28/2020 12:11 AM CDT 650 mg albuterol 2.5 mg/0.5 mL nebulizer solution 2.5 mg 2.5 mg, nebulization, Every 4 hours PRN (respiratory medicine physician), wheezing, shortness of breath, Starting on Thu07/24/20 at 1008 Given 07/24/2020 10:18 AM CDT 2.5 mg atorvastatin (LIPITOR) tablet 10 mg 10 mg, oral, Daily, First dose on Thu07/23/20 at 2100 Given 07/27/2020 8:08 PM CDT 10 mg Given 07/26/2020 8:07 PM CDT 10 mg Given 07/25/2020 8:33 PM CDT 10 mg benzocaine-menthoL (CHLORASEPTIC) lozenge 1 lozenge 1 lozenge, mouth/throat, Every 2 hours PRN, sore throat, Starting on Thu07/27/20 at 1636 Given 07/28/2020 12:18 PM CDT 1 lozenge Given 07/27/2020 6:51 PM CDT 1 lozenge bisacodyL (DULCOLAX) suppository 10 mg 10 mg, rectal, Daily PRN, constipation, If no results 24 hours after polyethylene glycol (MIRALAX). May give bisacodyl tablet if tolerating PO., Starting on Thu07/27/20 at 1147, Indications: constipationIndications:constipation Given 07/28/2020 10:52 AM CDT 10 mg carbidopa-levodopa (SINEMET) 25-100 mg per tablet 4 tablet 4 tablet, oral, 3 times daily before meals, First dose on Thu07/23/20 at 1730, Indications: ParkinsonismIndications:Parkinsonism Given 07/28/2020 10:54 AM CDT 4 tabl ets Given 07/28/2020 7:52 AM CDT 4 tablets Given 07/27/2020 5:44 PM CDT 4 tablets ceFAZolin (ANCEF) 2,000 mg/20 mL in sterile water (premix) 2,000 mg 2,000 mg, intravenous, at 400 mL/hr, Administer over 3 Minutes, Once, On Thu07/24/20 at 0915, For 1 dose, Hold to be given immediately prior to lumbar drain placement, Indications: Prophylaxis, SurgicalIndications:Prophylaxis, Surgical New Bag 07/24/2020 9:56 AM CDT 2,000 mg 400 mL/hr ceFAZolin (ANCEF) 2,000 mg/20 mL in sterile water (premix) 2,000 mg 2,000 mg, intravenous, at 400 mL/hr, Administer over 3 Minutes, Once, On Thu07/24/20 at 1345, For 1 dose, Hold to be given immediately prior to being called down for IR lumbar drain, Indications: Prophylaxis, SurgicalIndications:Prophylaxis, Surgical New Bag 07/24/2020 2:33 PM CDT 2,000 mg 400 mL/hr ceFAZolin (ANCEF) 2,000 mg/20 mL in sterile water (premix) 2,000 mg 2,000 mg, intravenous, at 400 mL/hr, Administer over 3 Minutes, Every 8 hours, First dose on Thu07/27/20 at 1230, For 2 doses, Starting 8 hours after last allison-operative dose., Indications: Prophylaxis, SurgicalIndications:Prophylaxis, Surgical New Bag 07/27/2020 8:10 PM CDT 2,000 mg 400 mL/hr New Bag 07/27/2020 2:15 PM CDT 2,000 mg 400 mL/hr docusate (COLACE) 10 mg/mL oral liquid 100 mg 100 mg, feeding tube, 2 times daily, First dose on Thu07/23/20 at 2100, If able to receive medications per tube. Hold for diarrhea., Indications: constipation, Stool SoftenerIndications:constipation,Stool Softener docusate sodium (COLACE) capsule 100 mg 100 mg, oral, 2 times daily, First dose on Thu07/23/20 at 2100, If able to swallow capsules. Hold for diarrhea., Indications: constipation, Stool SoftenerIndications:constipation,Stool Softener Given 07/28/2020 7:53 AM CDT 100 mg Given 07/27/2020 8:08 PM CDT 100 mg Given 07/26/2020 8:07 PM CDT 100 mg famotidine (PEPCID) tablet 20 mg 20 mg, oral, 2 times daily, First dose on Thu07/24/20 at 2100 Given 07/28/2020 7:52 AM CDT 20 mg Given 07/27/2020 8:08 PM CDT 20 mg Given 07/26/2020 8:07 PM CDT 20 mg gabapentin (NEURONTIN) tablet 600 mg 600 mg, oral, 2 times daily, First dose on Thu07/23/20 at 2100 Given 07/28/2020 7:52 AM CDT 600 mg Given 07/27/2020 8:08 PM CDT 600 mg Given 07/27/2020 5:11 AM CDT 600 mg heparin 5,000 unit/mL injection 5,000 Units 5,000 Units, subcutaneous, Every 12 hours scheduled, First dose on Thu07/24/20 at 2100, Indications: VTE Prophylaxis, On hold since Thu07/26/2020 at 1434 until manually unheldIndications:VTE Prophylaxis Given 07/26/2020 9:11 AM CDT 5,000 Units Right Upper Abdomen Given 07/25/2020 8:34 PM CDT 5,000 Units L eft Lower Abdomen Given 07/25/2020 8:40 AM CDT 5,000 Units L eft Lower Abdomen hydroCHLOROthiazide (HYDRODIURIL) tablet 12.5 mg 12.5 mg, oral, Daily, First dose on Thu07/23/20 at 1630 Given 07/28/2020 7:52 AM CDT 12.5 mg Given 07/27/2020 5:11 AM CDT 12.5 mg Given 07/26/2020 9:10 AM CDT 12.5 mg HYDROmorphone (DILAUDID) injection 0.2 mg 0.2 mg, intravenous, Administer over 2 Minutes, Once, On Thu07/24/20 at 0930, For 1 dose, order desk caller when getting lumbar drain Given 07/24/2020 9:56 AM CDT 0. 2 mg ipratropium (ATROVENT) 0.02 % nebulizer solution 0.5 mg 0.5 mg, nebulization, Every 4 hours PRN (respiratory medicine physician), wheezing, shortness of breath, Starting on Thu07/24/20 at 1008 Given 07/24/2020 10:18 AM CDT 0.5 mg Lactated Ringer's (LR) infusion 30 mL/hr, intravenous, Continuous, Starting on Thu07/27/20 at 0615, Pre-Op New Bag 07/27/2020 7:50 AM CDT New Bag 07/27/2020 7:27 AM CDT 30 mL/hr 30 mL/hr lactulose 0.67 gram/mL oral solution 20 g 20 g, feeding tube, Once, On Thu07/28/20 at 0845, For 1 dose Given 07/28/2020 8:58 AM CDT 20 g levothyroxine (SYNTHROID) tablet 100 mcg 100 mcg, oral, Daily, First dose on Thu07/24/20 at 0600, Administer on an empty stomach, preferably 30 minutes before breakfast. Take 4 hours apart from antacids, iron and calcium products. Given 07/28/2020 5:45 AM CDT 100 mcg Given 07/27/2020 5:12 AM CDT 100 mcg Given 07/26/2020 5:52 AM CDT 100 mcg lidocaine (XYLOCAINE) 10 mg/mL (1 %) injection 100 mg 100 mg (10 mL), infiltration, Once, On Thu07/24/20 at 1000, For 1 dose, Indications: Administration of Local AnesthesiaIndications:Administration of Local Anesthesia Given 07/24/2020 10:54 AM CDT 50 mg Given 07/24/2020 9:57 AM CDT 50 mg lidocaine (XYLOCAINE) 20 mg/mL (2 %) preservative free injection - ADS Override Pull Starting on Thu07/24/20 at 0942, For 1 dose, JACQUELIN ADKINS: cabinet override Given 07/24/2020 9:58 AM CDT 40 mg lidocaine (XYLOCAINE) 20 mg/mL (2 %) preservative free injection - ADS Override Pull Starting on Thu07/24/20 at 0950, For 1 dose, JACQUELIN ADKINS: cabinet override Given 07/24/2020 9:58 AM CDT 40 mg lidocaine PF (XYLOCAINE) 10 mg/mL (1 %) preservative free injection - ADS Override Pull Starting on Thu07/24/20 at 0953, For 1 dose, JACQUELIN ADKINS: cabinet override lidocaine PF (XYLOCAINE) 10 mg/mL (1 %) preservative free injection Code/trauma/sedation medication, Starting on Thu07/24/20 at 1513, Intra-Procedure (IR), Indications: Administration of Local AnesthesiaIndications:Administration of Local Anesthesia Given 07/24/2020 3:13 PM CDT 5 mL B ack losartan (COZAAR) tablet 100 mg 100 mg, oral, Daily, First dose on Thu07/23/20 at 1630 Given 07/28/2020 7:53 AM CDT 100 mg Given 07/27/2020 5:12 AM CDT 100 mg Given 07/26/2020 9:10 AM CDT 100 mg magnesium citrate oral solution 296 mL 296 mL, oral, Once, On 07/28/20 at 1000, For 1 dose Given 07/28/2020 11:42 AM CDT 296 mL metoprolol XL (TOPROL-XL) extended release tablet 50 mg 50 mg, oral, Daily, First dose on Thu07/23/20 at 1630, Tablets that are scored may be split, but do not crush, chew, dissolve, open or otherwise manipulate tablet/capsule. Given 07/28/2020 7:52 AM CDT 50 mg Given 07/27/2020 5:11 AM CDT 50 mg Given 07/26/2020 9:10 AM CDT 50 mg morphine ER (MS CONTIN) extended release tablet 15 mg 15 mg, oral, 2 times daily, First dose (after last modification) on Thu07/23/20 at 2230, Do not crush, chew, cut, dissolve, open or otherwise manipulate tablet/capsule. Given 07/28/2020 7:53 AM CDT 15 mg Given 07/27/2020 8:08 PM CDT 15 mg Given 07/26/2020 8:07 PM CDT 15 mg morphine ER (MS CONTIN) extended release tablet 15 mg 15 mg, oral, Once, On Thu07/27/20 at 0615, For 1 dose, Pre-Op, If previous po dose is > 12hrs Do not crush, chew, cut, dissolve, open or otherwise manipulate tablet/capsule., Indications: severe chronic pain requiring long-term opioid treatmentIndications:severe chronic pain requiring long-term opioid treatment Given 07/27/2020 7:26 AM CDT 15 mg ondansetron (ZOFRAN) injection 4 mg 4 mg, intravenous, Administer over 2 Minutes, Every 6 hours PRN, nausea, vomiting, Starting on Thu07/23/20 at 1521, Proceed to trimethobenzamide if no relief within 30 minutes. , Indications: Nausea and VomitingIndications:Nausea and Vomiting Given 07/27/2020 9:02 AM CDT 4 mg Given 07/26/2020 5:40 PM CDT 4 mg Given 07/26/2020 9:11 AM CDT 4 mg oxyCODONE (ROXICODONE) tablet 5 mg 5 mg, oral, Every 4 hours PRN, 2nd line for pain, Starting on Thu07/25/20 at 0247, Indications: PainIndications:Pain Given 07/27/2020 12:14 AM CDT 5 mg Given 07/25/2020 3:12 AM CDT 5 mg oxyCODONE (ROXICODONE) tablet 5 mg 5 mg, oral, Every 4 hours PRN, 2nd line for pain, Starting on Thu07/27/20 at 1147, Indications: PainIndications:Pain Given 07/28/2020 5:44 AM CDT 5 mg Given 07/28/2020 12:11 AM CDT 5 mg Given 07/27/2020 8:08 PM CDT 5 mg sodium chloride 0.9% flush 0.5-20 mL 0.5-20 mL, intra-catheter, Every 8 hours scheduled, First dose on Thu07/23/20 at 1600, Flush volume based on line type and size. Given 07/28/2020 5:46 AM CDT 10 mL Given 07/27/2020 8:10 PM CDT 10 mL Given 07/27/2020 2:16 PM CDT 10 mL sodium chloride 0.9% flush 0.5-20 mL 0.5-20 mL, intra-catheter, As needed, line care, Starting on Thu07/23/20 at 1524, Flush volume based on line type and size. Flush before and after each use. sodium chloride 0.9% flush 0.5-20 mL 0.5-20 mL, intra-catheter, Every 8 hours scheduled, First dose on Thu07/27/20 at 1400, Flush volume based on line type and size. Given 07/27/2020 8:10 PM CDT 10 mL Given 07/27/2020 2:16 PM CDT 10 mL sodium chloride 0.9% infusion 75 mL/hr, intravenous, Continuous, Starting on Thu07/27/20 at 0000, Once NPO Rate/Dose Verify 07/27/2020 7:28 AM CDT New Bag 07/27/2020 12:14 AM CDT 75 mL/hr 75 mL/hr sodium chloride 0.9% with potassium chloride 20 mEq/L infusion (premix) 75 mL/hr, intravenous, Continuous, Starting on Thu07/27/20 at 1000, Phase I & Post-op Floor, Discontinue when tolerating PO (500 mL in 8 hours). New Bag 07/27/2020 10:03 AM CDT 75 mL/hr 75 mL/hr venlafaxine XR (EFFEXOR-XR) extended release capsule 150 mg 150 mg, oral, Daily with breakfast, First dose on Thu07/24/20 at 0800, Do not crush, chew, cut, dissolve, open or otherwise manipulate tablet/capsule. Given 07/28/2020 7:53 AM CDT 150 mg Given 07/27/2020 5:11 AM CDT 150 mg Given 07/26/2020 9:10 AM CDT 150 mg documented in this encounter Discontinued Medications Medication Sig Discontinue Reason Start Date End Da te mirtazapine (REMERON) 30 mg tablet Take 1/2 tab at bedtime for 2 weeks, then increase to 1 full tab at bedtime. 07/23/2020 07/23/2020 losartan (COZAAR) 50 mg tablet Take 50 mg by mouth 2 (two) times a day Error 07/23/2020 acetaminophen-codeine (TYLENOL with CODEINE #3) 300-30 mg per tablet TAKE 1 TABLET BY MOUTH EVERY DAY NEEDED FOR PAIN Error 04/11/2020 07/23/2020 venlafaxine XR (EFFEXOR-XR) 150 mg 24 hr capsule Take 1 37.5 mg cap in the morning and 1 150 mg cap in the evening Error 05/09/2020 07/23/2020 cholecalciferol (VITAMIN D-3) 1000 unit tablet Take 1,000 Units by mouth daily Error 07/23/2020 UNABLE TO FIND Medical Marijuana PRN rarely for pain at night Stop Taking at Discharge 07/28/2020 documented as of this encounter Historical Medications * This list may reflect changes made after this encounter. valsartan (DIOVAN) 160 mg tablet Take 160 mg by mouth daily morphine ER (MS CONTIN) 15 mg 12 hr tablet Take 15 mg by mouth 2 (two) times a day traZODone (DESYREL) 100 mg tabletIndications :sleep Take 50-100 mg by mouth nightly 08/29/2021 added in this encounter Active and Recently Administered Medications Times are shown in CDT. Scheduled Medication Order 07/26/2020 07/27/2020 07/28/2020 atorvastatin (LIPITOR) tablet 10 mg 10 mg, oral, Daily, First dose on Thu07/23/20 at 2100 2006 (Given - Provider: Rochelle Murdock RN) 0527 (DEC Hold - Provider: Automatic Transfer Provider - Reason: Patient not available)1138 (MAR Unhold - Provider: Automatic Transfer Provider)2007 (Given - Provider: Mckayla Rivas) bisacodyL (DULCOLAX) suppository 10 mg 10 mg, rectal, Once, On 07/28/20 at 0845, For 1 dose, Indications: constipation 0858 (Not Given - Provider: Ofelia Reyes RN - Reason: Patient/family refused) carbidopa-levodopa (SINEMET) 25-100 mg per tablet 4 tablet 4 tablet, oral, 3 times daily before meals, First dose on 07/23/20 at 1730, Indications: Parkinsonism 0913 (Given - Provider: Alesia Ness RN)1202 (Given - Provider: Alesia Ness RN)1740 (Given - Provider: Alesia Ness RN) 0512 (Given - Provider: Rochelle Murdock RN)0527 (DEC Hold - Provider: Automatic Transfer Provider - Reason: Patient not available)0730 (Not Given - Provider: Rochelle Murdock RN - Reason: Other - Comment: given prior to surgery)1130 (Dose Auto Held - Provider: Automatic Transfer Provider)1138 (MAR Unhold - Provider: Automatic Transfer Provider)1744 (Given - Provider: Cat Hopper RN) 0752 (Given - Provider: Ofelia Reyes, SHAYLA)1054 (Given - Provider: Ofelia Reyes RN) ceFAZolin (ANCEF) 2,000 mg/20 mL in sterile water (premix) 2,000 mg (COMPLETED) 2,000 mg, intravenous, at 400 mL/hr, Administer over 3 Minutes, Every 8 hours, First dose on Thu07/27/20 at 1230, For 2 doses, Starting 8 hours after last allison-operative dose., Indications: Prophylaxis, Surgical 1415 (New Bag - Provider: Cat Hopper RN)2009 (New Bag - Provider: Mckayla Rivas) docusate (COLACE) 10 mg/mL oral liquid 100 mg(Linked Group 1) 100 mg, feeding tube, 2 times daily, First dose on Thu07/23/20 at 2100, If able to receive medications per tube. Hold for diarrhea., Indications: constipation, Stool Softener 0910 (See Alternative - Provider: Alesia Ness RN)2006 (See Alternative - Provider: Rochelle Murdock RN) 0527 (MAR Hold - Provider: Automatic Transfer Provider - Reason: Patient not available)0900 (See Alternative - Provider: Rochelle Murdock RN)1138 (MAR Unhold - Provider: Automatic Transfer Provider)2007 (See Alternative - Provider: Mckayla Rivas) 0753 (See Alternative - Provider: Ofelia Reyes RN) docusate sodium (COLACE) capsule 100 mg(Linked Group 1) 100 mg, oral, 2 times daily, First dose on Thu07/23/20 at 2100, If able to swallow capsules. Hold for diarrhea., Indications: constipation, Stool Softener 0910 (Given - Provider: Alesia Ness RN)2006 (Given - Provider: Rochelle Murdock RN) 0527 (MAR Hold - Provider: Automatic Transfer Provider - Reason: Patient not available)0900 (Not Given - Provider: Rochelle Murdock RN - Reason: Other - Comment: given prior to surgery)1138 (DEC Unhold - Provider: Automatic Transfer Provider)2007 (Given - Provider: Mckayla Rivas) 075 (Given - Provider: Ofelia Reyes, SHAYLA) famotidine (PEPCID) tablet 20 mg 20 mg, oral, 2 times daily, First dose on Thu07/24/20 at 2100 0910 (Given - Provider: Alesia Ness RN)2006 (Given - Provider: Rochelle Murdock, SHAYLA) 05 (DEC Hold - Provider: Automatic Transfer Provider - Reason: Patient not available)0900 (Dose Auto Held - Provider: Automatic Transfer Provider)113 (DEC Unhold - Provider: Automatic Transfer Provider)2007 (Given - Provider: Mckayla Rivas) 075 (Given - Provider: Ofelia Reyes RN) gabapentin (NEURONTIN) tablet 600 mg 600 mg, oral, 2 times daily, First dose on Thu07/23/20 at 2100 0910 (Given - Provider: Alesia Ness RN)2006 (Given - Provider: Rochelle Murdock RN) 05 (Given - Provider: Rochelle Murdock RN - Comment: pt going to surgery)05 (DEC Hold - Provider: Automatic Transfer Provider - Reason: Patient not available)09 (Not Given - Provider: Rochelle Murdock RN - Reason: Other - Comment: given prior to surgery)113 (DEC Unhold - Provider: Automatic Transfer Provider)2007 (Given - Provider: Mckayla Rivas) 075 (Given - Provider: Ofelia Reyes, SHAYLA) heparin 5,000 unit/mL injection 5,000 Units 5,000 Units, subcutaneous, Every 12 hours scheduled, First dose on Thu07/24/20 at 2100, Indications: VTE Prophylaxis, On hold since Thu07/26/2020 at 1434 until manually unheld 09 (Given - Provider: Alesia Nses RN)1434 (Held by Provider - Provider: Riya Majano NP - Reason: Hold for Procedure)2100 (Dose Auto Held - Provider: Riya Majano NP) 0900 (Dose Auto Held - Provider: Riya Majano NP)2100 (Dose Auto Held - Provider: Riya Majano NP) 0900 (Dose Auto Held - Provider: Riya Majano NP)1916 (DEC Unhold - Provider: Automatic Discharge Provider) hydroCHLOROthiazide (HYDRODIURIL) tablet 12.5 mg 12.5 mg, oral, Daily, First dose on Thu07/23/20 at 1630 0910 (Given - Provider: Alesia Ness RN) 0511 (Given - Provider: Rochelle Murdock RN - Comment: pt going to surgery)0527 (DEC Hold - Provider: Automatic Transfer Provider - Reason: Patient not available)0900 (Not Given - Provider: Rochelle Murdock RN - Reason: Other - Comment: given prior to surgery)1138 (DEC Unhold - Provider: Automatic Transfer Provider) 0752 (Given - Provider: Ofelia Reyes RN) lactulose 0.67 gram/mL oral solution 20 g (COMPLETED) 20 g, feeding tube, Once, On 07/28/20 at 0845, For 1 dose 0858 (Given - Provider: Ofelia Reyes, SHAYLA) levothyroxine (SYNTHROID) tablet 100 mcg 100 mcg, oral, Daily, First dose on Thu07/24/20 at 0600, Administer on an empty stomach, preferably 30 minutes before breakfast. Take 4 hours apart from antacids, iron and calcium products. 0552 (Given - Provider: Rochelle Murdock RN) 0512 (Given - Provider: Rochelle Murdock RN)05 (DEC Hold - Provider: Automatic Transfer Provider - Reason: Patient not available)1138 ([facility] Unhold - Provider: Automatic Transfer Provider) 0545 (Given - Provider: Lyn De La O RN) losartan (COZAAR) tablet 100 mg 100 mg, oral, Daily, First dose on Thu07/23/20 at 1630 0910 (Given - Provider: Alesia Ness RN) 0512 (Given - Provider: Rochelle Murdock RN - Comment: pt going to surgery)0527 (DEC Hold - Provider: Automatic Transfer Provider - Reason: Patient not available)0900 (Not Given - Provider: Rochelle Murdock RN - Reason: Other - Comment: given prior to surgery)1138 (DEC Unhold - Provider: Automatic Transfer Provider) 0753 (Given - Provider: Ofelia Reyes RN) magnesium citrate oral solution 296 mL (COMPLETED) 296 mL, oral, Once, On Thu07/28/20 at 1000, For 1 dose 1142 (Given - Provider: Ofelia Reyes RN) metoprolol XL (TOPROL-XL) extended release tablet 50 mg 50 mg, oral, Daily, First dose on Thu07/23/20 at 1630, Tablets that are scored may be split, but do not crush, chew, dissolve, open or otherwise manipulate tablet/capsule. 0910 (Given - Provider: Alesia Ness RN) 05 (Given - Provider: Rochelle Murdock RN - Comment: pt going to surgery)05 (DEC Hold - Provider: Automatic Transfer Provider - Reason: Patient not available)0900 (Not Given - Provider: Rochelle Murdock RN - Reason: Other - Comment: given prior to surgery)113 (DEC Unhold - Provider: Automatic Transfer Provider) 075 (Given - Provider: Ofelia Reyes RN) morphine ER (MS CONTIN) extended release tablet 15 mg 15 mg, oral, 2 times daily, First dose (after last modification) on Thu07/23/20 at 2230, Do not crush, chew, cut, dissolve, open or otherwise manipulate tablet/capsule. 09 (Given - Provider: Alesia Ness RN)2006 (Given - Provider: Rochelle Murdock RN) 05 (DEC Hold - Provider: Automatic Transfer Provider - Reason: Patient not available)0900 (Dose Auto Held - Provider: Automatic Transfer Provider)1138 (DEC Unhold - Provider: Automatic Transfer Provider)2007 (Given - Provider: Mckayla Rivas) 075 (Given - Provider: Ofelia Reyes RN) morphine ER (MS CONTIN) extended release tablet 15 mg (COMPLETED) 15 mg, oral, Once, On Thu07/27/20 at 0615, For 1 dose, Pre-Op, If previous po dose is > 12hrs Do not crush, chew, cut, dissolve, open or otherwise manipulate tablet/capsule., Indications: severe chronic pain requiring long-term opioid treatment 0726 (Given - Provider: Anuja Loo, SHAYLA) sodium chloride 0.9% flush 0.5-20 mL 0.5-20 mL, intra-catheter, Every 8 hours scheduled, First dose on Thu07/23/20 at 1600, Flush volume based on line type and size. 0552 (Given - Provider: Rochelle Murdock RN)1222 (Given - Provider: Alesia Ness RN)2006 (Given - Provider: Rochelle Murdock RN) 0527 (MAR Hold - Provider: Automatic Transfer Provider - Reason: Patient not available)0600 (Dose Auto Held - Provider: Automatic Transfer Provider)1138 (MAR Unhold - Provider: Automatic Transfer Provider)141 (Given - Provider: Cat Hopper RN)2009 (Given - Provider: Mckayla Rivas) 0546 (Given - Provider: Lyn De La O, SHAYLA)1400 (Due - Provider: Automatic Transfer Provider) sodium chloride 0.9% flush 0.5-20 mL 0.5-20 mL, intra-catheter, Every 8 hours scheduled, First dose on Thu07/27/20 at 1400, Flush volume based on line type and size. 1416 (Given - Provider: Cat Hopper RN)2009 (Given - Provider: Mckayla Rivas) 0559 (Not Given - Provider: Lyn De La O RN - Reason: Other)1400 (Due) venlafaxine XR (EFFEXOR-XR) extended release capsule 150 mg 150 mg, oral, Daily with breakfast, First dose on Thu07/24/20 at 0800, Do not crush, chew, cut, dissolve, open or otherwise manipulate tablet/capsule. 0910 (Given - Provider: Alesia Ness RN) 0511 (Given - Provider: Rochelle Murdock RN - Comment: pt going to surgery)05 (MAR Hold - Provider: Automatic Transfer Provider - Reason: Patient not available)0800 (Not Given - Provider: Rochelle Murdock RN - Reason: Other - Comment: given prior to surgery)1138 (MAR Unhold - Provider: Automatic Transfer Provider) 0753 (Given - Provider: Ofelia Reyes, SHAYLA) Continuous Medication Order 07/26/2020 07/27/2020 07/28/2020 Lactated Ringer's (LR) infusion (CANCELED) 30 mL/hr, intravenous, Continuous, Starting on Thu07/27/20 at 0615, Pre-Op 0718 (Due)0727 (New Bag - Provider: Anuja Loo, SHAYLA)0750 (New Bag - Provider: Shanelle Martin CRNA)0904 (Stopped - Provider: Shanelle Martin CRNA) sodium chloride 0.9% infusion 75 mL/hr, intravenous, Continuous, Starting on Thu07/27/20 at 0000, Once NPO 0014 (New Bag - Provider: Oscar Murdock, SHAYLA)0600 (Stopped - Provider: Rochelle Murdock, SHAYLA)0728 (Rate/Dose Verify - Provider: Shanelle Martin CRNA)0856 (Anesthesia Volume Adjustment - Provider: Shanelle Martin CRNA) sodium chloride 0.9% with potassium chloride 20 mEq/L infusion (premix) 75 mL/hr, intravenous, Continuous, Starting on Thu07/27/20 at 1000, Phase I & Post-op Floor, Discontinue when tolerating PO (500 mL in 8 hours). 1003 (New Bag - Provider: Usha Meyer RN)2245 (Stopped - Provider: Rochelle Murdock, SHAYLA) PRN Medication Order 07/26/2020 07/27/2020 07/28/2020 acetaminophen (TYLENOL) tablet 650 mg 650 mg, oral, Every 4 hours PRN, 1st line for pain, Starting on Thu07/23/20 at 1524, Indications: Pain 1221 (Given - Provider: Alesia Ness RN) 0527 (DEC Hold - Provider: Automatic Transfer Provider - Reason: Patient not available)1138 (DEC Unhold - Provider: Automatic Transfer Provider)1201 (Given - Provider: Cat Hopper, SHAYLA)1604 (Given - Provider: Cat Hopper RN) 0011 (Given - Provider: Lyn De La O, SHAYLA)0544 (Given - Provider: Lyn De La O RN)1224 (Given - Provider: Ofelia Reyes RN) albuterol 2.5 mg/0.5 mL nebulizer solution 2.5 mg(Linked Group 2) 2.5 mg, nebulization, Every 4 hours PRN (respiratory medicine physician), wheezing, shortness of breath, Starting on Thu07/24/20 at 1008 0527 (DEC Hold - Provider: Automatic Transfer Provider - Reason: Patient not available)1138 (DEC Unhold - Provider: Automatic Transfer Provider) benzocaine-menthoL (CHLORASEPTIC) lozenge 1 lozenge 1 lozenge, mouth/throat, Every 2 hours PRN, sore throat, Starting on Thu07/27/20 at 1636 1851 (Given - Provider: Cat Hopper RN) 1218 (Given - Provider: Ofelia Reyes RN) bisacodyL (DULCOLAX) suppository 10 mg 10 mg, rectal, Daily PRN, constipation, If no results 24 hours after polyethylene glycol (MIRALAX). May give bisacodyl tablet if tolerating PO., Starting on Thu07/27/20 at 1147, Indications: constipation 1052 (Given - Provider: Ofelia Reyes RN) bisacodyl EC (DULCOLAX EC) tablet 10 mg 10 mg, oral, Daily PRN, constipation, If no results 24 hours after polyethylene glycol (MIRALAX). May give bisacodyl supp if not tolerating PO), Starting on Thu07/27/20 at 1147, Do not crush, chew, cut, dissolve, open or otherwise manipulate tablet/capsule., Indications: constipation bupivacaine-EPINEPHrine (MARCAINE with EPI) 0.25 %-1:200,000 preservative free injection (CANCELED) As needed, Starting on Thu07/27/20 at 0826, Intra-Op 0826 (Given - Provider: Maximus Smart MD PhD) ipratropium (ATROVENT) 0.02 % nebulizer solution 0.5 mg(Linked Group 2) 0.5 mg, nebulization, Every 4 hours PRN (respiratory medicine physician), wheezing, shortness of breath, Starting on Thu07/24/20 at 1008 0527 (DEC Hold - Provider: Automatic Transfer Provider - Reason: Patient not available)1138 (DEC Unhold - Provider: Automatic Transfer Provider) ondansetron (ZOFRAN) injection 4 mg 4 mg, intravenous, Administer over 2 Minutes, Every 6 hours PRN, nausea, vomiting, Starting on Thu07/23/20 at 1521, Proceed to trimethobenzamide if no relief within 30 minutes. , Indications: Nausea and Vomiting 0911 (Given - Provider: Alesia Ness RN)1740 (Given - Provider: Alesia Ness RN) 0527 ([facility] Hold - Provider: Automatic Transfer Provider - Reason: Patient not available)0902 (Given - Provider: Shanelle Martin CRNA)1138 ([facility] Unhold - Provider: Automatic Transfer Provider) oxyCODONE (ROXICODONE) tablet 5 mg (CANCELED) 5 mg, oral, Every 4 hours PRN, 2nd line for pain, Starting on Thu07/25/20 at 0247, Indications: Pain 0014 (Given - Provider: Rochelle Murdock RN)0527 ([facility] Hold - Provider: Automatic Transfer Provider - Reason: Patient not available)1138 ([facility] Unhold - Provider: Automatic Transfer Provider) oxyCODONE (ROXICODONE) tablet 5 mg 5 mg, oral, Every 4 hours PRN, 2nd line for pain, Starting on Thu07/27/20 at 1147, Indications: Pain 1201 (Given - Provider: Cat Hopper RN)1604 (Given - Provider: Cat Hopper RN)2008 (Given - Provider: Mckayla Rivas) 0011 (Given - Provider: Lyn De La O, SHAYLA)0544 (Given - Provider: Lyn De La O RN) polyethylene glycol (MIRALAX) packet 17 g 17 g, oral, Daily PRN, constipation, Starting on Thu07/27/20 at 1147, Indications: constipation sodium chloride 0.9 % irrigation (CANCELED) As needed, Starting on Thu07/27/20 at 0827, Intra-Op 0827 (Given - Provider: Maximus Smart MD PhD) sodium chloride 0.9% flush 0.5-20 mL 0.5-20 mL, intra-catheter, As needed, line care, Starting on Thu07/23/20 at 1524, Flush volume based on line type and size. Flush before and after each use. 0527 (DEC Hold - Provider: Automatic Transfer Provider - Reason: Patient not available)1138 (DEC Unhold - Provider: Automatic Transfer Provider) sodium chloride 0.9% flush 0.5-20 mL 0.5-20 mL, intra-catheter, As needed, line care, Starting on Thu07/27/20 at 1147, Flush volume based on line type and size. Flush before and after each use. thrombin-recombinant 5,000 unit solution (CANCELED) As needed, Starting on Thu07/27/20 at 0826, Intra-Op 0826 (Given - Provider: Maximus Smart MD PhD) Linked Groups Order Group 1: docusate sodium (COLACE) capsule 100 mgJump to med 100 mg, oral, 2 times daily, First dose on Thu07/23/20 at 2100, If able to swallow capsules. Hold for diarrhea., Indications: constipation, Stool Softener Or docusate (COLACE) 10 mg/mL oral liquid 100 mgJump to med 100 mg, feeding tube, 2 times daily, First dose on Thu07/23/20 at 2100, If able to receive medications per tube. Hold for diarrhea., Indications: constipation, Stool Softener Group 2: albuterol 2.5 mg/0.5 mL nebulizer solution 2.5 mgJump to med 2.5 mg, nebulization, Every 4 hours PRN (respiratory medicine physician), wheezing, shortness of breath, Starting on Thu07/24/20 at 1008 And ipratropium (ATROVENT) 0.02 % nebulizer solution 0.5 mgJump to med 0.5 mg, nebulization, Every 4 hours PRN (respiratory medicine physician), wheezing, shortness of breath, Starting on Thu07/24/20 at 1008 documented in this encounter Orders Medications Ordered That Tobi ht Not Have Been Administered Count Last Ordered Date First Ordered Date bisacodyL (DULCOLAX) suppository 10 mg 1 bisacodyl EC (DULCOLAX EC) tablet 10 mg 1 1 bupivacaine-EPINEPHrine (MAR JAVAN with EPI) 0.25 %-1:200,000 preservative free injection 1 07/27/2020 diphenhydrAMINE (BENADRYL) i njection 12.5 mg 1 07/27/2020 fentaNYL (SUBLIMAZE) preserv ative free injection 50 mcg 1 07/27/2020 gabapentin (NEURONTIN) capsule 300 mg 1 11/2019 HYDROmorphone (DILAUDID) injection 0.4 mg 1 07/27/2020 lidocaine PF (XYLOCAINE) 10 mg/mL (1 %) preservative free injection 2-10 mg 1 07/27/2020 meperidine (DEMEROL) preserv ative free injection 12.5 mg 1 07/27/2020 naloxone (NARCAN) 0.4 mg/mL injection 0.04-0.4 mg 1 07/27/2020 ondansetron (ZOFRAN) injection 4 mg 1 07/27 polyethylene glycol (MIRALAX) packet 17 g 1 07/27/2020 prochlorperazine (COMPAZINE) injection 10 mg 2 07/27/2020 07/23/2020 sodium chloride 0.9 % irrigation 1 07/27/20 20 sodium chloride 0.9% flush 0.5-20 mL 3 11/201907/23/2020 thrombin-recombinant 5,000 unit solution 1 07/27/2020 lidocaine PF (XYLOCAINE) 10 mg/mL (1 %) preservative free injection - ADS Override Pull 1 07/24/2020 docusate (COLACE) 10 mg/mL o ral liquid 100 mg 1 07/23/2020 morphine ER (MS CONTIN) exte nded release tablet 15 mg 1 07/23/2020 venlafaxine XR (EFFEXOR-XR) extended release capsule 37.5 mg 1 07/23/2020 Lab Orders Without Results Count Last Ordered D ate First Ordered Date POCT GLUCOSE DEVICE 1 07/23/2020 Diet Count Last Ordered Date First Orde red Date ADULT DISCHARGE DIET 1 07/28/2020 Nursing Count Last Ordered Date First Orde red Date DISCHARGE ACTIVITY 2 07/28/2020 DISCHARGE CALL PROVIDER 1 07/28/2020 WEIGH PATIENT 1 07/23/2020 Consult Count Last Ordered Date First Orde red Date IP CONSULT TO RESPIRATORY CARE 1 07/24/2020 CORE MEASURES Count Last Ordered Date First Ord ered Date REASON FOR NO VTE PROPHYLAXI S - HOSPITAL ADMISSION - MEDICATIONS 2 07/27/2020 07/23/2020 Case Request Count Last Ordered Date First Orde red Date CASE REQUEST OPERATING ROOM 1 07/25/2020 documented in this encounter Care Teams Overlock Hemmer Relationship Specialty Start Date End Date Cecilia Lim MD PCP - General Family Medicine 12/21/19 12/30/20 Rodolfo Mantilla MD [address] [place] [id number] Consulting Physician Neurology 12/21/19 documented as of this encounter
--- OUTSIDE RECORDS SUMMARY | 2024-10-31 03:51 | XMS_ITS | Encounter Summary ---
Author Organization [facility] Healthcare Address [address] [place] [address] Care Team Providers Care Yeast Supervisor Name Role Phone Cecilia Lim MD Primary Care Provider Rodolfo Mantilla MD Unavailable Encounter Details Date Type Department Care Team (Latest Contact Info) Description 07/27/2020 7:30 AM CDT - 07/27/2020 12:50 PM CDT Surgery [facility] Operating Room [address] [place] [address] Leobardo Perez MD [facility] [address] [place], [place] [id number] INSERTION / REVISION SHUNT - VENTRICULOPERITONEAL Surgery Details Date/Time Status Location OR Service Patient Class Case Class Case Type Trauma Case? 07/27/2020 7:30 AM Posted [facility] OR POD 5 225 Neurosurgery Inpatient Time Sensitive - 1 Week Panel 1 Procedure LRB Anes Op Region Wound Class Comments INSERTION / REVISION SHUNT - VENTRICULOPERITONEAL Right General Head Class I - Clean Surgeon Surgeon Role Service Panel Leobardo Perez MD Primary Neurosurgery 1 Maximus Smart MD PhD Resident - Assisting Neurosurge ry 1 Special Needs stealth, no need for Gen surg assistance, planning for R parietal approach documented in this encounter Social History Tobacco Use Types Packs/Day Years Used Date Smoking Tobacco: Former Cigarettes Q uit: 07/27/1970 Smokeless Tobacco: Never Alcohol Use Standard Drinks/Week Comments Yes 1 (1 standard drink = 0.6 oz pur e alcohol) Comments No Sex and Gender Information Value Date Recorded Sex Assigned at Not on file Legal Sex Female 1:04 AM MANAGER FINE Gender Identity Not on file Sexual Orientation Not on file Occupation Industry Job Start Date Job End Date retired Not on file Not on file Not on file documented as of this encounter Last Filed Vital Signs Vital Sign Reading Time Taken Comments Blood Pressure 144/88 07/27/2020 12:45 PM CDT Pulse 81 07/27/2020 12:45 PM CDT Temperature 36.6 ??C (97.9 ??F) 07/27/2020 12:05 PM C DT Respiratory Rate 23 07/27/2020 12:45 PM CDT Oxygen Saturation 92% 07/27/2020 12:45 PM CDT Inhaled Oxygen Concentration - - Weight 102.1 kg (225 lb) 07/23/2020 3:05 PM CDT Height 163.8 cm (5' 4.5 ) 07/23/2020 3:05 PM CDT Body Mass Index 38.02 07/23/2020 3:05 PM CDT documented in this encounter Discharge Summaries * Riya Majano, LOADER MACHINE - 07/24/2020 3:41 PM CDT Inpatient Discharge Summary BRIEF OVERVIEW Admitting Provider: Leobardo Perez MD Discharge Provider: Leobardo Perez MD Primary Care Physician at Discharge: Cecilia Lim MD [phone] Admission Date: 07/23/2020 Discharge Date: 07/28/2020 Admission Location: [facility] Problems/Diagnoses: Principal Problem: NPH (normal pressure hydrocephalus) (CMS/[facility]) Resolved Problems: No resolved hospital problems. DETAILS [...] Hospital Course: Ms Bansal was admitted to [facility] on 07/23/20. On 07/24 he had an initial mckeon of 36, and his lumbar drain was placed. Subsequent bergs were 40, 42, and 46 and had subjectively improved gait. On 07/27 he went to the OR for a right parietal RAG CUTTING MACHINE TENDER shunt placement. The patient was taken to the PACU for recovery and then transferred to [facility] for further observation Problems addressed during this hospitalization: 1. NPH: LD placement Procedures: 1. 07/23 Lumbar drain placement and right sided RAG CUTTING MACHINE TENDER shunt placement Consults: 1. None GI/ Concerns: [...] None Operative Procedures Performed: 07/27 R P RAG CUTTING MACHINE TENDER shunt 07/24 Lumbar drain Other Procedures: None Pertinent Test Results: 07/27 RAG CUTTING MACHINE TENDER shunt series- Right parietal approach RAG CUTTING MACHINE TENDER shunt with catheter coiling of the right [...] Center 11/05/2020 1:30 PM Shruthi Rivero NP T [facility] 04/17/2021 9:00 AM Rodolfo Mantilla MD T [facility] Contact Information for Follow-ups Cecilia Lim MD Specialty: Family Medicine Relationship: PCP - General [address] [place] [address] Next Steps: Follow up Cosigned by Leobardo [...] cannot drive while taking narcotic pain medication. [place] and [place] law prohibit anyone from operating a motor [...] blood pressure), call your family doctor or senior quality control inspector. You may be given a prescription for [...] by 07/30, please call the office at [phone]. Phone numbers ??? Appointment Scheduling: ??? Doctor???s [...] output: I/O last 2 completed shifts: In: 0 [P.O.:600; I.V.:1520; IV Piggyback:20] Out: - Medications: [...] bold with questions) Maximus Smart, Chief Resident ([phone]) Celi De Luna pager [phone] Chauncey Gilbert pager [phone] Note created by Chauncey Gilbert MD on [...] bold with questions) Maximus Smart, Chief Resident ([phone]) Celi De Luna pager [phone] Chauncey Gilbert pager [phone] Note created by Chauncey Gilbert MD on [...] 07/23/2020 VerifyNow No results found for: SALICYLATE, [id number] CXR: pending EKG: reviewed Covid-19: Negative Patient [...] intact. The site was closed with a [id number] stitch using 3-0 absorbable monocryl suture. No issues. Joesph Melton MD PhD * Mayi Gilbert MD - 07/26/2020 7:17 AM CDT Neurosurgery Daily Progress Note 07/26/2020 Hospital course 07/23 admitted 07/24 Mckeon 36 prior to LD placement. Bedside LD placement attempts unsuccessful, LD placed under fluoroscopic guidance, pepcid & SQH started. Mkceon 40 after with subjectively improved walking as [...] / FU: Assessment Hospital Day: 4 Olga M Bansal is a 74 y.o. year old female who presented with diagnosis of Gait instability requiring NPH workup lumbar drain trial, no AC/AP PMH PD (Ushe), HTN, HLD, hypothyroid Plan [ ] PT Mike spann Responsible team (call resident in bold with questions) Maximus Smart, Chief Resident ([phone]) Celi eD Luna pager [phone] Chauncey Gilbert pager [phone] Note created by Chauncey Gilbert MD on [...] bold with questions) Maximus Smart, Chief Resident ([phone]) Celi De Luna pager [phone] Chauncey Gilbert pager [phone] Note created by Celi De Luna MD on 07/25/2020 at 6:15 AM. Cosigned by Leobardo Perez MD at 07/25/2020 8:21 AM CDT * David West RN - 07/24/2020 4:02 PM CDT 07/24/20 1602 Information Information Obtained From Spouse (via telephone) Name Calderon Bansal [phone] Referral Data Referral Source Self referral Prior to Admission Primary Caregiver Self Support System Spouse/Significant Other;Children Support system contact info (name, phone, availablity) Calderon Bansal [phone] (spouse) Home Care Services No Durable Medical Equipment Cane (single prong);Walker (wheeled);Walker (no wheels) Living Arrangements Spouse/significant other (Dtr likly to move in soon) Type of Residence Private residence Steps in home? Yes, Outside of home Number of steps outside: 3 steps Financial Resource Income Long-Term/Pension Payor Source Medicare;Supplemental ([facility]) Potential Discharge Needs Anticipated discharge level [...] admission. Insurance verified: Medicare A/ B & [facility] Admission source: non health care point of origin [facility] PCP verified: Dr. Lim is no longer [...] agreement with the aftercare plan. Addendum 07/25/2020 1548 CM verified pt's PCP is Zion Alejandre [phone]. (Physician took over Dr. Lim's practice) * [...] 07/23/2020 VerifyNow No results found for: SALICYLATE, [id number] CXR: reviewed EKG: pending Covid-19: Pending Patient [...] (call resident in bold with questions) Maximus Smrat, Chief Resident ([phone]) Celi De Luna pager [phone] Chauncey Gilbert pager [phone] Note created by Celi De Luna MD on 07/24/2020 at 6:15 AM. Cosigned by Leobardo Perez MD at 07/25/2020 8:21 AM CDT documented in this encounter H&P Notes * Juve Bustos MD - 07/23/2020 10:10 PM CDT Neurosurgery History and Physical Patient: Olga Bansal CSN: [id number] : 1945 Admission date: 07/23/2020 Admitting attending: [...] capsule Social history: The patient lives in [place], [place]. Her Calderon can be reached at [phone]. Family history: Reviewed and noncontributory. Physical Examination: [...] discussed with the chief resident and attending communications tower technician. Juve Bustos MD Cosigned by Leobardo Perez [...] RN - 07/25/2020 10:50 PM CDT Neurosurgery communications tower technician resident Shamir Lynch notified of drainage on sheets and under dressing of lumbar drain. He stated he will come examine the patient at some point tonight. Will continue to monitorsite. * Jacquelin Dent RN - 07/24/2020 10:00 AM CDT Patient c/o shortness of breath, began to wheeze, remains alert and oriented. C/o feelinh flushed and hot. Patient placed on 5LNC. Procedure stopped LOADER MACHINE and MD at bedside. CXR obtained. Respiratory [...] Strata valve set at 2.0 using the [employer] AxiEM system for neuronavigation. SURGEONS PRESENT 1. Leobardo Perez MD, attending physician. 2. Berry Stroud Md, PhD resident physician. ANESTHESIA General endotracheal anesthesia. INDICATIONS FOR PROCEDURE Olga Bansal is a 74 y.o. female with normal pressure hydrocephalus. The patient has been counseled on the need for a RAG CUTTING MACHINE TENDER shunt for hydrocephalus. The patient has been [...] region. The patient was registered on the [employer]mobilityEM system for neuronavigation and the planned incision [...] neuro checks q4, NPO at midnight for RAG CUTTING MACHINE TENDER shunt tomorrow, CHG bathprior to surgery Summary: [...] Lumbar drain dressing was slightly leaking, neurosurgery communications tower technician resident was called and came to access site and reinforce dressing. Pt later complained of leg pain, neurosurgery communications tower technician notified again, PRN pain medication was ordered. [...] Brief Post Procedure Note Attending: Dr. Norwood Family Counselor: Dr. Dash Hopper Sedation/Anesthesia: Local Pre-procedure diagnosis: [...] been discussed with the patient and/or their dealer compliance representative. All questions answered and they agree to proceed. * Plan of Care - David West RN - 07/24/2020 12:07 PM CDT CM placed a call to pt at [phone] for initial interview completion, there was no answer. CM will f/u later. Case Management to follow for planning and referrals as needed. * Plan of Care - Jacquelin Dent RN - 07/24/2020 10:53 AM CDT Goals: [...] * Plan of Care - Pati Still, RN - 07/24/2020 2:54 AM CDT Problem: Lack [...] 7:30 AM CDT NPH (normal pressure hydrocephalus) ([facility]) Special Needs stealth, no need for Gen [...] 07/27/2020 12:29 PM CDT Right parietal approach RAG CUTTING MACHINE TENDER shunt with catheter coiling of the right lower quadrant with no definite kinks in the radiopaque portions of the catheter. ??However note suboptimal evaluation due to patient's large body habitus, as detailed above. Electronically signed by: Kisha Tse M.D. Narrative 07/27/2020 12:29 PM CDT EXAM: RAG CUTTING MACHINE TENDER shunt series. REASON: Normal pressure hydrocephalus. PRIOR: No direct comparison. TECHNIQUE: AP and lateral view of the head, AP view of the chest and pelvis and AP and lateral view of the abdomen, 6 images total. FINDINGS: Right parietal approach RAG CUTTING MACHINE TENDER shunt is identified extending down the right [...] Note Kisha Davenport MD - 07/27/2020 EXAM: RAG CUTTING MACHINE TENDER shunt series. REASON: Normal pressure hydrocephalus. PRIOR: No direct comparison. TECHNIQUE: AP and lateral view of the head, AP view of the chest and pelvis and AP and lateral view of the abdomen, 6 images total. FINDINGS: Right parietal approach RAG CUTTING MACHINE TENDER shunt is identified extending down the right [...] abdomen and pelvis. IMPRESSION: Right parietal approach RAG CUTTING MACHINE TENDER shunt with catheter coiling of the right lower quadrant with no definite kinks in the radiopaque portions of the catheter. However note suboptimal evaluation due to patient's large body habitus, as detailed above. Electronically signed by: Kisha Tse M.D. Leobardo Perez MD IMG XR PROCEDURES Final Resul t * POCT glucose (07/27/2020 9:43 AM CDT) Glucose, POC 101 70 - 199 mg/dL [facility] Blood specimen (specimen) 07/27/2020 9:43 AM CDT 07/27/2020 9:43 AM CDT Leobardo Perez MD LAB POCT ORDERABLES - DEVICE Final Result Performing Organization Address City/[facility]/ZIP Co de Phone Number [facility] Department [place] [address] * POCT glucose (07/27/2020 6:26 AM CDT) Glucose, POC 116 70 - 199 mg/dL [facility] Blood specimen (specimen) 07/27/2020 6:26 AM CDT 07/27/2020 6:26 AM CDT Leobardo Perez MD LAB POCT ORDERABLES - DEVICE Final Result [facility] Department [place] [address] * CT Head Stealth WO Contrast (07/26/2020 [...] Units (07/26/2020 2:40 PM CDT) Product code [id number] [facility] Unit Number [id number] 2-9 [facility] Product Blood Type OPOS CERNER BJ Dispense Status RETURNED [facility] Product code [id number] [facility] Unit Number [id number] 2-9 [facility] Product Blood Type [facility]OS [facility] Dispense Status RETURNED [facility] Blood specimen (specimen) 07/26/2020 2:40 PM CDT 07/26/2020 2:39 PM CDT Narrative [facility] - 07/30/2020 12:40 AM CDT Specify Procedure:->RAG CUTTING MACHINE TENDER shunt placement Are special requirements needed? (all products are leukoreduced)->Yes Date required:-[id number] Reasons:-Hold for procedure (specify procedure)} Special Req 2:-Per IPAP note: history of positive indirect Yaneth and is having a surgery where blood antibodies are pertinent. The antibody type is pending verification (prior history of Anti-E, Anti little c, and AUS). LRRBC # of [id number] Leobardo Perez MD BLOOD BANK PRODUCT ORDERABLES Final Result [facility] Department [place] [address] * Antibody identification (07/26/2020 12:29 PM CDT) Antibody ID 2 Anti Little c [facility] Comment:Previous AUS not det ected Antibody ID 1 Anti-E [facility] Blood specimen (specimen) 07/26/2020 12:29 PM CDT 07/26/2020 12:29 PM CDT Riya Majano NP LAB BLOOD BANK TEST ORDERA BLES Final Result Performing Organization Address City/[facility]/ZIP Co de Phone Number [facility] [place] [address] * (ABNORMAL) Type and screen (07/26/2020 10:32 AM CDT) ABO Rh A Positive [facility] Yaneth, indirect Positive(A) [facility] Blood specimen (specimen) 07/26/2020 10:32 AM CDT 07/26/2020 11:27 AM CDT Narrative [facility] - 07/26/2020 12:29 PM CDT Has the patient had Daratumumab or Isatuximab in the past 6 months?->Unknown Riya Majano NP LAB BLOOD BANK TEST ORDERA BLES Final Result Performing Organization Address [facility] de Phone Number [facility] [place] [address] * COVID-19 Coronavirus RNA Nasopharyngeal (07/25/2020 2:45 PM CDT) Pathologist [facility] COVID-19 RNA Not Detected [facility] Comment: Interpretive Data Testing performed at [facility]. The 2019-Novel Coronavirus [...] revised on 2020. First COVID-19 test? Unknown [facility] Employeed in healthcare? No [facility] status? No [facility] Group care resident? No [facility] Hospitalized? Yes [facility] Is patient in ICU? No [facility] Nasopharyngeal 07/25/2020 2: 45 PM CDT 07/25/2020 5:16 PM CDT Narrative [facility] - 07/25/2020 10:19 PM CDT Is the patient experiencing any symptoms consistent with COVID (eg. Fever, cough, shortness of breath)?->No What is the reason for testing?->Likely to be admitted to semi-private room us Leobardo Perez MD LAB MICROBIOLOGY - GENERAL OR DERABLES Final Result [facility] Department [place] [address] * IR Lumbar Puncture, Diagnostic incl Fluoro [...] by: Kisha Tse M.D. Riya Majano NP IM FLUOROSCOPY PROCEDURES Final Result * XR Chest [...] PM CDT) Antibody ID 1 Anti-E [facility] Antibody ID 2 Anti Little c [facility] Blood specimen (specimen) 07/23/2020 6:01 PM CDT 07/23/2020 6:01 PM CDT Francisca France NP LAB BLOOD BANK TEST ORDERABLES Final Result [facility] Department [place] [address] * ECG 12 lead (07/23/2020 5:12 PM CDT) Ventricular Rate EKG/Min 70 BPM [facility] Atrial Rate 70 BPM [facility] MS-Interval (MSEC) 150 ms [facility] QRS-Interval (MSEC) 92 ms [facility] QT-Interval (MSEC) 396 ms [facility] QTc 427 ms [facility] P Cool 34 degrees [facility] R Cool -5 degrees [facility] T Cool -7 degrees [facility] Diagnosis Baseline wander Normal sinus rhythm Moderate voltage criteria for LVH, may be normal variant Borderline ECG No previous ECGs available Confirmed by ANN HASSAN M.D ([id number]) on 07/24/2020 9:17:33 PM [facility] 07/23/2020 5:12 PM CDT 07/24/2020 9:17 PM CDT Francisca France LOADER MACHINE ECG ORDERABLES Fin al Result Performing Organization Address City/[facility]/ZIP Co de Phone Number [facility] * (ABNORMAL) Urinalysis, microscopic only (07/23/2020 5:12 PM CDT) Pathologist [facility] WBC, ur 0-5 0 - 5 /HPF [facility] RBC, ur 3-5(A) 0 - 2 /HPF [facility] Epithelial cells, squamous, ur 1-5 0 - 5 /HPF [facility] Bacteria, ur Trace(A) [facility] Culture Reflex Comment Reflex conditions for urine culture (WBC >10) not met. [facility] Urine 07/23/2020 5:12 PM CDT 07/23/2020 5:34 PM CDT Francisca France NP LAB URINE ORDERABLE S Final Result Performing Organization Address City/[facility] Co de Phone Number [facility] Department [place] [address] * (ABNORMAL) Urinalysis reflex to microscopic and culture Urine (07/23/2020 5:12 PM CDT) Color, ur Yellow Yellow [facility] Clarity, ur Clear Clear [facility] Specific gravity, ur 1.012 1.010 - 1.025 [facility] pH, urine 6 [facility] Protein, ur ql Negative Negative [facility] Glucose, ur ql Negative Negative [facility] Ketones, ur Negative Negative [facility] Bilirubin, ur Negative Negative [facility] Blood, ur Negative Negative [facility] Urobilinogen, ur <2.0 <2.0 mg/dL [facility] Nitrite, ur Negative Negative [facility] Leukocyte esterase, ur 2+(A) Negative [facility] UA reflex comment Reflex to microscopic UA will be performed. [facility] Urine 07/23/2020 5:12 PM CDT 07/23/2020 5:34 PM CDT Narrative [facility] - 07/23/2020 5:46 PM CDT ?? Urine pH is affected by diet, medications, systemic acid-base disturbances, and renal tubular function. ??pH may affect urinary stone formation. ??For example, urine pH below 6.0 may help reduce the tendency for calcium phosphate stones and pH greater than 6.0 may reduce the tendency for uric acid stone formation. Source: [facility]. Last revised 11-05-2017 us Francisca France NP LAB MICROBIOLOGY - GENERAL ORDERABLES Final Result Performing Organization Address City/[facility]/ZIP Co de Phone Number [facility] [place] [address] * POCT glucose (07/23/2020 4:56 PM CDT) Glucose, POC 169 70 - 199 mg/dL [facility] Blood specimen (specimen) 07/23/2020 4:56 PM CDT 07/23/2020 4:56 PM CDT us Leobardo Perez MD LAB POCT ORDERABLES - DEVICE Final Result Performing Organization Address City/[facility] Co de Phone Number [facility] Department [place] [address] * POCT glucose (07/23/2020 4:55 PM CDT) [facility] Glucose, POC 193 70 - 199 mg/dL [facility] Blood specimen (specimen) 07/23/2020 4:55 PM CDT 07/23/2020 4:55 PM CDT Leobardo Perez MD LAB POCT ORDERABLES - DEVICE Final Result Performing Organization Address [facility] [place] [address] * Antibody identification (07/23/2020 3:58 PM CDT) [facility] Antibody ID 3 Anti Little c [facility] Antibody ID 2 Anti-E [facility] Antibody ID 1 Antibody of Undetermined Specificity [facility] Blood specimen (specimen) 07/23/2020 3:58 PM CDT 07/23/2020 4:19 PM CDT Leobardo Perez MD LAB BLOOD BANK TEST ORDERABLE S Final Result Performing Organization Address [facility] [place] [address] * (ABNORMAL) Hemoglobin A1c (07/23/2020 3:58 PM CDT) [facility] Hgb A1C 5.8(H) 4.0 - 5.6 % [facility] Estimated Average Glucose 120 mg/dL [facility] Comment: The ADA recommends reporting an estimated Average Glucose (eAG) with all Hemoglobin A1c results using the equation derived from a study of 507 normal and diabetic adults. ??Minority populations were underrepresented and children were not included. ?? (Diabetes Care 31:2316-3023, 2008). ??The eAG is not equivalent to a fasting glucose. Blood specimen (specimen) 07/23/2020 3:58 PM CDT 07/23/2020 4:24 PM CDT us Leobardo Perez MD LAB BLOOD ORDERABLES Final Re sult [facility] Department [place] [address] * (ABNORMAL) Lipid panel (07/23/2020 3:58 PM CDT) Cholesterol 150 30 - 199 mg/dL [facility] Comment: Interpretive Data Ages < or [...] on 2018. Triglycerides 258(H) <=149 mg/dL [facility] Comment: Interpretive Data Ages < or [...] on 2018. HDL 38(L) >=40 mg/dL [facility] Comment: Interpretive Data Ages < or [...] on 2018. LDL, calculated 60 <=129 mg/dL [facility] Comment: Interpretive Data Ages < or = [...] on 2018. Non-HDL Cholesterol 112 mg/dL [facility] Comment: Interpretive Data Ages < or [...] last revised on 2018. Chol/HDL ratio 4 [facility] Blood specimen (specimen) 07/23/2020 3:58 PM CDT 07/23/2020 4:20 PM CDT Leobardo Perez MD LAB BLOOD ORDERABLES Final Re sult Performing Organization Address [facility] de Phone Number [facility] [place] [address] * Protime-INR (07/23/2020 3:58 PM CDT) PT 12.5 8.6 - 13.0 sec [facility] INR 1.2 0.8 - 1.2 [facility] Comment: Interpretive data Oral anticoagulant therapeutic ranges: Venous thromboembolism prophylaxis or treatment: 2.0-3.0 CARDIOLOGY Standard range: 2.0-3.0 High-intensity range: 2.5-3.5 Refer to indication-specific guidelines for appropriate target ranges for prosthetic heart valve replacement. Current interpretive data was last revised on 2019. Blood specimen (specimen) 07/23/2020 3:58 PM CDT 07/23/2020 4:29 PM CDT Francisca France LOADER MACHINE LAB BLOOD ORDERABLE S Final Result Performing Organization Address [facility] de Phone Number [facility] [place] [address] * aPTT (07/23/2020 3:58 PM CDT) aPTT 32 25 - 37 sec [facility] Comment: Interpretive data Heparin therapeutic range: 60-90 seconds Range based on correlation with therapeutic heparin activity range of 0.3-0.7 units/ml. Current interpretive data was last revised on 2019. Blood specimen (specimen) 07/23/2020 3:58 PM CDT 07/23/2020 4:29 PM CDT Francisca France LOADER MACHINE LAB BLOOD ORDERABLE S Final Result Performing Organization Address [facility] de Phone Number [facility] [place] [address] * (ABNORMAL) Type and screen (07/23/2020 3:58 PM CDT) [facility] Yaneth, indirect Positive(A) [facility] ABO Rh A Positive [facility] Blood specimen (specimen) 07/23/2020 3:58 PM CDT 07/23/2020 4:19 PM CDT Narrative [facility] - 07/23/2020 6:01 PM CDT Has the patient had Daratumumab or Isatuximab in the past 6 months?->Unknown Francisca France LOADER MACHINE LAB BLOOD BANK TEST ORDERABLES Final Result Performing Organization Address [facility] de Phone Number [facility] [place] [address] * (ABNORMAL) CBC without differential (07/23/2020 3:58 PM CDT) [facility] WBC 5.8 3.8 - 9.9 K/cumm [facility] Hgb 10.9(L) 11.9 - 15.5 g/dL [facility] Hct 35.7 35.6 - 45.5 % [facility] Plt 172 150 - 400 K/cumm [facility] MPV 10.0 9.1 - 12.3 fL [facility] RBC 5.63(H) 3.90 - 5.20 M/cumm [facility] MCV 63.4(L) 81.3 - 96.4 fL [facility] MCH 19.4(L) 27.1 - 33.3 pg [facility] MCHC 30.5(L) 32.3 - 35.7 g/dL [facility] RDW CV 15.3(H) 11.1 - 14.9 % [facility] RDW SD 33.2(L) 35.7 - 48.1 fL [facility] NRBC abs 0.00 0.00 - 0.01 K/cumm [facility] Blood specimen (specimen) 07/23/2020 3:58 PM CDT 07/23/2020 4:19 PM CDT Francisca France LOADER MACHINE LAB BLOOD ORDERABLE S Final Result Performing Organization Address City/[facility]/ZIP Co de Phone Number [facility] [place] [address] * Phosphorus (07/23/2020 3:58 PM CDT) Phosphorus, pl 3.3 2.3 - 4.5 mg/dL [facility] Blood specimen (specimen) 07/23/2020 3:58 PM CDT 07/23/2020 4:20 PM CDT Francisca France LOADER MACHINE LAB BLOOD ORDERABLE S Final Result [facility] [place] [address] * Magnesium (07/23/2020 3:58 PM CDT) Magnesium 1.9 1.4 - 2.5 mg/dL [facility] Blood specimen (specimen) 07/23/2020 3:58 PM CDT 07/23/2020 4:20 PM CDT Francisca France LOADER MACHINE LAB BLOOD ORDERABLE S Final Result [facility] [place] [address] * Comprehensive metabolic panel (07/23/2020 3:58 PM CDT) Sodium 139 135 - 145 mmol/L [facility] Potassium, pl 4.1 3.3 - 4.9 mmol/L [facility] Chloride 102 97 - 110 mmol/L [facility] CO2 31 22 - 32 mmol/L [facility] Anion gap 6 2 - 15 mmol/L [facility] BUN 19 8 - 25 mg/dL [facility] Creatinine 0.83 0.60 - 1.10 mg/dL [facility] Glucose 149 70 - 199 mg/dL [facility] Comment: Interpretive Data Fasting glucose >/= 126 [...] Calcium 9.0 8.5 - 10.3 mg/dL [facility] Bilirubin, total 0.4 0.1 - 1.2 mg/dL [facility] Protein, pl 7.0 6.5 - 8.5 g/dL [facility] Albumin 4.1 3.5 - 5.0 g/dL [facility] Alk phos 84 40 - 130 Units/L [facility] ALT 9 7 - 45 Units/L [facility] AST 26 10 - 45 Units/L [facility] Blood specimen (specimen) 07/23/2020 3:58 PM CDT 07/23/2020 4:20 PM CDT Francisca France LOADER MACHINE LAB BLOOD ORDERABLE S Final Result [facility] Department [place] [address] documented in this encounter Visit Diagnoses Diagnosis NPH (normal pressure hydrocephalus) (HCC)- Primary Idiopathic normal pressure hydrocephalus (INPH) NPH (normal pressure hydrocephalus) (HCC) Idiopathic normal pressure hydrocephalus (INPH) NPH (normal [...] mg, nebulization, Every 4 hours PRN (respiratory therapy manager), wheezing, shortness of breath, Starting on Thu07/24/20 [...] PO., Starting on Thu07/27/20 at 1147, Indications: constipationIndications:constip ation Given 07/28/2020 10:52 AM CDT 10 mg bupivacaine-EPINEPHrine (MARCAINE with EPI) 0.25 %-1:200,000 preservative free injection As needed, Starting on Thu07/27/20 at 0826, Intra-Op Given 07/27/2020 8:26 AM CDT 20 mL Surgical Site carbidopa-levodopa (SINEMET) 25-100 mg per tablet 4 tablet 4 tablet, oral, 3 times daily before meals, First dose on Thu07/23/20 at 1730, Indications: ParkinsonismIndications:Kaylie onism Given 07/28/2020 10:54 AM CDT 4 tablets Given 07/28/2020 7:52 AM CDT 4 tablets Given 07/27/2020 5:44 PM CDT 4 tablets docusate (COLACE) 10 mg/mL oral liquid 100 [...] Given 07/26/2020 9:10 AM CDT 12.5 mg ipratropium (ATROVENT) 0.02 % nebulizer solution 0.5 mg 0.5 mg, nebulization, Every 4 hours PRN (respiratory therapy manager), wheezing, shortness of breath, Starting on Thu07/24/20 at 1008 Given 07/24/2020 10:18 AM CDT 0.5 mg levothyroxine (SYNTHROID) tablet 100 mcg 100 mcg, oral, Daily, First dose on Thu07/24/20 at 0600, Administer on an empty stomach, preferably 30 minutes before breakfast. Take 4 hours apart from antacids, iron and calcium products. Given 07/28/2020 5:45 AM CDT 100 mcg Given 07/27/2020 5:12 AM CDT 100 mcg Given 07/26/2020 5:52 AM CDT 100 mcg losartan (COZAAR) tablet 100 mg 100 mg, oral, Daily, First dose on Thu07/23/20 at 1630 Given 07/28/2020 7:53 AM CDT 100 mg Given 07/27/2020 5:12 AM CDT 100 mg Given 07/26/2020 9:10 AM CDT 100 mg metoprolol XL (TOPROL-XL) extended release tablet 50 mg 50 mg, oral, Daily, First dose on Thu07/23/20 at 1630, Tablets that are scored may be split, but do not crush, chew, dissolve, open or otherwise manipulate tablet/capsule. Given 07/28/2020 7:52 AM CDT 50 m g Given 07/27/2020 5:11 AM CDT 50 mg [...] Given 07/26/2020 8:07 PM CDT 15 mg ondansetron (ZOFRAN) injection 4 [...] 8:08 PM CDT 5 mg sodium chloride 0.9 % irrigation As needed, Starting on Thu07/27/20 at 0827, Intra-Op Given 07/27/2020 8:27 AM CDT 1,000 mL Surgical Site sodium chloride 0.9% flush 0.5-20 mL 0.5-20 [...] 10:03 AM CDT 75 mL/hr 75 mL/hr thrombin-recombinant 5,000 unit solution As needed, Starting on Thu07/27/20 at 0826, Intra-Op Given 07/27/2020 8:26 AM CDT 5,000 Units Surgical Site venlafaxine XR (EFFEXOR-XR) extended release capsule 150 [...] 10 mg, oral, Daily, First dose on 07/23/20 at 2100 2006 (Given - Provider: Rochelle Murdock, SHAYLA) 0527 (DEC Hold - Provider: Automatic Transfer [...] Indications: Parkinsonism 0913 (Given - Provider: Alesia Tanisha Piper, RN)1202 (Given - Provider: Alesia Ness RN)1740 (Given - Provider: Alesia Ness RN) 0512 (Given - Provider: Rochelle Murdock RN)0527 (MAR Hold - Provider: Automatic Transfer Provider - Reason: Patient not available)0730 (Not Given - Provider: Rochelle Murdock RN - Reason: Other - Comment: given prior to surgery)1130 (Dose Auto Held - Provider: Automatic Transfer Provider)1138 (MAR Unhold - Provider: Automatic Transfer Provider)1744 (Given - Provider: Cat Hopper RN) 0752 (Given - Provider: Ofelia Reyes, SHAYLA)1054 (Given - Provider: Ofelia Reyes, SHAYLA) ceFAZolin (ANCEF) 2,000 mg/20 mL in sterile [...] (Given - Provider: Rochelle Murdock, SHAYLA) 05 (MAR Hold - Provider: Automatic Transfer Provider [...] 075 (Given - Provider: Ofelia Reyes, SHAYLA) gabapentin (NEURONTIN) tablet 600 mg 600 mg, [...] since Thu07/26/2020 at 1434 until manually unheld 0911 (Given - Provider: Alesia Ness RN)1434 (Held by Provider - Provider: Riya [...] available)1138 (MAR Unhold - Provider: Automatic Transfer Provider) 0545 [...] 0753 (Given - Provider: Ofelia Reyes, SHAYLA) magnesium citrate oral solution 296 mL (COMPLETED) [...] Transfer Provider) 075 (Given - Provider: Ofelia Reyes, SHAYLA) morphine ER (MS CONTIN) extended release tablet 15 mg 15 mg, oral, 2 times daily, First dose (after last modification) on Thu07/23/20 at 2230, Do not crush, chew, cut, dissolve, open or otherwise manipulate tablet/capsule. 0910 (Given - Provider: Alesia Ness RN)2006 (Given - Provider: Rochelle Murdock RN) 0527 (DEC Hold - Provider: Automatic Transfer Provider - Reason: Patient not available)0900 (Dose Auto Held - Provider: Automatic Transfer Provider)1138 (DEC Unhold - Provider: Automatic Transfer Provider)2007 (Given - Provider: Mckayla Rivas) 0753 (Given - Provider: Ofelia Reyes, SHAYLA) morphine ER (MS CONTIN) extended release tablet 15 mg (COMPLETED) 15 mg, oral, Once, On Thu07/27/20 at 0615, For 1 dose, Pre-Op, If previous po dose is > 12hrs Do not crush, chew, cut, dissolve, open or otherwise manipulate tablet/capsule., Indications: severe chronic pain requiring long-term opioid treatment 0726 (Given - Provider: Anuja Loo RN) sodium chloride 0.9% flush 0.5-20 mL 0.5-20 mL, intra-catheter, Every 8 hours scheduled, First dose on Thu07/23/20 at 1600, Flush volume based on line type and size. 0552 (Given - Provider: Rochelle Murdock, SHAYLA)1222 (Given - Provider: Alesia Ness, SHAYLA)2006 (Given - Provider: Rochelle Murdock RN) 0527 (MAR Hold - Provider: Automatic Transfer Provider - Reason: Patient not available)0600 (Dose Auto Held - Provider: Automatic Transfer Provider)1138 (MAR Unhold - Provider: Automatic Transfer Provider)1416 (Given - Provider: Cat Hopper RN)2009 (Given [...] (Not Given - Provider: Lyn De La O, SHAYLA - Reason: Other)1400 (Due) venlafaxine XR (EFFEXOR-XR) [...] 0753 (Given - Provider: Ofelia Reyes RN) Continuous Medication Order 07/26/2020 07/27/2020 07/28/2020 Lactated Ringer's (LR) infusion (CANCELED) 30 mL/hr, intravenous, Continuous, Starting on Thu07/27/20 at 0615, Pre-Op 0718 (Due)0727 (New Bag - Provider: Anuja Loo RN)0750 (New Bag - Provider: Shanelle Martin CRNA)0904 (Stopped - Provider: Shanelle Martin CRNA) sodium chloride 0.9% infusion 75 mL/hr, intravenous, Continuous, Starting on Thu07/27/20 at 0000, Once NPO 0014 (New Bag - Provider: Oscar Murdock RN)0600 (Stopped - Provider: Rochelle Murdock RN)0728 (Rate/Dose Verify - Provider: Shanelle Martin CRNA)0856 (Anesthesia Volume Adjustment - Provider: Shanelle Martin CRNA) sodium chloride 0.9% with potassium chloride 20 mEq/L infusion (premix) 75 mL/hr, intravenous, Continuous, Starting on Thu07/27/20 at 1000, Phase I & Post-op Floor, Discontinue when tolerating PO (500 mL in 8 hours). 1003 (New Bag - Provider: Usha Meyer RN)2245 (Stopped - Provider: Rochelle Murdock RN) PRN Medication Order 07/26/2020 07/27/2020 07/28/2020 acetaminophen (TYLENOL) tablet 650 mg 650 mg, oral, Every 4 hours PRN, 1st line for pain, Starting on 07/23/20 at 1524, Indications: Pain 1221 (Given - Provider: Alesia Ness RN) 0527 (DEC Hold - Provider: Automatic Transfer Provider - Reason: Patient not available)1138 (DEC Unhold - Provider: Automatic Transfer Provider)1201 (Given - Provider: Cat Hopper RN)1604 (Given - Provider: Cat Hopper RN) 0011 (Given - Provider: Lyn De La O, SHAYLA)0544 (Given - Provider: Lyn De La O, SHAYLA)1224 (Given - Provider: Ofelia Reyse, SHAYLA) albuterol 2.5 mg/0.5 mL nebulizer solution 2.5 mg(Linked Group 2) 2.5 mg, nebulization, Every 4 hours PRN (respiratory therapy manager), wheezing, shortness of breath, Starting on Thu07/24/20 at 1008 0527 (DEC Hold - Provider: Automatic Transfer Provider - Reason: Patient not available)1138 (DEC Unhold - Provider: Automatic Transfer Provider) benzocaine-menthoL (CHLORASEPTIC) lozenge 1 lozenge 1 lozenge, mouth/throat, Every 2 hours PRN, sore throat, Starting on Thu07/27/20 at 1636 1851 (Given - Provider: Cat Hopper RN) 1218 (Given - Provider: Ofelia Reyes, SHAYLA) bisacodyL (DULCOLAX) suppository 10 mg 10 mg, rectal, Daily PRN, constipation, If no results 24 hours after polyethylene glycol (MIRALAX). May give bisacodyl tablet if tolerating PO., Starting on Thu07/27/20 at 1147, Indications: constipation 1052 (Given - Provider: Ofelia Reyes, SHAYLA) bisacodyl EC (DULCOLAX EC) tablet 10 mg [...] mg, nebulization, Every 4 hours PRN (respiratory therapy manager), wheezing, shortness of breath, Starting on Thu07/24/20 at 1008 0527 (DEC Hold - Provider: Automatic Transfer Provider - Reason: Patient not available)1138 ([facility] Unhold - Provider: Automatic Transfer Provider) ondansetron (ZOFRAN) injection 4 mg 4 mg, intravenous, Administer over 2 Minutes, Every 6 hours PRN, nausea, vomiting, Starting on Thu07/23/20 at 1521, Proceed to trimethobenzamide if no relief within 30 minutes. , Indications: Nausea and Vomiting 0911 (Given - Provider: Alesia Ness RN)1740 (Given - Provider: Alesia Ness RN) 0527 ([facility] Hold - Provider: Automatic Transfer Provider - Reason: Patient not available)0902 (Given - Provider: Shanelle Martin CRNA)1138 ([facility] Unhold - Provider: Automatic Transfer Provider) oxyCODONE (ROXICODONE) tablet 5 mg (CANCELED) 5 mg, oral, Every 4 hours PRN, 2nd line for pain, Starting on Thu07/25/20 at 0247, Indications: Pain 0014 (Given - Provider: Rochelle Murdock RN)0527 ([facility] Hold - Provider: Automatic Transfer Provider - Reason: Patient not available)1138 ([facility] Unhold - Provider: Automatic Transfer Provider) oxyCODONE (ROXICODONE) tablet 5 mg 5 mg, oral, Every 4 hours PRN, 2nd line for pain, Starting on Thu07/27/20 at 1147, Indications: Pain 1201 (Given - Provider: Cat Hopper, SHAYLA)1604 (Given - Provider: Cat Hopper RN)2008 (Given - Provider: Mckayla Rivas) 0011 (Given - Provider: Lyn De La O, SHAYLA)0544 (Given - Provider: Lyn De La O, SHAYLA) polyethylene glycol (MIRALAX) packet 17 g 17 [...] mg, nebulization, Every 4 hours PRN (respiratory therapy manager), wheezing, shortness of breath, Starting on Thu07/24/20 at 1008 And ipratropium (ATROVENT) 0.02 % nebulizer solution 0.5 mgJump to med 0.5 mg, nebulization, Every 4 hours PRN (respiratory therapy manager), wheezing, shortness of breath, Starting on Thu07/24/20 at 1008 documented in this encounter Orders Medications Ordered That Tobi ht Not Have Been Administered Count Last Ordered Date First Ordered Date bisacodyL (DULCOLAX) suppository 10 mg 2 07/27/2020 lactulose 0.67 gram/mL oral solution 20 g 1 07/28/2020 magnesium citrate oral solution 296 mL 1 benzocaine-menthoL (CHLORASE PTIC) lozenge 1 lozenge 1 07/27/2020 bisacodyl EC (DULCOLAX EC) tablet 10 mg 1 1 ceFAZolin (ANCEF) 2,000 mg/2 0 mL in sterile water (premix) 2,000 mg 3 07/27/2020 07/24/20 20 diphenhydrAMINE (BENADRYL) i njection 12.5 mg 1 07/27/2020 fentaNYL (SUBLIMAZE) preserv ative free injection 50 mcg 1 07/27/2020 gabapentin (NEURONTIN) capsule 300 mg 1 11/2019 HYDROmorphone (DILAUDID) injection 0.4 mg 1 07/27/2020 Lactated Ringer's (LR) infusion 1 0 lidocaine PF (XYLOCAINE) 10 mg/mL (1 %) preservative free injection 2-10 mg 1 07/27/2020 meperidine (DEMEROL) preserv ative free injection 12.5 mg 1 07/27/2020 morphine ER (MS CONTIN) exte nded release tablet 15 mg 3 07/27/2020 07/23/2020 naloxone (NARCAN) 0.4 mg/mL injection 0.04-0.4 mg 1 07/27/2020 ondansetron (ZOFRAN) injection 4 mg 2 07/2707/23/2020 oxyCODONE (ROXICODONE) tablet 5 mg 2 201907/25/2020 polyethylene glycol (MIRALAX) packet 17 g 1 07/27/2020 prochlorperazine (COMPAZINE) injection 10 mg 2 07/27/2020 07/23/2020 sodium chloride 0.9% flush 0.5-20 mL 5 10/11/201907/23/2020 sodium chloride 0.9% with po tassium chloride 20 mEq/L infusion (premix) 1 07/27/2020 sodium chloride 0.9% infusion 1 07/26/2020 albuterol 2.5 mg/0.5 mL nebu lizer solution 2.5 mg 1 07/24/2020 famotidine (PEPCID) tablet 20 mg 1 07/24/20 20 heparin 5,000 unit/mL inject ion 5,000 Units 1 07/24/2020 HYDROmorphone (DILAUDID) injection 0.2 mg 1 07/24/2020 ipratropium (ATROVENT) 0.02 % nebulizer solution 0.5 mg 1 07/24/2020 lidocaine (XYLOCAINE) 10 mg/ mL (1 %) injection 100 mg 1 07/24/2020 lidocaine (XYLOCAINE) 20 mg/ mL (2 %) preservative free injection - ADS Override Pull 2 07/24/2020 lidocaine PF (XYLOCAINE) 10 mg/mL (1 %) preservative free injection 1 07/24/2020 lidocaine PF (XYLOCAINE) 10 mg/mL (1 %) preservative free injection - ADS Override Pull 1 07/24/2020 acetaminophen (TYLENOL) tablet 650 mg 1 atorvastatin (LIPITOR) tablet 10 mg 1 07/23 carbidopa-levodopa (SINEMET) 25-100 mg per tablet 4 tablet 1 07/23/2020 docusate (COLACE) 10 mg/mL o ral liquid 100 mg 1 07/23/2020 docusate sodium (COLACE) capsule 100 mg 1 0 07/23/2020 gabapentin (NEURONTIN) tablet 600 mg 1 06/27 hydroCHLOROthiazide (HYDRODI URIL) tablet 12.5 mg 1 07/23/2020 levothyroxine (SYNTHROID) tablet 100 mcg 1 07/23/2020 losartan (COZAAR) tablet 100 mg 1 0 metoprolol XL (TOPROL-XL) ex tended release tablet 50 mg 1 07/23/2020 venlafaxine XR (EFFEXOR-XR) extended release capsule 150 mg 1 07/23/2020 venlafaxine XR (EFFEXOR-XR) extended [...] 07/25/2020 documented in this encounter Care Teams Yeast Supervisor Relationship Specialty Start Date End Date Cecilia Lim MD PCP - General Family Medicine 12/21/19 12/30/20 Rodolfo Mantilla MD [address] [place] [address] Consulting Physician Neurology 12/21/19 documented as of this encounter
--- OUTSIDE RECORDS SUMMARY | 2024-10-31 03:51 | XMS_ITS | Encounter Summary ---
Author Organization [facility] Address [address] [place] [address] Phone Care Team Providers Care Office Rep Name Role Phone Cecilia Lim MD Primary Care Provider Rodolfo Mantilla MD Unavailable Encounter Details Date Type Department Care Team (Late st Contact Info) Description 05/10/2020 Telephone [facility] Scheduling [address] [place] [address] Nerissa Vernon BS Social History Tobacco Use Types Packs/Day Years Used Date Smoking Tobacco: Former Cigarettes Smokeless Tobacco: Never Alcohol Use Standard Drinks/Week Comments Yes 1 (1 standard drink = 0.6 oz pur e alcohol) Comments Unknown Sex and Gender Information Value Date Recorded Sex Assigned at Not on file Legal Sex Female 1:04 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 Thank you, Nerissa ----- Message ----- From: Celsa Robledo Sent: 05/08/2020 4:08 PM CDT To: Jean Pierre Garcia t Scheduling Pool, # Subject: Appt Tomorrow 05/09/20 Patient called the Telemed Consent Help Desk and would like to talk to the office or schedulers to have her appointment for tomorrow changed to a phone call. She really wants to come in and see Shruthi. Patient was not sure if Shruthi needed to do some type of exam. She is not tech savvy and does not want a telemed/zoom appointment. Please call patient at [phone]. Her appointment is tomorrow05/09 @ 3:30pm with Shruthi. Thank you, nett documented in this encounter Plan of Treatment Not on file documented as of this encounter Visit Diagnoses Not on filedocumented in this encounter Care Teams Office Rep Relationship Specialty Start Date End Date Cecilia Lim MD PCP - General Family Medicine 12/21/19 12/30/20 Rodolfo Mantilla MD [address] [place] [address] Consulting Physician Neurology 12/21/19 documented as of this encounter
--- OUTSIDE RECORDS SUMMARY | 2024-10-31 03:51 | XMS_ITS | Encounter Summary ---
Author Organization [facility] Address [address] [place] [address] Phone Care Team Providers Care Shift Nurse Manager Name Role Phone Cecilia Lim MD Primary Care Provider Rodolfo Mantilla MD Unavailable Reason for Referral * Diagnostic Imaging (Routine) - Closed Specialty Diagnoses / Procedures Referred By Devin laboy Referred To Contact Radiology Diagnoses NPH (normal pressure hydrocephalus) (HCC) Procedures CT Head WO Contrast Leobardo Perez MD Phone: tel: fax: [address] [phone] Referral ID Status Reason Start Date Expiration Date Visits Re quested Visits Authorized [id number] Closed 07/29/2020 08/28/2021 1 1 Encounter Details Date Type Department Care Team (Late st Contact Info) Description 07/29/2020 Orders Only [facility] Neurosurgery [address] [facility] ([place], [place]) [facility] [address]th [place] [address] [place] [address] Leobardo Perez MD [address] [place] [address] NPH (normal pressure hydrocephalus) (CMS/HCC) [...] on file Legal Sex Female 1:04 AM EFFERVESCENT SALTS COMPOUNDER Gender Identity Not on file Sexual Orientation Not on file Occupation Industry Job Start Date Job End Date retired Not on file Not on file Not on file documented as of this encounter Progress Notes * Abbey Moon RMA - 07/29/2020 7:52 AM CDT error documented in this encounter Plan of Treatment Not on file documented as of this encounter Results * CT Head WO Contrast (08/28/2020 12:08 PM EFFERVESCENT SALTS COMPOUNDER) Anatomical Region Laterality Modality Head and Neck N/A Computed Tomogra phy 08/28/2020 12:2 1 PM EFFERVESCENT SALTS COMPOUNDER Impressions 08/28/2020 12:21 PM EFFERVESCENT SALTS COMPOUNDER 1. ??Ventriculomegaly, stable following placement of right posterior parietal approach ventricular catheter. Electronically signed by: Jayro Romero M.D. Narrative 08/28/2020 12:21 PM EFFERVESCENT SALTS COMPOUNDER EXAMINATION: CT head without contrast HISTORY: Patient [...] acute fractures are identified. Procedure Note Jayro Romero MD - 08/28/2020 EXAMINATION: CT head without [...] (INPH) documented in this encounter Care Teams Shift Nurse Manager Relationship Specialty Start Date End Date Cecilia Lim MD PCP - General Family Medicine 12/21/19 12/30/20 Rodolfo Mantilla MD [address] [place] [address] Consulting Physician Neurology 12/21/19 documented as of this encounter
--- OUTSIDE RECORDS SUMMARY | 2024-10-31 03:51 | XMS_ITS | Encounter Summary ---
Author Organization [facility] Address [address] [place] [address] Phone Care Team Providers Care Public Speaker Name Role Phone Cecilia Lim MD Primary Care Provider Rodolfo Mantilla MD Unavailable Encounter Details Date Type Department Care Team (Late st Contact Info) Description 01/05/[address] [facility] Neurosurgery [address] Advanced Medicine 6th [place] [address] [place] [address] Leobardo Perez MD [address] [place] [address] Social History Tobacco Use Types Packs/Day Years Used Date Smoking Tobacco: Former Smokeless Tobacco: Never Alcohol Use Standard Drinks/Week Comments Yes 1 (1 standard drink = 0.6 oz pur e alcohol) Comments Unknown Sex and Gender Information Value Date Recorded Sex Assigned at Not on file Legal Sex Female 1:04 AM DISPATCHER RELAY Gender Identity Not on file Sexual Orientation Not on file Occupation Industry Job Start Date Job End Date retired Not on file Not on file Not on file documented as of this encounter Miscellaneous Notes * Telephone Encounter - Lora Owens, A - 01/06/2020 8:40 AM CDT Patient is scheduled for 01/31/2020 at 11:[address] Perez. I have left 2 voice mails with apt info, mailed info to pt home address * Telephone Encounter - Lora Owens RMA - 01/05/2020 3:45 PM CDT ----- Message from PIERRE Merrill sent at 01/05/2020 3:29 PM CDT ----- Regarding: RE: IOV for Dr. Perez ----- Message ----- From: Candice Hill RN Sent: 01/02/2020 1:21 PM CDT To: [facility] Adult Follow-Up Appointment Pool Subject: FW: IOV for Dr. Perez Can you get her in in the next couple of clinics to discuss lumbar drain trail for NPH ----- Message ----- From: My Conrad CNA Sent: 01/02/2020 12:00 PM CDT To: [facility] Perez Pool Subject: FW: IOV for Dr. Perez Seen pt in 08/2018 for NPH, when are you wanting to schedule for f/u? ----- Message ----- From: Kelli Mckeon CMA Sent: 12/30/2019 9:20 AM CDT To: [facility] Adult Scheduling Pool Subject: IOV for Dr. Ana Mantilla sent a referral through [employer] for this patient to see Dr. Perez for NPH on 12/21/19. The patient called our office and said she hasn't heard from anyone. Can you you please call her withan appointment. Let me know if you need anything else. Thanks, Kelli documented in this encounter Plan of Treatment Not on file documented as of this encounter Visit Diagnoses Not on filedocumented in this encounter Care Teams Public Speaker Relationship Specialty Start Date End Date Cecilia Lim MD PCP - General Family Medicine 2/26/20 3/7/21 Rodolfo Mantilla MD [address] [place] [id number] Consulting Physician Neurology 12/21/19 documented as of this encounter
--- OUTSIDE RECORDS SUMMARY | 2024-10-31 03:51 | XMS_ITS | Encounter Summary ---
Author Organization [facility] Address [address] [place] [address] Phone Care Team Providers Care Concession Attendant Name Role Phone Cecilia Lim MD Primary Care Provider Rodolfo Mantilla MD Unavailable Encounter Details Date Type Department Care Team (Late st Contact Info) Description 07/12/2020 Telephone [facility] Movement Disorders [address] [place] [address] Rodolfo Mantilla MD [address] [place] [address] Social History Tobacco Use Types Packs/Day Years Used Date Smoking Tobacco: Former Cigarettes Smokeless Tobacco: Never Alcohol Use Standard Drinks/Week Comments Yes 1 (1 standard drink = 0.6 oz pur e alcohol) Comments Unknown Sex and Gender Information Value Date Recorded Sex Assigned at Not on file 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 30 tablet 11 07/23/2020 0 documented in this encounter Miscellaneous Notes * Telephone Encounter - Sarah Breaux RN - 07/23/2020 2:19 PM CDT I spoke with her. She said while being evaluated in the hospital she was asked about a sleeping aid. She no longer takes the trazodone since it was not effective. I let her know Emerita attempted to reach her with the recommendation for mirtazapine and we reviewed this medication. I let her know not to start this until after her study and ask the NS and neuro team on discharge when she can start this so it does not sway her response from her NPH eval. She understood and was appreciative. The rx was sent to her pharmacy. * Telephone Encounter - Lori Olivares - 07/23/2020 2:12 PM CDT Pt is requesting a call back regarding the sleep medication. She also states she has been admitted to the hospital for the study. * Telephone Encounter - Rosa Cadet RN - 07/13/2020 2:43 PM CDT I attempted to call about starting the mirtazapine. I left a message asking to call back when able./arw * Telephone Encounter - Rodolfo Mantilla MD - 07/12/2020 9:03 PM CDT She is ready for NO evaluation * Telephone Encounter - Rodolfo Mantilla MD - 07/12/2020 9:02 PM CDT Yes they are. Has she already seen a neurosurgeon? * Telephone Encounter - Rodolfo Mantilla MD - 07/12/2020 9:02 PM CDT Yes start mirtazapine 15 mg at bedtime and increase to 30 mg in 2 weeks. We can stop trazodone whenshe starts 30 mg. * Telephone Encounter - Sarah Breaux RN - 07/12/2020 2:41 PM CDT I called her back. She is still having a hard time sleeping. She is taking trazodone 100 mg and it is not helping at all. She is only getting a few hours of sleep. I let her know Dr. Mantilla may want otswitch to a med called mirtazapine, but that I will update and let her know. She also wanted to know if NPH evals are being done inpatient now. Let her know I will also ask about this and we will call her back. Dr. Mantilla-Do you know if the NPH evaluations are being done inpatient now? Also did you want to switch to mirtazapine (per 06/04 phone note)? * Telephone Encounter - Lori Olivares - 07/12/2020 12:17 PM CDT (MU) Pt is requesting a call back to discuss her sleep problems. Call back #[phone] Lori Gutierrez documented in this encounter Plan of Treatment Not on file documented as of this encounter Visit Diagnoses Not on filedocumented in this encounter Discontinued Medications Medication Sig Discontinue Reason Start Date End Da te traZODone (DESYREL) 100 mg tablet Take 1/2 tab at bedtime and increase to 1 tab at bedtime. 05/09/2020 07/23/2020 documented as of this encounter Care Teams Concession Attendant Relationship Specialty Start Date End Date Cecilia Lim MD PCP - General Family Medicine 12/21/19 12/30/20 Rodolfo Mantilla MD [address] [place] [address] Consulting Physician Neurology 12/21/19 documented as of this encounter
--- OUTSIDE RECORDS SUMMARY | 2024-10-31 03:52 | XMS_ITS | Encounter Summary ---
Author Organization [facility] Address [address] [place] [address] Care Team Providers Care Aircraft Machinist Name Role Phone Willy Cummings MD Primary Care Provider [phone]- [phone] Encounter Details Date Type Department Care Team (Latest Contact Info) Description 10/12/2018 5:21 PM CRUISE DIRECTOR - 10/12/2018 11:59 PM CRUISE DIRECTOR Hospital Encounter [facility] [address] [place] [address] Discharge Disposition: Discharge to home or self care Social History Tobacco Use Types Packs/Day Years Used Date Smoking Tobacco: Former Smokeless Tobacco: Never Alcohol Use Standard Drinks/Week Comments Yes 1 (1 standard drink = 0.6 oz pur e alcohol) Comments Unknown Sex and Gender Information Value Date Recorded Sex Assigned at Not on file Legal Sex Female 1:04 AM CRUISE DIRECTOR Gender Identity Not on file Sexual Orientation Not on file Occupation Industry Job Start Date Job End Date retired Not on file Not on file Not on file documented as of this encounter Medications at Time of Discharge levothyroxine (SYNTHROID, LEVOTHROID) 100 mcg tablet Take 100 mcg by mouth daily. 5 08/08/2018 metoprolol XL (TOPROL-XL) 50 mg 24 hr tablet Take 50 mg by mouth daily. atorvastatin (LIPITOR) 10 mg tablet Take 10 mg by mouth daily. 1 citalopram (CeleXA) 40 mg tablet TAKE 1 TABLET BY MOUTH EVERY DAY. DOSE INCREASE 1 08/18/2018 9 cyclobenzaprine (FLEXERIL) 5 mg tablet Take by mouth 3 (three) times a day as needed. 1 09/12/2018 9 FLUZONE HIGH-DOSE 2017-, PF, 180 mcg/0.5 mL syringe TO BE ADMINISTERED BY PHARMACIST FOR IMMUNIZATION 0 08/17/2018 9 gabapentin (NEURONTIN) 300 mg capsule Take 600 mg by mouth 2 (two) times a day 2 hydroCHLOROthiaz laila (HYDRODIURIL) 12.5 mg tablet Take 12.5 mg by mouth daily. 3 08/08/2018 9 hydroCHLOROthiaz laila (MICROZIDE) 12.5 mg capsule Take 12.5 mg by mouth daily. 9 HYDROcodone-acet aminophen (NORCO) 7.5-325 mg per tabletIndication s:Pain TAKE 1 TABLET BY MOUTH 3 TIMES A DAY NEEDED FOR 30 DAYS 0 08/25/2018 9 HYDROcodone-acet aminophen 2.5-325 mg tablet Take 1 tablet by mouth 3 (three) times a day as needed. 9 levothyroxine sodium (TIROSINT) 100 mcg capsule Take 100 mcg by mouth daily. 9 losartan (COZAAR) 50 mg tablet Take 50 mg by mouth 2 (two) times a day 0 oxyCODONE-acetam inophen (PERCOCET) 5-325 mg per tabletIndication s:Pain TAKE 1 TABLET EVERY 4 HOURS NEEDED FOR PAIN. 05/11/2017 9 traMADol (ULTRAM) 50 mg tablet TAKE 1 TO 2 TABLETS EVERY 4 TO 6 HOURS NEEDED FOR PAIN. 05/21/2017 9 warfarin (COUMADIN) 2 mg tablet take 2.5 tabs(total dose=5mg)orally day before surgery at noon,after surgery take your coumadin as directed in the hospital daily@5 pm 06/19/2017 9 documented as of this encounter Discharge Disposition Disposition Code Departure Means Destination Discharge to home or self care documented in this encounter Plan of Treatment Not on file documented as of this encounter Procedures Procedure Name Priority Date/Time Associated Diagnosis Comments NM OUTSIDE REFERENCE Routine 10/12/2018 5:21 PM CRUISE DIRECTOR Diagnosis unknown documented in this encounter Results * NM Outside Reference (10/12/2018 5:21 PM CRUISE DIRECTOR) Impressions [facility] - 10/12/2018 5:21 PM CRUISE DIRECTOR These images are for Reference purposes only and have not been reviewed by [facility] Radiology. ??There will be no report generated by a [facility] Radiologist. Narrative [facility] - 10/12/2018 5:21 PM CRUISE DIRECTOR EXAMINATION: ??Images For Reference Purposes Only us Leobardo Perez MD IMG NM PROCEDURES Final Resul t [facility] documented in this encounter Visit Diagnoses Not on filedocumented in this encounter Care Teams Aircraft Machinist Relationship Specialty Start Date End Date Willy Cummings MD [address] [place] [address] PCP - General 08/06/17 12/20/19 documented as of this encounter
--- OUTSIDE RECORDS SUMMARY | 2024-10-31 03:52 | XMS_ITS | Encounter Summary ---
Author Organization [facility] Address [address] [place] [address] Care Team Providers Care Sales Promoter Name Role Phone Brittny Salazar MD Primary Care Provider [phone] Encounter Details Date Type Department Care Team (Late st Contact Info) Description 05/26/2017 Orders Only [facility] [address] [address] Vj Anderson MD [address] [facility] [address] [place] [address] Social History Tobacco Use Types Packs/Day Years Used Date Smoking Tobacco: Never Comments Unknown Sex and Gender Information Value Date Recorded Sex Assigned at Not on file Legal Sex Female 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
--- OUTSIDE RECORDS SUMMARY | 2024-10-31 03:52 | XMS_ITS | Encounter Summary ---
Author Organization [facility] Address [address] [place] [address] Phone Care Team Providers Care Garage Construction Equipment Mechanic Name Role Phone Willy Cummings MD Primary Care Provider [phone]- [phone] Encounter Details Date Type Department Care Team (Late st Contact Info) Description 06/10/2019 Orders Only [facility] Movement Disorders [address] [place] [address] [place] [id number] Shruthi Rivero, CITY DISTRIBUTION CLERK [address] [place], [place] [id number] Social History Tobacco Use Types Packs/Day Years Used Date Smoking Tobacco: Former Smokeless Tobacco: Never Alcohol Use Standard Drinks/Week Comments Yes 1 (1 standard drink = 0.6 oz pur e alcohol) Comments Unknown Sex and Gender Information Value Date Recorded Sex Assigned at Not on file 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
--- OUTSIDE RECORDS SUMMARY | 2024-10-31 03:52 | XMS_ITS | Encounter Summary ---
Author Organization [facility] Address [address] [place] [address] Phone Care Team Providers Care Zipper Setter Lockstitch Name Role Phone Willy Cummings MD Primary Care Provider [phone] Reason for Referral * Diagnostic Imaging (Routine) - Closed Specialty Diagnoses / Procedures Referred By Contac t Referred To Contact Radiology Diagnoses Cerebral ventriculomegaly Procedures MRI Brain and Neuro 3D W WO Contrast MRI Brain W WO Contrast Leobardo Perez MD Phone: tel: fax: [address] [phone] Referral ID Status Reason Start Date Expiration Date Visits Re quested Visits Authorized [id number] Closed 10/12/2018 04/22/2020 1 1 RATORY COURIER * Diagnostic Imaging (Routine) - Closed Specialty Diagnoses / Procedures Referred By Contac t Referred To Contact Radiology Diagnoses Spinal stenosis of lumbar region, unspecified whether neurogenic claudication present Procedures MRI Lumbar Spine WO Contrast Leobardo Perez MD Phone: tel: fax: [address] [phone] Referral ID Status Reason Start Date Expiration Date Visits Re quested Visits Authorized [id number] Closed 10/12/2018 04/22/2020 1 1 RATORY COURIER * Diagnostic Imaging (Routine) - Closed Specialty Diagnoses / Procedures Referred By Devin laboy Referred To Contact Radiology Diagnoses Cervical spinal stenosis Procedures MRI Cervical Spine WO Contrast Leobardo Perez MD Phone: tel: fax: [address] [phone] Referral ID Status Reason Start Date Expiration Date Visits Re quested Visits Authorized [id number] Closed 10/12/2018 04/22/2020 1 1 RATORY COURIER Reason for Visit * Consultation (Routine) - Closed Specialty Diagnoses / Procedures Referred By Devin laboy Referred To Contact Neurosurgery Diagnoses NPH (normal pressure hydrocephalus) ([facility]) Willy Cummings MD Phone: tel: fax: [facility] Neurosurgery [address] [place] [address] 6th [place] [address] [place] [address] Phone: tel: fax: Referral ID Status Reason Start Date Expiration Date V isits Requested Visits Authorized [id number] Closed Specialty Services Required 09/03/2018 03/14/2020 1 1 Encounter Details Date Type Department Care Team (Late st Contact Info) Description 10/12/2018 10:35 AM LABORATORY COURIER Office Visit [facility] Neurosurgery [address] [place] [address] 6th [place] [address] [place] [address] Leobardo Perez MD [address] [address] [place] [address] Cervical spinal stenosis (Primary Dx); NPH (normal pressure hydrocephalus); Cerebral ventriculomegaly; Spinal stenosis of lumbar region, unspecified whether neurogenic claudication present Social History Tobacco Use Types Packs/Day Years Used Date Smoking Tobacco: Former Smokeless Tobacco: Never Alcohol Use Standard Drinks/Week Comments Yes 1 (1 standard drink = 0.6 oz pur e alcohol) Comments Unknown Sex and Gender Information Value Date Recorded Sex Assigned at Not on file Legal Sex Female 1:04 AM LABORATORY COURIER Gender Identity Not on file Sexual Orientation Not on file Occupation Industry Job Start Date Job End Date retired Not on file Not on file Not on file documented as of this encounter Last Filed Vital Signs Vital Sign Reading Time Taken Comments Blood Pressure 176/86 10/12/2018 10:42 AM LABORATORY COURIER Pulse 72 10/12/2018 10:42 AM LABORATORY COURIER Temperature - - Respiratory Rate - - Oxygen Saturation - - Inhaled Oxygen Concentration - - Weight 90.7 kg (200 lb) 10/12/2018 10:42 AM LABORATORY COURIER Height 163.8 cm (5' 4.5 ) 10/12/2018 10:42 AM CS T Body Mass Index 33.8 10/12/2018 10:42 AM LABORATORY COURIER documented in this encounter Progress Notes * Leobardo Perez MD - 10/12/2018 10:35 AM CST Patient Name: JONNIE ALEX Medical Record Number (MRN): [id number] Date of (): 1945 Encounter Date: 10/12/2018 PRIMARY CARE PROVIDER: Willy Cummings MD REFERRING PROVIDER: Willy Cummings MD CHIEF COMPLAINT Ataxia HISTORY OF THE PRESENT ILLNESS Jonnie Alex is a 72-year-old woman who is complained of difficulty walking over the past year. She states that her gait has become progressively slowed and imbalanced and she has had a few falls during that time. She denies any neuro cognitive problems such as memory loss, difficulty thinking or performing complex tasks. She is accompanied by her today he was not noticed any significant memory loss or cognitive dysfunction. She occasionally has some urge incontinence but has not in voluntarily lost any urine. She has a history of spinal stenosis post in the cervical and lumbar region. She has chronic low back pain and neck pain and sees pain management for this. She has a history of bilateral knee replacements and most recently had a knee replacement 1 year ago. She denies anyheadaches, blurry vision, double vision. She denies any focal weakness or numbness. She has a sister with normal pressure hydrocephalus who underwent a CLAM TREADER shunt. Allergies Allergen Reactions ??? Celebrex [Celecoxib] Stomach upset ??? Sulfa (Sulfonamide Antibiotics) Other (See comments) and Unknown Reaction: Current Outpatient Prescriptions on File Prior to Visit Medication Sig Dispense Refill ??? atorvastatin (LIPITOR) 10 mg tablet Take 10 mg by mouth daily. ??? citalopram (CeleXA) 40 mg tablet TAKE 1 TABLET BY MOUTH EVERY DAY. DOSE INCREASE 1 ??? cyclobenzaprine (FLEXERIL) 5 mg tablet Take by mouth 3 (three) times a day as needed. 1 ??? gabapentin (NEURONTIN) 300 mg capsule Take 300 mg by mouth 4 (four) times a day. ??? hydroCHLOROthiazide (HYDRODIURIL) 12.5 mg tablet Take 12.5 mg by mouth daily. 3 ??? HYDROcodone-acetaminophen (NORCO) 7.5-325 mg per tablet TAKE 1 TABLET BY MOUTH 3 TIMES A DAY ASNEEDED FOR 30 DAYS 0 ??? HYDROcodone-acetaminophen 2.5-325 mg tablet Take 1 tablet by mouth 3 (three) times a day as needed. ??? levothyroxine (SYNTHROID, LEVOTHROID) 100 mcg tablet Take 100 mcg by mouth daily. 5 ??? losartan (COZAAR) 50 mg tablet Take 50 mg by mouth daily. ??? metoprolol XL (TOPROL-XL) 50 mg 24 hr tablet Take 50 mg by mouth daily. ??? oxyCODONE-acetaminophen (PERCOCET) 5-325 mg per tablet TAKE 1 TABLET EVERY 4 HOURS NEEDED FOR PAIN. ??? FLUZONE HIGH-DOSE 2017-, PF, 180 mcg/0.5 mL syringe TO BE ADMINISTERED BY PHARMACIST FOR IMMUNIZATION 0 ??? hydroCHLOROthiazide (MICROZIDE) 12.5 mg capsule Take 12.5 mg by mouth daily. ??? levothyroxine sodium (TIROSINT) 100 mcg capsule Take 100 mcg by mouth daily. ??? traMADol (ULTRAM) 50 mg tablet TAKE 1 TO 2 TABLETS EVERY 4 TO 6 HOURS NEEDED FOR PAIN. ??? warfarin (COUMADIN) 2 mg tablet take 2.5 tabs(total dose=5mg)orally day before surgery at noon,after surgery take your coumadin as directed in the hospital daily@5 pm ??? [DISCONTINUED] citalopram (CeleXA) 20 mg tablet Take 20 mg by mouth daily. ??? [DISCONTINUED] gabapentin (NEURONTIN) 300 mg capsule TAKE ONE CAPSULE 3 TIMES A DAY ??? [DISCONTINUED] mupirocin (BACTROBAN) 2 % ointment Appy to each nostril with a cotton swab twicedaily 5 days prior to surgery No current facility-administered medications on file prior to visit. There is no problem list on file for this patient. Past Medical History: Diagnosis Date ??? Anemia [...] Relation Age of Onset ??? Diabetes Son Social History Social History ??? Marital status: Spouse name: N/A ??? Number of children: N/A ??? Years of education: N/A Occupational History ??? retired Social History Main Topics ??? Smoking status: Former Smoker ??? Smokeless tobacco: Never Used ??? Alcohol use 0.6 oz/week 1 Glasses of wine per week ??? Drug use: No ??? Sexual activity: Not on file Other Topics Concern ??? Not on file Social History Narrative ??? No narrative on file VITAL SIGNS Vitals: 10/12/18 1042 BP: (!) 176/86 Pulse: 72 Weight: 90.7 kg (200 lb) Height: 163.8 cm (5' 4.5 ) REVIEW OF SYSTEMS Constitutional: negative for anorexia, appetite change, chills, fatigue, fevers, malaise, night sweats, sleep disturbance, weight gain and weight loss Eyes: negative for double vision, visual disturbance and visual loss Ears, nose, mouth, throat, and face: negative for ear drainage, hearing loss, loss of smell or taste, nasal congestion, tinnitus and vertigo Cardiovascular: negative for chest pain, irregular heart beat, palpitations and syncope Genitourinary: negative for change in bladder habits. Hematologic/lymphatic: negative for anemia, bleeding and easy bruising Neurological: Ataxia per the HPI negative for confusion, coordination problems, dizziness, gait, headaches, memory problems, paresthesia, seizures, stroke or TIA, syncope, tremors, vertigo and weakness Musculoskeletal: negative for back pain, muscle weakness, neck pain and radiating pain Endocrine: negative for cold intolerance, excessive or decreased sweating, fertility problems, heatintolerance, polydipsia, polyphagia, temperature intolerance, thyroid disease and weight loss PHYSICAL EXAM: Mental Status: The patient was alert and oriented to person, place and time. There was no memory deficit. There was normal language pattern, attention span and general fund of knowledge. Repetition intact, naming three out of three. Gait and Station: Gait and station steady. She does walk somewhat slow but has a normal based to her gait. Cranial Nerves: II: Visual michelle were normal. [...] Light touch and pinprick sensation was normal REVIEW OF IMAGING: I reviewed the patient's MRI of the brain. She has some cerebral volume loss and very mild ventriculomegaly. ASSESSMENT AND PLAN: Jonnie Alex is a 72-year-old woman who complains of 1 year progressive ataxia and imbalance while walking. She underwent a MRI of the brain as well as a cisternogram. She had some mild ventriculomegaly on her MRI and the question of whether not she has normal pressure hydrocephalus has been raised. I have explained to her that she does not have a classic triad which includes ataxia, neural cognitive decline, and urinary incontinence. Certainly she does have a a slow gait on walking but doesnot appear to be imbalance dura particularly wide base. I can't obtain no history consistent with neuro cognitive decline. I explained to the patient that I am skeptical that her mild ventriculomegaly is causing her walking problems. I am concerned as perhaps related to her multiple orthopedic surgeries or spinal stenosis. I would like to repeat her cervical and lumbar spine MRI and while she is undergoing that have her undergo a 3 dimensional volumetric brain MRI. I would like to her to see [facility], Dr. Mantilla, to perform a full gait assessment with kinemetrics and video analysis. After she sees Dr. Mantilla an brain and spine MRI I will determine if it is worth her undergoing a lumbar drain trial to assess whether she is a candidate for a CLAM TREADER shunt. Thank you for allowing me to participate in the care of your patient. If you have any questions, feel free to contact me at [phone]. Sincerely, Leobardo Perez MD RATORY COURIER * Rodolfo Mantilla MD - 10/12/2018 10:35 AM CST Please schedule her for an NPH visit. If I have an open DBS on a Thursday in October she can have that RATORY COURIER * Kizzy Monsivais - 10/12/2018 10:[address] Mantilla. I have called the patient and LMOR for the pt to c/b. I have also transcribed an order to track this referral. Brenda, Kizzy RATORY COURIER documented in this encounter Plan of Treatment Not on file documented as of this encounter Results * MRI Brain and Neuro 3D W WO Contrast (10/13/2018 4:30 PM LABORATORY COURIER) Anatomical Region Laterality Modality Head and Neck N/A Magnetic Resonan ce 10/14/2018 11:0 8 AM LABORATORY COURIER Addenda Addendum by Zhang Gomez MD PhD on 10/18/2018 1:25 PM LABORATORY COURIER ADDENDUM: ??Issued 09/18/2018 at 12:[address] Gomez and Dr. Bills. T1-weighted sagittal MPRage images of the brain were postprocessed on a separate 3D workstation to generate segmented brain volumes using FreeSurfer. ??Results were compared to a normative cohort from [facility]. ??Graphs were sent to [facility]. Left hippocampus volume: 15th percentile, Between 1-2 SD below the mean Right hippocampus volume: 10th percentile, Between 1-2 SD below the mean Parietal lobe cortical thickness: 35th percentile, Within 1 SD below the mean Occipital lobe cortical thickness: 45th percentile, Within 1 SD below the mean Frontal lobe cortical thickness: 27th percentile, Within 1 SD below the mean Left frontotemporal cortical thickness: 35th percentile, Within 1 SD below the mean Right frontotemporal cortical thickness: 34th percentile, Within 1 SD below the mean Ventricular volume: 99th percentile, ??Greater than 2 SD above the mean Ratio of ventricular volume to cerebral volume: 99th percentile, Greater than 2 SD above the mean Fazekas score: Mild Microbleeds: None Volumetric findings suggestive of normal pressure hydrocephalus, specifically 99th percentile for ventricular volumes and ventricular volume to cerebral volume ratio. Dictated by: Kirill Bills Electronically signed by: Zhang Gomez M.D, PHD Impressions 10/14/2018 12:27 PM LABORATORY COURIER 1. Stable ventriculomegaly, out of proportion to sulcal enlargement, which can be seen with normal pressure hydrocephalus, concordant with 24-hour lateral ventricular uptake on outside cisternogram. 2. Multilevel degenerative changes of the cervical and lumbar spine as described in detail above. 3. Mild to moderate compression deformity of T12 with kyphoplasty changes. ??Edema in the superior endplate is suggestive of superimposed acute/subacute fracture. ??No significant retropulsion or canal stenosis. Dictated by: Brandon Mclain M.D. Electronically signed by: Ashley Connors M.D., Ph.D. Narrative 10/14/2018 12:27 PM LABORATORY COURIER EXAMINATION: Magnetic resonance imaging (MRI) of the brain and brainstem without and with intravenous contrast contrast Magnetic resonance imaging (MRI) of the cervical spine without contrast Magnetic resonance imaging (MRI) of the lumbar spine without contrast HISTORY: Cerebral ventriculomegaly. ??Spinal stenosis of the cervical and lumbar region. ??NPH workup. TECHNIQUE: Multiplanar multi-weighted MRI of brain and brainstem was performed without and with intravenous contrast using the general brain protocol. Multiplanar multi-weighted MRI of cervical and lumbar was performed without intravenous contrast using the cervical and lumbar spine protocol. COMPARISON: MRI brain 05/24/2018, radionuclide cisternogram 06/16/18 Contrast information: 18 mL intravenous Dotarem FINDINGS: BRAIN: Persistent enlargement of the lateral ventricles, proportion to the sulcal enlargement. ??Thinning of the corpus callosum. Minimal scattered T2/FLAIR white matter hyperintensities, likely representing minimal chronic microvascular ischemic change. ??Biphasic CSF flow in the cerebral aqueduct, 4th ventricle, and basal cisterns. The scalp and calvarium are normal. ?? The superior sagittal sinus demonstrates normal venous flow. ??The corpus callosum is normal in shape and signal intensity. ??The posterior fossa is unremarkable. The pituitary and sella are normal. ??The brainstem and craniocervical junction are unremarkable. Diffusion weighted images reveal no hyperintensities to suggest acute cerebral infarction. ??The susceptibility weighted sequences reveal no evidence of acute or chronic hemorrhage. There are no areas of abnormal contrast enhancement. The paranasal sinuses are normal. ??The visualized portions of the mastoids are unremarkable. ??Bilateral lens replacement. ??Normal flow voids are demonstrated in the carotid arteries and basilar artery. CERVICAL SPINE: The alignment of the cervical spine is normal. Osseous hemangioma at C7 with mixed Modic endplate changes throughout the cervical spine. Heterogeneous marrow signal. ??No acute fracture is identified; however, if trauma is suspected, a CT scan would be a more sensitive examination for fractures. The craniocervical junction is normal. The visualized portions of the skull base and the posterior fossa are normal. The spinal cord demonstrates normal signal intensity on all sequences. Severe intervertebral disc height loss at multiple levels from C3-C4 through T1-2 with associated degenerative endplate changes and marginal osteophytes. No soft tissue abnormality is identified. Normal signal voids are present in the vertebral arteries. C2-C3: Small posterior disc osteophyte complex There is mild facet arthropathy. There is mild uncovertebral joint disease. There is no neuroforaminal stenosis. There is no spinal canal stenosis. C3-C4: Small posterior disc osteophyte complex There is mild left facet arthropathy. There is mild uncovertebral joint disease. There is mild neuroforaminal stenosis. There is mild spinal canal stenosis. C4-C5: Moderate posterior disc osteophyte complex There is mild facet arthropathy. There is mild uncovertebral joint disease. There is moderate bilateral, right greater than left, neuroforaminal stenosis. There is moderate spinal canal stenosis. C5-C6: Moderate posterior disc osteophyte complex There is mild facet arthropathy with mild prominence of the ligamentum flavum. There is moderate uncovertebral joint disease. There is moderate left and severe right neuroforaminal stenosis. There is moderate to severe spinal canal stenosis. C6-C7:Small to moderate posterior disc aspect complex, asymmetric to left There is mild facet arthropathy. There is moderate to severe uncovertebral joint disease. There is moderate to severe neuroforaminal stenosis. There is mild to moderate spinal canal stenosis. C7-T1: Small posterior disc osteophyte complex There is mild facet arthropathy. There is mild uncovertebral joint disease. There is no neuroforaminal stenosis. There is no spinal canal stenosis. LUMBAR SPINE: The alignment of the lumbar spine is normal. Heterogeneous marrow signal with extensive mixed Modic endplate changes with prominent Modic 1 endplate changes at L3-L4. Mild to moderate compression deformity of T12 with kyphoplasty changes and edema in the superior endplate. ??No significant retropulsion or canal stenosis. ??The conus medullaris terminates at the level of L1. The distal spinal cord signal intensity is normal. Severe intervertebral disc height loss at multiple levels in the lumbar spine.. Limited views of the abdomen and pelvis show no soft tissue abnormality, though evaluation is obscured by motion. The aorta is normal. L1-L2: Mild disc bulge. There is moderate facet arthropathy. There is moderate left and mild right neuroforaminal stenosis. There is mild spinal canal stenosis. L2-L3: ??Posterior disc osteophyte complex. There is moderate, left worse than right, facet arthropathy. There is moderate to severe left and mild right neuroforaminal stenosis. There is mild spinal canal stenosis. L3-L4: ??Diffuse disc bulge, asymmetric to the right. There is moderate facet arthropathy, with ligamentum flavum infolding. There is mild to moderate bilateral neuroforaminal stenosis. There is mild spinal canal stenosis. L4-L5: ??Diffuse disc bulge, asymmetric to the left. There is moderate facet arthropathy with ligamentum flavum infolding. There is mild to moderate neuroforaminal stenosis. There is mild spinal canal stenosis. L5-S1: ??Mild disc bulge. There is moderate facet arthropathy. There is mild left and [id number] right neuroforaminal stenosis. There is no spinal canal stenosis. Procedure Note Ashley Connors MD PhD / Zhang Gomez MD PhD - 10/14/2018 EXAMINATION: Magnetic resonance imaging (MRI) of the brain and brainstem without and with intravenous contrast contrast Magnetic resonance imaging (MRI) of the cervical spine without contrast Magnetic resonance imaging (MRI) of the lumbar spine without contrast HISTORY: Cerebral ventriculomegaly. Spinal stenosis of the cervical and lumbar region. NPH workup. TECHNIQUE: Multiplanar multi-weighted MRI of brain and brainstem was performed without and with intravenous contrast using the general brain protocol. Multiplanar multi-weighted MRI of cervical and lumbar was performed without intravenous contrast using the cervical and lumbar spine protocol. COMPARISON: MRI brain 05/24/2018, radionuclide cisternogram 06/16/18 Contrast information: 18 mL intravenous Dotarem FINDINGS: BRAIN: Persistent enlargement of the lateral ventricles, proportion to the sulcal enlargement. Thinning of the corpus callosum. Minimal scattered T2/FLAIR white matter hyperintensities, likely representing minimal chronic microvascular ischemic change. Biphasic CSF flow in the cerebral aqueduct, 4th ventricle, and basal cisterns. The scalp and calvarium are normal. The superior sagittal sinus demonstrates normal venous flow. The corpus callosum is normal in shape and signal intensity. The posterior fossa is unremarkable. The pituitary and sella are normal. The brainstem and craniocervical junction are unremarkable. Diffusion weighted images reveal no hyperintensities to suggest acute cerebral infarction. The susceptibility weighted sequences reveal no evidence of acute or chronic hemorrhage. There are no areas of abnormal contrast enhancement. The paranasal sinuses are normal. The visualized portions of the mastoids are unremarkable. Bilateral lens replacement. Normal flow voids are demonstrated in the carotid arteries and basilar artery. CERVICAL SPINE: The alignment of the cervical spine is normal. Osseous hemangioma at C7 with mixed Modic endplate changes throughout the cervical spine. Heterogeneous marrow signal. No acute fracture is identified; however, if trauma is suspected, a CT scan would be a more sensitive examination for fractures. The craniocervical junction is normal. The visualized portions of the skull base and the posterior fossa are normal. The spinal cord demonstrates normal signal intensity on all sequences. Severe intervertebral disc height loss at multiple levels from C3-C4 through T1-2 with associated degenerative endplate changes and marginal osteophytes. No soft tissue abnormality is identified. Normal signal voids are present in the vertebral arteries. C2-C3: Small posterior disc osteophyte complex There is mild facet arthropathy. There is mild uncovertebral joint disease. There is no neuroforaminal stenosis. There is no spinal canal stenosis. C3-C4: Small posterior disc osteophyte complex There is mild left facet arthropathy. There is mild uncovertebral joint disease. There is mild neuroforaminal stenosis. There is mild spinal canal stenosis. C4-C5: Moderate posterior disc osteophyte complex There is mild facet arthropathy. There is mild uncovertebral joint disease. There is moderate bilateral, right greater than left, neuroforaminal stenosis. There is moderate spinal canal stenosis. C5-C6: Moderate posterior disc osteophyte complex There is mild facet arthropathy with mild prominence of the ligamentum flavum. There is moderate uncovertebral joint disease. There is moderate left and severe right neuroforaminal stenosis. There is moderate to severe spinal canal stenosis. C6-C7:Small to moderate posterior disc aspect complex, asymmetric to left There is mild facet arthropathy. There is moderate to severe uncovertebral joint disease. There is moderate to severe neuroforaminal stenosis. There is mild to moderate spinal canal stenosis. C7-T1: Small posterior disc osteophyte complex There is mild facet arthropathy. There is mild uncovertebral joint disease. There is no neuroforaminal stenosis. There is no spinal canal stenosis. LUMBAR SPINE: The alignment of the lumbar spine is normal. Heterogeneous marrow signal with extensive mixed Modic endplate changes with prominent Modic 1 endplate changes at L3-L4. Mild to moderate compression deformity of T12 with kyphoplasty changes and edema in the superior endplate. No significant retropulsion or canal stenosis. The conus medullaris terminates at the level of L1. The distal spinal cord signal intensity is normal. Severe intervertebral disc height loss at multiple levels in the lumbar spine.. Limited views of the abdomen and pelvis show no soft tissue abnormality, though evaluation is obscured by motion. The aorta is normal. L1-L2: Mild disc bulge. There is moderate facet arthropathy. There is moderate left and mild right neuroforaminal stenosis. There is mild spinal canal stenosis. L2-L3: Posterior disc osteophyte complex. There is moderate, left worse than right, facet arthropathy. There is moderate to severe left and mild right neuroforaminal stenosis. There is mild spinal canal stenosis. L3-L4: Diffuse disc bulge, asymmetric to the right. There is moderate facet arthropathy, with ligamentum flavum infolding. There is mild to moderate bilateral neuroforaminal stenosis. There is mild spinal canal stenosis. L4-L5: Diffuse disc bulge, asymmetric to the left. There is moderate facet arthropathy with ligamentum flavum infolding. There is mild to moderate neuroforaminal stenosis. There is mild spinal canal stenosis. L5-S1: Mild disc bulge. There is moderate facet arthropathy. There is mild left and [id number] right neuroforaminal stenosis. There is no spinal canal stenosis. IMPRESSION: 1. Stable ventriculomegaly, out of proportion to sulcal enlargement, which can be seen with normal pressure hydrocephalus, concordant with 24-hour lateral ventricular uptake on outside cisternogram. 2. Multilevel degenerative changes of the cervical and lumbar spine as described in detail above. 3. Mild to moderate compression deformity of T12 with kyphoplasty changes. Edema in the superior endplate is suggestive of superimposed acute/subacute fracture. No significant retropulsion or canal stenosis. Dictated by: Brandon Mclain M.D. Electronically signed by: Ashley Connors M.D., Ph.D. us Leobardo Perez MD IMG MRI PROCEDURES Edited Res ult - Final * MRI Lumbar Spine WO Contrast (10/13/2018 4:30 PM LABORATORY COURIER) Anatomical Region Laterality Modality Spine N/A Magnetic Resonan ce 10/14/2018 11:0 8 AM LABORATORY COURIER Addenda Addendum by Zhang Gomez MD PhD on 10/18/2018 1:25 PM LABORATORY COURIER ADDENDUM: ??Issued 09/18/2018 at 12:[address] Gomez and Dr. Bills. T1-weighted sagittal MPRage images of the brain were postprocessed on a separate 3D workstation to generate segmented brain volumes using FreeSurfer. ??Results were compared to a normative cohort from [facility]. ??Graphs were sent to [facility]. Left hippocampus volume: 15th percentile, Between 1-2 SD below the mean Right hippocampus volume: 10th percentile, Between 1-2 SD below the mean Parietal lobe cortical thickness: 35th percentile, Within 1 SD below the mean Occipital lobe cortical thickness: 45th percentile, Within 1 SD below the mean Frontal lobe cortical thickness: 27th percentile, Within 1 SD below the mean Left frontotemporal cortical thickness: 35th percentile, Within 1 SD below the mean Right frontotemporal cortical thickness: 34th percentile, Within 1 SD below the mean Ventricular volume: 99th percentile, ??Greater than 2 SD above the mean Ratio of ventricular volume to cerebral volume: 99th percentile, Greater than 2 SD above the mean Fazekas score: Mild Microbleeds: None Volumetric findings suggestive of normal pressure hydrocephalus, specifically 99th percentile for ventricular volumes and ventricular volume to cerebral volume ratio. Dictated by: Kirill Bills Electronically signed by: Zhang Gomez M.D, PHD Impressions 10/14/2018 12:27 PM LABORATORY COURIER 1. Stable ventriculomegaly, out of proportion to sulcal enlargement, which can be seen with normal pressure hydrocephalus, concordant with 24-hour lateral ventricular uptake on outside cisternogram. 2. Multilevel degenerative changes of the cervical and lumbar spine as described in detail above. 3. Mild to moderate compression deformity of T12 with kyphoplasty changes. ??Edema in the superior endplate is suggestive of superimposed acute/subacute fracture. ??No significant retropulsion or canal stenosis. Dictated by: Brandon Mclain M.D. Electronically signed by: Ashley Connors M.D., Ph.D. Narrative 10/14/2018 12:27 PM LABORATORY COURIER EXAMINATION: Magnetic resonance imaging (MRI) of the brain and brainstem without and with intravenous contrast contrast Magnetic resonance imaging (MRI) of the cervical spine without contrast Magnetic resonance imaging (MRI) of the lumbar spine without contrast HISTORY: Cerebral ventriculomegaly. ??Spinal stenosis of the cervical and lumbar region. ??NPH workup. TECHNIQUE: Multiplanar multi-weighted MRI of brain and brainstem was performed without and with intravenous contrast using the general brain protocol. Multiplanar multi-weighted MRI of cervical and lumbar was performed without intravenous contrast using the cervical and lumbar spine protocol. COMPARISON: MRI brain 05/24/2018, radionuclide cisternogram 06/16/18 Contrast information: 18 mL intravenous Dotarem FINDINGS: BRAIN: Persistent enlargement of the lateral ventricles, proportion to the sulcal enlargement. ??Thinning of the corpus callosum. Minimal scattered T2/FLAIR white matter hyperintensities, likely representing minimal chronic microvascular ischemic change. ??Biphasic CSF flow in the cerebral aqueduct, 4th ventricle, and basal cisterns. The scalp and calvarium are normal. ?? The superior sagittal sinus demonstrates normal venous flow. ??The corpus callosum is normal in shape and signal intensity. ??The posterior fossa is unremarkable. The pituitary and sella are normal. ??The brainstem and craniocervical junction are unremarkable. Diffusion weighted images reveal no hyperintensities to suggest acute cerebral infarction. ??The susceptibility weighted sequences reveal no evidence of acute or chronic hemorrhage. There are no areas of abnormal contrast enhancement. The paranasal sinuses are normal. ??The visualized portions of the mastoids are unremarkable. ??Bilateral lens replacement. ??Normal flow voids are demonstrated in the carotid arteries and basilar artery. CERVICAL SPINE: The alignment of the cervical spine is normal. Osseous hemangioma at C7 with mixed Modic endplate changes throughout the cervical spine. Heterogeneous marrow signal. ??No acute fracture is identified; however, if trauma is suspected, a CT scan would be a more sensitive examination for fractures. The craniocervical junction is normal. The visualized portions of the skull base and the posterior fossa are normal. The spinal cord demonstrates normal signal intensity on all sequences. Severe intervertebral disc height loss at multiple levels from C3-C4 through T1-2 with associated degenerative endplate changes and marginal osteophytes. No soft tissue abnormality is identified. Normal signal voids are present in the vertebral arteries. C2-C3: Small posterior disc osteophyte complex There is mild facet arthropathy. There is mild uncovertebral joint disease. There is no neuroforaminal stenosis. There is no spinal canal stenosis. C3-C4: Small posterior disc osteophyte complex There is mild left facet arthropathy. There is mild uncovertebral joint disease. There is mild neuroforaminal stenosis. There is mild spinal canal stenosis. C4-C5: Moderate posterior disc osteophyte complex There is mild facet arthropathy. There is mild uncovertebral joint disease. There is moderate bilateral, right greater than left, neuroforaminal stenosis. There is moderate spinal canal stenosis. C5-C6: Moderate posterior disc osteophyte complex There is mild facet arthropathy with mild prominence of the ligamentum flavum. There is moderate uncovertebral joint disease. There is moderate left and severe right neuroforaminal stenosis. There is moderate to severe spinal canal stenosis. C6-C7:Small to moderate posterior disc aspect complex, asymmetric to left There is mild facet arthropathy. There is moderate to severe uncovertebral joint disease. There is moderate to severe neuroforaminal stenosis. There is mild to moderate spinal canal stenosis. C7-T1: Small posterior disc osteophyte complex There is mild facet arthropathy. There is mild uncovertebral joint disease. There is no neuroforaminal stenosis. There is no spinal canal stenosis. LUMBAR SPINE: The alignment of the lumbar spine is normal. Heterogeneous marrow signal with extensive mixed Modic endplate changes with prominent Modic 1 endplate changes at L3-L4. Mild to moderate compression deformity of T12 with kyphoplasty changes and edema in the superior endplate. ??No significant retropulsion or canal stenosis. ??The conus medullaris terminates at the level of L1. The distal spinal cord signal intensity is normal. Severe intervertebral disc height loss at multiple levels in the lumbar spine.. Limited views of the abdomen and pelvis show no soft tissue abnormality, though evaluation is obscured by motion. The aorta is normal. L1-L2: Mild disc bulge. There is moderate facet arthropathy. There is moderate left and mild right neuroforaminal stenosis. There is mild spinal canal stenosis. L2-L3: ??Posterior disc osteophyte complex. There is moderate, left worse than right, facet arthropathy. There is moderate to severe left and mild right neuroforaminal stenosis. There is mild spinal canal stenosis. L3-L4: ??Diffuse disc bulge, asymmetric to the right. There is moderate facet arthropathy, with ligamentum flavum infolding. There is mild to moderate bilateral neuroforaminal stenosis. There is mild spinal canal stenosis. L4-L5: ??Diffuse disc bulge, asymmetric to the left. There is moderate facet arthropathy with ligamentum flavum infolding. There is mild to moderate neuroforaminal stenosis. There is mild spinal canal stenosis. L5-S1: ??Mild disc bulge. There is moderate facet arthropathy. There is mild left and [id number] right neuroforaminal stenosis. There is no spinal canal stenosis. Procedure Note Ashley Connors MD PhD / Zhang Gomez MD PhD - 10/14/2018 EXAMINATION: Magnetic resonance imaging (MRI) of the brain and brainstem without and with intravenous contrast contrast Magnetic resonance imaging (MRI) of the cervical spine without contrast Magnetic resonance imaging (MRI) of the lumbar spine without contrast HISTORY: Cerebral ventriculomegaly. Spinal stenosis of the cervical and lumbar region. NPH workup. TECHNIQUE: Multiplanar multi-weighted MRI of brain and brainstem was performed without and with intravenous contrast using the general brain protocol. Multiplanar multi-weighted MRI of cervical and lumbar was performed without intravenous contrast using the cervical and lumbar spine protocol. COMPARISON: MRI brain 05/24/2018, radionuclide cisternogram 06/16/18 Contrast information: 18 mL intravenous Dotarem FINDINGS: BRAIN: Persistent enlargement of the lateral ventricles, proportion to the sulcal enlargement. Thinning of the corpus callosum. Minimal scattered T2/FLAIR white matter hyperintensities, likely representing minimal chronic microvascular ischemic change. Biphasic CSF flow in the cerebral aqueduct, 4th ventricle, and basal cisterns. The scalp and calvarium are normal. The superior sagittal sinus demonstrates normal venous flow. The corpus callosum is normal in shape and signal intensity. The posterior fossa is unremarkable. The pituitary and sella are normal. The brainstem and craniocervical junction are unremarkable. Diffusion weighted images reveal no hyperintensities to suggest acute cerebral infarction. The susceptibility weighted sequences reveal no evidence of acute or chronic hemorrhage. There are no areas of abnormal contrast enhancement. The paranasal sinuses are normal. The visualized portions of the mastoids are unremarkable. Bilateral lens replacement. Normal flow voids are demonstrated in the carotid arteries and basilar artery. CERVICAL SPINE: The alignment of the cervical spine is normal. Osseous hemangioma at C7 with mixed Modic endplate changes throughout the cervical spine. Heterogeneous marrow signal. No acute fracture is identified; however, if trauma is suspected, a CT scan would be a more sensitive examination for fractures. The craniocervical junction is normal. The visualized portions of the skull base and the posterior fossa are normal. The spinal cord demonstrates normal signal intensity on all sequences. Severe intervertebral disc height loss at multiple levels from C3-C4 through T1-2 with associated degenerative endplate changes and marginal osteophytes. No soft tissue abnormality is identified. Normal signal voids are present in the vertebral arteries. C2-C3: Small posterior disc osteophyte complex There is mild facet arthropathy. There is mild uncovertebral joint disease. There is no neuroforaminal stenosis. There is no spinal canal stenosis. C3-C4: Small posterior disc osteophyte complex There is mild left facet arthropathy. There is mild uncovertebral joint disease. There is mild neuroforaminal stenosis. There is mild spinal canal stenosis. C4-C5: Moderate posterior disc osteophyte complex There is mild facet arthropathy. There is mild uncovertebral joint disease. There is moderate bilateral, right greater than left, neuroforaminal stenosis. There is moderate spinal canal stenosis. C5-C6: Moderate posterior disc osteophyte complex There is mild facet arthropathy with mild prominence of the ligamentum flavum. There is moderate uncovertebral joint disease. There is moderate left and severe right neuroforaminal stenosis. There is moderate to severe spinal canal stenosis. C6-C7:Small to moderate posterior disc aspect complex, asymmetric to left There is mild facet arthropathy. There is moderate to severe uncovertebral joint disease. There is moderate to severe neuroforaminal stenosis. There is mild to moderate spinal canal stenosis. C7-T1: Small posterior disc osteophyte complex There is mild facet arthropathy. There is mild uncovertebral joint disease. There is no neuroforaminal stenosis. There is no spinal canal stenosis. LUMBAR SPINE: The alignment of the lumbar spine is normal. Heterogeneous marrow signal with extensive mixed Modic endplate changes with prominent Modic 1 endplate changes at L3-L4. Mild to moderate compression deformity of T12 with kyphoplasty changes and edema in the superior endplate. No significant retropulsion or canal stenosis. The conus medullaris terminates at the level of L1. The distal spinal cord signal intensity is normal. Severe intervertebral disc height loss at multiple levels in the lumbar spine.. Limited views of the abdomen and pelvis show no soft tissue abnormality, though evaluation is obscured by motion. The aorta is normal. L1-L2: Mild disc bulge. There is moderate facet arthropathy. There is moderate left and mild right neuroforaminal stenosis. There is mild spinal canal stenosis. L2-L3: Posterior disc osteophyte complex. There is moderate, left worse than right, facet arthropathy. There is moderate to severe left and mild right neuroforaminal stenosis. There is mild spinal canal stenosis. L3-L4: Diffuse disc bulge, asymmetric to the right. There is moderate facet arthropathy, with ligamentum flavum infolding. There is mild to moderate bilateral neuroforaminal stenosis. There is mild spinal canal stenosis. L4-L5: Diffuse disc bulge, asymmetric to the left. There is moderate facet arthropathy with ligamentum flavum infolding. There is mild to moderate neuroforaminal stenosis. There is mild spinal canal stenosis. L5-S1: Mild disc bulge. There is moderate facet arthropathy. There is mild left and [id number] right neuroforaminal stenosis. There is no spinal canal stenosis. IMPRESSION: 1. Stable ventriculomegaly, out of proportion to sulcal enlargement, which can be seen with normal pressure hydrocephalus, concordant with 24-hour lateral ventricular uptake on outside cisternogram. 2. Multilevel degenerative changes of the cervical and lumbar spine as described in detail above. 3. Mild to moderate compression deformity of T12 with kyphoplasty changes. Edema in the superior endplate is suggestive of superimposed acute/subacute fracture. No significant retropulsion or canal stenosis. Dictated by: Brandon Mclain M.D. Electronically signed by: Ashley Connors M.D., Ph.D. Leobardo Perez MD IM MRI PROCEDURES Edited Res ult - Final * MRI Cervical Spine WO Contrast (10/13/2018 4:30 PM LABORATORY COURIER) Anatomical Region Laterality Modality Spine N/A Magnetic Resonan ce 10/14/2018 11:0 8 AM LABORATORY COURIER Addenda Addendum by Zhang Gomez MD PhD on 10/18/2018 1:25 PM LABORATORY COURIER ADDENDUM: ??Issued 09/18/2018 at 12:[address] Gomez and Dr. Bills. T1-weighted sagittal MPRage images of the brain were postprocessed on a separate 3D workstation to generate segmented brain volumes using FreeSurfer. ??Results were compared to a normative cohort from [facility]. ??Graphs were sent to [facility]. Left hippocampus volume: 15th percentile, Between 1-2 SD below the mean Right hippocampus volume: 10th percentile, Between 1-2 SD below the mean Parietal lobe cortical thickness: 35th percentile, Within 1 SD below the mean Occipital lobe cortical thickness: 45th percentile, Within 1 SD below the mean Frontal lobe cortical thickness: 27th percentile, Within 1 SD below the mean Left frontotemporal cortical thickness: 35th percentile, Within 1 SD below the mean Right frontotemporal cortical thickness: 34th percentile, Within 1 SD below the mean Ventricular volume: 99th percentile, ??Greater than 2 SD above the mean Ratio of ventricular volume to cerebral volume: 99th percentile, Greater than 2 SD above the mean Fazekas score: Mild Microbleeds: None Volumetric findings suggestive of normal pressure hydrocephalus, specifically 99th percentile for ventricular volumes and ventricular volume to cerebral volume ratio. Dictated by: Kirill Bills Electronically signed by: Zhang Gomez M.D, PHD Impressions 10/14/2018 12:27 PM LABORATORY COURIER 1. Stable ventriculomegaly, out of proportion to sulcal enlargement, which can be seen with normal pressure hydrocephalus, concordant with 24-hour lateral ventricular uptake on outside cisternogram. 2. Multilevel degenerative changes of the cervical and lumbar spine as described in detail above. 3. Mild to moderate compression deformity of T12 with kyphoplasty changes. ??Edema in the superior endplate is suggestive of superimposed acute/subacute fracture. ??No significant retropulsion or canal stenosis. Dictated by: Brandon Mclain M.D. Electronically signed by: Ashley Connors M.D., Ph.D. Narrative 10/14/2018 12:27 PM LABORATORY COURIER EXAMINATION: Magnetic resonance imaging (MRI) of the brain and brainstem without and with intravenous contrast contrast Magnetic resonance imaging (MRI) of the cervical spine without contrast Magnetic resonance imaging (MRI) of the lumbar spine without contrast HISTORY: Cerebral ventriculomegaly. ??Spinal stenosis of the cervical and lumbar region. ??NPH workup. TECHNIQUE: Multiplanar multi-weighted MRI of brain and brainstem was performed without and with intravenous contrast using the general brain protocol. Multiplanar multi-weighted MRI of cervical and lumbar was performed without intravenous contrast using the cervical and lumbar spine protocol. COMPARISON: MRI brain 05/24/2018, radionuclide cisternogram 06/16/18 Contrast information: 18 mL intravenous Dotarem FINDINGS: BRAIN: Persistent enlargement of the lateral ventricles, proportion to the sulcal enlargement. ??Thinning of the corpus callosum. Minimal scattered T2/FLAIR white matter hyperintensities, likely representing minimal chronic microvascular ischemic change. ??Biphasic CSF flow in the cerebral aqueduct, 4th ventricle, and basal cisterns. The scalp and calvarium are normal. ?? The superior sagittal sinus demonstrates normal venous flow. ??The corpus callosum is normal in shape and signal intensity. ??The posterior fossa is unremarkable. The pituitary and sella are normal. ??The brainstem and craniocervical junction are unremarkable. Diffusion weighted images reveal no hyperintensities to suggest acute cerebral infarction. ??The susceptibility weighted sequences reveal no evidence of acute or chronic hemorrhage. There are no areas of abnormal contrast enhancement. The paranasal sinuses are normal. ??The visualized portions of the mastoids are unremarkable. ??Bilateral lens replacement. ??Normal flow voids are demonstrated in the carotid arteries and basilar artery. CERVICAL SPINE: The alignment of the cervical spine is normal. Osseous hemangioma at C7 with mixed Modic endplate changes throughout the cervical spine. Heterogeneous marrow signal. ??No acute fracture is identified; however, if trauma is suspected, a CT scan would be a more sensitive examination for fractures. The craniocervical junction is normal. The visualized portions of the skull base and the posterior fossa are normal. The spinal cord demonstrates normal signal intensity on all sequences. Severe intervertebral disc height loss at multiple levels from C3-C4 through T1-2 with associated degenerative endplate changes and marginal osteophytes. No soft tissue abnormality is identified. Normal signal voids are present in the vertebral arteries. C2-C3: Small posterior disc osteophyte complex There is mild facet arthropathy. There is mild uncovertebral joint disease. There is no neuroforaminal stenosis. There is no spinal canal stenosis. C3-C4: Small posterior disc osteophyte complex There is mild left facet arthropathy. There is mild uncovertebral joint disease. There is mild neuroforaminal stenosis. There is mild spinal canal stenosis. C4-C5: Moderate posterior disc osteophyte complex There is mild facet arthropathy. There is mild uncovertebral joint disease. There is moderate bilateral, right greater than left, neuroforaminal stenosis. There is moderate spinal canal stenosis. C5-C6: Moderate posterior disc osteophyte complex There is mild facet arthropathy with mild prominence of the ligamentum flavum. There is moderate uncovertebral joint disease. There is moderate left and severe right neuroforaminal stenosis. There is moderate to severe spinal canal stenosis. C6-C7:Small to moderate posterior disc aspect complex, asymmetric to left There is mild facet arthropathy. There is moderate to severe uncovertebral joint disease. There is moderate to severe neuroforaminal stenosis. There is mild to moderate spinal canal stenosis. C7-T1: Small posterior disc osteophyte complex There is mild facet arthropathy. There is mild uncovertebral joint disease. There is no neuroforaminal stenosis. There is no spinal canal stenosis. LUMBAR SPINE: The alignment of the lumbar spine is normal. Heterogeneous marrow signal with extensive mixed Modic endplate changes with prominent Modic 1 endplate changes at L3-L4. Mild to moderate compression deformity of T12 with kyphoplasty changes and edema in the superior endplate. ??No significant retropulsion or canal stenosis. ??The conus medullaris terminates at the level of L1. The distal spinal cord signal intensity is normal. Severe intervertebral disc height loss at multiple levels in the lumbar spine.. Limited views of the abdomen and pelvis show no soft tissue abnormality, though evaluation is obscured by motion. The aorta is normal. L1-L2: Mild disc bulge. There is moderate facet arthropathy. There is moderate left and mild right neuroforaminal stenosis. There is mild spinal canal stenosis. L2-L3: ??Posterior disc osteophyte complex. There is moderate, left worse than right, facet arthropathy. There is moderate to severe left and mild right neuroforaminal stenosis. There is mild spinal canal stenosis. L3-L4: ??Diffuse disc bulge, asymmetric to the right. There is moderate facet arthropathy, with ligamentum flavum infolding. There is mild to moderate bilateral neuroforaminal stenosis. There is mild spinal canal stenosis. L4-L5: ??Diffuse disc bulge, asymmetric to the left. There is moderate facet arthropathy with ligamentum flavum infolding. There is mild to moderate neuroforaminal stenosis. There is mild spinal canal stenosis. L5-S1: ??Mild disc bulge. There is moderate facet arthropathy. There is mild left and [id number] right neuroforaminal stenosis. There is no spinal canal stenosis. Procedure Note Ashley Connors MD PhD / Zhang Gomez MD PhD - 10/14/2018 EXAMINATION: Magnetic resonance imaging (MRI) of the brain and brainstem without and with intravenous contrast contrast Magnetic resonance imaging (MRI) of the cervical spine without contrast Magnetic resonance imaging (MRI) of the lumbar spine without contrast HISTORY: Cerebral ventriculomegaly. Spinal stenosis of the cervical and lumbar region. NPH workup. TECHNIQUE: Multiplanar multi-weighted MRI of brain and brainstem was performed without and with intravenous contrast using the general brain protocol. Multiplanar multi-weighted MRI of cervical and lumbar was performed without intravenous contrast using the cervical and lumbar spine protocol. COMPARISON: MRI brain 05/24/2018, radionuclide cisternogram 06/16/18 Contrast information: 18 mL intravenous Dotarem FINDINGS: BRAIN: Persistent enlargement of the lateral ventricles, proportion to the sulcal enlargement. Thinning of the corpus callosum. Minimal scattered T2/FLAIR white matter hyperintensities, likely representing minimal chronic microvascular ischemic change. Biphasic CSF flow in the cerebral aqueduct, 4th ventricle, and basal cisterns. The scalp and calvarium are normal. The superior sagittal sinus demonstrates normal venous flow. The corpus callosum is normal in shape and signal intensity. The posterior fossa is unremarkable. The pituitary and sella are normal. The brainstem and craniocervical junction are unremarkable. Diffusion weighted images reveal no hyperintensities to suggest acute cerebral infarction. The susceptibility weighted sequences reveal no evidence of acute or chronic hemorrhage. There are no areas of abnormal contrast enhancement. The paranasal sinuses are normal. The visualized portions of the mastoids are unremarkable. Bilateral lens replacement. Normal flow voids are demonstrated in the carotid arteries and basilar artery. CERVICAL SPINE: The alignment of the cervical spine is normal. Osseous hemangioma at C7 with mixed Modic endplate changes throughout the cervical spine. Heterogeneous marrow signal. No acute fracture is identified; however, if trauma is suspected, a CT scan would be a more sensitive examination for fractures. The craniocervical junction is normal. The visualized portions of the skull base and the posterior fossa are normal. The spinal cord demonstrates normal signal intensity on all sequences. Severe intervertebral disc height loss at multiple levels from C3-C4 through T1-2 with associated degenerative endplate changes and marginal osteophytes. No soft tissue abnormality is identified. Normal signal voids are present in the vertebral arteries. C2-C3: Small posterior disc osteophyte complex There is mild facet arthropathy. There is mild uncovertebral joint disease. There is no neuroforaminal stenosis. There is no spinal canal stenosis. C3-C4: Small posterior disc osteophyte complex There is mild left facet arthropathy. There is mild uncovertebral joint disease. There is mild neuroforaminal stenosis. There is mild spinal canal stenosis. C4-C5: Moderate posterior disc osteophyte complex There is mild facet arthropathy. There is mild uncovertebral joint disease. There is moderate bilateral, right greater than left, neuroforaminal stenosis. There is moderate spinal canal stenosis. C5-C6: Moderate posterior disc osteophyte complex There is mild facet arthropathy with mild prominence of the ligamentum flavum. There is moderate uncovertebral joint disease. There is moderate left and severe right neuroforaminal stenosis. There is moderate to severe spinal canal stenosis. C6-C7:Small to moderate posterior disc aspect complex, asymmetric to left There is mild facet arthropathy. There is moderate to severe uncovertebral joint disease. There is moderate to severe neuroforaminal stenosis. There is mild to moderate spinal canal stenosis. C7-T1: Small posterior disc osteophyte complex There is mild facet arthropathy. There is mild uncovertebral joint disease. There is no neuroforaminal stenosis. There is no spinal canal stenosis. LUMBAR SPINE: The alignment of the lumbar spine is normal. Heterogeneous marrow signal with extensive mixed Modic endplate changes with prominent Modic 1 endplate changes at L3-L4. Mild to moderate compression deformity of T12 with kyphoplasty changes and edema in the superior endplate. No significant retropulsion or canal stenosis. The conus medullaris terminates at the level of L1. The distal spinal cord signal intensity is normal. Severe intervertebral disc height loss at multiple levels in the lumbar spine.. Limited views of the abdomen and pelvis show no soft tissue abnormality, though evaluation is obscured by motion. The aorta is normal. L1-L2: Mild disc bulge. There is moderate facet arthropathy. There is moderate left and mild right neuroforaminal stenosis. There is mild spinal canal stenosis. L2-L3: Posterior disc osteophyte complex. There is moderate, left worse than right, facet arthropathy. There is moderate to severe left and mild right neuroforaminal stenosis. There is mild spinal canal stenosis. L3-L4: Diffuse disc bulge, asymmetric to the right. There is moderate facet arthropathy, with ligamentum flavum infolding. There is mild to moderate bilateral neuroforaminal stenosis. There is mild spinal canal stenosis. L4-L5: Diffuse disc bulge, asymmetric to the left. There is moderate facet arthropathy with ligamentum flavum infolding. There is mild to moderate neuroforaminal stenosis. There is mild spinal canal stenosis. L5-S1: Mild disc bulge. There is moderate facet arthropathy. There is mild left and [id number] right neuroforaminal stenosis. There is no spinal canal stenosis. IMPRESSION: 1. Stable ventriculomegaly, out of proportion to sulcal enlargement, which can be seen with normal pressure hydrocephalus, concordant with 24-hour lateral ventricular uptake on outside cisternogram. 2. Multilevel degenerative changes of the cervical and lumbar spine as described in detail above. 3. Mild to moderate compression deformity of T12 with kyphoplasty changes. Edema in the superior endplate is suggestive of superimposed acute/subacute fracture. No significant retropulsion or canal stenosis. Dictated by: Brandon Mclain M.D. Electronically signed by: Ashley Connors M.D., Ph.D. Leobardo Perez MD IMG MRI PROCEDURES Edited Res ult - Final documented in this encounter Visit Diagnoses Diagnosis Cervical spinal stenosis- Primary Spinal stenosis in cervical region NPH (normal pressure hydrocephalus) (HCC) Idiopathic normal pressure hydrocephalus (INPH) Cerebral ventriculomegaly Other conditions of brain Spinal stenosis of lumbar region, unspecified whether neurogenic claudication present Cerebral ventriculomegaly Other conditions of brain Spinal stenosis of lumbar region, unspecified whether neurogenic claudication present Cervical spinal stenosis Spinal stenosis in cervical region documented in this encounter Discontinued Medications Medication Sig Discontinue Reason Start Date End Da te citalopram (CeleXA) 20 mg tablet Take 20 mg by mouth daily. Duplicate order 10/12/2018 gabapentin (NEURONTIN) 300 mg capsule TAKE ONE CAPSULE 3 TIMES A DAY Duplicate order 10/13/2013 10/12/2018 mupirocin (BACTROBAN) 2 % ointment Appy to each nostril with a cotton swab twice daily 5 days prior to surgery Therapy completed 06/12/2017 10/12/2018 documented as of this encounter Orders Outpatient Referral Count Last Ordered Date Fir st Ordered Date AMB REFERRAL TO NEUROSURGERY 1 10/12/2018 documented in this encounter Care Teams Zipper Setter Lockstitch Relationship Specialty Start Date End Date Willy Cummings MD [address] [place] [address] PCP - General 08/06/17 12/20/19 documented as of this encounter
--- OUTSIDE RECORDS SUMMARY | 2024-10-31 03:52 | XMS_ITS | Encounter Summary ---
Author Organization [facility] Healthcare Address [address] [place] [address] Care Team Providers Care Flat Bed Operator Name Role Phone Willy Cummings MD Primary Care Provider +1- [phone] Encounter Details Date Type Department Care Team (Late st Contact Info) Description 04/15/2018 Orders Only [facility] [address] [place] [id number] Rhiannon Lopes, RT Social History Tobacco Use Types Packs/Day Years Used Date Smoking Tobacco: Never Comments Unknown Sex and Gender Information Value Date Recorded Sex Assigned at Not on file Legal Sex 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
--- OUTSIDE RECORDS SUMMARY | 2024-10-31 03:52 | XMS_ITS | Encounter Summary ---
Author Organization [facility] Healthcare Address [address] [place] [address] Care Team Providers Care Managing Partner Name Role Phone Willy Cummings MD Primary Care Provider +1- [phone] Encounter Details Date Type Department Care Team (Late st Contact Info) Description 10/12/2018 Orders Only Radiology [address] [place] [address] Salvador Benoit MD [address] [facility] [address] [place] [address] Social History Tobacco Use Types Packs/Day Years Used Date Smoking Tobacco: Former Smokeless Tobacco: Never Alcohol Use Standard Drinks/Week Comments Yes 1 (1 standard drink = 0.6 oz pur e alcohol) Comments Unknown Sex and Gender Information Value Date Recorded Sex Assigned at Not on file Legal Sex Female 1:04 AM 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
--- OUTSIDE RECORDS SUMMARY | 2024-10-31 03:52 | XMS_ITS | Encounter Summary ---
Author Organization [facility] Address [address] [place] [id number] Care Team Providers Care Support Merchandiser Name Role Phone Willy Cummings MD Primary Care Provider +1- [phone] Cecilia Lim MD Primary Care Provider Rodolfo Mantilla MD Unavailable Sabrina Ruffin MD Primary Care Provider Encounter Details Date Type Department Care Team (Late st Contact Info) Description 12/08/2017 Orders Only [facility] Information Management [address] [place] [address] Nehemiah Munoz MD [address] [place] [id number] Social History Tobacco Use Types Packs/Day Years Used Date Smoking Tobacco: Never Comments Unknown Sex and Gender Information Value Date Recorded Sex Assigned at Not on file Legal Sex Female 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 Gender Identity Not on file Sexual Orientation Not on file documented as of this encounter Plan of Treatment Not on file documented as of this encounter Visit Diagnoses Not on filedocumented in this encounter Care Teams Support Merchandiser Relationship Specialty Start Date End Date Willy Cummings MD [address] [place], [place] [id number] PCP - General 08/06/17 12/20/19 Cecilia Lim MD [address] [place] [address] PCP - General Family Medicine 12/21/19 12/30/20 Sabrina Ruffin MD [address] [place] [address] PCP - General Family Medicine 12/31/20 Rodolfo Mantilla MD [address] [place] [address] Consulting Physician Neurology 12/21/19 documented as of this encounter
--- OUTSIDE RECORDS SUMMARY | 2024-10-31 03:52 | XMS_ITS | Encounter Summary ---
Author Organization [facility] Healthcare Address [address] [place] [address] Care Team Providers Care Dress Shoe Inspector Name Role Phone Willy Cummings MD Primary Care Provider [phone] Encounter Details Date Type Department Care Team (Late st Contact Info) Description 05/21/2018 6:51 AM CDT - 05/21/2018 12:37 PM CDT Hospital Encounter [facility] Radiology [address] [place] [address] Paras Simon MD [address] 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 Gender Identity Not on file Sexual Orientation Not on file documented as of this encounter Last Filed Vital Signs Vital Sign Reading Time Taken Comments Blood Pressure 169/76 05/21/2018 10:30 AM CDT Pulse 67 05/21/2018 10:30 AM CDT Temperature - - Respiratory Rate 18 05/21/2018 10:10 AM CDT Oxygen Saturation 97% 05/21/2018 10:30 AM CDT Inhaled Oxygen Concentration - - Weight 90.7 kg (200 lb) 05/21/2018 7:36 AM CDT Height 163.8 cm (5' 4.5 ) 05/21/2018 7:36 AM CDT Body Mass Index 33.8 05/21/2018 7:36 AM CDT documented in this encounter Discharge Instructions * Discharge Instructions* Venita Armenta MD - 05/21/2018 10:00 AM CDT Interventional Radiology Outpatient Discharge Instructions/Note Diagnosis:No longer needs IVC filter Procedure:IVC filter retrieval Limitations: [] No lifting greater than 5 pounds with [] Right [] Left arm for 7 days. [x] You received medication that may affect your judgement. ?? Stay with a responsible person today. ?? Do not drive, operate machinery, make any legal or important decisions, or drink alcohol tomorrow. ?? No smoking unless another adult is present. Other Diet: You may resume your previous diet. Medication: [x] Usual medications; check with your regular doctor for any questions. Do not take any new pain medicine, sleeping pills or sedatives unless approved by your doctor. [] Prescriptions given for: Procedure Site Care: [] teaching sheet given [x] Skin glue was used to close your incision. See teaching sheet. [] Keep site clean and dry. [] You may bathe or shower tomorrow. [] Change the dressing daily and if it becomes wet or dirty. [] Cover entire area with plastic and tape down edges before showering to keep site clean and dry. [] The suture at your dialysis access site may be removed by the dialysis staff on ___/___/___ (date). Drainage Tube Care: [] Flush tube with [] 5ml Normal Saline [] 10 ml Normal Saline [] Other: [] Flush tube [] once a day [] Other: [] Record drainage output every day. [] Your tube is capped. Uncap the tube after or if severe pain or fever develops. (Please see teaching sheet). [] Call Interventional Radiology if there is leakage around the tube or the tube stops draining. To contact an Interventional Radiologist call [phone] Thursday through Thursday from 7:30am-4:30pm. At all other times call [phone] and ask that the Interventional Radiologist be paged. Special instructions: Please call Interventional Radiology for any procedure related questions or problems including: ?? Extreme swelling or bruising at the site. ?? Unusual drainage or bleeding from procedure site. ?? Fever of 101.5 F for more than 24 hours. ?? Severe procedure related pain. Follow up care: [] Return to Interventional Radiology on at Please come to: [] 3rd Floor [facility] [] 4th floor [facility] [] [facility] [] [facility] Please call [phone] to schedule a follow up appointment. You need to return in documented in this encounter Medications at Time of Discharge metoprolol XL (TOPROL-XL) 50 mg 24 hr tablet Take 50 mg by mouth daily. atorvastatin (LIPITOR) 10 mg tablet Take 10 mg by mouth daily. 08/29/2021 citalopram (CeleXA) 20 mg tablet Take 20 mg by mouth daily. 10/12/2018 gabapentin (NEURONTIN) 300 mg capsule Take 600 mg by mouth 2 (two) times a day 06/02/2022 gabapentin (NEURONTIN) 300 mg capsule TAKE ONE CAPSULE 3 TIMES A DAY 10/13/2013 10/12/2018 hydroCHLOROthiaz laila (MICROZIDE) 12.5 mg capsule Take 12.5 mg by mouth daily. 11/24/2018 HYDROcodone-acet aminophen 2.5-325 mg tablet Take 1 tablet by mouth 3 (three) times a day as needed. 11/24/2018 levothyroxine sodium (TIROSINT) 100 mcg capsule Take 100 mcg by mouth daily. 11/24/2018 losartan (COZAAR) 50 mg tablet Take 50 mg by mouth 2 (two) times a day 07/23/2020 mupirocin (BACTROBAN) 2 % ointment Appy to each nostril with a cotton swab twice daily 5 days prior to surgery 06/12/2017 10/12/2018 oxyCODONE-acetam inophen (PERCOCET) 5-325 mg per tabletIndication s:Pain TAKE 1 TABLET EVERY 4 HOURS NEEDED FOR PAIN. 05/11/2017 11/24/2018 traMADol (ULTRAM) 50 mg tablet TAKE 1 TO 2 TABLETS EVERY 4 TO 6 HOURS NEEDED FOR PAIN. 05/21/2017 11/24/2018 warfarin (COUMADIN) 2 mg tablet take 2.5 tabs(total dose=5mg)orall y day before surgery at noon,after surgery take your coumadin as directed in the hospital daily@5 pm 06/19/2017 11/24/2018 documented as of this encounter Discharge Disposition Disposition Code Departure Means Destination Discharge to home, home health skilled care documented in this encounter Progress Notes * Carolyn Randolph - 05/21/2018 12:37 PM CDT Spiritual Care Note Radiator Cleaner Carolyn Randolph MRaffaeleDiv. [facility] [phone] 12:00 05/21/18 1400 Time Spent Start Time 1100 Stop Time 1130 Time Calculation (min) 30 min Patient Spiritual Assessment Spirituality Assessed Unable to assess Spiritual Needs Bereavement/grief (J. just learned of son's as she finished procedure.) Clinical Encounter Type Visited With Patient and family together (spouse with her.) Response Type Crisis visit Crisis Visit (son , probably of alcoholism and diabetes. 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 too distraught for meaningful dialogue anxious for d/c) Interventions Offer emotional support;Active listening (1 parking pass. ) 05/21/18 1400 Time Spent Start Time 1100 Stop Time 1130 Time Calculation (min) 30 min Patient Spiritual Assessment Spirituality Assessed Unable to assess Spiritual Needs Bereavement/grief (Desi just learned of son's as she finished procedure.) Clinical Encounter Type Visited With Patient and family together (spouse with her.) Response Type Crisis visit Crisis Visit (son , probably of alcoholism and diabetes. 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 too distraught for meaningful dialogue anxious for d/c) Interventions Offer emotional support;Active listening (1 parking pass. ) * Vicki Mustafa RN - 05/21/2018 11:27 AM CDT Pt and spouse ready to leave, discharge paperwork given to pt's . Verbalized understanding, phone numbers to reach IR with any questions on paperwork and circled. RN concerned pt and spouse will not remember discharge instructions, stressed the phone numbers to call with questions. Pt's spouse to get car, pt taken to front of hospital by nursing management, in wheelchair. * Vicki Mustafa RN - 05/21/2018 11:23 AM CDT 1045: Pt and spouse received phone call informing them their son had . Pt and spouse extremelyemotional/tearful. Spouse to bedside, Dr. Diaz contacted and informed of events and requested an earlier discharge.Pt had been up to the restroom, ambulated without difficulty. VSS, right neck insertion site, dry and intact. Pastoral care contacted. Per Dr. Diaz, ok to discharge pt now. * Shana Gardiner RN - 05/21/2018 11:00 AM CDT Pt received a phone call that her son . Pt's called to BS. DWAYNE Ramirez called to BS. Pastoral services paged. * Shana Gardiner RN - 05/21/2018 10:36 AM CDT Pt denies complaints or pain. Right neck with exofin intact no hematoma, no bleeding noted. Pt ambulated to without diff. Dr Diaz to [place] to speak with pt documented in this encounter Miscellaneous Notes * Post-Procedure Note - Venita Armenta MD - 05/21/2018 9:58 AM CDT Radiology Brief Post Procedure Note Attending: Scottie Diaz MD Child Support Investigator: Venita Armenta MD Sedation/Anesthesia: Mod Sedation Pre-Op/Pre-Procedure Diagnosis: No longer needs IVC filter Post-Op/Post-Procedure Diagnosis: No longer needs IVC filter Procedure Performed: IVC filter retrieval Procedure Findings: Successful retrieval of IVC filter using loop-snare technique Complications: None Estimated Blood Loss: minimal Specimens: None Condition: Stable Full report to follow. * Pre-Procedure Note - Venita Armenta MD - 05/21/2018 8:10 AM CDT Radiology Long Sedation Form Indication: No longer needs IVC filter Planned Procedure: IVC filter removal Planned Sedation/Anesthesia: moderate sedation History: 72 year old female with history of lower extremity DVT, who had IVC filter placed due to having recent orthopedic surgery. She no longer needs the IVC filter. PMH/PSH: Past Medical History: Diagnosis Date ??? Anemia ??? Arthritis ??? Blood clot associated with vein wall inflammation ??? Cataract ??? Depression ??? Diabetes mellitus (CMS/HCC) ??? History of transfusion ??? Hypertension ??? Thalassemia minor ??? Thyroid disease hypothyroidism Past Surgical History: Procedure Laterality Date ??? CARPAL TUNNEL RELEASE bilat. ??? CHOLECYSTECTOMY ??? HYSTERECTOMY ??? KNEE ARTHROSCOPY bilat. knee replacement ??? THYROIDECTOMY, PARTIAL ROS: Review of systems per HPI and otherwise all other systems are negative Allergies: Celebrex [celecoxib] Current Meds: No current facility-administered medications for this encounter. Physical exam: AAOx3, Minimal bilateral lower extremity edema, Airway Assessment: normal Labs/Imaging: recent CT demonstrates infrarenal IVC filter with its tip along the posterior end of the IVC Assessment: Patient is ready for IVC filter removal today ASA Score: 2 NPO time: after midnight Benefits, risks and alternatives of procedure and planned sedation have been discussed with the patient and/or their sales representative raw fibers. All questions answered and they agree to proceed. documented in this encounter Plan of Treatment Not on file documented as of this encounter Procedures Procedure Name Priority Date/Time Associated Diagnosis Comments REMOVE VENA CAVA FILTER Schedule Routine, Read Routine (OP Routine) 05/21/2018 8:35 AM CDT S/P IVC filter documented in this encounter Results * IR Remove Vena Cava Filter (05/21/2018 8:35 AM CDT) Anatomical Region Laterality Modality Body N/A X-Ray Angiograph y 05/21/2018 6:41 PM CDT Impressions 05/22/2018 8:01 PM CDT Successful retrieval of filter from the inferior vena cava. PLAN: Recommendations for anticoagulation as appropriate. Electronically signed by: Scottie Diaz M.D. Narrative 05/22/2018 8:01 PM CDT EXAMINATION: ??INFERIOR VENA CAVAGRAM AND INFERIOR VENA CAVAL FILTER RETRIEVAL HISTORY/INDICATION: ??72-year-old female with infrarenal IVC filter placed after being diagnosed with lower extremity DVTs and could not be anticoagulated due to recent postoperative state, now no longer requires IVC filter ATTENDING PRESENCE: Scottie Diaz MD, the attending radiologist was present from the beginning to the end of the procedure. ?? SEDATION: Moderate sedation was administered under the attending physician's direction and continuous monitoring by a trained nurse specialist who was independent from those actually performing the procedure. ??Total monitored sedation time was 60 minutes. TECHNIQUE: ??The risks, benefits and alternatives were discussed and informed consent was obtained. Prior to beginning the procedure, [place] Protocol was performed to confirm the patient's identity and the planned procedure. ??The fluoroscopy time has been recorded in the electronic medical record. Maximum sterile barriers including cap, mask, hand hygiene, sterile gloves, sterile gown, large sterile drape and 2% chlorhexidine for cutaneous antisepsis were used. Prior to the procedure, the central veins were evaluated by ultrasound. The recorded image shows a patent vessel. The right ??neck was sterilely prepped, draped and infiltrated with 1% lidocaine. The right ??internal jugular vein was then accessed using real-time ultrasound guidance and a guidewire passed centrally. A catheter was advanced into the IVC and DSA images obtained. The catheter was then exchanged for the filter retrieval sheath. ??A snare was initially used to attempt grasp the hook of the filter, which was unsuccessful. ??Following multiple unsuccessful attempts, a Gruber-1 catheter was introduced into the sheath with a guidewire, and the end of the guidewire was grasped with the snare, creating a loop snare device, which was used to successfully grasp the top portion of the IVC filter. ??The sheath was then advanced over the filter to close it down and retract the legs from the wall of the IVC. The filter was then removed through the sheath. A completion venogram was obtained. At the end of the procedure, the sheath was removed and pressure held until hemostasis was achieved. ESTIMATED BLOOD LOSS: Minimal. CONDITION: Stable DISCHARGED TO: ?? Outpatient recovery, then to home. FINDINGS: Initial IVCgram shows the filter in the infrarenal IVC. There is no intraluminal thrombus. ?? Venogram done after retrieval of the filter shows mild vasospasm, but no significant no abnormality of the IVC wall. Procedure Note Scottie Diaz MD - 05/22/2018 EXAMINATION: INFERIOR VENA CAVAGRAM AND INFERIOR VENA CAVAL FILTER RETRIEVAL HISTORY/INDICATION: 72-year-old female with infrarenal IVC filter placed after being diagnosed with lower extremity DVTs and could not be anticoagulated due to recent postoperative state, now no longer requires IVC filter ATTENDING PRESENCE: Scottie Diaz MD, the attending radiologist was present from the beginning to the end of the procedure. SEDATION: Moderate sedation was administered under the attending physician's direction and continuous monitoring by a trained nurse specialist who was independent from those actually performing the procedure. Total monitored sedation time was 60 minutes. TECHNIQUE: The risks, benefits and alternatives were discussed and informed consent was obtained. Prior to beginning the procedure, [place] Protocol was performed to confirm the patient's identity and the planned procedure. The fluoroscopy time has been recorded in the electronic medical record. Maximum sterile barriers including cap, mask, hand hygiene, sterile gloves, sterile gown, large sterile drape and 2% chlorhexidine for cutaneous antisepsis were used. Prior to the procedure, the central veins were evaluated by ultrasound. The recorded image shows a patent vessel. The right neck was sterilely prepped, draped and infiltrated with 1% lidocaine. The right internal jugular vein was then accessed using real-time ultrasound guidance and a guidewire passed centrally. A catheter was advanced into the IVC and DSA images obtained. The catheter was then exchanged for the filter retrieval sheath. A snare was initially used to attempt grasp the hook of the filter, which was unsuccessful. Following multiple unsuccessful attempts, a Gruber-1 catheter was introduced into the sheath with a guidewire, and the end of the guidewire was grasped with the snare, creating a loop snare device, which was used to successfully grasp the top portion of the IVC filter. The sheath was then advanced over the filter to close it down and retract the legs from the wall of the IVC. The filter was then removed through the sheath. A completion venogram was obtained. At the end of the procedure, the sheath was removed and pressure held until hemostasis was achieved. ESTIMATED BLOOD LOSS: Minimal. CONDITION: Stable DISCHARGED TO: Outpatient recovery, then to home. FINDINGS: Initial IVCgram shows the filter in the infrarenal IVC. There is no intraluminal thrombus. Venogram done after retrieval of the filter shows mild vasospasm, but no significant no abnormality of the IVC wall. IMPRESSION: Successful retrieval of filter from the inferior vena cava. PLAN: Recommendations for anticoagulation as appropriate. Electronically signed by: Scottie Diaz M.D. Paras Simon MD IM IR PROCEDURES Final Result documented in this encounter Visit Diagnoses Diagnosis S/P IVC filter documented in this encounter Administered Medications Inactive Administered Medications - up to 3 most recent administrations Medication Order MAR Action Action Date Dose Rate Site fentaNYL (SUBLIMAZE) preservative free injection intravenous, Code/trauma/sedation medication, Starting on Thu05/21/18 at 0838 Given 05/21/2018 9:47 AM CDT 50 mcg Given 05/21/2018 9:22 AM CDT 50 mcg Given 05/21/2018 8:47 AM CDT 50 mcg heparin 1,000 unit/mL injection Code/trauma/sedation medication, Starting on Thu05/21/18 at 0922 Given 05/21/2018 9:22 AM CDT 3,000 Units lidocaine PF (XYLOCAINE) 10 mg/mL (1 %) preservative free injection Code/trauma/sedation medication, Starting on Thu05/21/18 at 0841, Intra-Procedure (IR), Indications: Administration of Local AnesthesiaIndications:Administrat ion of Local Anesthesia Given 05/21/2018 8:41 AM CDT 10 mL Right Neck midazolam (VERSED) preservative free injection intravenous, Code/trauma/sedation medication, Starting on Thu05/21/18 at 0838, Intra-Procedure (IR) Given 05/21/2018 9:47 AM CDT 1 mg Given 05/21/2018 9:22 AM CDT 1 mg Given 05/21/2018 8:47 AM CDT 1 mg documented in this encounter Active and Recently Administered Medications Times are shown in CDT. PRN Medication Order 05/19/2018 05/20/2018 05/21/2018 fentaNYL (SUBLIMAZE) preservative free injection (COMPLETED) intravenous, Code/trauma/sedation medication, Starting on Thu05/21/18 at 0838 0838 (Given - Provid er: Agnes Brown RN)0847 (Given - Provider: Agnes Brown RN)0922 (Given - Provider: Agnes Brown, SHAYLA)0947 (Given - Provider: Agnes Brown, SHAYLA) heparin 1,000 unit/mL injection (COMPLETED) Code/trauma/sedation medication, Starting on Thu05/21/18 at 0922 0922 (Given - Provid er: Agnes Brown RN) lidocaine PF (XYLOCAINE) 10 mg/mL (1 %) preservative free injection (COMPLETED) Code/trauma/sedation medication, Starting on Thu05/21/18 at 0841, Intra-Procedure (IR), Indications: Administration of Local Anesthesia 0841 (Given - Provid er: Venita Armenta MD) midazolam (VERSED) preservative free injection (COMPLETED) intravenous, Code/trauma/sedation medication, Starting on Thu05/21/18 at 0838, Intra-Procedure (IR) 0838 (Given - Provid er: Agnes Brown RN)0847 (Given - Provider: Agnes Brown RN)0922 (Given - Provider: Agnes Brown RN)0947 (Given - Provider: Agnes Brown, RN) documented in this encounter Care Teams Dress Shoe Inspector Relationship Specialty Start Date End Date Willy Cummings MD [address] [place] [address] PCP - General 08/06/17 12/20/19 documented as of this encounter
--- OUTSIDE RECORDS SUMMARY | 2024-10-31 03:52 | XMS_ITS | Encounter Summary ---
Author Organization [facility] Address [address] [place] [address] Care Team Providers Care Larry Operator Name Role Phone Willy Cummings MD Primary Care Provider [phone]- [phone] Reason for Referral * Diagnostic Imaging (Routine) - Closed Specialty Diagnoses / Procedures Referred By Contac t Referred To Contact Radiology Diagnoses Cervical spinal stenosis Procedures MRI Cervical Spine WO Contrast Leobardo Perez MD Phone: tel: fax: [address] [address] Referral ID Status Reason Start Date Expiration Date Visits Re quested Visits Authorized [id number] Closed 10/12/2018 04/22/2020 1 1 DISASTER RECOVERY MANAGER * Diagnostic Imaging (Routine) - Closed Specialty Diagnoses / Procedures Referred By Contac t Referred To Contact Radiology Diagnoses Spinal stenosis of lumbar region, unspecified whether neurogenic claudication present Procedures MRI Lumbar Spine WO Contrast Leobardo Perez MD Phone: tel: fax: [address] [address] Referral ID Status Reason Start Date Expiration Date Visits Re quested Visits Authorized [id number] Closed 10/12/2018 04/22/2020 1 1 DISASTER RECOVERY MANAGER * Diagnostic Imaging (Routine) - Closed Specialty Diagnoses / Procedures Referred By Contac t Referred To Contact Radiology Diagnoses Cerebral ventriculomegaly Procedures MRI Brain and Neuro 3D W WO Contrast MRI Brain W WO Contrast Leobardo Perez MD Phone: tel: fax: [address] [address] Referral ID Status Reason Start Date Expiration Date Visits Re quested Visits Authorized [id number] Closed 10/12/2018 04/22/2020 1 1 DISASTER RECOVERY MANAGER Reason for Visit * Diagnostic Imaging (Routine) - Closed Specialty Diagnoses / Procedures Referred By Devin laboy Referred To Contact Radiology Diagnoses Cerebral ventriculomegaly Procedures MRI Brain and Neuro 3D W WO Contrast MRI Brain W WO Contrast Leobardo Perez MD Phone: tel: fax: [address] [phone] Referral ID Status Reason Start Date Expiration Date Visits Re quested Visits Authorized [id number] Closed 10/12/2018 04/22/2020 1 1 Encounter Details Date Type Department Care Team (Latest Contact Info) Description 10/13/2018 3:42 PM IT DISASTER RECOVERY MANAGER - 10/13/2018 11:59 PM IT DISASTER RECOVERY MANAGER Hospital Encounter [facility] Radiology [address] [place] [address] Leobardo Perez MD [address] [facility] [address] [place] [address] Cerebral ventriculomegaly; Spinal stenosis of lumbar region, unspecified whether neurogenic claudication present; Cervical spinal stenosis Discharge Disposition: Discharge to home or self care Social History Tobacco Use Types Packs/Day Years Used Date Smoking Tobacco: Former Smokeless Tobacco: Never Alcohol Use Standard Drinks/Week Comments Yes 1 (1 standard drink = 0.6 oz pur e alcohol) Comments Unknown Sex and Gender Information Value Date Recorded Sex Assigned at Not on file Legal Sex Female 1:04 AM IT DISASTER RECOVERY MANAGER Gender Identity Not on file Sexual [...] as needed. 1 09/12/2018 9 FLUZONE HIGH-DOSE , PF, 180 mcg/0.5 mL syringe TO BE [...] Name Priority Date/Time Associated Diagnosis Comments MRI BRAIN AND VOLUMETRIC W WO CONTRAST Schedule Routine, Read Routine (OP Routine) 10/13/2018 4:30 PM IT DISASTER RECOVERY MANAGER Cerebral ventriculomegaly MRI LUMBAR SPINE WO CONTRAST Schedule Routine, Read Routine (OP Routine) 10/13/2018 4:30 PM IT DISASTER RECOVERY MANAGER Spinal stenosis of lumbar region, unspecified whether neurogenic claudication present MRI CERVICAL SPINE WO CONTRAST Schedule Routine, Read Routine (OP Routine) 10/13/2018 4:30 PM IT DISASTER RECOVERY MANAGER Cervical spinal stenosis POCT CREATININE FOR CONTRAST EVALUATION Routine Gen Lab 10/13/2018 4:12 PM IT DISASTER RECOVERY MANAGER documented in this encounter Results * MRI Cervical Spine WO Contrast (10/13/2018 4:30 PM IT DISASTER RECOVERY MANAGER) Anatomical Region Laterality Modality Spine N/A Magnetic Resonan ce 10/14/2018 11:0 8 AM IT DISASTER RECOVERY MANAGER Addenda Addendum by Zhang Gomez MD PhD on 10/18/2018 1:25 PM IT DISASTER RECOVERY MANAGER ADDENDUM: ??Issued 09/18/2018 at 12:[address] Gomez and Dr. Bills. T1-weighted sagittal MPRage images of the brain were postprocessed on a separate 3D workstation to generate segmented brain volumes using [employer]. ??Results were compared to a normative cohort from [facility]. ??Graphs were sent to [employer]. Left hippocampus volume: 15th percentile, Between 1-2 [...] Gomez M.D, PHD Impressions 10/14/2018 12:27 PM IT DISASTER RECOVERY MANAGER 1. Stable ventriculomegaly, out of proportion to [...] Connors M.D., Ph.D. Narrative 10/14/2018 12:27 PM IT DISASTER RECOVERY MANAGER EXAMINATION: Magnetic resonance imaging (MRI) of the [...] facet arthropathy. There is mild left and drfu-rw-yijhlzrs right neuroforaminal stenosis. There is no spinal [...] facet arthropathy. There is mild left and jgod-jh-pbhqracw right neuroforaminal stenosis. There is no spinal [...] Lumbar Spine WO Contrast (10/13/2018 4:30 PM IT DISASTER RECOVERY MANAGER) Anatomical Region Laterality Modality Spine N/A Magnetic Resonan ce 10/14/2018 11:0 8 AM IT DISASTER RECOVERY MANAGER Addenda Addendum by Zhang Gomez MD PhD on 10/18/2018 1:25 PM IT DISASTER RECOVERY MANAGER ADDENDUM: ??Issued 09/18/2018 at 12:[address] Gomez and Dr. Bills. T1-weighted sagittal MPRage images of the brain were postprocessed on a separate 3D workstation to generate segmented brain volumes using [employer]. ??Results were compared to a normative cohort from [facility]. ??Graphs were sent to [employer]. Left hippocampus volume: 15th percentile, Between 1-2 [...] Gomez M.D, PHD Impressions 10/14/2018 12:27 PM IT DISASTER RECOVERY MANAGER 1. Stable ventriculomegaly, out of proportion to [...] Connors M.D., Ph.D. Narrative 10/14/2018 12:27 PM IT DISASTER RECOVERY MANAGER EXAMINATION: Magnetic resonance imaging (MRI) of the [...] facet arthropathy. There is mild left and huon-yd-xavidpgj right neuroforaminal stenosis. There is no spinal [...] facet arthropathy. There is mild left and mjvf-rl-mxmuqhjz right neuroforaminal stenosis. There is no spinal [...] Edited Res ult - Final * MRI Brain and Neuro 3D W WO Contrast (10/13/2018 4:30 PM IT DISASTER RECOVERY MANAGER) Anatomical Region Laterality Modality Head and Neck N/A Magnetic Resonan ce 10/14/2018 11:0 8 AM IT DISASTER RECOVERY MANAGER Addenda Addendum by Zhang Gomez MD PhD on 10/18/2018 1:25 PM IT DISASTER RECOVERY MANAGER ADDENDUM: ??Issued 09/18/2018 at 12:[address] Gomez and Dr. Bills. T1-weighted sagittal MPRage images of the brain were postprocessed on a separate 3D workstation to generate segmented brain volumes using [employer]. ??Results were compared to a normative cohort from [facility]. ??Graphs were sent to [employer]. Left hippocampus volume: 15th percentile, Between 1-2 [...] by: Kirill Bills Electronically signed by: Zhang Goemz M.D, PHD Impressions 10/14/2018 12:27 PM IT DISASTER RECOVERY MANAGER 1. Stable ventriculomegaly, out of proportion to [...] Connors M.D., Ph.D. Narrative 10/14/2018 12:27 PM IT DISASTER RECOVERY MANAGER EXAMINATION: Magnetic resonance imaging (MRI) of the [...] facet arthropathy. There is mild left and vgvj-zj-pkufrone right neuroforaminal stenosis. There is no spinal [...] facet arthropathy. There is mild left and yvka-ct-ouskihvv right neuroforaminal stenosis. There is no spinal [...] PROCEDURES Edited Res ult - Final * POCT creatinine for contrast evaluation (10/13/2018 4:12 PM IT DISASTER RECOVERY MANAGER) Creatinine POC 1.1 0.6 - 1.1 mg/dL [facility] Blood specimen (specimen) 10/13/2018 4:12 PM IT DISASTER RECOVERY MANAGER 10/13/2018 4:12 PM IT DISASTER RECOVERY MANAGER Narrative [facility] - 10/13/2018 4:29 PM IT DISASTER RECOVERY MANAGER Leobardo Perez MD POINT OF CARE TEST ORDERABLES Final Result [facility] Department [place] [address] documented in this encounter Visit Diagnoses Diagnosis Cerebral ventriculomegaly Other conditions of brain Spinal stenosis of lumbar region, unspecified whether neurogenic claudication present Cervical spinal stenosis Spinal stenosis in cervical region documented in this encounter Administered Medications Inactive Administered Medications - up to 3 most recent administrations Medication Order MAR Action Action Date Dose Rate Site gadoterate meglumine (DOTAREM) 0.5 mmol/mL injection 18.14 mL 18.14 mL (0.1 mmol/kg ? 90.7 kg), intravenous, Once in imaging, contrast, Starting on Thu10/13/18 at 1629, For 1 dose, Imaging Protocol Orders Given 10/13/2018 5:38 PM IT DISASTER RECOVERY MANAGER 18 mL documented in this encounter Orders Medications Ordered That Tobi ht Not Have Been Administered Count Last Ordered Date First Ordered Date gadoterate meglumine (DOTARE M) 0.5 mmol/mL injection 18.14 mL 3 10/13/2018 documented in this encounter Care Teams Larry Operator Relationship Specialty Start Date End Date Willy Cummings MD [address] [place] [address] PCP - General 08/06/17 12/20/19 documented as of this encounter
--- OUTSIDE RECORDS SUMMARY | 2024-10-31 03:52 | XMS_ITS | Encounter Summary ---
Author Organization [facility] Address [address] [place] [address] Phone Care Team Providers Care Copywriting Intern Name Role Phone Willy Cummings MD Primary Care Provider +1- [phone] Encounter Details Date Type Department Care Team (Late st Contact Info) Description 10/14/2018 Telephone [facility] Neurosurgery [address] [facility] Advanced Medicine 6th [place] [address] [place] [address] Renea Collado CMA Social History Tobacco Use Types Packs/Day Years Used Date Smoking Tobacco: Former Smokeless Tobacco: Never Alcohol Use Standard Drinks/Week Comments Yes 1 (1 standard drink = 0.6 oz pur e alcohol) Comments Unknown Sex and Gender Information Value Date Recorded Sex Assigned at Not on file Legal Sex Female 1:04 AM OFFSET PLATE MAKER Gender Identity Not on file Sexual Orientation Not on file Occupation Industry Job Start Date Job End Date retired Not on file Not on file Not on file documented as of this encounter Miscellaneous Notes * Telephone Encounter - Rama Horne RN - 10/15/2018 2:17 PM OFFSET PLATE MAKER Spoke with patient and reviewed results and that ABDIEL still wants her to see Dr. 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 She was very relieved and pleased with this plan. She will call if she doesn't hearfrom Dr. Mantilla's office by the end of the first week of October. ET PLATE MAKER * Telephone Encounter - Gale Johnson MA - 10/15/2018 1:28 PM CST Patient called and left a vm returning your call. ET PLATE MAKER * Telephone Encounter - Rama Horne RN - 10/15/2018 12:52 PM OFFSET PLATE MAKER Left voicemail to discuss. ET PLATE MAKER * Telephone Encounter - Rama Horne RN - 10/14/2018 4:51 PM OFFSET PLATE MAKER Emailed ABDIEL to review. Will call her with results. ET PLATE MAKER * Telephone Encounter - Renea Collado MA - 10/14/2018 4:09 PM CST Pt called and is anxious to have a call back with results of imaging. ET PLATE MAKER documented in this encounter Plan of Treatment Not on file documented as of this encounter Visit Diagnoses Not on filedocumented in this encounter Care Teams Copywriting Intern Relationship Specialty Start Date End Date Willy Cummings MD [address] [place] [address] PCP - General 08/06/17 12/20/19 documented as of this encounter
--- OUTSIDE RECORDS SUMMARY | 2024-10-31 03:52 | XMS_ITS | Encounter Summary ---
Author Organization [facility] Address [address] [place] [address] Care Team Providers Care Car Salesperson Name Role Phone Willy Cummings MD Primary Care Provider +1- [phone] Encounter Details Date Type Department Care Team (Late st Contact Info) Description 06/04/2017 9:17 AM CDT - 06/04/2017 11:59 PM T Hospital Encounter [facility] INTERIM [phone] Yousif Etienne MD [address] [place] [address] Discharge Disposition: Discharge to home or self care Social History Tobacco Use Types Packs/Day Years Used Date Smoking Tobacco: Never Comments Unknown Sex and Gender Information Value Date Recorded Sex Assigned at Not on file Legal Sex Female 1:04 AM SUPPORT SERVICES REP Gender Identity Not on file Sexual Orientation Not on file documented as of this encounter Medications at Time of Discharge gabapentin (NEURONTIN) 300 mg capsule TAKE ONE CAPSULE 3 TIMES A DAY 10/13/2013 10/12/2018 oxyCODONE-acetami nophen (PERCOCET) 5-325 mg per tabletIndications :Pain TAKE 1 TABLET EVERY 4 HOURS NEEDED FOR PAIN. 05/11/2017 11/24/2018 traMADol (ULTRAM) 50 mg tablet TAKE 1 TO 2 TABLETS EVERY 4 TO 6 HOURS NEEDED FOR PAIN. 05/21/2017 11/24/2018 documented as of this encounter Discharge Disposition Disposition Code Departure Means Destination Discharge to home or self care documented in this encounter Plan of Treatment Not on file documented as of this encounter Procedures Procedure Name Priority Date/Time Associated Diagnosis Comments XR KNEE 1 OR 2 VW Routine 06/04/2017 3:1 0 PM CDT documented in this encounter Results * XR Knee 1 Or 2 VW (06/04/2017 3:10 PM CDT) Anatomical Region Laterality Modality N/A Radiographic Zhane ging 06/04/2017 3:10 PM CDT Narrative 06/04/2017 3:10 PM CDT KELLY WU M.D. ARMAAN HOBSON M.D. FINAL REPORT The radiology attending physician has personally reviewed this study, and has reviewed and/or edited this written report and agrees with it. ACC# ??Date Time ??Exam [id number] Jun 04, 2017 10:10:00 [id number] Knee 1 or 2 views R ACC# ??Date Time ??Exam [id number] Jun 04, 2017 10:10:00 [id number] Knee 1 or 2 views R EXAMINATION: ?Right knee 1 or 2 views HISTORY: ??Infected right knee arthroplasty FINDINGS: ?? Two views of the right knee are submitted for interpretation with comparisons made to the prior radiographs dated 05/14/2017. There is unchanged explanted right knee arthroplasty with placement of antibiotics cement spacer. Right knee effusion and soft tissue swelling have decreased. There is no acute fracture. ?? IMPRESSION: Unchanged explanted right knee arthroplasty with antibiotic cement spacer. ?? Requested By: SAMIA COTTON M.D. Dictated By: ?? ARMAAN HOBSON M.D. ??on Jun 04 2017 10:54A This document has been electronically signed by: KELLY WU M.D. on Jun 04 2017 11:14A [id number] MOSHER M.D. FINAL REPORT The radiology attending physician has personally reviewed this study, and has reviewed and/or edited this written report and agrees with it. Attending: ??CHANDAN, ??YOUSIF Requesting: ??GABINO, ??SAMIA Requesting Fax: ?? Attending Fax: ?? Attending ID: ??[id number] Requesting ID: ??[id number] Report To 1 ID: ??[id number] ? Report To 1 Name: ??, ?? Report To 1 FAX: ?? NextGen Order #: ?? Procedure Note Miscellaneous, Not In File - 08/21/2017 KELLY WU M.D. ARMAAN HOBSON M.D. FINAL REPORT The radiology attending physician has personally reviewed this study, and has reviewed and/or edited this written report and agrees with it. ACC# Date Time Exam [id number] Jun 04, 2017 10:10:00 [id number] Knee 1 or 2 views R ACC# Date Time Exam [id number] Jun 04, 2017 10:10:00 [id number] Knee 1 or 2 views R EXAMINATION: Right knee 1 or 2 views HISTORY: Infected right knee arthroplasty FINDINGS: Two views of the right knee are submitted for interpretation with comparisons made to the prior radiographs dated 05/14/2017. There is unchanged explanted right knee arthroplasty with placement of antibiotics cement spacer. Right knee effusion and soft tissue swelling have decreased. There is no acute fracture. IMPRESSION: Unchanged explanted right knee arthroplasty with antibiotic cementspacer. Requested By: SAMIA COTTON M.D. Dictated By: ARMAAN HOBSON M.D. on Jun 04 2017 10:54A This document has been electronically signed by: KELLY WU M.D. on Jun 04 2017 11:14A [id number] MOSHER M.D. FINAL REPORT The radiology attending physician has personally reviewed this study, and has reviewed and/or edited this written report and agrees with it. Attending: YOUSIF ETIENNE Requesting: SAMIA COTTON Requesting Fax: Attending Fax: Attending ID: [id number] Requesting ID: [id number] Report To 1 ID: [id number] Report To 1 Name: , Report To 1 FAX: NextGen Order #: Samia Cotton MD IMG XR PROCEDURES Edited Result - Final documented in this encounter Visit Diagnoses Not on filedocumented in this encounter Care Teams Car Salesperson Relationship Specialty Start Date End Date Willy Cummings MD [address] [place] [address] PCP - General 06/04/17 06/04/17 documented as of this encounter
--- OUTSIDE RECORDS SUMMARY | 2024-10-31 03:52 | XMS_ITS | Encounter Summary ---
Author Organization [facility] Healthcare Address [address] [place] [address] Care Team Providers Care Sand Worker Name Role Phone Willy Cummings MD Primary Care Provider [phone]- [phone] Brittny Salazar MD Primary Care Provider [phone] [phone] Willy Cummings MD Primary Care Provider [phone]- [phone] Encounter Details Date Type Department Care Team (Late st Contact Info) Description 06/22/2017 10:59 AM CDT - 06/25/2017 6:57 PM CDT Hospital Encounter [address] [id number] Lorena Etienne MD [address] [place] [address] Discharge Disposition: Discharge to home or self care Social History Tobacco Use Types Packs/Day Years Used Date Smoking Tobacco: Never Comments Unknown Sex and Gender Information Value Date Recorded Sex Assigned at Not on file 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 Gender Identity Not on file Sexual Orientation Not on file documented as of this encounter Last Filed Vital Signs Vital Sign Reading Time Taken Comments Blood Pressure 116/63 06/25/2017 12:30 PM CDT Pulse 83 06/25/2017 12:30 PM CDT Temperature - - Respiratory Rate - - Oxygen Saturation 93% 06/25/2017 12: 30 PM CDT Inhaled Oxygen Concentration - - Weight 80.7 kg (177 lb 15.6 oz) 06/22/2017 8:46 PM CDT Height 162.6 cm (5' 4 ) 06/22/2017 8:46 PM CDT Body Mass Index 30.55 06/22/2017 8:46 PM CDT documented in this encounter Medications at Time of Discharge gabapentin (NEURONTIN) 300 mg capsule TAKE ONE CAPSULE 3 TIMES A DAY 10/13/2013 10/12/2018 mupirocin (BACTROBAN) 2 % ointment [...] or self care documented in this encounter Miscellaneous Notes * Op Note - Provider, MD Clifford - 06/22/2017 12:00 AM CDT Patient: JONNIE ALEX Reg No: [id number] H #: [id number] Admit Dt.: 06/22/2017 : 1945 Pt Type: IP Room No: 7350-01 Attending: Lorena Etienne M.D. Surgeon: Lorena Etienne M.D. Dictating: Lorena Etienne M.D. Service Dt: 06/22/2017 OPERATIVE REPORT FACILITY ID: [facility] SURGEON Lorena Etienne MD PREOPERATIVE DIAGNOSIS Right knee infection status post explant and treatment with antibiotic spacer. POSTOPERATIVE DIAGNOSIS Right knee infection status post explant and treatment with antibiotic spacer. PROCEDURE Reimplantation of right knee implants, Jakub NexGen LCCK system, including size D right femoral component, with 5 mm distal augments medially and laterally, and 18 x 100 mm straight stem extension, size 3 AP wedged stemmed tibial component with 12 x 100 mm straight stem extension, 32 x 8.5 mm all poly patella, 17 mm LCCK tibial polyethylene articular surface, and Palacos cement. ANESTHESIA General. COMPLICATIONS None. CONDITION Stable. OPERATIVE INDICATIONS The patient is a lady who previously underwent a right total knee explant for infection and has undergone IV antibiotic treatment with her cement spacer. She wished to undergo reimplantation, understanding that the risks included, but were not limited to, recurrent infection, wound healing complications, failure of hardware or fixation, and need for further surgery. OPERATIVE TECHNIQUE On the day of surgery the patient was brought to the operating room where anesthesia was administered and antibiotics were given. She was prepped and draped in the usual sterile fashion and a tourniquet was inflated on the right thigh. The prior midline anterior incision was reopened sharply and dissection was carried down through the subcutaneous tissues. A median parapatellar arthrotomy was performed, followed by a standard medial release. Scar tissue was debrided from the beneath the patellar tendon insertion and from the medial and lateral gutters. All tissue appeared healthy with no purulence or evidence of infection. An osteotome was used to break apart and dislodge the cement spacer, which was easily and atraumatically removed. The proximal tibia was exposed and reamed, after which a freshening cut was made. The plateau was prepped and a trial was fitted. Attention was then directed to the femur, and the canal was reamed. The distal femur was fitted and freshening cuts were made as needed. It was determined that distal augments would be required, so these were included in the trial component that was assembled and inserted. With both trials in place, the knee was assembled and found to fit appropriately, with sufficient ligamentous stability to support the LCCK. Extension and flexion gaps were reasonable as was patellar height and tracking. Therefore, the trials were removed and all bony surfaces were thoroughly irrigated. It should also be noted that a thorough debridement of the knee joint was performed to remove any residual, potentially infected material. The patella was cut and sized, and the lug holes were drilled medially in order to optimize tracking. The tibial, femoral, and patellar components were then sequentially cemented into place and allowed to dry with a polyethylene trial in place. The cement was allowed to dry with the knee in full extension and a dilute Betadine lavage was performed. The knee was then ranged and the final polyethylene was selected to optimize soft tissue tension and inserted. It should be noted that prior to inserting the final polyethylene the tourniquet was let down and hemostasis was achieved. A medium Hemovac drain was placed, and the arthrotomy was closed using #1 Vicryl oversewn with Monocryl oversewn with STRATAFIX. The subcutaneous tissues were closed using Monocryl followed by yuan for the skin. Sterile dressings and an Yonis wrap were applied, after which the patient was awakened and brought back to the recovery room, having tolerated the procedure well. ESTIMATED BLOOD LOSS 150. I was present for all critical portions of the case, from incision until closure, and immediately available thereafter. Electronically Authenticated and Edited by: Lorena Etienne MD On 07/07/2017 06:42 PM CDT Lorena Etienne M.D. CAC:[facility] #[id number] Editing MT: TD: 07/03/2017 12:20 PM cc: Lorena Etienne M.D. Electronically signed by Interface, Associate Professor Of Biblical Studies Conversion at 04/16/2018 2:01 PM CDT documented in this encounter Plan of Treatment Not on file documented as of this encounter Procedures Procedure Name Priority Date/Time Associated Diagnosis Comments DIFFERENTIAL AUTO STAT 06/25/2017 4:4 7 PM CDT CBC WITH AUTO DIFFERENTIAL STAT 06/25/2017 4:47 PM CDT TRANSFUSION EVENT Routine 06/25/2017 3:4 6 PM CDT DIFFERENTIAL AUTO After X-Ray 06/25/2017 12:11 AM CDT CBC WITH AUTO DIFFERENTIAL After X-Ray 06/25/2017 12:11 AM CDT PROTIME-INR After X-Ray 06/25/2017 12:11 AM CDT BASIC METABOLIC PANEL After X-Ray 06/25/2017 12:11 AM CDT DISCHARGE LABORATORY CUMULATIVE REPORT 06/25/2017 12:00 AM CDT TRANSFUSION EVENT Routine 06/24/2017 3:1 2 PM CDT PACKED RED BLOOD CELLS 2 After X-Ray 06/24/2017 6:05 AM CDT DIFFERENTIAL AUTO After X-Ray 06/23/2017 11:06 PM CDT CBC WITH AUTO DIFFERENTIAL After X-Ray 06/23/2017 11:06 PM CDT PROTIME-INR After X-Ray 06/23/2017 11:06 PM CDT BASIC METABOLIC PANEL After X-Ray 06/23/2017 11:06 PM CDT TRANSFUSION EVENT Routine 06/23/2017 9:4 0 PM CDT TRANSFUSION EVENT Routine 06/23/2017 3:5 5 PM CDT PACKED RED BLOOD CELLS 1 After X-Ray 06/23/2017 3:43 PM CDT ANTIBODY IDENTIFICATION After X-Ray 06/23/20 17 7:37 AM CDT TYPE AND SCREEN After X-Ray 06/23/2017 5:46 AM CDT POTASSIUM, WHOLE BLOOD STAT 7 5:41 AM CDT PACKED RED BLOOD CELLS 2 After X-Ray 06/23/2017 2:08 AM CDT DIFFERENTIAL AUTO After X-Ray 06/23/2017 12:31 AM CDT CBC WITH AUTO DIFFERENTIAL After X-Ray 06/23/2017 12:31 AM CDT VITAMIN D 25 HYDROXY After X-Ray 06/23/2017 12:31 AM CDT PROTIME-INR After X-Ray 06/23/2017 12:31 AM CDT HEMOGLOBIN A1C After X-Ray 06/23/2017 12:31 AM CDT BASIC METABOLIC PANEL After X-Ray 06/23/2017 12:31 AM CDT XR KNEE 1 OR 2 VW Routine 06/22/2017 11:23 PM CDT PROTIME-INR STAT 06/22/2017 5:22 PM CDT CBC WITHOUT DIFFERENTIAL STAT 06/22/2017 5:22 PM CDT BASIC METABOLIC PANEL STAT 06/22/2017 5:22 PM CDT MYCOLOGY (FUNGAL) CULTURE Routine Gen Lab 06/22/2017 2:15 PM CDT AEROBIC AND ANAEROBIC CULTURE AND GRAM STAIN Routine Gen Lab 06/22/2017 2:15 PM CDT MYCOBACTERIOLOGY AFB CULTURE Routine Gen Lab 06/22/2017 2:15 PM CDT PROTIME-INR STAT 06/22/2017 11:34 AM CDT documented in this encounter Results * (ABNORMAL) CBC with auto differential (06/25/2017 4:47 PM CDT) [facility] WBC 5.55 3.80 - 9.90 K/cumm [facility] RBC 3.87(L) 3.90 - 5.20 M/cumm [facility] Hgb 9.0(L) 11.9 - 15.5 g/dL [facility] Hct 28.3(L) 35.6 - 45.5 % [facility] MCV 73.1(L) 81.3 - 96.4 fL [facility] MCH 23.3(L) 27.1 - 33.3 pg [facility] MCHC 31.8(L) 32.3 - 35.7 g/dL [facility] RDW CV 22.0(H) 11.1 - 14.9 % [facility] RDW SD 57.1(H) 35.7 - 48.1 fL [facility] Plt 111(L) 150 - 400 K/cumm [facility] Comment:Automated count conf irmed by smear review. MPV Not Measured 9.1 - 12.3 fL [facility] NRBC 0.0 0.0 - 0.2 % [facility] NRBC abs 0.00 0.00 - 0.01 K/cumm [facility] Blood specimen (specimen) 06/25/2017 4:47 PM CDT 06/25/2017 5:06 PM CDT us Inez Matta FLASH WELDING MACHINE OPERATOR LAB BLOOD ORDERABLES Final Res ult [facility] [place] [address] * Differential, auto (06/25/2017 4:47 PM CDT) Neutrophil pct 69.9 % [facility] Imm gran pct 0.4 % [facility] Lymphocyte pct 16.4 % [facility] Monocyte pct 5.9 % [facility] Eosinophil pct 7.2 % [facility] Basophil pct 0.2 % [facility] Neutrophil abs 3.88 1.70 - 6.50 K/cumm [facility] Imm gran abs 0.02 0.00 - 0.10 K/cumm [facility] Lymphocyte abs 0.91 0.80 - 3.30 K/cumm [facility] Monocyte abs 0.33 0.20 - 0.80 K/cumm [facility] Eosinophil abs 0.40 0.00 - 0.50 K/cumm [facility] Basophil abs 0.01 0.00 - 0.10 K/cumm [facility] Blood specimen (specimen) 06/25/2017 4:47 PM CDT 06/25/2017 5:06 PM CDT us Inez Mtata NP LAB BLOOD ORDERABLES Final Res ult [facility] [place] [address] * Transfusion Event (06/25/2017 3:46 PM CDT) 06/25/2017 3:46 PM CDT Narrative [facility] - 06/25/2017 3:[address] [facility] JONNIE ALEX [facility] [phone] [id number] Pre Transfusion checks verified 06-25-2017 10:46 by Vicki Hood Consent or Emergency Release Verified Order to Transfuse in last 24hrs Pre Medication Orders Reviewed Verified Crossmatch, if performed Special requirements ordered are met [id number] RBCs RED BLOOD CELLS LEUKOREDUCED Product Expiration Date Time: 07-08-2017 23:59 Start Transfusionist: Vicki Hood Start Date/Time of Transfusion: 06-25-2017 10:46 End Transfusionist: Vicki Hood End Date/Time of Transfusion: 06-25-2017 13:23 Vitals Date/Time ?Bld Pressure ??HR ?Respirations ??Temp ??Site ?O2 Sat 06-25-2017 10:39 126/68 ?83 ?16 ?36.5 ??Oral ?94 06-25-2017 11:01 112/47 ?82 ?16 ?37 ?Oral ?94 06-25-2017 12:30 116/63 ?83 ?16 ?37.2 ??Oral ?93 06-25-2017 18:58 ? Total Volume Transfused: 300 mL Transfusion Reaction Indicated: NO Not In File Miscellaneous BLOOD BANK PRODUCT ORD ERABLES Final Result [facility] * (ABNORMAL) Basic metabolic panel (06/25/2017 12:11 AM CDT) Pathologist [facility] Sodium 133(L) 135 - 145 mmol/L [facility] Potassium, pl 4.2 3.3 - 4.9 mmol/L [facility] Chloride 103 97 - 110 mmol/L [facility] CO2 25 22 - 32 mmol/L [facility] BUN 18 8 - 25 mg/dL [facility] Glucose 112 70 - 199 mg/dL [facility] Creatinine 1.15(H) 0.60 - 1.10 mg/dL [facility] Calcium 8.0(L) 8.5 - 10.3 mg/dL [facility] Anion gap 5 2 - 15 mmol/L [facility] Blood specimen (specimen) 06/25/2017 12:11 AM CDT 06/25/2017 1:25 AM CDT Ladi Macedo MD LAB BLOOD ORDERABLES Ashley l Result [facility] Department [place] [address] * (ABNORMAL) Protime-INR (06/25/2017 12:11 AM CDT) PT 15.1(H) 9.2 - 14.0 sec [facility] INR 1.32(H) 0.81 - 1.22 [facility] Comment: Interpretive Data Inpatient therapeutic ranges* Atrial fibrillation ?2.0-3.0 INR Venous thrombo-embolism ?2.0-3.0 INR Bioprosthetic heart valve ?* Mechanical heart valve, bileaflet or tilting disk,aortic position ? 2.0-3.0 INR All other,or bileaflet or tilting disk, in mitral position ? 2.5-3.5 INR *See the pharmacy resource directory (PHRED) for an updated copy of the Tool Book at [email or web address] Current Interpretive Data was last revised 2012. Blood specimen (specimen) 06/25/2017 12:11 AM CDT 06/25/2017 1:21 AM CDT us Ladi Macedo MD LAB BLOOD ORDERABLES Ashley garcia Result [facility] [place] [address] * (ABNORMAL) CBC with auto differential (06/25/2017 12:11 AM CDT) WBC 4.81 3.80 - 9.90 K/cumm [facility] RBC 3.24(L) 3.90 - 5.20 M/cumm [facility] Hgb 7.4(L) 11.9 - 15.5 g/dL [facility] Hct 23.1(L) 35.6 - 45.5 % [facility] MCV 71.3(L) 81.3 - 96.4 fL [facility] MCH 22.8(L) 27.1 - 33.3 pg [facility] MCHC 32.0(L) 32.3 - 35.7 g/dL [facility] RDW CV 22.2(H) 11.1 - 14.9 % [facility] RDW SD 57.1(H) 35.7 - 48.1 fL [facility] Plt 94(L) 150 - 400 K/cumm [facility] MPV Not Measured 9.1 - 12.3 fL [facility] NRBC 0.0 0.0 - 0.2 % [facility] NRBC abs 0.00 0.00 - 0.01 K/cumm [facility] Blood specimen (specimen) 06/25/2017 12:11 AM CDT 06/25/2017 1:25 AM CDT Ladi Macedo MD LAB BLOOD ORDERABLES Ashley l Result Performing Organization Address City/[facility] Co de Phone Number [facility] Department [place] [address] * Differential, auto (06/25/2017 12:11 AM CDT) Neutrophil pct 66.8 % [facility] Imm gran pct 0.4 % [facility] Lymphocyte pct 19.1 % [facility] Monocyte pct 5.8 % [facility] Eosinophil pct 7.7 % [facility] Basophil pct 0.2 % [facility] Neutrophil abs 3.21 1.70 - 6.50 K/cumm [facility] Imm gran abs 0.02 0.00 - 0.10 K/cumm [facility] Lymphocyte abs 0.92 0.80 - 3.30 K/cumm [facility] Monocyte abs 0.28 0.20 - 0.80 K/cumm [facility] Eosinophil abs 0.37 0.00 - 0.50 K/cumm [facility] Basophil abs 0.01 0.00 - 0.10 K/cumm [facility] Blood specimen (specimen) 06/25/2017 12:11 AM CDT 06/25/2017 1:25 AM CDT Ladi Macedo MD LAB BLOOD ORDERABLES Ashley l Result Performing Organization Address City/[facility] Co de Phone Number [facility] Department [place] [address] * DISCHARGE LABORATORY CUMULATIVE REPORT (06/25/2017 12:00 AM CDT) Narrative 06/25/2017 12:00 AM CDT Ordered by an unspecified provider. us Historical Provider LAB BLOOD ORDERABLES Ashley garcia Result * Transfusion Event (06/24/2017 3:12 PM CDT) 06/24/2017 3:12 PM CDT Narrative [facility] - 06/24/2017 3:[address] [facility] JONNIE ALEX [facility] [phone] [id number] Pre Transfusion checks verified 06-24-2017 10:12 by Vicki Hood Consent or Emergency Release Verified Order to Transfuse in last 24hrs Pre Medication Orders Reviewed Verified Crossmatch, if performed Special requirements ordered are met [id number] RBCs RED BLOOD CELLS LEUKOREDUCED Product Expiration Date Time: 07-08-2017 23:59 Start Transfusionist: Vicki Hood Start Date/Time of Transfusion: 06-24-2017 10:12 End Transfusionist: Vicki Hood End Date/Time of Transfusion: 06-24-2017 13:31 Vitals Date/Time ?Bld Pressure ??HR ?Respirations ??Temp ??Site ?O2 Sat 06-24-2017 10:00 118/42 ?97 ?18 ?37.2 ??Oral ?97 06-24-2017 10:59 117/42 ?92 ?18 ?36.7 ??Oral ?95 06-24-2017 11:55 138/58 ?89 ?18 ?37 ?Oral ?93 06-24-2017 13:17 ? 06-24-2017 15:23 118/50 ?91 ?18 ?36.8 ??Oral ?93 06-24-2017 18:22 ? Total Volume Transfused: 400 mL Transfusion Reaction Indicated: NO us Not In File Miscellaneous BLOOD BANK PRODUCT ORD ERABLES Final Result Performing Organization Address City/[facility] Co de Phone Number [facility] * Packed Red Blood Cells 2 (06/24/2017 6:05 AM CDT) [facility] RBC, Leukoreduced PROD_CD :E0336 -1 RED BLOOD CELLS, LEUKOCYTES REDUCED UNIT_ID :[id number] ABORHP :O POS PROD_STAT :PRESUMED TRANSFUSED [facility] Blood specimen (specimen) 06/24/2017 6:05 AM CDT 06/24/2017 6:05 AM CDT Narrative [facility] - 06/24/2017 7:25 AM CDT Reason:Preexisting cardiovascular disease or complications and Hgb < 8 g/dl us Yamilet Pablo LAB BLOOD ORDERABLES Final Resul t Performing Organization Address [facility] Co de Phone Number [facility] Department [place] [address] * (ABNORMAL) Differential, auto (06/23/2017 11:06 PM CDT) [facility] Neutrophil pct 72.3 % [facility] Imm gran pct 0.6 % [facility] Lymphocyte pct 15.6 % [facility] Monocyte pct 5.1 % [facility] Eosinophil pct 6.2 % [facility] Basophil pct 0.2 % [facility] Neutrophil abs 3.37 1.70 - 6.50 K/cumm [facility] Imm gran abs 0.03 0.00 - 0.10 K/cumm [facility] Lymphocyte abs 0.73(L) 0.80 - 3.30 K/cumm [facility] Monocyte abs 0.24 0.20 - 0.80 K/cumm [facility] Eosinophil abs 0.29 0.00 - 0.50 K/cumm [facility] Basophil abs 0.01 0.00 - 0.10 K/cumm [facility] Blood specimen (specimen) 06/23/2017 11:06 PM CDT 06/23/2017 11:53 PM CDT Ladi Macedo MD LAB BLOOD ORDERABLES Ashley l Result [facility] [place] [address] * (ABNORMAL) Basic metabolic panel (06/23/2017 11:06 PM CDT) Sodium 135 135 - 145 mmol/L [facility] Potassium, pl 4.3 3.3 - 4.9 mmol/L [facility] Chloride 101 97 - 110 mmol/L [facility] CO2 26 22 - 32 mmol/L [facility] BUN 26(H) 8 - 25 mg/dL [facility] Glucose 146 70 - 199 mg/dL [facility] Creatinine 1.37(H) 0.60 - 1.10 mg/dL [facility] Calcium 7.7(L) 8.5 - 10.3 mg/dL [facility] Anion gap 8 2 - 15 mmol/L [facility] Blood specimen (specimen) 06/23/2017 11:06 PM CDT 06/23/2017 11:52 PM CDT Ladi Macedo MD LAB BLOOD ORDERABLES Ashley l Result [facility] [place] [address] * (ABNORMAL) CBC with auto differential (06/23/2017 11:06 PM CDT) WBC 4.67 3.80 - 9.90 K/cumm [facility] RBC 3.37(L) 3.90 - 5.20 M/cumm [facility] Hgb 7.5(L) 11.9 - 15.5 g/dL [facility] Hct 23.3(L) 35.6 - 45.5 % [facility] MCV 69.1(L) 81.3 - 96.4 fL [facility] MCH 22.3(L) 27.1 - 33.3 pg [facility] MCHC 32.2(L) 32.3 - 35.7 g/dL [facility] RDW CV 20.9(H) 11.1 - 14.9 % [facility] RDW SD 52.4(H) 35.7 - 48.1 fL [facility] Plt 112(L) 150 - 400 K/cumm [facility] MPV Not Measured 9.1 - 12.3 fL [facility] NRBC 0.0 0.0 - 0.2 % [facility] NRBC abs 0.00 0.00 - 0.01 K/cumm [facility] Blood specimen (specimen) 06/23/2017 11:06 PM CDT 06/23/2017 11:53 PM CDT Ladi Macedo MD LAB BLOOD ORDERABLES Ashley l Result [facility] [place] [address] * (ABNORMAL) Protime-INR (06/23/2017 11:06 PM CDT) PT 18.5(H) 9.2 - 14.0 sec [facility] INR 1.61(H) 0.81 - 1.22 [facility] Comment: Interpretive Data Inpatient therapeutic ranges* Atrial fibrillation ?2.0-3.0 INR Venous thrombo-embolism ?2.0-3.0 INR Bioprosthetic heart valve ?* Mechanical heart valve, bileaflet or tilting disk,aortic position ? 2.0-3.0 INR All other,or bileaflet or tilting disk, in mitral position ? 2.5-3.5 INR *See the pharmacy resource directory (PHRED) for an updated copy of the Tool Book at [email or web address]/pharmacy.nsf Current Interpretive Data was last revised 2012. Blood specimen (specimen) 06/23/2017 11:06 PM CDT 06/23/2017 11:48 PM CDT us Ladi Macedo MD LAB BLOOD ORDERABLES Ashley garcia Result [facility] [place] [address] * Transfusion Event (06/23/2017 9:40 PM CDT) 06/23/2017 9:40 PM CDT Narrative [facility] - 06/23/2017 9:[address] [facility] JONNIE ALEX [facility] [phone] [id number] Pre Transfusion checks verified 06-23-2017 16:40 by Fiona Strong Consent or Emergency Release Verified Order to Transfuse in last 24hrs Pre Medication Orders Reviewed Verified Crossmatch, if performed Special requirements ordered are met [id number] RBCs RED BLOOD CELLS LEUKOREDUCED Product Expiration Date Time: 07-10-2017 23:59 Start Transfusionist: Fiona Strong Start Date/Time of Transfusion: 06-23-2017 16:40 End Transfusionist: Fiona Strong End Date/Time of Transfusion: 06-23-2017 18:45 Vitals Date/Time ?Bld Pressure ??HR ?Respirations ??Temp ??Site ?O2 Sat 06-23-2017 16:36 121/46 ?95 ?18 ?37 ?Oral ?98 06-23-2017 16:56 119/45 ?102 ?? 18 ?36.8 ??Oral ?97 06-23-2017 17:52 107/51 ?103 ?? 18 ?36.8 ??Oral ?95 06-23-2017 19:26 90/44 ? 105 ?? 18 ?36.6 ??Oral ?94 06-23-2017 19:58 ? 06-23-2017 22:58 109/54 ?111 ?? 18 ?36.6 ??Oral ?94 06-23-2017 23:49 ? Total Volume Transfused: 350 mL Transfusion Reaction Indicated: NO us Not In File Miscellaneous BLOOD BANK PRODUCT ORD ERABLES Final Result [facility] * Transfusion Event (06/23/2017 3:55 PM CDT) 06/23/2017 3:55 PM CDT Narrative [facility] - 06/23/2017 3:[address] [facility] JONNIE ALEX [facility] [phone] [id number] Pre Transfusion checks verified 06-23-2017 10:55 by Wilber Willis Consent or Emergency Release Verified Order to Transfuse in last 24hrs Pre Medication Orders Reviewed Verified Crossmatch, if performed Special requirements ordered are met [id number] RBCs RED BLOOD CELLS LEUKOREDUCED Product Expiration Date Time: 07-07-2017 23:59 Start Transfusionist: Wilber Willis Start Date/Time of Transfusion: 06-23-2017 10:55 End Transfusionist: Wilber Willis End Date/Time of Transfusion: 06-23-2017 13:15 Vitals Date/Time ?Bld Pressure ??HR ?Respirations ??Temp ??Site ?O2 Sat 06-23-2017 10:50 108/41 ?85 ?18 ?36.7 ??Oral ?96 06-23-2017 11:23 98/38 ? 84 ?18 ?37.2 ??Oral ?99 06-23-2017 11:27 84/41 ? 85 ?96 06-23-2017 11:55 112/57 ?92 ?18 ? 06-23-2017 15:14 108/45 ?90 ?18 ?36.8 ??Oral ?94 06-23-2017 15:30 ? 06-23-2017 16:36 121/46 ?95 ?18 ?37 ?Oral ?98 06-23-2017 16:56 119/45 ?102 ?? 18 ?36.8 ??Oral ?97 06-23-2017 17:52 107/51 ?103 ?? 18 ?36.8 ??Oral ?95 Total Volume Transfused: 350 mL Transfusion Reaction Indicated: NO us Not In File Miscellaneous BLOOD BANK PRODUCT ORD ERABLES Final Result [facility] * Packed Red Blood Cells 1 (06/23/2017 3:43 PM CDT) [facility] RBC, Leukoreduced PROD_CD :E0336 -1 RED BLOOD CELLS, LEUKOCYTES REDUCED UNIT_ID :[id number] -[id number] ABORHP :O POS PROD_STAT :PRESUMED TRANSFUSED [facility] [facility] Blood specimen (specimen) 06/23/2017 3:43 PM CDT 06/23/2017 3:43 PM [address]ative [facility] - 06/24/2017 7:25 AM CDT Reason:Symptomatic anemia (evidence of inadequate oxygen delivery) us Inez Matta NP LAB BLOOD ORDERABLES Final Res ult Performing Organization Address [facility] Co de Phone Number [facility] [place] [address] * Antibody identification (06/23/2017 7:37 AM CDT) Pathologist [facility] Antibody ID 2 Anti Little c [facility] Antibody ID 1 Anti-E [facility] Blood specimen (specimen) 06/23/2017 7:37 AM CDT 06/23/2017 7:37 AM CDT Tomás Knight MD LAB BLOOD BANK TEST ORDERAB LES Final Result Performing Organization Address [facility] Co de Phone Number [facility] [place] [address] * (ABNORMAL) Type and screen (06/23/2017 5:46 AM CDT) Pathologist [facility] ABO Rh A Positive [facility] Yaneth, indirect Positive(A) [facility] Blood specimen (specimen) 06/23/2017 5:46 AM CDT 06/23/2017 6:28 AM CDT Tomás Knight MD LAB BLOOD BANK TEST ORDERAB LES Final Result Performing Organization Address [facility] Co de Phone Number [facility] [place] [address] * Potassium, Whole Blood (06/23/2017 5:41 AM CDT) Pathologist [facility] Potassium, bld 4.8 3.3 - 4.9 mmol/L [facility] Blood specimen (specimen) 06/23/2017 5:41 AM CDT 06/23/2017 6:28 AM CDT Tomás Knight MD LAB BLOOD ORDERABLES Final Result Performing Organization Address [facility] [place] [address] * Packed Red Blood Cells 2 (06/23/2017 2:08 AM CDT) RBC, Leukoreduced PROD_CD :E0336 -1 RED BLOOD CELLS, LEUKOCYTES REDUCED UNIT_ID :[id number] -T ABORHP :O POS PROD_STAT :PRESUMED TRANSFUSED [facility] RBC, Leukoreduced PROD_CD :E0336 -1 RED BLOOD CELLS, LEUKOCYTES REDUCED UNIT_ID :[id number] -1 ABORHP :O POS PROD_STAT :PRESUMED TRANSFUSED [facility] Blood specimen (specimen) 06/23/2017 2:08 AM CDT 06/23/2017 2:09 AM CDT Narrative [facility] - 06/23/2017 10:27 AM CDT Reason:Hemodynamically stable and Hgb < 7 g/dl Tomás Knight MD LAB BLOOD ORDERABLES Final Result Performing Organization Address [facility] [place] [address] * Hemoglobin A1c (06/23/2017 12:31 AM CDT) Pathologist [facility] Hgb A1C 5.0 4.0 - 6.0 % [facility] Estimated Average Glucose 97 mg/dL [facility] Comment: The ADA recommends reporting an estimated Average Glucose (eAG) with all Hemoglobin A1c results using the equation derived from a study of 507 normal and diabetic adults. ??Minority populations were underrepresented and children were not included. ?? (Diabetes Care 31:7005-8383, 2008). ??The eAG is not equivalent to a fasting glucose. Blood specimen (specimen) 06/23/2017 12:31 AM CDT 06/23/2017 1:38 AM CDT Ladi Macedo MD LAB BLOOD ORDERABLES Ashley l Result Performing Organization Address City/[facility]/ZIP Co de Phone Number [facility] [place] [place] [address] * (ABNORMAL) Vitamin D 25 hydroxy (06/23/2017 12:31 AM CDT) Pathologist [facility] Vitamin D 25-OH 25.5(L) 30.0 - 100.0 ng/mL [facility] Blood specimen (specimen) 06/23/2017 12:31 AM CDT 06/23/2017 1:33 AM CDT Yamilet Pablo LAB BLOOD ORDERABLES Final Resul t Performing Organization Address [facility] Co de Phone Number [facility] [place] [address] * (ABNORMAL) Basic metabolic panel (06/23/2017 12:31 AM CDT) Pathologist [facility] Sodium 138 135 - 145 mmol/L [facility] Potassium, pl 5.6(H) 3.3 - 4.9 mmol/L [facility] Chloride 104 97 - 110 mmol/L [facility] CO2 26 22 - 32 mmol/L [facility] BUN 24 8 - 25 mg/dL [facility] Glucose 126 70 - 199 mg/dL [facility] Creatinine 1.49(H) 0.60 - 1.10 mg/dL [facility] Calcium 8.0(L) 8.5 - 10.3 mg/dL [facility] Anion gap 8 2 - 15 mmol/L [facility] Blood specimen (specimen) 06/23/2017 12:31 AM CDT 06/23/2017 1:33 AM CDT Ladi Macedo MD LAB BLOOD ORDERABLES Ashley l Result Performing Organization Address City/[facility]/ZIP Co de Phone Number [facility] [place] [address] * (ABNORMAL) Differential, auto (06/23/2017 12:31 AM CDT) Pathologist [facility] Neutrophil pct 79.7 % [facility] Imm gran pct 0.5 % [facility] Lymphocyte pct 12.6 % [facility] Monocyte pct 6.5 % [facility] Eosinophil pct 0.5 % [facility] Basophil pct 0.2 % [facility] Neutrophil abs 5.01 1.70 - 6.50 K/cumm [facility] Imm gran abs 0.03 0.00 - 0.10 K/cumm [facility] Lymphocyte abs 0.79(L) 0.80 - 3.30 K/cumm [facility] Monocyte abs 0.41 0.20 - 0.80 K/cumm [facility] Eosinophil abs 0.03 0.00 - 0.50 K/cumm [facility] Basophil abs 0.01 0.00 - 0.10 K/cumm [facility] Blood specimen (specimen) 06/23/2017 12:31 AM CDT 06/23/2017 1:33 AM CDT us Ladi Macedo MD LAB BLOOD ORDERABLES Ashley garcia Result [facility] [place] [address] * (ABNORMAL) CBC with auto differential (06/23/2017 12:31 AM CDT) [facility] WBC 6.28 3.80 - 9.90 K/cumm [facility] RBC 3.33(L) 3.90 - 5.20 M/cumm [facility] Hgb 6.5(L) 11.9 - 15.5 g/dL [facility] Hct 22.6(L) 35.6 - 45.5 % [facility] MCV 67.9(L) 81.3 - 96.4 fL [facility] MCH 19.5(L) 27.1 - 33.3 pg [facility] MCHC 28.8(L) 32.3 - 35.7 g/dL [facility] RDW CV 18.7(H) 11.1 - 14.9 % [facility] RDW SD 45.8 35.7 - 48.1 fL [facility] Plt 155 150 - 400 K/cumm [facility] MPV 11.2 9.1 - 12.3 fL [facility] NRBC 0.0 0.0 - 0.2 % [facility] NRBC abs 0.00 0.00 - 0.01 K/cumm [facility] Blood specimen (specimen) 06/23/2017 12:31 AM CDT 06/23/2017 1:33 AM CDT us Ladi Macedo MD LAB BLOOD ORDERABLES Ashley garcia Result Performing Organization Address City/State/[facility] Co de Phone Number [facility] [place] [address] * Protime-INR (06/23/2017 12:31 AM CDT) PT 13.7 9.2 - 14.0 sec [facility] INR 1.20 0.81 - 1.22 [facility] Comment: Interpretive Data Inpatient therapeutic ranges* Atrial fibrillation ?2.0-3.0 INR Venous thrombo-embolism ?2.0-3.0 INR Bioprosthetic heart valve ?* Mechanical heart valve, bileaflet or tilting disk,aortic position ? 2.0-3.0 INR All other,or bileaflet or tilting disk, in mitral position ? 2.5-3.5 INR *See the pharmacy resource directory (PHRED) for an updated copy of the Tool Book at http://[facility]/bjc/pharmacy.nsf Current Interpretive Data was last revised 2012. Blood specimen (specimen) 06/23/2017 12:31 AM CDT 06/23/2017 1:20 AM CDT us Ladi Macedo MD LAB BLOOD ORDERABLES Ashley l Result [facility] [place] [address] * XR Knee 1 Or 2 VW (06/22/2017 11:23 PM CDT) Anatomical Region Laterality Modality N/A Radiographic Zhane ging 06/22/2017 11:2 3 PM CDT Narrative 06/22/2017 11:23 PM CDT DESHAWN LE M.D. FINAL REPORT ACC# ??Date Time ??Exam [id number] Jun 22, 2017 18:23:00 [id number] Knee 1 or 2 views R EXAMINATION: ?? 1. Right knee 1 or 2 views HISTORY: Infected right knee arthroplasty FINDINGS: Two view submitted with comparison 06/04/2017. There has been interval revision right total knee arthroplasty in near-anatomic alignment. There are no acute fractures. Surgical drain is in place with surrounding soft tissue swelling. IMPRESSION: ?? 1. Interval revision right total knee arthroplasty in near-anatomic alignment. Requested By: LADI MACEDO M.D. Dictated By: ?? DESHAWN LE M.D. ??on Jun 23 2017 ??6:19A This document has been electronically signed by: DESHAWN LE M.D. on Jun 23 2017 ??6:19A [id number] Procedure Note Miscellaneous, Not In File / Provider, MD Clifford - 06/23/2017 DESHAWN LE M.D. FINAL REPORT ACC# Date Time Exam [id number] Jun 22, 2017 18:23:00 [id number] Knee 1 or 2 views R EXAMINATION: 1. Right knee 1 or 2 views HISTORY: Infected right knee arthroplasty FINDINGS: Two view submitted with comparison 06/04/2017. There has been interval revision right total knee arthroplasty in near-anatomic alignment. There are no acute fractures. Surgical drain is in place with surrounding soft tissue swelling. IMPRESSION: 1. Interval revision right total knee arthroplasty in near-anatomic alignment. Requested By: LADI MACEDO M.D. Dictated By: DESHAWN LE M.D. on Jun 23 2017 6:19A This document has been electronically signed by: DESHAWN LE M.D. on Jun 23 2017 6:19A [id number] us Not In File Miscellaneous IMG XR PROCEDURES Ashley l Result * (ABNORMAL) CBC without differential (06/22/2017 5:22 PM CDT) WBC 6.22 3.80 - 9.90 K/cumm [facility] RBC 4.06 3.90 - 5.20 M/cumm [facility] Hgb 8.1(L) 11.9 - 15.5 g/dL [facility] Hct 26.9(L) 35.6 - 45.5 % [facility] MCV 66.3(L) 81.3 - 96.4 fL [facility] MCH 20.0(L) 27.1 - 33.3 pg [facility] MCHC 30.1(L) 32.3 - 35.7 g/dL [facility] RDW CV 19.1(H) 11.1 - 14.9 % [facility] RDW SD 45.7 35.7 - 48.1 fL [facility] NRBC 0.0 0.0 - 0.2 % [facility] NRBC abs 0.00 0.00 - 0.01 K/cumm [facility] Plt 149(L) 150 - 400 K/cumm [facility] MPV 9.5 9.1 - 12.3 fL [facility] Blood specimen (specimen) 06/22/2017 5:22 PM CDT 06/22/2017 5:38 PM CDT us Ladi Macedo MD LAB BLOOD ORDERABLES Ashley l Result [facility] [place] [address] * (ABNORMAL) Basic metabolic panel (06/22/2017 5:22 PM CDT) Pathologist [facility] Sodium 139 135 - 145 mmol/L [facility] Potassium, pl 4.6 3.3 - 4.9 mmol/L [facility] Chloride 104 97 - 110 mmol/L [facility] CO2 28 22 - 32 mmol/L [facility] BUN 18 8 - 25 mg/dL [facility] Glucose 126 70 - 199 mg/dL [facility] Creatinine 1.11(H) 0.60 - 1.10 mg/dL [facility] Calcium 8.4(L) 8.5 - 10.3 mg/dL [facility] Anion gap 7 2 - 15 mmol/L [facility] Blood specimen (specimen) 06/22/2017 5:22 PM CDT 06/22/2017 5:38 PM CDT Ladi Macedo MD LAB BLOOD ORDERABLES Ashley garcia Result [facility] [place] [address] * Protime-INR (06/22/2017 5:22 PM CDT) [facility] PT 13.2 9.2 - 14.0 sec [facility] INR 1.15 0.81 - 1.22 [facility] Comment: Interpretive Data Inpatient therapeutic ranges* Atrial fibrillation ?2.0-3.0 INR Venous thrombo-embolism ?2.0-3.0 INR Bioprosthetic heart valve ?* Mechanical heart valve, bileaflet or tilting disk,aortic position ? 2.0-3.0 INR All other,or bileaflet or tilting disk, in mitral position ? 2.5-3.5 INR *See the pharmacy resource directory (PHRED) for an updated copy of the Tool Book at http://[facility]/bjc/pharmacy.nsf Current Interpretive Data was last revised 2012. Blood specimen (specimen) 06/22/2017 5:22 PM CDT 06/22/2017 5:38 PM CDT Ladi Macedo MD LAB BLOOD ORDERABLES Ashley l Result Performing Organization Address [facility] Co de Phone Number [facility] [place] [address] * Mycobacteriology (AFB) culture (06/22/2017 2:15 PM CDT) Report Final Report: No growth of acid-fast bacilli [facility] Tissue (Tibia) 06/22/2017 2: 15 PM CDT 06/22/2017 6:41 PM CDT Narrative [facility] - 06/24/2017 7:16 AM CDT Specimen collected in the operating room. # 1 right Lorena Etienne MD LAB MICROBIOLOGY - G ENERAL ORDERABLES Final Result Performing Organization Address [facility] Co de Phone Number [facility] Department [place] [employer] [place] [address] * Mycology culture (06/22/2017 2:15 PM CDT) Report Final Report: No growth of fungus [facility] Tissue (Tibia) 06/22/2017 2: 15 PM CDT 06/22/2017 6:41 PM CDT Narrative [facility] - 06/23/2017 8:26 AM CDT Specimen collected in the operating room. # 1 right Lorena Etienne MD LAB MICROBIOLOGY - G ENERAL ORDERABLES Final Result Performing Organization Address [facility] [place] [address] * Aerobic and anaerobic culture and gram stain (06/22/2017 2:15 PM CDT) Direct Specimen Exam Stain: No polymorphonuclear leukocytes seen. No organisms seen. [facility] Report Final Report: No growth [facility] Tissue (Tibia) 06/22/2017 2: 15 PM CDT 06/22/2017 6:40 PM CDT Narrative [facility] - 06/23/2017 7:41 AM CDT Specimen collected in the operating room. # 1 right Specimens submitted from normally sterile body sites will have all bacterial morphotypes identified. Specimens that contain grossly mixed madi and/or are from body sites that are not normally sterile will be examined for Staphylococcus aureus, Pseudomonas aeruginosa, beta-hemolytic strep, vancomycin-resistant Enterococcus, Bacteroides fragilis, Clostridium perfringens and fungus. If any of these are isolated, the organism will be reported. Current interpretive data was last revised on 2013. Lorena Etienne MD LAB MICROBIOLOGY - G ENERAL ORDERABLES Final Result Performing Organization Address [facility] de [place] [address] * Protime-INR (06/22/2017 11:34 AM CDT) PT 12.7 9.2 - 14.0 sec [facility] INR 1.11 0.81 - 1.22 [facility] Comment: Interpretive Data Inpatient therapeutic ranges* Atrial fibrillation ?2.0-3.0 INR Venous thrombo-embolism ?2.0-3.0 INR Bioprosthetic heart valve ?* Mechanical heart valve, bileaflet or tilting disk,aortic position ? 2.0-3.0 INR All other,or bileaflet or tilting disk, in mitral position ? 2.5-3.5 INR *See the pharmacy resource directory (PHRED) for an updated copy of the Tool Book at http://[facility]/bjc/pharmacy.nsf Current Interpretive Data was last revised 2012. Blood specimen (specimen) 06/22/2017 11:34 AM CDT 06/22/2017 11:39 AM CDT us Lorena Etienne MD LAB BLOOD ORDERABLES Final Result Performing Organization Address City/State/[facility] Co de Phone Number [facility] [place] [address] documented in this encounter Visit Diagnoses Not on filedocumented in this encounter Care Teams Sand Worker Relationship Specialty Start Date End Date Willy Cummings MD [address] [place] [address] PCP - General 06/16/17 06/23/17 Brittny Salazar MD [address] [address] PCP - General 06/24/17 06/24/17 Willy Cummings MD [address] [place] [address] PCP - General 06/25/17 06/25/17 documented as of this encounter
--- OUTSIDE RECORDS SUMMARY | 2024-10-31 03:52 | XMS_ITS | Encounter Summary ---
Author Organization [facility] Address [address] [place] [address] Phone Care Team Providers Care Middle Stitcher Name Role Phone Willy Cummings MD Primary Care Provider [phone]- [phone] Encounter Details Date Type Department Care Team (Late st Contact Info) Description 12/02/2018 Telephone [facility] Movement Disorders [address] [place] [phone] Rodolfo Mantilla MD [address] [place], [place] [id number] Social History Tobacco Use Types Packs/Day Years Used Date Smoking Tobacco: Former Smokeless Tobacco: Never Alcohol Use Standard Drinks/Week Comments Yes 1 (1 standard drink = 0.6 oz pur e alcohol) Comments Unknown Sex and Gender Information Value Date Recorded Sex Assigned at Not on file Legal Sex Female 1:04 AM ASSEMBLY LINE LEADER Gender Identity Not on file Sexual Orientation Not on file Occupation Industry Job Start Date Job End Date retired Not on file Not on file Not on file documented as of this encounter Miscellaneous Notes * Telephone Encounter - Polina Alcantara RN - 12/02/2018 1:34 PM ASSEMBLY LINE LEADER 12/02 at 1:34pm Called and reviewed instructions and sent prescription as requested. She will call back in 10 - 14 days with an update or sooner if problems arise./dlk MBLY LINE LEADER * Telephone Encounter - Rodolfo Mantilla MD - 12/02/2018 1:22 PM CST We can switch her to 25/100s and give a 1/2 tab increase at each dose. MBLY LINE LEADER * Telephone Encounter - Polina Alcantara RN - 12/02/2018 10:17 AM ASSEMBLY LINE LEADER 12/02 at 10;17am She was taking the doses 8 hours apart with last dose at bedtime. Asked that she move with meals during waking hours. There was some improvement of gait but she wasn't sure if she could attribute this to CL or to recent PT. She stays well hydrated but last BP here sitting 114/65 and HR 57. Told her I would ask [facility] for further recs and call her back. Gave option of trying just 1/4 tab of the 25/250 until I heard back from him. She also mentioned that this strength was difficult to find and she had to go to two different pharmacies. She gets no more thna 4 hours of sleep per nightnow and has been up since 7a yesterday./dlk MBLY LINE LEADER * Telephone Encounter - Lori Olivares - 12/02/2018 10:08 AM CST (MU) Pt wants to discuss SE from the new medication. She's experiencing BECERRA and can't sleep. She states she's hesitant to take another dose. Call back # [phone] MBLY LINE LEADER documented in this encounter Plan of Treatment Not on file documented as of this encounter Visit Diagnoses Not on filedocumented in this encounter Care Teams Middle Stitcher Relationship Specialty Start Date End Date Willy Cummings MD [address] [place] [address] PCP - General 10/12/17 2/25/20 documented as of this encounter
--- OUTSIDE RECORDS SUMMARY | 2024-10-31 03:52 | XMS_ITS | Encounter Summary ---
Author Organization [facility] Address [address] [place] [address] Phone Care Team Providers Care Statement Distribution Clerk Name Role Phone Willy Cummings MD Primary Care Provider [phone]- [phone] Encounter Details Date Type Department Care Team (Late st Contact Info) Description 12/08/2017 Orders Only [facility] [place], [place] Nehemiah Munoz MD [address] [address] Social History Tobacco Use Types Packs/Day Years Used Date Smoking Tobacco: Never Comments Unknown Sex and Gender Information Value Date Recorded Sex Assigned at Not on file Legal Sex Female 1:04 AM AIRLINE COUNTER AGENT Gender Identity Not on file Sexual Orientation Not on file documented as of this encounter Plan of Treatment Not on file documented as of this encounter Procedures Procedure Name Priority Date/Time Associated Diagnosis Comments SURGICAL PATHOLOGY Routine 12/08/2017 3: 09 PM AIRLINE COUNTER AGENT documented in this encounter Results * Surgical pathology (12/08/2017 3:09 PM AIRLINE COUNTER AGENT) 12/08/2017 3:09 PM AIRLINE COUNTER AGENT 12/08/2017 3:09 PM AIRLINE COUNTER AGENT Narrative 12/09/2017 12:27 PM AIRLINE COUNTER AGENT [facility] Department of Pathology [address] [place] [id number] Final Report ?Patient Name: JONNIE ALEX Address: [address] [place] [address] Service: Laboratory ??[place], [place] [address] Location: Lab Taken: 12/08/2017 Gender: F Received 12/08/2017 : 1945 (Age: 71) Hospital #: [id number] Accessioned: 12/08/2017 ?? Patient Type: [facility] REF LAB Reported 12/09/2017 Physician(s): Dr Lio Munoz ?? Diagnosis: Bone, T12 vertebral body, biopsy: ? - Fracture, consistent with ?? Lia Pierson M.D. ??Report Electronically Reviewed and Signed Out By ??Lia Pierson M.D. ??12/09/2017 12:27:55 Specimen(s) Received: A: Bone, biopsy/curettings Microscopic Description: Microscopic examination of the bone biopsy, examined at multiple levels, reveals benign, nonneoplastic tissue. ??The cancellous bony trabeculae have an unremarkable histomorphology. ??Most of the marrow is moderately cellular with a normal complement of hematopoietic precursors. ??However, there are subtle small areas that show a reactive fibrovascular proliferation. ??This finding, although not specific, would be consistent with a fracture. Clinical History: T12 compression fracture. ??T12 vertebral body. ??T12 kyphoplasty. ?? Gross Description: The specimen is submitted in a single formalin filled container labeled with the patient's name and T12 vertebral body . ??Received is a single core of [place] bone that measures 0.5 cm in length with a diameter of 0.2. ??All submitted in one cassette after brief decalcification in Immunocal. ??Lia Pierson MD/Cassie Prado Complete report with images are only be viewable in the PDF report The performance characteristics of some immunohistochemical stains, fluorescence in-situ hybridization tests and immunophenotyping by flow cytometry cited in this report (if any) were determined by the Surgical Pathology Department at [facility] as part of an ongoing water quality manager program and in compliance with federally mandated regulations drawn from the Clinical Laboratory Improvement Act of 1988 (CLIA '88). ??Some of these tests rely on the use of analyte specific reagents and are subject to specific labeling requirements by the US Food and Drug Administration. ??Such diagnostic tests may only be performed in a facility that is certified by the Department of Health and Human Services as a high complexity laboratory under CLIA '88. ??The FDA has determined that such clearance or approval is not necessary. ??This test is used for clinical purposes. ??It should not be regarded as investigational or for research. ??Nevertheless, federal rules concerning the medical use of analyte specific reagents require that the following disclaimer be attached to the report: This test was developed and its performance characteristics determined by the Surgical Pathology Department [facility]. ??It has not been cleared or approved by the U. S. Food and Drug Administration. Nehemiah Munoz MD LAB PATHOLOGY ORDERABLES F inal Result documented in this encounter Visit Diagnoses Not on filedocumented in this encounter Care Teams Statement Distribution Clerk Relationship Specialty Start Date End Date Willy Cummings MD [address] [place] [address] PCP - General 08/06/17 12/20/19 documented as of this encounter
--- OUTSIDE RECORDS SUMMARY | 2024-10-31 03:52 | XMS_ITS | Encounter Summary ---
Author Organization [facility] Address [address] [place] [address] Phone Care Team Providers Care Apparel Sales Leader Name Role Phone Willy Cummings MD Primary Care Provider +1- [phone] Encounter Details Date Type Department Care Team (Late st Contact Info) Description 10/08/2018 Orders Only [facility] Neurosurgery [address] [facility] 6th [place] [address] [place] [address] Renea Collado CMA Social History Tobacco Use Types Packs/Day Years Used Date Smoking Tobacco: Never Smokeless Tobacco: Never Alcohol Use Standard Drinks/Week Comments Yes 1 (1 standard drink = 0.6 oz pur e alcohol) Comments Unknown Sex and Gender Information Value Date Recorded Sex Assigned at Not on file Legal Sex Female 1:04 AM BUSINESS PERFORMANCE ADVISOR Gender Identity Not on file Sexual Orientation Not on file documented as of this encounter Plan of Treatment Not on file documented as of this encounter Visit Diagnoses Not on filedocumented in this encounter Historical Medications * This list may reflect changes made after this encounter. levothyroxine (SYNTHROID, LEVOTHROID) 100 mcg tablet Take 100 mcg by mouth daily. 5 08/08/2018 warfarin (COUMADIN) 2 mg tablet take 2.5 tabs(total dose=5mg)orally day before surgery at noon,after surgery take your coumadin as directed in the hospital daily@5 pm 06/19/2017 9 traMADol (ULTRAM) 50 mg tablet TAKE 1 TO 2 TABLETS EVERY 4 TO 6 HOURS NEEDED FOR PAIN. 05/21/2017 9 oxyCODONE-acetam inophen (PERCOCET) 5-325 mg per tabletIndication s:Pain TAKE 1 TABLET EVERY 4 HOURS NEEDED FOR PAIN. 05/11/2017 9 mupirocin (BACTROBAN) 2 % ointment Appy to each nostril with a cotton swab twice daily 5 days prior to surgery 06/12/2017 8 HYDROcodone-acet aminophen (NORCO) 7.5-325 mg per tabletIndication s:Pain TAKE 1 TABLET BY MOUTH 3 TIMES A DAY NEEDED FOR 30 DAYS 0 08/25/2018 9 hydroCHLOROthiaz laila (HYDRODIURIL) 12.5 mg tablet Take 12.5 mg by mouth daily. 3 08/08/2018 9 gabapentin (NEURONTIN) 300 mg capsule TAKE ONE CAPSULE 3 TIMES A DAY 10/13/2013 8 FLUZONE HIGH-DOSE , PF, 180 mcg/0.5 mL syringe TO BE ADMINISTERED BY PHARMACIST FOR IMMUNIZATION 0 08/17/2018 9 cyclobenzaprine (FLEXERIL) 5 mg tablet Take by mouth 3 (three) times a day as needed. 1 09/12/2018 9 citalopram (CeleXA) 40 mg tablet TAKE 1 TABLET BY MOUTH EVERY DAY. DOSE INCREASE 1 08/18/2018 9 added in this encounter Care Teams Apparel Sales Leader Relationship Specialty Start Date End Date Willy Cummings MD [address] [place] [address] PCP - General 08/06/17 12/20/19 documented as of this encounter
--- OUTSIDE RECORDS SUMMARY | 2024-10-31 03:52 | XMS_ITS | Encounter Summary ---
Author Organization [facility] Address [address] [place] [address] Phone Care Team Providers Care Research Psychologist Name Role Phone Brittny Salazar MD Primary Care Provider + -[phone] Willy Cummings MD Primary Care Provider +1- [phone] Brittny Salazar MD Primary Care Provider + -[phone] Willy Cummings MD Primary Care Provider +- [phone] Brittny Salazar MD Primary Care Provider + -[phone] Willy Cummings MD Primary Care Provider +- [phone] Brittny Salazar MD Primary Care Provider + -[phone] Willy Cummings MD Primary Care Provider +- [phone] Willy Cummings MD Primary Care Provider +- [phone] Cecilia Lim MD Primary Care Provider Rodolfo Mantilla MD Unavailable Sabrina Ruffin MD Primary Care Provider Encounter Details Date Type Department Care Team (Latest Contact Info) Description 06/08/2017 Orders Only [facility] CONVERSION Scanning, Provider Social History Tobacco Use Types Packs/Day Years Used Date Smoking Tobacco: Never Comments Unknown Sex and Gender Information Value Date Recorded Sex Assigned at Not on file Legal Sex Female 1:04 AM HOSPICE CARE CONSULTANT Gender Identity Not on file Sexual Orientation Not on file documented as of this encounter Plan of Treatment Not on file documented as of this encounter Procedures Procedure Name Priority Date/Time Associated Diagnosis Comments VASCULAR LABORATORY REPORT 06/08/2017 11:55 AM CDT documented in this encounter Results * VASCULAR LABORATORY REPORT (06/08/2017 11:55 AM CDT) Anatomical Region Laterality Modality Ultrasound us Provider Scanning CV VASCULAR PROCEDURES Final R esult documented in this encounter Visit Diagnoses Not on filedocumented in this encounter Care Teams Research Psychologist Relationship Specialty Start Date End Date Brittny Salazar MD [address] [address] PCP - General 06/05/17 06/11/17 Willy Cummings MD [address] [place] [address] PCP - General 06/12/17 06/14/17 Brittny Salazar MD [address] [address] PCP - General 06/15/17 06/15/17 Willy Cummings MD [address] [place] [address] PCP - General 06/16/17 06/23/17 Brittny Salazar MD [address] [address] PCP - General 06/24/17 06/24/17 Willy Cummings MD [address] [place] [address] PCP - General 06/25/17 06/25/17 Brittny Salazar MD [address] [address] PCP - General 06/26/17 07/15/17 Willy Cummings MD [address] [place] [address] PCP - General 07/16/17 08/05/17 Willy Cummings MD [address] [place] [address] PCP - General 08/06/17 12/20/19 Cecilia Lim MD [address] [place] [address] PCP - General Family Medicine 12/21/19 12/30/20 Sabrina Ruffin MD [address] [place] [address] PCP - General Family Medicine 12/31/20 Rodolfo Mantilla MD [address] [place] [address] Consulting Physician Neurology 12/21/19 documented as of this encounter
--- OUTSIDE RECORDS SUMMARY | 2024-10-31 03:52 | XMS_ITS | Encounter Summary ---
Author Organization [facility] Healthcare Address [address] [place] [address] Care Team Providers Care Supervisor [place] Name Role Phone Willy Cummings MD Primary Care Provider +1- [phone] Encounter Details Date Type Department Care Team (Late st Contact Info) Description 06/04/2017 12:26 PM CDT - 06/04/2017 11:59 PM T Hospital Encounter [facility] INTERIM [phone] Lorena Etienne MD [address] [place] [address] Discharge Disposition: Discharge to home or self care Social History Tobacco Use Types Packs/Day Years Used Date Smoking Tobacco: Never Comments Unknown Sex and Gender Information Value Date Recorded Sex Assigned at Not on file Legal Sex Female 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 Gender Identity Not on file Sexual Orientation [...] Procedure Name Priority Date/Time Associated Diagnosis Comments ERYTHROCYTE SEDIMENTATION RATE Routine Gen Lab 06/04/2017 12:48 PM CDT CRP (ACUTE PHASE) Routine Gen Lab 06/04/2017 12: 48 PM CDT DISCHARGE LABORATORY CUMULATIVE REPORT 06/04/2017 12:00 AM CDT documented in this encounter Results * (ABNORMAL) Erythrocyte sedimentation rate (06/04/2017 12:48 PM CDT) Erythrocyte sedimentation rate 49(H) 0 - 35 mm/H [facility] Blood specimen (specimen) 06/04/2017 12:48 PM CDT 06/04/2017 1:07 PM CDT Lorena Etienne MD LAB BLOOD ORDERABLES Final Result Performing Organization Address City/[facility]/ZIP Co de Phone Number [facility] [place] [address] * (ABNORMAL) CRP (acute phase) (06/04/2017 12:48 PM CDT) CRP 29.3(H) 0.0 - 9.9 mg/L [facility] Blood specimen (specimen) 06/04/2017 12:48 PM CDT 06/04/2017 1:07 PM CDT Lorena Etienne MD LAB BLOOD ORDERABLES Final Result [facility] [place] [address] * DISCHARGE LABORATORY CUMULATIVE REPORT (06/04/2017 12:00 AM CDT) Narrative 06/04/2017 12:00 AM CDT Ordered by an unspecified provider. Clifford Ngueyn MD LAB BLOOD ORDERABLES Ashley l Result documented in this encounter Visit Diagnoses Not on filedocumented in this encounter Care Teams Supervisor [place] Relationship Specialty Start Date End Date Willy Cummings MD [address] [place] [address] PCP - General 06/04/17 06/04/17 documented as of this encounter
--- OUTSIDE RECORDS SUMMARY | 2024-10-31 03:52 | XMS_ITS | Encounter Summary ---
Author Organization [facility] Healthcare Address [address] [place] [address] Care Team Providers Care Pipe Stem Repairer Name Role Phone Willy Cummings MD Primary Care Provider +1- [phone] Encounter Details Date Type Department Care Team (Late st Contact Info) Description 01/07/2018 10:35 AM CDT - 01/07/2018 11:59 PM T Hospital Encounter [facility] OP INTERIM [phone] Yousif Etienne MD [address] [place] [address] Discharge Disposition: Discharge to home or self care Social History Tobacco Use Types Packs/Day Years Used Date Smoking Tobacco: Never Comments Unknown Sex and Gender Information Value Date Recorded Sex Assigned at Not on file Legal Sex Female 1:04 AM 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 RONAN ZEPEDA M.D. FINAL REPORT The radiology attending physician has personally reviewed this study, and has reviewed and/or edited this written report and agrees with it. ACC# ??Date Time ??Exam [id number] Jan 07, 2018 10:57:00 [id number] Knee 1 or 2 views R EXAMINATION: ??Right knee 1 or 2 views HISTORY: Right knee osteoarthritis. FINDINGS: 2 views of the right knee are compared to prior study dated 08/06/2017. There is an unchanged, constrained, right total knee arthroplasty in near-anatomic alignment. There is no fracture. There is a small effusion. 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 Electronically signed by: Kole Batres M.D. Requested By: YOUSIF ETIENNE M.D. Dictated By: ?? RONAN ZEPEDA M.D. ??on Jan 07 2018 11:23A This document has been electronically signed by: KOLE BATRES M.D. on Jan 07 2018 11:30A [id number] MAXWELL M.D. FINAL REPORT The radiology attending physician has personally reviewed this study, and has reviewed and/or edited this written report and agrees with it. Attending: ??CHANDAN, ??YOSUIF Requesting: ??CHANDAN, ??YOUSIF Requesting Fax: ?? Attending Fax: ?? Attending ID: ??[id number] Requesting ID: ??[id number] Report To 1 ID: ??[id number] ? Report To 1 Name: ??, ?? Report To 1 FAX: ?? NextGen Order #: ?? Procedure Note Miscellaneous, Not In File - 01/07/2018 KOLE BATRES M.D. RONAN ZEPEDA M.D. FINAL REPORT The radiology attending physician has personally reviewed this study, and has reviewed and/or edited this written report and agrees with it. ACC# Date Time Exam [id number] Jan 07, 2018 10:57:00 [id number] Knee 1 or 2 views R EXAMINATION: Right knee 1 or 2 views HISTORY: Right knee osteoarthritis. FINDINGS: 2 views of the right knee are compared to prior study dated 08/06/2017. There is an unchanged, constrained, right total knee arthroplasty in near-anatomic alignment. There is no fracture. There is a small effusion. IMPRESSION: Unchanged, constrained right total knee arthroplasty in near-anatomic alignment. Electronically signed by: Kole Batres M.D. Requested By: YOUSIF ETIENNE M.D. Dictated By: RONAN ZEPEDA M.D. on Jan 07 2018 11:23A This document has been electronically signed by: KOLE BATRES M.D. on Jan 07 2018 11:30A [id number] MAXWELL M.D. FINAL REPORT The radiology attending physician has personally reviewed this study, and has reviewed and/or edited this written report and agrees with it. Attending: YOUSIF ETIENNE Requesting: YOUSIF ETIENNE Requesting Fax: Attending Fax: Attending ID: [id number] Requesting ID: [id number] Report To 1 ID: [id number] Report To 1 Name: , Report To 1 FAX: NextGen Order #: Yousif Etienne MD IMG XR PROCEDURES Fi nal Result * CRP (acute phase) (01/07/2018 12:13 PM CDT) Pathologist [facility] CRP 5.9 0.0 - 9.9 mg/L [facility] Blood specimen (specimen) 01/07/2018 12:13 PM CDT 01/07/2018 12:37 PM CDT Narrative [facility] - 01/07/2018 1:07 PM CDT Yousif Etienne MD LAB BLOOD ORDERABLES Final Result Performing Organization Address City/[facility]/ZIP Co de Phone Number [facility] Department [place] [address] * Erythrocyte sedimentation rate (01/07/2018 12:13 PM CDT) [facility] Erythrocyte sedimentation rate 10 0 - 35 mm/H [facility] Blood specimen (specimen) 01/07/2018 12:13 PM CDT 01/07/2018 12:38 PM CDT Narrative [facility] - 01/07/2018 1:02 PM CDT Yousif Etienne MD LAB BLOOD ORDERABLES Final Result [facility] Department [place] [address] * DISCHARGE LABORATORY CUMULATIVE REPORT (01/07/2018 12:00 AM CDT) Narrative 01/07/2018 12:00 AM CDT Ordered by an unspecified provider. us Historical Provider LAB BLOOD ORDERABLES Ashley l Result documented in this encounter Visit Diagnoses Not on filedocumented in this encounter Care Teams Pipe Stem Repairer Relationship Specialty Start Date End Date Willy Cummings MD [address] [place] [address] PCP - General 08/06/17 12/20/19 documented as of this encounter
--- OUTSIDE RECORDS SUMMARY | 2024-10-31 03:52 | XMS_ITS | Encounter Summary ---
Author Organization [facility] Healthcare Address [address] [place] [address] Care Team Providers Care Police Sergeant Precinct Name Role Phone Willy Cummings MD Primary Care Provider +1- [phone] Encounter Details Date Type Department Care Team (Late st Contact Info) Description 06/19/2017 9:50 AM CDT - 06/19/2017 11:59 PM T Hospital Encounter [facility] OP INTERIM [phone] Lorena Etienne MD [address] [place] [address] Discharge Disposition: Discharge to home or self care Social History Tobacco Use Types Packs/Day Years Used Date Smoking Tobacco: Never Comments Unknown Sex and Gender Information Value Date Recorded Sex Assigned at Not on file Legal Sex Female 1:04 AM PET CARE ASSOCIATE Gender Identity Not on file Sexual Orientation [...] Procedure Name Priority Date/Time Associated Diagnosis Comments PACKED RED BLOOD CELLS 3 STAT 06/21/2017 3:05 PM CDT ANTIBODY IDENTIFICATION After X-Ray 06/19/2017 12:38 PM CDT PACKED RED BLOOD CELLS 3 After X-Ray 06/19/2017 10:17 AM CDT B LC ANTIGEN TYPE After X-Ray 06/19/2017 10: 17 AM CDT TYPE AND SCREEN After X-Ray 06/19/2017 10:17 AM CDT PACKED RED BLOOD CELLS 3 After X-Ray 06/19/2017 10:01 AM CDT DISCHARGE LABORATORY CUMULATIVE REPORT 06/19/2017 12:00 AM CDT documented in this encounter Results * Packed Red Blood Cells 3 (06/21/2017 3:05 PM CDT) [facility] RBC, Leukoreduced PROD_CD :E0336 -1 RED BLOOD CELLS, LEUKOCYTES REDUCED UNIT_ID :[id number] -L ABORHP :O POS PROD_STAT :RETURNED [facility] RBC, Leukoreduced PROD_CD :E0336 -1 RED BLOOD CELLS, LEUKOCYTES REDUCED UNIT_ID :[id number] -8 ABORHP :O POS PROD_STAT :RETURNED [facility] RBC, Leukoreduced PROD_CD :E0336 -1 RED BLOOD CELLS, LEUKOCYTES REDUCED UNIT_ID :[id number] -T ABORHP :O POS PROD_STAT :RETURNED [facility] Blood specimen (specimen) 06/21/2017 3:05 PM CDT 06/21/2017 3:05 PM CDT Neyda Hewitt SETTLEMENT PROCESSOR LAB BLOOD ORDERABLES Ashley l Result Performing Organization Address [facility] Co de Phone Number [facility] [place] [address] * Antibody identification (06/19/2017 12:38 PM CDT) Pathologist [facility] Antibody ID 2 Anti Little c [facility] Antibody ID 1 Anti-E [facility] Blood specimen (specimen) 06/19/2017 12:38 PM CDT 06/19/2017 12:38 PM CDT Neyda Hewitt NP LAB BLOOD BANK TEST ORDER JONATHON Final Result Performing Organization Address [facility] de Phone Number [facility] Department [place] [address] * Packed Red Blood Cells 3 (06/19/2017 10:17 AM CDT) RBC, Leukoreduced PROD_CD :E0336 -1 RED BLOOD CELLS, LEUKOCYTES REDUCED UNIT_ID :[id number] -J ABORHP :O POS PROD_STAT :RETURNED [facility] RBC, Leukoreduced PROD_CD :E0336 -1 RED BLOOD CELLS, LEUKOCYTES REDUCED UNIT_ID :[id number] -C ABORHP :O POS PROD_STAT :RETURNED [facility] RBC, Leukoreduced PROD_CD :E0336 -1 RED BLOOD CELLS, LEUKOCYTES REDUCED UNIT_ID :[id number] -R ABORHP :O POS PROD_STAT :RETURNED [facility] Blood specimen (specimen) 06/19/2017 10:17 AM CDT 06/19/2017 11:22 AM CDT Neyda Hewitt SETTLEMENT PROCESSOR LAB BLOOD ORDERABLES Edit ed Result - Final [facility] [place] [address] * B Lc Antigen Type (06/19/2017 10:17 AM CDT) [facility] RBC phenotyping, little c ag Negative [facility] Blood specimen (specimen) 06/19/2017 10:17 AM CDT 06/19/2017 11:22 AM CDT Neyda Hewitt SETTLEMENT PROCESSOR LAB BLOOD ORDERABLES Ashley l Result Performing Organization Address [facility] [place] [address] * (ABNORMAL) Type and screen (06/19/2017 10:17 AM CDT) [facility] Yaneth, indirect Positive(A) [facility] ABO Rh A Positive [facility] Blood specimen (specimen) 06/19/2017 10:17 AM CDT 06/19/2017 11:22 AM CDT Neyda Hewitt NP LAB BLOOD BANK TEST ORDER JONATHON Edited Result - Final Performing Organization Address [facility] Co de Phone Number [facility] [place] [address] * Packed Red Blood Cells 3 (06/19/2017 10:01 AM CDT) [facility] RBC, Leukoreduced PROD_CD :E0336 -1 RED BLOOD CELLS, LEUKOCYTES REDUCED UNIT_ID :[id number] -X ABORHP :A NEG PROD_STAT :RETURNED [facility] RBC, Leukoreduced, Irradiated PROD_CD :E0332 -1 RED BLOOD CELLS, IRRADIATED, LEUKOCYTES REDUCED, DIVISION 1 UNIT_ID :[id number] -U ABORHP :A NEG PROD_STAT :RETURNED [facility] RBC, Leukoreduced PROD_CD :E0336 -1 RED BLOOD CELLS, LEUKOCYTES REDUCED UNIT_ID :[id number] -7 ABORHP :A NEG PROD_STAT :[facility]ED [facility] Blood specimen (specimen) 06/19/2017 10:01 AM CDT 06/19/2017 10:01 AM CDT Narrative [facility] - 06/19/2017 1:43 PM CDT Reason:Prepare product for intraoperative transfusion us Neyda Hewitt NP LAB BLOOD ORDERABLES Edit ed Result - Final [facility] Department [place] [address] * DISCHARGE LABORATORY CUMULATIVE REPORT (06/19/2017 12:00 AM CDT) Narrative 06/19/2017 12:00 AM CDT Ordered by an unspecified provider. Historical Provider LAB BLOOD ORDERABLES Ashley l Result documented in this encounter Visit Diagnoses Not on filedocumented in this encounter Care Teams Police Sergeant Precinct Relationship Specialty Start Date End Date Willy Cummings MD [address] [place] [address] PCP - General 06/16/17 06/23/17 documented as of this encounter
--- OUTSIDE RECORDS SUMMARY | 2024-10-31 03:52 | XMS_ITS | Encounter Summary ---
Author Organization [facility] Healthcare Address [address] [place] [address] Care Team Providers Care Clinical Nursing Manager Name Role Phone Willy Cummings MD Primary Care Provider +1- [phone] Encounter Details Date Type Department Care Team (Late st Contact Info) Description 05/21/2018 Orders Only Radiology [address] [place] [address] Venita Armenta MD [address] [facility] [address] [place] [address] Social History Tobacco Use Types Packs/Day Years Used Date Smoking Tobacco: Never Smokeless Tobacco: Never Alcohol Use Standard Drinks/Week Comments Yes 1 (1 standard drink = 0.6 oz pur e alcohol) Comments Unknown Sex and Gender Information Value Date Recorded Sex Assigned at Not on file Legal Sex Female 1:04 AM DATA SECURITY CONSULTANT Gender Identity Not on file Sexual Orientation Not on file documented as of this encounter Plan of Treatment Not on file documented as of this encounter Visit Diagnoses Not on filedocumented in this encounter Care Teams Clinical Nursing Manager Relationship Specialty Start Date End Date Willy Cummings MD [address] [place] [address] PCP - General 08/06/17 12/20/19 documented as of this encounter
--- OUTSIDE RECORDS SUMMARY | 2024-10-31 03:52 | XMS_ITS | Encounter Summary ---
Author Organization [facility] Address [address] [place] [address] Care Team Providers Care Commuter Pilot Name Role Phone Willy Cummings MD Primary Care Provider +1- [phone] Encounter Details Date Type Department Care Team (Late st Contact Info) Description 05/20/2018 Orders Only 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 metoprolol XL (TOPROL-XL) 50 mg 24 hr tablet Take 50 mg by mouth daily. HYDROcodone-aceta minophen 2.5-325 mg tablet Take 1 tablet by mouth 3 (three) times a day as needed. 11/24/2018 losartan (COZAAR) 50 mg tablet Take 50 mg by mouth 2 (two) times a day 07/23/2020 levothyroxine sodium (TIROSINT) 100 mcg capsule Take 100 mcg by mouth daily. 11/24/2018 hydroCHLOROthiazi de (MICROZIDE) 12.5 mg capsule Take 12.5 mg by mouth daily. 11/24/2018 gabapentin (NEURONTIN) 300 mg capsule Take 600 mg by mouth 2 (two) times a day 06/02/2022 citalopram (CeleXA) 20 mg tablet Take 20 mg by mouth daily. 10/12/2018 atorvastatin (LIPITOR) 10 mg tablet Take 10 mg by mouth daily. 08/29/2021 added in this encounter Care Teams Commuter Pilot Relationship Specialty Start Date End Date Willy Cummings MD [address] [place] [address] PCP - General 08/06/17 12/20/19 documented as of this encounter
--- OUTSIDE RECORDS SUMMARY | 2024-10-31 03:52 | XMS_ITS | Encounter Summary ---
Author Organization [facility] [employer] [facility] Address [address] [facility] [address] [place] [address] Phone Care Team Providers Care Fast Food Cashier Name Role Phone Willy Cummings MD Primary Care Provider +1- [phone] Encounter Details Date Type Department Care Team (Late st Contact Info) Description 06/10/2019 Orders Only [facility] Movement Disorders [address] [place] [id number] Neyda Yang CMA Social History Tobacco Use Types Packs/Day Years Used Date Smoking Tobacco: Former Smokeless Tobacco: Never Alcohol Use Standard Drinks/Week Comments Yes 1 (1 standard drink = 0.6 oz pur e alcohol) Comments Unknown Sex and Gender Information Value Date Recorded Sex Assigned at Not on file Legal Sex Female 1:04 AM TOOL AND DIE REPAIRER Gender Identity Not on file Sexual Orientation Not on file Occupation Industry Job Start Date Job End Date retired Not on file Not on file Not on file documented as of this encounter Plan of Treatment Not on file documented as of this encounter Visit Diagnoses Not on filedocumented in this encounter Care Teams Fast Food Cashier Relationship Specialty Start Date End Date Willy Cummings MD [address] [place] [address] PCP - General 08/06/17 12/20/19 documented as of this encounter
--- OUTSIDE RECORDS SUMMARY | 2024-10-31 03:52 | XMS_ITS | Encounter Summary ---
Author Organization [facility] Healthcare Address [address] [place] [address] Care Team Providers Care Lead Project Engineer Name Role Phone Willy Cummings MD Primary Care Provider +1- [phone] Encounter Details Date Type Department Care Team (Latest Contact Info) Description 05/15/2017 10:41 AM CDT - 05/15/2017 11:59 PM CDT Hospital Encounter [facility] [phone] Santo Álvarez MD [address] [facility] [address] [place] [address] Discharge Disposition: Discharge to home or self care Social History Tobacco Use Types Packs/Day Years Used Date Smoking Tobacco: Never Comments Unknown Sex and Gender Information Value Date Recorded Sex Assigned at Not on file Legal Sex Female 1:04 AM PVC MONITOR Gender Identity Not on file Sexual Orientation Not on file documented as of this encounter Medications at Time of Discharge gabapentin (NEURONTIN) 300 mg capsule TAKE ONE CAPSULE 3 TIMES A DAY 10/13/2013 10/12/2018 oxyCODONE-acetami nophen (PERCOCET) 5-325 mg per tabletIndications :Pain TAKE 1 TABLET EVERY 4 HOURS NEEDED FOR PAIN. 05/11/2017 11/24/2018 documented as of this encounter Discharge Disposition Disposition Code Departure Means Destination Discharge to home or self care documented in this encounter Plan of Treatment Not on file documented as of this encounter Procedures Procedure Name Priority Date/Time Associated Diagnosis Comments CS GLUCOSE Routine Gen Lab 05/15/2017 10:41 AM CDT DIFFERENTIAL AUTO Routine Gen Lab 05/15/2017 10: 41 AM CDT COMPREHENSIVE METABOLIC PANEL WITHOUT GLUCOSE (OUTREACH) Routine Gen Lab 05/15/2017 10:41 AM CDT CBC WITH AUTO DIFFERENTIAL Routine Gen Lab 05/15/2017 10:41 AM CDT DISCHARGE LABORATORY CUMULATIVE REPORT 05/15/2017 12:00 AM CDT documented in this encounter Results * Differential, auto (05/15/2017 10:41 AM CDT) Neutrophil pct 69.3 % [facility] Comment:Confirmed by smear r randal Imm gran pct 0.4 % [facility] Lymphocyte pct 19.7 % [facility] Monocyte pct 7.8 % [facility] Eosinophil pct 2.3 % [facility] Basophil pct 0.5 % [facility] Neutrophil abs 3.90 1.70 - 6.50 K/cumm [facility] Imm gran abs 0.02 0.00 - 0.10 K/cumm [facility] Lymphocyte abs 1.11 0.80 - 3.30 K/cumm [facility] Monocyte abs 0.44 0.20 - 0.80 K/cumm [facility] Eosinophil abs 0.13 0.00 - 0.50 K/cumm [facility] Basophil abs 0.03 0.00 - 0.10 K/cumm [facility] Blood specimen (specimen) 05/15/2017 10:41 AM CDT 05/15/2017 11:50 AM CDT us Santo Álvarez MD LAB BLOOD ORDERABLES Final Result [facility] Department [place] [address] * (ABNORMAL) CBC with auto differential (05/15/2017 10:41 AM CDT) WBC 5.63 3.80 - 9.90 K/cumm [facility] RBC 3.92 3.90 - 5.20 M/cumm [facility] Hgb 7.9(L) 11.9 - 15.5 g/dL [facility] Hct 25.8(L) 35.6 - 45.5 % [facility] MCV 65.8(L) 81.3 - 96.4 fL [facility] MCH 20.2(L) 27.1 - 33.3 pg [facility] MCHC 30.6(L) 32.3 - 35.7 g/dL [facility] RDW CV 20.1(H) 11.1 - 14.9 % [facility] RDW SD 46.3 35.7 - 48.1 fL [facility] Plt 187 150 - 400 K/cumm [facility] MPV 11.0 9.1 - 12.3 fL [facility] NRBC 0.0 0.0 - 0.2 % [facility] NRBC abs 0.00 0.00 - 0.01 K/cumm [facility] Blood specimen (specimen) 05/15/2017 10:41 AM CDT 05/15/2017 11:50 AM CDT Santo Álvarez MD LAB BLOOD ORDERABLES Final Result [facility] Department [place] [address] * (ABNORMAL) Comprehensive metabolic panel without glucose (outreach) (05/15/2017 10:41 AM CDT) Sodium 136 135 - 145 mmol/L [facility] Potassium, pl 4.7 3.3 - 4.9 mmol/L [facility] Chloride 98 97 - 110 mmol/L [facility] CO2 29 22 - 32 mmol/L [facility] Anion gap 9 2 - 15 mmol/L [facility] BUN 15 8 - 25 mg/dL [facility] Creatinine 1.08 0.60 - 1.10 mg/dL [facility] Calcium 8.6 8.5 - 10.3 mg/dL [facility] Protein, pl 6.7 6.5 - 8.5 g/dL [facility] Albumin 3.4(L) 3.5 - 5.0 g/dL [facility] Bilirubin, total 0.6 0.1 - 1.2 mg/dL [facility] Alk phos 107 40 - 130 Units/L [facility] AST 17 10 - 45 Units/L [facility] ALT 10 7 - 45 Units/L [facility] Blood specimen (specimen) 05/15/2017 10:41 AM CDT 05/15/2017 11:50 AM CDT Santo Álvarez MD LAB BLOOD ORDERABLES Final Result [facility] Department [place] [address] * CS GLUCOSE (05/15/2017 10:41 AM CDT) Glucose See Comment 70 - 199 mg/dL [facility] Comment:No figueroa top tube rec eived. Blood specimen (specimen) 05/15/2017 10:41 AM CDT 05/15/2017 11:50 AM CDT Santo Álvarez MD LAB BLOOD ORDERABLES Edite d Result - Final Performing Organization Address City/[facility]/ZIP Co de Phone Number [facility] Department [place] [address] * DISCHARGE LABORATORY CUMULATIVE REPORT (05/15/2017 12:00 AM CDT) Narrative 05/15/2017 12:00 AM CDT Ordered by an unspecified provider. Historical Provider LAB BLOOD ORDERABLES Ashley l Result documented in this encounter Visit Diagnoses Not on filedocumented in this encounter Care Teams Lead Project Engineer Relationship Specialty Start Date End Date Willy Cummings MD [address] [place] [address] PCP - General 05/15/17 05/17/17 documented as of this encounter
--- OUTSIDE RECORDS SUMMARY | 2024-10-31 03:52 | XMS_ITS | Encounter Summary ---
Author Organization [facility] Address [address] [facility] [address] [place] [address] Phone Care Team Providers Care Electronic Gluer Name Role Phone Willy Cummings MD Primary Care Provider +1- [phone] Encounter Details Date Type Department Care Team (Late st Contact Info) Description 06/10/[address] 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 Gender Identity Not on file Sexual Orientation Not on file Occupation Industry Job Start Date Job End Date retired Not on file Not on file Not on file documented as of this encounter Progress Notes * Kelli Mckeon MA - 06/10/2019 2:17 PM CDT Started today documented in this encounter Plan of Treatment Not on file documented as of this encounter Visit Diagnoses Not on filedocumented in this encounter Discontinued Medications Medication Sig Discontinue Reason Start Date End Da te DOMPERIDONE, BULK, MISC 10 mg 3 (three) times a day Take 1 tab 30 minutes prior to first dose of Sinemet daily and 1 tab with the two remaining doses of Sinemet (3 tabs per day total) Dose adjustment 06/10/2019 documented as of this encounter Historical Medications * This list may reflect changes made after this encounter. DOMPERIDONE, BULK, MISC 10 mg 3 (three) times a day Take 1 tab 30 minutes prior to first dose Sinemet daily and 1 tab with the two remaining doses of Sinemet. (3 tabs daily) Please offer her the 500 tab bottle if she wants to pay the money. 06/10/2019 0 added in this encounter Care Teams Electronic Gluer Relationship Specialty Start Date End Date Willy Cummings MD [address] [place] [address] PCP - General 08/06/17 12/20/19 documented as of this encounter
--- OUTSIDE RECORDS SUMMARY | 2024-10-31 03:52 | XMS_ITS | Encounter Summary ---
Author Organization [facility] Address [address] [place] [address] Phone Care Team Providers Care Laboratory Clerk Name Role Phone Willy Cummings MD Primary Care Provider +1- [phone] Encounter Details Date Type Department Care Team (Late st Contact Info) Description 10/13/2018 Telephone [facility] Scheduling [address] [place], [place] [id number] Kizzy Monsivais Social History Tobacco Use Types Packs/Day Years Used Date Smoking Tobacco: Former Smokeless Tobacco: Never Alcohol Use Standard Drinks/Week Comments Yes 1 (1 standard drink = 0.6 oz pur e alcohol) Comments Unknown Sex and Gender Information Value Date Recorded Sex Assigned at Not on file Legal Sex Female 1:04 AM RN ENDOCRINOLOGY Gender Identity Not on file Sexual Orientation Not on file Occupation Industry Job Start Date Job End Date retired Not on file Not on file Not on file documented as of this encounter Miscellaneous Notes * Telephone Encounter - Kizzy Monsivais - 10/13/2018 12:51 PM CST ----- Message from Rodolfo Mantilla MD sent at 10/13/2018 8:35 AM RN ENDOCRINOLOGY ----- ----- Message ----- From: Leobardo Perez MD Sent: 10/12/2018 4:37 PM To: Rodolfo Mantilla MD ENDOCRINOLOGY documented in this encounter Plan of Treatment Not on file documented as of this encounter Visit Diagnoses Not on filedocumented in this encounter Care Teams Laboratory Clerk Relationship Specialty Start Date End Date Willy Cummings MD [address] [place] [address] PCP - General 08/06/17 12/20/19 documented as of this encounter
--- OUTSIDE RECORDS SUMMARY | 2024-10-31 03:52 | XMS_ITS | Encounter Summary ---
Author Organization [facility] Healthcare Address [address] [place] [address] Care Team Providers Care Machine Feed Operator Name Role Phone Brittny Salazar MD Primary Care Provider +1 -[phone] Encounter Details Date Type Department Care Team (Late st Contact Info) Description 06/15/2017 2:05 PM CDT - 06/15/2017 11:59 PM CDT Hospital Encounter [facility] INTERIM [phone] Lorena Etienne MD [address] [place] [address] Discharge Disposition: Discharge to home or self care Social History Tobacco Use Types Packs/Day Years Used Date Smoking Tobacco: Never Comments Unknown Sex and Gender Information Value Date Recorded Sex Assigned at Not on file Legal Sex Female 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 Gender Identity Not on file Sexual Orientation Not on file documented as of this encounter Last Filed Vital Signs Vital Sign Reading Time Taken Comments Blood Pressure - - Pulse - - Temperature - - Respiratory Rate - - Oxygen Saturation - - Inhaled Oxygen Concentration - - Weight - - Height 162.6 cm (5' 4 ) 04/13/2017 10:46 PM CDT Body Mass Index - - documented in this encounter Medications at Time of Discharge gabapentin (NEURONTIN) 300 mg capsule TAKE ONE CAPSULE 3 TIMES A DAY 10/13/2013 10/12/2018 mupirocin (BACTROBAN) 2 % ointment Appy to each nostril with a cotton swab twice daily 5 days prior to surgery 06/12/2017 10/12/2018 oxyCODONE-acetami nophen (PERCOCET) 5-325 mg per [...] Procedure Name Priority Date/Time Associated Diagnosis Comments MANUAL DIFFERENTIAL After X-Ray 06/15/2017 4 :53 PM CDT CBC WITHOUT DIFFERENTIAL After X-Ray 06/15/2017 4:53 PM CDT BASIC METABOLIC PANEL After X-Ray 06/15/2017 4:53 PM CDT DISCHARGE LABORATORY CUMULATIVE REPORT 06/15/2017 12:00 AM CDT documented in this encounter Results * (ABNORMAL) Manual Differential (06/15/2017 4:53 PM CDT) Platelet estimate Adequate [facility] Anisocytosis 2+(A) [facility] Poikilocytosis 3+(A) [facility] Microcytes 8-15/HPF(A) [facility] Teardrop cells 8-15/HPF(A) [facility] Elliptocytes 8-15/HPF(A) [facility] RBC morphology Present(A) [facility] Blood specimen (specimen) 06/15/2017 4:53 PM CDT 06/15/2017 7:33 PM CDT us Neyda Hewitt AGILE DEVELOPER LAB BLOOD ORDERABLES Ashley garcia Result [facility] [address] [facility] Department [place] [address] * (ABNORMAL) CBC without differential (06/15/2017 4:53 PM CDT) WBC 6.52 3.80 - 9.90 K/cumm [facility] RBC 4.18 3.90 - 5.20 M/cumm [facility] Hgb 8.5(L) 11.9 - 15.5 g/dL [facility] Hct 27.4(L) 35.6 - 45.5 % [facility] MCV 65.6(L) 81.3 - 96.4 fL [facility] MCH 20.3(L) 27.1 - 33.3 pg [facility] MCHC 31.0(L) 32.3 - 35.7 g/dL [facility] RDW CV 20.3(H) 11.1 - 14.9 % [facility] RDW SD 46.3 35.7 - 48.1 fL [facility] NRBC 0.0 0.0 - 0.2 % [facility] NRBC abs 0.00 0.00 - 0.01 K/cumm [facility] Plt 219 150 - 400 K/cumm [facility] MPV Not Measured 9.1 - 12.3 fL [facility] Blood specimen (specimen) 06/15/2017 4:53 PM CDT 06/15/2017 6:32 PM CDT Neyda Hewitt AGILE DEVELOPER LAB BLOOD ORDERABLES Edit ed Result - Final [facility] [address] [facility] [place] [address] * Basic metabolic panel (06/15/2017 4:53 PM CDT) [facility] Sodium 142 135 - 145 mmol/L [facility] Potassium, pl 4.4 3.3 - 4.9 mmol/L [facility] Chloride 105 97 - 110 mmol/L [facility] CO2 29 22 - 32 mmol/L [facility] BUN 24 8 - 25 mg/dL [facility] Glucose 98 70 - 199 mg/dL [facility] Creatinine 1.06 0.60 - 1.10 mg/dL [facility] Calcium 8.9 8.5 - 10.3 mg/dL [facility] Anion gap 8 2 - 15 mmol/L [facility] Blood specimen (specimen) 06/15/2017 4:53 PM CDT 06/15/2017 6:31 PM CDT Neyda Hewitt AGILE DEVELOPER LAB BLOOD ORDERABLES Ashley l Result [facility] [address] [facility] [place] [address] * DISCHARGE LABORATORY CUMULATIVE REPORT (06/15/2017 12:00 AM CDT) Narrative 06/15/2017 12:00 AM CDT Ordered by an unspecified provider. Historical Provider LAB BLOOD ORDERABLES Ashley l Result documented in this encounter Visit Diagnoses Not on filedocumented in this encounter Care Teams Machine Feed Operator Relationship Specialty Start Date End Date Brittny Salazar MD [address] [address] PCP - General 06/15/17 06/15/17 documented as of this encounter
--- OUTSIDE RECORDS SUMMARY | 2024-10-31 03:52 | XMS_ITS | Encounter Summary ---
Author Organization [facility] Healthcare Address [address] [place] [address] Care Team Providers Care Sales Service Executive Name Role Phone Brittny Salazar MD Primary Care Provider +1 -[phone] Encounter Details Date Type Department Care Team (Late st Contact Info) Description 05/07/2017 6:47 PM CDT - 05/07/2017 11:59 PM CDT Emergency [facility] Emergency Department [address] [place] [address] Teddy Borges MD [address] [place] [address] Discharge Disposition: Discharge to home or self care Social History Tobacco Use Types Packs/Day Years Used Date Smoking Tobacco: Never Comments Unknown Sex and Gender Information Value Date Recorded Sex Assigned at Not on file 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 Sex 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 Gender Identity Not on file Sexual Orientation Not on file documented as of this encounter Medications at Time of Discharge gabapentin (NEURONTIN) 300 mg capsule TAKE ONE CAPSULE 3 TIMES A DAY 10/13/2013 10/12/2018 documented as of this encounter Discharge Disposition Disposition Code Departure Means Destination Discharge to home or self care documented in this encounter Plan of Treatment Not on file documented as of this encounter Visit Diagnoses Not on filedocumented in this encounter Care Teams Sales Service Executive Relationship Specialty Start Date End Date Brittny Salazar MD [address] [address] PCP - General 05/15/09 05/11/17 documented as of this encounter
--- OUTSIDE RECORDS SUMMARY | 2024-10-31 03:52 | XMS_ITS | Encounter Summary ---
Author Organization [facility] Healthcare Address [address] [place] [address] Care Team Providers Care It Telecom Technician Name Role Phone Willy Cummings MD Primary Care Provider +1- [phone] Encounter Details Date Type Department Care Team (Latest Contact Info) Description 10/12/2018 5:19 PM 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'S ASSISTANT - 10/12/2018 5:20 PM 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'S ASSISTANT Hospital Encounter [facility] [address] [place] [address] Discharge Disposition: Discharge to home or self care Social History Tobacco Use Types Packs/Day Years Used Date Smoking Tobacco: Former Smokeless Tobacco: Never Alcohol Use Standard Drinks/Week Comments Yes 1 (1 standard drink = 0.6 oz pur e alcohol) Comments Unknown Sex and Gender Information Value Date Recorded Sex Assigned at Not on file Legal Sex Female 1:04 AM 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'S ASSISTANT Gender Identity Not on file Sexual Orientation [...] Procedure Name Priority Date/Time Associated Diagnosis Comments NEURO CT MR OUTSIDE REFERENCE Routine 10/12/2018 5:19 PM 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'S ASSISTANT Diagnosis unknown documented in this encounter Results * Neuro CT MR Outside Reference (10/12/2018 5:19 PM 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'S ASSISTANT) Impressions [facility] - 10/12/2018 5:19 PM 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'S ASSISTANT These images are for Reference purposes only and have not been reviewed by [facility] Radiology. ??There will be no report generated by a [facility] Radiologist. Narrative [facility] - 10/12/2018 5:19 PM 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'S ASSISTANT EXAMINATION: ??Images For Reference Purposes Only us Leobardo Perez MD IMG CT PROCEDURES Final Resul t [facility] documented in this encounter Visit Diagnoses Not on filedocumented in this encounter Care Teams It Telecom Technician Relationship Specialty Start Date End Date Willy Cummings MD [address] [place] [address] PCP - General 08/06/17 12/20/19 documented as of this encounter
--- OUTSIDE RECORDS SUMMARY | 2024-10-31 03:52 | XMS_ITS | Encounter Summary ---
Author Organization [facility] Address [address] [place] [address] Phone Care Team Providers Care Ebd Special Education Teacher Name Role Phone Willy Cummings MD Primary Care Provider +1- [phone] Encounter Details Date Type Department Care Team (Late st Contact Info) Description 09/01/[address] [facility] Scheduling [address] [place], [place] [id number] Lyn De Oliveira CNA Social History Tobacco Use Types Packs/Day Years Used Date Smoking Tobacco: Never Smokeless Tobacco: Never Alcohol Use Standard Drinks/Week Comments Yes 1 (1 standard drink = 0.6 oz pur e alcohol) Comments Unknown Sex and Gender Information Value Date Recorded Sex Assigned at Not on file Legal Sex Female 1:04 AM LEAD JAVASCRIPT ENGINEER Gender Identity Not on file Sexual Orientation Not on file documented as of this encounter Miscellaneous Notes * Telephone Encounter - Lyn De Oliveira CNA - 09/03/2018 3:53 PM LEAD JAVASCRIPT ENGINEER Called pt. Appt. 10/12/2018. PT. TO BRING CD TO APPT. JAVASCRIPT ENGINEER * Telephone Encounter - Rama Horne RN - 09/03/2018 2:34 PM LEAD JAVASCRIPT ENGINEER Yes we will see. JAVASCRIPT ENGINEER * Telephone Encounter - Lyn De Oliveira CNA - 09/02/2018 12:03 PM LEAD JAVASCRIPT ENGINEER [facility]AIL[facility]. Called pt. Reg/intake updated and records in chart. Next on tally. Sending forreview, will you see? JAVASCRIPT ENGINEER * Telephone Encounter - Lyn De Oliveira CNA - 09/02/2018 11:39 AM LEAD JAVASCRIPT ENGINEER Department of Neurological Surgery at [facility] Cranial Intake Sheet 09/02/18 Olga Turner Rolf 1945 [id number] [facility] [address] Phone: [phone] Willy Cummings MD PCP Office Number: [phone] Office Caller Name: PATIENT Referred to: [facility]AIL[facility] Consult: YES Second Opinion: NO Diagnosis: NPH Requested time frame: Blurred Vision: YES, BOTH EYES Loss of Sight: NO Weakness on one side of body or a particular area: YES, LEGS Patient can open both eyes equally: YES Loss of bowel or bladder control: YES, BLADDER LOSS OF BALLANCE Duration of symptoms: 1 YEAR Height:5'4 Weight:200 LBS. BMI: 34.3 Prior brain surgery: NO Other surgeon seen: NO Litigation: NO MVA: NO W/C: NO Insurance: MEDICARE AND [facility] Imaging Done: YES, MRI-05/24/2018 CISTERNOGRAM-06/14/2018 SPINAL PUNCTURE DIAG W/IMAGING-06/14/2018 Does the patient have any metal in their body? YES, BOTH KNEES Appointment scheduled: PT. TO BRING CD TO APPT. JAVASCRIPT ENGINEER * Telephone Encounter - Enma Morales - 09/01/2018 12:19 PM LEAD JAVASCRIPT ENGINEER Records recd, MRI-B. JAVASCRIPT ENGINEER * Telephone Encounter - Lyn De Oliveira CNA - 09/01/2018 10:27 AM LEAD JAVASCRIPT ENGINEER Referring office called. NPH notes and Imaging are in chart. Need reg/ntake then send to review to next on tally. JAVASCRIPT ENGINEER documented in this encounter Plan of Treatment Not on file documented as of this encounter Visit Diagnoses Not on filedocumented in this encounter Care Teams Ebd Special Education Teacher Relationship Specialty Start Date End Date Willy Cummings MD [address] [place] [address] PCP - General 08/06/17 12/20/19 documented as of this encounter
--- OUTSIDE RECORDS SUMMARY | 2024-10-31 03:52 | XMS_ITS | Encounter Summary ---
Author Organization [facility] Healthcare Address [address] [place] [address] Care Team Providers Care Hvac Journeyman Name Role Phone Willy Cummings MD Primary Care Provider +1- [phone] Encounter Details Date Type Department Care Team (Late st Contact Info) Description 05/14/2017 9:12 AM CDT - 05/14/2017 11:59 PM CDT Hospital Encounter [facility] [phone] Yousif Etienne MD [address] [place] [address] Discharge Disposition: Discharge to home or self care Social History Tobacco Use Types Packs/Day Years Used Date Smoking Tobacco: Never Comments Unknown Sex and Gender Information Value Date Recorded Sex Assigned at Not on file Legal Sex Female 1:04 AM 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 SUPERINTENDENT Gender Identity Not on file Sexual Orientation [...] XR KNEE 1 OR 2 VW Routine 05/14/2017 2:3 7 PM CDT documented in this encounter Results * XR Knee 1 Or 2 VW (05/14/2017 2:37 PM CDT) Anatomical Region Laterality Modality N/A Radiographic Zhane ging 05/14/2017 2:37 PM CDT Narrative 05/14/2017 2:37 PM CDT IVANA SEAMAN MD, PHD FINAL REPORT ACC# ??Date Time ??Exam [id number] May 14, 2017 09:37:00 [id number] Knee 1 or 2 views R EXAMINATION: ?Right knee 1 or 2 views HISTORY: ??Infected right knee arthroplasty FINDINGS: ??Two-view examination of the right knee is compared to radiographs from April 21 2017. The explanted right knee arthroplasty with antibiotic cement spacer appears unchanged with a moderate knee joint effusion. There is no acute fracture. Anterior soft tissue swelling appears change. There is resolution of the intra-articular soft tissue gas. IMPRESSION: ?? 1. 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 Dictated By: ?? IVANA SEAMAN MD, PHD ??on May 14 2017 ??9:39A This document has been electronically signed by: IVANA SEAMAN MD, PHD on May 14 2017 ??9:39A [id number] SEAMAN MD, PHD FINAL REPORT Attending: ??CHANDAN, ??YOUSIF Requesting: ??CHANDAN, ??YOUSIF Requesting Fax: ?? Attending Fax: ?? Attending ID: ??[id number] Requesting ID: ??[id number] Report To 1 ID: ??[id number] ? Report To 1 Name: ??, ?? Report To 1 FAX: ?? NextGen Order #: ?? Procedure Note Miscellaneous, Not In File - 08/17/2017 IVANA SEAMAN MD, PHD FINAL REPORT ACC# Date Time Exam [id number] May 14, 2017 09:37:00 15775 Knee 1 or 2 views R EXAMINATION: Right knee 1 or 2 views HISTORY: Infected right knee arthroplasty FINDINGS: Two-view examination of the right knee is compared to radiographs from April 21 2017. The explanted right knee arthroplasty with antibiotic cement spacer appears unchanged with a moderate knee joint effusion. There is no acute fracture. Anterior soft tissue swelling appears change. There is resolution of the intra-articular soft tissue gas. IMPRESSION: 1. 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 Dictated By: IVANA SEAMAN MD, PHD on May 14 2017 9:39A This document has been electronically signed by: IVANA SEAMAN MD, PHD on May 14 2017 9:39A [id number] SEAMAN MD, PHD FINAL REPORT Attending: YOUSIF ETIENNE Requesting: YOUSIF ETIENNE Requesting Fax: Attending Fax: Attending ID: [id number] Requesting ID: [id number] Report To 1 ID: [id number] Report To 1 Name: , Report To 1 FAX: NextGen Order #: Yousif Etienne MD IMG XR PROCEDURES Ed ited Result - Final documented in this encounter Visit Diagnoses Not on filedocumented in this encounter Care Teams Hvac Journeyman Relationship Specialty Start Date End Date Willy Cummings MD [address] [place] [address] PCP - General 05/14/17 05/14/17 documented as of this encounter
--- OUTSIDE RECORDS SUMMARY | 2024-10-31 03:52 | XMS_ITS | Encounter Summary ---
Author Organization [facility] Address [address] [facility] [address] [place] [address] Phone Care Team Providers Care Medical Communication Specialist Name Role Phone Willy Cummings MD Primary Care Provider +1- [phone] Reason for Visit * Reason Comments Follow-up parkinsonism Encounter Details Date Type Department Care Team (Late st Contact Info) Description 05/24/2019 9:00 AM CDT Office Visit [facility] Movement Disorders [address] [place] [address] [phone] Shruthi Rivero, CHILD CARE LEAD TEACHER [address] [place] [address] Parkinsonism, unspecified Parkinsonism type (CMS/HCC) (Primary Dx); Cerebral ventriculomegaly; Anxiety and depression Social History Tobacco Use Types Packs/Day Years Used Date Smoking Tobacco: Former Smokeless Tobacco: Never Alcohol Use Standard Drinks/Week Comments Yes 1 (1 standard drink = 0.6 oz pur e alcohol) Comments Unknown Sex and Gender Information Value Date Recorded Sex Assigned at Not on file 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 Gender Identity Not on file Sexual Orientation Not on file Occupation Industry Job Start Date Job End Date retired Not on file Not on file Not on file documented as of this encounter Last Filed Vital Signs Vital Sign Reading Time Taken Comments Blood Pressure 153/88 05/24/2019 9:15 AM CDT Pulse 93 05/24/2019 9:15 AM CDT Temperature - - Respiratory Rate - - Oxygen Saturation - - Inhaled Oxygen Concentration - - Weight 102.8 kg (226 lb 9.6 oz) 05/24/2019 9:15 AM CDT Height 163.8 cm (5' 4.5 ) 05/24/2019 9:15 AM CDT Body Mass Index 38.3 05/24/2019 9:15 AM CDT documented in this encounter Ordered Prescriptions Prescription Sig Dispense Quantity Refills Last Filled Start Date End Date DULoxetine DR (CYMBALTA) 30 mg capsule Take 1 capsule (30 mg total) by mouth 2 (two) times a day 60 capsule 5 05/24/2019 9 documented in this encounter Progress Notes * Shruthi Rivero NP - 05/24/2019 9:00 AM CDT [facility] Office Visit Patient: Olga Bansal Referred by: Willy Cummings MD : 1945 Visit Date: 05/24/2019 Clinician: Shruthi Rivero NP Chief Complaint Olga Bansal is a 73 y.o. female who presents for Follow-up (parkinsonism) Hand Dominance: Referred by Willy Cummings MD. Her PMD is Willy Cummings MD. HPI: She is up to taking carbi/levo 1.5 tabs usually twice per day with meals but even when taking with meals, she still feels sick. If she takes it on an empty stomach, she vomits and she generally only eats twice per day and that is why she is only doing BID dosing. She has had 2 sets of PT sincelast visit and also worked on aquatherapy. Her balance is better but she thinks this is more related to PT. She generally doesn't note any kick in or wear off. She cannot tell if she has missed a dose. She also has spinal stenosis and arthritis and has had several knee surgeries. She has noted morecramping in her hands and this could persist for a few minutes. She has not noted worsening in handdexterity except for the hand cramping when doing stained glass movements. She has noted some improvement in ability to roll in bed or arise from chairs. She is able to walk further than she did in the past. She has less falls since starting PT and is better able to catch herself. No lightheadedness when arising from chair. No hallucinations. No trouble chewing or swallowing. Some occasional constipation. Sleep at night is so-so. She is on medical marijuana and this tends to help with her sleep. Mood and spirits are so-so. She just had the anniversary of when she lost her son. She thinks she is overall depressed. She can have crying fits every few weeks. Current Outpatient Medications Medication Sig Dispense Refill ??? atorvastatin (LIPITOR) 10 mg tablet Take 10 mg by mouth daily. ??? carbidopa-levodopa (SINEMET) 25-100 mg per tablet Take 1 1/2 tab by mouth 3 times daily. Take with meals 135 tablet 11 ??? cyclobenzaprine (FLEXERIL) 5 mg tablet Take by mouth 3 (three) times a day as needed. 1 ??? gabapentin (NEURONTIN) 300 mg capsule Take 300 mg by mouth 4 (four) times a day. ??? hydroCHLOROthiazide (HYDRODIURIL) 12.5 mg tablet Take 12.5 mg by mouth daily. 3 ??? levothyroxine (SYNTHROID, LEVOTHROID) 100 mcg tablet Take 100 mcg by mouth daily. 5 ??? losartan (COZAAR) 50 mg tablet Take 50 mg by mouth daily. ??? metoprolol XL (TOPROL-XL) 50 mg 24 hr tablet Take 50 mg by mouth daily. ??? DULoxetine DR (CYMBALTA) 30 mg capsule Take 1 capsule (30 mg total) by mouth 2 (two) times a day 60 capsule 5 No current facility-administered medications for this visit. [...] resource strain: Not on file ??? Food insecurity: Worry: Not on file Inability: Not on file ??? Transportation needs: Medical: Not on file Non-medical: Not on file Tobacco Use ??? Smoking status: Former Smoker ??? Smokeless tobacco: Never Used Substance and Sexual Activity ??? Alcohol use: Yes Alcohol/week: 0.6 oz Types: 1 Glasses of wine per week ??? Drug use: No ??? Sexual activity: Not on file Lifestyle ??? Physical activity: Days per week: Not on file Minutes per session: Not on file ??? Stress: Not on file Relationships ??? Social connections: Talks on phone: Not on file Gets together: Not on file Attends anabaptism service: Not on file Active member of club or organization: Not on file Attends meetings of clubs or organizations: Not on file Relationship status: Not on file ??? Intimate partner violence: Fear of current or ex partner: Not on file Emotionally abused: Not on file Physically abused: Not on file Forced sexual activity: Not on file Other Topics Concern ??? Not on file Social History Narrative ??? Not on file Review of Systems Constitutional: Negative. HENT: Negative. Eyes: Positive for discharge. Respiratory: Negative. Cardiovascular: Negative. Gastrointestinal: Positive for constipation. Endocrine: Negative. Genitourinary: Negative. Musculoskeletal: Positive for gait problem. Allergic/Immunologic: Negative. Neurological: Positive for tremors. Hematological: Negative. Psychiatric/Behavioral: Positive for dysphoric mood. Vitals BP 153/88 (BP Location: Right arm, Patient Position: Sitting) Pulse 93 Ht 163.8 cm (5' 4.5 ) Wt 102.8 kg (226 lb 9.6 oz) BMI 38.30 kg/m?? Physical Exam Mental Status LOC: Alert Attention: Normal Speech: [...] 1 Chorea: Absent Dystonia: Absent Tics: Absent Motor - Involuntary Part 2 Myoclonus: Absent UPDRS - Unified Parkinson's Disease Rating Scale UPDRS Last Medication Given : Carbidopa/Levodopa Last med given Date: 05/24/19 Last med given time: 729 ON/OFF: ON [...] RIGHT hand: 0 Action/postural tremor LEFT hand: 0 Rigidity NECK: 1 Rigidity RIGHT upper extremity: 1.5 Rigidity LEFT upper extremity: 1.5 Rigidity RIGHT lower extremity: 0 Rigidity LEFT lower extremity: 1 Finger taps RIGHT hand: 1 Finger taps LEFT hand: 2 Hand Movements RIGHT hand: 0.5 Hand Movements LEFT hand: 0.5 Rapid Alternating Movements of Hands RUE: 1 Rapid Alternating Movements of Hands LUE: 1.5 Agility RIGHT le.5 Agility LEFT le Speech: 1 - Slight loss of expression, diction and/or volume. Facial expression: 1 - Minimal hypomimia, could be normal Poker Face . Arising from chair: 1 - Slow, or may need more than one attempt. Posture: 1 - Not quite erect, slightly stooped posture, could be normal for older person. Gait: 1 - Walks slowly, may shuffle with short steps, but no festination (hastening steps) or propulsion. Postural stability: 2 - Absence of postural response, would fall if not caught by examiner. Body bradykinesia and hypokinesia: 1 - Minimal slowness, giving movement a deliberate character, could be normal for some persons.Possibly reduced amplitude. Part III Total Score: 21 Assessment/Plan Diagnoses and all orders for this visit: Parkinsonism, unspecified Parkinsonism type (CMS/HCC) (G20) (Primary) Assessment & Plan: Assessment: Ms. Bansal is a 73 y/o woman [...] [employer] youtube channel. 5. May still consider lumbardrain depending on response to CD/LD. Cerebral ventriculomegaly (G93.89) Anxiety and depression (F41.9, F32.9) Other orders - DULoxetine DR (CYMBALTA) 30 mg capsule; Take 1 capsule (30 mg total) by mouth 2 (two) times a day Return in about 14 weeks (around 08/30/2019). Cosigned by Rodolfo Mantilla MD at 05/30/2019 1:04 PM CDT Associated attestation - Rodolfo Mantilla MD - 05/30/2019 1:04 PM CDT I reviewed the HPI, exam and assessment and plan, but did not see the patient personally. Agree with the assessment and plan by CHILD CARE LEAD TEACHER Shruthi Rivero. documented in this encounter Miscellaneous Notes * Assessment & Plan Note - Shruthi Rivero NP - 05/24/2019 9:14 AM CDT Associated Problem(s): Parkinsonism (HCC) Assessment: Ms. Bansal is a 73 y/o woman [...] stenosis pain. I gave her info on [employer] channel exercises and asked that she continue her aggressive exercise regimen. Plan: 1. Carbidopa/levodopa: Try to push slowly up to 3 tabs tid. If nausea is a bigger issue, she will let us know and we will order domperidone. 2. Taper and stop citalopram, start duloxetine as directed. 3. Continue intensive exercise. 4. Gave info on [employer] youtube channel. 5. May still consider lumbardrain depending on response to CD/LD. documented in this encounter Plan of Treatment Not on file documented as of this encounter Visit Diagnoses Diagnosis Parkinsonism, unspecified Parkinsonism type (HCC)- Primary Cerebral ventriculomegaly Other conditions of brain Anxiety and depression documented in this encounter Discontinued Medications Medication Sig Discontinue Reason Start Date End Da te oxyCODONE (OXY-IR) 5 mg capsuleIndications:Pain Take 5 mg by mouth every 8 (eight) hours. Take 1 every 8 hours for 3 days/take two tablets for 3days/take 1 a day for 3 days 05/24/2019 citalopram (CeleXA) 40 mg tablet TAKE 1 TABLET BY MOUTH EVERY DAY. DOSE INCREASE 08/18/2018 05/24/2019 documented as of this encounter Care Teams Medical Communication Specialist Relationship Specialty Start Date End Date Willy Cummings MD [address] [place] [address] PCP - General 08/06/17 12/20/19 documented as of this encounter
--- OUTSIDE RECORDS SUMMARY | 2024-10-31 03:52 | XMS_ITS | Encounter Summary ---
Author Organization [facility] Address [address] [place] [address] Care Team Providers Care Rehab Rn Name Role Phone Willy Cummings MD Primary Care Provider [phone]- [phone] Reason for Referral * Diagnostic Imaging (Routine) - Closed Specialty Diagnoses / Procedures Referred By Devin laboy Referred To Contact Radiology Diagnoses Acute deep vein thrombosis (DVT) of distal vein of right lower extremity (HCC) Procedures CT Abdomen Pelvis W Contrast CT Abdomen W Contrast Paras Simon MD Phone: tel: fax: [address] [phone] Referral ID Status Reason Start Date Expiration Date Visits Re quested Visits Authorized [id number] Closed 03/26/2018 09/22/2018 1 1 Reason for Visit * Diagnostic Imaging (Routine) - Closed Specialty Diagnoses / Procedures Referred By Devin laboy Referred To Contact Radiology Diagnoses Acute deep vein thrombosis (DVT) of distal vein of right lower extremity (HCC) Procedures CT Abdomen Pelvis W Contrast CT Abdomen W Contrast Paras Simon MD Phone: tel: fax: [address] [phone] Referral ID Status Reason Start Date Expiration Date Visits Re quested Visits Authorized [id number] Closed 03/26/2018 09/22/2018 1 1 Encounter Details Date Type Department Care Team (Late st Contact Info) Description 04/15/2018 10:04 AM CDT - 04/15/2018 11:59 PM CDT Hospital Encounter [facility] [address] [place] [address] Paras Simon MD [address] [facility] [address] [place] [address] Acute deep vein thrombosis (DVT) of distal vein of right lower extremity (CMS/HCC) Discharge Disposition: Discharge to home or self care Social History Tobacco Use Types Packs/Day Years Used Date Smoking Tobacco: Never Comments Unknown Sex and Gender Information Value Date Recorded Sex Assigned at Not on file 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 Gender Identity Not on file Sexual [...] Name Priority Date/Time Associated Diagnosis Comments CT ABDOMEN PELVIS W CONTRAST Schedule Routine, Read Routine (OP Routine) 04/15/2018 10:54 AM CDT Acute deep vein thrombosis (DVT) of distal vein of right lower extremity (CMS/HCC) POCT CREATININE FOR CONTRAST EVALUATION Routine Gen Lab 04/15/2018 10:29 AM CDT documented in this encounter Results * CT Abdomen Pelvis W Contrast (04/15/2018 10:54 AM CDT) Anatomical Region Laterality Modality Body N/A Computed Tomogra phy 04/15/2018 11:1 8 AM CDT Impressions 04/15/2018 11:18 AM CDT Indeterminate 4 mm right lower lobe nodule, as described. Splenomegaly and surface nodularity of the liver, consistent with hepatocellular disease. Inferior vena caval filter in expected location. There is no CT evidence for thrombus in the inferior vena cava, common iliac veins, nor external iliac veins. Electronically signed by: Chuck Cuellar M.D. Narrative 04/15/2018 11:18 AM CDT EXAMINATION: ??Computed tomography of the abdomen and pelvis with intravenous contrast HISTORY: Patient with deep vein thrombosis of the right lower extremity. There is clinical concern for inferior vena caval or iliac venous thrombosis. TECHNIQUE: ??Transaxial computed tomographic images of the abdomen and pelvis were obtained with intravenous contrast according to the inferior vena caval protocol after the uneventful administration of 100 mL Opti-Ray 350 intravenous contrast. COMPARISON: There are no prior CT studies available for comparison. Reference is made to images obtained during placement of an inferior vena caval filter on 04/14/2017. FINDINGS: Limited images of the lung bases show no pleural or pericardial effusion. There is bibasilar atelectasis, somewhat more extensive on the left than on the right. There is a indeterminate 4 mm nodule in the right lower lobe at table position -216. Images of the upper abdomen show a slightly enlarged spleen with enlarged collaterals in the splenic hilus. There is nodularity to the surface of the liver. These findings suggest hepatocellular disease. There is been a cholecystectomy, and there is no dilation of intra or extrahepatic biliary ducts. No focal hepatic parenchymal abnormalities are noted. The pancreas is somewhat atrophic but there are no pancreatic masses. There is no adenopathy in the gastrohepatic ligament. The left adrenal gland is normal. There is a 1 cm nodule in the lateral limb of the right adrenal gland that could represent a small adenoma. There are no solid renal masses, there is no hydronephrosis and there are no renal or ureteral calculi. There is no periaortic or pericaval adenopathy. An inferior vena caval filter is present in expected position. Evaluation of the inferior vena cava, common iliac veins and external and internal iliac veins shows no evidence of filling defect area The small intestine and intestinal mesentery are normal in appearance. No colonic or pericolonic abnormalities are noted. Images through the pelvis show a normal-appearing urinary bladder. There is a metallic structure anterior to the dome of the bladder which may reflect previous bladder suspension. The uterus is not visible and is likely surgically absent. There is no periiliac or perifemoral adenopathy. The rectum, perirectal fat initial rectal fossae are normal. Images obtained at bone window show no suspicious lytic or blastic lesions. Multiplanar reconstructions demonstrate narrowing of the L5-S1 disc space. There is degenerative disc disease at multiple thoracic and lumbar levels. There is been a vertebroplasty at T12 and there is mild loss of vertebral height at T11 and T10. Procedure Note Chuck Cuellar MD - 04/15/2018 EXAMINATION: Computed tomography of the abdomen and pelvis with intravenous contrast HISTORY: Patient with deep vein thrombosis of the right lower extremity. There is clinical concern for inferior vena caval or iliac venous thrombosis. TECHNIQUE: Transaxial computed tomographic images of the abdomen and pelvis were obtained with intravenous contrast according to the inferior vena caval protocol after the uneventful administration of 100 mL Opti-Ray 350 intravenous contrast. COMPARISON: There are no prior CT studies available for comparison. Reference is made to images obtained during placement of an inferior vena caval filter on 04/14/2017. FINDINGS: Limited images of the lung bases show no pleural or pericardial effusion. There is bibasilar atelectasis, somewhat more extensive on the left than on the right. There is a indeterminate 4 mm nodule in the right lower lobe at table position -216. Images of the upper abdomen show a slightly enlarged spleen with enlarged collaterals in the splenic hilus. There is nodularity to the surface of the liver. These findings suggest hepatocellular disease. There is been a cholecystectomy, and there is no dilation of intra or extrahepatic biliary ducts. No focal hepatic parenchymal abnormalities are noted. The pancreas is somewhat atrophic but there are no pancreatic masses. There is no adenopathy in the gastrohepatic ligament. The left adrenal gland is normal. There is a 1 cm nodule in the lateral limb of the right adrenal gland that could represent a small adenoma. There are no solid renal masses, there is no hydronephrosis and there are no renal or ureteral calculi. There is no periaortic or pericaval adenopathy. An inferior vena caval filter is present in expected position. Evaluation of the inferior vena cava, common iliac veins and external and internal iliac veins shows no evidence of filling defect area The small intestine and intestinal mesentery are normal in appearance. No colonic or pericolonic abnormalities are noted. Images through the pelvis show a normal-appearing urinary bladder. There is a metallic structure anterior to the dome of the bladder which may reflect previous bladder suspension. The uterus is not visible and is likely surgically absent. There is no periiliac or perifemoral adenopathy. The rectum, perirectal fat initial rectal fossae are normal. Images obtained at bone window show no suspicious lytic or blastic lesions. Multiplanar reconstructions demonstrate narrowing of the L5-S1 disc space. There is degenerative disc disease at multiple thoracic and lumbar levels. There is been a vertebroplasty at T12 and there is mild loss of vertebral height at T11 and T10. IMPRESSION: Indeterminate 4 mm right lower lobe nodule, as described. Splenomegaly and surface nodularity of the liver, consistent with hepatocellular disease. Inferior vena caval filter in expected location. There is no CT evidence for thrombus in the inferior vena cava, common iliac veins, nor external iliac veins. Electronically signed by: Chuck Cuellar M.D. us Paras Simon MD IMG CT PROCEDURES Final Result * POCT creatinine for contrast evaluation (04/15/2018 10:29 AM CDT) Creatinine POC 1.0 0.6 - 1.1 mg/dL [facility] Blood specimen (specimen) 04/15/2018 10:29 AM CDT 04/15/2018 10:29 AM CDT Narrative [facility] - 04/15/2018 10:49 AM CDT us Paras Simon MD POINT OF CARE TEST RANDY DUENAS Final Result [facility] [place] [address] documented in this encounter Visit Diagnoses Diagnosis Acute deep vein thrombosis (DVT) of distal vein of right lower extremity (HCC) documented in this encounter Administered Medications Inactive Administered Medications - up to 3 most recent administrations Medication Order MAR Action Action Date Dose Rate Site ioversol (OPTIRAY 350) syringe syringe 100 mL 100 mL, intravenous, Once in imaging, contrast, Starting on Magalis 04/15/18 at 1047, For 1 dose Given 04/15/2018 10:54 AM CDT 100 mL documented in this encounter Orders Medications Ordered That Tobi ht Not Have Been Administered Count Last Ordered Date First Ordered Date ioversol (OPTIRAY 350) syrin ge syringe 100 mL 1 04/15/2018 documented in this encounter Care Teams Rehab Rn Relationship Specialty Start Date End Date Willy Cummigns MD [address] [place] [address] PCP - General 08/06/17 12/20/19 documented as of this encounter
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
--- OUTSIDE RECORDS SUMMARY | 2024-10-31 03:52 | XMS_ITS | Encounter Summary ---
Author Organization [facility] Healthcare Address [address] [place] [address] Care Team Providers Care Lightning Rod Erector Name Role Phone Willy Cummings MD Primary Care Provider +1- [phone] Encounter Details Date Type Department Care Team (Late st Contact Info) Description 04/14/2018 Orders Only Radiology [address] [place] [address] Paras Simon MD [address] [facility] [address] [place] [address] Social History Tobacco Use Types Packs/Day Years Used Date Smoking Tobacco: Never Comments Unknown Sex and Gender Information Value Date Recorded Sex Assigned at Not on file Legal Sex Female 1:04 AM HOSPITAL SOCIAL WORKER Gender Identity Not on file Sexual Orientation Not on file documented as of this encounter Plan of Treatment Not on file documented as of this encounter Visit Diagnoses Not on filedocumented in this encounter Care Teams Lightning Rod Erector Relationship Specialty Start Date End Date Willy Cummings MD [address] [place] [address] PCP - General 08/06/17 12/20/19 documented as of this encounter
--- OUTSIDE RECORDS SUMMARY | 2024-10-31 03:52 | XMS_ITS | Encounter Summary ---
Author Organization [facility] Healthcare Address [address] [place] [id number] Care Team Providers Care Industrial Controls Technician Name Role Phone Willy Cummings MD Primary Care Provider +1- [phone] Cecilia Lim MD Primary Care Provider Rodolfo Mantilla MD Unavailable Sabrina Ruffin MD Primary Care Provider Encounter Details Date Type Department Care Team (Late st Contact Info) Description 12/08/2017 Orders Only [address] [address] Nehemiah Munoz MD [address] [place] [address] Social History Tobacco Use Types Packs/Day Years Used Date Smoking Tobacco: Never Comments Unknown Sex and Gender Information Value Date Recorded Sex Assigned at Not on file Legal Sex Female 1:04 AM DIRECTOR OF CLINICAL SERVICES Gender Identity Not on file Sexual Orientation Not on file documented as of this encounter Plan of Treatment Not on file documented as of this encounter Visit Diagnoses Not on filedocumented in this encounter Care Teams Industrial Controls Technician Relationship Specialty Start Date End Date Willy Cummings MD [address] [place] [address] PCP - General 08/06/17 12/20/19 Cecilia Lim MD [address] [place] [address] PCP - General Family Medicine 12/21/19 12/30/20 Sabrina Ruffin MD [address] [place] [address] PCP - General Family Medicine 12/31/20 Rodolfo Mantilla MD [address] [place] [address] Consulting Physician Neurology 12/21/19 documented as of this encounter
--- OUTSIDE RECORDS SUMMARY | 2024-10-31 03:52 | XMS_ITS | Encounter Summary ---
Author Organization [facility] Address [address] [place] [address] Phone Care Team Providers Care Gymnastics Coach Or Instructor Name Role Phone Willy Cummings MD Primary Care Provider +1- [phone] Cecilia Lim MD Primary Care Provider Rodolfo Mantilla MD Unavailable Sabrina Ruffin MD Primary Care Provider Encounter Details Date Type Department Care Team (Late st Contact Info) Description 12/08/2017 Orders Only [facility] ProviderClifford MD [address] [place] [address] Social History Tobacco Use Types Packs/Day Years Used Date Smoking Tobacco: Never Comments Unknown Sex and Gender Information Value Date Recorded Sex Assigned at Not on file Legal Sex Female 1:04 AM INSURANCE OPERATIONS REP Gender Identity Not on file Sexual Orientation Not on file documented as of this encounter Plan of Treatment Not on file documented as of this encounter Procedures Procedure Name Priority Date/Time Associated Diagnosis Comments SURGICAL PATHOLOGY 12/08/2017 12 :00 AM INSURANCE OPERATIONS REP documented in this encounter Results * SURGICAL PATHOLOGY (12/08/2017 12:00 AM INSURANCE OPERATIONS REP) Narrative 12/08/2017 12:00 AM INSURANCE OPERATIONS REP Ordered by an unspecified provider. Historical Provider LAB PATHOLOGY ORDERABLES Final Result documented in this encounter Visit Diagnoses Not on filedocumented in this encounter Care Teams Gymnastics Coach Or Instructor Relationship Specialty Start Date End Date Willy Cummings MD [address] [place] [address] PCP - General 08/06/17 12/20/19 Cecilia Lim MD [address] [place] [address] PCP - General Family Medicine 12/21/19 12/30/20 Sabrina Ruffin MD [address] [place] [address] PCP - General Family Medicine 12/31/20 Rodolfo Mantilla MD [address] [place] [address] Consulting Physician Neurology 12/21/19 documented as of this encounter
--- OUTSIDE RECORDS SUMMARY | 2024-10-31 03:52 | XMS_ITS | Encounter Summary ---
Author Organization [facility] Healthcare Address [address] [place] [address] Care Team Providers Care Web Development Director Name Role Phone Willy Cumminsg MD Primary Care Provider +1- [phone] Encounter Details Date Type Department Care Team (Late st Contact Info) Description 04/15/2018 Orders Only Radiology 1 [place] [address] Paras Simon MD [address] [facility] [address] [place] [address] Social History Tobacco Use Types Packs/Day Years Used Date Smoking Tobacco: Never Comments Unknown Sex and Gender Information Value Date Recorded Sex Assigned at Not on file Legal Sex Female 1:04 AM CHILLER HAND Gender Identity Not on file Sexual Orientation Not on file documented as of this encounter Plan of Treatment Not on file documented as of this encounter Visit Diagnoses Not on filedocumented in this encounter Care Teams Web Development Director Relationship Specialty Start Date End Date Willy Cummings MD [address] [place] [address] PCP - General 08/06/17 12/20/19 documented as of this encounter
--- OUTSIDE RECORDS SUMMARY | 2024-10-31 03:52 | XMS_ITS | Encounter Summary ---
Author Organization [facility] Healthcare Address [address] [place] [address] Care Team Providers Care Culture Room Worker Name Role Phone Willy Cummings MD Primary Care Provider +1- [phone] Encounter Details Date Type Department Care Team (Latest Contact Info) Description 05/14/2017 11:01 AM CDT - 05/14/2017 11:59 PM CDT Hospital Encounter [facility] INTERIM [phone] Charlie Rockwell MD [address] [facility] [address] [place] [address] Discharge Disposition: Discharge to home or self care Social History Tobacco Use Types Packs/Day Years Used Date Smoking Tobacco: Never Comments Unknown Sex and Gender Information Value Date Recorded Sex Assigned at Not on file Legal Sex Female 1:04 AM STRIPPER SOFT PLASTIC Gender Identity Not on file Sexual Orientation [...] Procedure Name Priority Date/Time Associated Diagnosis Comments PROTIME-INR Routine Gen Lab 05/14/2017 12:15 PM CDT ERYTHROCYTE SEDIMENTATION RATE Routine Gen Lab 05/14/2017 11:39 AM CDT CRP (ACUTE PHASE) Routine Gen Lab 05/14/2017 11: 39 AM CDT DISCHARGE LABORATORY CUMULATIVE REPORT 05/14/2017 12:00 AM CDT documented in this encounter Results * (ABNORMAL) Protime-INR (05/14/2017 12:15 PM CDT) [facility] PT 14.8(H) 9.2 - 14.0 sec [facility] INR 1.29(H) 0.81 - 1.22 [facility] Comment: Interpretive Data Inpatient therapeutic ranges* Atrial fibrillation ?2.0-3.0 INR Venous thrombo-embolism ?2.0-3.0 INR Bioprosthetic heart valve ?* Mechanical heart valve, bileaflet or tilting disk,aortic position ? 2.0-3.0 INR All other,or bileaflet or tilting disk, in mitral position ? 2.5-3.5 INR *See the pharmacy resource directory (PHRED) for an updated copy of the Tool Book at [email or web address] Current Interpretive Data was last revised 2012. Blood specimen (specimen) 05/14/2017 12:15 PM CDT 05/14/2017 12:35 PM CDT us Lorena Etienne MD LAB BLOOD ORDERABLES Final Result [facility] Department [place] [address] * (ABNORMAL) CRP (acute phase) (05/14/2017 11:39 AM CDT) CRP 40.4(H) 0.0 - 9.9 mg/L [facility] Blood specimen (specimen) 05/14/2017 11:39 AM CDT 05/14/2017 12:19 PM CDT Charlie Rockwell MD LAB BLOOD ORDERABLES Ashley l Result Performing Organization Address City/[facility] Co de Phone Number [facility] [place] [address] * (ABNORMAL) Erythrocyte sedimentation rate (05/14/2017 11:39 AM CDT) Erythrocyte sedimentation rate 46(H) 0 - 35 mm/H [facility] Blood specimen (specimen) 05/14/2017 11:39 AM CDT 05/14/2017 12:19 PM CDT Charlie Rockwell MD LAB BLOOD ORDERABLES Ashley l Result Performing Organization Address [facility] Co de Phone Number [facility] [address] * DISCHARGE LABORATORY CUMULATIVE REPORT (05/14/2017 12:00 AM CDT) Narrative 05/14/2017 12:00 AM CDT Ordered by an unspecified provider. Historical Provider LAB BLOOD ORDERABLES Ashley l Result documented in this encounter Visit Diagnoses Not on filedocumented in this encounter Care Teams Culture Room Worker Relationship Specialty Start Date End Date Willy Cummings MD [address] [place] [address] PCP - General 05/14/17 05/14/17 documented as of this encounter
--- OUTSIDE RECORDS SUMMARY | 2024-10-31 03:52 | XMS_ITS | Encounter Summary ---
Author Organization [facility] Address [address] [place] [address] Phone Care Team Providers Care Preflight Mechanic Name Role Phone Willy Cummings MD Primary Care Provider +1- [phone] Encounter Details Date Type Department Care Team (Late st Contact Info) Description 06/09/2019 Telephone [facility] Movement Disorders [address] [place] [phone] Rodolfo Mantilla MD [address] [place], [place] [id number] Social History Tobacco Use Types Packs/Day Years Used Date Smoking Tobacco: Former Smokeless Tobacco: Never Alcohol Use Standard Drinks/Week Comments Yes 1 (1 standard drink = 0.6 oz pur e alcohol) Comments Unknown Sex and Gender Information Value Date Recorded Sex Assigned at Not on file Legal Sex Female 1:04 AM HEALTH PRACTICE MANAGER Gender Identity Not on file Sexual Orientation Not on file Occupation Industry Job Start Date Job End Date retired Not on file Not on file Not on file documented as of this encounter Miscellaneous Notes * Telephone Encounter - Sarah Breaux BSN - 06/23/2019 10:47 AM CDT I spoke with Olga and reviewed the instructions as below for domperidone. She understood. 10 mg tid, first dose taken 30-60 min before carbi/levo, other 2 doses taken with the carbi/levo. * Telephone Encounter - Lori Olivares - 06/23/2019 10:42 AM CDT Pt states she has received her new medication and is unsure what to do. * Telephone Encounter - Neyda Yang CMA - 06/10/2019 3:13 PM CDT Has been ordered and will be faxed over to pharmacy. Neyda * Telephone Encounter - Polina Alcantara RN - 06/09/2019 1:51 PM CDT 06/10 at 1234p Called and spoke with her. She misti wait our all to get the domperidone set up. Whenit arrives she will call back to review the instructions. The diarrhea has subsided so she will continue current duloxetine dose. Hi Admin Team- Would someone please help her get set up for the domperidone? instructions as below. Thanks nupur 06/09 at 1:51p Lm asking her to call back and will leave on task list./dlk * Telephone Encounter - Shruthi Rivero NP - 06/09/2019 12:33 PM CDT Okay: Yes, duloxetine could cause diarrhea (though this usually abates in a week or two). She failed citalopram (didn't really think it helped anything for mood or anxiety). Options would include: Stop duloxetine. Start mirtazapine (if sleep is an issue as long as she as not already pretty big weight roy) or try bupropion instead. Or she could see if the diarrhea abates on its own. Given the more obvious response to levodopa, I would indeed try the domperidone for her nausea so that we are able to push up the levodopa dose, 10 mg tid, first dose taken 30-60 min before carbi/levo, other 2 doses taken with the carbi/levo. Pati, could you call her to set this up? Thanks all, shruthi * Telephone Encounter - AnaijebPolina RN - 06/09/2019 12:18 PM CDT 06/09 at 1218p I called and spoke with her. She titrated up to 2 1/2 tab CL tid last weekend, started having repeated emesis, diarrhea and went to ED, also dx with a UTI. She stopped CL for a few daysand developed hand and leg cramping and discomfort, symmetrical. This stopped when she went back onCL at 2 tabs tid. She thought that perhaps walking improved some family noticed more benefit than she did with resuming CL. We discussed that diarrhea would be unlikely (more likely viral infection) with CL but I would ask [facility] about the duloxetine as a possible cause. No change in mood/anxiety to date but she had a lot of sweating now. She completed abx for UTI but diarrhea was present prior to starting the abx. She was willing to try domperidone if [facility] thought it would be beneficial. I gave option of eitehr 1 1/2 (no SE) or 2 tabs CL tid for now./nupur Hawkins- Please let me know thoughts on this. 1. Carbidopa/levodopa: Try to push slowly up to 3 tabs tid. If nausea is a bigger issue, she will let us know and we will order domperidone. 2. Taper and stop citalopram, start duloxetine as directed. 3. Continue intensive exercise. 4. Gave info on [employer] youtube channel. 5. May still consider lumbardrain depending on response to CD/LD. The most likely diagnosis at this time [...] LP/drain and we discussed this again today. ?? * Telephone Encounter - Neyda Yang CMA - 06/09/2019 11:04 AM CDT MU Pt is calling about medication concerns. She can be called back at [phone] Neyda documented in this encounter Plan of Treatment [...] of Sinemet (3 tabs per day total) 9 added in this encounter Care Teams Preflight Mechanic Relationship Specialty Start Date End Date Willy Cummings MD [address] [place] [address] PCP - General 08/06/17 12/20/19 documented as of this encounter
--- OUTSIDE RECORDS SUMMARY | 2024-10-31 03:52 | XMS_ITS | Encounter Summary ---
Author Organization [facility] Healthcare Address [address] [place] [address] Care Team Providers Care Patient Service Specialist Name Role Phone Miscellaneous, Not In File Primary Care Provider Unavailable Encounter Details Date Type Department Care Team ([facility] st Contact Info) Description 05/12/2017 6:04 PM CDT - 05/12/2017 11:38 PM CDT Emergency [facility] Emergency Department [address] [place] [address] Glenis Davison MD [address] [place] [address] Discharge Disposition: Discharge to home or self care Social History Tobacco Use Types Packs/Day Years Used Date Smoking Tobacco: Never Comments Unknown Sex and Gender Information Value Date Recorded Sex Assigned at Not on file 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 Sex 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 Gender Identity Not on file Sexual [...] Procedure Name Priority Date/Time Associated Diagnosis Comments EGFR STAT 05/12/2017 8:04 PM CDT DIFFERENTIAL AUTO STAT 05/12/2017 8:0 4 PM CDT CBC WITH AUTO DIFFERENTIAL STAT 05/12/2017 8:04 PM CDT MANUAL DIFFERENTIAL STAT 05/12/2017 8 :04 PM CDT APTT STAT 05/12/2017 8:04 PM CDT PROTIME-INR STAT 05/12/2017 8:04 PM CDT COMPREHENSIVE METABOLIC PANEL STAT 05/12/2017 8:04 PM CDT DISCHARGE LABORATORY CUMULATIVE REPORT 05/12/2017 12:00 AM CDT documented in this encounter Results * (ABNORMAL) Manual Differential (05/12/2017 8:04 PM CDT) Platelet estimate Adequate [facility] ([place]) Large platelets Present(A) [facility] ([place]) Elliptocytes 1+(A) [facility] ([place]) RBC morphology Consistent with RBC Indicies [facility] ([place]) Platelet clumping Present(A) [facility] ([place]) Blood specimen (specimen) 05/12/2017 8:04 PM CDT 05/12/2017 8:10 PM CDT us Glenis Davison MD LAB BLOOD ORDERABLE S Final Result [facility] ([place]) 1 [facility] Department [place] [address] * Differential, auto (05/12/2017 8:04 PM CDT) Neutrophil pct 63.6 44.0 - 80.0 % [facility] ([place]) Imm gran pct 0.5 0.0 - 1.0 % [facility] ([place]) Lymphocyte pct 23.0 13.0 - 44.0 % [facility] ([place]) Monocyte pct 6.8 2.0 - 11.0 % [facility] ([place]) Eosinophil pct 5.4 0.0 - 6.0 % [facility] ([place]) Basophil pct 0.7 0.0 - 3.0 % [facility] ([place]) Neutrophil abs 2.71 1.60 - 7.00 K/cumm [facility] ([place]) Imm gran abs 0.02 0.00 - 0.20 K/cumm [facility] ([place]) Lymphocyte abs 0.98 0.50 - 4.30 K/cumm [facility] ([place]) Monocyte abs 0.29 0.10 - 1.00 K/cumm [facility] ([place]) Eosinophil abs 0.23 0.00 - 0.60 K/cumm [facility] ([place]) Basophil abs 0.03 0.00 - 0.30 K/cumm [facility] ([place]) Blood specimen (specimen) 05/12/2017 8:04 PM CDT 05/12/2017 8:10 PM CDT us Glenis Davison MD LAB BLOOD ORDERABLE S Final Result [facility] 1 [facility] Department of Laboratories [place] [id number] * (ABNORMAL) CBC with auto differential (05/12/2017 8:04 PM CDT) WBC 4.26 3.80 - 9.80 K/cumm [facility] ([place]) RBC 3.75(L) 3.90 - 5.00 M/cumm [facility] ([place]) Hgb 7.7(L) 12.1 - 15.1 g/dL [facility] ([place]) Hct 24.7(L) 36.1 - 44.3 % [facility] ([place]) MCV 65.9(L) 80.0 - 100.0 fL [facility] ([place]) MCH 20.5(L) 26.7 - 33.7 pg [facility] ([place]) MCHC 31.2(L) 32.7 - 36.0 g/dL [facility] ([place]) RDW CV 20.3(H) 11.5 - 14.6 % [facility] ([place]) Plt 170 140 - 440 K/cumm [facility] ([place]) MPV 10.0 8.0 - 12.0 fL [facility] ([place]) NRBC 0.0 0.0 - 0.0 % [facility] ([place]) NRBC abs 0.00 0.00 - 0.00 K/cumm [facility] ([place]) Blood specimen (specimen) 05/12/2017 8:04 PM CDT 05/12/2017 8:10 PM CDT us Glenis Davison MD LAB BLOOD ORDERABLE S Final Result [facility] ([place]) 1 [facility] Department [place] [address] * eGFR (05/12/2017 8:04 PM CDT) eGFR >60 mL/min/1.7 3 m2 [facility] ([place]) Comment: Interpretive Data Reference Interval Normal ?>/= 90 mL/min/1.73m2 Mildly decreased* ? 60 - 89 mL/min/1.73m2 Mildly to moderately decreased ?45 - 59 mL/min/1.73m2 Moderately to severely decreased ??30 - 44 mL/min/1.73m2 Severely decreased ?15 - 29 mL/min/1.73m2 Kidney Failure ?< 15 ??mL/min/1.73m2 *Relative to young adult level If -Libyan multiply value by 1.16. Estimated glomerular filtration rate is determined by the CKD-EPI equation recommended by the National Kidney Foundation (KDIGO 2012 Clinical Practice Guideline for the Evaluation and Management of Chronic Kidney Disease. Kidney Intnl Suppl Oct 2012;3:1). The CKD-EPI equation should not be used for patients with unstable renal function and has not been validated in children and those over 70. Current interpretive data was last reviewed 2016. Blood specimen (specimen) 05/12/2017 8:04 PM CDT 05/12/2017 8:10 PM CDT us Glenis Davison MD LAB BLOOD ORDERABLE S Final Result [facility] ([place]) 1 [facility] Department [place] [address] * (ABNORMAL) Comprehensive metabolic panel (05/12/2017 8:04 PM CDT) Sodium 133(L) 135 - 145 mmol/L [facility] ([place]) Potassium 4.1 3.5 - 5.1 mmol/L [facility] ([place]) Chloride 96(L) 97 - 110 mmol/L [facility] ([place]) CO2 27 22 - 32 mmol/L [facility] ([place]) Anion gap 10 8 - 16 mmol/L [facility] ([place]) Glucose 117 70 - 199 mg/dL [facility] ([place]) Comment: Interpretive Data Note:The glucose is assumed non fasting Fastin-99 mg/dL Random: ??70-199 mg/dL Either a fasting glucose > 126 mg/dL or a random glucose > 200 mg/dL plus symptoms is diagnostic of diabetes when confirmed on another day. Fasting values > 100 mg/dL but < 125 mg/dL are diagnostic of impaired fasting glucose. Current interpretive data was last revised on 2014. BUN 16.5 8.0 - 25.0 mg/dL [facility] ([place]) Creatinine 0.92 0.60 - 1.10 mg/dL [facility] ([place]) BUN/creat ratio 18 10 - 20 [facility] ([place]) Calcium 8.5(L) 8.6 - 10.2 mg/dL [facility] ([place]) Protein, sr 6.5 6.0 - 8.4 g/dL [facility] ([place]) Albumin 3.3(L) 3.6 - 5.0 g/dL [facility] ([place]) Alk phos 107 40 - 130 Units/L [facility] ([place]) ALT 9 5 - 45 Units/L [facility] ([place]) AST 13 10 - 40 Units/L [facility] ([place]) Bilirubin, total 0.4 <=1.2 mg/dL [facility] ([place]) Blood specimen (specimen) 05/12/2017 8:04 PM CDT 05/12/2017 8:10 PM CDT Glenis Davison MD LAB BLOOD ORDERABLE S Final Result Performing Organization Address City/[facility]/ZIP Co de Phone Number [facility] ([place]) 1 [facility] [place] [address] * (ABNORMAL) Protime-INR (05/12/2017 8:04 PM CDT) PT 13.6(H) 9.5 - 12.5 sec [facility] ([place]) INR 1.19 0.90 - 1.20 [facility] ([place]) Comment: Interpretive Data Recommended ranges for Protime INR: 2.0 - 3.0 Most indications for Warfarin therapy (e.g. Treatment of DVT, PE, bioprosthetic valve replacement, prophylaxis venous thrombosis, atrial fibrillation). 2.5 - 3.5 Mechanical mitral valve or dual mechanical mitral and Aortic valve replacement. Current Interpretive Data was last revised on 2015. Blood specimen (specimen) 05/12/2017 8:04 PM CDT 05/12/2017 8:10 PM CDT Glenis Davison MD LAB BLOOD ORDERABLE S Final Result Performing Organization Address City/[facility]/ZIP Co de Phone Number [facility] ([place]) 1 [facility] [place] [address] * aPTT (05/12/2017 8:04 PM CDT) aPTT 31.4 25.0 - 37.0 sec [facility] ([place]) Blood specimen (specimen) 05/12/2017 8:04 PM CDT 05/12/2017 8:10 PM CDT us Glenis Davison MD LAB BLOOD ORDERABLE S Final Result [facility] ([place]) 1 [facility] Department [place] [address] * DISCHARGE LABORATORY CUMULATIVE REPORT (05/12/2017 12:00 AM CDT) Narrative 05/12/2017 12:00 AM CDT Ordered by an unspecified provider. us Historical Provider LAB BLOOD ORDERABLES Ashley l Result documented in this encounter Visit Diagnoses Not on filedocumented in this encounter Care Teams Patient Service Specialist Relationship Specialty Start Date End Date Miscellaneous, Not In File PCP - General 05/12/17 documented as of this encounter
--- OUTSIDE RECORDS SUMMARY | 2024-10-31 03:52 | XMS_ITS | Encounter Summary ---
Author Organization [facility] Address [address] [place] [address] Phone Care Team Providers Care Manufacturing Plant Technician Name Role Phone Willy Cummings MD Primary Care Provider +1- [phone] Encounter Details Date Type Department Care Team (Late st Contact Info) Description 10/08/2018 Telephone [facility] Neurosurgery [address] [facility] 6th [place] [address] [place] [address] Renea Collado CMA Social History Tobacco Use Types Packs/Day Years Used Date Smoking Tobacco: Never Smokeless Tobacco: Never Alcohol Use Standard Drinks/Week Comments Yes 1 (1 standard drink = 0.6 oz pur e alcohol) Comments Unknown Sex and Gender Information Value Date Recorded Sex Assigned at Not on file Legal Sex Female 1:04 AM RN ORTHOPAEDIC Gender Identity Not on file Sexual Orientation Not on file documented as of this encounter Miscellaneous Notes * Telephone Encounter - Renea Collado MA - 10/08/2018 11:11 AM CST I called pt and LVM to confirm 10/12/18 appointment and to remind her to bring the CD of imaging tothe appointment. ORTHOPAEDIC documented in this encounter Plan of Treatment Not on file documented as of this encounter Visit Diagnoses Not on filedocumented in this encounter Care Teams Manufacturing Plant Technician Relationship Specialty Start Date End Date Willy Cummings MD [address] [place] [address] PCP - General 08/06/17 12/20/19 documented as of this encounter
--- OUTSIDE RECORDS SUMMARY | 2024-10-31 03:52 | XMS_ITS | Encounter Summary ---
Author Organization [facility] Healthcare Address [address] [place] [address] Care Team Providers Care Dietary Tech Name Role Phone Willy Cummings MD Primary Care Provider +1- [phone] Encounter Details Date Type Department Care Team (Late st Contact Info) Description 08/06/2017 9:33 AM CDT - 08/06/2017 11:59 PM T Hospital Encounter [facility] INTERIM [phone] Yousif Etienne MD [address] [place] [address] Discharge Disposition: Discharge to home or self care Social History Tobacco Use Types Packs/Day Years Used Date Smoking Tobacco: Never Comments Unknown Sex and Gender Information Value Date Recorded Sex Assigned at Not on file Legal Sex Female 1:04 AM MEDICAL LABORATORY ASSISTANT Gender Identity Not on file Sexual [...] XR KNEE 1 OR 2 VW Routine 08/06/2017 3:0 0 PM CDT documented in this encounter Results * XR Knee 1 Or 2 VW (08/06/2017 3:00 PM CDT) Anatomical Region Laterality Modality N/A Radiographic Zhane ging 08/06/2017 3:00 PM CDT Narrative 08/06/2017 3:46 PM CDT KELLY VERDUGO M.D. DESHAWN SHEIKH M.D. FINAL REPORT The radiology attending physician has personally reviewed this study, and has reviewed and/or edited this written report and agrees with it. 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 FINDINGS: 2 views of the right knee with 3 exposures are submitted for interpretation with comparison to the prior study dated 06/22/2017. There is an unchanged, constrained right total knee arthroplasty in near-anatomic alignment. ??There is no evidence of fracture. ??There is been interval removal of a drain and cutaneous yuan. ??There is no apparent knee effusion. IMPRESSION: ??1. 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 Electronically signed by: Kelly Verdugo M.D. Requested By: YOUSIF ETIENNE M.D. Dictated By: ?? DESHAWN SHEIKH M.D. ??on Aug 06 2017 10:44A This document has been electronically signed by: KELLY VERDUGO M.D. on Aug 06 2017 10:44A [id number] VERDUGO M.D. DESHAWN SHEIKH M.D. FINAL REPORT The radiology attending physician has personally reviewed this study, and has reviewed and/or edited this written report and agrees with it. Attending: ??CHANDAN, ??YOUSIF Requesting: ??CHANDAN, ??YOUSIF Requesting Fax: ?? Attending Fax: ?? Attending ID: ??[id number] Requesting ID: ??[id number] Report To 1 ID: ??[id number] ? Report To 1 Name: ??, ?? Report To 1 FAX: ?? NextGen Order #: ?? Procedure Note Miscellaneous, Not In File - 08/06/2017 KELLY VERDUGO M.D. DESHAWN SHEIKH M.D. FINAL REPORT The radiology attending physician has personally reviewed this study, and has reviewed and/or edited this written report and agrees with it. 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 FINDINGS: 2 views of the right knee with 3 exposures are submitted for interpretation with comparison to the prior study dated 06/22/2017. There is an unchanged, constrained right total knee arthroplasty in near-anatomic alignment. There is no evidence of fracture. There is been interval removal of a drain and cutaneous yuan. There is no apparent knee effusion. IMPRESSION: 1. 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 Electronically signed by: Kelly Verdugo M.D. Requested By: YOUSIF ETIENNE M.D. Dictated By: DESHAWN SHEIKH M.D. on Aug 06 2017 10:44A This document has been electronically signed by: KELLY VERDUGO M.D. on Aug 06 2017 10:44A [id number] VERDUGO, M.D. DESHAWN MARROCCO, M.D. FINAL REPORT The radiology attending physician has personally reviewed this study, and has reviewed and/or edited this written report and agrees with it. Attending: YOUSIF ETIENNE Requesting: YOUSIF ETIENNE Requesting Fax: Attending Fax: Attending ID: [id number] Requesting ID: [id number] Report To 1 ID: [id number] Report To 1 Name: , Report To 1 FAX: NextGen Order #: Yousif Etienne MD IMG XR PROCEDURES Fi nal Result documented in this encounter Visit Diagnoses Not on filedocumented in this encounter Care Teams Dietary Tech Relationship Specialty Start Date End Date Willy Cummings MD [address] [place] [address] PCP - General 08/06/17 12/20/19 documented as of this encounter
--- OUTSIDE RECORDS SUMMARY | 2024-10-31 03:53 | XMS_ITS | Encounter Summary ---
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; Other [facility] (current) drug therapy Social History Tobacco Use Types Packs/Day Years Used Date Smoking Tobacco: Never Comments Unknown Sex and Gender Information Value Date Recorded Sex Assigned at Not on file Legal Sex Female 1:04 AM QUALITY CONTROL SPECIALIST Gender Identity Not on file Sexual Orientation Not on file documented as of this encounter Medications at Time of Discharge gabapentin (NEURONTIN) 300 mg capsule TAKE ONE CAPSULE 3 TIMES A DAY 10/13/2013 10/12/2018 documented as of this encounter Plan of Treatment Not on file documented as of this encounter Visit Diagnoses Diagnosis Acute noninfective otitis externa of both ears Personal history of nicotine dependence 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
--- OUTSIDE RECORDS SUMMARY | 2024-10-31 03:53 | XMS_ITS | Encounter Summary ---
Author Organization 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 Name Role Phone Brittny Salazar MD Primary Care Provider [phone] Encounter Details Date Type Department Care Team (Latest Contact Info) Description 05/06/2017 10:55 AM CDT - 05/07/2017 7:04 PM CDT Hospital Encounter [facility] [address] [place] [address] Angelita Cox MD [address] [place] [id number] Binu Burgos MD [address] [place], [place] [id number] Discharge Disposition: Discharge to home or self care Social History Tobacco Use Types Packs/Day Years Used Date Smoking Tobacco: Never Comments Unknown Sex and Gender Information Value Date Recorded Sex Assigned at Not on file 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 Admit Date: 05/05/2017 Dict.: Binu Burgos M.D. Disch. Date: 05/07/2017 Patient is a 71-year-old lady with history of a lower extremity DVT and anticoagulation. Patient also had presented to [facility] with right knee prosthetic infection which was removal and was done by Dr. Blanco. Patient is being followed up by [facility] for that reason. She also had Infectious Disease consultation. Patient was admitted for significant anemia. She was transfused. Patient had a GI consultation done with Dr. Mckeon whose opinion was patient could be managed as outpatient. After transfusion she also had coagulopathy secondary to being on warfarin. Patient was continued on Rocephin while being admitted here. Case was discussed with Orthopedics, Dr. Blanco, and they considered her okay to be discharged as well as follow up with the outpatient clinic. DISCHARGE DIAGNOSES 1. Acute on chronic anemia with positive stool guaiac. GI consultation with Dr. Mckeon. Warfarin is on hold. This is discussed in detail with the patient and family at bedside. 2. 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 Patient continues on IV Rocephin. Will follow up with Infectious Disease at [facility] who has scheduled continued appointment with the patient. IV antibiotics as per Infectious Disease. Also patient and family are warned to maintain regular followup with orthopedic doctor, Dr. Blanco. 3. Recent lower extremity. Unable to anticoagulate. Patient has a filter in place. 4. Hypertension. 5. Hypothyroidism. FURTHER HOSPITAL COURSE Case was discussed in detail. Patient was treated for pain management while over here. While admitted she was administered Dilaudid. Patient was also on Lopressor, Protonix, Rocephin, and levothyroxine. FOLLOWUP RECOMMENDED Patient and family have been strongly recommended to maintain followup with Infectious Disease as well as Orthopedics for continued pain as well as joint infection. Consultation with Infectious Disease is recommended as well. This patient already has seen Infectious Disease at [facility]. Will consult with him regarding IV antibiotics upon discharge. Patient wishes to have home care. Recommend follow with primary care in 4 days, Infectious Disease, and Orthopedics in 2 days. ACTIVITY Bedrest. DIET Low cholesterol. FOLLOWUP Labs as per primary care physician and Infectious Disease and Ortho. Recommend CBC in 4 days with the primary care physician as well. CONDITION ON DISCHARGE Improved. However, patient continues to have knee pain as well as joint infection as per Orthopedics. Again family has been explained and discussed regard to necessary arrangements for followup. Electronically Authenticated by: Binu Burgos MD On 05/10/2017 05:45 PM CDT Binu Burgos M.D. /ams TD: 05/08/2017 08:39 documented in this encounter Medications at Time of Discharge gabapentin (NEURONTIN) 300 mg capsule TAKE ONE CAPSULE 3 TIMES A DAY 10/13/2013 10/12/2018 documented as of this encounter Discharge Disposition Disposition Code Departure Means Destination Discharge to home or self care documented in this encounter H&P Notes * Miscellaneous, Not In File - 05/05/2017 5:00 AM CDT HISTORY AND PHYSICAL Patient: JONNEI BANSAL Account: [id number] Room No: 3624-01 : 1945 Patient Type: [facility] Attend.: Angelita Cox M.D. Admit Date: 05/05/2017 Dict.: Angelita Cox M.D. Disch. Date: CHIEF COMPLAINT Abnormal labs. HPI This is a 71-year-old female with history of recent right lower extremity DVT on anticoagulation, diabetes, hypertension, bilateral total knee arthroplasty with recent right knee I and D. She was recently at [facility] and at that time was treated for right knee prosthetic infection. Started on IV antibiotic course and also had a complicated course of right lower extremity DVT and was discharged on Coumadin. Patient states she has been doing fine and was just discharged from a fdc yesterday. However on not getting home and her labs were checked and she was found to be anemic and advised to report to the emergency room. She states she has been feeling fine. Denied shortness of breath or chest pain, feeling fatigued, dizzy, lightheaded, also denies dizziness. denies nausea, vomiting, abdominal pain, and pain worse with eating. Also denies noted melena or bright red blood per rectum. She states she had a colonoscopy several years ago and however does not remember the results. REVIEW OF SYSTEMS Pertinent positives and all other review of systems are negative. The patient denies back pain. PAST MEDICAL HISTORY Diabetes, hypertension, hypothyroidism, right lower extremity DVT, temporary IVC filter placement in March, right infected knee arthroplasty status post explantation of hardware, incision and drainage, morbid obesity. SOCIAL HISTORY Denies tobacco use. FAMILY HISTORY Arthritis. ALLERGIES SULFUR AND CELEBREX. HOME MEDICATIONS Include: 1. IV Rocephin daily. 2. Hydrochlorothiazide. 3. Hydroxyzine. 4. Losartan. 5. Metoprolol. 6. MiraLAX. 7. Oxycodone. 8. Lyrica, 9. Synthroid. 10. Lipitor. 11. Tylenol. 12. Celexa. Vitals: Temp of 97.9, pulse 76, respiratory rate 18, and 93% on room air. Blood pressure 136/61. Patient is awake, alert, and in no acute distress. HEENT: Pupils are equal, moist mucous membranes. Heart Exam: Regular rate. Normal S1, S2. Lungs: Sounds are clear anteriorly. Abdomen: Soft, nondistended, and nontender. Extremities: Appropriately tender along the right knee, has an immobilizer, has intact sensation, trace lower extremity edema. Psychiatric: Normal affect and mood. LABS Sodium 134, potassium 4.5. Renal function and other electrolytes are within normal limits. Calcium of 8.4. Hemoglobin of 6.2, hematocrit of 21, platelet and white count are within normal limits. INR of 2.84. Stool guaiac is positive. ASSESSMENT AND PLAN This is a 71-year-old female admitted for acute on chronic anemia with a positive stool guaiac. She has a history of right lower extremity DVT and is on therapeutic anticoagulation. Infected right knee arthroplasty status post recent explantation and I and D, hypertension and hypothyroidism. PLAN 1. Acute on chronic anemia with positive stool guaiac. On IV Protonix, patient was transfused 1 unit of packed red blood cells. GI consult in the morning. Warfarin is on hold at this time. 2. Recent infected right knee prosthesis, status post I and D, hardware explantation. The patient is on IV Rocephin. She has scheduled appointments with ortho and ID at [facility]. These appointments will need to be rescheduled. She is nonweightbearing. 3. Recent recent right lower extremity DVT. Warfarin is on hold due to anemia. She had a filter recently placed in March. 4. Hypertension. While n.p.o. patient will be on IV Lopressor with parameters to hold. 5. Hypothyroidism on IV Synthroid. 6. Prophylaxis. Protonix and SCD to the left lower extremity. 7. Length anticipated greater than 2 midnights. Electronically Authenticated by: Angelita Cox MD On 05/07/2017 06:51 AM CDT Yolanda Quinn/kanu TD: 05/06/2017 06:22 documented in this encounter Consult Notes * Miscellaneous, Not In File - 05/06/2017 5:00 AM CDT CONSULTATION REPORT Patient: JONNIE BANSAL Service Date: 05/06/2017 Account: [id number] Room No: 3624-01 : 1945 Patient Type: IP Attend.: Binu Burgos M.D. Admit Date: 05/05/2017 Consult: Alivia Mckeon M.D. Disch. Date: 05/07/2017 CONSULTING PROVIDER Alivia Mckeon MD REASON FOR CONSULTATION Anemia and occult blood in the stool. The patient is a 71-year-old white female who presented to the emergency room yesterday for severe anemia after routine blood testing in her rehab unit. It was noted yesterday that she has normal iron studies. Her INR was 2.8. She had stool occult blood testing in the emergency room which was positive, so GI consultation was requested. The patient herself usually has 1 bowel movement every couple days. 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 Her baseline hemoglobin is around 9 with low MCV level. The patient had colonoscopy for screening about 5 years ago. She has no abdominal pain. No nausea. No vomiting. PAST MEDICAL HISTORY 1. Obesity. 2. Recent knee surgery complicated by septic knee joint. 3. History of DVT, on Coumadin. 4. Known history of diverticulosis and last colonoscopy was in 2011 and it was normal. 5. Diabetes. 6. Hypertension. 7. History of bilateral total knee replacement surgeries. SOCIAL AND FAMILY HISTORY At this point the patient was in the rehab unit after this big knee surgery at [facility]. Note that the patient received blood transfusion at [facility]. REVIEW OF SYSTEMS The patient's main complaint is pain in the knee. The patient received 1 unit of blood transfusion today. She has no chest pain. No abdominal pain. She is always constipated. No nausea. No vomiting. No hematemesis. The patient herself does not see any blood in the stool. EXAMINATION Patient awake, alert, oriented, well appearing. Patient has obese build. Eyes: Noted with no jaundice. Mild pale conjunctivae noted. ENT: No mouth ulcers. Lungs: Clear to auscultation. Abdomen: Obese and soft but not tender with no distention. Bowel sounds were normal. Her right leg is in a cast. Left leg noted with no swelling. LABS AND X-RAYS Stool occult blood testing was positive from the emergency room. Iron studies showed normal iron levels and iron saturation but low iron-binding capacity. After blood transfusion, hemoglobin was 7. IMPRESSION Anemia. The anemia is chronic and microcytic, and likely her main factor for the anemia is understanding thalassemia minor. This recent decline is likely secondary to the acute illness and bone marrow suppression. There is occult blood in the stool. The patient had previous screening colonoscopy. There is no overt bleeding. She may have gastritis ulceration, but there is definitely no sign of active bleeding at this point. RECOMMENDATION 1. Check iron level again tomorrow, folate, B12 and zinc and replace as needed. 2. Otherwise, I think the patient will maintain a hemoglobin between 7 and 8, and that should be her baseline without need for further transfusion. 3. I will repeat blood tests next week. 4. No need for endoscopic evaluation at this point, especially considering the patient's elevated INR and high risk of DVT and pulmonary embolism. 5. Endoscopy should only be considered in this situation with signs of active bleeding such as melena or hematochezia. 6. If the hemoglobin level tomorrow is stable, then the patient can be safely discharged home. I appreciate the opportunity to participate in the care of . Jonnie Bansal. Electronically Authenticated and Edited by: Alivia Mckeon MD On 06/03/2017 03:48 PM CDT Alivia Mckeon M.D. MA/[facility] TD: 05/07/2017 08:10 CC: Willy Cummings MD documented in this encounter Plan of Treatment Not on file documented as of this encounter Procedures Procedure Name Priority Date/Time Associated Diagnosis Comments XR KNEE 4+ VW Routine 05/07/2017 10:11 PM CDT DIFFERENTIAL AUTO Routine 05/07/2017 5:5 5 AM CDT IRON PROFILE W/ IBC Routine 05/07/2017 5 :55 AM CDT CBC WITH AUTO DIFFERENTIAL Routine 05/07/2017 5:55 AM CDT ZINC Routine 05/07/2017 5:55 AM CDT PROTIME-INR Routine 05/07/2017 5:55 AM CDT FOLATE Routine 05/07/2017 5:55 AM CDT FERRITIN Routine 05/07/2017 5:55 AM CDT VITAMIN B12 Routine 05/07/2017 5:55 AM CDT DISCHARGE LABORATORY CUMULATIVE REPORT 05/07/2017 12:00 AM CDT HEMOGLOBIN Routine 05/06/2017 2:40 PM CDT HEMATOCRIT Routine 05/06/2017 2:40 PM CDT HEMOGLOBIN Routine 05/06/2017 9:35 AM CDT HEMATOCRIT Routine 05/06/2017 9:35 AM CDT CLINICAL PATHOLOGY REPORT Routine 05/06/2017 8:35 AM CDT EGFR Routine 05/06/2017 4:45 AM CDT DIFFERENTIAL AUTO Routine 05/06/2017 4:4 5 AM CDT CBC WITH AUTO DIFFERENTIAL Routine 05/06/2017 4:45 AM CDT HEPATIC FUNCTION PANEL Routine 7 4:45 AM CDT BASIC METABOLIC PANEL Routine 05/06/2017 4:45 AM CDT PROTIME-INR Routine 05/06/2017 3:18 AM CDT HEMOGLOBIN Routine 05/06/2017 3:18 AM CDT HEMATOCRIT Routine 05/06/2017 3:18 AM CDT INFECTION PREVENTION MRSA ONLY (STAPHYLOCOCCUS AUREUS) CULTURE Routine 05/06/2017 12:05 AM CDT CLINICAL PATHOLOGY REPORT 05/06/2017 12:00 AM CDT LR RBC STAT 05/05/2017 9:16 PM CDT HEMOGLOBIN Routine 05/05/2017 8:25 PM CDT HEMATOCRIT Routine 05/05/2017 8:25 PM CDT OCCULT BLOOD, FECAL (FIT) STAT 05/05/2017 7:12 PM CDT EGFR STAT 05/05/2017 5:55 PM CDT DIFFERENTIAL AUTO STAT 05/05/2017 5:5 5 PM CDT IRON PROFILE W/ IBC STAT 05/05/2017 5 :55 PM CDT CBC WITH AUTO DIFFERENTIAL STAT 05/05/2017 5:55 PM CDT ANTIBODY IDENTIFICATION STAT 05/05/20 5:55 PM CDT ABO/RH STAT 05/05/2017 5:55 PM CDT APTT STAT 05/05/2017 5:55 PM CDT PROTIME-INR STAT 05/05/2017 5:55 PM CDT ANTIBODY SCREEN STAT 05/05/2017 5:55 PM CDT BASIC METABOLIC PANEL STAT 05/05/2017 5:55 PM CDT documented in this encounter Results * XR Knee 4+ VW (05/07/2017 10:11 PM CDT) Anatomical Region Laterality Modality N/A Radiographic Zhane ging 05/07/2017 10:1 1 PM CDT Narrative 05/07/2017 10:11 PM CDT XR Knee Min 4 Views R ??[id number] ??Acc#: ??[id number] DATE OF EXAM: ??May 07 2017 ?? XR Knee Min 4 Views R ??[id number] HISTORY: Knee pain. ??Recent removal of left knee prosthesis with placement of an antibiotic spacer.. COMPARISON: Dating back to 04/15/2017. Views: 4 FINDINGS: There is no acute fracture or dislocation seen. ??The left knee prosthesis seen on 04/15/2017 has been removed. ??There is an antibiotic spacer between the proximal tibia and distal femur. ??No significant joint effusion is seen. ??No focal air collections are visualized. ??There is some degree of image compromised because of an external fixating device that is most notable in the lateral radiograph. IMPRESSION: ANTIBIOTIC SPACER BETWEEN THE PROXIMAL TIBIA AND DISTAL FEMUR SIMILAR TO THE STUDY FROM 04/21/2017. ??THERE IS NO FRACTURE, DISLOCATION OR SIGNIFICANT JOINT EFFUSION IDENTIFIED. Electronically signed by: Shamir Aguirre M.D. Interpreting Physician: ??SHAMIR AGUIRRE M.D. ??Read on: ??May 07 2017 ??5:15P Transcribed by: ??PSC ??On: May 07 2017 ??5:12P Approved Electronically by: ??MELISSA Guerrero, SHAMIR ??on: ??May 07 2017 ??5:12P Ordering DR: DR BINU BURGOS Attending DR: DR BINU BURGOS Attending: ??DR BINU BURGOS Requesting: ??DR IBNU BURGOS Requesting Fax: ??-- Attending Fax: ??-- Attending ID: ??[id number] Requesting ID: ??[id number] Report To 1 ID: ??[id number] Report To 1 Name: ??DR JEREMIAH RICK Report To 1 FAX: ??-- NextGen Order #: ?? Procedure Note Miscellaneous, Not In File / Provider, MD Clifford - 05/07/2017 XR Knee Min 4 Views R [id number] Acc#: [id number] DATE OF EXAM: May 07 2017 XR Knee Min 4 Views R [id number] HISTORY: Knee pain. Recent removal of left knee prosthesis with placement of an antibiotic spacer.. COMPARISON: Dating back to 04/15/2017. Views: 4 FINDINGS: There is no acute fracture or dislocation seen. The left knee prosthesis seen on 04/15/2017 has been removed. There is an antibiotic spacer between the proximal tibia and distal femur. No significant joint effusion is seen. No focal air collections are visualized. There is some degree of image compromised because of an external fixating device that is most notable in the lateral radiograph. IMPRESSION: ANTIBIOTIC SPACER BETWEEN THE PROXIMAL TIBIA AND DISTAL FEMUR SIMILAR TO THE STUDY FROM 04/21/2017. THERE IS NO FRACTURE, DISLOCATION OR SIGNIFICANT JOINT EFFUSION IDENTIFIED. Electronically signed by: Shamir Aguirre M.D. Interpreting Physician: SHAMIR AGUIRRE M.D. Read on: May 07 2017 5:15P Transcribed by: PSC On: May 07 2017 5:12P Approved Electronically by: SHAMIR AGUIRRE M.D. on: May 07 2017 5:12P Ordering DR: DR BINU BURGOS Attending DR: DR BINU BURGOS Attending: DR BINU BURGOS Requesting: DR BINU BURGOS Requesting Fax: -- Attending Fax: -- Attending ID: [id number] Requesting ID: [id number] Report To 1 ID: [id number] Report To 1 Name: DR JEREMIAH RICK Report To 1 FAX: -- NextGen Order #: Binu Burgos MD IMG XR PROCEDURES Final Result * Zinc (05/07/2017 5:55 AM CDT) Zinc 0.71 0.66 - 1.10 mcg/mL [facility] (GAVIN) Comment: ADDITIONAL INFORMATION This test was developed and its performance characteristics determined by [facility] in a manner consistent with CLIA requirements. This test has not been cleared or approved by the U.S. Food and Drug Administration. Test Performed by: [place] [address] Blood specimen (specimen) 05/07/2017 5:55 AM CDT 05/07/2017 6:23 AM CDT Binu Burgos MD LAB BLOOD ORDERABLES Final Resul t [facility] ([place]) 1 [facility] of [facility] [place], [place] [id number] * (ABNORMAL) Vitamin B12 (05/07/2017 5:55 AM CDT) Vitamin B12 1,345(H) 180 - 920 pg/mL [facility] ([place]) Comment: Interpretive Data Reference Interval (greater than 1 year of age) Normal: ? 180 - 920 pg/ml Indeterminate: ??145 - 180 pg/ml Deficient: ? <145 pg/ml Current Interpretive Data was last revised on 2016 Blood specimen (specimen) 05/07/2017 5:55 AM CDT 05/07/2017 11:48 AM CDT us Binu Burgos MD LAB BLOOD ORDERABLES Final Resul t Performing Organization Address [facility] de Phone Number [facility] ([place]) 1 [facility] [place] [address] * Folate (05/07/2017 5:55 AM CDT) Folic acid 16.6 >=3.1 ng/mL [facility] ([place]) Comment: Interpretive Data >3 ?Normal 2.5 - 3.0 Indeterminate <2.5 ?Deficient Current interpretive data was last reviewed on 02/18/2016. Blood specimen (specimen) 05/07/2017 5:55 AM CDT 05/07/2017 11:48 AM CDT us Binu Burgos MD LAB BLOOD ORDERABLES Final Resul t Performing Organization Address [facility] de Phone Number [facility] ([place]) 1 [facility] [place] [address] * (ABNORMAL) Ferritin (05/07/2017 5:55 AM CDT) Ferritin 377(H) 15 - 150 ng/mL [facility] ([place]) Blood specimen (specimen) 05/07/2017 5:55 AM CDT 05/07/2017 6:25 AM CDT us Binu Burgos MD LAB BLOOD ORDERABLES Final Resul t Performing Organization Address [facility] de Phone Number [facility] ([place]) 1 [facility] [place] [address] * (ABNORMAL) Iron profile (05/07/2017 5:55 AM CDT) Iron 53 35 - 145 mcg/dL [facility] ([place]) UIBC 141 110 - 350 mcg/dL [facility] ([facility] TIBC 194(L) 220 - 420 mcg/dL [facility] ([place]) Transferrin saturation 27 15 - 50 % [facility] ([place]) Blood specimen (specimen) 05/07/2017 5:55 AM CDT 05/07/2017 6:25 AM CDT Binu Burgos MD LAB BLOOD ORDERABLES Final Resul t Performing Organization Address [facility] Co de Phone Number [facility] ([place]) 1 [facility] [place] [address] * (ABNORMAL) Protime-INR (05/07/2017 5:55 AM CDT) PT 25.5(H) 9.5 - 12.5 sec [facility] ([place]) INR 2.17(H) 0.90 - 1.20 [facility] ([place]) Comment: Interpretive Data Recommended ranges for Protime INR: 2.0 - 3.0 Most indications for Warfarin therapy (e.g. Treatment of DVT, PE, bioprosthetic valve replacement, prophylaxis venous thrombosis, atrial fibrillation). 2.5 - 3.5 Mechanical mitral valve or dual mechanical mitral and Aortic valve replacement. Current Interpretive Data was last revised on 2015. Blood specimen (specimen) 05/07/2017 5:55 AM CDT 05/07/2017 6:23 AM CDT Binu Burgos MD LAB BLOOD ORDERABLES Final Resul t Performing Organization Address [facility] Co de Phone Number [facility] ([place]) 1 [facility] [place] [address] * Differential, auto (05/07/2017 5:55 AM CDT) Neutrophil pct 69.7 44.0 - 80.0 % [facility] ([place]) Imm gran pct 0.6 0.0 - 1.0 % [facility] ([place]) Lymphocyte pct 21.5 13.0 - 44.0 % [facility] ([place]) Monocyte pct 4.3 2.0 - 11.0 % [facility] ([place]) Eosinophil pct 3.7 0.0 - 6.0 % [facility] ([place]) Basophil pct 0.2 0.0 - 3.0 % [facility] ([place]) Neutrophil abs 4.51 1.60 - 7.00 K/cumm [facility] ([place]) Imm gran abs 0.04 0.00 - 0.20 K/cumm [facility] ([place]) Lymphocyte abs 1.39 0.50 - 4.30 K/cumm [facility] ([place]) Monocyte abs 0.28 0.10 - 1.00 K/cumm [facility] ([place]) Eosinophil abs 0.24 0.00 - 0.60 K/cumm [facility] ([place]) Basophil abs 0.01 0.00 - 0.30 K/cumm [facility] ([place]) Blood specimen (specimen) 05/07/2017 5:55 AM CDT 05/07/2017 6:23 AM CDT us Binu Burgos MD LAB BLOOD ORDERABLES Final Resul t [facility] ([place]) 1 [facility] [place] [address] * (ABNORMAL) CBC with auto differential (05/07/2017 5:55 AM CDT) WBC 6.47 3.80 - 9.80 K/cumm [facility] ([place]) RBC 3.66(L) 3.90 - 5.00 M/cumm [facility] ([place]) Hgb 7.7(L) 12.1 - 15.1 g/dL [facility] ([place]) Hct 24.5(L) 36.1 - 44.3 % [facility] ([place]) MCV 66.9(L) 80.0 - 100.0 fL [facility] ([place]) MCH 21.0(L) 26.7 - 33.7 pg [facility] ([place]) MCHC 31.4(L) 32.7 - 36.0 g/dL [facility] ([place]) RDW CV 21.4(H) 11.5 - 14.6 % [facility] ([place]) Plt 152 140 - 440 K/cumm [facility] ([place]) MPV 10.6 8.0 - 12.0 fL [facility] ([place]) NRBC 0.0 0.0 - 0.0 % [facility] ([place]) NRBC abs 0.00 0.00 - 0.00 K/cumm [facility] ([place]) Blood specimen (specimen) 05/07/2017 5:55 AM CDT 05/07/2017 6:23 AM CDT Binu Burgos MD LAB BLOOD ORDERABLES Final Resul t Performing Organization Address City/[facility]/ZIP Co de Phone Number [facility] ([place]) 1 [facility] [address] * DISCHARGE LABORATORY CUMULATIVE REPORT (05/07/2017 12:00 AM CDT) Narrative 05/07/2017 12:00 AM CDT Ordered by an unspecified provider. Clifford Nguyen MD LAB BLOOD ORDERABLES Ashley l Result * (ABNORMAL) Hemoglobin (05/06/2017 2:40 PM CDT) Hgb 7.0(L) 12.1 - 15.1 g/dL [facility] ([place]) Blood specimen (specimen) 05/06/2017 2:40 PM CDT 05/06/2017 2:42 PM CDT Jeremiah Rick Jr., MD LAB BLOOD ORDERABL ES Final Result [facility] ([place]) 1 [facility] [place] [address] * (ABNORMAL) Hematocrit (05/06/2017 2:40 PM CDT) Hct 22.2(L) 36.1 - 44.3 % [facility] ([place]) Blood specimen (specimen) 05/06/2017 2:40 PM CDT 05/06/2017 2:42 PM CDT Jeremiah Rick Jr., MD LAB BLOOD ORDERABL ES Final Result [facility] ([place]) 1 [place] [address] * (ABNORMAL) Hemoglobin (05/06/2017 9:35 AM CDT) Hgb 7.1(L) 12.1 - 15.1 g/dL [facility] ([place]) Blood specimen (specimen) 05/06/2017 9:35 AM CDT 05/06/2017 9:40 AM CDT us Jeremiah Rick Jr., MD LAB BLOOD ORDERABL ES Final Result Performing Organization Address City/[facility] Co de Phone Number [facility] ([place]) [address] [place] [phone] * (ABNORMAL) Hematocrit (05/06/2017 9:35 AM CDT) Hct 22.4(L) 36.1 - 44.3 % [facility] ([place]) Blood specimen (specimen) 05/06/2017 9:35 AM CDT 05/06/2017 9:40 AM CDT us Jeremiah Rick Jr., MD LAB BLOOD ORDERABL ES Final Result Performing Organization Address City/[facility]/ZIP Co de Phone Number AVINASH BAEZ (HINKLE) [address] [place] [address] Department [place] [address] * Clinical pathology report (05/06/2017 8:35 AM CDT) 05/06/2017 8:35 AM CDT 05/06/2017 8:35 AM CDT Narrative 05/06/2017 3:26 PM CDT [facility] Department of Pathology [address] [place] [id number] Final Report ?Patient Name: JONNIE BANSAL Rafat Address: [address] [place] [address] Service: Emergency ??[place], [place] ??[address] Location: [facility] Taken: 05/06/2017 Gender: F Received 05/06/2017 : 1945 (Age: 71) Hospital #: [id number] Accessioned: 05/06/2017 ?? Patient Type: [facility] IP ?? Physician(s): Dr. Angelita Cox ?? Specimen(s) Received A: Blood Blood Bank Clinical Consultation Reported: 05/06/2017 ABO/Rh: ?A pos Antibody(ies): ??Current: ?E and c ??Previous: ?E Transfusion History: ? Two units April 21, 2017 at [facility]. Tech: ? Sarika Baltazar MT (ASCP) ?Date: ? 05/05/17 Reviewer: ?Nadia Napier MT (ASCP) ?Date: ? 05/06/17 COMMENTS: ?Anti-E previously identified at [facility]. Interpretation: Crossmatch compatible units lacking the E and c antigens should be transfused. ?? Lucian Up M.D. ??Report Electronically Reviewed and Signed Out By ??Lucian Up M.D. ??05/06/2017 15:25:28 ? The performance characteristics of some immunohistochemical stains, fluorescence in-situ hybridization tests and immunophenotyping by flow cytometry cited in this report (if any) were determined by the Surgical Pathology Department at [facility] as part of an ongoing supplier quality engineer program and in compliance with federally mandated [...] characteristics determined by the Surgical Pathology Department [facility]. ??It has not been cleared or approved by the U. S. Food and Drug Administration. Angelita Cox MD LAB PATHOLOGY ORDERABLES Edited Result - Final * Differential, auto (05/06/2017 4:45 AM CDT) Neutrophil pct 69.7 44.0 - 80.0 % [facility] (GAVIN) Imm gran pct 0.7 0.0 - 1.0 % [facility] ([place]AV[place]) Lymphocyte pct 20.6 13.0 - 44.0 % [facility] ([place]AV[place]) Monocyte pct 4.4 2.0 - 11.0 % [facility] ([place]AV[place]) Eosinophil pct 4.4 0.0 - 6.0 % [facility] (GAVIN) Basophil pct 0.2 0.0 - 3.0 % [facility] ([place]AV[place]) Neutrophil abs 3.96 1.60 - 7.00 K/cumm [facility] (GAVIN) Imm gran abs 0.04 0.00 - 0.20 K/cumm [facility] (GAVIN) Lymphocyte abs 1.17 0.50 - 4.30 K/cumm [facility] (GAV[place]) Monocyte abs 0.25 0.10 - 1.00 K/cumm [facility] (GAVIN) Eosinophil abs 0.25 0.00 - 0.60 K/cumm [facility] (GAVIN) Basophil abs 0.01 0.00 - 0.30 K/cumm [facility] (GAVIN) Blood specimen (specimen) 05/06/2017 4:45 AM CDT 05/06/2017 4:58 AM CDT us Angelita Cox MD LAB BLOOD ORDERABLES Fin al Result [facility] (GAVIN) 1 [facility] [facility] [place] [address] * (ABNORMAL) CBC with auto differential (05/06/2017 4:45 AM CDT) WBC 5.68 3.80 - 9.80 K/cumm [facility] (GAVIN) RBC 3.49(L) 3.90 - 5.00 M/cumm [facility] (GAVIN) Hgb 7.4(L) 12.1 - 15.1 g/dL [facility] (GAVIN) Hct 23.3(L) 36.1 - 44.3 % [facility] ([place]) MCV 66.8(L) 80.0 - 100.0 fL [facility] (GAVIN) MCH 21.2(L) 26.7 - 33.7 pg [facility] (GAVIN) MCHC 31.8(L) 32.7 - 36.0 g/dL [facility] (GAVIN) RDW CV 21.4(H) 11.5 - 14.6 % [facility] (GAVIN) Plt 146 140 - 440 K/cumm [facility] (GAVIN) MPV 10.1 8.0 - 12.0 fL [facility] (GAVIN) NRBC 0.4(H) 0.0 - 0.0 % [facility] (GAVIN) NRBC abs 0.02(H) 0.00 - 0.00 K/cumm [facility] (GAVIN) Blood specimen (specimen) 05/06/2017 4:45 AM CDT 05/06/2017 4:58 AM CDT us Angelita Cox MD LAB BLOOD ORDERABLES Fin al Result AVINASH BAEZ (GAVIN) 1 [facility] [employer] [place] [address] * eGFR (05/06/2017 4:45 AM CDT) Pathologist [facility] eGFR >60 mL/min/1.7 3 m2 AVINASH BAEZ (GAVIN) Comment: Interpretive Data Reference Interval Normal ?>/= 90 mL/min/1.73m2 Mildly decreased* ? 60 - 89 mL/min/1.73m2 Mildly to moderately decreased ?45 - 59 mL/min/1.73m2 Moderately to severely decreased ??30 - 44 mL/min/1.73m2 Severely decreased ?15 - 29 mL/min/1.73m2 Kidney Failure ?< 15 ??mL/min/1.73m2 *Relative to young adult level If -Belizean multiply value by 1.16. Estimated glomerular filtration [...] was last reviewed 2016. Blood specimen (specimen) 05/06/2017 4:45 AM CDT 05/06/2017 4:58 AM CDT us Angelita Cox MD LAB BLOOD ORDERABLES Fin al Result [facility]INASH BAEZ (GAVIN) 1 [facility] Department of Laboratories [place], [place] [id number] * (ABNORMAL) Hepatic function panel (05/06/2017 4:45 AM CDT) Pathologist [facility] Protein, sr 5.9(L) 6.0 - 8.4 g/dL [facility]ASH BAE[facility] (GAVIN) Albumin 2.9(L) 3.6 - 5.0 g/dL [facility] (GAVIN) Bilirubin, total 0.9 <=1.2 mg/dL [facility] ([facility] Bilirubin, direct 0.2 0.0 - 0.3 mg/dL [facility] (GAVIN) Alk phos 114 40 - 130 Units/L [facility] (GAVIN) AST 26 10 - 40 Units/L [facility] ([place]AV[place]) ALT 14 5 - 45 Units/L [facility] ([place]AV[place]) AST/ALT ratio 1.9 [facility] (GAVIN) Blood specimen (specimen) 05/06/2017 4:45 AM CDT 05/06/2017 4:58 AM CDT us Angelita Cox MD LAB BLOOD ORDERABLES Fin al Result [facility] (GAVIN) 1 [facility] Department [place] [address] * (ABNORMAL) Basic metabolic panel (05/06/2017 4:45 AM CDT) Sodium 136 135 - 145 mmol/L [facility] (GAVIN) Potassium 4.1 3.5 - 5.1 mmol/L [facility] Chloride 99 97 - 110 mmol/L [facility] ([facility]) CO2 24 22 - 32 mmol/L [facility] ([facility] Anion gap 13 8 - 16 mmol/L [facility] (GAVIN) Glucose 105 70 - 199 mg/dL [facility] (GAVIN) Comment: Interpretive Data Note:The glucose [...] data was last revised on 2014. BUN 14.7 8.0 - 25.0 mg/dL [facility] ([facility] Creatinine 0.83 0.60 - 1.10 mg/dL [facility] ([facility] Calcium 8.1(L) 8.6 - 10.2 mg/dL [facility] (GAVIN) BUN/creat ratio 18 10 - 20 [facility] (GAVIN) Blood specimen (specimen) 05/06/2017 4:45 AM CDT 05/06/2017 4:58 AM CDT us Angelita Cox MD LAB BLOOD ORDERABLES Fin al Result Performing Organization Address City/[facility] Co de Phone Number [facility] (HINKLE) 1 [facility] [place] [address] * (ABNORMAL) Protime-INR (05/06/2017 3:18 AM CDT) PT 29.4(H) 9.5 - 12.5 sec [facility] (GAVIN) INR 2.48(H) 0.90 - 1.20 [facility] (GAVIN) Comment: Interpretive Data Recommended ranges for Protime INR: 2.0 - 3.0 Most indications for Warfarin therapy (e.g. Treatment of DVT, PE, bioprosthetic valve replacement, prophylaxis venous thrombosis, atrial fibrillation). 2.5 - 3.5 Mechanical mitral valve or dual mechanical mitral and Aortic valve replacement. Current Interpretive Data was last revised on 2015. Blood specimen (specimen) 05/06/2017 3:18 AM CDT 05/06/2017 3:23 AM CDT us Jeremiah Rick Jr., MD LAB BLOOD ORDERABL ES Final Result Performing Organization Address [facility] Co de Phone Number [facility] (GAVIN) 1 [facility] [place] [address] * (ABNORMAL) Hemoglobin (05/06/2017 3:18 AM CDT) Hgb 7.0(L) 12.1 - 15.1 g/dL [facility] (GAVIN) Blood specimen (specimen) 05/06/2017 3:18 AM CDT 05/06/2017 3:23 AM CDT Jeremiah Rick Jr., MD LAB BLOOD ORDERABL ES Final Result Performing Organization Address City/[facility]/ZIP Co de Phone Number AVINASH BAEZ (HINKLE) 1 [facility] [place] [address] * (ABNORMAL) Hematocrit (05/06/2017 3:18 AM CDT) Hct 21.7(L) 36.1 - 44.3 % AVINASH SASHA (GAVIN) Blood specimen (specimen) 05/06/2017 3:18 AM CDT 05/06/2017 3:23 AM CDT Jeremiah Rick Jr., MD LAB BLOOD ORDERABL ES Final Result Performing Organization Address [facility] Co de Phone Number AVINASH BAEZ (HINKLE) 1 [facility] [address] * MRSA culture (05/06/2017 12:05 AM CDT) Report Final Report: Negative AVINASH BAEZ (GAVIN) Comment:Testing performed by : [facility], [address] [facility], [place]., [address] Nasal 05/06/2017 12:0 5 AM CDT 05/06/2017 3:23 AM CDT Narrative AVINASH SASHA (GAVIN) - 05/06/2017 3:23 AM CDT us Angelita Cox MD LAB MICROBIOLOGY - GENER AL ORDERABLES Final Result Performing Organization Address City/[facility]/ZIP Co de Phone Number AVINASH BAEZ (HINKLE) 1 [place] [address] * CLINICAL PATHOLOGY REPORT (05/06/2017 12:00 AM CDT) Narrative 05/06/2017 12:00 AM CDT Ordered by an unspecified provider. Historical Provider LAB PATHOLOGY ORDERABLES Final Result * LR RBC (05/05/2017 9:16 PM CDT) Units requested 1 [facility] (GAVIN) Units requested Ready [facility] ([place]) Blood specimen (specimen) 05/05/2017 9:16 PM CDT 05/05/2017 9:16 PM CDT us Angelita Cox MD LAB BLOOD ORDERABLES Fin al Result [facility] ([place]AVIN) 1 [facility] [place] [address] * (ABNORMAL) Hemoglobin (05/05/2017 8:25 PM CDT) Hgb 6.7(L) 12.1 - 15.1 g/dL [facility] (GAVIN) Blood specimen (specimen) 05/05/2017 8:25 PM CDT 05/05/2017 8:27 PM CDT us Jeremiah Rick Jr., MD LAB BLOOD ORDERABL ES Final Result Performing Organization Address City/[facility]/ZIP Co de Phone Number AVINASH BAEZ (GAVIN) [facility] [place] [address] * (ABNORMAL) Hematocrit (05/05/2017 8:25 PM CDT) Hct 21.2(L) 36.1 - 44.3 % AVINASH BAEZ (GAVIN) Blood specimen (specimen) 05/05/2017 8:25 PM CDT 05/05/2017 8:27 PM CDT us Jeremiah Rick Jr., MD LAB BLOOD ORDERABL ES Final Result AVINASH BAEZ (GAVIN) 1 [facility] [place] [address] * (ABNORMAL) Occult blood, fecal non neoplasm screening (05/05/2017 7:12 PM CDT) Occult blood, fecal Positive(A) Negative [facility] (GAVIN) Collection date , feces [id number] [facility] ([place]AVIN) Collection time , feces 1911 [facility] ([place]AV[place]) Stool 05/05/2017 7:12 PM CDT 05/05/2017 7:14 PM CDT us Jeremiah Rick Jr., MD LAB BODY FLUIDS AN D STOOLS ORDERABLES Final Result [facility] (GAVIN) 1 [facility] [address] * Antibody identification (05/05/2017 5:55 PM CDT) Pathologist [facility] Antibody Identification Interpretation Anti-c [facility] (GAVIN) Antibody Identification Interpretation Anti-E [facility] (GAVIN) Blood specimen (specimen) 05/05/2017 5:55 PM CDT 05/05/2017 5:57 PM CDT us Jeremiah Rick Jr., MD LAB BLOOD BANK JUAN T ORDERABLES Edited Result - Final Performing Organization Address [facility]/ZIP Co de Phone Number [facility] (HINKLE) 1 [facility] [place] [address] * Antibody screen (05/05/2017 5:55 PM CDT) Yaneth, indirect, Gel Interpretation Positive [facility] (GAVIN) Blood specimen (specimen) 05/05/2017 5:55 PM CDT 05/05/2017 5:57 PM CDT us Jeremiah Rick Jr., MD LAB BLOOD BANK JUAN T ORDERABLES Final Result AVINASH BAEZ (GAVIN) 1 [facility] Department of [facility] [address] * ABO/Rh (05/05/2017 5:55 PM CDT) Pathologist [facility] ABO/Rh A Positive [facility] (GAVIN) Blood specimen (specimen) 05/05/2017 5:55 PM CDT 05/05/2017 5:57 PM CDT us Jeremiah Rick Jr., MD LAB BLOOD BANK JUAN T ORDERABLES Final Result [facility] (GAVIN) 1 [facility] [place] [place] [address] * (ABNORMAL) Iron profile (05/05/2017 5:55 PM CDT) [facility] Iron 51 35 - 145 mcg/dL [facility] ([place]AVIN) UIBC 160 110 - 350 mcg/dL [facility] ([place]AVIN) TIBC 211(L) 220 - 420 mcg/dL [facility] (GAVIN) Iron saturation 24 15 - 50 % [facility] (GAVIN) Blood specimen (specimen) 05/05/2017 5:55 PM CDT 05/05/2017 7:05 PM CDT us Jeremiah Rick Jr., MD LAB BLOOD ORDERABL ES Final Result Performing Organization Address City/[facility]/ZIP Co de Phone Number [facility] (GAVIN) 1 [facility] [place] [address] * eGFR (05/05/2017 5:55 PM CDT) Pathologist [facility] eGFR 58 mL/min/1.7 3 m2 [facility] (GAVIN) Comment: Interpretive Data Reference Interval Normal ?>/= 90 mL/min/1.73m2 Mildly decreased* ? 60 - 89 mL/min/1.73m2 Mildly to moderately decreased ?45 - 59 mL/min/1.73m2 Moderately to severely decreased ??30 - 44 mL/min/1.73m2 Severely decreased ?15 - 29 mL/min/1.73m2 Kidney Failure ?< 15 ??mL/min/1.73m2 *Relative to young adult level If -Belizean multiply value by 1.16. Estimated glomerular filtration [...] was last reviewed 2016. Blood specimen (specimen) 05/05/2017 5:55 PM CDT 05/05/2017 5:57 PM CDT us Jeremiah Rick Jr., MD LAB BLOOD ORDERABL ES Final Result [facility] (HINKLE) 1 [facility] Department [place] [address] * (ABNORMAL) Basic metabolic panel (05/05/2017 5:55 PM CDT) Sodium 134(L) 135 - 145 mmol/L [facility] (GAVIN) Potassium 4.5 3.5 - 5.1 mmol/L [facility] (GAVIN) Chloride 97 97 - 110 mmol/L [facility] (GAVIN) CO2 26 22 - 32 mmol/L [facility] (GAVIN) Anion gap 11 8 - 16 mmol/L [facility] (GAVIN) Glucose 104 70 - 199 mg/dL [facility] (GAVIN) Comment: Interpretive Data Note:The glucose is [...] data was last revised on 2014. BUN 18.4 8.0 - 25.0 mg/dL [facility] ([place]AV[place]) Creatinine 0.97 0.60 - 1.10 mg/dL [facility] (GAVIN) Calcium 8.4(L) 8.6 - 10.2 mg/dL [facility] ([facility] BUN/creat ratio 19 10 - [address] [facility] ([facility] Blood specimen (specimen) 05/05/2017 5:55 PM CDT 05/05/2017 5:57 PM CDT us Jeremiah iRck Jr., MD LAB BLOOD ORDERABL ES Final Result Performing Organization Address City/[facility]/ZIP Co de Phone Number AVINASH BAEZ (GAVIN) 1 [facility] [place] [address] * (ABNORMAL) Protime-INR (05/05/2017 5:55 PM CDT) PT 33.9(H) 9.5 - 12.5 sec [facility] (GAVIN) INR 2.84(H) 0.90 - 1.20 [facility] (GAVIN) Comment: Interpretive Data Recommended ranges for Protime INR: 2.0 - 3.0 Most indications for Warfarin therapy (e.g. Treatment of DVT, PE, bioprosthetic valve replacement, prophylaxis venous thrombosis, atrial fibrillation). 2.5 - 3.5 Mechanical mitral valve or dual mechanical mitral and Aortic valve replacement. Current Interpretive Data was last revised on 2015. Blood specimen (specimen) 05/05/2017 5:55 PM CDT 05/05/2017 5:57 PM CDT us Jeremiah Rick Jr., MD LAB BLOOD ORDERABL ES Final Result AVINASH BAEZ (GAVIN) 1 [facility] [place] [address] * (ABNORMAL) aPTT (05/05/2017 5:55 PM CDT) aPTT 43.2(H) 25.0 - 37.0 sec [facility] (GAVIN) Blood specimen (specimen) 05/05/2017 5:55 PM CDT 05/05/2017 5:57 PM CDT Jeremiah Rick Jr., MD LAB BLOOD ORDERABL ES Final Result [facility] (GAVIN) 1 [facility] Department [place] [address] * Differential, auto (05/05/2017 5:55 PM CDT) Neutrophil pct 74.6 44.0 - 80.0 % [facility] ([place]AV[place]) Imm gran pct 0.7 0.0 - 1.0 % [facility] ([place]AV[place]) Lymphocyte pct 16.2 13.0 - 44.0 % [facility] ([place]AV[place]) Monocyte pct 4.6 2.0 - 11.0 % [facility] ([place]) Eosinophil pct 3.6 0.0 - 6.0 % [facility] ([place]AV[place]) Basophil pct 0.3 0.0 - 3.0 % [facility] (GAVIN) Neutrophil abs 5.40 1.60 - 7.00 K/cumm [facility] (GAVIN) Imm gran abs 0.05 0.00 - 0.20 K/cumm [facility] (GAVIN) Lymphocyte abs 1.17 0.50 - 4.30 K/cumm [facility] (GAVIN) Monocyte abs 0.33 0.10 - 1.00 K/cumm [facility] (GAVIN) Eosinophil abs 0.26 0.00 - 0.60 K/cumm [facility] (GAV[place]) Basophil abs 0.02 0.00 - 0.30 K/cumm [facility] (GAVIN) Blood specimen (specimen) 05/05/2017 5:55 PM CDT 05/05/2017 5:57 PM CDT us Jeremiah Rick Jr., MD LAB BLOOD ORDERABL ES Final Result Performing Organization Address City/[facility]/ZIP Co de Phone Number [facility] (GAVIN) 1 [facility] Department [place] [address] * (ABNORMAL) CBC with auto differential (05/05/2017 5:55 PM CDT) WBC 7.23 3.80 - 9.80 K/cumm [facility] (GAVIN) RBC 3.23(L) 3.90 - 5.00 M/cumm [facility] (GAVIN) Hgb 6.7(L) 12.1 - 15.1 g/dL [facility] (GAVIN) Hct 21.4(L) 36.1 - 44.3 % [facility] ([place]AV[place]) MCV 66.3(L) 80.0 - 100.0 fL [facility] (GAVIN) MCH 20.7(L) 26.7 - 33.7 pg [facility] (GAVIN) MCHC 31.3(L) 32.7 - 36.0 g/dL [facility] (GAVIN) RDW CV 20.3(H) 11.5 - 14.6 % [facility] (GAVIN) Plt 178 140 - 440 K/cumm [facility] ([place]AVIN) MPV 10.1 8.0 - 12.0 fL [facility] (GAVIN) NRBC 1.1(H) 0.0 - 0.0 % [facility] (GAVIN) NRBC abs 0.08(H) 0.00 - 0.00 K/cumm [facility] (GAVIN) Blood specimen (specimen) 05/05/2017 5:55 PM CDT 05/05/2017 5:57 PM CDT Jeremiah Rick Jr., MD LAB BLOOD ORDERABL ES Final Result [facility] (GAVIN) 1 [facility] Department [place] [address] documented in this encounter Visit Diagnoses Not on filedocumented in this encounter Care Teams Invoice Machine Operator Relationship Specialty Start Date End Date Brittny Salazar MD [address] [address] PCP - General 05/15/09 05/11/17 documented as of this encounter
--- OUTSIDE RECORDS SUMMARY | 2024-10-31 03:53 | XMS_ITS | Encounter Summary ---
Author Organization [facility] Healthcare Address [address] [place] [address] Care Team Providers Care Tank Riveter Name Role Phone Brittny Salazar MD Primary Care Provider [phone] Encounter Details Date Type Department Care Team (Late st Contact Info) Description 04/25/2017 8:38 AM CDT - 04/25/2017 11:59 PM CDT Hospital Encounter [facility] INTERIM Pawel Rock MD [address] [place] [address] Discharge Disposition: Discharge to home or self care Social History Tobacco Use Types Packs/Day Years Used Date Smoking Tobacco: Never Comments Unknown Sex and Gender Information Value Date Recorded Sex Assigned at Not on file 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 Gender Identity Not on file Sexual Orientation [...] Name Priority Date/Time Associated Diagnosis Comments PROTIME-INR STAT 04/25/2017 8:38 AM CDT DISCHARGE LABORATORY CUMULATIVE REPORT 04/25/2017 12:00 AM CDT documented in this encounter Results * (ABNORMAL) Protime-INR (04/25/2017 8:38 AM CDT) PT 30.2(H) 9.5 - 13.0 sec [facility]ASH INR 2.54(H) 0.90 - 1.20 AVINASH Blood specimen (specimen) 04/25/2017 8:38 AM CDT 04/25/2017 9:12 AM CDT us Notinfile Unknown LAB BLOOD ORDERABLES Final Res ult [facility] [address] [address] Department [place] [address] * DISCHARGE LABORATORY CUMULATIVE REPORT (04/25/2017 12:00 AM CDT) Narrative 04/25/2017 12:00 AM CDT Ordered by an unspecified provider. Historical Provider LAB BLOOD ORDERABLES Ashley l Result documented in this encounter Visit Diagnoses Not on filedocumented in this encounter Care Teams Tank Riveter Relationship Specialty Start Date End Date Brittny Salazar MD [address] [email or web address] [address] PCP - General 05/15/09 05/11/17 documented as of this encounter
--- OUTSIDE RECORDS SUMMARY | 2024-10-31 03:53 | XMS_ITS | Encounter Summary ---
Author Organization [facility] Healthcare Address [address] [place] [address] Care Team Providers Care Director Sales And Trade Marketing Name Role Phone Brittny Salazar MD Primary Care Provider [phone] Encounter Details Date Type Department Care Team (Late st Contact Info) Description 04/30/2017 6:42 PM CDT - 04/30/2017 11:59 PM CDT Hospital Encounter [facility] Pawel Rock MD [address] [place] [address] Discharge Disposition: Discharge to home or self care Social History Tobacco Use Types Packs/Day Years Used Date Smoking Tobacco: Never Comments Unknown Sex and Gender Information Value Date Recorded Sex Assigned at Not on file Legal Sex Female 1:04 AM [employer] Gender Identity Not on file Sexual Orientation [...] Name Priority Date/Time Associated Diagnosis Comments EGFR Routine 04/30/2017 4:42 PM CDT DIFFERENTIAL AUTO Routine 04/30/2017 4:4 2 PM CDT BASIC METABOLIC PANEL, SERUM Routine 04/30/2017 4:42 PM CDT CBC WITH AUTO DIFFERENTIAL Routine 04/30/2017 4:42 PM CDT DISCHARGE LABORATORY CUMULATIVE REPORT 04/30/2017 12:00 AM CDT documented in this encounter Results * Differential, auto (04/30/2017 4:42 PM CDT) Neutrophil pct 64.4 % [facility] Imm gran pct 0.8 % [facility] Lymphocyte pct 25.8 % [facility] Monocyte pct 7.0 % [facility] Eosinophil pct 0.1 % [facility] Basophil pct 0.6 % [facility] Neutrophil abs 5.33 1.70 - 6.50 K/cumm [facility] Imm gran abs 0.07 0.00 - 0.10 K/cumm [facility] Lymphocyte abs 2.14 0.80 - 3.30 K/cumm [facility] Monocyte abs 0.58 0.20 - 0.80 K/cumm [facility] Eosinophil abs 0.12 0.00 - 0.50 K/cumm [facility] Basophil abs 0.05 0.00 - 0.10 K/cumm [facility] Blood specimen (specimen) 04/30/2017 4:42 PM CDT 04/30/2017 7:34 PM CDT us Notinfile Unknown LAB BLOOD ORDERABLES Final Res ult [facility] [address] [address] Department [place] [address] * (ABNORMAL) CBC with auto differential (04/30/2017 4:42 PM CDT) WBC 8.29 3.80 - 9.90 K/cumm [facility] RBC 3.82(L) 3.90 - 5.20 M/cumm [facility] Hgb 8.2(L) 11.9 - 15.5 g/dL [facility] Hct 26.7(L) 35.6 - 45.5 % [facility] MCV 69.9(L) 81.3 - 96.4 fL [facility] MCH 21.5(L) 27.1 - 33.3 pg [facility] MCHC 30.7(L) 32.3 - 35.7 g/dL [facility] RDW CV 22.1(H) 11.1 - 14.9 % [facility] RDW SD 52.8(H) 35.7 - 48.1 fL [facility] Plt 238 150 - 400 K/cumm [facility] MPV 11.0 9.1 - 12.3 fL [facility] NRBC 0.6(H) 0.0 - 0.2 % [facility] NRBC abs 0.05(H) 0.00 - 0.01 K/cumm [facility] Blood specimen (specimen) 04/30/2017 4:42 PM CDT 04/30/2017 7:34 PM CDT us Notinfile Unknown LAB BLOOD ORDERABLES Final Res ult [facility] [address] [address] Department [place] [address] * eGFR (04/30/2017 4:42 PM CDT) eGFR 50 mL/min/1.7 3 m2 [facility] Comment: Interpretive Data Reference Interval Normal ?>/= 90 mL/min/1.73m2 Mildly decreased* ? 60 - 89 mL/min/1.73m2 Mildly to moderately decreased ?45 - 59 mL/min/1.73m2 Moderately to severely decreased ??30 - 44 mL/min/1.73m2 Severely decreased ?15 - 29 mL/min/1.73m2 Kidney Failure ?< 15 ??mL/min/1.73m2 *Relative to young adult level If -Pakistani multiply value by 1.16. Estimated glomerular filtration [...] was last reviewed 2016. Blood specimen (specimen) 04/30/2017 4:42 PM CDT 04/30/2017 7:34 PM CDT us Notinfile Unknown LAB BLOOD ORDERABLES Final Res ult Performing Organization Address City/[facility]/ZIP Co de Phone Number [facility] [address] [address] [place] [address] * (ABNORMAL) Basic metabolic panel, serum (04/30/2017 4:42 PM CDT) Sodium 133(L) 135 - 145 mmol/L [facility] Potassium, sr 5.0 3.5 - 5.1 mmol/L [facility] Chloride 95(L) 100 - 114 mmol/L [facility] CO2 24 22 - 32 mmol/L [facility] BUN 16 8 - 24 mg/dL [facility] Glucose 116 70 - 199 mg/dL [facility] Creatinine 1.10 0.60 - 1.30 mg/dL [facility] Calcium 8.5 8.4 - 10.5 mg/dL [facility] Anion gap 19(H) 8 - 16 mmol/L [facility] Blood specimen (specimen) 04/30/2017 4:42 PM CDT 04/30/2017 7:34 PM CDT us Notinfile Unknown LAB BLOOD ORDERABLES Final Res ult Performing Organization Address [facility]/ZIP Co de Phone Number [facility]OPEZ [address] [address] Department [place] [address] * DISCHARGE LABORATORY CUMULATIVE REPORT (04/30/2017 12:00 AM CDT) Narrative 04/30/2017 12:00 AM CDT Ordered by an unspecified provider. us Historical Provider LAB BLOOD ORDERABLES Ashley l Result documented in this encounter Visit Diagnoses Not on filedocumented in this encounter Care Teams Director Sales And Trade Marketing Relationship Specialty Start Date End Date Brittny Salazar MD [address] [address] PCP - General 05/15/09 05/11/17 documented as of this encounter
--- OUTSIDE RECORDS SUMMARY | 2024-10-31 03:53 | XMS_ITS | Encounter Summary ---
Author Organization [facility] Healthcare Address [address] [place] [address] Care Team Providers Care Cio Name Role Phone Brittny Salazar MD Primary Care Provider [phone] Encounter Details Date Type Department Care Team (Late st Contact Info) Description 04/13/2017 11:15 AM CDT - 04/20/2017 3:28 PM CDT Hospital Encounter [facility]MIT [address] [place] [address] Lorena Etienne MD [address] [place] [address] Discharge Disposition: Discharge to home or self care Social History Tobacco Use Types Packs/Day Years Used Date Smoking Tobacco: Never Comments Unknown Sex and Gender Information Value Date Recorded Sex Assigned at Not on file 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 Gender Identity Not on file Sexual Orientation Not on file documented as of this encounter Last Filed Vital Signs Vital Sign Reading Time Taken Comments Blood Pressure 139/52 04/20/2017 12:41 PM CDT Pulse 76 04/20/2017 12:41 PM CDT Temperature - - Respiratory Rate - - Oxygen Saturation 100% 04/20/2017 12: 41 PM CDT Inhaled Oxygen Concentration - - Weight 89.8 kg (197 lb 15.9 oz) 017 10:46 PM CDT Height 162.6 cm (5' 4 ) 04/13/2017 10:4 6 PM CDT Body Mass Index 33.99 04/13/2017 10:46 PM CDT documented in this encounter Medications at Time of Discharge gabapentin (NEURONTIN) 300 mg capsule TAKE ONE CAPSULE 3 TIMES A DAY 10/13/2013 10/12/2018 documented as of this encounter Discharge Disposition Disposition Code Departure Means Destination Discharge to home or self care documented in this encounter Miscellaneous Notes * Op Note - ProviderClifford MD - 04/17/2017 12:00 AM CDT Patient: JONNIE BANSAL Reg No: [id number] H #: [id number] Admit Dt.: 04/13/2017 : 1945 Pt Type: IP Room No: 7352-01 Attending: Lorena Etienne M.D. Surgeon: Lorena Etienne M.D. Dictating: Lorena Etienne M.D. Service Dt: 04/17/2017 OPERATIVE REPORT FACILITY ID: [facility] SURGEON Lorena Etienne MD [employer]ER Luis F Pérez MD [employer]IC[employer] Kelly Alcocer MD PREOPERATIVE DIAGNOSIS Right infected knee arthroplasty. POSTOPERATIVE DIAGNOSIS Right infected knee arthroplasty. PROCEDURE Explant, irrigation, and debridement of above. ANESTHESIA General. COMPLICATIONS None. CONDITION Stable. ESTIMATED BLOOD LOSS EBL was 450. OPERATIVE INDICATIONS The patient is a lady with a longstanding history of increasing right knee pain, status post right total knee arthroplasty, which was initially painless. She developed fulminant infection last week and underwent initial irrigation and debridement with removal of polyethylene liner. She was placed on antibiotics and cultures eventually grew Staph epidermidis, so Infectious Disease recommended explant. The patient understood that the risks included, but were not limited to, continued infection, bone loss, blood loss, fracture, and need for further surgery, and she wished to proceed. OPERATIVE TECHNIQUE On the day of surgery, the patient was brought to the operating room where anesthesia was administered. She was prepped and draped in the usual sterile fashion and a tourniquet was inflated on the right thigh. The prior wound was reopened down to the joint capsule and it was discovered that the tourniquet was not working. This was eventually resolved with later in the case with exchange of cuff and tubing. The implants were removed with a combination of osteotomes, taking care to preserve as much bone as possible. The femur was addressed first, after which the tibial screws were removed and the tibial plate as well as stem were extracted. The wound was then thoroughly irrigated and debrided. A cement spacer was fashioned out of Palacos cement and placed within the joint. The leg was held in traction while this was allowed to dry, and the wound was irrigated with saline to prevent thermal damage to the surrounding neurovascular structures. Hemostasis was achieved and the tourniquet was let down. The wound was closed using PDS, Monocryl, and yuan for the skin. A knee immobilizer was placed, and the patient was awakened and brought back to the recovery room, having tolerated the procedure well. I was present for all critical portions of the case, from incision until closure, and immediately available thereafter. Electronically Authenticated and Edited by: Lorena Etienne MD On 04/24/2017 03:48 PM CDT Lorena Etienne M.D. CAC:[facility] #[id number] Editing MT: TD: 04/18/2017 08:44 AM cc: Lorena Etienne M.D. * Op Note - Provider, MD Clifford - 04/14/2017 12:00 AM CDT Patient: JONNIE BANSAL Reg No: [id number] H #: [id number] Admit Dt.: 04/13/2017 : 1945 Pt Type: IP Room No: 7352-01 Attending: Lorena Etienne M.D. Surgeon: Deshawn Hart M.D. Dictating: Deshawn Hart M.D. Service Dt: 04/14/2017 OPERATIVE REPORT FACILITY ID: [facility] SUR[facility]ON Deshawn Hart MD [employer] Evans Polk MD PREOPERATIVE DIAGNOSIS Right infected total knee arthroplasty. POSTOPERATIVE DIAGNOSIS Right infected total knee arthroplasty. PROCEDURE Irrigation, debridement, polyethylene liner removal. ANESTHESIA General. COMPLICATIONS None. CONDITION Stable. ESTIMATED BLOOD LOSS 100 mL. OPERATIVE INDICATIONS The patient presented to [facility] with right knee pain status post right total knee arthroplasty. She recently had a fulminant infection and we presume that this is a hematologic spread of that infection to her right periprosthetic knee joint. In order to hopefully remove the infection and save the joint, we decided to do the irrigation and debridement, and polyethylene removal in an expedient manner. OPERATIVE TECHNIQUE The patient was identified in the preoperative holding area. The patient's right knee was marked as the side and site for surgery, and taken back to the OR by the anesthesia care team. General endotracheal anesthesia was induced. She was transferred to the operating room table. All bony prominences were well padded. She was prepped and draped in usual sterile fashion. Time-out was performed. Preoperative antibiotics were given. Incision was made down to the knee. Medial parapatellar approach was utilized. The patient's synovium, medial, lateral, suprapatellar and infrapatellar were all excised. Five cultures were sent. The polyethylene insert was removed. A Hibiclens sponge was then used to thoroughly scrub the metal surfaces of the total knee joint. This was followed by a 3 minute Betadine soak followed by irrigation of 3L normal saline. The capsule was then closed using PDS suture, followed by the skin utilizing 2-0 Monocryl. The final layer of skin closure was with a incisional wound VAC utilizing an Adaptic top layer. We placed the patient in a knee immobilizer for comfort afterwards, and the plan was to take the patient back to the operating room in the near future to the either put in another polyethylene liner or to do an explantation of the knee. ATTESTATION OF PRESENCE I was present for the entire surgery. SPECIMENS REMOVED Excisional debridement down to bone including synovium, subcutaneous tissue, skin, muscle, bone. INTRAOPERATIVE FLUIDS 750 mL. SPONGE, INSTRUMENT AND NEEDLE COUNTS Correct. CONDITION ON DISCHARGE Stable. Electronically Authenticated and Edited by: Deshawn Hart MD On 05/07/2017 10:51 AM CDT Deshawn Hart M.D. :[facility] #[id number] Editing MT: TD: 05/06/2017 12:23 PM cc: Chris Hart M.D. Lorena Etienne M.D. documented in this encounter Plan of Treatment Not on file documented as of this encounter Procedures Procedure Name Priority Date/Time Associated Diagnosis Comments APTT After X-Ray 04/20/2017 1:50 AM CDT PROTIME-INR After X-Ray 04/20/2017 1:50 AM CDT DISCHARGE LABORATORY CUMULATIVE REPORT 04/20/2017 12:00 AM CDT APTT After X-Ray 04/19/2017 6:06 PM CDT APTT After X-Ray 04/19/2017 8:36 AM CDT APTT After X-Ray 04/18/2017 11:04 PM CDT PROTIME-INR After X-Ray 04/18/2017 11:04 PM CDT APTT STAT 04/18/2017 3:20 PM CDT APTT STAT 04/18/2017 6:10 AM CDT PROTIME-INR After X-Ray 04/18/2017 12:31 AM CDT CBC WITHOUT DIFFERENTIAL After X-Ray 04/18/2017 12:31 AM CDT XR KNEE 1 OR 2 VW Routine 04/18/2017 12:22 AM CDT GLUCOSE POC Routine Gen Lab 04/17/2017 6:26 PM CDT DIFFERENTIAL AUTO STAT 04/17/2017 6:1 5 PM CDT CBC WITH AUTO DIFFERENTIAL STAT 04/17/2017 6:15 PM CDT APTT STAT 04/17/2017 6:08 PM CDT PROTIME-INR STAT 04/17/2017 6:08 PM CDT BASIC METABOLIC PANEL STAT 04/17/2017 6:07 PM CDT BLOOD GAS VENOUS POC Routine Gen Lab 04/17/2017 2:59 PM CDT ANTIBODY IDENTIFICATION After X-Ray 04/17/20 7:49 AM CDT B FYA ANTIGEN TYPE After X-Ray 04/17/2017 6: 00 AM CDT TYPE AND SCREEN After X-Ray 04/17/2017 6:00 AM CDT PACKED RED BLOOD CELLS 4 After X-Ray 04/17/2017 5:46 AM CDT APTT STAT 04/17/2017 4:07 AM CDT APTT STAT 04/16/2017 9:31 PM CDT CBC WITHOUT DIFFERENTIAL After X-Ray 04/16/2017 9:31 PM CDT APTT STAT 04/16/2017 2:25 PM CDT PACKED RED BLOOD CELLS 2 After X-Ray 04/16/2017 12:32 PM CDT XR KNEE 1 OR 2 VW Routine 04/16/2017 1:2 5 AM CDT APTT STAT 04/15/2017 11:45 PM CDT DIFFERENTIAL AUTO After X-Ray 04/15/2017 11:40 PM CDT CBC WITH AUTO DIFFERENTIAL After X-Ray 04/15/2017 11:40 PM CDT HEPATIC FUNCTION PANEL After X-Ray 7 11:40 PM CDT BASIC METABOLIC PANEL After X-Ray 04/15/2017 11:40 PM CDT APTT STAT 04/15/2017 5:20 PM CDT PACKED RED BLOOD CELLS 2 After X-Ray 04/15/2017 3:44 PM CDT APTT After X-Ray 04/15/2017 9:37 AM CDT DIFFERENTIAL AUTO STAT 04/15/2017 6:4 7 AM CDT CBC WITH AUTO DIFFERENTIAL STAT 04/15/2017 6:47 AM CDT BASIC METABOLIC PANEL STAT 04/15/2017 6:47 AM CDT APTT After X-Ray 04/15/2017 2:01 AM CDT PROTIME-INR After X-Ray 04/15/2017 2:01 AM CDT INSERT VENA CAVA FILTER Routine 04/14/20 17 5:35 PM CDT MYCOLOGY (FUNGAL) CULTURE Routine Gen Lab 04/14/2017 1:56 PM CDT AEROBIC AND ANAEROBIC CULTURE AND GRAM STAIN Routine Gen Lab 04/14/2017 1:56 PM CDT MYCOBACTERIOLOGY AFB CULTURE Routine Gen Lab 04/14/2017 1:56 PM CDT MYCOLOGY (FUNGAL) CULTURE Routine Gen Lab 04/14/2017 1:52 PM CDT AEROBIC AND ANAEROBIC CULTURE AND GRAM STAIN Routine Gen Lab 04/14/2017 1:52 PM CDT MYCOBACTERIOLOGY AFB CULTURE Routine Gen Lab 04/14/2017 1:52 PM CDT MYCOLOGY (FUNGAL) CULTURE Routine Gen Lab 04/14/2017 1:47 PM CDT AEROBIC AND ANAEROBIC CULTURE AND GRAM STAIN Routine Gen Lab 04/14/2017 1:47 PM CDT MYCOBACTERIOLOGY AFB CULTURE Routine Gen Lab 04/14/2017 1:47 PM CDT PACKED RED BLOOD CELLS 2 After X-Ray 04/14/2017 9:32 AM CDT APTT STAT 04/14/2017 6:32 AM CDT PROTIME-INR STAT 04/14/2017 6:32 AM CDT ANTIBODY IDENTIFICATION STAT 04/14/20 5:01 AM CDT B E ANTIGEN TYPE STAT 04/13/2017 11:11 PM CDT BLOOD CULTURE RTNm 04/13/2017 11:11 PM CDT BLOOD CULTURE RTNm 04/13/2017 11:11 PM CDT APTT STAT 04/13/2017 11:11 PM CDT PROTIME-INR STAT 04/13/2017 11:11 PM CDT CBC WITHOUT DIFFERENTIAL STAT 04/13/2017 11:11 PM CDT HEMOGLOBIN A1C STAT 04/13/2017 11:11 PM CDT LIPID PANEL After X-Ray 04/13/2017 11:11 PM CDT BASIC METABOLIC PANEL After X-Ray 04/13/2017 11:11 PM CDT XR KNEE 1 OR 2 VW Routine 04/13/2017 8:2 0 PM CDT XR CHEST PA LATERAL 2 VIEWS Routine 04/13/2017 8:20 PM CDT FLUID REFERENCE RANGE STAT 04/13/2017 4:18 PM CDT MYCOLOGY (FUNGAL) CULTURE AND STAIN RTNm 04/13/2017 4:18 PM CDT BODY FLUID AEROBIC AND ANAEROBIC CULTURE AND GRAM STAIN Now 04/13/2017 4:18 PM CDT MYCOBACTERIOLOGY AFB CULTURE RTNm 04/13/2017 4:18 PM CDT BODY FLUID CRYSTAL STAT 04/13/2017 4: 18 PM CDT CSF CELL COUNT WITH DIFFERENTIAL STAT 04/13/2017 4:18 PM CDT DIFFERENTIAL AUTO STAT 04/13/2017 2:2 3 PM CDT CBC WITH AUTO DIFFERENTIAL STAT 04/13/2017 2:23 PM CDT TROPONIN I STAT 04/13/2017 2:23 PM CDT ERYTHROCYTE SEDIMENTATION RATE STAT 04/13/2017 2:23 PM CDT CRP, HIGH SENSITIVITY STAT 04/13/2017 2:23 PM CDT BASIC METABOLIC PANEL STAT 04/13/2017 2:23 PM CDT documented in this encounter Results * (ABNORMAL) aPTT (04/20/2017 1:50 AM CDT) aPTT 46.0(H) 25.0 - 37.0 sec [facility] Comment: Interpretive Data Therapeutic heparin range:60.0 - 94.0 sec based on correlation with therapeutic heparin activity range of 0.3 -0.7 Units/mL. Current interpretive data was last revised on 2011. Blood specimen (specimen) 04/20/2017 1:50 AM CDT 04/20/2017 2:23 AM CDT José Miguel Olivera LAB BLOOD ORDERABLES Final Resul t Performing Organization Address [facility] de Phone Number [facility] Department [place] [address] * (ABNORMAL) Protime-INR (04/20/2017 1:50 AM CDT) Pathologist [facility] PT 22.3(H) 9.2 - 14.0 sec [facility] INR 1.93(H) 0.81 - 1.22 [facility] Comment: Interpretive Data Inpatient therapeutic ranges* Atrial fibrillation ?2.0-3.0 INR Venous thrombo-embolism ?2.0-3.0 INR Bioprosthetic heart valve ?* Mechanical heart valve, bileaflet or tilting disk,aortic position ? 2.0-3.0 INR All other,or bileaflet or tilting disk, in mitral position ? 2.5-3.5 INR *See the pharmacy resource directory (PHRED) for an updated copy of the Tool Book at [email or web address] [place]/[facility]/pharmacy.nsf Current Interpretive Data was last revised 2012. Blood specimen (specimen) 04/20/2017 1:50 AM CDT 04/20/2017 2:23 AM CDT José Miguel Olivera LAB BLOOD ORDERABLES Final Resul t Performing Organization Address [facility] de Phone Number [facility] Department [place] [address] * DISCHARGE LABORATORY CUMULATIVE REPORT (04/20/2017 12:00 AM CDT) Narrative 04/20/2017 12:00 AM CDT Ordered by an unspecified provider. Clifford Nguyen MD LAB BLOOD ORDERABLES Ashley garcia Result * (ABNORMAL) aPTT (04/19/2017 6:06 PM CDT) aPTT 68.0(H) 25.0 - 37.0 sec [facility] Comment: Interpretive Data Therapeutic heparin range:60.0 - 94.0 sec based on correlation with therapeutic heparin activity range of 0.3 -0.7 Units/mL. Current interpretive data was last revised on 2011. Blood specimen (specimen) 04/19/2017 6:06 PM CDT 04/19/2017 6:37 PM CDT José Miguel Olivera LAB BLOOD ORDERABLES Final Resul t Performing Organization Address [facility] Co de Phone Number [facility] [place] [address] * (ABNORMAL) aPTT (04/19/2017 8:36 AM CDT) aPTT 39.9(H) 25.0 - 37.0 sec [facility] Comment: Interpretive Data Therapeutic heparin range:60.0 - 94.0 sec based on correlation with therapeutic heparin activity range of 0.3 -0.7 Units/mL. Current interpretive data was last revised on 2011. Blood specimen (specimen) 04/19/2017 8:36 AM CDT 04/19/2017 10:19 AM CDT Penelope Read MD LAB BLOOD ORDERABLES Final Resul t [facility] [place] [address] * (ABNORMAL) aPTT (04/18/2017 11:04 PM CDT) aPTT 40.0(H) 25.0 - 37.0 sec [facility] Comment: Interpretive Data Therapeutic heparin range:60.0 - 94.0 sec based on correlation with therapeutic heparin activity range of 0.3 -0.7 Units/mL. Current interpretive data was last revised on 2011. Blood specimen (specimen) 04/18/2017 11:04 PM CDT 04/18/2017 11:42 PM CDT us Shelton Townsend MD LAB BLOOD ORDERABLES Final Res ult [facility] Department [place] [address] * (ABNORMAL) Protime-INR (04/18/2017 11:04 PM CDT) Pathologist [facility] PT 17.8(H) 9.2 - 14.0 sec [facility] INR 1.55(H) 0.81 - 1.22 [facility] Comment: Interpretive Data Inpatient therapeutic ranges* Atrial fibrillation ?2.0-3.0 INR Venous thrombo-embolism ?2.0-3.0 INR Bioprosthetic heart valve ?* Mechanical heart valve, bileaflet or tilting disk,aortic position ? 2.0-3.0 INR All other,or bileaflet or tilting disk, in mitral position ? 2.5-3.5 INR *See the pharmacy resource directory (PHRED) for an updated copy of the Tool Book at [email or web address] [place]/[facility]/pharmacy.nsf Current Interpretive Data was last revised 2012. Blood specimen (specimen) 04/18/2017 11:04 PM CDT 04/18/2017 11:42 PM CDT Shelton Townsend MD LAB BLOOD ORDERABLES Final Res ult Performing Organization Address [facility] Co de Phone Number [facility] [place] [address] * (ABNORMAL) aPTT (04/18/2017 3:20 PM CDT) aPTT 54.8(H) 25.0 - 37.0 sec [facility] Comment: Interpretive Data Therapeutic heparin range:60.0 - 94.0 sec based on correlation with therapeutic heparin activity range of 0.3 -0.7 Units/mL. Current interpretive data was last revised on 2011. Blood specimen (specimen) 04/18/2017 3:20 PM CDT 04/18/2017 3:51 PM CDT us Notinfile Unknown LAB BLOOD ORDERABLES Final Res ult Performing Organization Address [facility] [place] [address] * (ABNORMAL) aPTT (04/18/2017 6:10 AM CDT) aPTT 67.8(H) 25.0 - 37.0 sec [facility] Comment: Interpretive Data Therapeutic heparin range:60.0 - 94.0 sec based on correlation with therapeutic heparin activity range of 0.3 -0.7 Units/mL. Current interpretive data was last revised on 2011. Blood specimen (specimen) 04/18/2017 6:10 AM CDT 04/18/2017 6:45 AM CDT us Notinfile Unknown LAB BLOOD ORDERABLES Final Res ult Performing Organization Address [facility] Co de Phone Number [facility] [place] [address] * (ABNORMAL) Protime-INR (04/18/2017 12:31 AM CDT) Pathologist [facility] PT 15.9(H) 9.2 - 14.0 sec [facility] INR 1.39(H) 0.81 - 1.22 [facility] Comment: Interpretive Data Inpatient therapeutic ranges* Atrial fibrillation ?2.0-3.0 INR Venous thrombo-embolism ?2.0-3.0 INR Bioprosthetic heart valve ?* Mechanical heart valve, bileaflet or tilting disk,aortic position ? 2.0-3.0 INR All other,or bileaflet or tilting disk, in mitral position ? 2.5-3.5 INR *See the pharmacy resource directory (PHRED) for an updated copy of the Tool Book at http://[email or web address] [place]/[facility]/pharmacy.nsf Current Interpretive Data was last revised 2012. Blood specimen (specimen) 04/18/2017 12:31 AM CDT 04/18/2017 1:32 AM CDT us José Miguel Olivera LAB BLOOD ORDERABLES Final Resul t [facility] Department [place] [address] * (ABNORMAL) CBC without differential (04/18/2017 12:31 AM CDT) [facility] WBC 8.71 3.80 - 9.90 K/cumm [facility] RBC 3.87(L) 3.90 - 5.20 M/cumm [facility] Hgb 8.1(L) 11.9 - 15.5 g/dL [facility] Hct 26.3(L) 35.6 - 45.5 % [facility] MCV 68.0(L) 81.3 - 96.4 fL [facility] MCH 20.9(L) 27.1 - 33.3 pg [facility] MCHC 30.8(L) 32.3 - 35.7 g/dL [facility] RDW CV 19.8(H) 11.1 - 14.9 % [facility] RDW SD 46.8 35.7 - 48.1 fL [facility] NRBC 0.0 0.0 - 0.2 % [facility] NRBC abs 0.00 0.00 - 0.01 K/cumm [facility] Plt 171 150 - 400 K/cumm [facility] MPV 11.1 9.1 - 12.3 fL [facility] Blood specimen (specimen) 04/18/2017 12:31 AM CDT 04/18/2017 1:33 AM CDT José Miguel Olivera LAB BLOOD ORDERABLES Final Resul t [facility] Department [place] [address] * XR Knee 1 Or 2 VW (04/18/2017 12:22 AM CDT) Anatomical Region Laterality Modality N/A Radiographic Zhane ging 04/18/2017 12:2 2 AM CDT Narrative 04/18/2017 12:22 AM CDT LADI OJEDA M.D. FINAL REPORT ACC# ??Date Time ??Exam [id number] Apr 17, 2017 19:22:00 [id number] Knee 1 or 2 views R EXAMINATION: ?Right knee 1 or 2 views HISTORY: ??Infected right knee arthroplasty FINDINGS: ?? Two-view examination of the right knee is performed with comparison to 04/13/2017. There has been interval explantation of the right knee arthroplasty and placement of antibiotic spacer at the tibiofemoral joint. There is associated intra-articular and soft tissue gas. There is no acute fracture. IMPRESSION: ?? Interval right knee arthroplasty explantation and placement of antibiotic cement spacer. Requested By: KELLY ALCOCER M.D. Dictated By: ?? LADI OJEDA M.D. ??on Apr 18 2017 11:02A This document has been electronically signed by: LADI OJEDA M.D. on Apr 18 2017 11:02A [id number] Procedure Note Miscellaneous, Not In File / Provider, MD Clifford - 04/18/2017 LADI OJEDA M.D. FINAL REPORT ACC# Date Time Exam [id number] Apr 17, 2017 19:22:00 [id number] Knee 1 or 2 views R EXAMINATION: Right knee 1 or 2 views HISTORY: Infected right knee arthroplasty FINDINGS: Two-view examination of the right knee is performed with comparison to 04/13/2017. There has been interval explantation of the right knee arthroplasty and placement of antibiotic spacer at the tibiofemoral joint. There is associated intra-articular and soft tissue gas. There is no acute fracture. IMPRESSION: Interval right knee arthroplasty explantation and placement of antibiotic cement spacer. Requested By: KELLY ALCOCER M.D. Dictated By: LADI OJEDA M.D. on Apr 18 2017 11:02A This document has been electronically signed by: LADI OJEDA M.D. on Apr 18 2017 11:02A [id number] us Not In File Miscellaneous IMG XR PROCEDURES Ashley l Result * Glucose POC (04/17/2017 6:26 PM CDT) Glucose, POC 106 70 - 199 mg/dL [facility] Blood specimen (specimen) 04/17/2017 6:26 PM CDT 04/17/2017 6:26 PM CDT us Lorena Etienne MD POINT OF CARE TEST O RDERABLES Final Result [facility] Department [place] [address] * (ABNORMAL) Differential, auto (04/17/2017 6:15 PM CDT) [facility] Neutrophil pct 83.0 % [facility] Imm gran pct 0.7 % [facility] Lymphocyte pct 9.3 % [facility] Monocyte pct 5.5 % [facility] Eosinophil pct 1.2 % [facility] Basophil pct 0.3 % [facility] Neutrophil abs 8.19(H) 1.70 - 6.50 K/cumm [facility] Imm gran abs 0.07 0.00 - 0.10 K/cumm [facility] Lymphocyte abs 0.92 0.80 - 3.30 K/cumm [facility] Monocyte abs 0.54 0.20 - 0.80 K/cumm [facility] Eosinophil abs 0.12 0.00 - 0.50 K/cumm [facility] Basophil abs 0.03 0.00 - 0.10 K/cumm [facility] Blood specimen (specimen) 04/17/2017 6:15 PM CDT 04/17/2017 7:34 PM CDT us Lorena Etienne MD LAB BLOOD ORDERABLES Final Result [facility] Department [place] [address] * (ABNORMAL) CBC with auto differential (04/17/2017 6:15 PM CDT) [facility] WBC 9.87 3.80 - 9.90 K/cumm [facility] RBC 4.67 3.90 - 5.20 M/cumm [facility] Hgb 9.9(L) 11.9 - 15.5 g/dL [facility] Hct 32.4(L) 35.6 - 45.5 % [facility] MCV 69.4(L) 81.3 - 96.4 fL [facility] Comment:MCV delta due to chapis arent blood transfusion. MCH 21.2(L) 27.1 - 33.3 pg [facility] MCHC 30.6(L) 32.3 - 35.7 g/dL [facility] RDW CV 21.2(H) 11.1 - 14.9 % [facility] RDW SD 50.5(H) 35.7 - 48.1 fL [facility] Plt 175 150 - 400 K/cumm [facility] MPV 11.2 9.1 - 12.3 fL [facility] NRBC 0.0 0.0 - 0.2 % [facility] NRBC abs 0.00 0.00 - 0.01 K/cumm [facility] Blood specimen (specimen) 04/17/2017 6:15 PM CDT 04/17/2017 7:34 PM CDT us Lorena Etienne MD LAB BLOOD ORDERABLES Final Result Performing Organization Address [facility] Co de Phone Number [facility] [employer] [address] * aPTT (04/17/2017 6:08 PM CDT) aPTT 31.0 25.0 - 37.0 sec [facility] Comment: Interpretive Data Therapeutic heparin range:60.0 - 94.0 sec based on correlation with therapeutic heparin activity range of 0.3 -0.7 Units/mL. Current interpretive data was last revised on 2011. Blood specimen (specimen) 04/17/2017 6:08 PM CDT 04/17/2017 7:33 PM CDT us Notinfile Unknown LAB BLOOD ORDERABLES Final Res ult Performing Organization Address [facility] Co de Phone Number [facility] [place] [address] * Protime-INR (04/17/2017 6:08 PM CDT) PT 13.2 9.2 - 14.0 sec [facility] INR 1.15 0.81 - 1.22 [facility] Comment: Interpretive Data Inpatient therapeutic ranges* Atrial fibrillation ?2.0-3.0 INR Venous thrombo-embolism ?2.0-3.0 INR Bioprosthetic heart valve ?* Mechanical heart valve, bileaflet or tilting disk,aortic position ? 2.0-3.0 INR All other,or bileaflet or tilting disk, in mitral position ? 2.5-3.5 INR *See the pharmacy resource directory (PHRED) for an updated copy of the Tool Book at [email or web address].nsf Current Interpretive Data was last revised 2012. Blood specimen (specimen) 04/17/2017 6:08 PM CDT 04/17/2017 7:33 PM CDT us Notinfile Unknown LAB BLOOD ORDERABLES Final Res ult [facility] Department [place] [address] * Basic metabolic panel (04/17/2017 6:07 PM CDT) Sodium 140 135 - 145 mmol/L [facility] Potassium, pl 4.4 3.3 - 4.9 mmol/L [facility] Chloride 106 97 - 110 mmol/L [facility] CO2 26 22 - 32 mmol/L [facility] BUN 10 8 - 25 mg/dL [facility] Glucose 120 70 - 199 mg/dL [facility] Creatinine 0.88 0.60 - 1.10 mg/dL [facility] Calcium 8.7 8.5 - 10.3 mg/dL [facility] Anion gap 8 2 - 15 mmol/L [facility] Blood specimen (specimen) 04/17/2017 6:07 PM CDT 04/17/2017 7:36 PM CDT us Notinfile Unknown LAB BLOOD ORDERABLES Final Res ult [facility] Department [place] [address] * (ABNORMAL) Blood Gas Venous POC (04/17/2017 2:59 PM CDT) pH, amelia POC 7.43 [facility] pCO2, amelia POC 46 mmHg [facility] pO2, amelia POC 52 mmHg [facility] Na POC 135 135 - 145 mmol/L [facility] K POC 4.7 3.3 - 4.9 mmol/L [facility] Ionized Ca, POC 4.89 4.50 - 5.10 mg/dL [facility] Hematocrit POC 28.0(L) 35.6 - 45.5 % [facility] Glucose POC GEM 3000 97 70 - 199 mg/dL [facility] HCO3, amelia POC 31(H) 20 - 30 mmol/L [facility] Total CO2, amelia POC 32(H) 21 - 30 mmol/L [facility] Base excess, amelia POC 5.5 mmol/L [facility] O2 sat venous POC 87(H) 60 - 85 % [facility] Blood specimen (specimen) 04/17/2017 2:59 PM CDT 04/17/2017 2:59 PM CDT us Lorena Etienne MD LAB BLOOD ORDERABLES Final Result Performing Organization Address [facility]/ZIP Co de Phone Number [facility] Department [place] [address] * Antibody identification (04/17/2017 7:49 AM CDT) Antibody ID 1 Antibody of Undetermined Specificity [facility] Antibody ID 2 Anti-E [facility] Blood specimen (specimen) 04/17/2017 7:49 AM CDT 04/17/2017 7:49 AM CDT us Notinfile Unknown LAB BLOOD BANK TEST ORDERABLES Final Result Performing Organization Address [facility] Co de Phone Number [facility] [place] [address] * B FyA Antigen Type (04/17/2017 6:00 AM CDT) RBC phenotyping, Fya ag Positive [facility] Blood specimen (specimen) 04/17/2017 6:00 AM CDT 04/17/2017 6:28 AM CDT us Notinfile Unknown LAB BLOOD ORDERABLES Final Res ult Performing Organization Address [facility] Co de Phone Number [facility] [place] [address] * (ABNORMAL) Type and screen (04/17/2017 6:00 AM CDT) ABO Rh A Positive [facility] Yaneth, indirect Positive(A) [facility] Blood specimen (specimen) 04/17/2017 6:00 AM CDT 04/17/2017 6:28 AM CDT us Notinfile Unknown LAB BLOOD BANK TEST ORDERABLES Edited Result - Final Performing Organization Address [facility] Co de Phone Number [facility] [place] [address] * Packed Red Blood Cells 4 (04/17/2017 5:46 AM CDT) RBC, Leukoreduced PROD_CD :E0336 -1 RED BLOOD CELLS, LEUKOCYTES REDUCED UNIT_ID :[id number] -D ABORHP :A POS PROD_STAT :RETURNED [facility] RBC, Leukoreduced PROD_CD :E0336 -1 RED BLOOD CELLS, LEUKOCYTES REDUCED UNIT_ID :[id number] -3 ABORHP :A POS PROD_STAT :PRESUMED TRANSFUSED [facility] RBC, Leukoreduced PROD_CD :E0336 -1 RED BLOOD CELLS, LEUKOCYTES REDUCED UNIT_ID :[id number] -3 ABORHP :A POS PROD_STAT :PRESUMED TRANSFUSED [facility] RBC, Leukoreduced PROD_CD :E0336 -1 RED BLOOD CELLS, LEUKOCYTES REDUCED UNIT_ID :[id number] -C ABORHP :A POS PROD_STAT :RETURNED [facility] Blood specimen (specimen) 04/17/2017 5:46 AM CDT 04/17/2017 5:46 AM CDT Narrative [facility] - 04/17/2017 12:24 PM CDT Reason:Preexisting cardiovascular disease or complications and Hgb < 8 g/dl us Notinfile Unknown LAB BLOOD ORDERABLES Edited Re sult - Final Performing Organization Address [facility] Co de Phone Number [facility] [place] [address] * (ABNORMAL) aPTT (04/17/2017 4:07 AM CDT) aPTT 71.6(H) 25.0 - 37.0 sec [facility] Comment: Interpretive Data Therapeutic heparin range:60.0 - 94.0 sec based on correlation with therapeutic heparin activity range of 0.3 -0.7 Units/mL. Current interpretive data was last revised on 2011. Blood specimen (specimen) 04/17/2017 4:07 AM CDT 04/17/2017 4:43 AM CDT us Notinfile Unknown LAB BLOOD ORDERABLES Final Res ult Performing Organization Address [facility] Co de Phone Number [facility] [place] [address] * (ABNORMAL) aPTT (04/16/2017 9:31 PM CDT) aPTT 60.7(H) 25.0 - 37.0 sec [facility] Comment: Interpretive Data Therapeutic heparin range:60.0 - 94.0 sec based on correlation with therapeutic heparin activity range of 0.3 -0.7 Units/mL. Current interpretive data was last revised on 2011. Blood specimen (specimen) 04/16/2017 9:31 PM CDT 04/16/2017 9:56 PM CDT us Notinfile Unknown LAB BLOOD ORDERABLES Final Res ult [facility] Department [place] [address] * (ABNORMAL) CBC without differential (04/16/2017 9:31 PM CDT) WBC 4.83 3.80 - 9.90 K/cumm [facility] RBC 3.85(L) 3.90 - 5.20 M/cumm [facility] Hgb 7.3(L) 11.9 - 15.5 g/dL [facility] Hct 24.3(L) 35.6 - 45.5 % [facility] MCV 63.1(L) 81.3 - 96.4 fL [facility] MCH 19.0(L) 27.1 - 33.3 pg [facility] MCHC 30.0(L) 32.3 - 35.7 g/dL [facility] RDW CV 15.3(H) 11.1 - 14.9 % [facility] RDW SD 34.6(L) 35.7 - 48.1 fL [facility] NRBC 0.0 0.0 - 0.2 % [facility] NRBC abs 0.00 0.00 - 0.01 K/cumm [facility] Plt 149(L) 150 - 400 K/cumm [facility] MPV 10.6 9.1 - 12.3 fL [facility] Blood specimen (specimen) 04/16/2017 9:31 PM CDT 04/16/2017 9:59 PM CDT us Notinfile Unknown LAB BLOOD ORDERABLES Final Res ult Performing Organization Address City/[facility]/ZIP Co de Phone Number [facility] [place] [address] * (ABNORMAL) aPTT (04/16/2017 2:25 PM CDT) aPTT 78.5(H) 25.0 - 37.0 sec [facility] Comment: Interpretive Data Therapeutic heparin range:60.0 - 94.0 sec based on correlation with therapeutic heparin activity range of 0.3 -0.7 Units/mL. Current interpretive data was last revised on 2011. Blood specimen (specimen) 04/16/2017 2:25 PM CDT 04/16/2017 2:48 PM CDT us Notinfile Unknown LAB BLOOD ORDERABLES Final Res ult Performing Organization Address [facility] Co de Phone Number [facility] [place] [address] * Packed Red Blood Cells 2 (04/16/2017 12:32 PM CDT) RBC, Leukoreduced PROD_CD :E0336 -1 RED BLOOD CELLS, LEUKOCYTES REDUCED UNIT_ID :[id number] -X ABORHP :A POS PROD_STAT :PRESUMED TRANSFUSED [facility] RBC, Leukoreduced PROD_CD :E0336 -1 RED BLOOD CELLS, LEUKOCYTES REDUCED UNIT_ID :[id number] -M ABORHP :A POS PROD_STAT :RETURNED [facility] Blood specimen (specimen) 04/16/2017 12:32 PM CDT 04/16/2017 12:32 PM CDT Narrative [facility] - 04/17/2017 12:24 PM CDT Reason:Prepare product for intraoperative transfusion us José Miguel Olivera LAB BLOOD ORDERABLES Edited Resu lt - Final Performing Organization Address City/[facility]/ZIP Co de Phone Number [facility] [place] [address] * XR Knee 1 Or 2 VW (04/16/2017 1:25 AM CDT) Anatomical Region Laterality Modality N/A Radiographic Zhane ging 04/16/2017 1:25 AM CDT Narrative 04/16/2017 1:25 AM CDT DESHAWN LE M.D. FINAL REPORT ACC# ??Date Time ??Exam [id number] Apr 15, 2017 20:25:00 90630 Knee 1 or 2 views L EXAMINATION: ?? 1. Left knee 1 or 2 views HISTORY: Left knee arthroplasty FINDINGS: Two views submitted without comparison. There is a left total knee arthroplasty in near-anatomic alignment. No acute fractures are identified. There is no effusion. IMPRESSION: ?? 1. Left total knee arthroplasty in near-anatomic alignment. Requested By: JOSÉ MIGUEL OLIVERA Dictated By: ?? DESHAWN LE M.D. ??on Apr 16 2017 ??6:36A This document has been electronically signed by: DESHAWN LE M.D. on Apr 16 2017 ??6:36A [id number] Procedure Note Miscellaneous, Not In File / Provider, MD Clifford - 04/16/2017 DESHAWN LE M.D. FINAL REPORT ACC# Date Time Exam [id number] Apr 15, 2017 20:25:00 27769 Knee 1 or 2 views L EXAMINATION: 1. Left knee 1 or 2 views HISTORY: Left knee arthroplasty FINDINGS: Two views submitted without comparison. There is a left total knee arthroplasty in near-anatomic alignment. No acute fractures are identified. There is no effusion. IMPRESSION: 1. Left total knee arthroplasty in near-anatomic alignment. Requested By: JOSÉ MIGUEL OLIVERA Dictated By: DESHAWN LE M.D. on Apr 16 2017 6:36A This document has been electronically signed by: DESHAWN LE M.D. on Apr 16 2017 6:36A [id number] us Not In File Miscellaneous IMG XR PROCEDURES Ashley l Result * (ABNORMAL) aPTT (04/15/2017 11:45 PM CDT) aPTT 56.4(H) 25.0 - 37.0 sec [facility] Comment: Interpretive Data Therapeutic heparin range:60.0 - 94.0 sec based on correlation with therapeutic heparin activity range of 0.3 -0.7 Units/mL. Current interpretive data was last revised on 2011. Blood specimen (specimen) 04/15/2017 11:45 PM CDT 04/16/2017 12:30 AM CDT us Notinfile Unknown LAB BLOOD ORDERABLES Final Res ult Performing Organization Address [facility] Co de Phone Number [facility] Department [place] [address] * (ABNORMAL) Hepatic function panel (04/15/2017 11:40 PM CDT) Pathologist [facility] AST 17 10 - 45 Units/L [facility] ALT 16 7 - 45 Units/L [facility] Alk phos 60 40 - 130 Units/L [facility] Bilirubin, total 0.4 0.1 - 1.2 mg/dL [facility] Bilirubin, direct <0.2 0.1 - 0.3 mg/dL [facility] Protein, pl 5.6(L) 6.5 - 8.5 g/dL [facility] Albumin 2.8(L) 3.5 - 5.0 g/dL [facility] Blood specimen (specimen) 04/15/2017 11:40 PM CDT 04/16/2017 12:29 AM CDT us Kole Ma MD LAB BLOOD ORDERABLES Final Result Performing Organization Address [facility]/ZIP Co de Phone Number [facility] Department [place] [address] * (ABNORMAL) Basic metabolic panel (04/15/2017 11:40 PM CDT) Sodium 135 135 - 145 mmol/L [facility] Potassium, pl 4.4 3.3 - 4.9 mmol/L [facility] Chloride 103 97 - 110 mmol/L [facility] CO2 25 22 - 32 mmol/L [facility] BUN 22 8 - 25 mg/dL [facility] Glucose 127 70 - 199 mg/dL [facility] Creatinine 1.09 0.60 - 1.10 mg/dL [facility] Calcium 7.9(L) 8.5 - 10.3 mg/dL [facility] Anion gap 7 2 - 15 mmol/L [facility] Blood specimen (specimen) 04/15/2017 11:40 PM CDT 04/16/2017 12:29 AM CDT Luis F Pérez MD LAB BLOOD ORDERABLES F inal Result [facility] Department [place] [address] * Differential, auto (04/15/2017 11:40 PM CDT) Pathologist [facility] Neutrophil pct 65.8 % [facility] Imm gran pct 0.3 % [facility] Lymphocyte pct 22.4 % [facility] Monocyte pct 8.9 % [facility] Eosinophil pct 2.4 % [facility] Basophil pct 0.2 % [facility] Neutrophil abs 4.09 1.70 - 6.50 K/cumm [facility] Imm gran abs 0.02 0.00 - 0.10 K/cumm [facility] Lymphocyte abs 1.39 0.80 - 3.30 K/cumm [facility] Monocyte abs 0.55 0.20 - 0.80 K/cumm [facility] Eosinophil abs 0.15 0.00 - 0.50 K/cumm [facility] Basophil abs 0.01 0.00 - 0.10 K/cumm [facility] Blood specimen (specimen) 04/15/2017 11:40 PM CDT 04/16/2017 12:29 AM CDT Luis F Pérez MD LAB BLOOD ORDERABLES F inal Result Performing Organization Address City/[facility]/ZIP Co de Phone Number [facility] [place] [address] * (ABNORMAL) CBC with auto differential (04/15/2017 11:40 PM CDT) WBC 6.21 3.80 - 9.90 K/cumm [facility] RBC 4.27 3.90 - 5.20 M/cumm [facility] Hgb 8.2(L) 11.9 - 15.5 g/dL [facility] Hct 26.8(L) 35.6 - 45.5 % [facility] MCV 62.8(L) 81.3 - 96.4 fL [facility] MCH 19.2(L) 27.1 - 33.3 pg [facility] MCHC 30.6(L) 32.3 - 35.7 g/dL [facility] RDW CV 15.2(H) 11.1 - 14.9 % [facility] RDW SD 33.6(L) 35.7 - 48.1 fL [facility] Plt 166 150 - 400 K/cumm [facility] MPV 10.6 9.1 - 12.3 fL [facility] NRBC 0.0 0.0 - 0.2 % [facility] NRBC abs 0.00 0.00 - 0.01 K/cumm [facility] Blood specimen (specimen) 04/15/2017 11:40 PM CDT 04/16/2017 12:29 AM CDT Luis F Pérez MD LAB BLOOD ORDERABLES F inal Result Performing Organization Address City/[facility] Co de Phone Number [facility] Department [place] [address] * (ABNORMAL) aPTT (04/15/2017 5:20 PM CDT) Pathologist [facility] aPTT 60.2(H) 25.0 - 37.0 sec [facility] Comment: Interpretive Data Therapeutic heparin range:60.0 - 94.0 sec based on correlation with therapeutic heparin activity range of 0.3 -0.7 Units/mL. Current interpretive data was last revised on 2011. Blood specimen (specimen) 04/15/2017 5:20 PM CDT 04/15/2017 6:13 PM CDT Notinfile Unknown LAB BLOOD ORDERABLES Final Res ult Performing Organization Address [facility] Co de Phone Number [facility] Department [place] [address] * Packed Red Blood Cells 2 (04/15/2017 3:44 PM CDT) [facility] RBC, Leukoreduced PROD_CD :E0336 -1 RED BLOOD CELLS, LEUKOCYTES REDUCED UNIT_ID :[id number] -7 ABORHP :A NEG PROD_STAT :RETURNED [facility] RBC, Leukoreduced PROD_CD :E0336 -1 RED BLOOD CELLS, LEUKOCYTES REDUCED UNIT_ID :[id number] -U ABORHP :A NEG PROD_STAT :RETURNED [facility] Blood specimen (specimen) 04/15/2017 3:44 PM CDT 04/15/2017 3:45 PM CDT Narrative [facility] - 04/15/2017 5:56 PM CDT Reason:Prepare product for intraoperative transfusion José Miguel Olivera LAB BLOOD ORDERABLES Edited Resu lt - Final Performing Organization Address [facility] de Phone Number [facility] Department [place] [address] * (ABNORMAL) aPTT (04/15/2017 9:37 AM CDT) [facility] aPTT 54.3(H) 25.0 - 37.0 sec [facility] Comment: Interpretive Data Therapeutic heparin range:60.0 - 94.0 sec based on correlation with therapeutic heparin activity range of 0.3 -0.7 Units/mL. Current interpretive data was last revised on 2011. Blood specimen (specimen) 04/15/2017 9:37 AM CDT 04/15/2017 10:36 AM CDT us Notinfile Unknown LAB BLOOD ORDERABLES Final Res ult [facility] [place] [address] * Differential, auto (04/15/2017 6:47 AM CDT) Neutrophil pct 63.9 % [facility] Imm gran pct 0.2 % [facility] Lymphocyte pct 26.9 % [facility] Monocyte pct 7.3 % [facility] Eosinophil pct 1.4 % [facility] Basophil pct 0.3 % [facility] Neutrophil abs 4.02 1.70 - 6.50 K/cumm [facility] Imm gran abs 0.01 0.00 - 0.10 K/cumm [facility] Lymphocyte abs 1.69 0.80 - 3.30 K/cumm [facility] Monocyte abs 0.46 0.20 - 0.80 K/cumm [facility] Eosinophil abs 0.09 0.00 - 0.50 K/cumm [facility] Basophil abs 0.02 0.00 - 0.10 K/cumm [facility] Blood specimen (specimen) 04/15/2017 6:47 AM CDT 04/15/2017 7:54 AM CDT us Notinfile Unknown LAB BLOOD ORDERABLES Final Res ult [facility] [place] [address] * (ABNORMAL) CBC with auto differential (04/15/2017 6:47 AM CDT) WBC 6.29 3.80 - 9.90 K/cumm [facility] RBC 5.00 3.90 - 5.20 M/cumm [facility] Hgb 9.6(L) 11.9 - 15.5 g/dL [facility] Hct 31.8(L) 35.6 - 45.5 % [facility] MCV 63.6(L) 81.3 - 96.4 fL [facility] MCH 19.2(L) 27.1 - 33.3 pg [facility] MCHC 30.2(L) 32.3 - 35.7 g/dL [facility] RDW CV 15.6(H) 11.1 - 14.9 % [facility] RDW SD 35.0(L) 35.7 - 48.1 fL [facility] Plt 159 150 - 400 K/cumm [facility] MPV 11.2 9.1 - 12.3 fL [facility] NRBC 0.0 0.0 - 0.2 % [facility] NRBC abs 0.00 0.00 - 0.01 K/cumm [facility] Blood specimen (specimen) 04/15/2017 6:47 AM CDT 04/15/2017 7:54 AM CDT us Notinfile Unknown LAB BLOOD ORDERABLES Edited Re tammiet - Final [facility] Department [place] [address] * (ABNORMAL) Basic metabolic panel (04/15/2017 6:47 AM CDT) Pathologist [facility] Sodium 136 135 - 145 mmol/L [facility] Potassium, pl 4.4 3.3 - 4.9 mmol/L [facility] Chloride 102 97 - 110 mmol/L [facility] CO2 26 22 - 32 mmol/L [facility] BUN 25 8 - 25 mg/dL [facility] Glucose 95 70 - 199 mg/dL [facility] Creatinine 1.03 0.60 - 1.10 mg/dL [facility] Calcium 8.4(L) 8.5 - 10.3 mg/dL [facility] Anion gap 8 2 - 15 mmol/L [facility] Blood specimen (specimen) 04/15/2017 6:47 AM CDT 04/15/2017 7:54 AM CDT us Notinfile Unknown LAB BLOOD ORDERABLES Final Res ult Performing Organization Address [facility] Co de Phone Number [facility] Department [place] [address] * (ABNORMAL) Protime-INR (04/15/2017 2:01 AM CDT) [facility] PT 15.4(H) 9.2 - 14.0 sec [facility] INR 1.34(H) 0.81 - 1.22 [facility] Comment: Interpretive Data Inpatient therapeutic ranges* Atrial fibrillation ?2.0-3.0 INR Venous thrombo-embolism ?2.0-3.0 INR Bioprosthetic heart valve ?* Mechanical heart valve, bileaflet or tilting disk,aortic position ? 2.0-3.0 INR All other,or bileaflet or tilting disk, in mitral position ? 2.5-3.5 INR *See the pharmacy resource directory (PHRED) for an updated copy of the Tool Book at [email or web address]/bjc/pharmacy.nsf Current Interpretive Data was last revised 2012. Blood specimen (specimen) 04/15/2017 2:01 AM CDT 04/15/2017 2:37 AM CDT us Notinfile Unknown LAB BLOOD ORDERABLES Final Res ult Performing Organization Address [facility] Co de Phone Number [facility] Department [place] [address] * aPTT (04/15/2017 2:01 AM CDT) aPTT 36.5 25.0 - 37.0 sec [facility] Comment: Interpretive Data Therapeutic heparin range:60.0 - 94.0 sec based on correlation with therapeutic heparin activity range of 0.3 -0.7 Units/mL. Current interpretive data was last revised on 2011. Blood specimen (specimen) 04/15/2017 2:01 AM CDT 04/15/2017 2:37 AM CDT us Notinfile Unknown LAB BLOOD ORDERABLES Final Res ult [facility] Department [place] [address] * Insert VC Filter (04/14/2017 5:35 PM CDT) Anatomical Region Laterality Modality Body N/A X-Ray Angiograph y 04/14/2017 5:35 PM CDT Narrative 04/14/2017 5:35 PM CDT DYAN MARQUES M.D. DESHAWN GENTILE M.D. FINAL REPORT The radiology attending physician has personally reviewed this study, and has reviewed and/or edited this written report and agrees with it. ACC# ??Date Time ??Exam [id number] Apr 14, 2017 12:35:00 [id number] Ins VenaCava Filter wImage EXAMINATION: ?INFERIOR VENA CAVAGRAM AND INFERIOR VENA CAVA FILTER PLACEMENT HISTORY/INDICATION: ??Acute right popliteal DVT. Patient has an infected right knee which she is going to the OR for immediately following this case, and thus cannot get anticoagulation. ATTENDING PRESENCE: Dr. Marques, the attending radiologist, was present from the beginning to the end of the procedure. SEDATION: Conscious sedation was administered under the attending physician's direction and continuous monitoring by a trained nurse specialist who was independent from those actually performing the procedure. ??Total monitored sedation time was 30 minutes. TECHNIQUE: ??The risks, benefits and alternatives were discussed and informed consent was obtained. Prior to beginning the procedure, [place] Protocol was performed to confirm the patient's identity and the planned procedure. ??The fluoroscopy time has been recorded in the electronic medical record. ??Maximum sterile barriers including cap, mask, hand hygiene, sterile gloves, sterile gown, large sterile drape and 2% chlorhexidine for cutaneous antisepsis were used. Prior to the procedure, the central veins were evaluated by ultrasound. The recorded image shows a patent vessel. The skin over the right internal jugular vein was infiltrated with 1% lidocaine. This vein was then accessed using realtime ultrasound guidance and a guidewire passed centrally with fluoroscopic monitoring. A catheter was advanced to the confluence of the IVC and iliac veins using fluoroscopic guidance. DSA images of the inferior vena cava were recorded during contrast injection. The catheter was then positioned within the infrarenal IVC and exchanged for the filter delivery sheath. An Option Elite retrievable filter was deployed in the infrarenal IVC. A completion venogram was obtained. At the end of the procedure, the sheath was removed and pressure held until hemostasis was achieved. ESTIMATED BLOOD LOSS: Minimal CONDITION: Stable condition DISCHARGED TO: Recovery and then to inpatient unit. ? FINDINGS: Images of the IVC show no thrombus or anomaly. ??Post-placement spot image demonstrates the filter to be in an infrarenal position. ??No complications are identified. IMPRESSION: ?? Successful placement of a filter in the infrarenal cava. PLAN: A retrievable filter has been placed. ??If clinically indicated, the filter may be retrieved when the patient is appropriately anti-coagulated. ??In order to schedule filter removal please call [phone]. ??This filter can also be left in place as a permanent IVC filter if appropriate. Requested By: JOSÉ MIGEUL OLIVERA [facility] CENTERTracee Dictated By: ?? DESHAWN GENTILE M.D. ??on Apr 14 2017 ??1:12P This document has been electronically signed by: DYAN MARQUES M.D. on Apr 15 2017 12:14P [id number] Procedure Note Miscellaneous, Not In File / Provider, MD Clifford - 04/15/2017 DYAN MARQUES M.D. DESHAWN GENTILE M.D. FINAL REPORT The radiology attending physician has personally reviewed this study, and has reviewed and/or edited this written report and agrees with it. ACC# Date Time Exam [id number] Apr 14, 2017 12:35:00 [id number] Ins VenaCava Filter wImage EXAMINATION: INFERIOR VENA CAVAGRAM AND INFERIOR VENA CAVA FILTER PLACEMENT HISTORY/INDICATION: Acute right popliteal DVT. Patient has an infected right knee which she is going to the OR for immediately following this case, and thus cannot get anticoagulation. ATTENDING PRESENCE: Dr. Marques, the attending radiologist, was present from the beginning to the end of the procedure. SEDATION: Conscious sedation was administered under the attending physician's direction and continuous monitoring by a trained nurse specialist who was independent from those actually performing the procedure. Total monitored sedation time was 30 minutes. TECHNIQUE: The risks, benefits and alternatives were discussed and informed consent was obtained. Prior to beginning the procedure, [place] Protocol was performed to confirm the patient's [...] recorded image shows a patent vessel. The skin over the right internal jugular vein was infiltrated with 1% lidocaine. This vein was then accessed using realtime ultrasound guidance and a guidewire passed centrally with fluoroscopic monitoring. A catheter was advanced to the confluence of the IVC and iliac veins using fluoroscopic guidance. DSA images of the inferior vena cava were recorded during contrast injection. The catheter was then positioned within the infrarenal IVC and exchanged for the filter delivery sheath. An Option Elite retrievable filter was deployed in the infrarenal IVC. A completion venogram was obtained. At the end of the procedure, the sheath was removed and pressure held until hemostasis was achieved. ESTIMATED BLOOD LOSS: Minimal CONDITION: Stable condition DISCHARGED TO: Recovery and then to inpatient unit. FINDINGS: Images of the IVC show no thrombus or anomaly. Post-placement spot image demonstrates the filter to be in an infrarenal position. No complications are identified. IMPRESSION: Successful placement of a filter in the infrarenal cava. PLAN: A retrievable filter has been placed. If clinically indicated, the filter may be retrieved when the patient is appropriately anti-coagulated. In order to schedule filter removal please call [phone]. This filter can also be left in place as a permanent IVC filter if appropriate. Requested By: JOSÉ MIGUEL OLIVERA Dictated By: DESHAWN GENTILE M.D. on Apr 14 2017 1:12P This document has been electronically signed by: DYAN MARQUES M.D. on Apr 15 2017 12:14P [id number] Not In File Miscellaneous IMG IR PROCEDURES Ashley l Result * Mycobacteriology (AFB) culture (04/14/2017 1:56 PM CDT) Report Final Report: No growth of acid-fast bacilli [facility] Tissue (Knee, right) 04/14/2017 1:56 PM CDT 04/14/2017 5:17 PM CDT Narrative [facility] - 04/16/2017 7:35 AM CDT Specimen collected in the operating room. superior synovium us Lorena Etienne MD LAB MICROBIOLOGY - G ENERAL ORDERABLES Final Result Performing Organization Address City/[facility]/ZIP Co de Phone Number [facility] Department [place] [place] [address] * Mycology culture (04/14/2017 1:56 PM CDT) Report Final Report: No growth of fungus [facility] Tissue (Knee, right) 04/14/2017 1:56 PM CDT 04/14/2017 5:16 PM CDT Narrative [facility] - 04/15/2017 9:59 AM CDT Specimen collected in the operating room. superior synovium us Lorena Etienne MD LAB MICROBIOLOGY - G ENERAL ORDERABLES Final Result [facility] Department [place] [address] * Aerobic and anaerobic culture and gram stain (04/14/2017 1:56 PM CDT) Direct Specimen Exam Stain: No polymorphonuclear leukocytes seen. No organisms seen. [facility] Report Final Report: Rare Staphylococcus epidermidis [facility] Organism STAPHYLOCOCCUS EPIDERMIDIS [facility] Tissue (Knee, right) 04/14/2017 1:56 PM CDT 04/14/2017 5:15 PM CDT Narrative [facility] - 04/15/2017 7:47 AM CDT Specimen collected in the operating room. superior synovium Specimens submitted from normally sterile body sites [...] interpretive data was last revised on 2013. Organism Antibiotic Method Susceptibility Staphylococcus epidermidis Doxycycline (ABRAHAN) INTERPRETATION Susceptible Staphylococcus epidermidis Linezolid (ABRAHAN) INTERPRETATION Susceptible Staphylococcus epidermidis Trimethoprim with Sulfamethoxazole (ABRAHAN) INTERPRETATION Susceptible Staphylococcus epidermidis Clindamycin (ABRAAHN) INTERPRETATION Susceptible Staphylococcus epidermidis Erythromycin (ABRAHAN) INTERPRETATION Susceptible Staphylococcus epidermidis Vancomycin (ABRAHAN) INTERPRETATION Susceptible Staphylococcus epidermidis Oxacillin (ABRAHAN) INTERPRETATION Susceptible Staphylococcus epidermidis Cefazolin (ABRAHAN) INTERPRETATION Susceptible Staphylococcus epidermidis Ceftriaxone (ABRAHAN) INTERPRETATION Susceptible Lorena Etienne MD LAB MICROBIOLOGY - [facility] ORDERABLES Final Result [facility] Department [place] [address] * Mycobacteriology (AFB) culture (04/14/2017 1:52 PM CDT) Report Final Report: No growth of acid-fast bacilli [facility] Tissue (Knee, right) 04/14/2017 1:52 PM CDT 04/14/2017 5:14 PM CDT Narrative [facility] - 04/16/2017 7:35 AM CDT Specimen collected in the operating room. fat pad Lorena Etienne MD LAB MICROBIOLOGY - G ENERAL ORDERABLES Final Result Performing Organization Address City/[facility]/ZIP Co de Phone Number [facility] [place] [address] * Mycology culture (04/14/2017 1:52 PM CDT) Report Final Report: No growth of fungus [facility] Tissue (Knee, right) 04/14/2017 1:52 PM CDT 04/14/2017 5:13 PM CDT Narrative [facility] - 04/15/2017 9:59 AM CDT Specimen collected in the operating room. fat pad Lorena Etienne MD LAB MICROBIOLOGY - G ENERAL ORDERABLES Final Result Performing Organization Address [facility] Co de Phone Number [facility] [place] [address] * Aerobic and anaerobic culture and gram stain (04/14/2017 1:52 PM CDT) Direct Specimen Exam Stain: No polymorphonuclear leukocytes seen. No organisms seen. [facility] Report Final Report: No growth [facility] Tissue (Knee, right) 04/14/2017 1:52 PM CDT 04/14/2017 5:13 PM CDT Narrative [facility] - 04/15/2017 7:47 AM CDT Specimen collected in the operating room. fat pad Specimens submitted from normally sterile body sites [...] ENERAL ORDERABLES Final Result Performing Organization Address City/[facility] [place] [address] * Mycobacteriology (AFB) culture (04/14/2017 1:47 PM CDT) Report Final Report: No growth of acid-fast bacilli [facility] Tissue (Knee, right) 04/14/2017 1:47 PM CDT 04/14/2017 5:20 PM CDT Narrative [facility] - 04/16/2017 7:34 AM CDT Specimen collected in the operating room. medial synovium us Lorena Etienne MD LAB MICROBIOLOGY - G ENERAL ORDERABLES Final Result Performing Organization Address [facility] [place] [address] * Mycology culture (04/14/2017 1:47 PM CDT) Report Final Report: No growth of fungus [facility] Tissue (Knee, right) 04/14/2017 1:47 PM CDT 04/14/2017 5:20 PM CDT [facility]ative [facility] - 04/15/2017 9:59 AM CDT Specimen collected in the operating room. medial synovium us Lorena Etienne MD LAB MICROBIOLOGY - G ENERAL ORDERABLES Final Result Performing Organization Address [facility] [place] [address] * Aerobic and anaerobic culture and gram stain (04/14/2017 1:47 PM CDT) Direct Specimen Exam Stain: No polymorphonuclear leukocytes seen. No organisms seen. [facility] Report Final Report: No growth [facility] Tissue (Knee, right) 04/14/2017 1:47 PM CDT 04/14/2017 5:19 PM CDT Narrative [facility] - 04/15/2017 7:47 AM CDT Specimen collected in the operating room. medial synovium Specimens submitted from normally sterile body sites [...] interpretive data was last revised on 2013. us Lorena Etienne MD LAB MICROBIOLOGY - G ENERAL ORDERABLES Final Result Performing Organization Address [facility]/ZIP Co de Phone Number [facility] Department [place] [address] * Packed Red Blood Cells 2 (04/14/2017 9:32 AM CDT) Pathologist [facility] RBC, Leukoreduced PROD_CD :E0336 -1 RED BLOOD CELLS, LEUKOCYTES REDUCED UNIT_ID :[id number] -Y ABORHP :A POS PROD_STAT :RETURNED [facility] RBC, Leukoreduced PROD_CD :E0336 -1 RED BLOOD CELLS, LEUKOCYTES REDUCED UNIT_ID :[id number] -2 ABORHP :A POS PROD_STAT :RETURNED [facility] Blood specimen (specimen) 04/14/2017 9:32 AM CDT 04/14/2017 9:32 AM CDT Narrative [facility] - 04/14/2017 10:24 AM CDT Reason:Prepare product for intraoperative transfusion us José Miguel Olivera LAB BLOOD ORDERABLES Edited Resu lt - Final Performing Organization Address [facility]/ZIP Co de Phone Number [facility] Department [place] [address] * (ABNORMAL) Protime-INR (04/14/2017 6:32 AM CDT) PT 18.2(H) 9.2 - 14.0 sec [facility] INR 1.58(H) 0.81 - 1.22 [facility] Comment: Interpretive Data Inpatient therapeutic ranges* Atrial fibrillation ?2.0-3.0 INR Venous thrombo-embolism ?2.0-3.0 INR Bioprosthetic heart valve ?* Mechanical heart valve, bileaflet or tilting disk,aortic position ? 2.0-3.0 INR All other,or bileaflet or tilting disk, in mitral position ? 2.5-3.5 INR *See the pharmacy resource directory (PHRED) for an updated copy of the Tool Book at [email or web address] [email or web address]/bjc/pharmacy.nsf Current Interpretive Data was last revised 2012. Blood specimen (specimen) 04/14/2017 6:32 AM CDT 04/14/2017 7:53 AM CDT us Notinfile Unknown LAB BLOOD ORDERABLES Final Res ult [facility] Department [place] [address] * (ABNORMAL) aPTT (04/14/2017 6:32 AM CDT) aPTT 47.2(H) 25.0 - 37.0 sec [facility] Comment: Interpretive Data Therapeutic heparin range:60.0 - 94.0 sec based on correlation with therapeutic heparin activity range of 0.3 -0.7 Units/mL. Current interpretive data was last revised on 2011. Blood specimen (specimen) 04/14/2017 6:32 AM CDT 04/14/2017 7:53 AM CDT us Notinfile Unknown LAB BLOOD ORDERABLES Final Res ult [facility] [place] [address] * Antibody identification (04/14/2017 5:01 AM CDT) Antibody ID 2 Anti-E [facility] Antibody ID 1 Antibody of Undetermined Specificity [facility] Blood specimen (specimen) 04/14/2017 5:01 AM CDT 04/14/2017 5:01 AM CDT us Notinfile Unknown LAB BLOOD BANK TEST ORDERABLES Final Result Performing Organization Address City/[facility] Co de Phone Number [facility] Department [place] [address] * Blood culture (04/13/2017 11:11 PM CDT) Report Final Report: No growth [facility] Blood specimen (specimen) (Antecubital, right) 04/13/2017 11:11 PM CDT 04/14/2017 12:46 AM CDT Narrative [facility] - 04/15/2017 1:38 AM CDT Blood cultures are incubated for five days on a continuously monitored blood culture system. ??The first report of a negative culture is issued within 24 hours of receipt of the specimen in the laboratory. ??Positive culture results are reported as soon as they are detected. ??For blood cultures with gram-positive cocci, a rapid molecular test for organism identification may be performed using the [employer] Nanosphere Gram Positive Blood Culture Assay. ??The Nanosphere assay detects microbial DNA in positive blood culture broth via hybridization of target DNA to capture oligonucleotides on a microarray. ??This assay has been cleared by the [place] Food and Drug Administration and its performance characteristics have been verified by the [facility]. Current Interpretive Data was last revised on 2014. Cortney Hobson MD PhD LAB MICROBIOLOGY - GENERAL OR DERABLES Final Result Performing Organization Address [facility] Co de Phone Number [facility] Department [place] [address] * Blood culture (04/13/2017 11:11 PM CDT) Report Final Report: No growth [facility] Blood specimen (specimen) (Forearm, left) 04/13/2017 11:11 PM CDT 04/14/2017 12:46 AM CDT Narrative [facility] - 04/15/2017 1:38 AM CDT Blood cultures are incubated for five days on a continuously monitored blood culture system. ??The first report of a negative culture is issued within 24 hours of receipt of the specimen in the laboratory. ??Positive culture results are reported as soon as they are detected. ??For blood cultures with gram-positive cocci, a rapid molecular test for organism identification may be performed using the [employer] Nanosphere Gram Positive Blood Culture Assay. ??The Nanosphere assay detects microbial DNA in positive blood culture broth via hybridization of target DNA to capture oligonucleotides on a microarray. ??This assay has been cleared by the [place] Food and Drug Administration and its performance characteristics have been verified by the [facility]. Current Interpretive Data was last revised on 2014. Cortney Hobson MD PhD LAB MICROBIOLOGY - GENERAL OR DERABLES Final Result Performing Organization Address [facility] Co de Phone Number [facility] Department [place] [address] * Hemoglobin A1c (04/13/2017 11:11 PM CDT) Hgb A1C 4.9 4.0 - 6.0 % [facility] Estimated Average Glucose 94 mg/dL [facility] Comment: The ADA recommends reporting an estimated Average Glucose (eAG) with all Hemoglobin A1c results using the equation derived from a study of 507 normal and diabetic adults. ??Minority populations were underrepresented and children were not included. ?? (Diabetes Care 31:2694-3714, 2008). ??The eAG is not equivalent to a fasting glucose. Blood specimen (specimen) 04/13/2017 11:11 PM CDT 04/13/2017 11:58 PM CDT us Notinfile Unknown LAB BLOOD ORDERABLES Edited Re sult - Final [facility] Department [place] [address] * Lipid panel (04/13/2017 11:11 PM CDT) Cholesterol 133 30 - 200 mg/dL [facility] Comment: Interpretive Data Desirable: ?<200 mg/dL Borderline high: ??200-239 mg/dL High: ? > or = 240 mg/dL Literature Reference: National Cholesterol Education Program (NCEP) Expert Panel on Detection, Evaluation, and Treatment of High Blood Cholesterol in Adults (Adult Treatment Panel III). ??Circulation 2004; 110:227. Current interpretive data was last revised on 2015. Triglycerides 116 0 - 150 mg/dL [facility] Comment: Interpretive Data Desirable: ? < 150 mg/dL Borderline High: ? 150 - 199 mg/dL High: ?200 - 499 mg/dL Very High: ? > or = 499 mg/dL Literature Reference: See Cholesterol Current interpretive data was last revised on 2015. HDL 43 >=40 mg/dL [facility] Comment: Interpretive Data Less than 40 mg/dL - low; A major risk factor for heart disease. Greater than or equal to 60 mg/dL - High; ??considered protective of heart disease. Literature Reference: See Cholesterol Current interpretive data was last revised on 2015. LDL, calculated 67 10 - 129 mg/dL [facility] Comment: Interpretive Data Optimal: ? < 100 mg/dL Near Optimal: ?100 - 129 mg/dL Borderline High: ?? 130 - 159 mg/dL High: ?160 - 189 mg/dL Very high: ? > or = 190 mg/dL Literature Reference: See Cholesterol Current interpretive data was last revised on 2015. Non-HDL Cholesterol 90 mg/dL [facility] Comment: Interpretive Data When triglycerides are >200 mg/dL, non-HDL C is a secondary target of therapy, with a goal 30 mg/dL higher than the identified LDL-C goal. Reference: ??See Cholesterol Reference. Current interpretive data was last revised 2015. Blood specimen (specimen) 04/13/2017 11:11 PM CDT 04/13/2017 11:52 PM CDT Notinfile Unknown LAB BLOOD ORDERABLES Final Res ult Performing Organization Address [facility] Co de Phone Number [facility] Department [place] [address] * B E Antigen Type (04/13/2017 11:11 PM CDT) [facility] RBC phenotyping, E ag Negative [facility] Blood specimen (specimen) 04/13/2017 11:11 PM CDT 04/13/2017 11:45 PM CDT Notinfile Unknown LAB BLOOD ORDERABLES Final Res ult Performing Organization Address [facility] de Phone Number [facility] [place] [address] * (ABNORMAL) Basic metabolic panel (04/13/2017 11:11 PM CDT) Pathologist [facility] Sodium 133(L) 135 - 145 mmol/L [facility] Potassium, pl 3.8 3.3 - 4.9 mmol/L [facility] Chloride 98 97 - 110 mmol/L [facility] CO2 24 22 - 32 mmol/L [facility] BUN 28(H) 8 - 25 mg/dL [facility] Glucose 226(H) 70 - 199 mg/dL [facility] Creatinine 1.07 0.60 - 1.10 mg/dL [facility] Calcium 9.0 8.5 - 10.3 mg/dL [facility] Anion gap 12 2 - 15 mmol/L [facility] Blood specimen (specimen) 04/13/2017 11:11 PM CDT 04/13/2017 11:52 PM CDT Notinfile Unknown LAB BLOOD ORDERABLES Final Res ult Performing Organization Address [facility] de Phone Number [facility] [place] [address] * (ABNORMAL) aPTT (04/13/2017 11:11 PM CDT) aPTT 37.4(H) 25.0 - 37.0 sec [facility] Comment: Interpretive Data Therapeutic heparin range:60.0 - 94.0 sec based on correlation with therapeutic heparin activity range of 0.3 -0.7 Units/mL. Current interpretive data was last revised on 2011. Blood specimen (specimen) 04/13/2017 11:11 PM CDT 04/13/2017 11:49 PM CDT Notinfile Unknown LAB BLOOD ORDERABLES Final Res ult Performing Organization Address [facility] Co de Phone Number [facility] [place] [address] * (ABNORMAL) Protime-INR (04/13/2017 11:11 PM CDT) PT 22.5(H) 9.2 - 14.0 sec [facility] INR 1.95(H) 0.81 - 1.22 [facility] Comment: Interpretive Data Inpatient therapeutic ranges* Atrial fibrillation ?2.0-3.0 INR Venous thrombo-embolism ?2.0-3.0 INR Bioprosthetic heart valve ?* Mechanical heart valve, bileaflet or tilting disk,aortic position ? 2.0-3.0 INR All other,or bileaflet or tilting disk, in mitral position ? 2.5-3.5 INR *See the pharmacy resource directory (PHRED) for an updated copy of the Tool Book at [email or web address] Current Interpretive Data was last revised 2012. Blood specimen (specimen) 04/13/2017 11:11 PM CDT 04/13/2017 11:49 PM CDT us Notinfile Unknown LAB BLOOD ORDERABLES Final Res ult [facility] Department [place] [address] * (ABNORMAL) CBC without differential (04/13/2017 11:11 PM CDT) WBC 9.52 3.80 - 9.90 K/cumm [facility] RBC 5.41(H) 3.90 - 5.20 M/cumm [facility] Hgb 10.7(L) 11.9 - 15.5 g/dL [facility] Hct 33.6(L) 35.6 - 45.5 % [facility] MCV 62.1(L) 81.3 - 96.4 fL [facility] MCH 19.8(L) 27.1 - 33.3 pg [facility] MCHC 31.8(L) 32.3 - 35.7 g/dL [facility] RDW CV 15.8(H) 11.1 - 14.9 % [facility] RDW SD 33.9(L) 35.7 - 48.1 fL [facility] NRBC 0.0 0.0 - 0.2 % [facility] NRBC abs 0.00 0.00 - 0.01 K/cumm [facility] Plt 197 150 - 400 K/cumm [facility] MPV 11.0 9.1 - 12.3 fL [facility] Blood specimen (specimen) 04/13/2017 11:11 PM CDT 04/13/2017 11:52 PM CDT us Notinfile Unknown LAB BLOOD ORDERABLES Final Res ult [facility] Department [place] [address] * XR Chest Pa Lateral 2 Views (04/13/2017 8:20 PM CDT) Anatomical Region Laterality Modality Body, Chest N/A Radiographic Zhane ging 04/13/2017 8:20 PM CDT Narrative 04/13/2017 8:20 PM CDT NICHOLAS HAAS M.D. KELLY CAREY M.D. FINAL REPORT The radiology attending physician has personally reviewed this study, and has reviewed and/or edited this written report and agrees with it. ACC# ??Date Time ??Exam [id number] Apr 13, 2017 15:20:00 [id number] Knee 1 or 2 views R [id number] Apr 13, 2017 15:20:00 [id number] Chest 2 views Frontl ??and ??Lat EXAMINATION: ? 1. CHEST 2 VIEWS frontal and lateral 2. 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 Chest 2 views: Two views of the chest are submitted for interpretation without comparison. The lungs are clear with no pneumothorax, pleural effusion, pulmonary edema, or focal consolidation. The cardiomediastinal silhouette is within normal limits. An old clavicular fracture is present. Right knee: There is a right total knee arthroplasty with the components in the expected location and without complication. There is a small joint effusion. IMPRESSION: ?? 1. Total knee arthroplasty without complication and small knee effusion. 2. Clear lungs. Requested By: GERA SALDAÑA M.D. Dictated By: ?? KELLY CAREY M.D. ??on Apr 13 2017 ??4:49P This document has been electronically signed by: NICHOLAS HAAS M.D. on Apr 13 2017 ??4:52P [id number] Procedure Note Miscellaneous, Not In File / Provider, MD Clifford - 04/13/2017 NICHOLAS HAAS M.D. KELLY CAREY M.D. FINAL REPORT The radiology attending physician has personally reviewed this study, and has reviewed and/or edited this written report and agrees with it. ACC# Date Time Exam [id number] Apr 13, 2017 15:20:00 69220 Knee 1 or 2 views R [id number] Apr 13, 2017 15:20:00 80712 Chest 2 views Frontl and Lat EXAMINATION: 1. CHEST 2 VIEWS frontal and lateral 2. 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 The lungs are clear with no pneumothorax, pleural effusion, pulmonary edema, or focal consolidation. The cardiomediastinal silhouette is within normal limits. An old clavicular fracture is present. Right knee: There is a right total knee arthroplasty with the components in the expected location and without complication. There is a small joint effusion. IMPRESSION: 1. Total knee arthroplasty without complication and small knee effusion. 2. Clear lungs. Requested By: GERA SALDAÑA M.D. Dictated By: KELLY CAREY M.D. on Apr 13 2017 4:49P This document has been electronically signed by: NICHOLAS HAAS M.D. on Apr 13 2017 4:52P [id number] us Not In File Miscellaneous IMG XR PROCEDURES Ashley l Result * XR Knee 1 Or 2 VW (04/13/2017 8:20 PM CDT) Anatomical Region Laterality Modality N/A Radiographic Zhane ging 04/13/2017 8:20 PM CDT Narrative 04/13/2017 8:20 PM CDT NICHOLAS HAAS M.D. KELLY CAREY M.D. FINAL REPORT The radiology attending physician has personally reviewed this study, and has reviewed and/or edited this written report and agrees with it. ACC# ??Date Time ??Exam [id number] Apr 13, 2017 15:20:00 82550 Knee 1 or 2 views R [id number] Apr 13, 2017 15:20:00 61507 Chest 2 views Frontl ??and ??Lat EXAMINATION: ? 1. CHEST 2 VIEWS frontal and lateral 2. 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 Chest 2 views: Two views of the chest are submitted for interpretation without comparison. The lungs are clear with no pneumothorax, pleural effusion, pulmonary edema, or focal consolidation. The cardiomediastinal silhouette is within normal limits. An old clavicular fracture is present. Right knee: There is a right total knee arthroplasty with the components in the expected location and without complication. There is a small joint effusion. IMPRESSION: ?? 1. Total knee arthroplasty without complication and small knee effusion. 2. Clear lungs. Requested By: GEAR SALDAÑA M.D. Dictated By: ?? KELLY CAREY M.D. ??on Apr 13 2017 ??4:49P This document has been electronically signed by: NICHOLAS HAAS M.D. on Apr 13 2017 ??4:52P [id number] Procedure Note Miscellaneous, Not In File / Provider, MD Clifford - 04/13/2017 NICHOLAS HAAS M.D. KELLY CAREY M.D. FINAL REPORT The radiology attending physician has personally reviewed this study, and has reviewed and/or edited this written report and agrees with it. ACC# Date Time Exam [id number] Apr 13, 2017 15:20:00 21013 Knee 1 or 2 views R [id number] Apr 13, 2017 15:20:00 43501 Chest 2 views Frontl and Lat EXAMINATION: 1. CHEST 2 VIEWS frontal and lateral 2. 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 The lungs are clear with no pneumothorax, pleural effusion, pulmonary edema, or focal consolidation. The cardiomediastinal silhouette is within normal limits. An old clavicular fracture is present. Right knee: There is a right total knee arthroplasty with the components in the expected location and without complication. There is a small joint effusion. IMPRESSION: 1. Total knee arthroplasty without complication and small knee effusion. 2. Clear lungs. Requested By: GERA SALDAÑA M.D. Dictated By: KELLY CAREY M.D. on Apr 13 2017 4:49P This document has been electronically signed by: NICHOLAS HAAS M.D. on Apr 13 2017 4:52P [id number] us Not In File Miscellaneous IMG XR PROCEDURES Ashley l Result * Mycobacteriology (AFB) culture (04/13/2017 4:18 PM CDT) Report Final Report: No growth of acid-fast bacilli [facility] Synovial fluid (Knee, right) 04/13/2017 4:18 PM CDT 04/13/2017 4:33 PM CDT [facility]ative [facility] - 04/15/2017 7:20 AM CDT us Gera Saldaña MD LAB MICROBIOLOGY - [facility] AL ORDERABLES Final Result [facility] Department [place] [address] * Mycology culture and stain (04/13/2017 4:18 PM CDT) Direct Specimen Exam Stain: No Fungal elements seen. [facility] Report Final Report: No growth of fungus [facility] Synovial fluid (Knee, right) 04/13/2017 4:18 PM CDT 04/13/2017 4:34 PM CDT Narrative [facility] - 04/14/2017 8:14 AM CDT Gera Saldaña MD LAB MICROBIOLOGY - GENER AL ORDERABLES Final Result Performing Organization Address City/[facility]/ZIP Co de Phone Number [facility] Department [place] [address] * Body fluid aerobic and anaerobic culture and gram stain (04/13/2017 4:18 PM CDT) Direct Specimen Exam Stain: Cytospin gram stain shows: Abundant polymorphonuclear leukocytes seen. No organisms seen. red blood cells [facility] Report Final Report: Growth in broth only Staphylococcus epidermidis [facility] Organism STAPHYLOCOCCUS EPIDERMIDIS [facility] Synovial fluid (Knee, right) 04/13/2017 4:18 PM CDT 04/13/2017 4:33 PM CDT [facility] 04/14/2017 6:10 AM CDT Specimens submitted from normally sterile body sites will have all bacterial morphotypes identified. ??Specimens that contain grossly mixed madi and/or are from body sites that are not normally sterile will be examined for Staphylococcus aureus, Pseudomonas aeruginosa, beta-hemolytic strep, vancomycin-resistant Enterococcus, Bacteroides fragilis, Clostridium perfringens and fungus. ??If any of these are isolated, the organism will be reported. Current interpretive data was last revised on 2013. Organism Antibiotic Method Susceptibility Staphylococcus epidermidis Doxycycline (ABRAHAN) INTERPRETATION Susceptible Staphylococcus epidermidis Linezolid (ABRAHAN) INTERPRETATION Susceptible Staphylococcus epidermidis Trimethoprim with Sulfamethoxazole (ABRAHAN) INTERPRETATION Susceptible Staphylococcus epidermidis Clindamycin (ABRAHAN) INTERPRETATION Susceptible Staphylococcus epidermidis Erythromycin (ABRAHAN) INTERPRETATION Susceptible Staphylococcus epidermidis Vancomycin (ABRAHAN) INTERPRETATION Susceptible Staphylococcus epidermidis Oxacillin (ABRAHAN) INTERPRETATION Susceptible Staphylococcus epidermidis Cefazolin (ABRAHAN) INTERPRETATION Susceptible Staphylococcus epidermidis Ceftriaxone (ABRAHAN) INTERPRETATION Susceptible Gera Saldaña MD LAB MICROBIOLOGY - GENER AL ORDERABLES Final Result Performing Organization Address City/[facility] Co de Phone Number [facility] [place] [address] * Crystal analysis, body fluid (04/13/2017 4:18 PM CDT) Specimen type, fld Synovial [facility] Crystals None Seen None Seen [facility] Body fluid 04/13/2017 4:18 PM CDT 04/13/2017 4:42 PM CDT us Gera Saldaña MD LAB BODY FLUIDS AND STOO LS ORDERABLES Final Result Performing Organization Address [facility] Co de Phone Number [facility] [place] [address] * Fluid reference range (04/13/2017 4:18 PM CDT) [facility] Reference range disclaimer [facility] has no established reference ranges for this fluid type. [facility] Body fluid 04/13/2017 4:18 PM CDT 04/13/2017 4:42 PM CDT Gera Saldaña MD LAB BODY FLUIDS AND STOO LS ORDERABLES Final Result Performing Organization Address [facility] Co de Phone Number [facility] [place] [address] * Cell count and differential, CSF (04/13/2017 4:18 PM CDT) Specimen type, fld [facility] Color, fld Dark Yellow [facility] Clarity, fld Cloudy Clear [facility] RBC, fld 26,466 cells/mcL [facility] Nucleated cells, fld 12,899 cells/mcL [facility] WBC counted 100 Cells [facility] Neutrophils, fld 98 % [facility] Lymphs, fld 2 % [facility] Body fluid 04/13/2017 4:18 PM CDT 04/13/2017 4:42 PM CDT us Gera Saldaña MD LAB BODY FLUIDS AND STOO LS ORDERABLES Final Result Performing Organization Address [facility] Co de Phone Number [facility] Department [place] [address] * (ABNORMAL) Differential, auto (04/13/2017 2:23 PM CDT) Neutrophil pct 75.0 % [facility] Imm gran pct 0.6 % [facility] Lymphocyte pct 17.2 % [facility] Monocyte pct 6.7 % [facility] Eosinophil pct 0.2 % [facility] Basophil pct 0.3 % [facility] Neutrophil abs 6.56(H) 1.70 - 6.50 K/cumm [facility] Imm gran abs 0.05 0.00 - 0.10 K/cumm [facility] Lymphocyte abs 1.51 0.80 - 3.30 K/cumm [facility] Monocyte abs 0.59 0.20 - 0.80 K/cumm [facility] Eosinophil abs 0.02 0.00 - 0.50 K/cumm [facility] Basophil abs 0.03 0.00 - 0.10 K/cumm [facility] Blood specimen (specimen) 04/13/2017 2:23 PM CDT 04/13/2017 3:22 PM CDT us Gera Saldaña MD LAB BLOOD ORDERABLES Fin al Result Performing Organization Address [facility] Co de Phone Number [facility] Department [place] [address] * (ABNORMAL) Erythrocyte sedimentation rate (04/13/2017 2:23 PM CDT) Erythrocyte sedimentation rate 38(H) 0 - 35 mm/H [facility] Blood specimen (specimen) 04/13/2017 2:23 PM CDT 04/13/2017 3:22 PM CDT Gera Saldaña MD LAB BLOOD ORDERABLES Fin al Result Performing Organization Address [facility] Co de Phone Number [facility] Department [place] [address] * (ABNORMAL) CRP, high sensitivity (04/13/2017 2:23 PM CDT) hsCRP 180.3(H) 0.1 - 3.0 mg/L [facility] Comment: Interpretive Data Values greater than or equal to 10 mg/L are consistent with infection or inflammation. ??When using hs-CRP to assess cardiovascular risk, two measurements should be taken, two weeks apart (averaging results). The tertile system of relative risk is recommended (Circulation 2003; 107: 499-511). The high-risk tertile has an approximate 2-fold increase in relative risk compared with the low risk tertile. If hs-CRP is being used to assess cardiac risk and hs-CRP is greater than or equal to 10 mg/L, patient should be examined for sources of infection; test should be repeated after infection has resolved. Low Risk ? <1.0 mg/L Average Risk ??1.0 - 3.0 mg/L High Risk ?>3.0 mg/L Current interpretive data was last revised on 2013. Blood specimen (specimen) 04/13/2017 2:23 PM CDT 04/13/2017 3:23 PM CDT Gera Saldaña MD LAB BLOOD ORDERABLES Sincere marissa Result - Final Performing Organization Address City/[facility]/ZIP Co de Phone Number [facility] Department [place] [address] * (ABNORMAL) CBC with auto differential (04/13/2017 2:23 PM CDT) WBC 8.76 3.80 - 9.90 K/cumm [facility] RBC 5.91(H) 3.90 - 5.20 M/cumm [facility] Hgb 11.2(L) 11.9 - 15.5 g/dL [facility] Hct 37.0 35.6 - 45.5 % [facility] MCV 62.6(L) 81.3 - 96.4 fL [facility] MCH 19.0(L) 27.1 - 33.3 pg [facility] MCHC 30.3(L) 32.3 - 35.7 g/dL [facility] RDW CV 15.8(H) 11.1 - 14.9 % [facility] RDW SD 33.9(L) 35.7 - 48.1 fL [facility] Plt 192 150 - 400 K/cumm [facility] MPV 10.8 9.1 - 12.3 fL [facility] NRBC 0.0 0.0 - 0.2 % [facility] NRBC abs 0.00 0.00 - 0.01 K/cumm [facility] Blood specimen (specimen) 04/13/2017 2:23 PM CDT 04/13/2017 3:22 PM CDT Gera Saldaña MD LAB BLOOD ORDERABLES Sincere marissa Result - Final Performing Organization Address City/[facility] Co de Phone Number [facility] Department [place] [address] * Troponin I (04/13/2017 2:23 PM CDT) Troponin I <0.03 0.00 - 0.03 ng/mL [facility] Comment: Interpretive Data Serial determinations are recommended for the diagnosis of myocardial infarction (Third [place] Definition of Myocardial Infarction. ??J Am Kishor Cardiol 2012;60:1581-98). Current interpretive data was last revised on 13. Blood specimen (specimen) 04/13/2017 2:23 PM CDT 04/13/2017 3:23 PM CDT Gera Saldaña MD LAB BLOOD ORDERABLES Sincere marissa Result - Final [facility] Department [place] [address] * (ABNORMAL) Basic metabolic panel (04/13/2017 2:23 PM CDT) Sodium 135 135 - 145 mmol/L [facility] Potassium, pl 4.4 3.3 - 4.9 mmol/L [facility] Chloride 99 97 - 110 mmol/L [facility] CO2 26 22 - 32 mmol/L [facility] BUN 25 8 - 25 mg/dL [facility] Glucose 110 70 - 199 mg/dL [facility] Creatinine 1.11(H) 0.60 - 1.10 mg/dL [facility] Calcium 9.2 8.5 - 10.3 mg/dL [facility] Anion gap 10 2 - 15 mmol/L [facility] Blood specimen (specimen) 04/13/2017 2:23 PM CDT 04/13/2017 3:23 PM CDT Gera Saldaña MD LAB BLOOD ORDERABLES Fin al Result Performing Organization Address City/State/[facility] Co de Phone Number [facility] Department [place] [address] documented in this encounter Visit Diagnoses Not on filedocumented in this encounter Care Teams Cio Relationship Specialty Start Date End Date Brittny Salazar MD [address] [address] PCP - General 05/15/09 05/11/17 documented as of this encounter
--- OUTSIDE RECORDS SUMMARY | 2024-10-31 03:53 | XMS_ITS | Encounter Summary ---
Author Organization [facility] Address [address] [place] [address] Phone Care Team Providers Care Music Theory Professor Name Role Phone Brittny Salazar MD Primary Care Provider [phone] Miscellaneous, Not In File Primary Care Provider Unavailable Willy Cummings MD Primary Care Provider + [phone] Willy Cummings MD Primary Care Provider + [phone] Brittny Salazar MD Primary Care Provider +[phone] Willy Cummings MD Primary Care Provider + [phone] Willy Cummings MD Primary Care Provider + [phone] Brittny Salazar MD Primary Care Provider +[phone] Willy Cummings MD Primary Care Provider + [phone] Brittny Salazar MD Primary Care Provider +[phone] Willy Cummings MD Primary Care Provider + [phone] Brittny Salazar MD Primary Care Provider +[phone] Willy Cummings MD Primary Care Provider + [phone] Brittny Salazar MD Primary Care Provider +[phone] Willy Cummings MD Primary Care Provider + [phone] Willy Cummings MD Primary Care Provider +- [phone] Cecilia Lim MD Primary Care Provider Rodolfo Mantilla MD Unavailable Sabrina Ruffin MD Primary Care Provider Encounter Details Date Type Department Care Team (Latest Contact Info) Description 04/15/2017 Orders Only [facility] CONVERSION Scanning, Provider Social History Tobacco Use Types Packs/Day Years Used Date Smoking Tobacco: Never Comments Unknown Sex and Gender Information Value Date Recorded Sex Assigned at Not on file Legal Sex Female 1:04 AM [employer] Gender Identity Not on file Sexual Orientation Not on file documented as of this encounter Plan of Treatment Not on file documented as of this encounter Procedures Procedure Name Priority Date/Time Associated Diagnosis Comments VASCULAR LABORATORY REPORT 04/15/2017 12:44 PM CDT documented in this encounter Results * VASCULAR LABORATORY REPORT (04/15/2017 12:44 PM CDT) Anatomical Region Laterality Modality Ultrasound us Provider Scanning CV VASCULAR PROCEDURES Final R esult documented in this encounter Visit Diagnoses Not on filedocumented in this encounter Care Teams Music Theory Professor Relationship Specialty Start Date End Date Brittny Salazar MD [address] [address] PCP - General 05/15/09 05/11/17 Miscellaneous, Not In File PCP - General 05/12/17 Willy Cummings MD [address] [place] [address] PCP - General 05/14/17 05/14/17 Willy Cummings MD [address] [place] [address] PCP - General 05/15/17 05/17/17 Brittny Salazar MD [address] [address] PCP - General 05/18/17 05/31/17 Willy Cummings MD [address] [place] [address] PCP - General 06/01/17 06/03/17 Willy Cummings MD [address] [place] [address] PCP - General 06/04/17 06/04/17 Brittny Salazar MD [address] [address] PCP - General 06/05/17 06/11/17 Willy Cummings MD [address] [place] [address] PCP - General 06/12/17 06/14/17 Brittny Salazar MD [address] [address] PCP - General 06/15/17 06/15/17 Willy Cummings MD [address] [place] [address] PCP - General 06/16/17 06/23/17 Brittny Salazar MD [address] [address] PCP - General 06/24/17 06/24/17 Willy Cummings MD [address] [place] [address] PCP - General 06/25/17 06/25/17 Brittny Salazar MD [address] [address] PCP - General 06/26/17 07/15/17 Willy Cummings MD [address] [place] [address] PCP - General 07/16/17 08/05/17 Willy Cummings MD [address] [place] [address] PCP - General 08/06/17 12/20/19 Cecilia Lim MD [address] [place] [address] PCP - General Family Medicine 12/21/19 12/30/20 Sabrina Ruffin MD [address] [facility] [address] [place] [address] PCP - General Family Medicine 12/31/20 Rodolfo Mantilla MD [address] [place] [address] Consulting Physician Neurology 12/21/19 documented as of this encounter
--- OUTSIDE RECORDS SUMMARY | 2024-10-31 03:53 | XMS_ITS | Encounter Summary ---
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 Name Role Phone Brittny Salazar MD Primary Care Provider [phone] Encounter Details Date Type Department Care Team (Late st Contact Info) Description 04/21/2017 10:42 AM CDT - 04/22/2017 8:40 PM CDT Hospital Encounter [facility] [phone] Yousif Etienne MD [address] [place] [address] Unknown, Notinfile Discharge Disposition: Discharge to home or self care Social History Tobacco Use Types Packs/Day Years Used Date Smoking Tobacco: Never Comments Unknown Sex and Gender Information Value Date Recorded Sex Assigned at Not on file 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 Gender Identity Not on file Sexual Orientation Not on file documented as of this encounter Last Filed Vital Signs Vital Sign Reading Time Taken Comments Blood Pressure 153/60 04/22/2017 8:03 PM CDT Pulse 83 04/22/2017 8:29 PM CDT Temperature - - Respiratory Rate - - Oxygen Saturation 97% 04/22/2017 8:29 PM CDT Inhaled Oxygen Concentration - - Weight - - Height - - Body Mass Index - - documented in [...] Procedure Name Priority Date/Time Associated Diagnosis Comments ABDOMINAL RADIOGRAPHY, FRONTAL (AP) Routine 04/22/2017 10:35 AM CDT TRANSFUSION EVENT Routine 04/22/2017 3:5 4 AM CDT TRANSFUSION EVENT Routine 04/22/2017 1:4 0 AM CDT CBC WITHOUT DIFFERENTIAL After X-Ray 04/22/2017 1:06 AM CDT DISCHARGE LABORATORY CUMULATIVE REPORT 04/22/2017 12:00 AM CDT APTT STAT 04/21/2017 7:13 PM CDT PROTIME-INR STAT 04/21/2017 7:13 PM CDT XR KNEE 4+ VW Routine 04/21/2017 5:38 PM CDT PACKED RED BLOOD CELLS 2 STAT 04/21/2017 4:52 PM CDT ANTIBODY IDENTIFICATION STAT 04/21/2017 2:15 PM CDT RAPID HIV ED POC STAT 04/21/2017 1:17 PM CDT TYPE AND SCREEN STAT 04/21/2017 12:57 PM CDT URINALYSIS AND REFLEX TO MICROSCOPIC STAT 04/21/2017 12:57 PM CDT APTT STAT 04/21/2017 12:57 PM CDT PROTIME-INR STAT 04/21/2017 12:57 PM CDT LACTATE POC Routine Gen Lab 04/21/2017 11:50 AM CDT DIFFERENTIAL AUTO STAT 04/21/2017 11: 33 AM CDT CBC WITH AUTO DIFFERENTIAL STAT 04/21/2017 11:33 AM CDT ERYTHROCYTE SEDIMENTATION RATE STAT 04/21/2017 11:33 AM CDT CRP (ACUTE PHASE) STAT 04/21/2017 11: 33 AM CDT HEPATIC FUNCTION PANEL STAT 04/21/2017 11:33 AM CDT BASIC METABOLIC PANEL STAT 04/21/2017 11:33 AM CDT GLUCOSE POC Routine Gen Lab 04/21/2017 10:56 AM CDT documented in this encounter Results * ABDOMINAL RADIOGRAPHY, FRONTAL (AP) (04/22/2017 10:35 AM CDT) Anatomical Region Laterality Modality N/A Radiographic Zhane ging 04/22/2017 10:3 5 AM CDT Narrative 04/22/2017 10:35 AM CDT Yolanda MOHAN M.D. FINAL REPORT The radiology attending physician has personally reviewed this study, and has reviewed and/or edited this written report and agrees with it. ACC# ??Date Time ??Exam [id number] Apr 22, 2017 05:35:00 [id number] Abdomen single view AP EXAMINATION: ?? Abdomen single view HISTORY: Change in bowel habits IMPRESSION: ?No prior study is available for comparison. supine radiographs of the abdomen are performed. There has been prior cholecystectomy. An inferior vena cava filter is in place. The bowel gas pattern is normal. Lumbar spine degenerative disc is present. Requested By: KELLI CARROLL Dictated By: ?? SAM MAURER M.D. ??on Apr 22 2017 ??6:25A This document has been electronically signed by: VANESSA POMPA M.D. on Apr 22 2017 ??6:07P [id number] LARIOS M.D. FINAL REPORT The radiology attending physician has personally reviewed this study, and has reviewed and/or edited this written report and agrees with it. Attending: ??CHANDAN, ??YOUSIF Requesting: ??GLEN, ??KELLI Requesting Fax: ?? Attending Fax: ?? Attending ID: ??[id number] Requesting ID: ??[id number] Report To 1 ID: ??[id number] ? Report To 1 Name: ??, ?? Report To 1 FAX: ?? NextGen Order #: ?? Procedure Note Miscellaneous, Not In File - 08/14/2017 Yolanda MOHAN M.D. FINAL REPORT The radiology attending physician has personally reviewed this study, and has reviewed and/or edited this written report and agrees with it. ACC# Date Time Exam [id number] Apr 22, 2017 05:35:00 [id number] Abdomen single view AP EXAMINATION: Abdomen single view HISTORY: Change in bowel habits IMPRESSION: No prior study is available for comparison. supine radiographs of the abdomen are performed. There has been prior cholecystectomy. An inferior vena cava filter is in place. The bowel gas pattern is normal. Lumbar spine degenerative disc is present. Requested By: KELLI CARROLL Dictated By: SAM MAURER M.D. on Apr 22 2017 6:25A This document has been electronically signed by: VANESSA POMPA M.D. on Apr 22 2017 6:07P [id number] LARIOS M.D. FINAL REPORT The radiology attending physician has personally reviewed this study, and has reviewed and/or edited this written report and agrees with it. Attending: YOUSIF ETIENNE Requesting: KELLI CARROLL Requesting Fax: Attending Fax: Attending ID: [id number] Requesting ID: [id number] Report To 1 ID: [id number] Report To 1 Name: , Report To 1 FAX: NextGen Order #: Kelli Elena Carroll JINGLE WRITER IMG XR PROCEDURES Edited Res ult - Final * Transfusion Event (04/22/2017 3:54 AM CDT) 04/22/2017 3:54 AM CDT [facility] [place] [facility] - 04/22/2017 3:54 AM CDT JONNIE PANDA [facility] [id number] Pre Transfusion checks verified 04-21-2017 22:54 by Nae Adkins Consent or Emergency Release Verified Order to Transfuse in last 24hrs Pre Medication Orders Reviewed Verified Crossmatch, if performed Special requirements ordered are met [id number] RBCs RED BLOOD CELLS LEUKOREDUCED Product Expiration Date Time: 05-11-2017 23:59 Start Transfusionist: Nae Adkins Start Date/Time of Transfusion: 04-21-2017 22:54 End Transfusionist: Nae Adkins End Date/Time of Transfusion: 04-22-2017 01:06 Vitals Date/Time ?Bld Pressure ??HR ?Respirations ??Temp ??Site ?O2 Sat 04-21-2017 22:25 ? 86 ?96 04-21-2017 22:26 ? 85 ?99 04-21-2017 22:27 ? 83 ?97 04-21-2017 22:28 ? 84 ?97 04-21-2017 22:29 ? 83 ?96 04-21-2017 22:30 ? 82 ?96 04-21-2016 22:31 ? 83 ?97 04-21-2017 22:32 171/75 ?84 ?96 04-21-2017 22:33 ? 92 ?99 04-21-2017 22:34 ? 87 ?98 04-21-2017 22:35 ? 86 ?96 04-21-2017 22:36 ? 85 ?96 04-21-2016 22:37 ? 84 ?96 04-21-2016 22:38 ? 83 ?96 04-21-2016 22:39 ? 83 ?97 04-21-2016 22:40 ? 82 ?96 04-21-2016 22:41 ? 82 ?96 04-21-2017 22:42 ? 82 ?97 04-21-2016 22:43 ? 82 ?97 04-21-2017 22:44 ? 82 ?97 04-21-2017 22:45 ? 74 ?98 04-21-2017 22:46 ? 83 ?98 04-21-2017 22:47 ? 83 ?97 04-21-2017 22:48 ? 83 ?96 04-21-2017 22:49 ? 84 ?96 04-21-2017 22:50 ? 85 ?96 04-21-2017 22:51 ? 84 ?96 06-27-2017 22:52 ? 83 ?96 --2017 22:53 ? 83 ?99 06--2017 22:54 ? 86 ?98 06--2017 22:55 ? 82 ?98 06--2017 22:56 ? 83 ?97 --2017 22:57 ? 82 ?96 --2017 22:58 ? 84 ?97 06--2017 22:59 ? 82 ?97 06-27-2017 23:00 ? 85 ?97 06-27-2017 23:01 ? 82 ?96 06-27-2017 23:02 167/74 ?82 ?98 06-27-2017 23:03 ? 84 ?97 06-27-2017 23:04 ? 86 ?99 06-27-2017 23:05 ? 83 ?98 06-27-2017 23:06 ? 84 ?97 06-27-2017 23:07 ? 84 ?97 06-27-2017 23:08 ? 84 ?98 06-27-2017 23:09 ? 89 ?100 --2017 23:10 ? 85 ?98 06-27-2017 23:11 ? 86 ?97 -27-2017 23:12 ? 82 ?97 -27-2017 23:13 ? 84 ?97 -27-2017 23:14 ? 82 ?97 06-27-2017 23:15 ? 84 ?97 --2017 23:16 ? 83 ?96 --2017 23:17 ? 84 ?97 04-21-2017 23:18 ? 83 ?96 --2017 23:19 ? 85 ?100 --2017 23:20 ? 83 ?98 --2017 23:21 ? 83 ?97 04-21-2017 23:22 ? 83 ?97 --2017 23:23 ? 84 ?99 --2017 23:24 ? 84 ?97 --2017 23:25 ? 84 ?96 04-21-2017 23:26 ? 85 ?98 --2017 23:27 ? 83 ?98 04-21-2017 23:28 ? 80 ?97 04-21-2017 23:29 ? 81 ?97 04-21-2017 23:30 ? 87 ?100 04-21-2017 23:31 ? 83 ?99 04-21-2017 23:32 166/127 ? 82 ?97 04-21-2017 23:33 ? 82 ?98 04-21-2017 23:34 ? 83 ?96 --2017 23:35 ? 86 ?97 04-21-2017 23:36 ? 83 ?97 04-21-2017 23:37 ? 81 ?95 04-21-2017 23:38 ? 84 ?96 06-27-2017 23:39 ? 83 ?96 06--2017 23:40 ? 81 ?96 06--2017 23:41 ? 80 ?98 06-27-2017 23:42 ? 81 ?97 06-27-2017 23:43 ? 83 ?98 06--2017 23:44 ? 81 ?98 06--2017 23:45 ? 81 ?98 06-27-2017 23:46 ? 81 ?98 06-27-2017 23:47 ? 84 ?98 06-27-2017 23:48 ? 87 ?98 06-27-2017 23:49 ? 83 ?97 06-27-2017 23:50 ? 82 ?96 06-27-2017 23:51 ? 86 ?97 06-27-2017 23:52 ? 83 ?99 06-27-2017 23:53 ? 83 ?96 06-27-2017 23:54 ? 82 ?96 04-21-2017 23:55 ? 80 ?97 --2017 23:56 ? 79 ?97 04-21-2017 23:57 ? 80 ?96 --2017 23:58 ? 81 ?97 04-21-2017 23:59 ? 80 ?96 04-22-2017 00:00 ? 79 ?97 04-22-2016 00:01 ? 80 ?96 04-22-2017 00:02 139/128 ? 80 ?98 04-22-2016 00:03 ? 81 ?99 04-22-2016 00:04 ? 80 ?96 04-22-2017 00:05 ? 80 ?97 04-22-2016 00:06 ? 79 ?97 04-22-2016 00:07 ? 80 ?97 04-22-2017 00:08 ? 79 ?98 04-22-2016 00:09 ? 78 ?97 04-22-2016 00:10 ? 79 ?97 04-22-2017 00:11 ? 78 ?96 04-22-2017 00:12 ? 78 ?96 04-22-2017 00:49 136/70 ?78 ?16 ?98 04-22-2017 02:14 ? 73 ?98 04-22-2017 02:15 ? 73 ?97 04-22-2017 02:16 ? 72 ?99 04-22-2017 02:17 ? 73 ?97 04-22-2017 02:18 ? 73 ?97 04-22-2016 02:19 ? 74 ?96 04-22-2016 02:20 ? 73 ?98 04-22-2016 02:21 ? 73 ?97 04-22-2017 02:22 ? 73 ?96 04-22-2016 02:23 ? 72 ?97 04-22-2017 02:24 ? 73 ?97 04-22-2017 02:25 ? 73 ?97 04-22-2017 02:26 ? 73 ?97 --2017 02:27 ? 73 ?96 --2017 02:28 ? 72 ?98 --2017 02:29 ? 73 ?97 --2017 02:30 ? 72 ?98 --2017 02:31 ? 72 ?97 --2017 02:32 148/63 ?71 ?97 --2017 02:33 ? 76 ?97 06--2017 02:34 ? 80 ?100 --2017 02:35 ? 84 ?100 --2017 02:36 ? 84 ?100 --2017 02:37 ? 84 ?100 --2017 02:38 ? 80 ?100 --2017 02:39 ? 79 ?99 04-22-2017 02:40 ? 79 ?99 --2017 02:41 ? 78 ?99 --2017 02:42 ? 77 ?98 --2017 02:43 ? 79 ?96 --2017 02:44 ? 79 ?96 --2017 02:45 ? 76 ?95 04-22-2017 02:46 ? 77 ?97 04-22-2017 02:47 ? 76 ?96 04-22-2017 02:48 ? 75 ?96 --2017 02:49 ? 75 ?97 04-22-2016 02:50 ? 76 ?97 04-22-2016 02:51 ? 75 ?96 04-22-2017 02:52 ? 76 ?97 04-22-2016 02:53 ? 74 ?99 04-22-2016 02:54 ? 74 ?97 04-22-2016 02:55 ? 72 ?97 04-22-2016 02:56 ? 73 ?96 04-22-2016 02:57 ? 77 ?99 04-22-2017 02:58 ? 81 ?97 04-22-2017 02:59 ? 81 ?99 04-22-2017 03:00 ? 76 ?100 04-22-2017 03:01 163/78 ?80 ?97 04-22-2017 03:02 ? 80 ?99 04-22-2017 03:03 ? 82 ?99 04-22-2017 03:04 ? 81 ?99 04-22-2017 03:05 ? 80 ?98 04-22-2016 03:07 ? 80 ?98 04-22-2017 03:08 ? 79 ?95 04-22-2016 03:09 ? 80 ?93 04-22-2017 03:10 ? 79 ?93 04-22-2016 03:11 ? 79 ?92 04-22-2017 03:12 ? 76 ?91 04-22-2016 03:13 ? 76 ?92 04-22-2017 03:14 ? 74 ?90 --2017 03:15 ? 74 ?92 --2017 03:16 ? 76 ?91 --2017 03:17 ? 75 ?90 --2017 03:18 ? 75 ?90 --2017 03:19 ? 75 ?90 --2017 03:20 ? 75 ?90 --2017 03:21 ? 76 ?90 06-28-2017 03:22 ? 73 ?97 06-28-2017 03:23 ? 73 ?95 06-28-2017 03:24 ? 73 ?96 06-28-2017 03:25 ? 73 ?96 06-28-2017 03:26 ? 74 ?96 06-28-2017 03:27 ? 74 ?99 06-28-2017 03:28 ? 75 ?97 06-28-2017 03:29 ? 73 ?97 --2017 03:30 ? 75 ?97 --2017 03:31 ? 74 ?96 --2017 03:32 145/74 ?74 ?96 --2017 03:33 ? 74 ?96 --2017 03:34 ? 73 ?96 --2017 03:35 ? 74 ?95 --2017 03:36 ? 73 ?95 --2017 03:37 ? 73 ?95 04-22-2016 03:38 ? 73 ?96 04-22-2017 03:39 ? 73 ?98 04-22-2017 03:40 ? 74 ?96 04-22-2017 03:41 ? 73 ?96 04-22-2017 03:42 ? 73 ?96 04-22-2017 03:43 ? 73 ?96 04-22-2017 03:44 ? 73 ?96 04-22-2017 03:45 ? 73 ?96 04-22-2017 03:46 ? 74 ?96 04-22-2016 03:47 ? 73 ?96 04-22-2017 03:48 ? 73 ?96 04-22-2017 03:49 ? 74 ?98 04-22-2017 03:50 ? 73 ?97 04-22-2017 03:51 ? 74 ?97 04-22-2017 03:52 ? 73 ?97 04-22-2017 03:53 ? 73 ?98 04-22-2016 03:54 ? 73 ?97 04-22-2017 03:55 ? 73 ?99 04-22-2016 03:56 ? 73 ?98 04-22-2017 03:57 ? 73 ?97 04-22-2016 03:58 ? 73 ?98 04-22-2017 03:59 ? 73 ?98 04-22-2016 04:00 ? 73 ?98 04-22-2016 04:01 ? 75 ?98 --2016 04:02 151/70 ?75 ?97 --2016 04:03 ? 75 ?97 --2016 04:04 ? 74 ?98 04-22-2017 04:05 ? 74 ?97 04-22-2017 04:06 ? 73 ?100 --2017 04:07 ? 74 ?99 --2017 04:08 ? 73 ?98 --2017 04:09 ? 73 ?99 --2017 04:10 ? 73 ?99 --2017 04:11 ? 73 ?99 06--2017 04:12 ? 73 ?99 --2017 04:13 ? 73 ?99 --2017 04:14 ? 74 ?99 06--2017 04:15 ? 74 ?100 06-28-2017 04:16 ? 73 ?98 --2017 04:17 ? 72 ?99 --2017 04:18 ? 74 ?99 --2017 04:19 ? 74 ?99 --2017 04:20 ? 74 ?99 04-22-2017 04:21 ? 73 ?99 --2017 04:22 ? 74 ?99 04-22-2017 04:23 ? 74 ?99 --2017 04:24 ? 73 ?100 04-22-2016 04:25 ? 74 ?99 04-22-2016 04:26 ? 74 ?100 04-22-2017 04:27 ? 73 ?100 04-22-2016 04:28 ? 74 ?100 04-22-2017 04:29 ? 75 ?100 04-22-2016 04:30 ? 75 ?100 04-22-2017 04:31 ? 75 ?100 04-22-2016 04:32 159/66 ?73 ?100 --2016 04:33 ? 74 ?99 --2016 04:34 ? 75 ?98 --2016 04:35 ? 76 ?98 04-22-2017 04:36 ? 73 ?98 04-22-2016 04:37 ? 76 ?98 04-22-2017 04:38 ? 75 ?99 04-22-2017 04:39 ? 74 ?99 --2017 04:40 ? 74 ?99 04-22-2016 04:41 ? 73 ?97 04-22-2017 04:42 ? 74 ?99 04-22-2017 04:43 ? 73 ?99 04-22-2017 04:44 ? 75 ?100 04-22-2017 04:45 ? 74 ?99 04-22-2017 04:46 ? 73 ?99 04-22-2017 04:47 ? 73 ?98 06--2017 04:48 ? 75 ?99 --2017 04:49 ? 75 ?98 --2017 04:50 ? 75 ?98 06--2017 04:51 ? 77 ?98 06--2017 04:52 ? 75 ?98 06--2017 04:53 ? 75 ?97 06--2017 04:54 ? 74 ?98 06-28-2017 04:55 ? 75 ?98 --2017 04:56 ? 77 ?97 --2017 04:57 ? 76 ?97 --2017 04:58 ? 76 ?97 --2017 04:59 ? 74 ?98 --2017 05:00 ? 74 ?97 04-22-2017 05:01 ? 76 ?98 --2017 05:02 151/80 ?77 ?97 --2017 05:03 ? 75 ?97 04-22-2016 05:04 ? 77 ?98 04-22-2016 05:05 ? 75 ?96 04-22-2016 05:06 ? 76 ?96 04-22-2017 05:07 ? 75 ?97 04-22-2016 05:08 ? 75 ?96 04-22-2016 05:09 ? 75 ?99 04-22-2016 05:10 ? 75 ?97 04-22-2016 05:11 ? 76 ?97 04-22-2016 05:12 ? 77 ?98 --2016 05:13 ? 77 ?97 04-22-2016 05:14 ? 76 ?97 04-22-2016 05:15 ? 75 ?97 04-22-2016 05:16 ? 76 ?96 04-22-2016 05:17 ? 75 ?97 04-22-2016 05:18 ? 75 ?97 04-22-2016 05:19 ? 78 ?96 04-22-2016 05:20 ? 84 ?98 04-22-2017 05:21 ? 86 ?96 04-22-2016 05:22 ? 91 ?95 04-22-2017 05:24 ? 89 ?100 04-22-2016 05:25 ? 87 ?99 04-22-2017 05:26 ? 88 ?96 04-22-2016 05:27 ? 86 ?99 04-22-2017 05:28 ? 90 ?99 04-22-2016 05:29 ? 88 ?100 04-22-2016 05:30 ? 82 ?100 04-22-2016 05:31 ? 84 ?100 04-22-2016 05:32 ? 86 ?100 04-22-2016 05:33 127/117 ? 84 ?100 04-22-2016 05:34 ? 82 ?99 04-22-2016 05:35 ? 80 ?97 04-22-2017 05:36 ? 80 ?99 --2017 05:37 ? 78 ?96 --2017 05:38 ? 78 ?93 06--2017 05:39 ? 79 ?94 06-28-2017 05:40 ? 79 ?94 06--2017 05:41 ? 79 ?93 06-28-2017 05:42 ? 79 ?94 06-28-2017 05:43 ? 78 ?94 --2017 05:44 ? 79 ?93 --2017 05:45 ? 79 ?95 04-22-2017 05:46 ? 78 ?94 --2017 05:47 ? 78 ?97 04-22-2017 05:48 ? 79 ?96 04-22-2017 05:49 ? 77 ?95 04-22-2017 05:50 ? 79 ?96 --2017 05:51 ? 79 ?95 04-22-2016 05:52 ? 79 ?94 04-22-2016 05:53 ? 79 ?94 04-22-2016 05:54 ? 79 ?95 04-22-2016 05:55 ? 77 ?96 04-22-2016 05:56 ? 81 ?96 04-22-2016 05:57 ? 79 ?95 04-22-2016 05:58 ? 79 ?94 04-22-2016 05:59 ? 79 ?95 Total Volume Transfused: 350 mL Transfusion Reaction Indicated: NO us Not In File Miscellaneous BLOOD BANK PRODUCT ORD ERABLES Final Result [facility] [address] [place] [address], [facility] * Transfusion Event (04/22/2017 1:40 AM CDT) 04/22/2017 1:40 AM CDT Narrative [facility] - 04/22/2017 1:40 AM CDT JONNIE PANDA [facility] [id number] Pre Transfusion checks verified 04-21-2017 20:40 by Nae Adkins Consent or Emergency Release Verified Order to Transfuse in last 24hrs Pre Medication Orders Reviewed Verified Crossmatch, if performed Special requirements ordered are met [id number] RBCs RED BLOOD CELLS LEUKOREDUCED Product Expiration Date Time: 05-11-2017 23:59 Start Transfusionist: Nae Adkins Start Date/Time of Transfusion: 04-21-2017 20:40 End Transfusionist: Nae Adkins End Date/Time of Transfusion: 04-21-2017 22:50 Vitals Date/Time ?Bld Pressure ??HR ?Respirations ??Temp ??Site ?O2 Sat 04-21-2017 20:11 ? 87 ?97 04-21-2017 20:12 ? 88 ?97 04-21-2017 20:13 ? 87 ?98 --2017 20:14 ? 87 ?98 --2017 20:15 ? 85 ?97 --2017 20:16 ? 84 ?98 --2017 20:17 ? 86 ?99 --2017 20:18 ? 84 ?98 --2017 20:19 ? 84 ?97 04-21-2017 20:20 ? 85 ?97 --2017 20:21 ? 82 ?98 06-27-2017 20:22 ? 85 ?98 06-27-2017 20:23 ? 83 ?97 06-27-2017 20:24 ? 85 ?98 06-27-2017 20:25 ? 82 ?98 06-27-2017 20:26 ? 85 ?97 06-27-2017 20:27 ? 83 ?99 06-27-2017 20:28 ? 84 ?97 06-27-2017 20:29 ? 82 ?97 06-27-2017 20:30 ? 84 ?98 06-27-2017 20:31 ? 84 ?98 06-27-2017 20:32 156/92 ?84 ?98 06-27-2017 20:33 ? 83 ?98 06-27-2017 20:34 ? 83 ?98 06-27-2017 20:35 ? 84 ?97 06-27-2017 20:36 ? 84 ?98 06--2017 20:37 ? 84 ?99 06--2017 20:38 ? 84 ?97 06--2017 20:39 ? 86 ?98 06--2017 20:40 156/92 ?87 ?16 ?37.1 ??Unknown ? 97 06--2017 20:41 ? 85 ?98 06--2017 20:42 ? 86 ?99 06--2017 20:43 ? 90 ?99 06-27-2017 20:44 ? 92 ?99 04-21-2017 20:45 179/81 ?96 ?18 ?37.0 ??Unknown ? 96 04-21-2017 20:46 ? 95 ?100 04-21-2017 20:47 ? 99 ?100 04-21-2017 20:48 179/81 ?99 ?99 04-21-2017 20:49 ? 96 ?100 04-21-2017 20:50 178/83 ?95 ?16 ?36.7 ??Unknown ? 96 04-21-2017 20:51 ? 100 ? 100 04-21-2017 20:52 178/83 ?95 ?98 06-27-2017 20:53 ? 95 ?99 04-21-2016 20:54 ? 94 ?98 04-21-2017 20:55 180/80 ?92 ?16 ?36.8 ??Unknown ? 94 04-21-2017 20:56 ? 94 ?98 04-21-2017 20:57 180/80 ?95 ?99 04-21-2016 20:58 184/72 ?92 ?99 04-21-2016 20:59 ? 88 ?98 04-21-2017 21:00 ? 88 ?96 04-21-2016 21:01 ? 87 ?95 --2017 21:02 171/74 ?88 ?96 --2017 21:03 ? 89 ?97 04-21-2017 21:04 ? 88 ?98 --2017 21:05 ? 90 ?97 04-21-2017 21:06 ? 88 ?99 --2017 21:07 ? 88 ?98 04-21-2017 21:08 ? 90 ?97 04-21-2017 21:09 ? 94 ?99 04-21-2017 21:10 ? 100 ? 95 04-21-2017 21:11 ? 94 ?99 --2017 21:12 ? 97 ?98 04-21-2017 21:13 ? 100 ? 95 04-21-2017 21:14 ? 93 ?99 04-21-2017 21:15 ? 93 ?100 04-21-2017 21:16 ? 94 ?98 06-27-2017 21:17 ? 95 ?100 06-27-2017 21:18 ? 92 ?100 06-27-2017 21:19 ? 88 ?96 06-27-2017 21:20 ? 88 ?91 06-27-2017 21:21 ? 84 ?93 06-27-2017 21:22 ? 86 ?93 06-27-2017 21:23 ? 84 ?94 06-27-2017 21:24 ? 84 ?95 06-27-2017 21:25 ? 84 ?94 06-27-2017 21:26 ? 92 ?100 06-27-2017 21:27 ? 84 ?98 06-27-2017 21:28 ? 87 ?94 06-27-2017 21:29 ? 90 ?95 06-27-2017 21:30 ? 84 ?96 -27-2017 21:31 ? 90 ?96 06-27-2017 21:32 168/72 ?84 ?96 --2017 21:33 ? 84 ?96 --2017 21:34 ? 83 ?96 04-21-2017 21:35 ? 83 ?97 --2017 21:36 ? 87 ?97 04-21-2017 21:37 ? 83 ?97 04-21-2017 21:38 ? 83 ?96 04-21-2017 21:39 ? 86 ?97 04-21-2017 21:40 ? 83 ?97 04-21-2017 21:41 ? 85 ?97 04-21-2017 21:42 ? 84 ?99 04-21-2017 21:43 ? 87 ?97 04-21-2017 21:44 ? 86 ?97 04-21-2017 21:45 ? 85 ?96 04-21-2017 21:46 ? 85 ?97 04-21-2017 21:47 ? 86 ?96 04-21-2017 21:48 ? 85 ?96 04-21-2017 21:49 ? 84 ?96 04-21-2017 21:50 ? 83 ?99 04-21-2017 21:51 ? 84 ?96 04-21-2017 21:52 ? 81 ?96 04-21-2017 21:53 ? 84 ?96 04-21-2017 21:54 ? 84 ?96 04-21-2017 21:55 ? 83 ?95 04-21-2017 21:56 ? 85 ?95 --2017 21:57 ? 87 ?99 --2017 21:58 ? 86 ?96 --2017 21:59 ? 87 ?97 --2017 22:00 ? 87 ?96 04-21-2017 22:01 ? 83 ?95 --2017 22:02 171/76 ?86 ?96 04-21-2017 22:03 ? 87 ?95 06-27-2017 22:04 ? 85 ?96 06-27-2017 22:05 ? 84 ?96 06-27-2017 22:06 ? 86 ?95 06-27-2017 22:07 ? 86 ?96 06-27-2017 22:08 ? 88 ?100 06-27-2017 22:09 ? 86 ?97 06-27-2017 22:10 ? 91 ?97 06-27-2017 22:11 ? 87 ?98 --2017 22:12 ? 86 ?96 --2017 22:13 ? 86 ?95 --2017 22:14 ? 87 ?96 --2017 22:15 ? 87 ?99 --2017 22:16 ? 87 ?98 --2017 22:17 ? 85 ?97 --2017 22:18 ? 85 ?96 -27-2017 22:19 ? 86 ?96 04-21-2017 22:20 ? 82 ?96 04-21-2017 22:21 ? 84 ?97 04-21-2017 22:22 ? 85 ?96 04-21-2017 22:23 ? 84 ?96 04-21-2017 22:24 ? 85 ?97 04-21-2017 22:25 ? 86 ?96 04-21-2017 22:26 ? 85 ?99 04-21-2017 22:27 ? 83 ?97 04-21-2017 22:28 ? 84 ?97 04-21-2017 22:29 ? 83 ?96 04-21-2016 22:30 ? 82 ?96 04-21-2017 22:31 ? 83 ?97 04-21-2016 22:32 171/75 ?84 ?96 04-21-2017 22:33 ? 92 ?99 04-21-2016 22:34 ? 87 ?98 04-21-2017 22:35 ? 86 ?96 04-21-2017 22:36 ? 85 ?96 --2017 22:37 ? 84 ?96 04-21-2017 22:38 ? 83 ?96 --2017 22:39 ? 83 ?97 04-21-2017 22:40 ? 82 ?96 04-21-2017 22:41 ? 82 ?96 04-21-2017 22:42 ? 82 ?97 04-21-2017 22:43 ? 82 ?97 06--2017 22:44 ? 82 ?97 06--2017 22:45 ? 74 ?98 06--2017 22:46 ? 83 ?98 06--2017 22:47 ? 83 ?97 06--2017 22:48 ? 83 ?96 --2017 22:49 ? 84 ?96 06--2017 22:50 ? 85 ?96 06-27-2017 22:51 ? 84 ?96 06-27-2017 22:52 ? 83 ?96 06--2017 22:53 ? 83 ?99 06-27-2017 22:54 ? 86 ?98 06-27-2017 22:55 ? 82 ?98 06-27-2017 22:56 ? 83 ?97 06-27-2017 22:57 ? 82 ?96 06-27-2017 22:58 ? 84 ?97 --2017 22:59 ? 82 ?97 --2017 23:00 ? 85 ?97 04-21-2017 23:01 ? 82 ?96 --2017 23:02 167/74 ?82 ?98 --2017 23:03 ? 84 ?97 --2017 23:04 ? 86 ?99 --2017 23:05 ? 83 ?98 --2017 23:06 ? 84 ?97 04-21-2016 23:07 ? 84 ?97 04-21-2016 23:08 ? 84 ?98 04-21-2016 23:09 ? 89 ?100 04-21-2016 23:10 ? 85 ?98 04-21-2016 23:11 ? 86 ?97 04-21-2016 23:12 ? 82 ?97 04-21-2016 23:13 ? 84 ?97 04-21-2016 23:14 ? 82 ?97 04-21-2017 23:15 ? 84 ?97 04-21-2017 23:16 ? 83 ?96 04-21-2017 23:17 ? 84 ?97 04-21-2017 23:18 ? 83 ?96 04-21-2017 23:19 ? 85 ?100 04-21-2017 23:20 ? 83 ?98 04-21-2017 23:21 ? 83 ?97 04-21-2017 23:22 ? 83 ?97 06-27-2017 23:23 ? 84 ?99 06-27-2017 23:24 ? 84 ?97 06-27-2017 23:25 ? 84 ?96 06-27-2017 23:26 ? 85 ?98 06-27-2017 23:27 ? 83 ?98 06-27-2017 23:28 ? 80 ?97 06-27-2017 23:29 ? 81 ?97 06--2017 23:30 ? 87 ?100 06--2017 23:31 ? 83 ?99 06--2017 23:32 166/127 ? 82 ?97 06-27-2017 23:33 ? 82 ?98 06-27-2017 23:34 ? 83 ?96 06--2017 23:35 ? 86 ?97 06-27-2017 23:36 ? 83 ?97 06-27-2017 23:37 ? 81 ?95 06-27-2017 23:38 ? 84 ?96 06-27-2017 23:39 ? 83 ?96 06-27-2017 23:40 ? 81 ?96 06-27-2017 23:41 ? 80 ?98 06-27-2017 23:42 ? 81 ?97 06-27-2017 23:43 ? 83 ?98 06-27-2017 23:44 ? 81 ?98 06-27-2017 23:45 ? 81 ?98 --2017 23:46 ? 81 ?98 --2017 23:47 ? 84 ?98 04-21-2017 23:48 ? 87 ?98 04-21-2017 23:49 ? 83 ?97 04-21-2017 23:50 ? 82 ?96 04-21-2017 23:51 ? 86 ?97 04-21-2017 23:52 ? 83 ?99 04-21-2017 23:53 ? 83 ?96 04-21-2017 23:54 ? 82 ?96 04-21-2017 23:55 ? 80 ?97 04-21-2017 23:56 ? 79 ?97 04-21-2016 23:57 ? 80 ?96 04-21-2017 23:58 ? 81 ?97 04-21-2017 23:59 ? 80 ?96 04-22-2017 00:00 ? 79 ?97 04-22-2017 00:01 ? 80 ?96 04-22-2017 00:02 139/128 ? 80 ?98 04-22-2017 00:03 ? 81 ?99 04-22-2017 00:04 ? 80 ?96 04-22-2017 00:05 ? 80 ?97 04-22-2017 00:06 ? 79 ?97 04-22-2017 00:07 ? 80 ?97 04-22-2017 00:08 ? 79 ?98 04-22-2017 00:09 ? 78 ?97 04-22-2016 00:10 ? 79 ?97 04-22-2017 00:11 ? 78 ?96 04-22-2017 00:12 ? 78 ?96 04-22-2016 00:49 136/70 ?78 ?16 ?98 04-22-2017 02:14 ? 73 ?98 04-22-2017 02:15 ? 73 ?97 04-22-2017 02:16 ? 72 ?99 06-28-2017 02:17 ? 73 ?97 --2016 02:18 ? 73 ?97 --2017 02:19 ? 74 ?96 --2017 02:20 ? 73 ?98 --2017 02:21 ? 73 ?97 04-22-2017 02:22 ? 73 ?96 --2017 02:23 ? 72 ?97 --2017 02:24 ? 73 ?97 -28-2017 02:25 ? 73 ?97 -28-2017 02:26 ? 73 ?97 --2017 02:27 ? 73 ?96 06-28-2017 02:28 ? 72 ?98 06--2017 02:29 ? 73 ?97 --2017 02:30 ? 72 ?98 06--2017 02:31 ? 72 ?97 06-28-2017 02:32 148/63 ?71 ?97 04-22-2017 02:33 ? 76 ?97 --2017 02:34 ? 80 ?100 04-22-2017 02:35 ? 84 ?100 04-22-2016 02:36 ? 84 ?100 04-22-2017 02:37 ? 84 ?100 04-22-2017 02:38 ? 80 ?100 04-22-2017 02:39 ? 79 ?99 --2017 02:40 ? 79 ?99 04-22-2017 02:41 ? 78 ?99 04-22-2017 02:42 ? 77 ?98 04-22-2017 02:43 ? 79 ?96 04-22-2016 02:44 ? 79 ?96 04-22-2017 02:45 ? 76 ?95 04-22-2017 02:46 ? 77 ?97 04-22-2017 02:47 ? 76 ?96 04-22-2017 02:48 ? 75 ?96 04-22-2016 02:49 ? 75 ?97 04-22-2016 02:50 ? 76 ?97 04-22-2016 02:51 ? 75 ?96 04-22-2016 02:52 ? 76 ?97 04-22-2016 02:53 ? 74 ?99 04-22-2016 02:54 ? 74 ?97 04-22-2016 02:55 ? 72 ?97 04-22-2016 02:56 ? 73 ?96 04-22-2017 02:57 ? 77 ?99 04-22-2017 02:58 ? 81 ?97 04-22-2017 02:59 ? 81 ?99 Total Volume Transfused: 350 mL Transfusion Reaction Indicated: NO us Not In File Miscellaneous BLOOD BANK PRODUCT ORD ERABLES Final Result [facility] [address] [place] [address] * (ABNORMAL) CBC without differential (04/22/2017 1:06 AM CDT) [facility] WBC 8.82 3.80 - 9.90 K/cumm [facility] RBC 3.51(L) 3.90 - 5.20 M/cumm [facility] Hgb 7.9(L) 11.9 - 15.5 g/dL [facility] Hct 25.0(L) 35.6 - 45.5 % [facility] MCV 71.2(L) 81.3 - 96.[address] [facility] MCH 22.5(L) 27.1 - 33.[address] [facility] MCHC 31.6(L) 32.3 - 35.7 g/dL [facility] RDW CV 23.9(H) 11.1 - 14.9 % [facility] RDW SD 57.2(H) 35.7 - 48.[address] [facility] NRBC 0.0 0.0 - 0.2 % [facility] NRBC abs 0.00 0.00 - 0.01 K/cumm [facility] Plt 194 150 - 400 K/cumm [facility] MPV 10.3 9.1 - 12.[address] [facility] Blood specimen (specimen) 04/22/2017 1:06 AM CDT 04/22/2017 1:13 AM CDT Notinfile Unknown LAB BLOOD ORDERABLES Final Res ult Performing Organization Address City/[facility]/ZIP Co de Phone Number [facility] Department [place] [address] * DISCHARGE LABORATORY CUMULATIVE REPORT (04/22/2017 12:00 AM CDT) Narrative 04/22/2017 12:00 AM CDT Ordered by an unspecified provider. Historical Provider MD LAB BLOOD ORDERABLES Ashley l Result * (ABNORMAL) aPTT (04/21/2017 7:13 PM CDT) aPTT 37.6(H) 25.0 - 37.[address] [facility] Comment: Interpretive Data Therapeutic heparin range:60.0 - 94.0 sec based on correlation with therapeutic heparin activity range of 0.3 -0.7 Units/mL. Current interpretive data was last revised on 2011. Blood specimen (specimen) 04/21/2017 7:13 PM CDT 04/21/2017 8:54 PM CDT Perla Alvarez JINGLE WRITER LAB BLOOD ORDERABLES Final Result Performing Organization Address City/[facility]/ZIP Co de Phone Number [facility] Department [place] [address] * (ABNORMAL) Protime-INR (04/21/2017 7:13 PM CDT) PT 26.0(H) 9.2 - 14.[address] [facility] INR 2.24(H) 0.81 - 1.[address] [facility] Comment: Interpretive Data Inpatient therapeutic ranges* Atrial fibrillation ?2.0-3.0 INR Venous thrombo-embolism ?2.0-3.0 INR Bioprosthetic heart valve ?* Mechanical heart valve, bileaflet or tilting disk,aortic position ? 2.0-3.0 INR All other,or bileaflet or tilting disk, in mitral position ? 2.5-3.5 INR *See the pharmacy resource directory (PHRED) for an updated copy of the Tool Book at [email or web address]/pharmacy.nsf Current Interpretive Data was last revised 2012. Blood specimen (specimen) 04/21/2017 7:13 PM CDT 04/21/2017 8:54 PM CDT us Perla Alvarez NP LAB BLOOD ORDERABLES Final Result [facility] Department [place] [address] * XR Knee 4+ VW (04/21/2017 5:38 PM CDT) Anatomical Region Laterality Modality N/A Radiographic Zhane ging 04/21/2017 5:38 PM CDT Narrative 04/21/2017 5:38 PM CDT DYAN CASEY M.D. FINAL REPORT ACC# ??Date Time ??Exam [id number] Apr 21, 2017 12:38:00 [id number] Knee Complete min 4 views R EXAMINATION: ?Right knee complete minimum 4 views HISTORY: ??Infected right knee arthroplasty FINDINGS: ?? AP, lateral, bilateral oblique views of the right knee were obtained. Comparison is made to examination April 17, 2017. There are postsurgical changes following explantation of a right knee arthroplasty with placement of an antibiotic spacer. The alignment is unchanged. There is no acute fracture. There is a moderate joint effusion with decreased soft tissue gas in the operative bed. There is anterior knee swelling. IMPRESSION: ?? 1. Unchanged explanted right knee arthroplasty with placement of an antibiotic cement spacer. Requested By: PERLA ALVAREZ Dictated By: ?? DYAN CASEY M.D. ??on Apr 21 2017 12:46P This document has been electronically signed by: DYAN CASEY M.D. on Apr 21 2017 12:46P [id number] CASEY M.D. FINAL REPORT Attending: ??CHANDAN, ??YOUSIF Requesting: ??KIM, ??PERLA Requesting Fax: ?? Attending Fax: ?? Attending ID: ??[id number] Requesting ID: ??[id number] Report To 1 ID: ??[id number] ? Report To 1 Name: ??, ?? Report To 1 FAX: ?? NextGen Order #: ?? Procedure Note Miscellaneous, Not In File - 08/13/2017 DYAN CASEY M.D. FINAL REPORT ACC# Date Time Exam [id number] Apr 21, 2017 12:38:00 [id number] Knee Complete min 4 views R EXAMINATION: Right knee complete minimum 4 views HISTORY: Infected right knee arthroplasty FINDINGS: AP, lateral, bilateral oblique views of the right knee were obtained. Comparison is made to examination April 17, 2017. There are postsurgical changes following explantation of a right knee arthroplasty with placement of an antibiotic spacer. The alignment is unchanged. There is no acute fracture. There is a moderate joint effusion with decreased soft tissue gas in the operative bed. There is anterior knee swelling. IMPRESSION: 1. Unchanged explanted right knee arthroplasty with placement of an antibiotic cement spacer. Requested By: PERLA ALVAREZ Dictated By: DYAN CASEY M.D. on Apr 21 2017 12:46P This document has been electronically signed by: DYAN CASEY M.D. on Apr 21 2017 12:46P [id number] CASEY M.D. FINAL REPORT Attending: YOUSIF ETIENNE Requesting: PERLA ALVAREZ Requesting Fax: Attending Fax: Attending ID: [id number] Requesting ID: [id number] Report To 1 ID: [id number] Report To 1 Name: , Report To 1 FAX: NextGen Order #: Perla Alvarez JINGLE WRITER IMG XR PROCEDURES Edited R esult - Final * Packed Red Blood Cells 2 (04/21/2017 4:52 PM CDT) RBC, Leukoreduced PROD_CD :E0336 -1 RED BLOOD CELLS, LEUKOCYTES REDUCED UNIT_ID :[id number] -M ABORHP :A POS PROD_STAT :PRESUMED TRANSFUSED [facility] RBC, Leukoreduced PROD_CD :E0336 -1 RED BLOOD CELLS, LEUKOCYTES REDUCED UNIT_ID :[id number] -1 ABORHP :A POS PROD_STAT :PRESUMED TRANSFUSED [facility] Blood specimen (specimen) Perla Alvarez JINGLE WRITER LAB BLOOD ORDERABLES Edite d Result - Final [facility] Department [place] [address] * Antibody identification (04/21/2017 2:15 PM CDT) Antibody ID 2 Anti-E [facility] Antibody ID 1 Antibody of Undetermined Specificity [facility] Blood specimen (specimen) 04/21/2017 2:15 PM CDT 04/21/2017 2:15 PM CDT Perla Alvarez NP LAB BLOOD BANK TEST ORDERA BLES Final Result Performing Organization Address [facility] Co de Phone Number [facility] [place] [employer] [place] [address] * Rapid HIV ED POC (04/21/2017 1:17 PM CDT) [facility] Rapid HIV 1/2 Emergency Dept POC Negative Negative [facility] Blood specimen (specimen) 04/21/2017 1:17 PM CDT 04/22/2017 8:58 AM CDT Perla Alvarez NP LAB BLOOD ORDERABLES Final Result Performing Organization Address [facility] [place] [address] * (ABNORMAL) Type and screen (04/21/2017 12:57 PM CDT) Pathologist [facility] Yaneth, indirect Positive(A) [facility] ABO Rh A Positive [facility] Blood specimen (specimen) 04/21/2017 12:57 PM CDT 04/21/2017 1:16 PM CDT Perla Alvarez NP LAB BLOOD BANK TEST ORDERA BLES Edited Result - Final Performing Organization Address [facility] Co de Phone Number [facility] [place] [employer] [place] [address] * aPTT (04/21/2017 12:57 PM CDT) Pathologist [facility] aPTT See Comment 25.0 - 37.[address] [facility] Comment: Credited, specimen clotted. Interpretive Data Therapeutic heparin range:60.0 - 94.0 sec based on correlation with therapeutic heparin activity range of 0.3 -0.7 Units/mL. Current interpretive data was last revised on 2011. Blood specimen (specimen) 04/21/2017 12:57 PM CDT 04/21/2017 1:16 PM CDT Perla Alvarez NP LAB BLOOD ORDERABLES Edite d Result - Final Performing Organization Address City/[facility] Co de Phone Number [facility] Department [place] [address] * Protime-INR (04/21/2017 12:57 PM CDT) PT See Comment 9.2 - 14.0 sec [facility] Comment:Credited, specimen c lotted. INR See Comment 0.81 - 1.22 [facility] Comment: Credited, specimen clotted. Interpretive Data Inpatient therapeutic ranges* Atrial fibrillation ?2.0-3.0 INR Venous thrombo-embolism ?2.0-3.0 INR Bioprosthetic heart valve ?* Mechanical heart valve, bileaflet or tilting disk,aortic position ? 2.0-3.0 INR All other,or bileaflet or tilting disk, in mitral position ? 2.5-3.5 INR *See the pharmacy resource directory (PHRED) for an updated copy of the Tool Book at [email or web address]/pharmacy.nsf Current Interpretive Data was last revised 2012. Blood specimen (specimen) 04/21/2017 12:57 PM CDT 04/21/2017 1:16 PM CDT us Perla Alvarez NP LAB BLOOD ORDERABLES Edite d Result - Final Performing Organization Address City/[facility] Co de Phone Number [facility] Department [place] [address] * (ABNORMAL) Urinalysis reflex to microscopic (04/21/2017 12:57 PM CDT) [facility] Color, ur Yellow Yellow [facility] Clarity, ur Cloudy(A) Clear [facility] Specific gravity, ur 1.010 1.003 - 1.030 [facility] pH, ur 6.0 5.0 - 8.[address] [facility] Albumin, ur Negative Trace [facility] Glucose, ur ql Negative Negative [facility] Ketones, ur Negative Negative [facility] Bilirubin, ur Negative Negative [facility] Blood, ur Negative Negative [facility] Urobilinogen, ur 2.0(A) <2.0 mg/dL [facility] Nitrites, ur Negative Negative [facility] Leukocyte esterase, ur Negative Negative [facility] Urine 04/21/2017 12:5 7 PM CDT 04/21/2017 1:15 PM CDT us Perla Alvarez JINGLE WRITER LAB URINE ORDERABLES Final Result [facility] Department [place] [address] * (ABNORMAL) Lactate POC (04/21/2017 11:50 AM CDT) [facility] Lactate POC i-STAT <0.5(L) 0.7 - 2.2 mmol/L [facility] Blood specimen (specimen) 04/21/2017 11:50 AM CDT 04/21/2017 11:50 AM CDT us Notinfile Unknown LAB BLOOD ORDERABLES Final Res ult [facility] [place] [address] * (ABNORMAL) CRP (acute phase) (04/21/2017 11:33 AM CDT) [facility] CRP 203.0(H) 0.0 - 9.9 mg/L [facility] Blood specimen (specimen) 04/21/2017 11:33 AM CDT 04/21/2017 11:47 AM CDT Perla Alvarez NP LAB BLOOD ORDERABLES Edite d Result - Final Performing Organization Address [facility] de Phone Number [facility] [place] [address] * (ABNORMAL) Hepatic function panel (04/21/2017 11:33 AM CDT) AST 23 10 - 45 Units/L [facility] ALT 26 7 - 45 Units/L [facility] Alk phos 90 40 - 130 Units/L [facility] Bilirubin, total 0.5 0.1 - 1.2 mg/dL [facility] Bilirubin, direct <0.2 0.1 - 0.3 mg/dL [facility] Protein, pl 5.8(L) 6.5 - 8.5 g/dL [facility] Albumin 2.8(L) 3.5 - 5.0 g/dL [facility] Blood specimen (specimen) 04/21/2017 11:33 AM CDT 04/21/2017 11:47 AM CDT Perla Alvarez NP LAB BLOOD ORDERABLES Final Result Performing Organization Address [facility] de Phone Number [facility] [place] [address] * (ABNORMAL) Erythrocyte sedimentation rate (04/21/2017 11:33 AM CDT) Erythrocyte sedimentation rate 88(H) 0 - 35 mm/H [facility] Blood specimen (specimen) 04/21/2017 11:33 AM CDT 04/21/2017 11:47 AM CDT Perla Alvarez NP LAB BLOOD ORDERABLES Final Result Performing Organization Address City/[facility]/ZIP Co de Phone Number [facility] Department [place] [address] * Basic metabolic panel (04/21/2017 11:33 AM CDT) [facility] Sodium 137 135 - 145 mmol/L [facility] Potassium, pl 3.9 3.3 - 4.9 mmol/L [facility] Chloride 100 97 - 110 mmol/L [facility] CO2 28 22 - 32 mmol/L [facility] BUN 10 8 - 25 mg/dL [facility] Glucose 103 70 - 199 mg/dL [facility] Creatinine 0.86 0.60 - 1.10 mg/dL [facility] Calcium 8.5 8.5 - 10.3 mg/dL [facility] Anion gap 9 2 - 15 mmol/L [facility] Blood specimen (specimen) 04/21/2017 11:33 AM CDT 04/21/2017 11:47 AM CDT Perla Alvarez NP LAB BLOOD ORDERABLES Final Result Performing Organization Address [facility] de Phone Number [facility] Department [place] [address] * (ABNORMAL) Differential, auto (04/21/2017 11:33 AM CDT) [facility] Neutrophil pct 81.4 % [facility] Imm gran pct 0.7 % [facility] Lymphocyte pct 10.4 % [facility] Monocyte pct 6.0 % [facility] Eosinophil pct 1.4 % [facility] Basophil pct 0.1 % [facility] Neutrophil abs 5.70 1.70 - 6.50 K/cumm [facility] Imm gran abs 0.05 0.00 - 0.10 K/cumm [facility] Lymphocyte abs 0.73(L) 0.80 - 3.30 K/cumm [facility] Monocyte abs 0.42 0.20 - 0.80 K/cumm [facility] Eosinophil abs 0.10 0.00 - 0.50 K/cumm [facility] Basophil abs 0.01 0.00 - 0.10 K/cumm [facility] Blood specimen (specimen) 04/21/2017 11:33 AM CDT 04/21/2017 11:47 AM CDT us Perla Alvarez NP LAB BLOOD ORDERABLES Final Result [facility] [place] [address] * (ABNORMAL) CBC with auto differential (04/21/2017 11:33 AM CDT) Pathologist [facility] WBC 7.01 3.80 - 9.90 K/cumm [facility] RBC 3.08(L) 3.90 - 5.20 M/cumm [facility] Hgb 6.4(C) 11.9 - 15.5 g/dL [facility] Comment:Critical result call ed to and read back by KORIN ROBERSON RN on 04 21 2017 at 1201 to Francisca Arango. Hct 20.7(L) 35.6 - 45.5 % [facility] MCV 67.2(L) 81.3 - 96.[address] [facility] MCH 20.8(L) 27.1 - 33.[address] [facility] MCHC 30.9(L) 32.3 - 35.7 g/dL [facility] RDW CV 21.3(H) 11.1 - 14.9 % [facility] RDW SD 49.8(H) 35.7 - 48.[address] [facility] Plt 178 150 - 400 K/cumm [facility] MPV 10.4 9.1 - 12.[address] [facility] NRBC 0.3(H) 0.0 - 0.2 % [facility] NRBC abs 0.02(H) 0.00 - 0.01 K/cumm [facility] Blood specimen (specimen) 04/21/2017 11:33 AM CDT 04/21/2017 11:47 AM CDT us Perla M. Alvarez JINGLE WRITER LAB BLOOD ORDERABLES Edite d [place] [address] * Glucose POC (04/21/2017 10:56 AM CDT) Glucose, POC 99 70 - 199 mg/dL [facility] Blood specimen (specimen) 04/21/2017 10:56 AM CDT 04/21/2017 10:56 AM CDT us Notinfile Unknown POINT OF CARE TEST ORDERABLES Final Result Performing Organization Address [facility] de Phone Number [facility] [place] [employer] [place] [address] documented in this encounter Visit Diagnoses Not on filedocumented in this encounter Care Teams [employer] Sales Representative Relationship Specialty Start Date End Date Brittny Salazar MD [address] [address] PCP - General 05/15/09 05/11/17 documented as of this encounter
--- OUTSIDE RECORDS SUMMARY | 2024-10-31 03:54 | XMS_ITS | Encounter Summary ---
Author Organization [facility] Healthcare Address [address] [place] [address] Care Team Providers Care Field Recruiter Name Role Phone Kassidy Starr MD Primary Care Provider [phone] Encounter Details Date Type Department Care Team (Late st Contact Info) Description 08/31/2014 7:08 PM CURTAIN MENDER - 09/01/2014 6:24 PM CURTAIN MENDER Hospital Encounter [facility] Isabel Hamilton MD [address] [place] [address] [address] Other chest pain; Abnormal levels of other serum enzymes; Edema; Essential hypertension; Hypothyroidism; Type 2 or unspecified type diabetes mellitus; Pure hypertriglyceridemia ; Personal history of tobacco use, presenting hazards to health Social History Tobacco Use Types Packs/Day Years Used Date Smoking Tobacco: Never Comments Unknown Sex and Gender Information Value Date Recorded Sex Assigned at Not on file Legal Sex Female 1:04 AM CURTAIN MENDER Gender Identity Not on file Sexual Orientation Not on file documented as of this encounter Last Filed Vital Signs Vital Sign Reading Time Taken Comments Blood Pressure 186/89 09/01/2014 4:00 PM CURTAIN MENDER Pulse 60 09/01/2014 4:00 PM CURTAIN MENDER Temperature - - Respiratory Rate - - Oxygen Saturation - - Inhaled Oxygen Concentration - - Weight 107.8 kg (237 lb 10.5 oz) 2013 11:56 AM CURTAIN MENDER Height 162.6 cm (5' 4.02 ) 09/01/2014 1 1:56 AM CURTAIN MENDER Body Mass Index 40.77 09/01/2014 11:56 AM CURTAIN MENDER documented in this encounter Medications at Time of Discharge gabapentin (NEURONTIN) 300 mg capsule TAKE ONE CAPSULE 3 TIMES A DAY 10/13/2013 10/12/2018 documented as of this encounter H&P Notes * Provider, MD Clifford - 08/31/2014 12:00 AM CST HISTORY AND PHYSICAL Patient: JONNIE BANSAL Account: [id number] Room No: 2622-01 : 1945 Patient Type: [facility] Attend.: Isabel Gunn M.D. Admit Date: 08/31/2014 Dict.: Matilda Thompson M.D. Disch. Date: PRIMARY CARE PHYSICIAN Dr. Marilyn Starr. CHIEF COMPLAINT Chest pain and pressure. HISTORY OF PRESENT ILLNESS The patient is a 68-year-old female with a history of hypertension, diabetes, hyperlipidemia, past history of smoking, who presented to the emergency room complaining of intermittent midsternal chest pressure that began on Thursday which is two days ago. She reports that she has somebody sitting on her chest. She initially thought the pain would go away which was not subsiding and yesterday she felt like her pain was progressively getting worse which brought her to the emergency room. The patient had a stress test done a few years ago which was apparently normal according to the patient but no records are available at this time. The patient still reports to have chest pressure. The pressure is worse with movement, taking deep breaths and cough. No radiation of the pain. The patient also reports to have some shortness of breath which is at her baseline. She denied any orthopnea and denied any paroxysmal nocturnal dyspnea. The patient reports that her pain is pretty constant. She denied fever or chills. The patient does not have any past history of chronic obstructive pulmonary disease or pneumonia or asthma. The patient reports to have some pedal edema. Upon arrival to the emergency room, the patient had pain reproducible with movement and palpation. No diaphoresis, nausea was noted in the emergency room. She was admitted for acute myocardial infarction. REVIEW OF SYSTEMS The patient denied any changes in vision, blurry vision, double vision. The patient reports to have some headache. She denies ear problems, nasal congestion, stuffy nose or sore throat. He denies any excessive cough. The patient is somewhat short of breath. The patient had a past history of smoking. Positive for chest pain and pressure. She denies nausea, vomiting, diaphoresis, abdominal pain, diarrhea or constipation. Positive for pedal edema. Denied problems with urination. Denied skin rashes, suicidal or homicidal ideations. Denied any recent weight gain or weight loss. Denied generalized weakness or fatigue. PAST MEDICAL HISTORY Hypertension, diabetes, hyperlipidemia, hypothyroidism, past history of smoking. PAST SURGICAL HISTORY Hysterectomy, cholecystectomy, thyroidectomy, knee replacement surgery. FAMILY MEDICAL HISTORY Mom did not have any obvious medical problems. Dad had a history of heart attack in his 50s. Brother had a history of congestive heart failure. 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 She is an occasional wine drinker. ALLERGIES No known drug allergies. HOME MEDICATIONS She is on Celexa 20 mg once a day, multivitamins one tablet once a day, fish oil, Flonase nasal spray, Synthroid 100 mcg, vitamin B12 1000 mcg, aspirin 81 mg once a day, gabapentin 300 mg t.i.d., hydrochlorothiazide 12.5 mg once a day, losartan 60 mg once a day and Metformin 1000 mg once a day, metoprolol 200 mg orally daily, naproxen 500 mg two times daily as needed. Zolpidem 12.5 mg orally at bedtime for sleep. PHYSICAL EXAMINATION VITAL SIGNS: Temperature 97.1, heart rate 65, respirations 18, saturating 95% on room air. Blood pressure was 148/77. GENERAL: On examination, the patient is alert and oriented x3, not in apparent distress. HEENT: Pupils equal, round, and reactive to light and accommodation. NECK: Soft, supple, no lymphadenopathy. HEART: S1 and S2 are present. No murmurs. LUNGS: Clear to auscultation bilaterally. No crackles or wheezing is heard. ABDOMEN: Soft, nontender, nondistended, bowel sounds are present. EXTREMITIES: Mild pedal edema is present. MUSCULOSKELETAL: Restricted secondary to arthritis. NEUROLOGIC: No gross sensory or motor deficits noted. PSYCH: Normal affect and mood. SKIN: No obvious skin rashes noted. LABS Glucose 110, troponin x3 less than 0.04, magnesium 1.8, BNP was slightly elevated at 135, sodium 137, potassium 4, chloride 106, bicarbonate 30.6, glucose 130, BUN 16, creatinine 1.26. PT/INR is 13.4/1.06. APTT 34.9. WBC 4.74, hemoglobin 10.2, hematocrit 31.6, platelets are 179,000. Creatinine clearance was 36.41. Chest x-ray - portable - no acute pulmonary disease. ASSESSMENT AND PLAN A 68-year-old female who appears moderately obese. 1. Atypical chest pain. The patient definitely has significant risk factors including hypertension, diabetes, hyperlipidemia, past history of smoking, obesity, presented to the emergency room with chest pain and pressure. Also, the patient reports that her pain started when she was holding her grandkid. Definitely there is a suspicion for coronary artery disease with ischemic etiology versus chest wall pain. The patient reported that the pain was better with morphine. Will continue morphine p.r.n. for pain. The patient's acute myocardial infarction was ruled out with negative x3 troponins. Will order Lexiscan nuclear stress test to rule out any myocardial ischemia that is precipitating her presenting complaint. Also the patient has pain reproducible on palpation which goes in favor of costochondritis. The patient is on naproxen p.r.n. for pain. Also, the patient reports that the pain is worse with movement, bending, which puts her at risk for pericarditis, even though the patient does not have any recent viral illness. Will rule out after stress test. There are no diffuse ST-T elevations noted per the EKG. The patient is on NSAIDs. 2. Elevated BNP, pedal edema. The patient had a past history of valvular cardiac abnormalities. The patient is not aware of what kind and no records are available at this time to review. Also, will get an echocardiogram along with a stress test today to see if she has any congestive heart failure. Will start the patient on a low dose of Lasix. The patient is on appropriate medical management including beta-cora, ARB and diuretic, hydrochlorothiazide. Will continue the same medications. 3. Hypertension, stable. Will continue home medications. 4. Diabetes mellitus. The patient is on Metformin at home. Will hold on to Metformin for now. Will order Accu-Cheks AC and HS and also start her on low dose sliding scale. 5. Hypertriglyceridemia. The patient is on fish oil. Will encourage the patient to start taking statins. 6. Past history of smoking. 7. Hypothyroidism. Will continue Synthroid 100 mcg. 8. Deep venous thrombosis prophylaxis with Lovenox. 9. GI prophylaxis with Protonix. Yolanda Al TD: 09/01/2014 11:45 CC: Dr. Marilyn Starr Authenticated by Matilda Thompson MD On 09/01/2014 05:27:09 PM * Provider, MD Clifford - 08/31/2014 12:00 AM CST HISTORY AND PHYSICAL Patient: JONNIE BANSAL Account: [id number] Room No: 2622-01 : 1945 Patient Type: [facility] Attend.: Isabel Gunn M.D. Admit Date: 08/31/2014 Dict.: Matilda Thompson M.D. Disch. Date: ADDENDUM Addendum/[facility]/[id number] , 1436 DISCHARGE CONDITION Stable. DISCHARGE DESTINATION Home. DISCHARGE FOLLOWUP Follow up with primary care physician in one week. DISCHARGE MEDICATIONS Please see discharge medication reconciliation sheet. The patient had stress test done today which showed no left ventricular ischemia or infarction, normal left ventricular ejection fraction of 65%, no left ventricular wall motion abnormality. DISCHARGE INSTRUCTIONS Watch for any worsening signs and symptoms of chest pain, shortness of breath, to call primary care physician if she notices any. Acute myocardial infarction is ruled out at this time. TESTS PENDING AT THIS TIME None. TOTAL TIME SPENT 35 minutes. Yolanda Al TD: 09/02/2014 14:10 CC: Dr. Marilyn Starr Authenticated by Matilda Thompson MD On 09/04/2014 08:26:00 AM documented in this encounter Plan of Treatment Not on file documented as of this encounter Procedures Procedure Name Priority Date/Time Associated Diagnosis Comments BLOOD GLUCOSE Routine 09/01/2014 5:11 PM CURTAIN MENDER NM MPI SPECT (REST AND/OR STRESS) MULTIPLE STUDIES Routine 09/01/2014 2:35 PM CURTAIN MENDER BLOOD GLUCOSE Routine 09/01/2014 12:07 PM CURTAIN MENDER STRESS ECHO EXERCISE W NO DOPPLER/CF WO CONTRAST Routine 09/01/2014 12:00 PM CURTAIN MENDER BLOOD GLUCOSE Routine 09/01/2014 8:26 AM CURTAIN MENDER SERUM TROPONIN I Routine 09/01/2014 1:45 AM CURTAIN MENDER DISCHARGE LABORATORY CUMULATIVE REPORT Routine 09/01/2014 12:00 AM CURTAIN MENDER SERUM TROPONIN I Routine 08/31/2014 8:35 PM CURTAIN MENDER SERUM MAGNESIUM Routine 08/31/2014 8:29 PM CURTAIN MENDER SERUM COMPREHENSIVE METABOLIC PANEL Routine 08/31/2014 8:29 PM CURTAIN MENDER PLASMA PROTHROMBIN TIME (PT) Routine 08/31/2014 8:29 PM CURTAIN MENDER PLASMA PARTIAL THROMBOPLASTIN TIME (PTT) Routine 08/31/2014 8:29 PM CURTAIN MENDER BLOOD WBC CELL MORPHOLOGIC EXAM, AUTO Routine 08/31/2014 8:29 PM CURTAIN MENDER BLOOD CELL COUNT (CBC) Routine 4 8:29 PM CURTAIN MENDER XR CHEST PORTABLE Routine 08/31/2014 8:1 8 PM CURTAIN MENDER SERUM TROPONIN I Routine 08/31/2014 2:29 PM CURTAIN MENDER BLOOD B-TYPE NATRIURETIC PEPTIDE (BNP) Routine 08/31/2014 2:29 PM CURTAIN MENDER ELECTROCARDIOGRAPHY (ECG) 08/31/2014 documented in this encounter Results * Blood glucose (09/01/2014 5:11 PM CURTAIN MENDER) Glucose, bld 96 70 - 199 mg/dl HISTORICAL RESULTS Blood specimen (specimen) 09/01/2014 5:11 PM CURTAIN MENDER Teo Thayer MD LAB BLOOD ORDERABLES Final R esult HISTORICAL RESULTS * NM MPI Spect (Rest And Stress) Multiple Studies (09/01/2014 2:35 PM CURTAIN MENDER) Anatomical Region Laterality Modality Body N/A Nuclear Medicine 09/01/2014 2:35 PM CURTAIN MENDER Narrative 09/01/2014 3:21 PM CURTAIN MENDER MR NM Myocard Perf Rest/Stress ??Acc#: ??[id number] DATE OF EXAM: ??Aug ??2013 CLINICAL HISTORY: Angina. RESULT: The patient received 10.7mCi Tc 99m Myoview IV for rest images of the heart. ??After an appropriate delay, the patient underwent a pharmacological stress test under the supervision of Dr. Lanier; received 0.4mg Lexiscan IV. ??The patient then received 31.2mCi Tc 99m Myoview IV for stress images. ??Stress and rest SPECT images were obtained in three projections. No fixed or reversible left ventricular myocardial perfusion defects are seen. SPECT MUGA: Following intravenous injection of 31.2mCi Tc 99m Myoview IV, ventricular volumes were calculated from vertical and horizontal longitudinal gated SPECT perfusion images. ??Left ventricular ejection fraction is calculated to be 65% (normal 50- 75%). ??Cine images demonstrate no left ventricular wall motion abnormality. IMPRESSION: 1. NO LEFT VENTRICULAR ISCHEMIA OR INFARCTION. 2. NORMAL LEFT VENTRICULAR EJECTION FRACTION OF 65%. 3. NO LEFT VENTRICULAR WALL MOTION ABNORMALITY ON CINE IMAGES. Interpreting Physician: ??DR BRENDA ALEGRIA M.D. ??Read on: ??Nov ??2013 2:58P Transcribed by: ??mrr ??On: Nov ??2013 ??3:03P Approved Electronically by: ??RAJI Guerrero, DR GUTIERREZ ??on: ??Nov ??2013 3:21P Ordering DR: ??NINFA Attending DR: ISABEL GUNN Procedure Note Provider, MD Clifford - 02/15/2017 MR NM Myocard Perf Rest/Stress Acc#: [id number] DATE OF EXAM: Sep 01 2014 CLINICAL HISTORY: Angina. RESULT: The patient received 10.7mCi Tc 99m Myoview IV for rest images of theheart. After an appropriate delay, the patient underwent apharmacological stress test under the supervision of Dr. Lanier; received 0.4mg Lexiscan IV. The patient then received 31.2mCi Tc 99m Myoview IVfor stress images. Stress and rest SPECT images were obtained in threeprojections. No fixed or reversible left ventricular myocardial perfusiondefects are seen. SPECT MUGA: Following intravenous injection of 31.2mCi Tc 99m Myoview IV, ventricularvolumes were calculated from vertical and horizontal longitudinal gatedSPECT perfusion images. Left ventricular ejection fraction is calculatedto be 65% (normal 50-75%). Cine images demonstrate no left ventricularwall motion abnormality. IMPRESSION: 1. NO LEFT VENTRICULAR ISCHEMIA OR INFARCTION. 2. NORMAL LEFT VENTRICULAR EJECTION FRACTION OF 65%. 3. NO LEFT VENTRICULAR WALL MOTION ABNORMALITY ON CINE IMAGES. Interpreting Physician: DR BRENDA ALEGRIA M.D. Read on: Sep 01 20142:58P Transcribed by: janis On: Sep 01 2014 3:03P Approved Electronically by: RAJI Guerrero, DR GUTIERREZ on: Sep 01 20143:21P Ordering DR: NINFA Attending DR: ISABEL GUNN us Historical Provider MD MARTINS NM PROCEDURES Final R esult * Blood glucose (09/01/2014 12:07 PM CURTAIN MENDER) Glucose, bld 108 70 - 199 mg/dl HISTORICAL RESULTS Blood specimen (specimen) 09/01/2014 12:07 PM CURTAIN MENDER Teo Thayer MD LAB BLOOD ORDERABLES Final R esult HISTORICAL RESULTS * Echo Exercise Stress No Doppler/CF WO Contrast (09/01/2014 12:00 PM CURTAIN MENDER) Anatomical Region Laterality Modality Ultrasound 09/01/2014 12:0 0 PM CURTAIN MENDER Narrative 09/04/2014 5:27 PM CURTAIN MENDER STRESS TEST LEXISCAN ??Acc#: ??[id number] DATE OF EXAM: ??Aug ?2013 CLINICAL HISTORY: Chest pain. RESULT: STRESS TEST REPORT INDICATION: ??Jonnie Bansal is a 68 year old female with arm, neck, back and chest discomfort. ??Risk factors for coronary artery disease include: age over 55, family history of coronary artery disease, diabetes, dyslipidemia, obesity, hypertension and also remote smoking history. Resting ECG shows sinus rhythm at 59 beats per minute with a normal axis. PROCEDURE: ??The patient underwent intravenous regadenoson followed by intravenous Cardiolite. ??There were no dysrhythmias during the infusion or in recovery. ??There was some baseline wandering near the end of exercise. ??No chest pain. ??No EKG changes noted to suggest ischemia. Blood pressure was 214/91 in the beginning of exercise and it went down slight to 176/78 in recovery. ??There were no significant pauses. IMPRESSION: THUS, NUCLEAR IMAGES WILL BE AN IMPORTANT COMPONENT AND THIS PORTION WILL BE INTERPRETED BY A RADIOLOGIST LATER TODAY. Interpreting Physician: ??DR LADI LANIER M.D. ??Read on: ??Nov ??2013 6:29P Transcribed by: ??mrr ??On: Aug ??2013 ??6:31P Approved Electronically by: ??ROSAS Guerrero, DR BLEDSOE ??on: ??Sep 04 2014 5:27P Ordering DR: ??NARRAVULA Attending DR: ISABEL GUNN Procedure Note Provider, MD Clifford - 02/15/2017 STRESS TEST LEXISCAN Acc#: [id number] DATE OF EXAM: Sep 01 2014 CLINICAL HISTORY: Chest pain. RESULT: STRESS TEST REPORT INDICATION: Jonnie Bansal is a 68 year old female with arm, neck, back and chest discomfort. Risk factors for coronary artery disease include: age over 55, family history of coronary artery disease, diabetes,dyslipidemia, obesity, hypertension and also remote smoking history.Resting ECG shows sinus rhythm at 59 beats per minute with a normalaxis. PROCEDURE: The patient underwent intravenous regadenoson followed byintravenous Cardiolite. There were no dysrhythmias during the infusion wilbur recovery. There was some baseline wandering near the end of exercise.No chest pain. No EKG changes noted to suggest ischemia. Blood pressurewas 214/91 in the beginning of exercise and it went down slight to 176/78in recovery. There were no significant pauses. IMPRESSION: THUS, NUCLEAR IMAGES WILL BE AN IMPORTANT COMPONENT AND THIS PORTION WILLBE INTERPRETED BY A RADIOLOGIST LATER TODAY. Interpreting Physician: DR LADI LANIER M.D. Read on: Sep 01 20146:29P Transcribed by: janis On: Sep 01 2014 6:31P Approved Electronically by: ROSAS Guerrero, DR BLEDSEO on: Sep 04 20145:27P Ordering DR: NINFA Attending DR: ISABEL GUNN Historical Provider MD CV ECHO PROCEDURES Final Result * Blood glucose (09/01/2014 8:26 AM CURTAIN MENDER) Glucose, bld 110 70 - 199 mg/dl HISTORICAL RESULTS Blood specimen (specimen) 09/01/2014 8:26 AM CURTAIN MENDER Result [facility] Teo Thayer MD LAB BLOOD ORDERABLES [facility] Performing Organization Address City/[facility] Co de Phone Number HISTORICAL RESULTS * Serum troponin I (09/01/2014 1:45 AM CURTAIN MENDER) Troponin I <0.04 0.00 - 0.10 ng/ml HISTORICAL RESULTS Serum 09/01/2014 1:45 AM CURTAIN MENDER Narrative HISTORICAL RESULTS - 09/01/2014 2:28 AM CURTAIN MENDER NEGATIVE: ??0.00 - 0.10 NG/ML INDETERMINATE: ??0.11 - 0.50 NG/ML POSITIVE: ??GREATER THAN 0.50 NG/ML Teo Thayer MD LAB BLOOD ORDERABLES Final R esult Performing Organization Address City/State/[facility] Co de Phone Number HISTORICAL RESULTS * Discharge Laboratory Cumulative Report (09/01/2014 12:00 AM CURTAIN MENDER) 09/01/2014 Narrative HISTORICAL RESULTS - 09/02/2014 2:47 AM CURTAIN MENDER Patient No: [id number] ? [facility] Patient Name: JONNIE BANSAL ? [facility] Age: 68 YRS ?: 1945 ?Sex:F ?[address] )[phone] ?? Adm Dt: 08/31/2014 ?[place], [place] ??[address] Created: 09/02/2014 ??0247 ?? Pt. Type: B ? Discharge Dt: 09/01/2014 ? Pathologists: Lia Pierson MD Admit Dr. Lynn Dr: ISABEL GUNN MD ? BLOOD CELL COUNTS ?Collection Date: ?08/31/14 ?Collection Time: ?2028 ? Ref Range: ?? Units: [4.00-10.50] /CMM ? WBC X 10^3 ?4.74 [4.20-5.40] ??/CMM ? RBC X 10^6 ?5.13 [12.0-16.0] ??G/DL ? HGB ? 10.2 L [37.0-47.0] ??% ?HCT ? 31.6 L [77.0-97.0] ??FL ? MCV ? 61.6 L [23.0-34.0] ??PG ? MCH ? 19.9 L [32.0-36.0] ??% ?MCHC ?32.3 [11.5-14.5] ??% ?RDW ? 16.0 H [150-400] ?? /CMM ? PLT X 10^3 ? 179 ?BLOOD CELL DIFFERENTIAL ?Collection Date: ?08/31/14 ?Collection Time: ?2029 ? Ref Range: ?? Units: [54.0-69.0] ??% ?NEUTROPHILS ? 47.6 L [25.0-33.0] ??% ?LYMPHOCYTES ? 41.1 H [0.0-13.0] ??% ?MONOCYTES ?6.1 [0.0-10.0] ??% ?EOSINOPHILS ?4.2 [0.0-1.0] ?? % ?BASOPHILS ?0.8 ? /CMM ? A LYMPHOCYTE ? 2.0 [0.0-1.0] ?? % ?IMM GRAN % ? 0.2 [0.00-0.02] ??/CMM ? A IMM GRAN ?0.01 [1.1-1.9] ?? /CMM ? A MONOCYTE ? 0.3 L [1.4-6.5] ?? /CMM ? A NEUTROPHIL ? 2.3 [0.0-0.7] ?? /CMM ? A EOSINOPHIL ? 0.2 [0.0-0.2] ?? /CMM ? A BASOPHIL ? 0.0 Footnotes and Symbols: L = Low, H = High ?? CONTINUED ?Page: ?? 1 Patient No: [id number] ? [facility] Patient Name: JONNIE BANSAL ? [facility] Age: 68 YRS ?: 1945 ?Sex:F ?[address] )[phone] ?? Adm Dt: 08/31/2014 ?[place] ??[address] Created: 09/02/2014 ??0247 ?? Pt. Type: B ? Discharge Dt: 09/01/2014 ? Pathologists: Lia Pierson MD Admit Attend : ISABEL GUNN MD ? GENERAL CHEMISTRY ?Collection Date: ?09/01/14 ? 09/01/14 ?Collection Time: ?1711 ? 1207 ? Ref Range: ?? Units: ??[70-199] ?? MG/DL ?POC GLUCOSE ? 96 ?108 ?Collection Date: ?09/01/14 ? 08/31/14 ?Collection Time: ?0826 ? 2029 ? Ref Range: ?? Units: [< ?100] ?? pg/ml ?BNP ? 135 Hf [134-143] ?? MMOL/L ? SODIUM ?137 ??[70-199] ?? MG/DL ?POC GLUCOSE ?110 [3.4-5.0] ?? MMOL/L ? POTASSIUM ? 4.0 [99.0-108.0] MMOL/L ? CHLORIDE ?106.0 [23.0-32.0] ??MMOL/L ? TOTAL CO2 ?30.6 ?? [7-14] ?MMOL/L ? ANION GAP ? 4 L ??[70-199] ?? MG/DL ?GLUCOSE ? 130 f [6.4-8.0] ?? G/DL ? TOTAL PROTEIN ? 6.5 [3.3-4.5] ?? G/DL ? ALBUMIN ? 3.5 [1.1-1.8] ?A/G RATIO ? 1.2 [8.6-9.8] ?? MG/DL ?CALCIUM ? 8.8 [0.0-1.1] ?? MG/DL ?BILI TOTAL ?0.5 ??[44-125] ?? U/L ?ALK PHOS ? 93 Footnotes and Symbols: L = Low, H = High, f = Footnote BNP (08/04/08 -- Current) BNP REFERENCE RANGE <100 pg/ml GLUCOSE (09/27/13 -- Current) Note:The glucose is assumed non fasting Fastin-99 mg/dl Random: 70-199 mg/dl Either a fasting glucose > 126 mg/dL or a random glucose > 200 mg/dL plus symptoms is diagnostic of diabetes when confirmed on another day. Fasting values > 100 mg/dl but < 125 mg/dL are diagnostic of impaired fasting glucose. New reference ranges implemented 09/05/2013. ?? CONTINUED ?Page: ?? 2 Patient No: [id number] ? [facility] Patient Name: JONNIE BANSAL ? [facility] Age: 68 YRS ?: 1945 ?Sex:F ?[address] )[phone] ?? Adm Dt: 08/31/2014 ?[place], [place] ??[address] Created: 09/02/2014 ??0247 ?? Pt. Type: B ? Discharge Dt: 09/01/2014 ? Pathologists: Lia Pierson MD Admit Attend Dr: ISABEL GUNN MD ? GENERAL CHEMISTRY ?Collection Date: ?09/01/14 ? 08/31/14 ?Collection Time: ?825 ? 2029 ? Ref Range: ?? Units: ?? [5-40] ?U/L ?AST(SGOT) ?16 f ??[15-70] ?U/L ?ALT(SGPT) ?22 f [6.0-23.0] ??MG/DL ?BUN ?16.0 ??[10-20] ? B/C RATIO ?13 [0.60-1.30] ??MG/DL ?CREATININE ? 1.26 [1.5-2.2] ?? MG/DL ?MAGNESIUM ? 1.8 ? CARDIAC CHEMISTRY ?Collection Date: ?09/01/14 ? 09/01/14 ?Collection Time: ?0745 ? 0235 ? Ref Range: ?? Units: [0.00-0.10] ??NG/ML ?TROPONIN I ? <0.04 f ?<0.04 f Footnotes and Symbols: f = Footnote AST(SGOT) (03/09/14 -- Current) ALT(SGPT) (05/17/13 -- Current) TROPONIN I (08/21/11 -- Current) NEGATIVE: ??0.00 - 0.10 NG/ML INDETERMINATE: ??0.11 - 0.50 NG/ML POSITIVE: ??GREATER THAN 0.50 NG/ML ?? CONTINUED ?Page: ?? 3 Patient No: [id number] ? [facility] Patient Name: JONNIE BANSAL ? [facility] Age: 68 YRS ?: 1945 ?Sex:F ?[address] )[phone] ?? Adm Dt: 08/31/2014 ?[place], [place] ??[address] Created: 09/02/2014 ??0247 ?? Pt. Type: B ? Discharge Dt: 09/01/2014 ? Pathologists: Lia Pierson MD Admit Attend Dr: ISABEL GUNN MD ? CARDIAC CHEMISTRY ?Collection Date: ?08/31/14 ?Collection Time: ?2028 ? Ref Range: ?? Units: [0.00-0.10] ??NG/ML ?TROPONIN I ? <0.04 f Footnotes and Symbols: f = Footnote TROPONIN I (08/21/11 -- Current) NEGATIVE: ??0.00 - 0.10 NG/ML INDETERMINATE: ??0.11 - 0.50 NG/ML POSITIVE: ??GREATER THAN 0.50 NG/ML ?? CONTINUED ?Page: ?? 4 Patient No: [id number] ? [facility] Patient Name: JONNIE BANSAL ? [facility] Age: 68 YRS ?: 1945 ?Sex:F ?[address] )[phone] ?? Adm Dt: 08/31/2014 ?[place] ??[address] Created: 09/02/2014 ??0247 ?? Pt. Type: B ? Discharge Dt: 09/01/2014 ? Pathologists: Lia Pierson MD Admit Attend Dr: ISABEL GUNN MD ?COAGULATION ? Units: ?? PROTIME ?INR ?APTT PAT ? Low: ??[10.9-14.8] ? [< ?? 36.0] ? Ref Range: ? SECS ?SECS ? 08/31/142028 ?13.4 ? 1.06 f ? 34.9 Footnotes and Symbols: f = Footnote INR (05/14/00 -- Current) RECOMMENDED RANGES FOR PROTIME INR: NOTE: THE INR HAS BEEN VALIDATED ONLY FOR PATIENTS ON STABLE ORAL ?ANTICOAGULANT THERAPY. ?2.0 - 3.0 ??PROPHYLAXIS OF VENOUS THROMBOSIS (HIGH RISK SURGERY) ?2.0 - 3.0 ??TREATMENT OF VENOUS THROMBOSIS ?2.0 - 3.0 ??TREATMENT OF PULMONARY EMBOLISM ?2.0 - 3.0 ??PREVENTION OF SYSTEMIC EMBOLISM ? TISSUE HEART VALVES ? AMI (TO PREVENT SYSTEMIC EMBOLISM)* ? VALVULAR HEART DISEASE ? ATRIAL FIBRILLATION ?2.5 - 3.5 ??MECHANICAL PROSTHETIC VALVES (HIGH RISK) ?2.0 - 3.0 ??BILEAFLET MECHANICAL VALVE IN AORTIC POSITION *If oral anticoagulant therapy is elected to prevent recurrent myocardial infarction, an INR of 2.5 to 3.5 is recommended, consistent with Food and Drug Administration recommendations. ?? END OF CHART ? Page: ?? 5 us Historical Provider LAB BLOOD ORDERABLES Ashley l Result Performing Organization Address [facility] de Phone Number HISTORICAL RESULTS * Serum troponin I (08/31/2014 8:35 PM CURTAIN MENDER) Troponin I <0.04 0.00 - 0.10 ng/ml HISTORICAL RESULTS Serum 08/31/2014 8:35 PM CURTAIN MENDER Narrative HISTORICAL RESULTS - 08/31/2014 9:17 PM CURTAIN MENDER NEGATIVE: ??0.00 - 0.10 NG/ML INDETERMINATE: ??0.11 - 0.50 NG/ML POSITIVE: ??GREATER THAN 0.50 NG/ML Teo Thayer MD LAB BLOOD ORDERABLES Final R esult Performing Organization Address [facility] de Phone Number HISTORICAL RESULTS * Plasma partial thromboplastin time (PTT) (08/31/2014 8:29 PM CURTAIN MENDER) APTT 34.9 -<36. seconds HISTOR ICAL RESULTS Plasma 08/31/2014 8:29 PM CURTAIN MENDER Historical Provider LAB BLOOD ORDERABLES Ashley garcia Result Performing Organization Address [facility] de Phone Number HISTORICAL RESULTS * Plasma prothrombin time (PT) (08/31/2014 8:29 PM CURTAIN MENDER) Prothrombin time (PT) 13.4 10.9 - 14.8 seconds HISTORICAL RESULTS INR 1.06 HISTORICAL RESULTS Comment: RECOMMENDED RANGES FOR PROTIME INR: NOTE: THE INR HAS BEEN VALIDATED ONLY FOR PATIENTS ON STABLE ORAL ?ANTICOAGULANT THERAPY. ?2.0 - 3.0 ??PROPHYLAXIS OF VENOUS THROMBOSIS (HIGH RISK SURGERY) ?2.0 - 3.0 ??TREATMENT OF VENOUS THROMBOSIS ?2.0 - 3.0 ??TREATMENT OF PULMONARY EMBOLISM ?2.0 - 3.0 ??PREVENTION OF SYSTEMIC EMBOLISM ? TISSUE HEART VALVES ? AMI (TO PREVENT SYSTEMIC EMBOLISM)* ? VALVULAR HEART DISEASE ? ATRIAL FIBRILLATION ?2.5 - 3.5 ??MECHANICAL PROSTHETIC VALVES (HIGH RISK) ?2.0 - 3.0 ??BILEAFLET MECHANICAL VALVE IN AORTIC POSITION *If oral anticoagulant therapy is elected to prevent recurrent myocardial infarction, an INR of 2.5 to 3.5 is recommended, consistent with Food and Drug Administration recommendations. Plasma 08/31/2014 8:29 PM CURTAIN MENDER Historical Provider LAB BLOOD ORDERABLES Ashley garcia Result Performing Organization Address [facility] de Phone Number HISTORICAL RESULTS * Serum magnesium (08/31/2014 8:29 PM CURTAIN MENDER) Pathologist [facility] Magnesium 1.8 1.5 - 2.2 mg/dl HISTORICAL RESULTS Serum 08/31/2014 8:29 PM CURTAIN MENDER Historical Provider LAB BLOOD ORDERABLES Ashley garcia Result Performing Organization Address [facility] de Phone Number HISTORICAL RESULTS * (ABNORMAL) Blood cell count (CBC) (08/31/2014 8:29 PM CURTAIN MENDER) WBC 4.7 4.0 - 10.5 K/cumm HISTORICAL RESULTS RBC 5.13 4.20 - 5.40 M/cumm HISTORICAL RESULTS Hgb 10.2(L) 12.0 - 16.0 g/dl HISTORICAL RESULTS Hct 31.6(L) 37.0 - 47.0 % HISTORICAL RESULTS MCV 61.6(L) 77.0 - 97.0 fl HISTORICAL RESULTS MCH 19.9(L) 23.0 - 34.0 pg HISTORICAL RESULTS MCHC 32.3 32.0 - 36.0 g/dl HISTORICAL RESULTS Rdw 16.0(H) 11.5 - 14.5 % HISTORICAL RESULTS Platelets 179 150 - 400 K/cumm HISTORICAL RESULTS MPV 8.9 7.4 - 10.4 fl HISTORICAL RESULTS Blood specimen (specimen) 08/31/2014 8:29 PM CURTAIN MENDER Historical Provider LAB BLOOD ORDERABLES Ashley l Result Performing Organization Address City/[facility] Co de Phone Number HISTORICAL RESULTS * (ABNORMAL) Blood WBC cell morphologic exam, auto (08/31/2014 8:29 PM CURTAIN MENDER) Lymphocytes 41.1(H) 25.0 - 33.0 % HISTORICAL RESULTS Monos 6.1 0.0 - 13.0 % HISTORICAL RESULTS Neutrophils 47.6(L) 54.0 - 69.0 % HISTORICAL RESULTS Eosinophils 4.2 0.0 - 10.0 % HISTORICAL RESULTS Basophils 0.8 0.0 - 1.0 % HISTORICAL RESULTS Immature granulocytes 0.2 0.0 - 1.0 % HISTORICAL RESULTS Lymphocytes, abs 2.0 1.2 - 3.4 K/cumm HISTORICAL RESULTS Monocytes, absolute 0.3(L) 1.1 - 1.9 K/cumm HISTORICAL RESULTS Neutrophils, abs 2.3 1.4 - 6.5 K/cumm HISTORICAL RESULTS Eosinophils, abs 0.2 0.0 - 0.7 cells/cum m HISTORICAL RESULTS Basophils, abs 0.0 0.0 - 0.2 K/cumm HISTORICAL RESULTS Immature granulocyte, abs 0.0 0.0 - 0.0 K/cumm HISTORICAL RESULTS Blood specimen (specimen) 08/31/2014 8:29 PM CURTAIN MENDER Historical Provider LAB BLOOD ORDERABLES Ashley l Result Performing Organization Address City/State/[facility] Co de Phone Number HISTORICAL RESULTS * (ABNORMAL) Serum comprehensive metabolic panel (08/31/2014 8:29 PM CURTAIN MENDER) BUN 16.0 6.0 - 23.0 mg/dl HISTORICAL RESULTS Sodium 137 134 - 143 mmol/L HISTORICAL RESULTS Potassium, sr 4.0 3.4 - 5.0 mmol/L HISTORICAL RESULTS Chloride 106 99 - 108 mmol/L HISTORICAL RESULTS CO2 31 23 - 32 mmol/L HISTORICAL RESULTS Glucose 130 70 - 199 mg/dl HISTORICAL RESULTS Comment: Note:The glucose is assumed non fasting Fastin-99 mg/dl Random: 70-199 mg/dl Either a fasting glucose > 126 mg/dL or a random glucose > 200 mg/dL plus symptoms is diagnostic of diabetes when confirmed on another day. Fasting values > 100 mg/dl but < 125 mg/dL are diagnostic of impaired fasting glucose. New reference ranges implemented 09/05/2013. Creatinine 1.26 0.60 - 1.30 mg/dl HISTORICAL RESULTS BUN/creat ratio 13 10 - 20 HIST ORICAL RESULTS A. gap 4(L) 7 - 14 mmol/L HISTORICAL RESULTS Protein, sr 6.5 6.4 - 8.0 g/dl HISTORICAL RESULTS Alb 3.5 3.3 - 4.5 g/dl HISTORICAL RESULTS Alb/glob ratio 1.2 1.1 - 1.8 HISTO RICAL RESULTS Calcium 8.8 8.6 - 9.8 mg/dl HISTORICAL RESULTS Bilirubin 0.5 0.0 - 1.1 mg/dl HISTORICAL RESULTS Alk phos 93 44 - 125 Units/L HISTORICAL RESULTS AST 16 5 - 40 Units/L HISTORICAL RESULTS ALT 22 15 - 70 Units/L HISTORICAL RESULTS Serum 08/31/2014 8:29 PM CURTAIN MENDER us Historical Provider LAB BLOOD ORDERABLES Ashley l Result HISTORICAL RESULTS * XR CHEST PORTABLE (08/31/2014 8:18 PM CURTAIN MENDER) Anatomical Region Laterality Modality Body N/A Radiographic Zhane ging 08/31/2014 8:18 PM CURTAIN MENDER Narrative 09/01/2014 11:08 AM CURTAIN MENDER XR Chest Portable ? [id number] ??Acc#: ??[id number] DATE OF EXAM: ??Nov ??2013 CLINICAL HISTORY: Chest pain. RESULT: A portable AP radiograph of the chest with no prior study demonstrates a normal sized heart. ??Lungs are clear. There is an old midshaft clavicle fracture on the left. The right hemidiaphragm is elevated one intercostal space above the right. IMPRESSION: NO ACUTE PULMONARY DISEASE. Interpreting Physician: ??JODIE TORRES M.D. ??Read on: ??Nov ??7 2013 ??6:33A Transcribed by: ??ylc ??On: Nov ??2013 11:07A Approved Electronically by: ??JODIE TORRES M.D. ??on: ??Aug ??2013 11:08A Ordering DR: Attending DR: KASSIDY STARR Procedure Note Provider, MD Clifford - 02/15/2017 XR Chest Portable [id number] Acc#: [id number] DATE OF EXAM: Aug 31 2014 CLINICAL HISTORY: Chest pain. RESULT: A portable AP radiograph of the chest with no prior study demonstrates anormal sized heart. Lungs are clear. There is an old midshaft claviclefracture on the left. The right hemidiaphragm is elevated one intercostalspace above the right. IMPRESSION: NO ACUTE PULMONARY DISEASE. Interpreting Physician: JODIE TORRES M.D. Read on: Sep 01 2014 6:33A Transcribed by: julio On: Sep 01 2014 11:07A Approved Electronically by: JODIE TORRES M.D. on: Sep 01 2014 11:08A Ordering DR: Attending DR: KASSIDY STARR us Historical Provider IMG XR PROCEDURES Final R esult * (ABNORMAL) Blood B-type natriuretic peptide (BNP) (08/31/2014 2:29 PM CURTAIN MENDER) BNP 135(H) -<100 pg/ml HISTORIC AL RESULTS Blood specimen (specimen) 08/31/2014 2:29 PM CURTAIN MENDER Narrative HISTORICAL RESULTS - 08/31/2014 3:22 PM CURTAIN MENDER BNP REFERENCE RANGE <100 pg/ml us Historical Provider LAB BLOOD ORDERABLES Ashley l Result HISTORICAL RESULTS * Serum troponin I (08/31/2014 2:29 PM CURTAIN MENDER) Troponin I <0.04 0.00 - 0.10 ng/ml HISTORICAL RESULTS Serum 08/31/2014 2:29 PM CURTAIN MENDER Narrative HISTORICAL RESULTS - 08/31/2014 3:05 PM CURTAIN MENDER NEGATIVE: ??0.00 - 0.10 NG/ML INDETERMINATE: ??0.11 - 0.50 NG/ML POSITIVE: ??GREATER THAN 0.50 NG/ML us Historical Provider LAB BLOOD ORDERABLES Ashley l Result HISTORICAL RESULTS * ELECTROCARDIOGRAPHY (ECG) (08/31/2014) Narrative 08/31/2014 Ordered by an unspecified provider. us Historical Provider ECG ORDERABLES Final Res ult documented in this encounter Visit Diagnoses Diagnosis Other chest pain Abnormal levels of other serum enzymes Edema Essential hypertension Unspecified essential hypertension Hypothyroidism Unspecified hypothyroidism Type 2 or unspecified type diabetes mellitus Pure hypertriglyceridemia Personal history of tobacco use, presenting hazards to health documented in this encounter Care Teams Field Recruiter Relationship Specialty Start Date End Date Kassidy Starr MD [address] [address] PCP - General 05/15/09 05/11/17 documented as of this encounter
--- OUTSIDE RECORDS SUMMARY | 2024-10-31 03:54 | XMS_ITS | Encounter Summary ---
Author Organization [facility] Healthcare Address [address] [place] [address] Care Team Providers Care Fuel System Maintenance Supervisor Name Role Phone Brittny Salazar MD Primary Care Provider [phone] Encounter Details Date Type Department Care Team (Late st Contact Info) Description 08/16/2012 8:16 AM CDT - 08/16/2012 11:59 PM CDT Hospital Encounter [facility] CLINCON[facility] Christopher Grant MD [address] [place] [address] [address] [place] [address] Constipation; Diverticulosis of colon; Esophageal reflux Social History Tobacco Use Types Packs/Day Years Used Date Smoking Tobacco: Never Assessed Comments Unknown Sex and Gender Information Value Date Recorded Sex Assigned at Not on file Legal Sex Female 1:04 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
--- OUTSIDE RECORDS SUMMARY | 2024-10-31 03:54 | XMS_ITS | Encounter Summary ---
Author Organization [facility] Facility Care Team Providers Care Grades 1 Through 6 Teacher Name Role Phone Brittny Salazar MD Primary Care Provider [phone] Encounter Details Date Type Department Care Team (Late st Contact Info) Description 08/28/2013 1:47 PM DEVIL TENDER - 08/28/2013 4:38 PM DEVIL TENDER Hospital Encounter [facility] CLINCONV Social History Tobacco Use Types Packs/Day Years Used Date Smoking Tobacco: Never Assessed Comments Unknown Sex and Gender Information Value Date Recorded Sex Assigned at Not on file Legal Sex Female 1:04 AM DEVIL TENDER Gender Identity Not on file Sexual Orientation Not on file documented as of this encounter Plan of Treatment Not on file documented as of this encounter Visit Diagnoses Not on filedocumented in this encounter Care Teams Grades 1 Through 6 Teacher Relationship Specialty Start Date End Date Brittny Salazar MD [address] [address] PCP - General 05/15/09 05/11/17 documented as of this encounter
--- OUTSIDE RECORDS SUMMARY | 2024-10-31 03:54 | XMS_ITS | Encounter Summary ---
Author Organization [facility] Facility Care Team Providers Care Wet Machine Cutter Name Role Phone Brittny Salazar MD Primary Care Provider [phone] Encounter Details Date Type Department Care Team (Late st Contact Info) Description 08/17/2013 6:43 AM CDT - 08/17/2013 4:00 PM CDT Hospital Encounter [facility] CLINCON Ranjan Lyman MD [address] [facility] [place] [address] Carpal tunnel syndrome; Arthropathy; Old myocardial infarction; Other and unspecified hyperlipidemia; Postsurgical hypothyroidism; Encounter for long-term (current) use of aspirin; Encounter for long-term (current) use of other medications Social History Tobacco Use Types Packs/Day Years Used Date Smoking Tobacco: Never Assessed Comments Unknown Sex and Gender Information Value Date Recorded Sex Assigned at Not on file Legal Sex 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 Surgeon: Ranjan Lyman M.D. Dictating: Santo Muhammad M.D. Service Dt: 08/17/2013 OPERATIVE REPORT SURGEON: Santo Muhammad M.D. ATTENDING: Ranjan Lyman M.D. FIRST MANAGEMENT DEVELOPER: KAYLA Padilla. PREOPERATIVE DIAGNOSIS (ES): Bilateral carpal tunnel syndrome. POSTOPERATIVE DIAGNOSIS (ES): Bilateral carpal tunnel syndrome. NAME OF OPERATION: Bilateral carpal tunnel releases. INDICATIONS FOR PROCEDURE: Ms. Alex is a patient who is well-known to Dr. Lyman. He had seen and evaluated her preoperatively in clinic, and failed reasonable conservative measures for managing her carpal tunnel symptoms; therefore, she was indicated for the aforementioned procedure. DESCRIPTION OF PROCEDURE: Ms. Alex was met in the preoperative holding area by both the anesthesia and surgical teams. The correct operative site was identified and marked with a surgical marking pen. She was then transferred back to the operating theater. After MAC anesthesia had been established, the patient was supine, with both arms out on hand tables. The bilateral hands were prepped and draped in the usual sterile fashion. A surgical time-out was taken to confirm correct patient and operative site. No antibiotics were used, given that this was an isolated soft tissue procedure. Next, after a final surgical time-out was taken, an Esmarch was used to exsanguinate the right upper extremity. The tourniquet was held at 280 mmHg. Total tourniquet time on the right side was 11 minutes. The incision just distal to the volar flexor wrist crease was carried sharply through the skin and subcutaneous tissues until the transverse fascia was encountered. This was incised sharply, and the carpal tunnel was entered distally, under good visualization at all times. The transverse ligament was transected distally until yellow fat on the superficial palmar arch was encountered. Once satisfied with the release distally, attention was turned to the release proximally. This was done under direct visualization with tenotomy scissors. Once we were satisfied with the release, the wound was copiously irrigated, then closed in a single layer with horizontal mattress-type stitches with 3-0 nylon. The patient's wounds were dressed with Adaptic 4x4 and a loosely placed Coban dressing. Again, the total tourniquet time on the right side was 11 minutes. We then turned our attention to the left side. An Esmarch tourniquet was used to exsanguinate the extremity. Total tourniquet time was 17 minutes. Using a similar volar palmar incision as the contralateral side, the skin and subcutaneous tissues were divided sharply down to the level of the transverse fascia, after the carpal tunnel had been entered sharply. The dissection was carried distally under direct visualization to the yellow fat of the superficial palmar arch. Satisfied with the release distally, we then turned our attention proximally. Again, under direct visualization, the transverse carpal ligament was released with tenotomy scissors. Satisfied with the release, we then copiously irrigated this wound as well, and then closed the wound with interrupted 3-0 nylons in horizontal mattress fashion, then covered the wound with a similar dressing to the contralateral side. Of note, the patient's bilateral carpal tunnel incisions were injected with 0.5% Marcaine for local pain control. Next, the patient was then awoken from her MAC anesthesia and taken back to the Post-Anesthesia Care Unit in good and stable condition. ESTIMATED BLOOD LOSS: Minimal. INTRAOPERATIVE FLUIDS: 800 mL. SPONGE/INSTRUMENT/NEEDLE COUNTS: Correct times two. COMPLICATIONS: None. PRESENCE STATEMENT: The attending was present throughout the entirety of the surgical procedure, from the surgical time-out through the start of the closure on the left side, after which he was immediately available. Santo Muhammad M.D. Electronically Signed By Ranjan Lyman M.D. 09/21/2013 04:19 P Ranjan Lyman M.D. [facility]/l #[id number] Editing MT: TD: 08/17/2013 17:13:00 cc: Yolanda Horta M.D. * Op Note - Provider, MD Clifford - 08/17/2013 12:00 AM CDT Patient: Jonnie Alex Reg No: [id number] [facility] #: [id number] Admit Dt.: 08/17/2013 : 1945 Pt Type: 200 Room No: OR Attending: Ranjan Lyman M.D. Surgeon: Ranjan Lyman M.D. Dictating: Ranjan Lyman M.D. Service Dt: 08/17/2013 OPERATIVE REPORT ADDENDUM TO PREVIOUS DICTATION: Please note that I, Dr. Ranjan Lyman, was present and scrubbed for the critical portions of this procedure, including identification and division of both transverse carpal ligaments, confirmation of complete release thereof. Please note I was immediately available for all noncritical portions of the procedure. Electronically Signed By Ranjan Lyman M.D. 09/21/2013 04:20 P Yolanda Horta/vanessa #[id number] Editing MT: TD: 08/31/2013 21:44:00 cc: Orthopedic Billing Ranjan Lyman M.D. documented in this encounter Plan of Treatment Not on file documented as of this encounter Procedures Procedure Name Priority Date/Time Associated Diagnosis Comments BLOOD GLUCOSE, POC Routine 08/17/2013 9: 41 AM CDT BLOOD GLUCOSE, POC Routine 08/17/2013 7: 10 AM CDT DISCHARGE LABORATORY CUMULATIVE REPORT Routine 08/17/2013 12:00 AM CDT documented in this encounter Results * Blood glucose, POC (08/17/2013 9:41 AM CDT) Glucose, POC, bld 104 70 - 199 mg/dl HISTORICAL RESULTS Blood specimen (specimen) 08/17/2013 9:41 AM CDT us Ranjan Lyman MD LAB BLOOD ORDERABLES Final Re sult HISTORICAL RESULTS * Blood glucose, POC (08/17/2013 7:10 AM CDT) Glucose, POC, bld 115 70 - 199 mg/dl HISTORICAL RESULTS Blood specimen (specimen) 08/17/2013 7:10 AM CDT us Ranjan Lyman MD LAB BLOOD ORDERABLES Final Re sult HISTORICAL RESULTS * Discharge Laboratory Cumulative Report (08/17/2013 12:00 AM CDT) 08/17/2013 Narrative HISTORICAL RESULTS - 08/17/2013 11:22 AM CDT ?[facility] ?Department of Laboratories ? [address] [facility] [place] ? [place] [address] Patient Name: ??JONNIE ALEX Med Rec Number: [id number] Fin Number: ?[id number] Date: ?1945 Sex/Age: ? Female 67 years Admit Date: ?08/17/2013 Discharge Date: 08/17/2013 Doctor: ?Ranjan Lyman I Facility: ?[facility] Location: ?OR Chart Printed: 08/17/2013 11:22 ?? * Abnormal ?? C Critical ?? f Footnote ?? ^ Corrected ?? L Low ?? H High ? i Interp Data ?? @ Reference Lab ? Chart Type:Periodic ?POINT OF CARE TESTS ? Chemistry ?Test: Glucose POC ? Reference: [[id number]] ? Units: mg/dL 08/17/2013 ?? 09:41:00 ?? 104 08/17/2013 ?? 07:10:00 ?? 115 us Historical Provider LAB BLOOD ORDERABLES Ashley l Result HISTORICAL RESULTS documented in this encounter Visit Diagnoses Diagnosis Carpal tunnel syndrome Arthropathy Unspecified arthropathy, site unspecified Old myocardial infarction Other and unspecified hyperlipidemia Postsurgical hypothyroidism Encounter for long-term (current) use of aspirin Encounter for long-term (current) use of other medications documented in this encounter Care Teams Wet Machine Cutter Relationship Specialty Start Date End Date Brittny Salazar MD [address] [place] [address] PCP - General 05/15/09 05/11/17 documented as of this encounter
--- OUTSIDE RECORDS SUMMARY | 2024-10-31 03:54 | XMS_ITS | Encounter Summary ---
Author Organization [facility] Care Team Providers Care Supervisor Ride Assembly Name Role Phone Brittny Salazar MD Primary Care Provider +1 -[phone] Encounter Details Date Type Department Care Team (Late st Contact Info) Description 08/09/2013 12:37 PM CDT - 08/09/2013 4:00 PM CDT Hospital Encounter [facility] CLINCONV Ranjan Lyman MD [address] [place] [address] Other specified pre-operative examination; Carpal tunnel syndrome; Essential hypertension; Type 2 or unspecified type diabetes mellitus; Anemia; Morbid obesity (HCC); Body mass index (BMI) of 40.0-44.9 in adult (HCC) Social History Tobacco Use Types Packs/Day Years Used Date Smoking Tobacco: Never Assessed Comments Unknown Sex and Gender Information Value Date Recorded Sex Assigned at Not on file 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 Gender Identity Not on file Sexual Orientation Not on file documented as of this encounter Plan of Treatment Not on file documented as of this encounter Procedures Procedure Name Priority Date/Time Associated Diagnosis Comments PLASMA BASIC METABOLIC PANEL Routine 08/09/2013 3:05 PM CDT BLOOD HEMOGLOBIN A1C Routine 08/09/2013 3:05 PM CDT BLOOD CELL COUNT Routine 08/09/2013 3:05 PM CDT DISCHARGE LABORATORY CUMULATIVE REPORT Routine 08/09/2013 12:00 AM CDT documented in this encounter Results * Blood hemoglobin A1C (08/09/2013 3:05 PM CDT) Pathologist [facility] Hgb A1C 5.6 4.0 - 6.0 % HISTORICAL RESULTS Estimated average glucose 114 mg/dl HISTORICAL RESULTS Comment: The ADA recommends reporting an estimated Average Glucose (eAG) with all Hemoglobin A1c results using the equation derived from a study of 507 normal and diabetic adults. ??Minority populations were underrepresented and children were not included. ??(Diabetes Care 31:8670-5926, 2008). ??The eAG is not equivalent to a fasting glucose. Blood specimen (specimen) 08/09/2013 3:05 PM CDT Susan Mayo RAG PRODUCTION WORKER LAB BLOOD ORDERABLES Final Result Performing Organization Address [facility] de Phone Number HISTORICAL RESULTS * Plasma basic metabolic panel (08/09/2013 3:05 PM CDT) [facility] Sodium 142 135 - 145 mmol/L HISTORICAL RESULTS K, pl 4.3 3.3 - 4.9 mmol/L HISTORICAL RESULTS Chloride 103 97 - 110 mmol/L HISTORICAL RESULTS CO2 30 22 - 32 mmol/L HISTORICAL RESULTS A. gap 9 0 - 16 mmol/L HISTORICAL RESULTS Glucose 137 70 - 199 mg/dl HISTORICAL RESULTS BUN 19 8 - 25 mg/dl HISTORICAL RESULTS Creatinine 1.08 0.60 - 1.10 mg/dl HISTORICAL RESULTS Calcium 9.1 8.6 - 10.3 mg/dl HISTORICAL RESULTS Plasma 08/09/2013 3:05 PM CDT us Susan Mayo RAG PRODUCTION WORKER LAB BLOOD ORDERABLES Final Result Performing Organization Address [facility] Co de Phone Number HISTORICAL RESULTS * (ABNORMAL) Blood cell count [CBC] express (08/09/2013 3:05 PM CDT) [facility] WBC 7.0 3.8 - 9.8 K/cumm HISTORICAL RESULTS RBC 5.70(H) 3.90 - 5.00 M/cumm HISTORICAL RESULTS Hgb 10.9(L) 12.1 - 15.1 g/dl HISTORICAL RESULTS Comment:{Discrepancy noted} Hct 36.4 36.1 - 44.3 % HISTORICAL RESULTS MCV 63.8(L) 80.0 - 97.6 fl HISTORICAL RESULTS MCH 19.2(L) 26.7 - 33.7 pg HISTORICAL RESULTS MCHC 30.1(L) 32.7 - 35.5 g/dl HISTORICAL RESULTS Rdw 15.6(H) 11.8 - 14.6 % HISTORICAL RESULTS Platelets 165 140 - 440 K/cumm HISTORICAL RESULTS MPV 8.1 6.8 - 10.4 fl HISTORICAL RESULTS Blood specimen (specimen) 08/09/2013 3:05 PM CDT Susan Mayo RAG PRODUCTION WORKER LAB BLOOD ORDERABLES Final Result Performing Organization Address City/State/[facility] Co de Phone Number HISTORICAL RESULTS * Discharge Laboratory Cumulative Report (08/09/2013 12:00 AM CDT) 08/09/2013 Narrative HISTORICAL RESULTS - 08/09/2013 7:22 PM CDT ?[facility] ?Department of Laboratories ? [address] [facility] [address] ? [place] [address] Patient Name: ??JONNIE ALEX [facility] Rec Number: [id number] Fin Number: ?[id number] Date: ?1945 Sex/Age: ? Female 67 years Admit Date: ?08/09/2013 Discharge Date: 08/09/2013 Doctor: ?Ranjan Lyman I Facility: ?[facility] Location: ?CPAP Chart Printed: 08/09/2013 19:22 ?? * Abnormal ?? C Critical ?? f Footnote ?? ^ Corrected ?? L Low ?? H High ? i Interp Data ?? @ Reference Lab ? Chart Type:Periodic ? SELECTED ELECTROLYTES ?Test: Sodium ? Plasma Potassium ??Chloride ? Reference: [135-145] ??[3.3-4.9] ? [97-110] ? Units: mmol/L ? mmol/L ?mmol/L 08/09/2013 ?? 15:05:00 ?? 142 ?4.3 ? 103 ?Test: Total CO2 ??Anion Gap ? Reference: [22-32] ?[0-16] ? Units: mmol/L ? mmol/L 08/09/2013 ?? 15:05:00 ?? 30 ? 9 ? STANDARD BLOOD CHEMISTRY ?Test: BUN ? Creatinine ?? Glucose ?? Total Calcium ? Reference: [8-25] ??[0.60-1.10] ??[70-199] ??[8.6-10.3] ? Units: mg/dL ?? mg/dL ?mg/dL ? mg/dL 08/09/2013 ?? 15:05:00 ?? 19 ?1.08 ? 137 ? 9.1 ?GLYCATED HEMOGLOBIN TESTING ?Test: Hemoglobin A1C ??Est Average Glucose ? Reference: [4.0-6.0] ? Units: % ? mg/dL 08/09/2013 ?? 15:05:00 ?? 5.6 ? 114 ??f 08/09/2013 15:05:00 ??Est Average Glucose: The ADA recommends reporting an estimated Average Glucose (eAG) with all Hemoglobin A1c results using the equation derived from a study of 507 normal and diabetic adults. ??Minority populations were underrepresented and ?GLYCATED HEMOGLOBIN TESTING children were not included. ??(Diabetes Care 31:8256-1681, 2008). ??The eAG is not equivalent to a fasting glucose. ? COMPLETE BLOOD COUNT ?Test: WBC ?RBC ?Hgb ? Reference: [3.8-9.8] ??[3.90-5.00] ??[12.1-15.1] ? Units: K/cumm ? M/cumm ? g/dL 08/09/2013 ?? 15:05:00 ?? 7.0 ?5.70 ??H ?10.9 ??Lf 08/09/2013 15:05:00 ??Hgb: Discrepancy noted ?Test: Hct ?Platelet Ct ??MCV ? Reference: [36.1-44.3] ??[140-440] ?[80.0-97.6] ? Units: % ?K/cumm ? fL 08/09/2013 ?? 15:05:00 ?? 36.4 ? 165 ?63.8 ??L ?Test: MCH ?MCHC ? RDW ? Reference: [26.7-33.7] ??[32.7-35.5] ??[11.8-14.6] ? Units: pg ? g/dL ? % 08/09/2013 ?? 15:05:00 ?? 19.2 ??L ?30.1 ??L ?15.6 ??H ?Test: MPV ? Reference: [6.8-10.4] ? Units: fL 08/09/2013 ?? 15:05:00 ?? 8.1 us Historical Provider MD LAB BLOOD ORDERABLES Ashley l Result HISTORICAL RESULTS documented in this encounter Visit Diagnoses Diagnosis Other specified pre-operative examination Carpal tunnel syndrome Essential hypertension Unspecified essential hypertension Type 2 or unspecified type diabetes mellitus Anemia Unspecified anemia Morbid obesity (HCC) Morbid obesity Body mass index (BMI) of 40.0-44.9 in adult (HCC) documented in this encounter Care Teams Supervisor Ride Assembly Relationship Specialty Start Date End Date Brittny Salazar MD [address] [address] PCP - General 05/15/09 05/11/17 documented as of this encounter
--- OUTSIDE RECORDS SUMMARY | 2024-10-31 03:54 | XMS_ITS | Encounter Summary ---
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 Admit Date: 07/27/2012 Dict.: Christopher Grant M.D. Disch. Date: NAME OF PROCEDURE: Colonoscopy. DATE: 07/27/12. HISTORY: 66-year-old female presents for screening colonoscopy. PHYSICAL EXAMINATION: Morbidly obese female. Lungs are clear. Cardiovascular exam is unremarkable. PROCEDURE: Colonoscopy was attempted with the Povio video endoscope. She was premedicated by anesthesia. On digital exam, she has grade 2 to 3 hemorrhoids. We inserted the endoscope and advanced it. We did not that she has sigmoid diverticula. We got the scope to the hepatic flexure, but because of her body habitus, we were not able to see [...] Christopher Grant MD On 07/29/2012 08:16:52 AM documented in this encounter Plan of Treatment Not on file documented as of this encounter Procedures Procedure Name Priority Date/Time Associated Diagnosis Comments COLONOSCOPY 07/27/2012 12:00 AM CDT documented in this encounter Results * COLONOSCOPY (07/27/2012 12:00 AM CDT) Anatomical Region Laterality Modality Other Narrative 07/27/2012 12:00 AM CDT Ordered by an unspecified provider. Procedure Note Provider, MD Clifford - 07/27/2012 12:00 AM CDT PROCEDURE REPORT Patient: JONNIE ALEX Account: [id number] Room No: : 1945 Patient Type: SDS Attend.: Christopher Grant M.D. Admit Date: 07/27/2012 Dict.: Christopher Grant M.D. Disch. Date: NAME OF PROCEDURE: Colonoscopy. DATE: 07/27/12. HISTORY: 66-year-old female presents for screening colonoscopy. PHYSICAL EXAMINATION: Morbidly obese female. Lungs are clear.Cardiovascular exam is unremarkable. PROCEDURE: Colonoscopy was attempted with the Povio video endoscope.She was premedicated by anesthesia. On [...] colon. PLAN: Barium enema. Christopher Grant M.D. / TD: 07/27/2012 12:04 CC: Dr. 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
--- OUTSIDE RECORDS SUMMARY | 2024-10-31 03:57 | XMS_ITS | Encounter Summary ---
Author Organization [facility] Address [facility]. [place], [place] [address] [place] [address] Care Team Providers Care Cloth Colors Examiner Name Role Phone Sabrina Ruffin MD Primary Care Provider +1- [phone] Encounter Details Date Type Department Care Team (Latest Contact Info) Description 03/02/2024 Travel Social History Tobacco Use Types Packs/Day Years Used Date Smoking Tobacco: Never Assessed Comments Unknown Sex and Gender Information Value Date Recorded Sex Assigned at Not on file Legal Sex Female 1:25 PM CDT Gender Identity Not on file Sexual Orientation Not on file documented as of this encounter Plan of Treatment Not on file documented as of this encounter Visit Diagnoses Not on filedocumented in this encounter Care Teams Cloth Colors Examiner Relationship Specialty Start Date End Date Sabrina Ruffin MD [address] [facility] [address] [place] [address] PCP - General FAMILY PRACTICE 03/02/24 documented as of this encounter
--- OUTSIDE RECORDS SUMMARY | 2024-10-31 03:57 | XMS_ITS | Encounter Summary ---
Author Organization [facility] Address [facility]. [place], [place] [address] [place] [address] Care Team Providers Care Locket Maker Name Role Phone Sabrina Ruffin MD Primary Care Provider +1- [phone] Encounter Details Date Type Department Care Team (Latest Contact Info) Description 03/30/2024 Travel Social History Tobacco Use Types Packs/Day [...] on filedocumented in this encounter Care Teams Locket Maker Relationship Specialty Start Date End Date Sabrina Ruffin MD [address] [facility] [address] [place] [address] PCP - General FAMILY PRACTICE 03/02/24 documented as of this encounter
--- OUTSIDE RECORDS SUMMARY | 2024-10-31 03:57 | XMS_ITS | Encounter Summary ---
Author Organization [facility] Address [facility]. [place], [place] [address] [place] [address] Care Team Providers Care Global Risk Management Director Name Role Phone Sabrina Ruffin MD Primary Care Provider +1- [phone] Reason for Referral * Imaging (Routine) - Closed Specialty Diagnoses / Procedures Referred By Contac t Referred To Contact RADIOLOGY Diagnoses T10 vertebral fracture (CMS/HCC HHS/HCC) Procedures CT THOR SPINE WO Randy Patel MD [address] [facility] [address] [place] [address] Phone: tel: fax: Referral ID Status Reason Start Date Expiration Date Visits Re quested Visits Authorized [id number] Closed 04/01/2024 04/01/2025 1 1 Reason for Visit * Imaging (Routine) - Closed Specialty Diagnoses / Procedures Referred By Contac t Referred To Contact RADIOLOGY Diagnoses T10 vertebral fracture (CMS/HCC HHS/HCC) Procedures CT THOR SPINE WO Randy Patel MD [address] [facility] [address] [place] [address] Phone: tel: fax: Referral ID Status Reason Start Date Expiration Date Visits Re quested Visits Authorized [id number] Closed 04/01/2024 04/01/2025 1 1 Encounter Details Date Type Department Care Team (Latest Contact Info) Description 04/15/2024 10:23 AM CDT - 04/15/2024 11:59 PM CDT Hospital Encounter [facility] CT [address] [place] [address] Randy Wesley MD [address] [facility] [address] [place] [address] Discharge Disposition: Home or Self Care (Routine Discharge) Social History Tobacco Use Types Packs/Day Years [...] Name Priority Date/Time Associated Diagnosis Comments CT THOR SPINE WO CON Routine 04/15/2024 10:34 AM CDT T10 vertebral fracture (CMS/HCC HHS/HCC) documented in this encounter Results * CT THOR SPINE WO CON (04/15/2024 10:34 AM CDT) Anatomical Region Laterality Modality Spine Computed Tomogra phy 04/20/2024 9:28 AM CDT Impressions 04/20/2024 9:43 AM CDT IMPRESSION: 1. ??Acute to subacute vertical oblique fracture through the posterior half of the T10 extending from the superior endplates of the posterior inferior corner of T10. ??No retropulsed fragments. 2. ??Severe disc space narrowing with bony fusion of the T10/T11 disc space. 3. ??Chronic compression fracture of T12 with 30% loss of height and prior vertebroplasty. 4. ??Osteopenia with moderate to severe multilevel disc space narrowing and endplate degenerative change 5. ??Aortic and coronary artery calcification. Referred By: RANDY WESLEY Interpreted By: Christopher Lake MD, 04/20/2024 9:28 AM Narrative 04/20/2024 9:43 AM CDT EXAMINATION:CT of the thoracic spine without contrast 04/15/2024 INDICATION:Follow-up T10 and T12 fractures, mid back pain TECHNIQUE: Axial CT images of the thoracic spine were acquired without intravenous contrast. ??Sagittal coronal reformats were constructed.Radiation dose reduction techniques were used. COMPARISON: Thoracic radiographs 03/30/2024 FINDINGS:Mineralization is diffusely decreased. ??The last rib-bearing vertebral bodies presumed represent T12. There is a chronic compression fracture of T12 depression of superior endplate and 30% loss of height. ??There is been prior vertebroplasty at the T12 level. There is severe disc space narrowing and bony disc space fusion at T10/T11. There is nondisplaced oblique fracture within the posterior half of the T10 vertebral body extending from the superior endplates of the posterior inferior corner of T10. ??No retropulsed fragments. There is a moderate to severe multilevel disc space narrowing and endplate degenerative change. ??No significant bony central canal or neural foraminal stenosis. ??No focal lytic or blastic lesion. ??There is disc space narrowing with vacuum disc phenomena at T12/L1 with adjacent vertebral body sclerosis. Calcification is noted within the coronary arteries and thoracic aorta. ??No paraspinal mass or fluid collection. Procedure Note Christopher Lake MD - 04/20/2024 EXAMINATION:CT of the thoracic spine without contrast 04/15/2024 INDICATION:Follow-up T10 and T12 fractures, mid back pain TECHNIQUE: Axial CT images of the thoracic spine were acquired withoutintravenous contrast. Sagittal coronal reformats wereconstructed.Radiation dose reduction techniques were used. COMPARISON: Thoracic radiographs 03/30/2024 FINDINGS:Mineralization is diffusely decreased. The last rib-bearingvertebral bodies presumed represent T12. There is a chronic compression fracture of T12 depression of superiorendplate and 30% loss of height. There is been prior vertebroplasty atthe T12 level. There is severe disc space narrowing and bony disc space fusion atT10/T11. There is nondisplaced oblique fracture within the posterior half of theT10 vertebral body extending from the superior endplates of the posteriorinferior corner of T10. No retropulsed fragments. There is a moderate to severe multilevel disc space narrowing and endplatedegenerative change. No significant bony central canal or neuralforaminal stenosis. No focal lytic or blastic lesion. There is discspace narrowing with vacuum disc phenomena at T12/L1 with adjacentvertebral body sclerosis. Calcification is noted within the coronary arteries and thoracic aorta.No paraspinal mass or fluid collection. IMPRESSION: 1. Acute to subacute vertical oblique fracture through the posterior halfof the T10 extending from the superior endplates of the posterior inferiorcorner of T10. No retropulsed fragments. 2. Severe disc space narrowing with bony fusion of the T10/T11 discspace. 3. Chronic compression fracture of T12 with 30% loss of height and priorvertebroplasty. 4. Osteopenia with moderate to severe multilevel disc space narrowing andendplate degenerative change 5. Aortic and coronary artery calcification. Referred By: RANDY WESLEY Interpreted By: Christopher Lake MD, 04/20/2024 9:28 AM us Randy Wesley MD CT Final R esult documented in this encounter Visit Diagnoses Diagnosis T10 vertebral fracture (CMS/HCC HHS/HCC) Closed fracture of dorsal (thoracic) vertebra without mention of spinal cord injury documented in this encounter Care Teams Global Risk Management Director Relationship Specialty Start Date End Date Sabrina Ruffin MD [address] [facility] [address] [place] [address] PCP - General FAMILY PRACTICE 03/02/24 documented as of this encounter
--- OUTSIDE RECORDS SUMMARY | 2024-10-31 03:57 | XMS_ITS | Encounter Summary ---
Author Organization [facility] Address [facility]. [place], [place] [address] [place] [address] Care Team Providers Care Office Clerk Routine Name Role Phone Sabrina Ruffin MD Primary Care Provider +1- [phone] Encounter Details Date Type Department Care Team (Latest Contact Info) Description 04/15/2024 Travel Social History Tobacco Use Types Packs/Day [...] filedocumented in this encounter Care Teams Office Clerk Routine Relationship Specialty Start Date End Date Sabrina Ruffin MD [address] [facility] [address] [place] [address] PCP - General FAMILY PRACTICE 03/02/24 documented as of this encounter
--- OUTSIDE RECORDS SUMMARY | 2024-10-31 03:57 | XMS_ITS | Clinical Summary ---
Author Organization [facility] Address [address] [place] [address]. [place], [place] [address] [place] [address] Care Team Providers Care Scoop Operator Name Role Phone Sabrina Ruffin MD Primary Care Provider +1- [phone] Social History Tobacco Use Types Packs/Day Years Used Date Smoking Tobacco: Never Assessed Comments Unknown Sex and Gender Information Value Date Recorded Sex Assigned at Not on file Legal Sex Female 1:25 PM CDT Gender Identity Not on file Sexual Orientation Not on file Plan of Treatment Health Maintenance Due Date Last Done Comments Hepatitis C 1963 Annual Medicare Wellness Visit 2009 Dexa Scan (General) 2009 Zoster Vaccines (2 of 3) 10/04/2014 08/09/2014 RSV Immunization or 60+ Years (1 - 1-dose 75+ series) 2019 DTaP, Tdap and Td Vaccines (2 - Td or Tdap) 12/16/2020 12/16/2010 COVID-19 Vaccine ( season) 2024 08/19/2022, 03/03/2022, 08/17/2021, Additional history exists Influenza Adult (#1) 2024 07/26/2019, 08/16/2018, 08/17/2017, Additional history exists Pneumococcal Vaccine: 65+ Years Completed 03/14/2022, 08/17/2017, 06/26/2010 Meningococcal Vaccine Aged Out No qian yara eligible based on patient's age to complete this topic RSV Immunizations Under 20 Months Aged Out No longer eligible based on patient's age to complete this topic Insurance MEDICARE [facility] Care Teams Scoop Operator Relationship Specialty Start Date End Date Sabrina Ruffin MD [address] [facility] [address] [place] [address] PCP - General FAMILY PRACTICE 03/02/24
--- OUTSIDE RECORDS SUMMARY | 2024-10-31 03:57 | XMS_ITS | Encounter Summary ---
Author Organization [facility] Address [facility] [place] [address] [place] [address] Care Team Providers Care Pattern And Chain Maker Name Role Phone Sabrina Ruffin MD Primary Care Provider +1- [phone] Encounter Details Date Type Department Care Team (Latest Contact Info) Description 03/30/2024 1:30 PM CDT - 03/30/2024 11:59 PM CDT Hospital Encounter [facility] Diagnostic Imaging [place], [place] [id number] Randy Wesley MD [address] [facility] [address] [place], [place] [id number] Discharge Disposition: Home or Self Care (Routine [...] Name Priority Date/Time Associated Diagnosis Comments XR THOR SPINE 2V Routine 03/30/2024 1:52 PM CDT T10 vertebral fracture ([facility]/HCC [facility]) XR LUMB SPINE AP+LAT ONLY Routine 03/30/2024 1:52 PM CDT Back pain documented in this encounter Results * XR LUMB SPINE AP+LAT ONLY (03/30/2024 1:52 PM CDT) Anatomical Region Laterality Modality Spine Radiographic Zhane ging 03/30/2024 6:47 PM CDT Impressions 03/30/2024 6:49 PM CDT =====IMPRESSION:===== ?? Osteopenia with scoliosis and prominent degenerative changes in the spine. No definite acute bony abnormalities in the lumbar spine. As before vertebroplasty at the level of T12. Ordered By: RANDY WESLEY Interpreted By: Karan Guadarrama MD, 03/30/2024 6:47 PM Narrative 03/30/2024 6:49 PM CDT Examination: Lumbar Spine 2 views Exam date/time: 03/30/2024 1:38 PM Reason For Exam: ??back pain ? Comparison: Previous studies were done January 2024. Views: AP, ??lateral and cone-down detailed lateral radiographs of the lumbar spine were obtained Findings: There is osteopenia. There is scoliosis. Advanced degenerative changes throughout the lumbar spine especially starting at L3-4 levels with endplate spurs and degenerative sclerosis at the endplates. There is marked narrowing of the interspace L5/S1. There is also prominent facet disease. Vertebroplasty changes at the level of T12. Postsurgical clips in the abdomen. Calcifications in the pelvis. If the patient's symptoms still remain unexplained recommend cross-sectional imaging with MRI or CT scan Procedure Note Karan Guadarrama MD - 03/30/2024 Examination: Lumbar Spine 2 views Exam date/time: 03/30/2024 1:38 PM Reason For Exam: back pain Comparison: Previous studies were done January 2024. Views: AP, lateral and cone-down detailed lateral radiographs of thelumbar spine were obtained Findings: There is osteopenia. There is scoliosis. Advanced degenerativechanges throughout the lumbar spine especially starting at L3-4 levelswith endplate spurs and degenerative sclerosis at the endplates. There ismarked narrowing of the interspace L5/S1. There is also prominent facetdisease. Vertebroplasty changes at the level of T12. Postsurgical clips in the abdomen. Calcifications in the pelvis. If the patient's symptoms still remain unexplained recommendcross-sectional imaging with MRI or CT scan =====IMPRESSION:===== Osteopenia with scoliosis and prominent degenerative changes in thespine. No definite acute bony abnormalities in the lumbar spine. As beforevertebroplasty at the level of T12. Ordered By: RANDY WESLEY Interpreted By: Karan Guadarrama MD, 03/30/2024 6:47 PM us Randy Wesley MD GENERAL IMAGING Final R esult * XR THOR SPINE 2V (03/30/2024 1:52 PM CDT) Anatomical Region Laterality Modality Spine Radiographic Zhane ging 03/31/2024 9:20 AM CDT Impressions 03/31/2024 9:22 AM CDT IMPRESSION: 1. ??No acute abnormality. 2. ??Diffuse spondylosis with degenerative type dextroconvex curvature mid thoracic spine and levoconvex curvature throughout the lumbar spine. 3. ??Stable T12 vertebral body compression deformity. Referred By: ?? Interpreted By: Alfredito Coronado MD, 03/31/2024 9:20 AM Narrative 03/31/2024 9:22 AM CDT Examination: XR THOR SPINE 2V Exam time: 03/30/2024 1:38 PM Clinical history: T10 fracture. ??Follow-up. Comparison: 03/02/2024 thoracic spine. ??01/25/2024 throughout the lumbar spine. Technique: AP, lateral, and swimmer's views Findings: There is diffuse spondylosis throughout the mid and lower thoracic spine and the visualized lumbar spine. ??Minimal degenerative type dextroconvex curvature mid thoracic spine and levoconvex curvature throughout the lumbar junction. There are prominent bridging anterior lateral vertebral body endplate spurring changes within the mid thoracic spine. There is no definitive evidence of a T10 vertebral body compression fracture, given the history. ??However, there is a stable mild anterior wedge configuration with increased density within the T12 vertebral body consistent with a stable vertebral body compression deformity. ??No evidence of retropulsion of bone into the spinal canal. No evidence of abnormal paraspinal soft tissue densities. ??Shunt tubing projects over medial right hemithorax. ??Multiple surgical clips right upper quadrant. Procedure Note Alfredito Coronado MD - 03/31/2024 Examination: XR THOR SPINE 2V Exam time: 03/30/2024 1:38 PM Clinical history: T10 fracture. Follow-up. Comparison: 03/02/2024 thoracic spine. 01/25/2024 throughout the lumbarspine. Technique: AP, lateral, and swimmer's views Findings: There is diffuse spondylosis throughout the mid and lowerthoracic spine and the visualized lumbar spine. Minimal degenerative typedextroconvex curvature mid thoracic spine and levoconvex curvaturethroughout the lumbar junction. There are prominent bridging anterior lateral vertebral body endplatespurring changes within the mid thoracic spine. There is no definitive evidence of a T10 vertebral body compressionfracture, given the history. However, there is a stable mild anteriorwedge configuration with increased density within the T12 vertebral bodyconsistent with a stable vertebral body compression deformity. Noevidence of retropulsion of bone into the spinal canal. No evidence of abnormal paraspinal soft tissue densities. Shunt tubingprojects over medial right hemithorax. Multiple surgical clips rightupper quadrant. IMPRESSION: 1. No acute abnormality. 2. Diffuse spondylosis with degenerative type dextroconvex curvature midthoracic spine and levoconvex curvature throughout the lumbar spine. 3. Stable T12 vertebral body compression deformity. Referred By: Interpreted By: Alfredito Coronado MD, 03/31/2024 9:20 AM us Randy Wesley MD GENERAL IMAGING Final R esult documented in this encounter Visit Diagnoses Diagnosis T10 vertebral fracture (CMS/HCC HHS/HCC) Closed fracture of dorsal (thoracic) vertebra without mention of spinal cord injury Back pain Backache, unspecified documented in this encounter Care Teams Pattern And Chain Maker Relationship Specialty Start Date End Date Sabrina Ruffin MD [address] [facility] [address] [place] [address] PCP - General FAMILY PRACTICE 03/02/24 documented as of this encounter
--- OUTSIDE RECORDS SUMMARY | 2024-10-31 03:58 | XMS_ITS | Encounter Summary ---
Author Organization [facility] Address [address] [place] [address]. [place] [address] Care Team Providers Care Armed Security Guard Name Role Phone None, Provider Primary Care Provider Unavaila ble Encounter Details Date Type Department Care Team (Latest Contact Info) Description 01/25/2024 Travel Social History Tobacco Use Types Packs/Day [...] on filedocumented in this encounter Care Teams Armed Security Guard Relationship Specialty Start Date End Date None, Provider, PCP - General UNKNOWN PHYSICIAN SPECIALTY 01/25/24 documented as of this encounter
--- OUTSIDE RECORDS SUMMARY | 2024-10-31 03:58 | XMS_ITS | Encounter Summary ---
Author Organization [facility] Address [address] [place] [address]. [place] [address] [place] [address] Care Team Providers Care Market Sales Manager Name Role Phone None, Provider Primary Care Provider Unavaila ble Encounter Details Date Type Department Care Team (Latest Contact Info) Description 01/25/2024 2:15 PM CDT - 01/25/2024 11:59 PM CDT Hospital Encounter [facility] [place] [address] Randy Fan MD 3 [facility] [address] [place] [address] Discharge Disposition: Home or Self Care (Routine [...] Name Priority Date/Time Associated Diagnosis Comments XR THORACOLUMBAR SPINE 2V Routine 01/25/2024 3:00 PM CDT Thoracic vertebral fracture ([facility]) documented in this encounter Results * XR THORACOLUMBAR SPINE 2V (01/25/2024 3:00 PM CDT) Anatomical Region Laterality Modality Spine Radiographic Zhane ging 01/29/2024 5:25 PM CDT Impressions 01/29/2024 5:33 PM CDT =====IMPRESSION:===== 1. Chronic compression fracture and vertebroplasty at T12. 2. No definite evidence of acute fracture, although bone detail is obscured on this exam. If there is clinical concern for occult acute fracture, consider CT or MRI to better characterize. 3. Chronic severe degenerative changes and mild scoliosis. 4. Diffuse osteopenia. Ordered By: RANDY FAN Interpreted By: Chase Krause MD, 01/29/2024 5:25 PM Narrative 01/29/2024 5:33 PM CDT Exam date/time: 01/25/2024 2:50 PM Examination: ??Thoracolumbar spine, 2 views ?? Reason For Exam: ??fracture of thoracic spine ? Comparison: None. Findings: ??AP and lateral projections of the thoracic spine and lumbar spine, 4 total images. The lumbosacral junction is incompletely visualized. Mild thoracolumbar scoliosis with rightward curvature in the midthoracic spine and leftward curvature in the thoracolumbar junction. Otherwise normal thoracic kyphosis. Chronic mild compression fracture and vertebroplasty of T12. Bone detail is obscured on this exam due to the degree of osteopenia and radiographic technique. Grossly, no acute fracture is demonstrated on this exam. Severe thoracic spondylosis with diffuse idiopathic skeletal hyperostosis. Prominent bridging anterolateral spurs across consecutive levels. Multiple fused levels. In the visualized lumbar spine, there are severe degenerative changes with severe disc space narrowing at multiple levels. Associated degenerative endplate irregularity, sclerosis and osteophytes. Moderate facet joint hypertrophy. Mild lumbar scoliosis with rightward apex at the L2-3 level. Multiple overlying artifacts are noted. Cholecystectomy clips. Ventriculoperitoneal shunt catheter overlies the right chest and abdomen. Procedure Note Chase Krause MD - 01/29/2024 Exam date/time: 01/25/2024 2:50 PM Examination: Thoracolumbar spine, 2 views Reason For Exam: fracture of thoracic spine Comparison: None. Findings: AP and lateral projections of the thoracic spine and lumbarspine, 4 total images. The lumbosacral junction is incompletelyvisualized. Mild thoracolumbar scoliosis with rightward curvature in themidthoracic spine and leftward curvature in the thoracolumbar junction.Otherwise normal thoracic kyphosis. Chronic mild compression fracture andvertebroplasty of T12. Bone detail is obscured on this exam due to thedegree of osteopenia and radiographic technique. Grossly, no acutefracture is demonstrated on this exam. Severe thoracic spondylosis withdiffuse idiopathic skeletal hyperostosis. Prominent bridging anterolateralspurs across consecutive levels. Multiple fused levels. In the visualized lumbar spine, there are severe degenerative changes withsevere disc space narrowing at multiple levels. Associated degenerativeendplate irregularity, sclerosis and osteophytes. Moderate facet jointhypertrophy. Mild lumbar scoliosis with rightward apex at the L2-3 level.Multiple overlying artifacts are noted. Cholecystectomy clips.Ventriculoperitoneal shunt catheter overlies the right chest and abdomen. =====IMPRESSION:===== 1. Chronic compression fracture and vertebroplasty at T12. 2. No definite evidence of acute fracture, although bone detail isobscured on this exam. If there is clinical concern for occult acutefracture, consider CT or MRI to better characterize. 3. Chronic severe degenerative changes and mild scoliosis. 4. Diffuse osteopenia. Ordered By: RANDY FAN Interpreted By: Chase Krause MD, 01/29/2024 5:25 PM us Randy Fan MD GENERAL IMAGING Final R esult documented in this encounter Visit Diagnoses Diagnosis Thoracic vertebral fracture (CMS/HCC HHS/HCC) Closed fracture of dorsal (thoracic) vertebra without mention of spinal cord injury documented in this encounter Care Teams Market Sales Manager Relationship Specialty Start Date End Date None, Provider, PCP - General UNKNOWN PHYSICIAN SPECIALTY 01/25/24 documented as of this encounter
--- OUTSIDE RECORDS SUMMARY | 2024-10-31 03:58 | XMS_ITS | Encounter Summary ---
Author Organization [facility] Address [address] [place] [address]. [place] [address] [place] [address] Care Team Providers Care Meat Stringer Name Role Phone Sabrina Ruffin MD Primary Care Provider +1- [phone] Encounter Details Date Type Department Care Team (Latest Contact Info) Description 03/02/2024 1:30 PM CDT - 03/02/2024 11:59 PM CDT Hospital Encounter [facility] Diagnostic Imaging [address] [place], [place] [id number] Randy Wesley MD [address] [facility] [address] [place], [place] [id number] Discharge Disposition: Home or Self Care (Routine [...] Diagnosis Comments XR THOR SPINE 2V Routine 03/02/2024 2:08 PM CDT T10 vertebral fracture ([facility]/HCC [facility]) documented in this encounter Results * XR THOR SPINE 2V (03/02/2024 2:08 PM CDT) Anatomical Region Laterality Modality Spine Radiographic Zhane ging 03/08/2024 4:50 PM CDT Impressions 03/08/2024 5:01 PM CDT =====IMPRESSION:===== 1. Moderately compromised exam. Grossly, no acute fracture is shown. If there is clinical concern for occult acute fracture, consider CT or MRI to better characterize. 2. Chronic compression fracture and vertebroplasty at T12. 3. Marked thoracic spondylosis and mild scoliosis. Ordered By: RANDY WESLEY Interpreted By: Chase Krause MD, 03/08/2024 4:50 PM Narrative 03/08/2024 5:01 PM CDT Exam date/time: 03/02/2024 1:46 PM Examination: Thoracic Spine 3 views Reason For Exam: ?? T10 fracture. ?? Comparison: 01/25/2024 Findings: Exam is mildly compromised on the lateral view due to motion artifact. The cervicothoracic junction is obscured by overlying shoulders. Mild thoracolumbar scoliosis. Bones are somewhat osteopenic diffusely. Chronic severe thoracic spondylosis with disc space narrowing, degenerative endplate irregularity and osteophytes at each level. Bridging spurs at multiple consecutive levels compatible with diffuse idiopathic skeletal hyperostosis. Chronic ankylosis at multiple levels. Additional degenerative changes in the visualized cervical spine and lumbar spine. Chronic compression fracture and vertebroplasty at T12. No definite acute fractures. Ventriculoperitoneal shunt catheter overlies the right chest. Cholecystectomy clips are noted. Procedure Note Chase Krause MD - 03/08/2024 Exam date/time: 03/02/2024 1:46 PM Examination: Thoracic Spine 3 views Reason For Exam: T10 fracture. Comparison: 01/25/2024 Findings: Exam is mildly compromised on the lateral view due to motionartifact. The cervicothoracic junction is obscured by overlying shoulders.Mild thoracolumbar scoliosis. Bones are somewhat osteopenic diffusely.Chronic severe thoracic spondylosis with disc space narrowing,degenerative endplate irregularity and osteophytes at each level. Bridgingspurs at multiple consecutive levels compatible with diffuse idiopathicskeletal hyperostosis. Chronic ankylosis at multiple levels. Additionaldegenerative changes in the visualized cervical spine and lumbar spine.Chronic compression fracture and vertebroplasty at T12. No definite acutefractures. Ventriculoperitoneal shunt catheter overlies the right chest.Cholecystectomy clips are noted. =====IMPRESSION:===== 1. Moderately compromised exam. Grossly, no acute fracture is shown. Ifthere is clinical concern for occult acute fracture, consider CT or MRI tobetter characterize. 2. Chronic compression fracture and vertebroplasty at T12. 3. Marked thoracic spondylosis and mild scoliosis. Ordered By: RNADY WESLEY Interpreted By: Chase Krause MD, 03/08/2024 4:50 PM us Randy Wesley MD GENERAL IMAGING Final R esult documented in this encounter Visit Diagnoses Diagnosis T10 vertebral fracture (CMS/HCC HHS/HCC) Closed fracture of dorsal (thoracic) vertebra without mention of spinal cord injury documented in this encounter Care Teams Meat Stringer Relationship Specialty Start Date End Date Sabrina Ruffin MD [address] [facility] [address] [place] [address] PCP - General FAMILY PRACTICE 03/02/24 documented as of this encounter
== END 2024-10-24 07:05 | disposition home or self-care (01) ==
PROVIDERS: Emergency Provider Emergency Medicine; PCP Family Medicine
DX: R07.89 Other chest pain (principal); G20.A1 Parkinson's disease without dyskinesia, without mention of fluctuations; I10 Essential (primary) hypertension; E55.9 Vitamin D deficiency, unspecified; E89.0 Postprocedural hypothyroidism; E78.49 Other hyperlipidemia; D50.8 Other iron deficiency anemias; G91.2 (Idiopathic) normal pressure hydrocephalus; G47.30 Sleep apnea, unspecified; F51.04 Psychophysiologic insomnia; M18.9 Osteoarthritis of first carpometacarpal joint, unspecified; Z98.2 Presence of cerebrospinal fluid drainage device; Z96.659 Presence of unspecified artificial knee joint; Z98.49 Cataract extraction status, unspecified eye; Z87.440 Personal history of urinary (tract) infections; Z79.899 Other long term (current) drug therapy
CPT/HCPCS: 36415; 71046; 80053; 83690; 84484; 85025; 85055; 85610; 85730; 93005; 99284; A9270

== ENCOUNTER 2025-01-03 09:41 | Outpatient (CLI) | payer MEDICARE, OTHER, SELFPAY ==
[2025-01-03 10:06] LABS: Basophils Percent Auto 0.5 % (0.2-1.2); Eosinophils Absolute Auto 0.2 K/mm3 (0-0.3); Eosinophils Percent Auto 2.6 % (0-4.4); Hematocrit 35.9 % (37.0-47.0); Hemoglobin 10.8 g/dL (12.0-15.0); Immature Granulocyte Absolute 0.01 K/mm3 (0.00-0.031); Immature Granulocyte Percent A 0.2 % (0-0.5); Immature Platelet Fraction Pct 2.5 % (0.9-11.2); Lymphocytes Absolute Auto 1.19 K/mm3 (0.9-3.2); Lymphocytes Percent Auto 19.4 % (18.3-44.2); Mean Corpuscular HGB Conc 30.1 g/dl (32-36); Mean Corpuscular Volume 63.3 fl (80-100); Mean Platelet Volume 9.8 fl (7.4-10.4); Monocytes Absolute Auto 0.3 K/mm3 (0.1-0.6); Monocytes Percent Auto 4.9 % (2.6-8.5); Neutrophils Absolute Auto 4.4 K/mm3 (1.3-6.7); Neutrophils Percent Auto 72.4 % (45.5-73.1); Platelet Count Result 152 k/mm3 (150-375); Red Blood Count 5.67 M/mm3 (4.2-5.4); Red Cell Distribution Width 16.1 % (11.5-14.5); White Blood Count 6.1 K/mm3 (4.5-10.0)
[2025-01-03 10:16] LABS: Alanine Aminotransferase 15 U/L (6-35); Albumin Level 4.1 g/dL (3.5-5.1); Alkaline Phosphatase 67 U/L (38-126); Anion Gap 5 mmol/L (4-12); Aspartate Amino Transferase 22 U/L (14-36); Bilirubin,Total 1.1 mg/dL (0.2-1.3); Blood Urea Nitrogen 19 mg/dL (7-17); Carbon Dioxide 30 mmol/L (22-30); Chloride 102 mmol/L (98-107); Cholesterol 160 mg/dL (0-200); Estimated Glomerular Filt Rate 53; Glucose 125 mg/dL (65-110); HDL Direct 48 mg/dL; Potassium 4.7 mmol/L (3.4-5.0); Sodium 137 mmol/L (137-145); Triglycerides 135 mg/dL (<150)
[2025-01-03 10:27] LABS: LDL Cholesterol Direct 76 mg/dL
[2025-01-03 10:30] LABS: Iron 80 ug/dL (37-170)
[2025-01-03 10:43] LABS: Percent Iron Saturation 27 % (20-50)
[2025-01-03 10:44] LABS: Hemoglobin A1C 5.7 % (<5.7)
--- OUTSIDE RECORDS SUMMARY | 2025-01-03 10:46 | XMS_ITS | Clinical Summary ---
Author Organization [facility] Address [facility] [place] [address] Care Team Providers Care Carcass Trimmer Name Role Phone Sabrina Ruffin MD Primary Care Provider +1- [phone] Social History Tobacco Use Types Packs/Day Years [...] 65+ Years Completed 03/14/2022, 08/17/2017, 06/26/2010 Meningococcal B Vaccine Aged Out No l onger eligible based on patient's age to complete this topic Meningococcal Vaccine Aged Out No qian yara eligible based on patient's age to complete this topic RSV Immunizations Under 20 Months Aged Out No longer eligible based on patient's age to complete this topic Insurance MEDICARE [facility] Care Teams Carcass Trimmer Relationship Specialty Start Date End Date Sabrina Ruffin MD [address] [facility] [address] [place] [address] PCP - General FAMILY PRACTICE 03/02/24
[2025-01-03 10:49] LABS: Free T4 Free Thyroxine 1.55 ng/dL (0.78-2.19)
[2025-01-03 11:30] LABS: Ovalocytes 1+; Platelet Estimate Adequate (Adequate); Schistocytes None Seen; Tear Drop Cells 1+
== END 2025-01-03 09:42 | disposition home or self-care (01) ==
LOC: ANHLAB 09:43
PROVIDERS: PCP Family Medicine; Visit Provider Physician Assistant
DX: D64.9 Anemia, unspecified (principal); I10 Essential (primary) hypertension; E78.2 Mixed hyperlipidemia; F41.9 Anxiety disorder, unspecified; E11.9 Type 2 diabetes mellitus without complications; E07.9 Disorder of thyroid, unspecified
CPT/HCPCS: 36415; 80053; 80061; 82607; 82728; 83036; 83540; 83550; 84439; 84443; 85025; 85055

== ENCOUNTER 2025-05-30 16:31 | Emergency (ER) | payer MEDICARE, OTHER, SELFPAY ==
[2025-05-30] VITALS (14 sets, daily range): BP systolic 114–174; BP diastolic 53–94; PULSE 73–83; RESP 13–27; TEMP 36.7–37.2; O2SAT 92–99
--- NOTE | ~2025-05-30 | CT_ITS ---
EXAMINATION: CTA chest PE protocol DATE: 05/30/2025 22:22 CDT INDICATION: Shortness of breath with chest pain TECHNIQUE: Computed tomographic angiography (CTA) of the chest was performed with 100 mL Omnipaque-35 0 intravenous contrast. The dose-length product was 639.04 mGy-cm. Maximum intensity projection 3D-re constructions of the aorta and other arteries were constructed by the technologist on a separate work station. COMPARISON: None. Reference is made to plain film evaluation of the chest performed approximately 2 h ours earlier FINDINGS/OBSERVATIONS: PULMONARY ARTERIES: No filling defect is identified within the main or proximal pulmonary artery. The main pulmonary artery is not enlarged. THORACIC AORTA: No aneurysmal dilatation or dissection is present. The great vessels are intact LUNGS: Trace right basilar atelectasis. Cylindrical bronchiectasis. Bibasilar pleural thickening. Innumerable bilateral subcentimeter nodules. 5.6 mm nodule, right upper lobe, axial series, image 28. 4.3 mm nodule, right upper lobe, axial series, image 29. 4 mm nodule, right middle lobe, axial series, image 53. 3.4 mm nodule, right lower lobe, axial series, image 53. 3.6 mm nodule, right middle lobe, axial series, image 57. 3.5 mm nodule, right lower lobe, axial series, image 59. 7.8 mm nodule, pleural-based, right lower lobe, axial series, image 73. 4 mm nodule, left upper lobe, axial series, image 45. 4 mm nodule, left lower lobe, axial series, image 73. 5.5 mm nodule, left lower lobe, axial series, image 82. 5 mm nodule, right lower lobe, axial series, image 82. The remainder of the lungs are clear. MEDIASTINUM: No morphologically suspicious or pathologically enlarged lymph nodes are identified with in the mediastinum or bilateral axilla. BONES OF THE CHEST: No acute fracture. 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 Vertebral augmentation is identified within the vertebral body of T12. HEART: The heart is borderline enlarged, with a small pericardial effusion. Redemonstration of the small bore catheter within the superficial soft tissues, to the right of midli ne, likely a ventriculoperitoneal shunt. IMPRESSION: No pulmonary embolus. No thoracic aortic dissection. Innumerable pulmonary nodules, the largest measuring 7.8 mm for which follow-up as per Fleischner la delines is recommended (noncontrast enhanced CT at 3-6 months and then 18-24 months). 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 Reviewed, dictated and finalized at location A. IMPRESSION: No pulmonary embolus. No thoracic aortic dissection. Innumerable pulmonary nodules, the largest measuring 7.8 mm for which follow-up as per Fleischner guidelines is recommended (noncontrast enhanced CT at 3-6 mo nths and then 18-24 months). 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
--- NOTE | ~2025-05-30 | XR_ITS ---
CHEST RADIOGRAPH, PA AND LATERAL CLINICAL HISTORY: dyspnea . COMPARISON: 10/24/2024 TECHNIQUE: PA and lateral views of the chest. FINDINGS Small bore catheter projecting over the right hemithorax and right neck extending into the abdomen. The remainder of the cardiomediastinal silhouette is otherwise unremarkable. Elevation of the right hemidiaphragm with adjacent compressive atelectasis. Peribronchial thickening is also noted. The remainder of the lungs are clear IMPRESSION: Elevation of the right hemidiaphragm with adjacent compressive atelectasis. Peribronchial thickening. No focal infiltrate or effusion. If clinical suspicion persists, cross-sectional imaging (noncontrast enhanced CT examination of the c hest) is suggested for further evaluation. Reviewed, dictated and finalized at location A. IMPRESSION: Elevation of the right hemidiaphragm with adjacent compressive atelectasis. Peribronchial thickening. No focal infiltrate or effusion. If clinical suspicion persists, cross-sectional imaging (noncontrast enhanced C T examination of the chest) is suggested for further evaluation.
--- OUTSIDE RECORDS SUMMARY | 2025-05-30 16:34 | XMS_ITS | Encounter Summary ---
Author Organization [facility] Address [address] [place] [address] Care Team Providers Care Payment Rep Name Role Phone Willy Cummings MD Primary Care Provider +1- [phone] Cecilia Lim MD Primary Care Provider Rodolfo Mantilla MD Unavailable Sabrina Ruffin MD Primary Care Provider Encounter Details Date Type Department Care Team (Late st Contact Info) Description 12/08/2017 Orders Only [facility] Health Information Management [address] [place] [address] Nehemiah Munoz MD [address] [place] [id number] Social History Tobacco Use Types Packs/Day Years Used Date Smoking Tobacco: Never Comments Unknown Sex and Gender Information Value Date Recorded Sex Assigned at Not on file Legal Sex Female 1:04 AM SCARFER OPERATOR Gender Identity Not on file Sexual Orientation Not on file documented as of this encounter Plan of Treatment Not on file documented as of this encounter Visit Diagnoses Not on filedocumented in this encounter Care Teams Payment Rep Relationship Specialty Start Date End Date Willy Cummings MD [address] [place], [place] [id number] PCP - General 08/06/17 12/20/19 Cecilia Lim MD [address] [place] [address] PCP - General Family Medicine 12/21/19 12/30/20 Sabrina Ruffin MD [address] [place] [address] PCP - General Family Medicine 12/31/20 Rodolfo Mantilla MD [address] [place] [address] Consulting Physician Neurology 12/21/19 documented as of this encounter
--- OUTSIDE RECORDS SUMMARY | 2025-05-30 16:34 | XMS_ITS | Referral Summary ---
Author Organization [facility] Address [address] [place] [address] Care Team Providers Care Coconut Cooker Name Role Phone Rodolfo Mantilla MD Unavailable [...] study. 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 Assessment & Plan (09/16/2019 12:58 PM EMS EDUCATOR): Ms. Alex is a 73 y/o woman [...] CD/LD. Assessment & Plan (11/24/2018 12:07 PM EMS EDUCATOR): Assessment: Ms. 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 Pain of hand 08/10/2013 Immunizations Immunization Administration Dates Next Due Influenza, Quadrivalent, Hig [...] on file Legal Sex Female 1:04 AM EMS EDUCATOR Gender Identity Not on file Sexual Orientation Not on file Occupation Industry Job Start Date Job End Date retired Not on file Not on file Not on file Last Filed Vital Signs Vital Sign Reading Time Taken Comments Blood Pressure 110/68 07/04/2024 11:27 AM CDT Pulse 68 07/04/2024 11:27 AM CDT Temperature 36.5 C (97.7 F) 07/28/2020 2:00 PM CDT Respiratory Rate 20 07/28/2020 2:00 PM CDT Oxygen Saturation 96% 08/29/2021 11:15 AM CDT Inhaled Oxygen Concentration - - Weight 102.1 kg (225 lb) 07/04/2024 11:27 AM CDT Height 163.8 cm (5' 4.5) 07/04/2024 11:27 AM CD T Body Mass Index 38.02 07/04/2024 11:27 AM CDT Plan of Treatment Not on file Medical Devices Implanted Type Area Elevating Grader Operator Device Identifier Shelf Expiration Date Model / Serial / Lot [employer] [id number] Nitesh Antibiotic Kit Catheter Sterile Latex Free - [id number] Implanted:Qty: 1 on 07/27/2020 by Leobardo Perez MD at [facility] Right: Head [employer] 12/19/2021 [id number] / / [id number] [employer] X [id number] Strata Ii Csf Programmable Flow Control Ball Spring Mechanism - [id number] Implanted:Qty: 1 on 07/27/2020 by Leobardo Perez MD at [facility] Right: Head [employer] 11/19/2022 [id number] / / [id number] Procedures Procedure Name Priority Date/Time Associated Diagnosis Comments OCCULT BLOOD, FECAL (FIT) STAT 05/05/2017 7:12 PM CDT COLONOSCOPY 07/27/2012 12:00 AM CDT from Last 3 Months or Most Recently Relevant to Health Maintenance Results * (ABNORMAL) Occult blood, fecal non neoplasm screening (05/05/2017 7:12 PM CDT) Occult blood, fecal Positive(A) Negative [facility]AE[facility] ([facility]INES) Collection date , feces [id number] AVINASH BAEZ ([facility]ES) Collection time 1, feces 1911 [facility]IN[facility]AE[facility] ([facility]ES) Stool 05/05/2017 7:12 PM CDT 05/05/2017 7:14 PM CDT us Jeremiah Brown Jr., MD LAB BODY FLUIDS AN D STOOLS ORDERABLES Final Result [facility]IN[facility]AE[facility] (HINES) 1 [facility] Department [place] [address] * COLONOSCOPY (07/27/2012 12:00 AM CDT) Anatomical Region Laterality Modality Other Narrative 07/27/2012 12:00 AM CDT Ordered by an unspecified provider. Procedure Note ProviderClifford MD - 07/27/2012 12:00 AM CDT PROCEDURE REPORT Patient: JONNIE ALEX Account: [id number] Room No: : 1945 Patient Type: SDS Attend.: Christopher Grant M.D. Admit Date: 07/27/2012 Dict.: Christopher Grant M.D. Disch. Date: NAME OF PROCEDURE: Colonoscopy. DATE: 07/27/12. HISTORY: 66-year-old female presents for screening colonoscopy. PHYSICAL EXAMINATION: Morbidly obese female. Lungs are clear.Cardiovascular exam is unremarkable. PROCEDURE: Colonoscopy was attempted with the [facility] ([facility]) video endoscope.She was premedicated by anesthesia. On [...] Recently Relevant to Health Maintenance Insurance MEDICARE [facility] MEDICARE [facility] MEDICARE [facility] Advance Directives For more information, please contact: [phone] * Full Code (Latest Code Status on File) Date Activated Date Inactivated Comments 07/23/2020 3:27 PM 07/28/2020 7:16 PM Care Teams Coconut Cooker Relationship Specialty Start Date End Date Sabrina Ruffin MD [address] [facility] [address] [place] [address] PCP - General Family Medicine 12/31/20 Rodolfo Mantilla MD [address] [place] [address] Consulting Physician Neurology 12/21/19
--- OUTSIDE RECORDS SUMMARY | 2025-05-30 16:34 | XMS_ITS | Clinical Summary ---
Author Organization [facility] Address [address] [place] [address] Care Team Providers Care Access Tech Name Role Phone Rodolfo Mantilla MD Unavailable [...] study. 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 Assessment & Plan (09/16/2019 12:58 PM HEEL COMPRESSOR): Ms. Alex is a 73 y/o woman [...] CD/LD. Assessment & Plan (11/24/2018 12:07 PM HEEL COMPRESSOR): Assessment: Ms. Alex is a 72y/o woman [...] on file Legal Sex Female 1:04 AM HEEL COMPRESSOR Gender Identity Not on file Sexual Orientation [...] Health Maintenance Due Date Last Done Comments Osteoporosis Screening-Bone Density Scan 1945 Hepatitis B Screening 1962 Well Visit 65+ 2009 Zoster Vaccine (2 of 3) 10/04/2014 08/09/2014 DTaP/Tdap/Td Vaccine (2 - Td or Tdap) 12/16/2020 12/16/2010 Depression Screening 07/23/2021 07/23/2020 Fall Risk Assessment 07/28/2021 07/28/2020 Influenza Vaccine (#1) 2025 0, 07/26/2019, 08/16/2018, Additional history exists Colon Cancer Screening-CT Colonography Discontinued 07/27/2012 Colon Cancer Screening-Colonoscopy Discontinued 07/27/2012 Colon Cancer Screening-DNA Stool Discontinued 07/27/20 12 Colon Cancer Screening-Sigmoidoscopy Discontinued 07/27/2012 Colon Cancer Screening-FIT Discontinued 05/05/2017, Colon Cancer Screening-FOBT Discontinued 05/05/2017, 1 Colorectal Cancer Screening Discontinued Pneumococcal vaccine 65+ Completed 08/17/2017, 10/2009 Medical Devices Implanted Type Area Hoop Maker Device Identifier Shelf Expiration Date Model / Serial / Lot Med[employer]onic Inc 64641 Nitesh Antibiotic Kit Catheter Sterile Latex Free - [id number] Implanted:Qty: 1 on 07/27/2020 by Leobardo Perez MD at [facility] Right: Head [employer] 12/19/2021 [id number] / / [id number] Medtronic U[employer] X 65695 Strata Ii Csf Programmable Flow Control Ball [place] Mechanism - [id number] Implanted:Qty: 1 on 07/27/2020 by Leobardo Perez MD at [facility] Right: Head [employer] Inc 11/19/2022 [id number] / / [id number] Procedures Procedure Name Priority Date/Time Associated Diagnosis [...] D STOOLS ORDERABLES Final Result AVINASH BAEZ (GAVIN) 1 [facility] Department of Laboratories [place], [place] [id number] * COLONOSCOPY (07/27/2012 12:00 AM CDT) Anatomical Region Laterality Modality Other Narrative 07/27/2012 12:00 AM CDT Ordered by an unspecified provider. Procedure Note Provider, MD Clifford - 07/27/2012 12:00 AM CDT PROCEDURE REPORT Patient: JONNIE ALEX Account: [id number] Room No: : 1945 Patient Type: SDS Attend.: Christopher Grant M.D. Admit Date: 07/27/2012 Dict.: Christopher Grant M.D. Disch. Date: NAME OF PROCEDURE: Colonoscopy. DATE: 07/27/12. HISTORY: 66-year-old female presents for screening colonoscopy. PHYSICAL EXAMINATION: Morbidly obese female. Lungs are clear.Cardiovascular exam is unremarkable. PROCEDURE: Colonoscopy was attempted with the [employer] video endoscope.She was premedicated by anesthesia. On [...] Recently Relevant to Health Maintenance Insurance MEDICARE [facility] MEDICARE [facility] MEDICARE [facility] [facility] Advance Directives For more information, please contact: [phone] * Full Code (Latest Code Status on File) Date Activated Date Inactivated Comments 07/23/2020 3:27 PM 07/28/2020 7:16 PM Care Teams Access Tech Relationship Specialty Start Date End Date Sabrina Ruffin MD [address] [facility] [address] [place] [id number] PCP - General Family Medicine 12/31/20 Rodolfo Mantilla MD [address] [place] [address] Consulting Physician Neurology 12/21/19
--- OUTSIDE RECORDS SUMMARY | 2025-05-30 16:34 | XMS_ITS | Encounter Summary ---
Author Organization [facility] Address [address] [place] [address] Phone Care Team Providers Care Follow Up Manager Name Role Phone Brittny Salazar MD Primary Care Provider + -[phone] Willy Cummings MD Primary Care Provider +[phone]- [phone] Brittny Salazar MD Primary Care Provider + -[phone] Willy Cummings MD Primary Care Provider +- [phone] Brittny Salazar MD Primary Care Provider + -[phone] Willy Cummings MD Primary Care Provider +- [phone] Brittny Salazar MD Primary Care Provider + -[phone] Willy Cummings MD Primary Care Provider +- [phone] Willy Cummings MD Primary Care Provider +- [phone] Cecilia Lim MD Primary Care Provider Rodolfo [...] on file Legal Sex Female 1:04 AM PRIVATE EYE Gender Identity Not on file Sexual Orientation [...] on filedocumented in this encounter Care Teams Follow Up Manager Relationship Specialty Start Date End Date Brittny Salazar MD [address] [address] PCP - General 06/05/17 06/11/17 Willy Cummings MD [address] [place] [address] PCP - General 06/12/17 06/14/17 Brittny Salazar MD [address] [address] PCP - General 06/15/17 06/15/17 Willy Cummings MD [address] [place] [address] PCP - General 06/16/17 06/23/17 Brittny Salazar MD [address] [address] PCP - General 06/24/17 06/24/17 Willy Cummings MD [address] [place] [address] PCP - General 06/25/17 06/25/17 Brittny Salazar MD [address] [address] PCP - General 06/26/17 07/15/17 Willy Cummings MD [address] [place] [address] PCP - General 07/16/17 08/05/17 Willy Cummings MD [address] [place] [address] PCP - General 08/06/17 12/20/19 Cecilia Lim MD [address] [place] [address] PCP - General Family Medicine 12/21/19 12/30/20 Sabrina Ruffin MD [address] [place] [address] PCP - General Family Medicine 12/31/20 Rodolfo Mantilla MD [address] [place] [address] Consulting Physician Neurology 12/21/19 documented as of this encounter
--- OUTSIDE RECORDS SUMMARY | 2025-05-30 16:34 | XMS_ITS | Encounter Summary ---
Author Organization [facility] Address [address] [place] [address] Phone Care Team Providers Care Spot Checker Name Role Phone Willy Cummings MD Primary Care Provider +1- [phone] Cecilia Lim MD Primary Care Provider Rodolfo Mantilla MD Unavailable Sabrina Ruffin MD Primary Care Provider Encounter Details Date Type Department Care Team (Late st Contact Info) Description 12/08/2017 Orders Only [facility] ProviderClifford MD [address] [place] [address] Social History Tobacco Use Types Packs/Day Years Used Date Smoking Tobacco: Never Comments Unknown Sex and Gender Information Value Date Recorded Sex Assigned at Not on file Legal Sex Female 1:04 AM ASSEMBLY INSTRUCTIONS WRITER Gender Identity Not on file Sexual Orientation Not on file documented as of this encounter Plan of Treatment Not on file documented as of this encounter Procedures Procedure Name Priority Date/Time Associated Diagnosis Comments SURGICAL PATHOLOGY 12/08/2017 12 :00 AM ASSEMBLY INSTRUCTIONS WRITER documented in this encounter Results * SURGICAL PATHOLOGY (12/08/2017 12:00 AM ASSEMBLY INSTRUCTIONS WRITER) Narrative 12/08/2017 12:00 AM ASSEMBLY INSTRUCTIONS WRITER Ordered by an unspecified provider. Historical Provider LAB PATHOLOGY ORDERABLES Final Result documented in this encounter Visit Diagnoses Not on filedocumented in this encounter Care Teams Spot Checker Relationship Specialty Start Date End Date Willy Cummings MD [address] [place] [address] PCP - General 08/06/17 12/20/19 Cecilia Lim MD [address] [place] [address] PCP - General Family Medicine 12/21/19 12/30/20 Sabrina Ruffin MD [address] [place] [address] PCP - General Family Medicine 12/31/20 Rodolfo Mantilla MD [address] [place] [address] Consulting Physician Neurology 12/21/19 documented as of this encounter
--- OUTSIDE RECORDS SUMMARY | 2025-05-30 16:34 | XMS_ITS | Encounter Summary ---
Author Organization [facility] Address [address] [place] [address] Care Team Providers Care Electric Stop Installer Name Role Phone Willy Cummings MD Primary Care Provider +1- [phone] Cecilia Lim MD Primary Care Provider Rodolfo Mantilla MD Unavailable Sabrina Ruffin MD Primary Care Provider Encounter Details Date Type Department Care Team (Late st Contact Info) Description 12/08/2017 Orders Only [address] [address] Nehemiah Munoz MD [address] [place] [address] Social History Tobacco Use Types Packs/Day Years Used Date Smoking Tobacco: Never Comments Unknown Sex and Gender Information Value Date Recorded Sex Assigned at Not on file Legal Sex Female 1:04 AM 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 Gender Identity Not on file Sexual Orientation Not on file documented as of this encounter Plan of Treatment Not on file documented as of this encounter Visit Diagnoses Not on filedocumented in this encounter Care Teams Electric Stop Installer Relationship Specialty Start Date End Date Willy Cummings MD [address] [place] [address] PCP - General 08/06/17 12/20/19 Cecilia Lim MD [address] [place] [address] PCP - General Family Medicine 12/21/19 12/30/20 Sabrina Ruffin MD [address] [place] [address] PCP - General Family Medicine 12/31/20 Rodolfo Mantilla MD [address] [place] [address] Consulting Physician Neurology 12/21/19 documented as of this encounter
--- OUTSIDE RECORDS SUMMARY | 2025-05-30 16:34 | XMS_ITS | Encounter Summary ---
Author Organization [facility] Address [address] [place] [address] Phone Care Team Providers Care Iv Therapy Nurse Name Role Phone Brittny Salazar MD Primary Care Provider [phone] Miscellaneous, Not In File Primary Care Provider Unavailable Willy Cummings MD Primary Care Provider + [phone] Willy Cummings MD Primary Care Provider + [phone] Brittny Salazar MD Primary Care Provider +[phone] Willy Cummings MD Primary Care Provider + [phone] Willy Cummings MD Primary Care Provider + [phone] Brittny Salazar MD Primary Care Provider +[phone] Willy Cummings MD Primary Care Provider + [phone] Brittny Salazar MD Primary Care Provider +[phone] Willy Cummings MD Primary Care Provider + [phone] Brittny Salazar MD Primary Care Provider +[phone] Willy Cummings MD Primary Care Provider + [phone] Brittny Salazar MD Primary Care Provider +[phone] Willy Cummings MD Primary Care Provider + [phone] Willy Cummings MD Primary Care Provider +- [phone] Cecilia Lim MD Primary Care Provider Rodolfo [...] on file Legal Sex Female 1:04 AM DISPENSARY ATTENDANT Gender Identity Not on file Sexual [...] on filedocumented in this encounter Care Teams Iv Therapy Nurse Relationship Specialty Start Date End Date Brittny Salazar MD [address] [address] PCP - General 05/15/09 05/11/17 Miscellaneous, Not In File PCP - General 05/12/17 Willy Cummings MD [address] [place] [address] PCP - General 05/14/17 05/14/17 Willy Cummings MD [address] [place] [address] PCP - General 05/15/17 05/17/17 Brittny Salazar MD [address] [address] PCP - General 05/18/17 05/31/17 Willy Cummigns MD [address] [place] [address] PCP - General 06/01/17 06/03/17 Willy Cummings MD [address] [place] [address] PCP - General 06/04/17 06/04/17 Brittny Salazar MD [address] [address] PCP - General 06/05/17 06/11/17 Willy Cummings MD [address] [place] [address] PCP - General 06/12/17 06/14/17 Brittny Salazar MD [address] [address] PCP - General 06/15/17 06/15/17 Willy Cummings MD [address] [place] [address] PCP - General 06/16/17 06/23/17 Brittny Salazar MD [address] [address] PCP - General 06/24/17 06/24/17 Willy Cummings MD [address] [place] [address] PCP - General 06/25/17 06/25/17 Brittny Salazar MD [address] [address] PCP - General 06/26/17 07/15/17 Willy Cummings MD [address] [place] [address] PCP - General 07/16/17 08/05/17 Willy Cummings MD [address] [place] [address] PCP - General 08/06/17 12/20/19 Cecilia Lim MD [address] [place] [address] PCP - General Family Medicine 12/21/19 12/30/20 Sabrina Ruffin MD [address] [facility] [address] [place] [address] PCP - General Family Medicine 12/31/20 Rodolfo Mantilla MD [address] [place] [address] Consulting Physician Neurology 12/21/19 documented as of this encounter
--- OUTSIDE RECORDS SUMMARY | 2025-05-30 16:34 | XMS_ITS | Clinical Summary ---
Author Organization [facility] Address [facility] [place] [address] Care Team Providers Care Equipment Washer Name Role Phone Sabrina Ruffin MD Primary Care Provider +1- [phone] Social History Tobacco Use Types Packs/Day Years Used Date Smoking Tobacco: Never Assessed Comments Unknown Sex and Gender Information Value Date Recorded Sex Assigned at Not on file Legal Sex Female 1:25 PM CDT Gender Identity Not on file Sexual Orientation Not on file Plan of Treatment Health Maintenance Due Date Last Done Comments Annual Medicare Wellness Visit 2009 Dexa Scan (General) 2009 Zoster Vaccines (2 of 3) 10/04/2014 08/09/2014 RSV Immunization or 60+ Years (1 - 1-dose 75+ series) 2019 DTaP, Tdap and Td Vaccines (2 - Td or Tdap) 12/16/2020 12/16/2010 COVID-19 Vaccine ( season) 2024 08/19/2022, 03/03/2022, 08/17/2021, Additional history exists Pneumococcal Vaccine: 50+ Years Completed 03/14/2022, 08/17/2017, 06/26/2010 Meningococcal B Vaccine Aged Out No l onger eligible based on patient's age to complete this topic Meningococcal Vaccine Aged Out No qian yara eligible based on patient's age to complete this topic RSV Immunizations Under 20 Months Aged Out No longer eligible based on patient's age to complete this topic Insurance MEDICARE [facility] Care Teams Equipment Washer Relationship Specialty Start Date End Date Sabrina Ruffin MD [address] [facility] [address] [place] [address] PCP - General FAMILY PRACTICE 03/02/24
--- NOTE | 2025-05-30 17:40 | ECG_ITS ---
Test Date: 2025-05-30 17:45:00 Measurements Intervals Lenora Rate: 76 P: 37 ME: 168 QRS: 1 QRSD: 96 T: 11 QT: 379 QTc: 427 Interpretive Statements SINUS RHYTHM CONSIDER INFERIOR INFARCT, AGE INDETERMINATE ABNORMAL ECG Compared to ECG 10/24/2024 05:37:49 No significant changes Electronically Signed On 05-30-2025 19:34:54 CDT by Danny Valle D.O.
[2025-05-30 18:09] LABS: Hematocrit 32.2 % (37.0-47.0); Hemoglobin 10.0 g/dL (12.0-15.0); Immature Granulocyte Percent A 0.4 % (0-0.5); Immature Platelet Fraction Pct 2.4 % (0.9-11.2); Lymphocytes Absolute Auto 1.52 K/mm3 (0.9-3.2); Mean Corpuscular HGB Conc 31.1 g/dl (32-36); Mean Corpuscular Hemoglobin 19.3 pg (26-34); Mean Corpuscular Volume 62.2 fl (80-100); Nucleated Red Blood Cells Absolute Auto 0.000 K/mm3 (0.0-0.012); Nucleated Red Blood Cells Perc 0.0 % (0.0-0.2); Platelet Count Result 148 k/mm3 (150-375); Red Blood Count 5.18 M/mm3 (4.2-5.4); White Blood Count 8.0 K/mm3 (4.5-10.0)
[2025-05-30 18:20] LABS: Alanine Aminotransferase 17 U/L (6-35); Albumin Level 4.0 g/dL (3.5-5.1); Alkaline Phosphatase 61 U/L (38-126); Anion Gap 6 mmol/L (4-12); Aspartate Amino Transferase 25 U/L (14-36); Bilirubin,Total 2.2 mg/dL (0.2-1.3); Blood Urea Nitrogen 21 mg/dL (7-17); Calcium 8.8 mg/dL (8.4-10.2); Carbon Dioxide 25 mmol/L (22-30); Chloride 101 mmol/L (98-107); Estimated CRCL calculation 48 ml/min; Estimated Glomerular Filt Rate 58; Glucose 129 mg/dL (65-110); Potassium 3.9 mmol/L (3.4-5.0); Sodium 132 mmol/L (137-145); Total Protein 7.2 g/dL (6.3-8.2)
[2025-05-30 18:25] LABS: Microcytosis 1+ (NORMAL); Ovalocytes 1+; Schistocytes None Seen
--- NOTE | 2025-05-30 18:31 | ED_ITS ---
HPI - SOB/Dyspnea General Chief Complaint: Shortness of Breath/Dyspnea Stated Complaint: SOB Time Seen by Provider: 05/30/25 18:17 History of Present Illness HPI Narrative: 79-year-old female with history of type 2 diabetes, Parkinson's disease, hyperlipidemia, thalassemia, anxiety, anemia, hypertension CKD, GERD presents to the emergency department for shortness of breath, cough, myalgias that started yesterday. Patient reports a dry cough and subjective fevers, chills, shortness of breath. She is also reporting a central chest pressure that occurs with coughing and deep inspiration that started yesterday. She denies lower extremity edema, hemoptysis, abdominal pain, radiating chest pain, exertional chest pain. Denies history of asthma or COPD. She does not smoke. Denies cardiac history. She does endorse a history of provoked DVT about 10 years ago after a knee replacement. She has been off of anticoagulants for several years. Related Data Allergies Allergy/AdvReac Type Severity Reaction Status Date / Time No Known Allergies Allergy Verified 05/30/25 16:33 Review of Systems 2 Review of Systems: All systems reviewed & are unremarkable except as noted in HPI and below PMFSH Past Medical History Medical History Elevated fasting glucose Vitamin D deficiency Urinary tract infection Urinary frequency Thoracic spine pain Tenosynovitis, de Quervain Spider bite Sinobronchitis Right wrist pain Right groin pain Primary osteoarthritis of first carpometacarpal joint of right hand Postprocedural hypothyroidism Parkinson's disease Pain of right thumb Other specified diabetes mellitus without complications Other specified arthritis, multiple sites Other iron deficiency anemias Other chronic pain Osteoporotic compression fracture of spine with routine healing Muscle strain 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 Vomiting without nausea, intractable Hyperlipidemia, type IIb Grief reaction Flank pain Falling episodes Essential hypertension Effusion, right knee Dysuria Cough Communicating hydrocephalus Chest pain, atypical Bronchitis, not specified as acute or chronic Acute renal insufficiency Acute deep vein thrombosis (DVT) of tibial vein of right lower extremity Abnormal finding on MRI of brain Chronic insomnia Benign essential HTN Normal pressure hydrocephalus 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 to medical condition Central retinal vein occlusion, left eye (~11/2019) Carpal tunnel syndrome Cholecystectomy planned Fibroid tumor Hydrocephalus HTN (hypertension) Arthritis Anemia Multiple allergies Spinal stenosis Thalassemia minor Anxiety Parkinson disease (~2018) Surgical History Surgical History 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 Neurology History of carpal tunnel release History of knee replacement Most recent was approx 2018. [address] Hassan Cataract extraction status H/O partial thyroidectomy H/O vaginal hysterectomy Approx 2005 Family History Family History Mother Family history of suicide Hypertension Patient's mother is Father Family history of emphysema Patient's father is Other Arthritis Social History Social History Social History: Smoking status: Never smoker Second hand tobacco smoke exposure: No Alcohol intake: current Alcohol use details: Occasionally Substance use: current Substance use type: marijuana Other substance usage details: medical marijuana that pt uses gummies. Lack of Transportation: No Lack of Food: Never True Current Housing: I Have Housing Concerned About Future Housing: No Difficulty Paying Gas/Electric Bills: No Difficulty Paying for Meds: No Currently Unemployed: No Education: Master's Degree or Higher Difficulty w/ Childcare or Family Care: No Living arrangements: with family Occupation/Education: retired Gender identity (if verbalized by the patient): Female Sexual Orientation (if Verbalized by the Patient): Straight or Heterosexual Spiritual care concerns: No Exam 2 Narrative: GENERAL: Well-appearing, well-nourished, and in no acute distress. HEAD: Normocephalic, atraumatic. EYES: PERRLA and EOMI. ENT: Nares clear, no rhinorrhea or epistaxis. Mucous membranes moist. NECK: Supple. CHEST: Clear to auscultation. No respiratory distress. HEART: Regular rate and rhythm. No murmur heard. Normal peripheral pulses. ABDOMEN: Soft, nontender, nondistended, normal active bowel sounds. EXTREMITIES: Normal range of motion. No edema. SKIN: Warm, dry, no rash. NEURO: No focal deficits. Alert and oriented x3 Course Vital Signs Vital signs: Vital Signs Temperature 98.0 F 05/30/25 16:33 Pulse Rate 73 05/30/25 16:33 Respiratory Rate 16 05/30/25 16:33 Blood Pressure 131/53 L 05/30/25 16:33 Pulse Oximetry 97 05/30/25 16:33 Oxygen Delivery Room Air 05/30/25 16:33 Temperature 98.9 F 05/30/25 17:37 Pulse Rate 83 05/30/25 19:49 Respiratory Rate 13 05/30/25 18:45 Blood Pressure 154/68 H 05/30/25 18:00 Pulse Oximetry 95 05/30/25 18:45 Oxygen Delivery Room Air 05/30/25 17:43 MDM - SOB/Dyspnea MDM Narrative Medical decision making narrative: 79-year-old female presents emergency department for cough, myalgias, subjective fever, shortness of breath, chest pressure that occurs with inspiration and coughing for the past day. Vitals are stable. Patient is satting 90% on room air in no respiratory distress. Lung sounds are clear. CBC without leukocytosis. Hemoglobin is 10 with a low MCV which appears chronic her prior labs. Chemistries with an isolated elevated bilirubin of 2.2 with normal LFTs, normal alk-phos. No epigastric right upper quadrant tenderness. This may be due to hx of thalassemia. Lipase is normal. UA with trace leuk esterase, no white blood cells or red blood cells. Viral swabs are negative. Patient's proBNP is elevated to 1660, however this is normal when age adjusted and patient does not appear to be volume overloaded. EKG shows normal sinus rhythm with Q-waves in lead 3 which are unchanged from prior EKG, normal [place] interval, normal QRS duration, normal QTC, no ST elevations or depressions. Troponin is undetectable. Chest x-ray shows elevation of the right hemidiaphragm with adjacent compressive atelectasis, peribronchial thickening, no focal infiltrate or effusion. Patient's D-dimer is mildly elevated at 0.63. Will obtain CTA chest PE to evaluate for PE verses pneumonia not visualized on chest x-ray. CTA chest PE IMPRESSION: No pulmonary embolus. No thoracic aortic dissection. Innumerable pulmonary nodules, the largest measuring 7.8 mm for which follow-up as per Fleischner guidelines is recommended (noncontrast enhanced CT at 3-6 months and then 18-24 months). Severe degenerative disease within the thoracic spine, as detailed above.\ Patient and at bedside were updated on results. Patient's oxygen saturation remains 95 on room air and she is in no respiratory distress. I suspect her symptoms are due to viral bronchitis. Will start her on steroids and Tessalon Perles. She has an albuterol inhaler which I encouraged her to use. Her chest pain is atypical in nature and likely due to bronchitis. I advised follow-up closely with her PCP discussed strict ED return precautions. She is agreeable with the plan verbalized understanding. Discharged in stable condition Lab Data 05/30/25 17:53 05/30/25 17:53 Labs: Lab Results 05/30/25 05/30/25 05/30/25 Range/Units 17:53 18:43 18:56 WBC 8.0 (4.5-10.0) K/mm3 RBC 5.18 (4.2-5.4) M/mm3 Hgb 10.0 L (12.0-15.0) g/dL Hct 32.2 L (37.0-47.0) % MCV 62.2 L (80-100) fl MCH 19.3 L (26-34) pg MCHC 31.1 L (32-36) g/dl RDW 15.9 H (11.5-14.5) % Plt Count 148 L (150-375) k/mm3 MPV 10.4 (7.4-10.4) fl Immature Gran % (Auto) 0.4 (0-0.5) % Neut % (Auto) 72.2 (45.5-73.1) % Lymph % (Auto) 19.1 (18.3-44.2) % Antelope % (Auto) 7.7 (2.6-8.5) % Eos % (Auto) 0.3 (0-4.4) % Baso % (Auto) 0.3 (0.2-1.2) % Lymph # (Auto) 1.52 (0.9-3.2) K/mm3 Antelope # (Auto) 0.6 (0.1-0.6) K/mm3 Eos # (Auto) 0.0 (0-0.3) K/mm3 Baso # (Auto) 0.0 (0.0-0.1) K/mm3 Abs Immat Gran (auto) 0.03 (0.00-0.031) K/mm3 Absolute Neuts (auto) 5.8 (1.3-6.7) K/mm3 Absolute Nucleated RBC 0.000 (0.0-0.012) K/mm3 Band Neutrophils % Not Reportable Nucleated RBC % 0.0 (0.0-0.2) % Platelet Estimate Adequate (Adequate) % Immature Plt Fraction 2.4 (0.9-11.2) % Microcytosis 1+ (NORMAL) Ovalocytes 1+ Schistocytes None seen PT 15.7 H (11.1-14.7) Seconds INR 1.3 APTT 37.0 H (22.3-36.8) Seconds D-Dimer Cancelled Sodium 132 L (137-145) mmol/L Potassium 3.9 (3.4-5.0) mmol/L Chloride 101 (98-107) mmol/L Carbon Dioxide 25 (22-30) mmol/L Anion Gap 6 (4-12) mmol/L BUN 21 H (7-17) mg/dL Creatinine 0.93 (0.7-1.0) mg/dL Estim Creat Clear Calc 48 ml/min Estimated GFR 58 L (59 - ) Glucose 129 H (65-110) mg/dL Calcium 8.8 (8.4-10.2) mg/dL Magnesium Total Bilirubin 2.2 H (0.2-1.3) mg/dL AST 25 (14-36) U/L ALT 17 (6-35) U/L Alkaline Phosphatase 61 (38-126) U/L Troponin I (0.000-0.034) ng/mL NT-Pro-B Natriuret Pep Total Protein 7.2 (6.3-8.2) g/dL Albumin 4.0 (3.5-5.1) g/dL Lipase (23-300) U/L Urine Color (Yellow) Urine Appearance (Clear) Urine pH (5.0-9.0) Ur Specific [place] (1.001-1.035) Urine Protein (Negative) mg/dL Urine Glucose (UA) (Negative) mg/dL Urine Ketones (Negative) mg/dL Ur Blood (Man) (Negative) Urine Nitrate (Negative) Urine Bilirubin (Negative) Urine Urobilinogen (<2.0) mg/dL Leukocyte Esterase Rfl (Negative) MIMI/UL Urine RBC (0-2) /hpf Urine WBC (0-3) /hpf Ur Squamous Epith Cells (Few) /hpf Urine Bacteria /hpf Urine Casts Influenza A (RT-PCR) Negative (Negative) Influenza B (RT-PCR) Negative (Negative) RSV (RT-PCR) Negative (Negative) SARS-CoV-2 RNA (RT-PCR) Negative (Negative) 05/30/25 05/30/25 05/30/25 Range/Units 18:56 18:56 18:56 WBC (4.5-10.0) K/mm3 RBC (4.2-5.4) M/mm3 Hgb (12.0-15.0) g/dL Hct (37.0-47.0) % MCV (80-100) fl MCH (26-34) pg MCHC (32-36) g/dl RDW (11.5-14.5) % Plt Count (150-375) k/mm3 MPV (7.4-10.4) fl Immature Gran % (Auto) (0-0.5) % Neut % (Auto) (45.5-73.1) % Lymph % (Auto) (18.3-44.2) % Antelope % (Auto) (2.6-8.5) % Eos % (Auto) (0-4.4) % Baso % (Auto) (0.2-1.2) % Lymph # (Auto) (0.9-3.2) K/mm3 Antelope # (Auto) (0.1-0.6) K/mm3 Eos # (Auto) (0-0.3) K/mm3 Baso # (Auto) (0.0-0.1) K/mm3 Abs Immat Gran (auto) (0.00-0.031) K/mm3 Absolute Neuts (auto) (1.3-6.7) K/mm3 Absolute Nucleated RBC (0.0-0.012) K/mm3 Band Neutrophils % Nucleated RBC % (0.0-0.2) % Platelet Estimate (Adequate) % Immature Plt Fraction (0.9-11.2) % Microcytosis (NORMAL) Ovalocytes Schistocytes PT (11.1-14.7) Seconds INR APTT (22.3-36.8) Seconds D-Dimer 0.63 H Sodium (137-145) mmol/L Potassium (3.4-5.0) mmol/L Chloride (98-107) mmol/L Carbon Dioxide (22-30) mmol/L Anion Gap (4-12) mmol/L BUN (7-17) mg/dL Creatinine (0.7-1.0) mg/dL Estim Creat Clear Calc ml/min Estimated GFR (59 - ) Glucose (65-110) mg/dL Calcium (8.4-10.2) mg/dL Magnesium Cancelled 2.1 Total Bilirubin (0.2-1.3) mg/dL AST (14-36) U/L ALT (6-35) U/L Alkaline Phosphatase (38-126) U/L Troponin I < 0.012 (0.000-0.034) ng/mL NT-Pro-B Natriuret Pep Cancelled 1660 H Total Protein (6.3-8.2) g/dL Albumin (3.5-5.1) g/dL Lipase 27 (23-300) U/L Urine Color (Yellow) Urine Appearance (Clear) Urine pH (5.0-9.0) Ur Specific [place] (1.001-1.035) Urine Protein (Negative) mg/dL Urine Glucose (UA) (Negative) mg/dL Urine Ketones (Negative) mg/dL Ur Blood (Man) (Negative) Urine Nitrate (Negative) Urine Bilirubin (Negative) Urine Urobilinogen (<2.0) mg/dL Leukocyte Esterase Rfl (Negative) MIMI/UL Urine RBC (0-2) /hpf Urine WBC (0-3) /hpf Ur Squamous Epith Cells (Few) /hpf Urine Bacteria /hpf Urine Casts Influenza A (RT-PCR) (Negative) Influenza B (RT-PCR) (Negative) RSV (RT-PCR) (Negative) SARS-CoV-2 RNA (RT-PCR) (Negative) 05/30/25 05/30/25 Range/Units 18:57 19:46 WBC (4.5-10.0) K/mm3 RBC (4.2-5.4) M/mm3 Hgb (12.0-15.0) g/dL Hct (37.0-47.0) % MCV (80-100) fl MCH (26-34) pg MCHC (32-36) g/dl RDW (11.5-14.5) % Plt Count (150-375) k/mm3 MPV (7.4-10.4) fl Immature Gran % (Auto) (0-0.5) % Neut % (Auto) (45.5-73.1) % Lymph % (Auto) (18.3-44.2) % Antelope % (Auto) (2.6-8.5) % Eos % (Auto) (0-4.4) % Baso % (Auto) (0.2-1.2) % Lymph # (Auto) (0.9-3.2) K/mm3 Antelope # (Auto) (0.1-0.6) K/mm3 Eos # (Auto) (0-0.3) K/mm3 Baso # (Auto) (0.0-0.1) K/mm3 Abs Immat Gran (auto) (0.00-0.031) K/mm3 Absolute Neuts (auto) (1.3-6.7) K/mm3 Absolute Nucleated RBC (0.0-0.012) K/mm3 Band Neutrophils % Nucleated RBC % (0.0-0.2) % Platelet Estimate (Adequate) % Immature Plt Fraction (0.9-11.2) % Microcytosis (NORMAL) Ovalocytes Schistocytes PT (11.1-14.7) Seconds INR APTT (22.3-36.8) Seconds D-Dimer Sodium (137-145) mmol/L Potassium (3.4-5.0) mmol/L Chloride (98-107) mmol/L Carbon Dioxide (22-30) mmol/L Anion Gap (4-12) mmol/L BUN (7-17) mg/dL Creatinine (0.7-1.0) mg/dL Estim Creat Clear Calc ml/min Estimated GFR (59 - ) Glucose (65-110) mg/dL Calcium (8.4-10.2) mg/dL Magnesium Total Bilirubin (0.2-1.3) mg/dL AST (14-36) U/L ALT (6-35) U/L Alkaline Phosphatase (38-126) U/L Troponin I (0.000-0.034) ng/mL NT-Pro-B Natriuret Pep Total Protein (6.3-8.2) g/dL Albumin (3.5-5.1) g/dL Lipase Cancelled (23-300) U/L Urine Color Yellow (Yellow) Urine Appearance Clear (Clear) Urine pH 7.5 (5.0-9.0) Ur Specific [place] 1.014 (1.001-1.035) Urine Protein Negative (Negative) mg/dL Urine Glucose (UA) Negative (Negative) mg/dL Urine Ketones Negative (Negative) mg/dL Ur Blood (Man) Negative (Negative) Urine Nitrate Negative (Negative) Urine Bilirubin Negative (Negative) Urine Urobilinogen 1.0 (<2.0) mg/dL Leukocyte Esterase Rfl Trace H (Negative) MIMI/UL Urine RBC 0-2 (0-2) /hpf Urine WBC 0-5 (0-3) /hpf Ur Squamous Epith Cells None seen (Few) /hpf Urine Bacteria None seen /hpf Urine Casts 0-2 Influenza A (RT-PCR) (Negative) Influenza B (RT-PCR) (Negative) RSV (RT-PCR) (Negative) SARS-CoV-2 RNA (RT-PCR) (Negative) Discharge Plan Discharge Clinical Impression: Bronchitis, Hyperbilirubinemia, Multiple pulmonary nodules Patient Disposition: Home Condition: Stable Instructions: Antibiotic Form, Acute Bronchitis (ED), Pulmonary Nodules (ED) Additional Instructions: Your presentation is consistent with bronchitis as discussed. Please take the steroids and cough medication as directed and use your albuterol inhaler as directed. Please follow-up closely with her primary care provider. Incidentally your found to have several pulmonary nodules in her lungs with the largest measuring 7.8 mm. Recommend he follow-up closely with your primary care provider regarding this issue will likely need repeat CT scan in 3-6 months and again in 18-24 months for further evaluation. Additionally her bilirubin level was found to be elevated which may be due to her thalassemia. Please follow-up with her primary care provider regarding this. Return to the emergency department if you develop worsening or changing chest pain, shortness of breath, fever 100.4 or greater, your unable to tolerate food or fluids, or other concerning symptoms. Patient Language: Luxembourgish Prescriptions: New benzonatate 200 mg capsule 200 mg PO BID PRN (Reason: cough) Qty: 14 0RF prednisone 20 mg tablet 40 mg PO DAILY Qty: 10 0RF No Action nitroglycerin 0.4 mg tablet, sublingual 0.4 mg sublingual Q5M PRN (Reason: chest pain) Qty: 90 0RF Rx Instructions: do not exceed 3 doses per episode quetiapine [Seroquel] 50 mg tablet 50 mg PO QHS Qty: 90 1RF hydrocodone-acetaminophen 5-325 mg tablet 1 tablet PO Q6H PRN (Reason: pain) Qty: 60 0RF albuterol sulfate [Ventolin HFA] 90 mcg/actuation HFA aerosol inhaler See Rx Instructions .ROUTE .COMPLEX Qty: 18 1RF Dose Instruction: INHALE 1 PUFF BY MOUTH EVERY 4 HOURS NEEDED FOR SHORTNESS OF BREATH OR WHEEZING Rx Instructions: INHALE 1 PUFF BY MOUTH EVERY 4 HOURS NEEDED FOR SHORTNESS OF BREATH OR WHEEZING Breztri Aerosphere 160-9-4.8 mcg/actuation HFA aerosol inhaler 2 inh inhalation BID Qty: 10.7 0RF ibandronate 150 mg tablet See Rx Instructions .ROUTE .COMPLEX Qty: 4 2RF Dose Instruction: TAKE 1 TABLET BY MOUTH ONCE EVERY MONTH Rx Instructions: TAKE 1 TABLET BY MOUTH ONCE EVERY MONTH valsartan-hydrochlorothiazide 320-12.5 mg tablet See Rx Instructions .ROUTE .COMPLEX Qty: 180 0RF Dose Instruction: Take 1 tablet by mouth once daily Rx Instructions: Take 1 tablet by mouth once daily montelukast 10 mg tablet See Rx Instructions .ROUTE .COMPLEX Qty: 90 1RF Dose Instruction: TAKE 1 TABLET BY MOUTH ONCE DAILY AT BEDTIME Rx Instructions: TAKE 1 TABLET BY MOUTH ONCE DAILY AT BEDTIME escitalopram oxalate 10 mg tablet See Rx Instructions .ROUTE .COMPLEX Qty: 90 1RF Dose Instruction: Take 1 tablet by mouth once daily Rx Instructions: Take 1 tablet by mouth once daily levothyroxine 100 mcg tablet 100 mcg PO DAILY Qty: 90 1RF cyclobenzaprine 5 mg tablet See Rx Instructions .ROUTE .COMPLEX Qty: 60 0RF Dose Instruction: TAKE 1 TABLET BY MOUTH THREE TIMES DAILY Rx Instructions: TAKE 1 TABLET BY MOUTH THREE TIMES DAILY buspirone 5 mg tablet See Rx Instructions .ROUTE .COMPLEX Qty: 60 5RF Dose Instruction: Take 1 tablet by mouth twice daily as needed for anxiety Rx Instructions: Take 1 tablet by mouth twice daily as needed for anxiety atorvastatin 10 mg tablet See Rx Instructions .ROUTE .COMPLEX Qty: 100 1RF Dose Instruction: Take 1 tablet by mouth once daily Rx Instructions: Take 1 tablet by mouth once daily amlodipine 5 mg tablet See Rx Instructions .ROUTE .COMPLEX Qty: 90 1RF Dose Instruction: Take 1 tablet by mouth once daily Rx Instructions: Take 1 tablet by mouth once daily metoprolol succinate 50 mg tablet extended release 24 hr See Rx Instructions .ROUTE .COMPLEX Qty: 90 1RF Dose Instruction: Take 1 tablet by mouth once daily Rx Instructions: Take 1 tablet by mouth once daily gabapentin 300 mg capsule See Rx Instructions .ROUTE .COMPLEX Qty: 540 1RF Dose Instruction: TAKE 2 CAPSULES BY MOUTH THREE TIMES DAILY Rx Instructions: TAKE 2 CAPSULES BY MOUTH THREE TIMES DAILY Follow-up/Referrals: Michael Cooley MD [Primary Care Provider] -
--- OUTSIDE RECORDS SUMMARY | 2025-05-30 19:00 | XMS_ITS | Referral Summary ---
Author Organization [facility] Address [address] [place] [address] Care Team Providers Care Residential Assistant Name Role Phone Rodolfo Mantilla MD [...] study. Assessment & Plan (12/21/2019 10:56 AM TOWER EXCAVATOR OPERATOR): She had stage 2.5 parkinsonism characterized by [...] levodopa. Assessment & Plan (09/16/2019 12:58 PM TOWER EXCAVATOR OPERATOR): Ms. Alex is a 73 y/o woman [...] CD/LD. Assessment & Plan (11/24/2018 12:07 PM TOWER EXCAVATOR OPERATOR): Assessment: Ms. Alex is a 72y/o woman [...] on file Legal Sex Female 1:04 AM TOWER EXCAVATOR OPERATOR Gender Identity Not on file Sexual [...] on file Medical Devices Implanted Type Area [employer] Device Identifier Shelf Expiration Date Model / Serial / Lot [employer]onic Inc 99890 Nitesh Antibiotic Kit Catheter Sterile Latex Free - [id number] Implanted:Qty: 1 on 07/27/2020 by Leobardo Perez MD at [facility] Right: Head [employer] 12/19/2021 [id number] / / [id number] Med[employer] X 23457 Strata Ii Csf Programmable Flow Control Ball Spring Mechanism - [id number] Implanted:Qty: 1 on 07/27/2020 by Leobardo Perez MD at [facility] Right: Head [employer] 11/19/2022 [id number] / / [id number] Procedures Procedure Name Priority Date/Time Associated Diagnosis Comments OCCULT BLOOD, FECAL (FIT) STAT 05/05/2017 7:12 PM CDT COLONOSCOPY 07/27/2012 12:00 AM CDT from Last 3 Months or Most Recently Relevant to Health Maintenance Results * (ABNORMAL) Occult blood, fecal non neoplasm screening (05/05/2017 7:12 PM CDT) Occult blood, fecal Positive(A) Negative AVINASH BAEZ (VASHON) Collection date , feces [id number] AVINASH BAEZ (VASHON) Collection time 1, feces 1911 AVINASH BAEZ (VASHON) Stool 05/05/2017 7:12 PM CDT 05/05/2017 7:14 PM CDT us Jeremiah Brown Jr., MD LAB BODY FLUIDS AN D STOOLS ORDERABLES Final Result AVINASH BAEZ (VASHON) 1 [facility] Department [place] [address] * COLONOSCOPY (07/27/2012 12:00 AM CDT) Anatomical Region Laterality Modality Other Narrative 07/27/2012 12:00 AM CDT Ordered by an unspecified provider. Procedure Note ProviderClifford MD - 07/27/2012 12:00 AM CDT PROCEDURE REPORT Patient: JONNIE ALEX Account: [id number] Room No: : 1945 Patient Type: SDS Attend.: Christopher Grant M.D. Admit Date: 07/27/2012 Dict.: Christopher Grant M.D. Disch. Date: NAME OF PROCEDURE: Colonoscopy. DATE: 07/27/12. HISTORY: 66-year-old female presents for screening colonoscopy. PHYSICAL EXAMINATION: Morbidly obese female. Lungs are clear.Cardiovascular exam is unremarkable. PROCEDURE: Colonoscopy was attempted with the [employer] video endoscope.She was premedicated by anesthesia. On [...] Recently Relevant to Health Maintenance Insurance MEDICARE [facility] MEDICARE [facility] MEDICARE [facility] Advance Directives For more information, please contact: [phone] * Full Code (Latest Code Status on File) Date Activated Date Inactivated Comments 07/23/2020 3:27 PM 07/28/2020 7:16 PM Care Teams Residential Assistant Relationship Specialty Start Date End Date Sabrina Ruffin MD [address] [facility] [address] [place] [address] PCP - General Family Medicine 12/31/20 Rodolfo Mantilla MD [address] [place] [address] Consulting Physician Neurology 12/21/19
--- OUTSIDE RECORDS SUMMARY | 2025-05-30 19:00 | XMS_ITS | Clinical Summary ---
Author Organization [facility] Address [address] [place] [address] Care Team Providers Care Creative Writing Professor Name Role Phone Rodolfo Mantilla MD Unavailable [...] study. Assessment & Plan (12/21/2019 10:56 AM PLATFORM MILL SUPERVISOR): She had stage 2.5 parkinsonism characterized by [...] levodopa. Assessment & Plan (09/16/2019 12:58 PM PLATFORM MILL SUPERVISOR): Ms. Alex is a 73 y/o woman [...] CD/LD. Assessment & Plan (11/24/2018 12:07 PM PLATFORM MILL SUPERVISOR): Assessment: Ms. Alex is a 72y/o woman [...] balance. 4. Return in 6mos with Shruthi Rievro, [address] Mantilla. Call with [...] on file Legal Sex Female 1:04 AM PLATFORM MILL SUPERVISOR Gender Identity Not on file Sexual [...] 08/17/2017, 10/2009 Medical Devices Implanted Type Area Programmer Analyst Health It Device Identifier Shelf Expiration Date Model / Serial / Lot Medtronic Inc 50621 Nitesh Antibiotic Kit Catheter Sterile Latex Free - [id number] Implanted:Qty: 1 on 07/27/2020 by Leobardo Perez MD at [facility] Right: Head [employer] 12/19/2021 [id number] / / [id number] Medtronic Usa Inc X 13584 Strata Ii Csf Programmable Flow Control Ball Callands Mechanism - [id number] Implanted:Qty: 1 on 07/27/2020 by Leobardo Perez MD at [facility] Right: Head Med[employer]onic Inc 11/19/2022 [id number] / / [id number] Procedures Procedure Name Priority Date/Time Associated Diagnosis [...] ORDERABLES Final Result AVINASH BAEZ (GAVIN) [address] [facility] Department of Laboratories [place], [place] [id number] * COLONOSCOPY (07/27/2012 12:00 AM CDT) Anatomical Region Laterality Modality Other Narrative 07/27/2012 12:00 AM CDT Ordered by an unspecified provider. Procedure Note Provider, MD Clifford - 07/27/2012 12:00 AM CDT PROCEDURE REPORT Patient: JONNIE ALEX Account: [id number] Room No: : 1945 Patient Type: SDS Attend.: Christopher Grant M.D. Admit Date: 07/27/2012 Dict.: Christopher Grant M.D. Disch. Date: NAME OF PROCEDURE: Colonoscopy. DATE: 07/27/12. HISTORY: 66-year-old female presents for screening colonoscopy. PHYSICAL EXAMINATION: Morbidly obese female. Lungs are clear.Cardiovascular exam is unremarkable. PROCEDURE: Colonoscopy was attempted with the [employer] video endoscope.She was premedicated by anesthesia. On [...] Recently Relevant to Health Maintenance Insurance [facility]ICARE [facility] MEDICARE [facility] MEDICARE [employer] [facility] Advance Directives For more information, please contact: [phone] * Full Code (Latest Code Status on File) Date Activated Date Inactivated Comments 07/23/2020 3:27 PM 07/28/2020 7:16 PM Care Teams Creative Writing Professor Relationship Specialty Start Date End Date Sabrina Ruffin MD [address] [facility] [address] [place] [id number] PCP - General Family Medicine 12/31/20 Rodolfo Mantilla MD [address] [place] [address] Consulting Physician Neurology 12/21/19
--- OUTSIDE RECORDS SUMMARY | 2025-05-30 19:00 | XMS_ITS | Encounter Summary ---
Author Organization [facility] Healthcare Address [address] [place] [address] Care Team Providers Care Secretary Bookkeeper Name Role Phone Willy Cummings MD Primary Care Provider +1- [phone] Cecilia Lim MD Primary Care Provider Rodolfo Mantilla MD Unavailable Sabrina Ruffin MD Primary Care Provider Encounter Details Date Type Department Care Team (Late st Contact Info) Description 12/08/2017 Orders Only [address] [address] Nehemiah Munoz MD [address] [place] [address] Social History Tobacco Use Types Packs/Day Years Used Date Smoking Tobacco: Never Comments Unknown Sex and Gender Information Value Date Recorded Sex Assigned at Not on file 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 Gender Identity Not on file Sexual Orientation Not on file documented as of this encounter Plan of Treatment Not on file documented as of this encounter Visit Diagnoses Not on filedocumented in this encounter Care Teams Secretary Bookkeeper Relationship Specialty Start Date End Date Willy Cummings MD [address] [place] [address] PCP - General 08/06/17 12/20/19 Cecilia Lim MD [address] [place] [address] PCP - General Family Medicine 12/21/19 12/30/20 Sabrina Ruffin MD [address] [place] [address] PCP - General Family Medicine 12/31/20 Rodolfo Mantilla MD [address] [place] [address] Consulting Physician Neurology 12/21/19 documented as of this encounter
--- OUTSIDE RECORDS SUMMARY | 2025-05-30 19:00 | XMS_ITS | Encounter Summary ---
Author Organization [facility] Address [address] [place] [address] Care Team Providers Care Community Organization Aide Name Role Phone Willy Cummings MD Primary Care Provider +1- [phone] Cecilia Lim MD Primary Care Provider Rodolfo Mantilla MD Unavailable Sabrina Ruffin MD Primary Care Provider Encounter Details Date Type Department Care Team (Late st Contact Info) Description 12/08/2017 Orders Only [facility] Health Information Management [address] [place] [address] Nehemiah Munoz MD [address] [place] [id number] Social History Tobacco Use Types Packs/Day Years Used Date Smoking Tobacco: Never Comments Unknown Sex and Gender Information Value Date Recorded Sex Assigned at Not on file 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 Gender Identity Not on file Sexual Orientation Not on file documented as of this encounter Plan of Treatment Not on file documented as of this encounter Visit Diagnoses Not on filedocumented in this encounter Care Teams Community Organization Aide Relationship Specialty Start Date End Date Willy Cummings MD [address] [place], [place] [id number] PCP - General 08/06/17 12/20/19 Cecilia Lim MD [address] [place] [address] PCP - General Family Medicine 12/21/19 12/30/20 Sabrina Ruffin MD [address] [place] [address] PCP - General Family Medicine 12/31/20 Rodolfo Mantilla MD [address] [place] [address] Consulting Physician Neurology 12/21/19 documented as of this encounter
--- OUTSIDE RECORDS SUMMARY | 2025-05-30 19:00 | XMS_ITS | Encounter Summary ---
Author Organization [facility] Address [address] [place] [address] Phone Care Team Providers Care Special Distribution Clerk Name Role Phone Brittny Salazar MD Primary Care Provider + -[phone] Willy Cummings MD Primary Care Provider +1- [phone] Brittny Salazar MD Primary Care Provider + -[phone] Willy Cummings MD Primary Care Provider +- [phone] Brittny Salazar MD Primary Care Provider + -[phone] Willy Cummings MD Primary Care Provider +- [phone] Brittny Salazar MD Primary Care Provider + -[phone] Willy Cummings MD Primary Care Provider +- [phone] Willy Cummings MD Primary Care Provider +- [phone] Cecilia Lim MD Primary Care Provider Rodolfo [...] on file Legal Sex Female 1:04 AM GRIPS Gender Identity Not on file Sexual Orientation [...] on filedocumented in this encounter Care Teams Special Distribution Clerk Relationship Specialty Start Date End Date Brittny Salazar MD [address] [address] PCP - General 06/05/17 06/11/17 Willy Cummings MD [address] [place] [address] PCP - General 06/12/17 06/14/17 Brittny Salazar MD [address] [address] PCP - General 06/15/17 06/15/17 Willy Cummings MD [address] [place] [address] PCP - General 06/16/17 06/23/17 Brittny Salazar MD [address] [address] PCP - General 06/24/17 06/24/17 Willy Cummings MD [address] [place] [address] PCP - General 06/25/17 06/25/17 Brittny Salazar MD [address] [address] PCP - General 06/26/17 07/15/17 Willy Cummings MD [address] [place] [address] PCP - General 07/16/17 08/05/17 Willy Cummings MD [address] [place] [address] PCP - General 08/06/17 12/20/19 Cecilia Lim MD [address] [place] [address] PCP - General Family Medicine 12/21/19 12/30/20 Sabrina Ruffin MD [address] [place] [address] PCP - General Family Medicine 12/31/20 Rodolfo Mantilla MD [address] [place] [address] Consulting Physician Neurology 12/21/19 documented as of this encounter
--- OUTSIDE RECORDS SUMMARY | 2025-05-30 19:00 | XMS_ITS | Encounter Summary ---
Author Organization [facility] Address [address] [place] [address] Phone Care Team Providers Care Silk Trimmer Name Role Phone Brittny Salazar MD Primary Care Provider +[phone] Miscellaneous, Not In File Primary Care Provider Unavailable Willy Cummings MD Primary Care Provider + [phone] Willy Cummings MD Primary Care Provider + [phone] Brittny Salazar MD Primary Care Provider +[phone] Willy Cummings MD Primary Care Provider + [phone] Willy Cummings MD Primary Care Provider + [phone] Brittny Salazar MD Primary Care Provider +[phone] Willy Cummings MD Primary Care Provider + [phone] Brittny Salazar MD Primary Care Provider +[phone] Willy Cummings MD Primary Care Provider + [phone] Brittny Salazar MD Primary Care Provider +[phone] Willy Cummings MD Primary Care Provider + [phone] Brittny Salazar MD Primary Care Provider +[phone] Willy Cummings MD Primary Care Provider + [phone] Willy Cummings MD Primary Care Provider +- [phone] Cecilia Lim MD Primary Care Provider Rodolfo [...] on file 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 Sex Female 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 Gender Identity Not on file Sexual Orientation [...] on filedocumented in this encounter Care Teams Silk Trimmer Relationship Specialty Start Date End Date Brittny Salazar MD [address] [address] PCP - General 05/15/09 05/11/17 Miscellaneous, Not In File PCP - General 05/12/17 Willy Cummings MD [address] [place] [address] PCP - General 05/14/17 05/14/17 Willy Cummings MD [address] [place] [address] PCP - General 05/15/17 05/17/17 Brittny Salazar MD [address] [address] PCP - General 05/18/17 05/31/17 Willy Cummings MD [address] [place] [address] PCP - General 06/01/17 06/03/17 Willy Cummings MD [address] [place] [address] PCP - General 06/04/17 06/04/17 Brittny Salazar MD [address] [address] PCP - General 06/05/17 06/11/17 Willy Cummings MD [address] [place] [address] PCP - General 06/12/17 06/14/17 Brittny Salazar MD [address] [address] PCP - General 06/15/17 06/15/17 Willy Cummings MD [address] [place] [address] PCP - General 06/16/17 06/23/17 Brittny Salazar MD [address] [address] PCP - General 06/24/17 06/24/17 Willy Cummings MD [address] [place] [address] PCP - General 06/25/17 06/25/17 Brittny Salazar MD [address] [address] PCP - General 06/26/17 07/15/17 Willy Cummings MD [address] [place] [address] PCP - General 07/16/17 08/05/17 Willy Cummings MD [address] [place] [address] PCP - General 08/06/17 12/20/19 Cecilia Lim MD [address] [place] [address] PCP - General Family Medicine 12/21/19 12/30/20 Sabrina Ruffin MD [address] [facility] [address] [place] [address] PCP - General Family Medicine 12/31/20 Rodolfo Mantilla MD [address] [place] [address] Consulting Physician Neurology 12/21/19 documented as of this encounter
--- OUTSIDE RECORDS SUMMARY | 2025-05-30 19:00 | XMS_ITS | Clinical Summary ---
Author Organization [facility] Address [facility] [place] [address] Care Team Providers Care Local Owner Operator Truck Driver Name Role Phone Sabrina Ruffin MD Primary Care Provider +1- [phone] Social History Tobacco Use Types Packs/Day Years [...] age to complete this topic Insurance MEDICARE [facility] Care Teams Local Owner Operator Truck Driver Relationship Specialty Start Date End Date Sabrina Ruffin MD [address] [facility] [address] [place] [address] PCP - General FAMILY PRACTICE 03/02/24
--- OUTSIDE RECORDS SUMMARY | 2025-05-30 19:00 | XMS_ITS | Encounter Summary ---
Author Organization [facility] Address [address] [place] [address] Phone Care Team Providers Care Carpet Layer Name Role Phone Willy Cummings MD Primary Care Provider +1- [phone] Cecilia Lim MD Primary Care Provider Rodolfo Mantilla MD Unavailable Sabrina Ruffin MD Primary Care Provider Encounter Details Date Type Department Care Team (Late st Contact Info) Description 12/08/2017 Orders Only [facility] ProviderClifford MD [address] [place] [address] Social History Tobacco Use Types Packs/Day Years Used Date Smoking Tobacco: Never Comments Unknown Sex and Gender Information Value Date Recorded Sex Assigned at Not on file Legal Sex Female 1:04 AM PAIRER Gender Identity Not on file Sexual Orientation Not on file documented as of this encounter Plan of Treatment Not on file documented as of this encounter Procedures Procedure Name Priority Date/Time Associated Diagnosis Comments SURGICAL PATHOLOGY 12/08/2017 12 :00 AM PAIRER documented in this encounter Results * SURGICAL PATHOLOGY (12/08/2017 12:00 AM PAIRER) Narrative 12/08/2017 12:00 AM PAIRER Ordered by an unspecified provider. Historical Provider LAB PATHOLOGY ORDERABLES Final Result documented in this encounter Visit Diagnoses Not on filedocumented in this encounter Care Teams Carpet Layer Relationship Specialty Start Date End Date Willy Cummings MD [address] [place] [address] PCP - General 08/06/17 12/20/19 Cecilia Lim MD [address] [place] [address] PCP - General Family Medicine 12/21/19 12/30/20 Sabrina Ruffin MD [address] [place] [address] PCP - General Family Medicine 12/31/20 Rodolfo Mantilla MD [address] [place] [address] Consulting Physician Neurology 12/21/19 documented as of this encounter
[2025-05-30 19:18] LABS: INR 1.3; Prothrombin Time 15.7 Seconds (11.1-14.7)
[2025-05-30 19:19] LABS: Partial Thromboplastin Time 37.0 Seconds (22.3-36.8)
[2025-05-30 19:42] LABS: Lipase 27 U/L (23-300); Magnesium 2.1 mg/dL (1.6-2.3)
[2025-05-30 19:43] LABS: NT Pro B Type Natriuretic Pept 1660 pg/mL (19.9-100); Troponin I < 0.012 ng/mL (0.000-0.034)
[2025-05-30 19:43] LABS: Influenza A QL RT-PCR Negative (Negative); Influenza B QL RT-PCR Negative (Negative); RSV RNA, RT-PCR Negative (Negative); SARS-CoV-2 RNA PCR Negative (Negative)
[2025-05-30 20:07] LABS: Add Urine Microscopic? YES; Appearance Urine Clear (Clear); Glucose Urine UA Negative (Negative); Leukocyte Esterase Ur Trace LEU/UL (Negative); Nitrate Urine Negative (Negative); Non Pathogenic Casts 0-2; Specific Grav Ur 1.014 (1.001-1.035)
--- NOTE | 2025-05-30 22:44 | PC.NURSE ---
Pt and family updated regarding delay in CT scan report. They had voiced concerns with the tech while up to the restroom regarding her BP of 176/75, and has not had her night BP meds. Pt and family verbalized understanding of plan of care.
[2025-05-30] MEDS: ONDANSETRON INJ 4 MG/2 ML VIAL IV PUSH (23:04)
== END 2025-05-30 23:15 | disposition home or self-care (01) ==
PROVIDERS: Emergency Medicine; Emergency Provider Physician Assistant; PCP Family Medicine
DX: J40 Bronchitis, not specified as acute or chronic (principal); E80.6 Other disorders of bilirubin metabolism; R91.8 Other nonspecific abnormal finding of lung field; Z20.822 Contact with and (suspected) exposure to COVID-19; E11.22 Type 2 diabetes mellitus with diabetic chronic kidney disease; I12.9 Hypertensive chronic kidney disease with stage 1 through stage 4 chronic kidney disease, or unspecified chronic kidney disease; N18.9 Chronic kidney disease, unspecified; E89.0 Postprocedural hypothyroidism; E78.2 Mixed hyperlipidemia; E55.9 Vitamin D deficiency, unspecified; D50.8 Other iron deficiency anemias; G20.A1 Parkinson's disease without dyskinesia, without mention of fluctuations; G89.29 Other chronic pain; M18.11 Unilateral primary osteoarthritis of first carpometacarpal joint, right hand; F41.9 Anxiety disorder, unspecified; Z87.440 Personal history of urinary (tract) infections; Z86.718 Personal history of other venous thrombosis and embolism; Z98.2 Presence of cerebrospinal fluid drainage device; Z96.659 Presence of unspecified artificial knee joint; Z90.710 Acquired absence of both cervix and uterus; Z79.899 Other long term (current) drug therapy; R94.31 Abnormal electrocardiogram [ECG] [EKG]
CPT/HCPCS: 36415; 71046; 71275; 80053; 81001; 83690; 83735; 83880; 84484; 85025; 85055; 85380; 85610; 85730; 87637; 93005; 96374; 96375; 99284; J2405; J2919; Q9967

== ENCOUNTER 2025-06-30 09:34 | Outpatient (CLI) | payer MEDICARE, OTHER, SELFPAY ==
--- OUTSIDE RECORDS SUMMARY | 2025-06-30 09:39 | XMS_ITS | Encounter Summary ---
Author Organization [facility] Address [address] [place] [address] Phone Care Team Providers Care Felt Finisher Name Role Phone Brittny Salazar MD Primary Care Provider + -[phone] Willy Cummings MD Primary Care Provider +1- [phone] Brittny Salazar MD Primary Care Provider + -[phone] Willy Cummings MD Primary Care Provider +- [phone] Brittny Salazar MD Primary Care Provider + -[phone] Willy Cummings MD Primary Care Provider +- [phone] Brittny Salazar MD Primary Care Provider + -[phone] Willy Cummings MD Primary Care Provider +- [phone] Willy Cummings MD Primary Care Provider +- [phone] Cecilia Lim MD Primary Care Provider Rodolfo [...] on file 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 Gender Identity Not on file Sexual Orientation [...] on filedocumented in this encounter Care Teams Felt Finisher Relationship Specialty Start Date End Date Brittny Salazar MD [address] [address] PCP - General 06/05/17 06/11/17 Willy Cummings MD [address] [place] [address] PCP - General 06/12/17 06/14/17 Brittny Salazar MD [address] [address] PCP - General 06/15/17 06/15/17 Willy Cummings MD [address] [place] [address] PCP - General 06/16/17 06/23/17 Brittny Salazar MD [address] [address] PCP - General 06/24/17 06/24/17 Willy Cummings MD [address] [place] [address] PCP - General 06/25/17 06/25/17 Brittny Salazar MD [address] [address] PCP - General 06/26/17 07/15/17 Willy Cummings MD [address] [place] [address] PCP - General 07/16/17 08/05/17 Willy Cummings MD [address] [place] [address] PCP - General 08/06/17 12/20/19 Cecilia Lim MD [address] [place] [address] PCP - General Family Medicine 12/21/19 12/30/20 Sabrina Ruffin MD [address] [place] [address] PCP - General Family Medicine 12/31/20 Rodolfo Mantilla MD [address] [place] [address] Consulting Physician Neurology 12/21/19 documented as of this encounter
--- OUTSIDE RECORDS SUMMARY | 2025-06-30 09:39 | XMS_ITS | Encounter Summary ---
Author Organization [facility] Healthcare Address [address] [place] [address] Care Team Providers Care Terminal Operations Supervisor Name Role Phone Willy Cummings MD Primary Care Provider +1- [phone] Cecilia Lim MD Primary Care Provider oRdolfo Mantilla MD Unavailable Sabrina Ruffin MD Primary Care Provider Encounter Details Date Type Department Care Team (Late st Contact Info) Description 12/08/2017 Orders Only [address] [address] Nehemiah Munoz MD [address] [place] [address] Social History Tobacco Use Types Packs/Day Years Used Date Smoking Tobacco: Never Comments Unknown Sex and Gender Information Value Date Recorded Sex Assigned at Not on file 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 Gender Identity Not on file Sexual Orientation Not on file documented as of this encounter Plan of Treatment Not on file documented as of this encounter Visit Diagnoses Not on filedocumented in this encounter Care Teams Terminal Operations Supervisor Relationship Specialty Start Date End Date Willy Cummings MD [address] [place] [address] PCP - General 08/06/17 12/20/19 Cecilia Lim MD [address] [place] [address] PCP - General Family Medicine 12/21/19 12/30/20 Sabrina Ruffin MD [address] [place] [address] PCP - General Family Medicine 12/31/20 Rodolfo Mantilla MD [address] [place] [address] Consulting Physician Neurology 12/21/19 documented as of this encounter
--- OUTSIDE RECORDS SUMMARY | 2025-06-30 09:39 | XMS_ITS | Encounter Summary ---
Author Organization [facility] Address [address] [place] [address] Care Team Providers Care Jewel Inspector Name Role Phone Willy Cummings MD Primary Care Provider +1- [phone] Cecilia Lim MD Primary Care Provider Rodolfo Mantilla MD Unavailable Sabrina Ruffin MD Primary Care Provider Encounter Details Date Type Department Care Team (Late st Contact Info) Description 12/08/2017 Orders Only [facility] Health Information Management [address] [place] [address] Nehemiah Munoz MD [address] [place] [id number] Social History Tobacco Use Types Packs/Day Years Used Date Smoking Tobacco: Never Comments Unknown Sex and Gender Information Value Date Recorded Sex Assigned at Not on file 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 Gender Identity Not on file Sexual Orientation Not on file documented as of this encounter Plan of Treatment Not on file documented as of this encounter Visit Diagnoses Not on filedocumented in this encounter Care Teams Jewel Inspector Relationship Specialty Start Date End Date Willy Cummings MD [address] [place], [place] [address] PCP - General 08/06/17 12/20/19 Cecilia Lim MD [address] [place] [address] PCP - General Family Medicine 12/21/19 12/30/20 Sabrina Ruffin MD [address] [place] [address] PCP - General Family Medicine 12/31/20 Rodolfo Mantilla MD [address] [place] [address] Consulting Physician Neurology 12/21/19 documented as of this encounter
--- OUTSIDE RECORDS SUMMARY | 2025-06-30 09:39 | XMS_ITS | Clinical Summary ---
Author Organization [facility] Address [address] [place] [address] Care Team Providers Care Material Dispatcher Name Role Phone Rodolfo Mantilla MD Unavailable [...] study. 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 Assessment & Plan (09/16/2019 12:58 PM COMMERCIAL FOOD INSTRUCTOR): Ms. Alex is a 73 y/o woman [...] CD/LD. Assessment & Plan (11/24/2018 12:07 PM COMMERCIAL FOOD INSTRUCTOR): Assessment: Ms. Alex is a 72y/o woman [...] file Legal Sex Female 1:04 AM COMMERCIAL FOOD INSTRUCTOR Gender Identity Not on file Sexual [...] 08/17/2017, 10/2009 Medical Devices Implanted Type Area Mortgage Loan Interviewer Device Identifier Shelf Expiration Date Model / Serial / Lot Medtronic Inc [id number] Nitesh Antibiotic Kit Catheter Sterile Latex Free - [id number] Implanted:Qty: 1 on 07/27/2020 by Leobardo Perez MD at [facility] Right: Head [employer] 12/19/2021 [id number] / / [id number] Medtronic Usa Inc X 46314 Strata Ii Csf Programmable Flow Control Ball [place] Mechanism - [id number] Implanted:Qty: 1 on 07/27/2020 by Leobardo Perez MD at [facility] Right: Head Medtronic Inc 11/19/2022 [id number] / / [id number] Procedures Procedure Name Priority Date/Time Associated Diagnosis [...] ORDERABLES Final Result AVINASH BAEZ (GAVIN) 1 [facility] Department of Laboratories [place], [place] [id number] * COLONOSCOPY (07/27/2012 12:00 AM CDT) Anatomical Region Laterality Modality Other Narrative 07/27/2012 12:00 AM CDT Ordered by an unspecified provider. Procedure Note Provider, MD Clifford - 07/27/2012 12:00 AM CDT PROCEDURE REPORT Patient: JONNIE ALEX Account: [id number] Room No: : 1945 Patient Type: SDS Attend.: Christopher Grant M.D. Admit Date: 07/27/2012 Dict.: Christopher Grant M.D. Disch. Date: NAME OF PROCEDURE: Colonoscopy. DATE: 07/27/12. HISTORY: 66-year-old female presents for screening colonoscopy. PHYSICAL EXAMINATION: Morbidly obese female. Lungs are clear.Cardiovascular exam is unremarkable. PROCEDURE: Colonoscopy was attempted with the [employer] video endoscope.She was premedicated by anesthesia. On [...] Relevant to Health Maintenance Insurance MEDICARE [facility] Address: [facility] [address] [place] [address] [facility] MEDICARE [facility] MEDICARE [facility] Advance Directives For more information, please contact: [phone] * Full Code (Latest Code Status on File) Date Activated Date Inactivated Comments 07/23/2020 3:27 PM 07/28/2020 7:16 PM Care Teams Material Dispatcher Relationship Specialty Start Date End Date Sabrina Ruffin MD [address] [facility] [address] [place] [id number] PCP - General Family Medicine 12/31/20 Rodolfo Mantilla MD [address] [place] [address] Consulting Physician Neurology 12/21/19
--- OUTSIDE RECORDS SUMMARY | 2025-06-30 09:39 | XMS_ITS | Encounter Summary ---
Author Organization [facility] Address [address] [place] [address] Phone Care Team Providers Care Pv Installer Tech Name Role Phone Brittny Salazar MD Primary Care Provider +[phone] Miscellaneous, Not In File Primary Care Provider Unavailable Willy Cummings MD Primary Care Provider + [phone] Willy Cummings MD Primary Care Provider + [phone] Brittny Salazar MD Primary Care Provider +[phone] Willy Cummings MD Primary Care Provider + [phone] Willy Cummings MD Primary Care Provider + [phone] Brittny Salazar MD Primary Care Provider +[phone] Willy Cummings MD Primary Care Provider + [phone] Brittny Salazar MD Primary Care Provider +[phone] Willy Cummings MD Primary Care Provider + [phone] Brittny Salazar MD Primary Care Provider +[phone] Willy Cummings MD Primary Care Provider + [phone] Brittny Salazar MD Primary Care Provider +[phone] Willy Cummings MD Primary Care Provider + [phone] Willy Cummings MD Primary Care Provider +- [phone] Cecilia Lim MD Primary Care Provider Rodolfo [...] on file Legal Sex Female 1:04 AM CLINICAL LIAISON Gender Identity Not on file Sexual Orientation [...] on filedocumented in this encounter Care Teams Pv Installer Tech Relationship Specialty Start Date End Date Brittny Salazar MD [address] [address] PCP - General 05/15/09 05/11/17 Miscellaneous, Not In File PCP - General 05/12/17 Willy Cummings MD [address] [place] [address] PCP - General 05/14/17 05/14/17 Willy Cummings MD [address] [place] [address] PCP - General 05/15/17 05/17/17 Brittny Salazar MD [address] [address] PCP - General 05/18/17 05/31/17 Wilyl Cummings MD [address] [place] [address] PCP - General 06/01/17 06/03/17 Willy Cummings MD [address] [place] [address] PCP - General 06/04/17 06/04/17 Brittny Salazar MD [address] [address] PCP - General 06/05/17 06/11/17 Willy Cummings MD [address] [place] [address] PCP - General 06/12/17 06/14/17 Brittny Salazar MD [address] [address] PCP - General 06/15/17 06/15/17 Willy Cummings MD [address] [place] [address] PCP - General 06/16/17 06/23/17 Brittny Salazar MD [address] [address] PCP - General 06/24/17 06/24/17 Willy Cummings MD [address] [place] [address] PCP - General 06/25/17 06/25/17 Brittny Salazar MD [address] [address] PCP - General 06/26/17 07/15/17 Willy Cummings MD [address] [place] [address] PCP - General 07/16/17 08/05/17 Willy Cummings MD [address] [place] [address] PCP - General 08/06/17 12/20/19 Cecilia Lim MD [address] [place] [address] PCP - General Family Medicine 12/21/19 12/30/20 Sabrina Ruffin MD [address] [facility] [address] [place] [address] PCP - General Family Medicine 12/31/20 Rodolfo Mantilla MD [address] [place] [address] Consulting Physician Neurology 12/21/19 documented as of this encounter
--- OUTSIDE RECORDS SUMMARY | 2025-06-30 09:39 | XMS_ITS | Encounter Summary ---
Author Organization [facility] Address [address] [place] [address] Phone Care Team Providers Care Mobile Ui Designer Name Role Phone Willy Cummings MD Primary Care Provider +1- [phone] Cecilia Lim MD Primary Care Provider Rodolfo Mantilla MD Unavailable Sabrina Ruffin MD Primary Care Provider Encounter Details Date Type Department Care Team (Late st Contact Info) Description 12/08/2017 Orders Only [facility] ProviderClifford MD [address] [place] [address] Social History Tobacco Use Types Packs/Day Years Used Date Smoking Tobacco: Never Comments Unknown Sex and Gender Information Value Date Recorded Sex Assigned at Not on file Legal Sex Female 1:04 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 Historical Provider LAB PATHOLOGY ORDERABLES Final Result documented in this encounter Visit Diagnoses Not on filedocumented in this encounter Care Teams Mobile Ui Designer Relationship Specialty Start Date End Date Willy Cummings MD [address] [place] [address] PCP - General 08/06/17 12/20/19 Cecilia Lim MD [address] [place] [address] PCP - General Family Medicine 12/21/19 12/30/20 Sabrina Ruffin MD [address] [place] [address] PCP - General Family Medicine 12/31/20 Rodolfo Mantilla MD [address] [place] [address] Consulting Physician Neurology 12/21/19 documented as of this encounter
[2025-06-30 11:11] LABS: Hematocrit 33.7 % (37.0-47.0); Hemoglobin 10.0 g/dL (12.0-15.0); Immature Granulocyte Percent A 0.6 % (0-0.5); Lymphocytes Absolute Auto 1.26 K/mm3 (0.9-3.2); Mean Corpuscular HGB Conc 29.7 g/dl (32-36); Mean Corpuscular Hemoglobin 19.1 pg (26-34); Mean Corpuscular Volume 64.3 fl (80-100); Nucleated Red Blood Cells Absolute Auto 0.000 K/mm3 (0.0-0.012); Nucleated Red Blood Cells Perc 0.0 % (0.0-0.2); Platelet Count Result 188 k/mm3 (150-375); Red Blood Count 5.24 M/mm3 (4.2-5.4); White Blood Count 5.3 K/mm3 (4.5-10.0)
[2025-06-30 11:45] LABS: Alanine Aminotransferase 15 U/L (6-35); Albumin Level 4.0 g/dL (3.5-5.1); Alkaline Phosphatase 61 U/L (38-126); Anion Gap 6 mmol/L (4-12); Aspartate Amino Transferase 26 U/L (14-36); Bilirubin,Total 1.0 mg/dL (0.2-1.3); Blood Urea Nitrogen 20 mg/dL (7-17); Calcium 9.0 mg/dL (8.4-10.2); Carbon Dioxide 28 mmol/L (22-30); Chloride 104 mmol/L (98-107); Cholesterol 180 mg/dL (0-200); Estimated Glomerular Filt Rate 56; Glucose 124 mg/dL (65-110); HDL Direct 46 mg/dL; Hemoglobin A1C 6.1 % (<5.7); Potassium 4.2 mmol/L (3.4-5.0); Sodium 138 mmol/L (137-145); Total Protein 6.8 g/dL (6.3-8.2); Triglycerides 127 mg/dL (<150)
[2025-06-30 11:50] LABS: Hypochromasia 1+; Ovalocytes 1+; Schistocytes Rare
[2025-06-30 11:51] LABS: Microcytosis 1+ (NORMAL)
[2025-06-30 11:52] LABS: Basophilic Stippling Occasional
[2025-06-30 11:53] LABS: Acanthocytes Occasional
[2025-06-30 12:02] LABS: Free T4 Free Thyroxine 1.38 ng/dL (0.78-2.19)
[2025-06-30 12:21] LABS: Thyroid Stimulating Hormone 0.675 uIU/mL (0.465-4.680)
== END 2025-06-30 09:35 | disposition home or self-care (01) ==
PROVIDERS: PCP Family Medicine; Visit Provider Physician Assistant
DX: E07.9 Disorder of thyroid, unspecified (principal); I10 Essential (primary) hypertension; F41.1 Generalized anxiety disorder; F32.A Depression, unspecified; E78.2 Mixed hyperlipidemia; E11.9 Type 2 diabetes mellitus without complications
CPT/HCPCS: 36415; 80053; 80061; 83036; 84439; 84443; 85025

== ENCOUNTER 2025-09-05 07:45 | Outpatient (CLI) | payer MEDICARE, OTHER, SELFPAY ==
--- NOTE | ~2025-09-05 | CT_ITS ---
EXAMINATION:CT chest high resolution wo az DATE: 09/05/2025 08:00 INDICATION: Abnormal exam TECHNIQUE: Computed tomography (CT) of the chest was performed without intravenous contrast. The dose-length product (DLP) was 347.27 mGy-cm. COMPARISON: May 30, 2025 FINDINGS: Numerous bilateral subcentimeter nodules are not significantly changed including the largest 7.8 mm nodule in the medial right lower lobe seen on image 75 of series 4 today's exam. The remainder the exam is unremarkable. IMPRESSION: 1. Stable exam including several subcentimeter nodules. 2. Recommended follow-up examination in 3-6 months. If at least six-month stability is documented, then nodules can be followed up in 6 months thereafter. Follow-up for 24 months required to confirm radiographic benignity. Reviewed, dictated and finalized at location A. REGISTER BALANCER IMPRESSION: 1. Stable exam including several subcentimeter nodules. 2. Recommended follow-up examination in 3-6 months. If at least six-month stabi lity is documented, then nodules can be followed up in 6 months thereafter. Fol low-up for 24 months required to confirm radiographic benignity.
--- OUTSIDE RECORDS SUMMARY | 2025-09-05 07:49 | XMS_ITS | Encounter Summary ---
Author Organization [facility] Address [address] [place] [address] Phone Care Team Providers Care Stem Processing Machine Operator Name Role Phone Willy Cummings MD Primary Care Provider +1- [phone] Cecilia Lim MD Primary Care Provider Rodolfo Mantilla MD Unavailable Sabrina Ruffin MD Primary Care Provider Encounter Details Date Type Department Care Team (Late st Contact Info) Description 12/08/2017 Orders Only [facility] ProviderClifford MD [address] [place] [address] Social History Tobacco Use Types Packs/Day Years Used Date Smoking Tobacco: Never Comments Unknown Sex and Gender Information Value Date Recorded Sex Assigned at Not on file Legal Sex Female 1:04 AM COLLAR TRIMMER Gender Identity Not on file Sexual Orientation Not on file documented as of this encounter Plan of Treatment Not on file documented as of this encounter Procedures Procedure Name Priority Date/Time Associated Diagnosis Comments SURGICAL PATHOLOGY 12/08/2017 12 :00 AM COLLAR TRIMMER documented in this encounter Results * SURGICAL PATHOLOGY (12/08/2017 12:00 AM COLLAR TRIMMER) Narrative 12/08/2017 12:00 AM COLLAR TRIMMER Ordered by an unspecified provider. Historical Provider LAB PATHOLOGY ORDERABLES Final Result documented in this encounter Visit Diagnoses Not on filedocumented in this encounter Care Teams Stem Processing Machine Operator Relationship Specialty Start Date End Date Willy Cummings MD [address] [place] [address] PCP - General 08/06/17 12/20/19 Cecilia Lim MD [address] [place] [address] PCP - General Family Medicine 12/21/19 12/30/20 Sabrina Ruffin MD [address] [place] [address] PCP - General Family Medicine 12/31/20 Rodolfo Mantilla MD [address] [place] [address] Consulting Physician Neurology 12/21/19 documented as of this encounter
--- OUTSIDE RECORDS SUMMARY | 2025-09-05 07:49 | XMS_ITS | Clinical Summary ---
Author Organization [facility] Address [address] [place] [address] Care Team Providers Care Weaver Hand Name Role Phone Rodolfo Mantilla MD [...] study. 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 Assessment & Plan (09/16/2019 12:58 PM PT SKILLED): Ms. Alex is a 73 y/o woman [...] CD/LD. Assessment & Plan (11/24/2018 12:07 PM PT SKILLED): Assessment: Ms. Alex is a 72y/o woman [...] wall inflammatio n Cataract Depression Diabetes mellitus History of transfusion Hypertension Thyroid disease hypothyroidism [...] on file Legal Sex Female 1:04 AM PT SKILLED Gender Identity Not on file Sexual Orientation [...] 08/17/2017, 10/2009 Medical Devices Implanted Type Area Solar Photovoltaic Systems Engineer Device Identifier Shelf Expiration Date Model / Serial / Lot Medtronic Inc 58919 Nitesh Antibiotic Kit Catheter Sterile Latex Free - [id number] Implanted:Qty: 1 on 07/27/2020 by Leobardo Perez MD at [facility] Right: Head [employer] 12/19/2021 [id number] / / [id number] Medtronic Usa Inc X 19019 Strata Ii Csf Programmable Flow Control Ball [place] Mechanism - [id number] Implanted:Qty: 1 on 07/27/2020 by Leobardo Perez MD at [facility] Right: Head Med[employer]onic Inc 11/19/2022 [id number] / / [id number] Procedures Procedure Name Priority Date/Time Associated Diagnosis [...] D STOOLS ORDERABLES Final Result AVINASH BAEZ ([place]) 1 [facility] Department [place] [address] * COLONOSCOPY (07/27/2012 12:00 AM CDT) Anatomical Region Laterality Modality Other Narrative 07/27/2012 12:00 AM CDT Ordered by an unspecified provider. Procedure Note Provider, MD Clifford - 07/27/2012 12:00 AM CDT PROCEDURE REPORT Patient: JONNIE ALEX Account: [id number] Room No: : 1945 Patient Type: SDS Attend.: Christopher Grant M.D. Admit Date: 07/27/2012 Dict.: Christopher Grant M.D. Disch. Date: NAME OF PROCEDURE: Colonoscopy. DATE: 07/27/12. HISTORY: 66-year-old female presents for screening colonoscopy. PHYSICAL EXAMINATION: Morbidly obese female. Lungs are clear.Cardiovascular exam is unremarkable. PROCEDURE: Colonoscopy was attempted with the Unblab video endoscope.She was premedicated by anesthesia. On [...] Recently Relevant to Health Maintenance Insurance MEDICARE [facility] MEDICARE [facility] MEDICARE [facility] Advance Directives For more information, please contact: [phone] * Full Code (Latest Code Status on File) Date Activated Date Inactivated Comments 07/23/2020 3:27 PM 07/28/2020 7:16 PM Care Teams Weaver Hand Relationship Specialty Start Date End Date Sabrina Ruffin MD [address] [place] [address] PCP - General Family Medicine 12/31/20 Rodolfo Mantilla MD [address] [place] [address] Consulting Physician Neurology 12/21/19
--- OUTSIDE RECORDS SUMMARY | 2025-09-05 07:49 | XMS_ITS | Encounter Summary ---
Author Organization [facility] Address [address] [place] [address] Phone Care Team Providers Care Military Science Teacher Name Role Phone Brittny Salazar MD Primary Care Provider +[phone] Miscellaneous, Not In File Primary Care Provider Unavailable Willy Cummings MD Primary Care Provider + [phone] Willy Cummings MD Primary Care Provider + [phone] Brittny Salazar MD Primary Care Provider +[phone] Willy Cummings MD Primary Care Provider + [phone] Willy Cummings MD Primary Care Provider + [phone] Brittny Salazar MD Primary Care Provider +[phone] Willy Cummings MD Primary Care Provider + [phone] Brittny Salazar MD Primary Care Provider +[phone] Willy Cummings MD Primary Care Provider + [phone] Brittny Salazar MD Primary Care Provider +[phone] Willy Cummings MD Primary Care Provider + [phone] Brittny Salazar MD Primary Care Provider +[phone] Willy Cummings MD Primary Care Provider + [phone] Willy Cummings MD Primary Care Provider +- [phone] Cecilia Lim MD Primary Care Provider Rodolfo [...] on file Legal Sex Female 1:04 AM GIS PROGRAMMER Gender Identity Not on file Sexual Orientation Not on file documented as of this encounter Functional Status documented as of this encounter Plan of [...] on filedocumented in this encounter Care Teams Military Science Teacher Relationship Specialty Start Date End Date Brittny Salazar MD [address] [address] PCP - General 05/15/09 05/11/17 Miscellaneous, Not In File PCP - General 05/12/17 Willy Cummings MD [address] [place] [address] PCP - General 05/14/17 05/14/17 Willy Cummings MD [address] [place] [address] PCP - General 05/15/17 05/17/17 Brittny Salazar MD [address] [address] PCP - General 05/18/17 05/31/17 Willy Cummings MD [address] [place] [address] PCP - General 06/01/17 06/03/17 Willy Cummings MD [address] [place] [address] PCP - General 06/04/17 06/04/17 Brittny Salazar MD [address] [address] PCP - General 06/05/17 06/11/17 Willy Cummings MD [address] [place] [address] PCP - General 06/12/17 06/14/17 Brittny Salazar MD [address] [address] PCP - General 06/15/17 06/15/17 Willy Cummings MD [address] [place] [address] PCP - General 06/16/17 06/23/17 Brittny Salazar MD [address] [address] PCP - General 06/24/17 06/24/17 Willy Cummings MD [address] [place] [address] PCP - General 06/25/17 06/25/17 Brittny Salazar MD [address] [address] PCP - General 06/26/17 07/15/17 Willy Cummings MD [address] [place] [address] PCP - General 07/16/17 08/05/17 Willy Cummings MD [address] [place] [address] PCP - General 08/06/17 12/20/19 Cecilia Lim MD [address] [place] [address] PCP - General Family Medicine 12/21/19 12/30/20 Sabrina Ruffin MD [address] [facility] [address] [place] [address] PCP - General Family Medicine 12/31/20 Rodolfo Mantilla MD [address] [place] [address] Consulting Physician Neurology 12/21/19 documented as of this encounter
--- OUTSIDE RECORDS SUMMARY | 2025-09-05 07:49 | XMS_ITS | Encounter Summary ---
Author Organization [facility] Address [address] [place] [address] Phone Care Team Providers Care Craft Demonstrator Name Role Phone Brittny Salazar MD Primary Care Provider + -[phone] Willy Cummings MD Primary Care Provider +1- [phone] Brittny Salazar MD Primary Care Provider + -[phone] Willy Cummings MD Primary Care Provider +- [phone] Brittny Salazar MD Primary Care Provider + -[phone] Willy Cummings MD Primary Care Provider +- [phone] Brittny Salazar MD Primary Care Provider + -[phone] Willy Cummings MD Primary Care Provider +- [phone] Willy Cummings MD Primary Care Provider +- [phone] Cecilia Lim MD Primary Care Provider Rodolfo [...] on file Legal Sex Female 1:04 AM SOURCING INTERN Gender Identity Not on file Sexual Orientation [...] on filedocumented in this encounter Care Teams Craft Demonstrator Relationship Specialty Start Date End Date Brittny Salazar MD [address] [address] PCP - General 06/05/17 06/11/17 Willy Cummings MD [address] [place] [address] PCP - General 06/12/17 06/14/17 Brittny Salazar MD [address] [address] PCP - General 06/15/17 06/15/17 Willy Cummings MD [address] [place] [address] PCP - General 06/16/17 06/23/17 Brittny Salazar MD [address] [address] PCP - General 06/24/17 06/24/17 Willy Cummings MD [address] [place] [address] PCP - General 06/25/17 06/25/17 Brittny Salazar MD [address] [address] PCP - General 06/26/17 07/15/17 Willy Cummings MD [address] [place] [address] PCP - General 07/16/17 08/05/17 Willy Cummings MD [address] [place] [address] PCP - General 08/06/17 12/20/19 Cecilia Lim MD [address] [place] [address] PCP - General Family Medicine 12/21/19 12/30/20 Sabrina Ruffin MD [address] [place] [address] PCP - General Family Medicine 12/31/20 Rodolfo Mantilla MD [address] [place] [address] Consulting Physician Neurology 12/21/19 documented as of this encounter
--- OUTSIDE RECORDS SUMMARY | 2025-09-05 07:49 | XMS_ITS | Encounter Summary ---
Author Organization [facility] Address [address] [place] [address] Care Team Providers Care Ecg Technician Name Role Phone Willy Cummings MD Primary Care Provider +1- [phone] Cecilia Lim MD Primary Care Provider Rodolfo Mantilla MD Unavailable Sabrina Ruffin MD Primary Care Provider Encounter Details Date Type Department Care Team (Late st Contact Info) Description 12/08/2017 Orders Only [address] [address] Nehemiah Munoz MD [address] [place] [address] Social History Tobacco Use Types Packs/Day Years Used Date Smoking Tobacco: Never Comments Unknown Sex and Gender Information Value Date Recorded Sex Assigned at Not on file Legal Sex Female 1:04 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 MAINTENANCE INSPECTOR Gender Identity Not on file Sexual Orientation Not on file documented as of this encounter Plan of Treatment Not on file documented as of this encounter Visit Diagnoses Not on filedocumented in this encounter Care Teams Ecg Technician Relationship Specialty Start Date End Date Willy Cummings MD [address] [place] [address] PCP - General 08/06/17 12/20/19 Cecilia Lim MD [address] [place] [address] PCP - General Family Medicine 12/21/19 12/30/20 Sabrina Ruffin MD [address] [place] [address] PCP - General Family Medicine 12/31/20 Rodolfo Mantilla MD [address] [place] [address] Consulting Physician Neurology 12/21/19 documented as of this encounter
--- OUTSIDE RECORDS SUMMARY | 2025-09-05 07:49 | XMS_ITS | Encounter Summary ---
Author Organization [facility] Address [address] [place] [address] Care Team Providers Care Pottery Machine Operator Name Role Phone Willy Cummings MD Primary Care Provider +1- [phone] Cecilia Lim MD Primary Care Provider Rodolfo Mantilla MD Unavailable Sabrina Ruffin MD Primary Care Provider Encounter Details Date Type Department Care Team (Late st Contact Info) Description 12/08/2017 Orders Only [facility] Health Information Management 1 [place] [address] Nehemiah Munoz MD [address] [place] [id number] Social History Tobacco Use Types Packs/Day Years Used Date Smoking Tobacco: Never Comments Unknown Sex and Gender Information Value Date Recorded Sex Assigned at Not on file Legal Sex Female 1:04 AM MAKEUP ARTISTRY INSTRUCTOR Gender Identity Not on file Sexual Orientation Not on file documented as of this encounter Plan of Treatment Not on file documented as of this encounter Visit Diagnoses Not on filedocumented in this encounter Care Teams Pottery Machine Operator Relationship Specialty Start Date End Date Willy Cummings MD [address] [place], [place] [address] PCP - General 08/06/17 12/20/19 Cecilia Lim MD [address] [place] [address] PCP - General Family Medicine 12/21/19 12/30/20 Sabrina Ruffin MD [address] [place] [address] PCP - General Family Medicine 12/31/20 Rodolfo Mantilla MD [address] [place] [address] Consulting Physician Neurology 12/21/19 documented as of this encounter
--- OUTSIDE RECORDS SUMMARY | 2025-09-05 07:49 | XMS_ITS | Clinical Summary ---
Author Organization [facility] Address [facility] [place] [address] Care Team Providers Care Director Of Philanthropy Name Role Phone Sabrina Ruffin MD Primary Care Provider +1- [phone] Social History Tobacco Use Types Packs/Day Years [...] Tdap) 12/16/2020 12/16/2010 COVID-19 Vaccine ( season) 2025 08/19/2022, 03/03/2022, 08/17/2021, Additional history exists Influenza Adult (#1) 2025 07/26/2019, 08/16/2018, 08/17/2017, Additional history exists Pneumococcal Vaccine: 50+ Years Completed 03/14/2022, 08/17/2017, 06/26/2010 Hepatitis A Vaccines Aged Out No long er eligible based on patient's age to complete this topic Meningococcal B Vaccine Aged Out No l onger eligible based on patient's age to complete this topic Meningococcal Vaccine Aged Out No qian yara eligible based on patient's age to complete this topic RSV Immunizations Under 20 Months Aged Out No longer eligible based on patient's age to complete this topic Insurance MEDICARE [facility] Care Teams Director Of Philanthropy Relationship Specialty Start Date End Date Sabrina Ruffin MD [address] [facility] [address] [place] [address] PCP - General FAMILY PRACTICE 03/02/24
== END 2025-09-05 07:46 | disposition home or self-care (01) ==
PROVIDERS: PCP Family Medicine; Visit Provider Physician Assistant
DX: R91.8 Other nonspecific abnormal finding of lung field (principal)
CPT/HCPCS: 71250